=== PATIENT | female | born 1955 | race Caucasian/White ===

== ENCOUNTER 2018-01-03 06:04 | Day surgery (SDC) | payer MEDICARE, MEDICAID, SELFPAY ==
[2017-12-03 11:01] VITALS: BP 130/79; BMI 24.5
[2018-01-03 06:35] VITALS: BP 127/50; PULSE 77; RESP 16; TEMP 36.6; O2SAT 95; BMI 24.8
[2018-01-03 06:51] LABS: Bedside Glucose 171 mg/dL (70-110)
--- NOTE | 2018-01-03 08:24 | COLBX_PTH ---
PATIENT: ANIRUDH SHELBY LOC: EN U#:[id number] AGE/SX: 62/F ROOM: RE01/03/[address]: Dr. Marlen Narvaez MD : 1955 BED: DIS: 01/03/2018 SPEC #: [id number] RECD: 01/03/18 15:19 STATUS: SCOTT EMELY #: [id number] BALDEV: 01/03/18 08:[address]: Marlen Narvaez DEPT: SURGICAL PATHOLOGY RECD BY: Vargas Moore ENTERED: 01/04/18 09:29 SP TYPE: COLON BX RAFFAELE DR: Dr. Esdras Sy MD Tissues: A - Transverse colon B - Descending colon C - Descending colon D - Sigmoid colon biopsy E - Sigmoid colon biopsy Procedures: Surgery Specimen Level IV HEADER OPERATION: Colonoscopy PRE-OP DIAGNOSIS: Rectal bleeding TISSUE SUBMITTED: A ? Distal transverse colon polyp biopsy, B ? Descending colon polyp biopsy, C ? Distal descending colon polyp biopsy, D ? Mid sigmoid mass biopsy #1, E - Mid sigmoid mass biopsy?#2 MICROSCOPIC DIAGNOSIS A. Distal transverse colon polyp, biopsy: Fragments of tubular adenoma. B. Descending colon polyp, biopsy: Fragments of tubular adenoma. C. Distal descending colon polyp, biopsy: Tubular adenoma. D. Mid sigmoid mass, biopsy #1: Fragments of tubular adenoma. E. Mid sigmoid mass, biopsy #2: Tubular adenoma. AM:curtis 01/05/18 MICROSCOPIC DESCRIPTION Slides are reviewed. GROSS DESCRIPTION A - Received in fixative is one container labeled with the patient's name and designated transverse colon polyp biopsy. The specimen consists of multiple irregular fragments of light welsh soft tissue that in aggregate measure 0.5 x 0.5 x 0.1 cm. The specimen is totally submitted in one cassette. B - Received in fixative is one container labeled with the patient's name and designated descending colon polyp biopsy. The specimen consists of multiple irregular fragments of light welsh soft tissue that in aggregate measure 0.5 x 0.3 x 0.1 cm. The specimen is totally submitted in one cassette. C - Received in fixative is one container labeled with the patient's name and designated distal descending colon polyp biopsy. The specimen consists of two irregular fragments of light welsh soft tissue that in aggregate measure 0.4 x 0.3 x 0.1 cm. The specimen is totally submitted in one cassette. D - Received in fixative is one container labeled with the patient's name and designated mid sigmoid mass biopsy #1. The specimen consists of multiple irregular fragments of light welsh soft tissue that in aggregate measure 0.6 x 0.3 x 0.1 cm. The specimen is totally submitted in one cassette. E - Received in fixative is one container labeled with the patient's name and designated mid sigmoid mass biopsy #2. The specimen consists of one irregular fragment of light welsh soft tissue that measures 0.3 x 0.3 x 0.1 cm. The specimen is totally submitted in one cassette. / SJ:rg 01/04/18 TC:5 [facility]: [id number] x5 ADDENDUM ADDENDUM ADDENDUM ADDENDUM ADDENDUM ADDENDUM ADDENDUM ADDENDUM ADDENDUM ADDENDUM ADDENDUM ADDENDUM ADDENDUM 09/07/2018 15:57 ADDENDUM 09/07/2018 15:57 ADDENDUM 09/07/2018 15:57 ADDENDUM 09/07/2018 15:57 ADDENDUM 09/07/2018 15:57 This addendum is added to incorporate an outside pathology consultation report. The case was examined at [facility] (#[id number]) and the following diagnosis was rendered. A. Distal transverse colon polyp, biopsy: Multiple fragments of tubular adenoma. B. Descending colon polyp, biopsy: Fragments of tubular adenoma. C. Distal descending colon polyp, biopsy: Tubular adenoma. D. Mid sigmoid mass, biopsy #1: Multiple fragments of tubular adenoma. E. Mid sigmoid mass, biopsy #2: Tubular adenoma. Please see complete above mentioned consultation report in EMR
[2018-01-03 09:05] VITALS: BP 113/63; BP 127/50; PULSE 75; RESP 16; TEMP 36.1; O2SAT 99
[2018-01-03 09:10] VITALS: BP 127/50; BP 127/56; PULSE 72; RESP 16; O2SAT 96
[2018-01-03 09:15] VITALS: BP 127/50; BP 127/59; PULSE 77; RESP 16; O2SAT 97
[2018-01-03 09:20] VITALS: BP 127/50; BP 129/64; PULSE 74; RESP 16; TEMP 36.3; O2SAT 99
[2018-01-03 09:41] LABS: Absolute Neutrophil Count 4.1 X10^3/uL (2.0-7.7); Basophil# 0.04 X10^3/uL; Basophil% 0.6 % (0-1); Eosinophil# 0.16 X10^3/uL; Eosinophils% 2.4 % (0-5); Hematocrit 35.8 % (37-47); Lymphocyte % 32.4 % (19-41); Mean Corp Hgb Conc 30.7 g/gl (32-36); Mean Corpuscular Hgb 25.5 pg (27.0-32.0); Mean Corpuscular Volume 82.9 fL (81-99); Monocyte# 0.33 X10^3/uL; Monocyte% 4.9 % (0-10); Neutrophil # 4.05 X10^3/uL (2.7-7.7); Neutrophil % 59.6 % (47-70); POSITIVE COUNT NO; POSITIVE DIFFERENTIAL NO; POSITIVE MORPHOLOGY NO; Platelet Count 206 K/mm3 (150-450); RBC Distribution Width CV 15.8 % (11.6-14.6); RBC Distribution Width SD 48.3 fl (35.1-43.9); Red Blood Count 4.32 M/mm3 (4.2-5.4); White Blood Count 6.8 K/mm3 (4.4-11.0)
[2018-01-03 09:51] LABS: ALB/GLOB Ratio 0.8 RATIO (0.9-2.4); AST(SGOT) 20 U/L (15-37); Alanine Aminotransfer ALT/SGPT 20 U/L (13-56); Albumin, Serum 3.2 g/dL (3.2-5.0); Alkaline Phosphatase 100 U/L (45-117); Anion Gap 8 (5-15); BUN 8 mg/dL (7-18); BUN/Creat Ratio 10.4 RATIO (10-20); Calcium,Total 8.5 mg/dL (8.5-10.1); Chloride 103 mmol/L (98-107); Creatinine, Serum 0.77 mg/dL (0.55-1.02); EST Glomerular Filtration Rate 81 mL/min (>60); Est Glom Filt Rate - Afr Amer 98 mL/min (>60); Estimated Creatinine Clearance 66.25 ml/min; Globulin 3.9 g/dL (2.2-4.2); Glucose 165 mg/dL (74-106); Potassium 3.5 mmol/L (3.5-5.1); Protein, Total 7.1 g/dL (6.4-8.2); Sodium Level 137 mmol/L (136-145)
[2018-01-03 09:59] VITALS: BP 127/50
--- NOTE | 2018-01-03 13:21 | PCM.OPRPT ---
Report of Operation Date of Procedure: 01/03/18 Pre-Operative Diagnosis: Blood per rectum Post-Operative Diagnosis: Distal transverse colon, descending colon, distal descending colon polyps, mid sigmoid mass, mid sigmoid polyp Surgery/Procedure Performed:: Colonoscopy with cold forceps biopsy Type of Anesthesia:: MAC Anesthesiologist: Michael Moran Specimen's removed: 1. Distal transverse colon polyp, 2. Descending colon polyp, 3. Distal descending colon polyp, 4. Mid sigmoid colon mass, 5. Mid sigmoid polyp-bx Estimated Blood Loss (mL): minimal Description of Procedure: Procedure: Colonoscopy After reviewing the risks benefits, the patient was deemed in satisfactory condition to undergo procedure. After obtaining informed consent, the scope was passed under direct visualization. Throughout the procedure, the patient's blood pressure pulse and position saturations were monitored continuously anesthesia. The colonoscope was introduced through the anus and advanced to the cecum, identified by the appendiceal orifice, IC valve and transillumination. The colonoscopy was performed without difficulty. The patient tolerated procedure well. Quality of bowel prep was good. Findings: The perianal and digital rectal exam were normal. Small polyps were seen at the distal transverse colon, descending colon, distal descending colon removed completely with cold forceps biopsies. There is noted to be a large pedunculated mid sigmoid mass; however due to mobility of the mass as well as issues with insufflation and this area I was unable to snare the mass. I did get a couple biopsies from sigmoid colon mass. The proximal at about 37 cm, distal at about 35 cm and base areas were also injected with Kristin ink. Also noted to be sigmoid polyp more distal to the mass near the distal Kristin ink injection site, it was not completely removed due to insufflation issues. A biopsy was taken of the mid sigmoid polyp. Otherwise the colon (entire examined portion) appeared normal. Retroflexed view of the distal rectum and anal verge was normal and showed no anal or rectal abnormalities Impression: 1. Distal transverse, descending colon, distal descending colon polyps. Biopsied 2. Mid sigmoid pedunculated mass and adjacent mid sigmoid polyp. Biopsied and marked with Kristin ink proximal, distal and at the base of mass, adjacent polyp near distal injection site. 3. The distal rectal and anal verge were normal on retroflexed view. Recommendations: Await biopsies We will check CBC with differential, CMP, CEA. Will refer GI doctor see if they are able to remove sigmoid mass and adjacent polyp. Discussed patient that even if they were able to remove it depending on the histology she made need bowel resection verse surveillance - Complications none
[2018-01-04 08:31] LABS: Carcinoembryonic Antigen 8.4 ng/mL (0.0-4.7)
== END 2018-01-03 09:59 | disposition home or self-care (01) ==
LOC: EN 06:05 → AC 06:07
PROVIDERS: Family Provider Family Medicine; PCP Family Medicine; Visit Provider Surgery
PROC: 0DJD8ZZ Inspection of Lower Intestinal Tract, Via Natural or Artificial Opening Endoscopic (ICD-10-PCS; CPT 45378; principal; 2018-01-03 07:55)
DX: D12.3 Benign neoplasm of transverse colon (principal); D12.4 Benign neoplasm of descending colon; K63.89 Other specified diseases of intestine; D12.5 Benign neoplasm of sigmoid colon; I25.10 Atherosclerotic heart disease of native coronary artery without angina pectoris; E11.9 Type 2 diabetes mellitus without complications; M19.90 Unspecified osteoarthritis, unspecified site; K21.0 Gastro-esophageal reflux disease with esophagitis; K43.9 Ventral hernia without obstruction or gangrene; I25.2 Old myocardial infarction; J45.909 Unspecified asthma, uncomplicated; E78.00 Pure hypercholesterolemia, unspecified; Z86.010 Personal history of colon polyps; Z78.0 Asymptomatic menopausal state; Z95.1 Presence of aortocoronary bypass graft; Z95.5 Presence of coronary angioplasty implant and graft; Z90.710 Acquired absence of both cervix and uterus; Z90.49 Acquired absence of other specified parts of digestive tract; Z90.89 Acquired absence of other organs; Z87.891 Personal history of nicotine dependence; Z79.82 Long term (current) use of aspirin; Z79.84 Long term (current) use of oral hypoglycemic drugs; Z79.899 Other long term (current) drug therapy
CPT/HCPCS: 45380; 45381; 36415; 80053; 82378; 82962; 85025; 88305; J7120; A4648

== ENCOUNTER → 2018-02-07 10:48 | Outpatient (CLI) | payer MEDICARE, MEDICAID, SELFPAY ==
[2018-02-08 11:22] LABS: Carcinoembryonic Antigen 10.3 ng/mL (0.0-4.7)
== END ==
PROVIDERS: Family Provider Family Medicine; PCP Family Medicine; Visit Provider Family Medicine
DX: K63.5 Polyp of colon (principal)
CPT/HCPCS: 36415; 82378

== ENCOUNTER → 2018-02-18 15:07 | Outpatient (CLI) | payer MEDICARE, MEDICAID, SELFPAY ==
--- NOTE | 2018-02-18 15:13 | HPBI_ITS ---
MAMMOGRAPHY - BILATERAL SCREENING 3-D BRITTNI SYNTHESIS REASON FOR EXAM: Female, 62 years old. Bilateral Screening 3-D tomosynthesis PERTINENT HISTORY: Cousins with breast cancer. TECHNIQUE: 2-D mammograms and 3-D Brittni synthesis of the breast (s) were performed. CAD was performed. COMPARISON: None. FINDINGS: The breast composition is composed of scattered fibroglandular density. Scattered benign calcifications are seen. No dense spiculated masses or suspicious microcalcifications are identified. No architectural distortion is identified. There is no skin thickening or retraction. There has been no significant change since the prior study. HPBI/SCREENING MAMM (CAD), BILAT IMPRESSION: No mammographic signs of malignancy. Routine yearly mammograms recommended. ASSESSMENT CATEGORY: BIRADS Category 2: Benign. A letter regarding these results will be sent to the patient by the facility within 30 days. FOLLOW UP RECOMMENDATION: Yearly follow up mammogram recommended. (A) Approximately 10% of breast cancers are not detected by mammography. A normal mammogram should not delay biopsy of a clinically suspicious abnormality. Electronically Signed: Doni Bocaengra MD at 9:25 EDT , Service support ,
== END ==
PROVIDERS: Family Provider Family Medicine; PCP Family Medicine; Visit Provider Family Medicine
DX: Z12.31 Encounter for screening mammogram for malignant neoplasm of breast (principal)
CPT/HCPCS: 77063; 77067

== ENCOUNTER → 2018-02-24 16:49 | Outpatient (CLI) | payer MEDICARE, MEDICAID, SELFPAY ==
--- NOTE | 2018-02-24 16:51 | CT_ITS ---
STUDY: CT CHEST WITH CONTRAST REASON FOR EXAM: Female, 62 years old. Left lower quadrant pain and elevated CEA. Recent colonoscopy with mass removed from the colon. Prior history of CABG, myocardial infarction, cardiac stents and diabetes. RADIATION DOSAGE (If Supplied By Facility): CTDIvol = ( 11.58 ) mGy, DLP = ( 627.82 ) mGycm TECHNIQUE: Transaxial imaging was performed following intravenous administration of 100 ml of Isovue 300 contrast material. Multiplanar coronal and sagittal images were reformatted. Individualized dose optimization techniques were used for this CT. COMPARISON: Prior chest radiograph of January 25, 2016 FINDINGS: Minimal bullous emphysematous changes of the upper lobes. Benign left anterior paramediastinal calcification. Calcified granuloma of the posterior left lower lobe. Otherwise negative for major consolidation, focal atelectasis, pulmonary nodules or pleural effusion. Normal heart and pericardium. Coronary calcification and coronary stent artifacts. Calcified subcarinal lymph nodes. Calcified left hilar lymph node. Calcified middle mediastinal lymph nodes. Normal enhanced pulmonary arteries. There is atherosclerotic calcification of the aortic arch with tortuosity and elongation of the aortic arch and descending thoracic aorta. There are multi-level degenerative changes of the thoracic spine. Status post prior midline sternotomy. There is no demonstrated abnormality of the visualized upper abdomen. CT/Chest WITH Contrast IMPRESSION: Negative for consolidation, focal atelectasis, pulmonary nodules or pleural effusion. Mild emphysematous changes. Benign calcifications. Stigmata of old granulomatous disease. Coronary calcification and coronary stent artifacts. Calcified mediastinal and hilar lymph nodes. Electronically Signed: Thais Wren MD at 20:22 EDT , Service support ,
--- NOTE | 2018-02-24 16:51 | CT_ITS ---
STUDY: CT PELVIS WITH CONTRAST REASON FOR EXAM: Female, 62 years old. Left lower quadrant pain with elevated CEA. Recent colonoscopy with mass removed from the colon. Prior history of smoking, appendectomy, cholecystectomy, hysterectomy, hernia repair, CABG, myocardial infarction and cardiac stents. RADIATION DOSAGE (If Supplied By Facility): CTDIvol = ( 11.58 ) mGy, DLP = ( 627.82 ) mGycm TECHNIQUE: Transaxial imaging of the pelvis was performed with oral contrast. 100 ml of Isovue 300 contrast was administered intravenously. Multiplanar coronal and sagittal images were reformatted. Individualized dose optimization techniques were used for this CT. COMPARISON: None. FINDINGS: Normal urinary bladder. Normal visualized small intestine. Normal visualized colon. There is no pelvic fluid. Status post hysterectomy with no pelvic mass or free fluid of the pelvis. Mild atherosclerotic plaque of the pelvic vessels. Minimal fatty umbilical hernia. Normal osseous structures. CT/Pelvis WITH IV Contrast IMPRESSION: No acute bowel related findings. Normal small bowel and colon of the pelvis. Negative for evidence of obstruction, mass density, perforation or inflammatory bowel changes. Status post hysterectomy with no pelvic mass or free fluid of the pelvis. Unremarkable nondistended urinary bladder and ureters. Minimal fatty umbilical hernia. Negative for pelvic adenopathy. Normal osseous structure of the pelvis. Electronically Signed: Thais Wren MD at 17:48 EDT , Service support ,
[2018-02-24 17:06] LABS: CREATININE FINGERSTICK 0.9 mg/dL (0.55-1.02); EGFR FINGERSTICK > 60.0000 mL/min (>60)
== END ==
PROVIDERS: Family Provider Family Medicine; PCP Family Medicine; Visit Provider Family Medicine
DX: R91.1 Solitary pulmonary nodule (principal); R10.32 Left lower quadrant pain; R97.0 Elevated carcinoembryonic antigen [CEA]
CPT/HCPCS: 36415; 71260; 72193; 82378; Q9967

== ENCOUNTER 2018-04-11 08:19 | Day surgery (SDC) | payer MEDICARE, MEDICAID, SELFPAY ==
[2018-04-11] VITALS (7 sets, daily range): BP systolic 106–138; BP diastolic 63–72; PULSE 59–81; RESP 16–18; TEMP 36.1–36.9; O2SAT 95–97; BMI 25.5
--- NOTE | 2018-04-11 | COLBX_PTH ---
PATIENT: ANIRUDH SHELBY LOC: EN U#:[id number] AGE/SX: 62/F ROOM: RE04/11/[address]: Dr. Marlen Narvaez MD : 1955 BED: DIS: 04/11/2018 SPEC #: [id number] RECD: 04/11/18 13:44 STATUS: SCOTT REBrandan #: [id number] BALDEV: 04/11/18 00:[address]: Marlen Narvaez DEPT: SURGICAL PATHOLOGY RECD BY: Zoran Haywood ENTERED: 04/11/18 13:44 SP TYPE: COLON BX RAFFAELE DR: Dr. Esdras Sy MD Tissues: A - Descending colon B - Sigmoid colon biopsy Procedures: Surgery Specimen Level IV HEADER OPERATION: Colonoscopy PRE-OP DIAGNOSIS: History of colon polyps TISSUE SUBMITTED: A ? Descending colon polyp, B ? Sigmoid colon polyp at 37 cm MICROSCOPIC DIAGNOSIS A. Descending colon polyp, biopsy: Polypoid fragment of colonic mucosa with focal adenomatous changes. B. Sigmoid colon polyp at 37 cm, biopsy: Fragments of tubular adenoma. RASHAAD:curtis 04/12/18 MICROSCOPIC DESCRIPTION Slides are reviewed. GROSS DESCRIPTION A - Received in fixative is one container labeled with the patient's name and designated descending colon polyp. The specimen consists of one irregular fragment of light welsh soft tissue that measures 0.4 x 0.4 x 0.1 cm. The specimen is totally submitted in one cassette. B - Received in fixative is one container labeled with the patient's name and designated sigmoid colon polyp. The specimen consists of multiple irregular fragments of light welsh soft tissue that in aggregate measure 1 x 0.3 x 0.1 cm. The specimen is totally submitted in one cassette. / RASHAAD:curtis 04/11/18 TC:1 CPT: 20770 x2 ADDENDUM ADDENDUM ADDENDUM ADDENDUM ADDENDUM ADDENDUM ADDENDUM ADDENDUM ADDENDUM ADDENDUM 09/07/2018 15:52 ADDENDUM 09/07/2018 15:52 ADDENDUM 09/07/2018 15:52 ADDENDUM 09/07/2018 15:52 ADDENDUM 09/07/2018 15:52 This addendum is added to incorporate an outside pathology consultation report. The case was examined at [facility] (#[id number]) and the following diagnosis was rendered. A. Descending colon polyps, biopsy: Incipient tubular adenoma. B. Sigmoid colon polyp at 27 cm, biopsy: Fragments of tubular adenoma. Please see complete above mentioned consultation report in EMR
[2018-04-11 08:56] LABS: Bedside Glucose 197 mg/dL (70-110)
--- NOTE | 2018-04-11 10:27 | PCM.OPRPT ---
Report of Operation Date of Procedure: 04/11/18 Pre-Operative Diagnosis: History of large colon polyp removed piecemeal from sigmoid Post-Operative Diagnosis: Descending and sigmoid colon polyp Surgery/Procedure Performed:: Colonoscopy with snare polypectomy Type of Anesthesia:: MAC Anesthesiologist: Tommy Olivares Specimen's removed: 1. Descending colon polyp, 2. Sigmoid colon polyp Estimated Blood Loss (mL): Minimal Description of Procedure: Procedure: Colonoscopy After reviewing the risks benefits, the patient was deemed in satisfactory condition to undergo procedure. After obtaining informed consent, the scope was passed under direct visualization. Throughout the procedure, the patient's blood pressure pulse and position saturations were monitored continuously anesthesia. The colonoscope was introduced through the anus and advanced to the cecum, identified by the appendiceal orifice, IC valve and transillumination. The colonoscopy was performed without difficulty. The patient tolerated procedure well. Quality of bowel prep was good. Findings: The perianal and digital rectal exam were normal. Small sessile polyps are seen in the descending colon as well as in the sigmoid colon near the tattoo site removed with snare polypectomy at about 37 cm. Otherwise the colon (entire examined portion) appeared normal. Retroflexed view of the distal rectum and anal verge was normal and showed no anal or rectal abnormalities Impression: 1. Small sessile descending and sigmoid colon polyps 2. The distal rectal and anal verge were normal on retroflexed view. Recommendations: Await biopsies Repeat colonoscopy in 1-2 years for screening purposes, depending on biopsies
== END 2018-04-11 11:00 | disposition home or self-care (01) ==
LOC: EN 08:20 → AC 08:20
PROVIDERS: Family Provider Family Medicine; PCP Family Medicine; Visit Provider Surgery
PROC: 0DJD8ZZ Inspection of Lower Intestinal Tract, Via Natural or Artificial Opening Endoscopic (ICD-10-PCS; CPT 45378; principal; 2018-04-11 09:25)
DX: D12.5 Benign neoplasm of sigmoid colon (principal); D12.4 Benign neoplasm of descending colon; I25.10 Atherosclerotic heart disease of native coronary artery without angina pectoris; E11.9 Type 2 diabetes mellitus without complications; E78.5 Hyperlipidemia, unspecified; K21.0 Gastro-esophageal reflux disease with esophagitis; I25.2 Old myocardial infarction; M47.9 Spondylosis, unspecified; F41.9 Anxiety disorder, unspecified; F32.9 Major depressive disorder, single episode, unspecified; Z87.891 Personal history of nicotine dependence; Z95.5 Presence of coronary angioplasty implant and graft; Z79.84 Long term (current) use of oral hypoglycemic drugs; Z79.82 Long term (current) use of aspirin; Z79.899 Other long term (current) drug therapy
CPT/HCPCS: 45380; 82962; 88305; J7120

== ENCOUNTER → 2018-08-10 11:16 | Outpatient (CLI) | payer MEDICARE, MEDICAID, SELFPAY ==
[2018-08-10 14:36] LABS: Absolute Lymphocyte Count 2.33 X10^3/ul (0.83-4.51); Absolute Neutrophil Count 5.4 X10^3/uL (2.0-7.7); Basophil# 0.05 X10^3/uL; Basophil% 0.6 % (0-1); Eosinophil# 0.17 X10^3/uL; Hematocrit 39.5 % (37-47); Lymphocyte # 2.33 X10^3/ul (4.0); Lymphocyte % 27.7 % (19-41); Mean Corp Hgb Conc 30.4 g/gl (32-36); Mean Corpuscular Hgb 24.8 pg (27.0-32.0); Mean Corpuscular Volume 81.6 fL (81-99); Mean Platelet Vol. 9.4 fl (6.2-12.0); Monocyte# 0.47 X10^3/uL; Monocyte% 5.6 % (0-10); Neutrophil # 5.37 X10^3/uL (2.7-7.7); Platelet Count 290 K/mm3 (150-450); RBC Distribution Width CV 16.3 % (11.6-14.6); RBC Distribution Width SD 48.8 fl (35.1-43.9); Red Blood Count 4.84 M/mm3 (4.2-5.4); White Blood Count 8.4 K/mm3 (4.4-11.0)
[2018-08-10 14:38] LABS: POSITIVE COUNT NO; POSITIVE DIFFERENTIAL NO; POSITIVE MORPHOLOGY NO
[2018-08-10 14:39] LABS: Erythrocyte Sedimentation Rate 84 mm/hr (0-30)
[2018-08-10 14:50] LABS: Vitamin B12 565 pg/mL (211-911); Vitamin D,25 Hydroxy 29.2 ng/mL (29.95-100.01)
[2018-08-10 15:01] LABS: ALB/GLOB Ratio 0.9 RATIO (0.9-2.4); AST(SGOT) 17 U/L (15-37); Alanine Aminotransfer ALT/SGPT 18 U/L (13-56); Albumin, Serum 3.7 g/dL (3.2-5.0); Alkaline Phosphatase 116 U/L (45-117); Anion Gap 10 (5-15); BUN 13 mg/dL (7-18); BUN/Creat Ratio 15.2 RATIO (10-20); Calcium,Total 9.3 mg/dL (8.5-10.1); Chloride 101 mmol/L (98-107); Cholesterol 116 mg/dL (200); Creatinine, Serum 0.86 mg/dL (0.55-1.02); EST Glomerular Filtration Rate 72 mL/min (>60); Est Glom Filt Rate - Afr Amer 87 mL/min (>60); Globulin 4.3 g/dL (2.2-4.2); Glucose 162 mg/dL (74-106); High Density Lipoprotein 33 mg/dL; Iron 55 ug/dL (50-170); Potassium 4.3 mmol/L (3.5-5.1); Sodium Level 136 mmol/L (136-145); Thyroid Stim Hormone (TSH) 1.33 uIU/mL (0.358-3.74); Triglycerides 189 mg/dL; Very Low Density Lipoprotein 38 mg/dL (5-40)
[2018-08-12 08:47] LABS: Carcinoembryonic Antigen 11.1 ng/mL (0.0-4.7)
== END ==
PROVIDERS: Family Provider Family Medicine; PCP Family Medicine; Visit Provider Family Medicine
DX: E11.9 Type 2 diabetes mellitus without complications (principal); R97.0 Elevated carcinoembryonic antigen [CEA]; R53.83 Other fatigue
CPT/HCPCS: 36415; 80053; 80061; 82306; 82378; 82607; 83540; 84443; 85025; 85652

== ENCOUNTER → 2018-11-10 11:01 | Outpatient (CLI) | payer MEDICARE, MEDICAID, SELFPAY ==
[2018-11-10 11:01] VITALS: BMI 24.8
[2018-11-10 12:02] LABS: Erythrocyte Sedimentation Rate 76 mm/hr (0-30)
[2018-11-10 12:13] LABS: CRP 6.55 mg/L (0.0-3.0)
[2018-11-10 12:21] LABS: Vitamin B12 578 pg/mL (211-911); Vitamin D,25 Hydroxy 34.5 ng/mL (29.95-100.01)
[2018-11-11 12:35] LABS: Carcinoembryonic Antigen 9.4 ng/mL (0.0-4.7)
--- OUTSIDE RECORDS SUMMARY | 2018-12-27 06:22 | XMS RPT_ITS ---
:1955 Author Organization OHIP Support Name Relationship Address Phone D Unavailable Unavailable Unavailable SHELBY, FREDIA Unavailable [address] + [place] [address] GAMMELL, JANETH Unavailable [address] + [place] [address] D Unavailable Unavailable Unavailable SHELBY, FREDIA Unavailable [address] + [place] [address] GAMMELL, JANETH Unavailable [address] + [place] [address] D Unavailable Unavailable Unavailable SHELBY, FREDIA Unavailable [address] + [place] [address] GAMMELL, JANETH Unavailable [address] + [place] [address] D Unavailable Unavailable Unavailable SHELBY, FREDIA Unavailable [address] + [place] [address] GAMMELL, JANETH Unavailable [address] + [place] [address] D Unavailable Unavailable Unavailable SHELBY, FREDIA Unavailable [address] + [place] [address] GAMMELL, JANETH Unavailable [address] + [place] [address] D Unavailable Unavailable Unavailable SHELBY, FREDIA Unavailable [address] + [place] [address] GAMMELL, JANETH Unavailable [address] + [place] [address] D Unavailable Unavailable Unavailable SHELBY, FREDIA Unavailable [address] [phone] [place] [address] GAMMELL, JANETH Unavailable [address] + [place] [address] D Unavailable Unavailable Unavailable SHELBY, FREDIA Unavailable [address] [phone]~330-2 [place] [address] GAMMELL JANETH Unavailable [address] + [place] [address] D Unavailable Unavailable Unavailable SHELBY, FREDIA Unavailable [address] [phone]~[phone] [place] [address] GAMMELL JANETH Unavailable [address] + [place] [address] D Unavailable Unavailable Unavailable SHELBY, FREDIA Unavailable [address] [phone] [place] [address] GAMMELL JANETH Unavailable [address] + [place] [address] D Unavailable Unavailable Unavailable SHELBY, FREDIA Unavailable [address] [phone]~330-2 [place] [address] GAMMELL JANETH Unavailable [address] + [place] [address] D Unavailable Unavailable Unavailable SHELBY, FREDIA Unavailable [address] [phone]~330-2 [place] [address] GAMMELL JANETH Unavailable [address] + [place] [address] D Unavailable Unavailable Unavailable SHELBY, FREDIA Unavailable [address] [phone]~330-2 [place] [address] GAMMELL JANETH Unavailable [address] + [place] [address] D Unavailable Unavailable Unavailable SHELBY, FREDIA Unavailable [address] [phone]~330-2 [place] [address] D Unavailable Unavailable Unavailable SHELBY, FREDIA Unavailable [address] [phone]~330-2 [place] [address] SHELBY, FREDIA Unavailable Unavailable + D Unavailable Unavailable Unavailable SHELBY, FREDIA Unavailable [address] [phone]~330-2 [place] [address] D Unavailable Unavailable Unavailable SHELBY, FREDIA Unavailable [address] [phone]~330-2 [place] [address] D Unavailable Unavailable Unavailable SHELBY, FREDIA Unavailable [address] [phone]~330-2 [place] [address] D Unavailable Unavailable Unavailable SHELBY, FREDIA Unavailable [address] [phone]~330-2 [place] [address] Care Team Providers Name Role Phone RobothamMisaelMarlen Attending Unavailable Robotham, Marlen Referring Unavailable Ranney, Christopher Primary Care Unavailable Ranney, Christopher Attending Unavailable Ranney, Christopher Primary Care Unavailable Loraine Willingham Attending Unavailable Loraine Willingham Referring Unavailable Ranney, Christopher Primary Care Unavailable Gerardo Lopes Attending Unavailable Gerardo Lopes Referring Unavailable Ranney, Christopher Primary Care Unavailable Robotham, Marlen Attending Unavailable Robotham, Marlen Referring Unavailable Ranney, Christopher Primary Care Unavailable Robotham, Marlen Consulting Unavailable Chase Mancilla Attending Unavailable Gerardo Lopes Referring Unavailable RanneyTyrel Attending Unavailable Ranney, Christopher Primary Care Unavailable Ranney, Christopher Attending Unavailable Ranney, Christopher Referring Unavailable Ranney, Christopher Primary Care Unavailable Ranney, Christsyer Attending Unavailable Ranney, Christopher Referring Unavailable Ranney, Christopher Primary Care Unavailable Pablo West Attending Unavailable Ranney, Christopher Referring Unavailable Ranney, Christopher Primary Care Unavailable Pablo West Attending Unavailable Ranney, Christopher Referring Unavailable Ranney, Christopher Primary Care Unavailable Pablo West Consulting Unavailable Pablo West Attending Unavailable Ranney, Christopher Referring Unavailable Ranney, Christopher Primary Care Unavailable Pablo West Consulting Unavailable Robotham, Marlen Attending Unavailable Ranney, Christopher Referring Unavailable Robotham, Marlen Attending Unavailable Robotham, Marlen Referring Unavailable Ranney, Christopher Primary Care Unavailable Robotham, Marlen Attending Unavailable Robotham, Marlen Referring Unavailable Ranney, Christopher Primary Care Unavailable Robotham, Marlen Consulting Unavailable Pablo West Attending Unavailable Ranney, Christopher Referring Unavailable Ranney, Christopher Primary Care Unavailable Pablo West Consulting Unavailable Pablo West Attending Unavailable Ranney, Christopher Referring Unavailable Ranney, Christopher Primary Care Unavailable Pablo West Consulting Unavailable Pablo Wets Attending Unavailable Tyrel Sy Referring Unavailable Tyrel Sy Primary Care Unavailable MaribelPablo lei Consulting Unavailable Tyrel Sy Attending Unavailable Tyrel Sy Primary Care Unavailable JONATAN CAN Admitting Unavailable JONATAN CAN Attending Unavailable DEBBIE ARCHIBALD Consulting Unavailable TYREL SY RAAD Primary Care Unavailable STEWART FELICIANO Consulting Unavailable GERARDO LOPES Attending Unavailable TYREL SY Primary Care Unavailable GERARDO LOPES Referring Unavailable Dr. Jonatan Can Attending Unavailable GERARDO LOPES Attending Unavailable GERARDO LOPES Referring Unavailable ANNETTE DIAMOND Attending Unavailable TYREL SY Referring Unavailable GERARDO LOPES Attending Unavailable GERARDO LOPES Referring Unavailable PROBLEMS PROBLEMS DATE TYPE CONDITION / CODE ATTENDING STATUS SOURCE 11/30/2018 Unknown J44.1 - Chronic Vannesaisaiah Loraine Active [facility] obstructive pulmonary Community disease with (acute) Hospital exacerbation / Repository J44.1(ICD-10) 05/16/2018 Unknown R91.1 - Solitary Pablo West Active [place] pulmonary nodule / Community R91.1(ICD-10) Hospital Repository 05/16/2018 Unknown Z86.010 - Personal Pablo West Active [facility] history of colonic Community polyps / Hospital Z86.010(ICD-10) Repository 07/04/2018 Unknown D12.6 - 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, Community unspecified / Hospital D12.6(ICD-10) Repository 07/04/2018 Unknown R79.89 - Other Pablo West Active [facility] specified abnormal Community findings of blood Hospital chemistry / Repository R79.89(ICD-10) 06/02/2018 Unknown R89.9 - Unspecified PraPablo lei Active [place] abnormal finding in Community specimens from other Hospital organs, systems and Repository tissues / R89.9(ICD-10) 03/14/2018 Unknown R97.0 - Elevated Pablo West Active [place] carcinoembryonic Community antigen [CEA] / Hospital R97.0(ICD-10) Repository 01/14/2018 Active ENC F/U EX AFTR CMPL JONTAAN CAN Active [facility] [place] NOT MAL MARCELINA / J Hospital Z09(ICD-10) Repository 01/14/2018 Principle PERSONAL HISTORY OF TONIA, JONATAN Active [facility] Diagnosis COLONIC POLYPS / J Hospital Z86.010(ICD-10) Repository 01/14/2018 Secondary ENC F/U EX AFTR CMPL TONIA, JONATAN Active [facility] Diagnosis [place] NOT MAL MARCELINA / Hospital Z09(ICD-10) Repository 01/14/2018 Secondary BENIGN NEOPLASM OF TONIA, JONATAN Active [facility] Diagnosis TRANSVERSE COLON / J Hospital D12.3(ICD-10) Repository 01/14/2018 Secondary BENIGN NEOPLASM OF TONIA, JONATAN Active [facility] Diagnosis SIGMOID COLON / Hospital D12.5(ICD-10) Repository 01/14/2018 Secondary FIRST DEGREE TONIA, JONATAN Active [facility] Diagnosis HEMORRHOIDS / Hospital K64.0(ICD-10) Repository 01/14/2018 Secondary TYPE 2 DM WITHOUT TONIA, JONATAN Active [facility] Diagnosis COMPLICATIONS / Hospital E11.9(ICD-10) Repository 01/14/2018 Secondary ACUTE MYOCARDIAL TONIA, JONATAN Active [facility] Diagnosis INFARCTION UNSPEC / Hospital I21.9(ICD-10) Repository 01/14/2018 Secondary UNSPECIFIED TONIA, JONATAN Active [facility] Diagnosis OSTEOARTHRITIS UNS Hospital SITE / M19.90(ICD-10) Repository 01/14/2018 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, JONATAN Active [facility] Diagnosis ANGINA PECTORIS / Hospital I25.10(ICD-10) Repository 01/14/2018 Secondary PRESENCE COR ANGPLSTY TONIA, JONATAN Active [facility] Diagnosis IMPLANTANDGRAFT / Hospital Z95.5(ICD-10) Repository 01/14/2018 Secondary OTH FLUE GAS ANALYST CURRENT TONIA, JONATAN Active [facility] Diagnosis DRUG THERAPY / Hospital Z79.899(ICD-10) Repository 01/14/2018 Secondary PERSONAL HISTORY OF TONIA, JONATAN Active [facility] Diagnosis NICOTINE DEPEND / Hospital Z87.891(ICD-10) Repository 12/30/2017 Active Atherosclerotic heart MARIANNE, Active [facility] disease of [facility] Other coronary artery [place] without angina Repository pectoris / I25.10(ICD-10) 12/30/2017 Admitting Unknown / MARIANNE, Active [facility] diagnosis UNK(Unknown) [facility] Repository PROCEDURES PROCEDURES No Procedure Records FoundRESULTS RESULTS CHEST PA AND LATERAL Observed: 11/30/2018 Status: F Source: [place] 5:14 PM [facility] HOSPITAL REPOSITORY [facility] Imaging Services [address] [place] [address] Chest PA and Lateral MR#: [id number] Acct: [id number] Name: KAROLNIA SHELBY Rep #: [id number] : 1955 F 63 From: Geovani Short MD PCP: Tyrel Sy MD Status: REG CLI Study: Chest PA and Lateral Date of Exam: 11/30/18 Exam# [id number] Ordering Dr: Loraine Willingham MD STUDY: X-RAY CHEST REASON FOR EXAM: Female, 63 years old. Cough TECHNIQUE: 2 views COMPARISON: January 25, 2016 FINDINGS: Median sternotomy wires are in place. A small calcified granuloma is in the left lower lobe. There is no acute pneumonia or failure and there are no pleural effusions. Normal visualized thoracic spine. Normal visualized ribs, clavicles, and shoulders. There is no demonstrated abnormality of the visualized soft tissue structures of the upper abdomen. RAD/Chest PA and Lateral IMPRESSION: No acute findings in the lungs Electronically Signed: Geovani Short MD at 6:45 EST Tel , Service support , CC: Loraine Willingham MD; Tyrel Sy MD Grief Counselor: Signed ERYTHROCYTE SED RATE Collected: 11/10/2018 Status: F Source: [place] 11:02 AM [facility] REPOSITORY TYPE CODE TESTS RESULT OUT OF RANGE REFERENCE UNITS LAB L102.0000 0-30 mm/hr High SED RATE 76 Performed By: #### L101.9900, L503.0105, L506.1000 #### [facility] [address] [place], [address] #### L3100.2300 #### [facility] (refer to report for specific site) refer to report for address and phone number VITAMIN B12 Collected: 11/10/2018 Status: F Source: [place] 11:02 AM [facility] REPOSITORY TYPE CODE TESTS RESULT OUT OF RANGE REFERENCE UNITS LAB L503.0105 211-911 pg/mL Normal Vitamin B12 578 Performed By: #### L101.9900, L503.0105, L506.1000 #### [facility] [address] [facility] [place], [address] #### L3100.2300 #### [facility] (refer to report for specific site) refer to report for address and phone number VITAMIN D,25 HYDROXY Collected: 11/10/2018 Status: F Source: [place] 11:02 AM [facility] REPOSITORY TYPE CODE TESTS RESULT OUT OF RANGE REFERENCE UNITS LAB L506.1000 29.95-100.01 ng/mL Normal Vitamin D 34.5 25-OH Result Comment: Vitamin D 25(OH) Status Range Deficiency <20 ng/mL (50nmol/L) Insuffciency 20 - 30 ng/mL (50 - 75 nmol/L) Sufficiency 30 - 100 ng/mL (75 - 250 nmol/L) Toxicity >100 ng/mL (>250 nmol/L) Performed By: #### L101.9900, L503.0105, L506.1000 #### [facility] [address] [facility] [place], [address] #### L3100.2300 #### [facility] (refer to report for specific site) refer to report for address and phone number CARCINOEMBRYONIC ANTIGEN Collected: 11/10/2018 Status: F Source: [place] 11:02 AM [facility] REPOSITORY TYPE CODE TESTS RESULT OUT OF RANGE REFERENCE UNITS LAB L3100.2300 0.0-4.7 ng/mL High CEA 9.4 Result Comment: [place] ECLIA methodology Nonsmokers <3.9 Smokers <5.6 Performed at: [address] [id number] Unemployment Insurance Director: Jose Le PhD, Phone: [phone] Performed By: #### L101.9900, L503.0105, L506.1000 #### [facility] [address] [place], [address] #### L3100.2300 #### [facility] (refer to report for specific site) refer to report for address and phone number CRP Collected: 11/10/2018 Status: F Source: [place] 11:02 AM [facility] REPOSITORY TYPE CODE TESTS RESULT OUT OF RANGE REFERENCE UNITS LAB L501.6710 0.0-3.0 mg/L High 6.55 C-REACTIVE PROT Result Comment: C-Reactive Protein (CRP) provides useful information for the diagnosis, therapy and monitoring of inflammatory processes and associated diseases. For the evaluation of Relative Risk for Cardiovascular Disease, a High Sensitivity CRP (HSCRP) should be ordered. Performed By: #### L501.6710 #### [facility] [address] [place], [address] CNCO Observed: 09/13/2018 Status: COMPLETED Source: [place] 12:00 AM [facility] REPOSITORY HNO ID: [id number] Author: Annette Diamond Service: Colorectal Author Type: Physician Type: Letter Filed: 11/03/2018 2:29 PM Note Text: September 15, 2018 Tyrel Sy M.D. [facility] [address] [place] [address] NAME: Karolina Shelby [facility] NO.: [id number] DATE OF SERVICE: 09/13/[address] Sy: I saw your patient, Karolina Shelby, on August 22, 2018. Mrs. Shelby is a 62-year-old woman with a history of colonic polyps that dates to 2010. In December 2017, Mrs. Shelby had a colonoscopy performed with removal of a sigmoid polyp. She reports having had a follow-up colonoscopy 3 months later, which was reported to be normal. Around that time, she had a CEA level performed, which was mildly elevated and reported to be 11 ng/mL. She had had a PET scan ordered on May 16, 2018, which also was reported as being normal. Mrs. Shelby reports having some blood per rectum on wiping. She is taking a mini aspirin daily. Her bowel function is one where she experiences occasional constipation, which resolves on the without the intervention, and occasional left lower quadrant abdominal pain. She had a family history of several cousins having had cancers of the esophagus and colon and she believes aunts have colitis. She has a past history of having had a cardiac surgery 12 years earlier and a stent placed 2 years after that. She is currently not smoking. When I examined her, her abdomen was normal. The perineum was normal. Digital exam and rigid sigmoidoscopy to the proximal rectum was normal with no evidence of mucus or blood. Since that time, we have had the slides from the polypectomies that have been performed and I enclosed a copy of the report for your records. I have reviewed the reports of the PET scans and most recent colonoscopy report, which was forwarded to us, and these are normal. I believe the CEA level, which is a little elevated, is consistent with her long history of smoking and bronchitis. I do not believe Mrs. Shelby needs to have anything further done at this time, but I would recommend that she have another colonoscopy 1 year after the most recent colonoscopy. I would be happy to see Mrs. Shelby at any time in the future if the need arises. Yours faithfully, Annette Diamond MD CC:Karolina Shelby [address] [place] [address] Date Dictated: 09/15/2018 Date Typed: [facility] 09/15/2018 JOB# [id number] Enclosure: Copy of polypectomy report. CNCO Observed: 09/12/2018 Status: COMPLETED Source: [place] 12:00 AM [facility] REPOSITORY HNO ID: [id number] Author: Annette Diamond Service: Colorectal Author Type: Physician Type: Letter Filed: 11/03/2018 2:28 PM Note Text: September 15, 2018 Tyrel Sy M.D. [facility] [address] [address] NAME: Karolina Shelby [facility] NO.: [id number] DATE OF SERVICE: 09/12/[address] Sy: I saw your patient, Mrs. Karolina Shelby, on August 22, 2018. Mrs. Shelby is a 62-year-old woman who had a history of colonic polyps who had undergone a colonoscopy in 2010 and in December 2017, which revealed a sigmoid polyp. She indicated that this was unable to be removed initially and a second colonoscopy was performed a week later with the polyp being removed and a second sessile polyp removed in the transverse colon. Mrs. Shelby indicated that she had been told the pathology was benign. She had undergone a colonoscopy 3 months later in March and was told that this was normal. She indicates that at that time her CEA level was checked and was mildly elevated at 8 and more recently was checked again and was 11. In April, she had seen an oncologist who had ordered a PET scan, which was negative, and she was now presenting for another opinion regarding the rising CEA. Mrs. Shelby reported having blood mixed with her stool for several years and bright red blood on the tissue when she wiped. She is not taking any anticoagulants other than ASA 81 mg daily. She did indicate that she had some left-sided abdominal pain, which was relieved with bowel movements. She has a family history of several cancers and no history of personal history. She had had a myocardial infarction 12 years ago. This was managed by coronary artery bypass graft and she quit smoking at that time, had another myocardial infarction 2 years ago, and indicates that she currently does not smoke. When I examined her, the abdominal examination was normal. A proctosigmoidoscopy was normal with normal consistency of stool in the lumen. There was no excess mucus or blood present. At that time, there was no pathology to review and no PET scans and the most recent colonoscopy report was not available. These were requested and received a couple of days ago. I reviewed the reports from the review of the pathology that was submitted. These are all benign tubular adenomas. There is no colonoscopy report to indicate whether these polyps were completely excised or perhaps just biopsied. My impression is that, at the present time, there is no cause for concern regarding her colon. Because of the polyps and the family history with the rising CEA, which is not yet high considering her smoking history, I would recommend another colonoscopy in a year after the most recent. If I can be of further help, please let me know. Yours faithfully, Annette Diamond MD CC:Karolina Shelby [address] [place] [address] Date Dictated: 09/15/2018 Date Typed: ac 09/15/2018 JOB# [id number] PROGRESS Observed: 08/30/2018 Status: COMPLETED Source: [place] 10:57 AM [facility] REPOSITORY HNO ID: [id number] Author: Gerardo Lopes Service: (none) Author Type: Physician Type: Progress Notes Filed: 08/30/2018 4:44 PM Note Text: PERTINENT CARDIAC HISTORY ASHD - PCI RCA 2006, CABGx4 2006, PCI OM 12/2015 DM HTN HL ADHERENCE TO GUIDELINES ANTWON-I or ARB for HF with prior LVEF<40 (NQF 0081) - N/A ASA or Plavix for ASHD (NQF 0067) - met Beta gale for ASHD with prior SD or prior LVEF<40 (NQF 0070) - N/A Beta gale for HF with prior LVEF<40 (NQF 0083) - N/A ANTWON-I or ARB for ASHD with DM or prior LVEF<40 (NQF 0066) - N/A Statin therapy for ASHD or FHL or DM - met BMI documented and plan if >25 (NQF 0421) - lifestyle recommendation form Tobacco use screening and referral (NQF 0028) - lifestyle recommendation form Recommendation for whole food, plant based diet - lifestyle recommendation form CLINICAL IMPRESSION/PLAN: Karolina Shelby is doing well. She is advised to continue her current medication. She reports that labs have been followed in primary care. I have encouraged her to use nitroglycerin liberally for chest discomfort. I agree with her that her discomfort is likely related to emotional stress and probably not due to ischemia. I will see her in 7 months or as needed. Written and verbal health teaching given to patient, patient verbalizes understanding and agrees with treatment plan. DIAGNOSIS FOR VISIT: ASHD HISTORY OF PRESENT ILLNESS Karolina Shelby returns for follow-up of her coronary disease and hypertension. She reports occasional mild chest tightness lasting seconds. This tends to be related to emotional stress and not to exertion. She has not taken any nitroglycerin. Exercise tolerance has been stable. She's been under a lot of emotional stress. She was found to have a small mass on her colon. She reports that her CEA is gradually increasing. She's had no orthopnea or edema. She denies syncope. She's had no palpitations, TIAs, amaurosis or claudication ALLERGIES: ALLERGIES Allergen Reactions - Penicillins Hives - Actos [Pioglitazone* Other: See Comments muscle spasms - Adhesive Tape (Ashlee* Rash Skin comes off with tape Use paper tape - Codeine GI Upset Can take small amounts - Cortisone loses nerve sensation - Darvocet A500 [Prop* Hives - Effexor [Venlafaxin* Shortness of Breath - Januvia [Sitaglipti* Other: See Comments muscle spasms - Lipitor [Atorvastat* Other: See Comments abdominal cramping - Oxycontin [Oxycodon* Other: See Comments headaches - Percocet [Oxycodone* GI Upset - Plavix [Clopidogrel* Diarrhea, Vomiting - Prozac [Fluoxetine * Other: See Comments low blood pressure - Seasonal Allergies Other: See Comments Itchy eyes, runny nose, sneezing - Steroids [Corticost* GI Upset deathly ill, joint pain - Sulfa (Sulfonamide * Hives yeast infections CURRENT OUTPATIENT MEDICATIONS: Omeprazole 40 mg capsule Take 40 mg by mouth once daily. linagliptin (TRADJENTA) 5 mg tab Take by mouth once daily. glimepiride (AMARYL) 1 mg tablet Take 1 mg by mouth daily with breakfast. escitalopram oxalate (LEXAPRO) 10 mg tablet Take 10 mg by mouth once daily. atorvastatin (LIPITOR) 40 mg tablet TAKE ONE TABLET BY MOUTH ONCE DAILY nitroglycerin sublingual (NITROQUICK) 0.4 mg SL tablet Dissolve 1 tablet under the tongue as needed. FOR CHEST PAIN. IF NO RELIEF CALL 911 aspirin, enteric coated (ECOTRIN LOW STRENGTH) 81 mg EC tablet Take 1 tablet by mouth once daily. sitaGLIPtin (JANUVIA) 25 mg tablet Take 25 mg by mouth once daily. esomeprazole mag trihydrate(NEXIUM 40 MG CAP) Take (1) once daily metFORMIN ER (GLUMETZA) 500 mg 24 hr tablet Take 500 mg by mouth twice daily with meals. oxyCODONE-acetaminophen (PERCOCET) 5-325 mg tablet Take 1 tablet by mouth twice daily as needed. PHYSICAL EXAMINATION: VITAL SIGNS: BP 116/66 Pulse 73 Ht 5' 4 (1.63m) Wt 151 lb 4.8 oz (68.6kg) BMI 25.96 kg/(m2). Chest: Clear to auscultation. Trachea is midline. Air entry is equal. Cardiac: Regular rhythm. S1 and S2 are normal. PMI is nondisplaced. There is a soft systolic ejection murmur. Carotids are brisk without bruits. JVP is less than 10 cm. Abdomen: Soft and nontender. There are no pulsatile masses or bruits. No liver enlargement. Bowel sounds are active. Extremities: No edema. Pulses are intact and symmetrical. Recent labs reviewed. Renal function is normal. LDL was 39. Electronically Signed: Gerardo Lopes MD August 30, 2018 10:58 AM CC: Tyrel Sy MD CNOV Observed: 08/30/2018 Status: COMPLETED Source: [place] 10:30 AM [facility] REPOSITORY Office Visit (CAWSTR) KAROLINA SHELBY ([id number]) 1955 F Date Time Provider Department 08/30/18 10:30 AM GERARDO LOPESWSTR During your visit today, we recorded the following information about you: Pulse Blood pressure Weight Height 73/minute 116/66 68.6 kg 1.626 m Gerardo Lopes MD 08/30/2018 4:44 PM Signed PERTINENT CARDIAC HISTORY ASHD - PCI RCA 2006, CABGx4 2006, PCI OM 12/2015 DM HTN HL ADHERENCE TO GUIDELINES ANTWON-I or ARB for HF with prior LVEF<40 (NQF 0081) - N/A ASA or Plavix for ASHD (NQF 0067) - met Beta agle for ASHD with prior SD or prior LVEF<40 (NQF 0070) - N/A Beta gale for HF with prior LVEF<40 (NQF 0083) - N/A ANTWON-I or ARB for ASHD with DM or prior LVEF<40 (NQF 0066) - N/A Statin therapy for ASHD or FHL or DM - met BMI documented and plan if >25 (NQF 0421) - lifestyle recommendation form Tobacco use screening and referral (NQF 0028) - lifestyle recommendation form Recommendation for whole food, plant based diet - lifestyle recommendation form CLINICAL IMPRESSION/PLAN: Karolina Shelby is doing well. She is advised to continue her current medication. She reports that labs have been followed in primary care. I have encouraged her to use nitroglycerin liberally for chest discomfort. I agree with her that her discomfort is likely related to emotional stress and probably not due to ischemia. I will see her in 7 months or as needed. Written and verbal health teaching given to patient, patient verbalizes understanding and agrees with treatment plan. DIAGNOSIS FOR VISIT: ASHD HISTORY OF PRESENT ILLNESS Karolina Shelby returns for follow-up of her coronary disease and hypertension. She reports occasional mild chest tightness lasting seconds. This tends to be related to emotional stress and not to exertion. She has not taken any nitroglycerin. Exercise tolerance has been stable. She's been under a lot of emotional stress. She was found to have a small mass on her colon. She reports that her CEA is gradually increasing. She's had no orthopnea or edema. She denies syncope. She's had no palpitations, TIAs, amaurosis or claudication ALLERGIES: ALLERGIES Allergen Reactions - Penicillins Hives - Actos [Pioglitazone* Other: See Comments muscle spasms - Adhesive Tape (Ashlee* Rash Skin comes off with tape Use paper tape - Codeine GI Upset Can take small amounts - Cortisone loses nerve sensation - Darvocet A500 [Prop* Hives - Effexor [Venlafaxin* Shortness of Breath - Januvia [Sitaglipti* Other: See Comments muscle spasms - Lipitor [Atorvastat* Other: See Comments abdominal cramping - Oxycontin [Oxycodon* Other: See Comments headaches - Percocet [Oxycodone* GI Upset - Plavix [Clopidogrel* Diarrhea, Vomiting - Prozac [Fluoxetine * Other: See Comments low blood pressure - Seasonal Allergies Other: See Comments Itchy eyes, runny nose, sneezing - Steroids [Corticost* GI Upset deathly ill, joint pain - Sulfa (Sulfonamide * Hives yeast infections CURRENT OUTPATIENT MEDICATIONS: Omeprazole 40 mg capsule Take 40 mg by mouth once daily. linagliptin (TRADJENTA) 5 mg tab Take by mouth once daily. glimepiride (AMARYL) 1 mg tablet Take 1 mg by mouth daily with breakfast. escitalopram oxalate (LEXAPRO) 10 mg tablet Take 10 mg by mouth once daily. atorvastatin (LIPITOR) 40 mg tablet TAKE ONE TABLET BY MOUTH ONCE DAILY nitroglycerin sublingual (NITROQUICK) 0.4 mg SL tablet Dissolve 1 tablet under the tongue as needed. FOR CHEST PAIN. IF NO RELIEF CALL 911 aspirin, enteric coated (ECOTRIN LOW STRENGTH) 81 mg EC tablet Take 1 tablet by mouth once daily. sitaGLIPtin (JANUVIA) 25 mg tablet Take 25 mg by mouth once daily. esomeprazole mag trihydrate(NEXIUM 40 MG CAP) Take (1) once daily metFORMIN ER (GLUMETZA) 500 mg 24 hr tablet Take 500 mg by mouth twice daily with meals. oxyCODONE-acetaminophen (PERCOCET) 5-325 mg tablet Take 1 tablet by mouth twice daily as needed. PHYSICAL EXAMINATION: VITAL SIGNS: BP 116/66 Pulse 73 Ht 5' 4 (1.63m) Wt 151 lb 4.8 oz (68.6kg) BMI 25.96 kg/(m2). Chest: Clear to auscultation. Trachea is midline. Air entry is equal. Cardiac: Regular rhythm. S1 and S2 are normal. PMI is nondisplaced. There is a soft systolic ejection murmur. Carotids are brisk without bruits. JVP is less than 10 cm. Abdomen: Soft and nontender. There are no pulsatile masses or bruits. No liver enlargement. Bowel sounds are active. Extremities: No edema. Pulses are intact and symmetrical. Recent labs reviewed. Renal function is normal. LDL was 39. Electronically Signed: Gerardo Lopes MD August 30, 2018 10:58 AM CC: MD Gerardo Ayon MD 08/30/2018 10:58 AM Signed LIFESTYLE CHANGE A healthy lifestyle is the most important component of your overall treatment plan. Please give serious thought to the following areas and commit to making intermediate changes. EAT A WHOLE FOOD, PLANT BASED DIET The nutrition your body gets is more important than the medicine you take. What matters most is the overall way you eat. We encourage you to minimize the use of animal products (which include dairy and all meats except fatty fish) and use whole, unprocessed plant foods to provide your protein, vitamins and other nutrients. We have a lot of information to share with you on this topic. This is not a diet. It is a way of life that you will keep with you. EXERCISE REGULARLY It is not important to spend hours in the gym, lifting weights and perspiring heavily. A total of 2-3 hours per week of aerobic (causing you to be moderately short of breath) exercise is sufficient to improve your health. Talk to us before you begin a new exercise program, if you have heart disease or experience shortness of breath or chest pain. REDUCE STRESS Chronic emotional and physical stress leads to disease. Ways of reducing stress include meditation, visualization, prayer, yoga and other forms of relaxation therapy. Consistency is the martinez. Find a technique that works for you and do it every day. CULTIVATE RELATIONSHIPS Loneliness and isolation have a major negative impact on health. Seek out others who can love, care for and nurture you. Avoid hurtful relationships. MAINTAIN IDEAL BODY WEIGHT The best way to do this is to do all the things above. Our bodies naturally find the right weight if we keep moving and feed ourselves the right food. If your BMI is greater than 25, we strongly recommend a referral to a weight management program. Please speak to us or your family physician about available programs. AVOID NICOTINE IN ALL FORMS This includes all tobacco products, whether chewed, smoked, vaped, or rubbed on the skin. Smoking cessation programs, which can make use of tobacco substitutes, medications to suppress cravings and behavior management, are available. Please contact your family physician about programs in your area. Referring Provider: GERARDO LOPES [[id number]] Allergies As of Date: 08/30/2018 Noted Allergy Reaction PENICILLINS 01/18/2006 4 - Hives ACTOS (PIOGLITAZONE HCL) 05/11/2011 14 - Other: See Comments Comments: muscle spasms ADHESIVE TAPE (ROSINS) 04/12/2013 2 - Rash Comments: Skin comes off with tape Use paper tape CODEINE 04/12/2013 8 - GI Upset Comments: Can take small amounts CORTISONE 01/18/2006 Comments: loses nerve sensation DARVOCET A500 (PROPOXYPHENE N-ANTWON*01/18/2006 4 - Hives EFFEXOR (VENLAFAXINE ANALOGUES) 05/11/2011 12 - Shortness of Breath JANUVIA (SITAGLIPTIN) 05/11/2011 14 - Other: See Comments Comments: muscle spasms LIPITOR (ATORVASTATIN CALCIUM) 05/11/2011 14 - Other: See Comments Comments: abdominal cramping OXYCONTIN (OXYCODONE HCL) 05/11/2011 14 - Other: See Comments Comments: headaches PERCOCET (OXYCODONE-ACETAMINOPHEN)12/09/2012 8 - GI Upset PLAVIX (CLOPIDOGREL BISULFATE) 02/21/2016 6 - Diarrhea 11 - Vomiting PROZAC (FLUOXETINE HCL) 05/11/2011 14 - Other: See Comments Comments: low blood pressure SEASONAL ALLERGIES 03/20/2013 14 - Other: See Comments Comments: Itchy eyes, runny nose, sneezing STEROIDS (CORTICOSTEROIDS (GLUCOC*04/12/2013 8 - GI Upset Comments: deathly ill, joint pain SULFA (SULFONAMIDE ANTIBIOTICS) 05/11/2011 4 - Hives Comments: yeast infections Date Reviewed: 08/30/2018 Reviewed by: Shira Dominguez MA - Fully Assessed Reason for Visit: Established Patient [175] Cmt: ASHD Primary Visit Diagnosis:Hypertension, essential [I10] Other Visit Diagnosis:Chest pain, unspecified type [R07.9] Prescriptions as of 08/30/2018 Sig: OMEPRAZOLE 40 MG CAPSULE,KEV* Take 40 mg by mouth once anisa* LINAGLIPTIN 5 MG TABLET Take by mouth once daily. GLIMEPIRIDE 1 MG TABLET Take 1 mg by mouth daily with* ESCITALOPRAM 10 MG TABLET Take 10 mg by mouth once anisa* ATORVASTATIN 40 MG TABLET TAKE ONE TABLET BY MOUTH ONCE* NITROGLYCERIN 0.4 MG SUBLINGU* Dissolve 1 tablet under the t* ASPIRIN 81 MG TABLET,DELAYED * Take 1 tablet by mouth once d* SITAGLIPTIN 25 MG TABLET Take 25 mg by mouth once anisa* * NEXIUM 40 MG CAPSULE,DELAYED * Take (1) once daily METFORMIN ER 500 MG 24 HR TAB* Take 500 mg by mouth twice da* OXYCODONE-ACETAMINOPHEN 5 MG-* Take 1 tablet by mouth twice * Patient not taking: Reported on 08/30/2018 Problem List As Of Date 08/30/2018 Noted Resolved CHEST PAIN NOS [R07.9] INVALID FOR* ASCVD [I25.10] INVALID FOR* HYPERLIPIDEMIA NEC/NOS [E78.5] INVALID FOR* Nausea with Vomiting [R11.2] INVALID FOR* Unspecified Esophagitis [K20.9] INVALID FOR* Diaphragmatic Hernia without Mention of Obstruc*INVALID FOR* Acute Gastritis without Mention of Hemorrhage [*INVALID FOR* Diarrhea [R19.7] INVALID FOR* Benign neoplasm of colon [D12.6] INVALID FOR* Arthropathy, 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] INVALID FOR* Chronic pain disorder [G89.4] INVALID FOR* Diffuse myofascial pain syndrome [M79.18] INVALID FOR* Adhesive capsulitis of left shoulder [M75.02] INVALID FOR* Left rotator cuff tear [M75.102] INVALID FOR* Pain in joint, shoulder region [M25.519] INVALID FOR* Adhesive capsulitis of shoulder [M75.00] INVALID FOR* Arthritis of foot, 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 Please give serious thought to the following areas and commit to making oysterman changes. EAT A WHOLE FOOD, PLANT BASED DIET The nutrition your body gets is more important than the medicine you take. What matters most is the overall way you eat. We encourage you to minimize the use of animal products (which include dairy and all meats except fatty fish) and use whole, unprocessed plant foods to provide your protein, vitamins and other nutrients. We have a lot of information to share with you on this topic. This is not a diet. It is a way of life that you will keep with you. EXERCISE REGULARLY It is not important to spend hours in the gym, lifting weights and perspiring heavily. A total of 2-3 hours per week of aerobic (causing you to be moderately short of breath) exercise is sufficient to improve your health. Talk to us before you begin a new exercise program, if you have heart disease or experience shortness of breath or chest pain. REDUCE STRESS Chronic emotional and physical stress leads to disease. Ways of reducing stress include meditation, visualization, prayer, yoga and other forms of relaxation therapy. Consistency is the martinez. Find a technique that works for you and do it every day. CULTIVATE RELATIONSHIPS Loneliness and isolation have a major negative impact on health. Seek out others who can love, care for and nurture you. Avoid hurtful relationships. MAINTAIN IDEAL BODY WEIGHT The best way to do this is to do all the things above. Our bodies naturally find the right weight if we keep moving and feed ourselves the right food. If your BMI is greater than 25, we strongly recommend a referral to a weight management program. Please speak to us or your family physician about available programs. AVOID NICOTINE IN ALL FORMS This includes all tobacco products, whether chewed, smoked, vaped, or rubbed on the skin. Smoking cessation programs, which can make use of tobacco substitutes, medications to suppress cravings and behavior management, are available. Please contact your family physician about programs in your area. Encounter Status:Closed by GERARDO LOPES MD on 08/30/18 SURGICAL PATHOLOGY Observed: 08/29/2018 Status: F Source: [place] 12:00 AM [facility] REPOSITORY Specimen #: [id number]* Submitting Physician: ANNETTE DIAMOND ([id number]) FINAL DIAGNOSIS [facility], Department of Pathology, [place] 1. [id number], 01/03/2018 A. Distal transverse colon polyp, biopsy - Multiple fragments of tubular adenoma. B. Descending colon polyp, biopsy - Fragments of tubular adenoma. C. Distal descending colon polyp, biopsy - Tubular adenoma. D. Mid sigmoid mass, biopsy #1 - Multiple fragments of tubular adenoma. See comment. E. Mid sigmoid mass, biopsy #2 - Tubular adenoma. See comment. 2. [id number], 04/11/2018 A. Descending colon polyps, biopsy - Incipient tubular addenoma. B. Sigmoid colon polyp at 37 cm, biopsy - Fragments of tubular adenoma. COMMENT 1D & 1E. The biopsy fragments are superficial. There is no evidence of high-grade dysplasia or invasive carcinoma. IOG/kmr 08/30/18 Сергей Michelle M.D., Ph.D. (Electronic Signature) SPECIMEN SUBMITTED A: 5 SLIDES ([id number]) B: 2 SLIDES ([id number]) CLINICAL DATA None provided. Date of Report: 08/31/2018 Date of Procedure: 08/29/2018 Date of Receipt: 08/30/2018 Submitted by: ANNETTE DIAMOND ([id number]) Location: [facility] Diagnostic interpretation performed at [facility], [address] [place] [address]. HISTORY PHYSICAL Observed: 08/22/2018 Status: COMPLETED Source: [place] 9:12 AM [facility] [place] REPOSITORY HNO ID: [id number] Author: Annette Diamond Service: (none) Author Type: Physician Type: HANDP Filed: 08/22/2018 10:20 AM Note Text: New Patient Consult REASON FOR VISIT Karolina Shelby is a 62 year old female who is scheduled for a consult at the request of Dr. Tyrel Sy for Colon Polyps. My final recommendations will be communicated back to the requesting physician by the way of the shared medical record, fax, or via US Mail History of Present Illness: 62 year old female with a history of colonic polyp (sigmoid, adenoma) in 2010 who underwent a colonoscopy in December 2017 which showed a sigmoid polyp. It was unable to be removed by the labor relations supervisor, so she was scheduled for another colonoscopy one week later with a different labor relations supervisor. The polyp was removed at that time and a second sessile polyp was removed in the transverse colon. Per the patient, she believes the pathology was benign. She then underwent a follow up colonoscopy 3 months later (March 2018) which ?was normal per the patient. Around this same time her CEA level was checked and was mildly elevated (8), and was recently checked again and was rising (11). In April she saw an oncologist, who ordered a PET scan which was negative for any malignancy. She now presents for another opinion regarding the rising CEA. She reports having blood mixed with her stools for several years, and bright red blood when she wipes. She is not any blood thinners other than ASA 81mg daily. She has some left sided abdominal pain that is sometimes relieved with bowel movements. She has occassional constipation that resolves on its own. She has a family history of several cancers recently in her cousins (esophageal, colon, and another site that is unknown to her). She has no history of cancer. She believes her aunts have colitis (?IBD). She has a past medical history of an SD 12 years ago (s/p CABG x 4), quit smoking at that time, and had another SD 2 years ago (s/p stent placement). She currently does not smoke. FUNCTIONAL STATUS: Walk a block or two on level ground (2.75 METs) PAST MEDICAL HISTORY Diagnosis Date - Benign neoplasm of duodenum, jejunum, and ileum - CAD (coronary artery disease) - Cyst on right wrist - Diabetes (HCC) - Diarrhea - Hx of cardiac cath - Knee pain - SD (myocardial infarction) (HCC) - Nausea - Nausea with vomiting - OA (osteoarthritis) - Reflux - Rotator cuff (capsule) sprain - Rotator cuff tear, left - Stomach pain - Unspecified cardiovascular disease - Vomiting PAST SURGICAL HISTORY Procedure Laterality Date - CABG, ARTERIAL, FOUR+ 04/03 - COLONOSCOPY W/BX 06/11/11 - EGD W/O OR W/BRUSH/WASH 01/31/2010 EGD - KNEE SCOPE,DIAGNOSTIC 2004 Arthroscopy, knee, Rt. x3 - L'SCOPE DX W/WO BRUSHINGS/WASHINGS Laparoscopy x 3 - PAST SURGICAL HISTORY OF gallbladder - PAST SURGICAL HISTORY OF appendectomy - PAST SURGICAL HISTORY OF carpal tunnel bilateral - PAST SURGICAL HISTORY OF double hernia surgery - PAST SURGICAL HISTORY OF hysterectomy - PAST SURGICAL HISTORY OF 2016 Cardiac Stent - PAST SURGICAL HISTORY OF Open heart due to SD - ROTATOR CUFF REPAIR 04/26/2013 left shoulder w/ sub AC decompression FAMILY HISTORY Problem Relation Age of Onset - None Mother - Cancer Father bone - Diabetes Sister foot cyst - Colon Cancer Other Cousin - other (Ulcerative Colitis) Maternal Aunt Social History Substance Use Topics - Smoking status: Former Smoker Packs/day: 0.50 Years: 35.00 Types: Cigarettes Quit date: 03/01/2007 - Smokeless tobacco: Never Used - Alcohol use No The patient has the following: Problem List Noted Noted By Resolved Resolved By Presence of stent in left circumflex coronary artery 07/08/2017 Giuseppe Yang No Presence of stent in right coronary artery 07/08/2017 Giuseppe Yang No S/P CABG x 4 07/08/2017 Giuseppe Yang No Arthritis of right knee 09/11/2014 Eduar Mcgovern No Right knee pain 01/18/2014 Eduar Mcgovern No Arthritis of foot, right 08/15/2013 Eduar Mcgovern No Pain in joint, shoulder region 05/30/2013 Mariaelena (Pt) Bullach No Adhesive capsulitis of shoulder 05/30/2013 Mariaelena (Pt) Bullach No Left rotator cuff tear 03/20/2013 Eduar Mcgovern No Adhesive capsulitis of left shoulder 12/21/2012 Suze (Pt)(Hist) O Jong No Arthropathy, multiple sites 12/09/2012 Gamaliel Thomas No Chronic pain disorder 12/09/2012 Gamaliel Thomas No Diffuse myofascial pain syndrome 12/09/2012 Gamaliel Thomas No Diarrhea 06/11/2011 Maday (Rn) HOSSEIN Lara No Benign neoplasm of colon 06/11/2011 Maday (Rn) HOSSEIN Lara No Nausea with vomiting 01/31/2010 Negar Garcia (Hossein) HOSSEIN Moore No Esophagitis, unspecified 01/31/2010 Negar Garcia (Hossein) HOSSEIN [place] No Diaphragmatic hernia without mention of obstruction or gangrene 01/31/2010 Negar Garcia (Hossein) HOSSEIN [place] No Acute gastritis without mention of hemorrhage 01/31/2010 Negar Garcia (Hossein) HOSSEIN [place] No Chest pain, unspecified 03/11/2007 Surendra Tijerina MD No Unspecified cardiovascular disease 03/11/2007 Surendra Tijerina MD No Other and unspecified hyperlipidemia 03/11/2007 Surendra Tijerina MD No MEDICATIONS Current Outpatient Prescriptions: Omeprazole 40 mg capsule Take 40 mg by mouth once daily. Disp: Rfl: linagliptin (TRADJENTA) 5 mg tab Take by mouth once daily. Disp: Rfl: glimepiride (AMARYL) 1 mg tablet Take 1 mg by mouth daily with breakfast. Disp: Rfl: escitalopram oxalate (LEXAPRO) 10 mg tablet Take 10 mg by mouth once daily. Disp: Rfl: atorvastatin (LIPITOR) 40 mg tablet TAKE ONE TABLET BY MOUTH ONCE DAILY Disp: 90 tablet Rfl: 3 nitroglycerin sublingual (NITROQUICK) 0.4 mg SL tablet Dissolve 1 tablet under the tongue as needed. FOR CHEST PAIN. IF NO RELIEF CALL 911 Disp: 25 tablet Rfl: 3 aspirin, enteric coated (ECOTRIN LOW STRENGTH) 81 mg EC tablet Take 1 tablet by mouth once daily. Disp: Rfl: sitaGLIPtin (JANUVIA) 25 mg tablet Take 25 mg by mouth once daily. Disp: Rfl: metFORMIN ER (GLUMETZA) 500 mg 24 hr tablet Take 500 mg by mouth twice daily with meals. Disp: Rfl: oxyCODONE-acetaminophen (PERCOCET) 5-325 mg tablet Take 1 tablet by mouth twice daily as needed. Disp: 40 tablet Rfl: 0 esomeprazole mag trihydrate(NEXIUM 40 MG CAP) Take (1) once daily Disp: Rfl: 0 No current facility-administered medications for this visit. CURRENT ALLERGIES ALLERGIES Allergen Reactions - Penicillins Hives - Actos [Pioglitazone* Other: See Comments muscle spasms - Adhesive Tape (Ashlee* Rash Skin comes off with tape Use paper tape - Codeine GI Upset Can take small amounts - Cortisone loses nerve sensation - Darvocet A500 [Prop* Hives - Effexor [Venlafaxin* Shortness of Breath - Januvia [Sitaglipti* Other: See Comments muscle spasms - Lipitor [Atorvastat* Other: See Comments abdominal cramping - Oxycontin [Oxycodon* Other: See Comments headaches - Percocet [Oxycodone* GI Upset - Plavix [Clopidogrel* Diarrhea, Vomiting - Prozac [Fluoxetine * Other: See Comments low blood pressure - Seasonal Allergies Other: See Comments Itchy eyes, runny nose, sneezing - Steroids [Corticost* GI Upset deathly ill, joint pain - Sulfa (Sulfonamide * Hives yeast infections REVIEW OF SYSTEMS PAIN ASSESSMENT: Pain Pain Score: 3/10 Pain Location: Abdomen-Left Lower Quadrant Description: Aching;Dull Duration Amount of Time: 1 Duration Units: Weeks Frequency: Intermittent Intervention: Relaxation General: No weight loss, malaise or fevers. Neuro: Headaches Respiratory: No history of current cough or dyspnea, or pneumonia in the past 6 weeks. No history of respiratory/pulmonary symptoms or problems Cardiovascular: Positive for: SD- 2006 and 2016- hx open heart and cardiac stents GI: Positive for Abdominal pain, GI bleed < 30 days (date) intermittent with BM, History of polyps : No history of UTI in past 6 weeks. No history of renal failure. Not currently on or requiring dialysis. No history of symptoms or problems. 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 : N/A Endocrine: Diabetes Mellitus on oral agent Hematology: No history of bleeding or clotting disorder. Pt is not taking anti-coagulation or platelet medications. No history of hematological symptoms or problems. Oncology: No history of CA metastasis, chemo within 30 days, or radiotherapy within 90 days. Has not lost 10% of body wt in 6 months. No history of oncological symptoms or problems. Psych: Anxiety Musculoskeletal: arthritis Skin: Negative for lesions, rash and itching. Anemia: No PHYSICAL EXAMINATION BP 128/53 Pulse 80 Temp (Src) 98.1 (Oral) Ht 5' 4 (1.63m) Wt 149 lb (67.6kg) SpO2 98% BMI 25.56 kg/(m2). General Appearance: Well appearing, alert, in no acute distress, well-hydrated, well nourished. Skin: Skin color, texture, turgor normal, no suspicious rashes or lesions Head: Normocephalic, no masses, lesions, tenderness or abnormalities Oropharynx: Lips, mucosa, and tongue normal, teeth and gums normal, oropharynx normal Neck: Supple, no adenopathy; thyroid symmetric, normal size, no bruits Lungs: Unlabored on room air, Cough Heart: Not examined Extremities: No deformities, edema, skin discoloration, clubbing or cyanosis. Good capillary refill. Neuro: Deferred Abdomen: Normal abdominal exam Anorectal: The perineum is normal. Digital examination is normal. Anoscopy and rigid sigmoidoscopy to the proximal rectum is normal with normal consistency stool in the lumen. There was no evidence of excess mucus or blood. Machine Trimmer present: Yes, and relative. Diagnostic tests reviewed for today's visit: Assessment ASSESSMENT We have no pathology to review and no PET scans and the most recent colonoscopy report is not available. These have been requested. She has a CEA level which is a little elevated and high and a level performed 3 months earlier. She has a long history of cigarette smoking, which she does not do at the present time. RECOMMENDATION We have requested the images of the PET scan, microscope slides of the polyp removed from her colon and other blood tests. When these have been reviewed we will be in a position to make recommendations. She understands and will have these sent. Annette Diamond MD FACS DATE: 08/22/18 TIME: 9:12 AM TRACEY Observed: 08/22/2018 Status: COMPLETED Source: [place] 8:40 AM [facility] REPOSITORY Office Visit ([place]) KAROLINA SHELBY ([id number]) 1955 F Date Time Provider Department 08/22/18 8:40 AM ANNETTE DIAMOND During your visit today, we recorded the following information about you: Temperature Pulse Blood pressure Weight 98.1 degrees 80/minute 128/53 67.6 kg Height 1.626 m Annette Diamond MD FACS 08/22/2018 10:20 AM Signed New Patient Consult REASON FOR VISIT Karolina Shelby is a 62 year old female who is scheduled for a consult at the request of Dr. Tyrel Sy for Colon Polyps. My final recommendations will be communicated back to the requesting physician by the way of the shared medical record, fax, or via US Mail History of Present Illness: 62 year old female with a history of colonic polyp (sigmoid, adenoma) in 2010 who underwent a colonoscopy in December 2017 which showed a sigmoid polyp. It was unable to be removed by the labor relations supervisor, so she was scheduled for another colonoscopy one week later with a different labor relations supervisor. The polyp was removed at that time and a second sessile polyp was removed in the transverse colon. Per the patient, she believes the pathology was benign. She then underwent a follow up colonoscopy 3 months later (March 2018) which ?was normal per the patient. Around this same time her CEA level was checked and was mildly elevated (8), and was recently checked again and was rising (11). In April she saw an oncologist, who ordered a PET scan which was negative for any malignancy. She now presents for another opinion regarding the rising CEA. She reports having blood mixed with her stools for several years, and bright red blood when she wipes. She is not any blood thinners other than ASA 81mg daily. She has some left sided abdominal pain that is sometimes relieved with bowel movements. She has occassional constipation that resolves on its own. She has a family history of several cancers recently in her cousins (esophageal, colon, and another site that is unknown to her). She has no history of cancer. She believes her aunts have colitis (?IBD). She has a past medical history of an SD 12 years ago (s/p CABG x 4), quit smoking at that time, and had another SD 2 years ago (s/p stent placement). She currently does not smoke. FUNCTIONAL STATUS: Walk a block or two on level ground (2.75 METs) PAST MEDICAL HISTORY Diagnosis Date - Benign neoplasm of duodenum, jejunum, and ileum - CAD (coronary artery disease) - Cyst on right wrist - Diabetes (HCC) - Diarrhea - Hx of cardiac cath - Knee pain - SD (myocardial infarction) (HCC) - Nausea - Nausea with vomiting - OA (osteoarthritis) - Reflux - Rotator cuff (capsule) sprain - Rotator cuff tear, left - Stomach pain - Unspecified cardiovascular disease - Vomiting PAST SURGICAL HISTORY Procedure Laterality Date - CABG, ARTERIAL, FOUR+ 04/03 - COLONOSCOPY W/BX 06/11/11 - EGD W/O OR W/BRUSH/WASH 01/31/2010 EGD - KNEE SCOPE,DIAGNOSTIC 2004 Arthroscopy, knee, Rt. x3 - L'SCOPE DX W/WO BRUSHINGS/WASHINGS Laparoscopy x 3 - PAST SURGICAL HISTORY OF gallbladder - PAST SURGICAL HISTORY OF appendectomy - PAST SURGICAL HISTORY OF carpal tunnel bilateral - PAST SURGICAL HISTORY OF double hernia surgery - PAST SURGICAL HISTORY OF hysterectomy - PAST SURGICAL HISTORY OF 2016 Cardiac Stent - PAST SURGICAL HISTORY OF Open heart due to SD - ROTATOR CUFF REPAIR 04/26/2013 left shoulder w/ sub AC decompression FAMILY HISTORY Problem Relation Age of Onset - None Mother - Cancer Father bone - Diabetes Sister foot cyst - Colon Cancer Other Cousin - other (Ulcerative Colitis) Maternal Aunt Social History Substance Use Topics - Smoking status: Former Smoker Packs/day: 0.50 Years: 35.00 Types: Cigarettes Quit date: 03/01/2007 - Smokeless tobacco: Never Used - Alcohol use No The patient has the following: Problem List Noted Noted By Resolved Resolved By Presence of stent in left circumflex coronary artery 07/08/2017 Giuseppe Yang No Presence of stent in right coronary artery 07/08/2017 Giuseppe Yang No S/P CABG x 4 07/08/2017 Giuseppe Yang No Arthritis of right knee 09/11/2014 Eduarshazia Mcgovern No Right knee pain 01/18/2014 Eduar Mcgovern No Arthritis of foot, right 08/15/2013 Eduar Mcgovern No Pain in joint, shoulder region 05/30/2013 Mariaelena (Pt) Bullach No Adhesive capsulitis of shoulder 05/30/2013 Mariaelena (Pt) Bullach No Left rotator cuff tear 03/20/2013 Eduar Mcgovern No Adhesive capsulitis of left shoulder 12/21/2012 Suze (Pt)(Hist) O Jong No Arthropathy, multiple sites 12/09/2012 Gamaliel Thomas No Chronic pain disorder 12/09/2012 Gamaliel Thomas No Diffuse myofascial pain syndrome 12/09/2012 Gamaliel Thomas No Diarrhea 06/11/2011 Maday (Rn) HOSSEIN Lara No Benign neoplasm of colon 06/11/2011 Maday (Rn) HOSSEIN Lara No Nausea with vomiting 01/31/2010 Negar Garcia (Hossein) HOSSEIN Moore No Esophagitis, unspecified 01/31/2010 Negar Garcia (Hossein) HOSSEIN [place] No Diaphragmatic hernia without mention of obstruction or gangrene 01/31/2010 Negar Garcia (Hossein) HOSSEIN [place] No Acute gastritis without mention of hemorrhage 01/31/2010 Negar Garcia (Hossein) HOSSEIN [place] No Chest pain, unspecified 03/11/2007 Surendra Tijerina MD No Unspecified cardiovascular disease 03/11/2007 Surendra Tijerina MD No Other and unspecified hyperlipidemia 03/11/2007 Surendra Tijerina MD No MEDICATIONS Current Outpatient Prescriptions: Omeprazole 40 mg capsule Take 40 mg by mouth once daily. Disp: Rfl: linagliptin (TRADJENTA) 5 mg tab Take by mouth once daily. Disp: Rfl: glimepiride (AMARYL) 1 mg tablet Take 1 mg by mouth daily with breakfast. Disp: Rfl: escitalopram oxalate (LEXAPRO) 10 mg tablet Take 10 mg by mouth once daily. Disp: Rfl: atorvastatin (LIPITOR) 40 mg tablet TAKE ONE TABLET BY MOUTH ONCE DAILY Disp: 90 tablet Rfl: 3 nitroglycerin sublingual (NITROQUICK) 0.4 mg SL tablet Dissolve 1 tablet under the tongue as needed. FOR CHEST PAIN. IF NO RELIEF CALL 911 Disp: 25 tablet Rfl: 3 aspirin, enteric coated (ECOTRIN LOW STRENGTH) 81 mg EC tablet Take 1 tablet by mouth once daily. Disp: Rfl: sitaGLIPtin (JANUVIA) 25 mg tablet Take 25 mg by mouth once daily. Disp: Rfl: metFORMIN ER (GLUMETZA) 500 mg 24 hr tablet Take 500 mg by mouth twice daily with meals. Disp: Rfl: oxyCODONE-acetaminophen (PERCOCET) 5-325 mg tablet Take 1 tablet by mouth twice daily as needed. Disp: 40 tablet Rfl: 0 esomeprazole mag trihydrate(NEXIUM 40 MG CAP) Take (1) once daily Disp: Rfl: 0 No current facility-administered medications for this visit. CURRENT ALLERGIES ALLERGIES Allergen Reactions - Penicillins Hives - Actos [Pioglitazone* Other: See Comments muscle spasms - Adhesive Tape (Ashlee* Rash Skin comes off with tape Use paper tape - Codeine GI Upset Can take small amounts - Cortisone loses nerve sensation - Darvocet A500 [Prop* Hives - Effexor [Venlafaxin* Shortness of Breath - Januvia [Sitaglipti* Other: See Comments muscle spasms - Lipitor [Atorvastat* Other: See Comments abdominal cramping - Oxycontin [Oxycodon* Other: See Comments headaches - Percocet [Oxycodone* GI Upset - Plavix [Clopidogrel* Diarrhea, Vomiting - Prozac [Fluoxetine * Other: See Comments low blood pressure - Seasonal Allergies Other: See Comments Itchy eyes, runny nose, sneezing - Steroids [Corticost* GI Upset deathly ill, joint pain - Sulfa (Sulfonamide * Hives yeast infections REVIEW OF SYSTEMS PAIN ASSESSMENT: Pain Pain Score: 3/10 Pain Location: Abdomen-Left Lower Quadrant Description: Aching;Dull Duration Amount of Time: 1 Duration Units: Weeks Frequency: Intermittent Intervention: Relaxation General: No weight loss, malaise or fevers. Neuro: Headaches Respiratory: No history of current cough or dyspnea, or pneumonia in the past 6 weeks. No history of respiratory/pulmonary symptoms or problems Cardiovascular: Positive for: SD- 2006 and 2016- hx open heart and cardiac stents GI: Positive for Abdominal pain, GI bleed < 30 days (date) intermittent with BM, History of polyps : No history of UTI in past 6 weeks. No history of renal failure. Not currently on or requiring dialysis. No history of symptoms or problems. 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 : N/A Endocrine: Diabetes Mellitus on oral agent Hematology: No history of bleeding or clotting disorder. Pt is not taking anti-coagulation or platelet medications. No history of hematological symptoms or problems. Oncology: No history of CA metastasis, chemo within 30 days, or radiotherapy within 90 days. Has not lost 10% of body wt in 6 months. No history of oncological symptoms or problems. Psych: Anxiety Musculoskeletal: arthritis Skin: Negative for lesions, rash and itching. Anemia: No PHYSICAL EXAMINATION BP 128/53 Pulse 80 Temp (Src) 98.1 (Oral) Ht 5' 4 (1.63m) Wt 149 lb (67.6kg) SpO2 98% BMI 25.56 kg/(m2). General Appearance: Well appearing, alert, in no acute distress, well-hydrated, well nourished. Skin: Skin color, texture, turgor normal, no suspicious rashes or lesions Head: Normocephalic, no masses, lesions, tenderness or abnormalities Oropharynx: Lips, mucosa, and tongue normal, teeth and gums normal, oropharynx normal Neck: Supple, no adenopathy; thyroid symmetric, normal size, no bruits Lungs: Unlabored on room air, Cough Heart: Not examined Extremities: No deformities, edema, skin discoloration, clubbing or cyanosis. Good capillary refill. Neuro: Deferred Abdomen: Normal abdominal exam Anorectal: The perineum is normal. Digital examination is normal. Anoscopy and rigid sigmoidoscopy to the proximal rectum is normal with normal consistency stool in the lumen. There was no evidence of excess mucus or blood. Machine Trimmer present: Yes, and relative. Diagnostic tests reviewed for today's visit: Assessment ASSESSMENT We have no pathology to review and no PET scans and the most recent colonoscopy report is not available. These have been requested. She has a CEA level which is a little elevated and high and a level performed 3 months earlier. She has a long history of cigarette smoking, which she does not do at the present time. RECOMMENDATION We have requested the images of the PET scan, microscope slides of the polyp removed from her colon and other blood tests. When these have been reviewed we will be in a position to make recommendations. She understands and will have these sent. Annette Diamond MD FACS DATE: 08/22/18 TIME: 9:12 AM Referring Provider: TYREL SY [[id number]] Allergies As of Date: 08/22/2018 Noted Allergy Reaction PENICILLINS 01/18/2006 4 - Hives ACTOS (PIOGLITAZONE HCL) 05/11/2011 14 - Other: See Comments Comments: muscle spasms ADHESIVE TAPE (ROSINS) 04/12/2013 2 - Rash Comments: Skin comes off with tape Use paper tape CODEINE 04/12/2013 8 - GI Upset Comments: Can take small amounts CORTISONE 01/18/2006 Comments: loses nerve sensation DARVOCET A500 (PROPOXYPHENE N-ANTWON*01/18/2006 4 - Hives EFFEXOR (VENLAFAXINE ANALOGUES) 05/11/2011 12 - Shortness of Breath JANUVIA (SITAGLIPTIN) 05/11/2011 14 - Other: See Comments Comments: muscle spasms LIPITOR (ATORVASTATIN CALCIUM) 05/11/2011 14 - Other: See Comments Comments: abdominal cramping OXYCONTIN (OXYCODONE HCL) 05/11/2011 14 - Other: See Comments Comments: headaches PERCOCET (OXYCODONE-ACETAMINOPHEN)12/09/2012 8 - GI Upset PLAVIX (CLOPIDOGREL BISULFATE) 02/21/2016 6 - Diarrhea 11 - Vomiting PROZAC (FLUOXETINE HCL) 05/11/2011 14 - Other: See Comments Comments: low blood pressure SEASONAL ALLERGIES 03/20/2013 14 - Other: See Comments Comments: Itchy eyes, runny nose, sneezing STEROIDS (CORTICOSTEROIDS (GLUCOC*04/12/2013 8 - GI Upset Comments: deathly ill, joint pain SULFA (SULFONAMIDE ANTIBIOTICS) 05/11/2011 4 - Hives Comments: yeast infections Date Reviewed: 08/22/2018 Reviewed by: Lindsay Forbes) HOSSEIN Laurent - Fully Assessed Reason for Visit: Colon Polyps [Other] Primary Visit Diagnosis:History of colon polyps [Z86.010] Prescriptions as of 08/22/2018 Sig: OMEPRAZOLE 40 MG CAPSULE,KEV* Take 40 mg by mouth once anisa* LINAGLIPTIN 5 MG TABLET Take by mouth once daily. GLIMEPIRIDE 1 MG TABLET Take 1 mg by mouth daily with* ESCITALOPRAM 10 MG TABLET Take 10 mg by mouth once anisa* ATORVASTATIN 40 MG TABLET TAKE ONE TABLET BY MOUTH ONCE* NITROGLYCERIN 0.4 MG SUBLINGU* Dissolve 1 tablet under the t* ASPIRIN 81 MG TABLET,DELAYED * Take 1 tablet by mouth once d* SITAGLIPTIN 25 MG TABLET Take 25 mg by mouth once anisa* METFORMIN ER 500 MG 24 HR TAB* Take 500 mg by mouth twice da* OXYCODONE-ACETAMINOPHEN 5 MG-* Take 1 tablet by mouth twice * * NEXIUM 40 MG CAPSULE,DELAYED * Take (1) once daily Medication notes this encounter ASPIRIN 81 MG TABLET,DELAYED RELEASE >> Lindsay Laurent RN, RN 08/22/2018 9:09 AM >> LINDSAY LUARENT WedAug 22, 2018 9:09 AM Problem List As Of Date 08/22/2018 Noted Resolved CHEST PAIN NOS [R07.9] INVALID FOR* ASCVD [I25.10] INVALID FOR* HYPERLIPIDEMIA NEC/NOS [E78.5] INVALID FOR* Nausea with Vomiting [R11.2] INVALID FOR* Unspecified Esophagitis [K20.9] INVALID FOR* Diaphragmatic Hernia without Mention of Obstruc*INVALID FOR* Acute Gastritis without Mention of Hemorrhage [*INVALID FOR* Diarrhea [R19.7] INVALID FOR* Benign neoplasm of colon [D12.6] INVALID FOR* Arthropathy, 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] INVALID FOR* Chronic pain disorder [G89.4] INVALID FOR* Diffuse myofascial pain syndrome [M79.1] INVALID FOR* Adhesive capsulitis of left shoulder [M75.02] INVALID FOR* Left rotator cuff tear [M75.102] INVALID FOR* Pain in joint, shoulder region [M25.519] INVALID FOR* Adhesive capsulitis of shoulder [M75.00] INVALID FOR* Arthritis of foot, right [M19.071] INVALID FOR* Right knee pain [M25.561] INVALID FOR* Arthritis of right knee [M17.11] INVALID FOR* Presence of stent in left circumflex coronary a*INVALID FOR* Presence of stent in right coronary artery [Z95*INVALID FOR* S/P CABG x 4 [Z95.1] INVALID FOR* Encounter Status:Closed by ANNETTE DIAMOND MD, FACS on 08/22/18 CNCO Observed: 08/22/2018 Status: COMPLETED Source: [place] 12:00 AM [facility] REPOSITORY HNO ID: [id number] Author: Annette Diamond Service: Colorectal Author Type: Physician Type: Letter Filed: 11/03/2018 2:54 PM Note Text: September 08, 2018 Tyrel Sy M.D. [address], [place] [address] NAME: Karolina Shelby [facility] NO.: [id number] DATE OF SERVICE: 08/22/[address] Sy: I saw your patient, Mrs. Shelby, on August 22, 2018. Mrs. Shelby is a 62-year-old woman who had a history of colonic polyps. She had polyps removed from her sigmoid colon in 2010 and subsequently underwent colonoscopy in December 2017, which showed another sigmoid colon polyp. This polyp was removed and a second sessile polyp removed in the transverse colon. She subsequently underwent a follow-up colonoscopy 3 months later, which was in March 2018 and was reported as normal by the patient. At that time, her CEA level was checked and was elevated to 8 and was more recently checked and was found to be 11. In April 2018, she reports a PET scan had been performed, which was reported as being negative for any evidence of malignancy. Mrs. Shelby was presenting for another opinion regarding the rising CEA. She reports having some blood mixed with her stools over the last several years, which is bright red and noticed on wiping. She is not taking any blood thinners other than mini aspirin. She does complain of some left-sided abdominal pain, which is relieved with bowel movements. She has occasional constipation that resolves on its own. She has a family history of several cancers noted recently in her cousins. She has no history of cancer but believes one of her aunts had colitis. Mrs. Shelby has a history of having had a myocardial infarction 12 years earlier, which was managed by 4 bypass grafts. She stopped smoking at that time and had another myocardial infarction 2 years later, which was managed with a stent. She currently does not smoke. When I examined Mrs. Shelby, she was in no distress. Her vital signs were normal. On examination of her abdomen, there was no abnormality. The perineum was normal. Digital examination was normal. I performed anoscopy and rigid sigmoidoscopy to the proximal rectum where it was normal with normal consistency stool in the lumen. There was no evidence of mucus or blood. I arranged for the pathology slides from her past procedures to be sent and enclosed a copy of the pathology report for your records. The images from the PET scan have not been received and currently not reviewed. We were happy to look at that, but it has been reported normal. With respect to the CEA level, there is no obvious cause for the elevation. I would repeat the CEA level, and if it continues to rise we may have further investigation. If I can be of further help, please let me know. Yours faithfully, ` Annette Diamond MD CC:Karolina Shelby [address] [place] [id number] Date Dictated: 09/08/2018 Date Typed: [facility] 09/09/2018 JOB# [id number] Enclosure: Copy of pathology report. CBC W/DIFF, AUTOMATED Collected: 08/10/2018 Status: F Source: [place] 11:18 AM [facility] REPOSITORY Order Comment: Order Date: 08/10/18 Order Info: [id number] - CBCD Order Info: [id number] - SED TYPE CODE TESTS RESULT OUT OF RANGE REFERENCE UNITS LAB L100.1000 4.4-11.0 K/mm3 Normal WBC 8.4 LAB L100.1200 4.2-5.4 M/mm3 Normal RBC 4.84 LAB L100.1300 12.0-15.0 g/dl Normal HGB 12.0 LAB L100.1400 37-47 % Normal HCT 39.5 LAB L100.1500 81-99 fL Normal MCV 81.6 LAB L100.1600 27.0-32.0 pg Low MCH 24.8 LAB L100.1700 32-36 g/gl Low MCHC 30.4 LAB L100.1810 11.6-14.6 % High RDW CV 16.3 LAB L100.1820 35.1-43.9 fl High RDW SD 48.8 LAB L100.1900 150-450 K/mm3 Normal PLT 290 LAB L100.2000 6.2-12.0 fl Normal MPV 9.4 LAB L100.2100 47-70 % Normal NEUT% 64.0 LAB L100.2200 19-41 % Normal LY% 27.7 LAB L100.2300 0-10 % Normal MONO% 5.6 LAB L100.2400 0-5 % Normal EO% 2.0 LAB L100.2500 0-1 % Normal BASO% 0.6 LAB L100.2550 0.0-0.9 % Normal IM GRAN % 0.100 Result Comment: IG% - Immature Granulocytes (promyelocytes, myelocytes and metamyelocytes) > 1% indicates that a LEFT SHIFT is Present. LAB L100.2620 2.0-7.7 X10 3/uL Normal Absolute Neut 5.4 LAB L100.2720 0.83-4.51 X10 3/ul Normal Absolute Lymph 2.33 Performed By: #### L100.0100, L101.9900, L503.0105, L506.1000, L500.4050, L500.4100, L501.9520, L503.6150 #### [facility] [address] [place], [address] #### L3100.2300 #### [facility] (refer to report for specific site) refer to report for address and phone number ERYTHROCYTE SED RATE Collected: 08/10/2018 Status: F Source: [place] 11:18 AM [facility] REPOSITORY Order Comment: Order Date: 08/10/18 Order Info: [id number] - CBCD Order Info: [id number] - SED TYPE CODE TESTS RESULT OUT OF RANGE REFERENCE UNITS LAB L102.0000 0-30 mm/hr High SED RATE 84 Performed By: #### L100.0100, L101.9900, L503.0105, L506.1000, L500.4050, L500.4100, L501.9520, L503.6150 #### [facility] [address] [place], [address] #### L3100.2300 #### [facility] (refer to report for specific site) refer to report for address and phone number VITAMIN B12 Collected: 08/10/2018 Status: F Source: [place] 11:18 AM [facility] REPOSITORY Order Comment: Order Date: 08/10/18 Order Info: [id number] - B12 Order Info: [id number] - VITD25 TYPE CODE TESTS RESULT OUT OF RANGE REFERENCE UNITS LAB L503.0105 211-911 pg/mL Normal Vitamin B12 565 Performed By: #### L100.0100, L101.9900, L503.0105, L506.1000, L500.4050, L500.4100, L501.9520, L503.6150 #### [facility] [address] [place], [place], [id number] #### L3100.2300 #### [facility] (refer to report for specific site) refer to report for address and phone number VITAMIN D,25 HYDROXY Collected: 08/10/2018 Status: F Source: [place] 11:18 AM [facility] REPOSITORY Order Comment: Order Date: 08/10/18 Order Info: [id number] - B12 Order Info: [id number] - VITD25 TYPE CODE TESTS RESULT OUT OF REFERENCE UNITS RANGE LAB L506.1000 29.95-100.01 ng/mL Low Vitamin D 29.2 25-OH Result Comment: Vitamin D 25(OH) Status Range Deficiency <20 ng/mL (50nmol/L) Insuffciency 20 - 30 ng/mL (50 - 75 nmol/L) Sufficiency 30 - 100 ng/mL (75 - 250 nmol/L) Toxicity >100 ng/mL (>250 nmol/L) Performed By: #### L100.0100, L101.9900, L503.0105, L506.1000, L500.4050, L500.4100, L501.9520, L503.6150 #### [facility] [address] [place], [place], [id number] #### L3100.2300 #### [facility] (refer to report for specific site) refer to report for address and phone number COMPREHENSIVE METABOLIC Collected: 08/10/2018 Status: F Source: [place] [facility] 11:18 AM [facility] REPOSITORY Order Comment: Order Date: 08/10/18 Order Info: [id number] - CMP Order Info: [id number] - LIPID Order Info: [id number] - TSH Order Info: 2498-4 - FE TYPE CODE TESTS RESULT OUT OF RANGE REFERENCE UNITS LAB L501.0100 74-106 mg/dL High GLU 162 Result Comment: Fasting Glucose result greater than or equal to 126 mg/dL suggests DIABETES MELLITUS per A.D.A. criteria. Please note revised GLUCOSE reference range effective 2017. LAB L501.1000 7-18 mg/dL Normal BUN 13 LAB L501.1100 0.55-1.02 mg/dL Normal CREAT,SERUM 0.86 Result Comment: The validity of the calculated GFR AND GFRAA in patients over 70 years has not been determined. Clinical correlation is essential. LAB L501.1110 >60 mL/min Normal EST GFR 72 Result Comment: Non- GFR Calc LAB L501.1115 >60 mL/min Normal EST GFR - AA 87 Result Comment: GFR Calc LAB L501.1300 10-20 RATIO Normal BUN/CRE 15.2 LAB L501.1500 6.4-8.2 g/dL T Normal PROT 8.0 LAB L501.1800 3.2-5.0 g/dL Normal ALB 3.7 LAB L501.1950 2.2-4.2 g/dL High GLOB 4.3 LAB L501.2000 0.9-2.4 RATIO Normal A/G 0.9 LAB L501.2200 8.5-10.1 mg/dL CA Normal 9.3 LAB L501.4100 15-37 U/L Normal AST 17 LAB L501.4305 45-117 U/L Normal ALK P 116 LAB L501.4405 13-56 U/L Normal ALT 18 LAB L501.4600 0.20-1.00 mg/dL T Normal BILI 0.70 LAB L501.5300 136-145 mmol/L NA Normal 136 LAB L501.5600 3.5-5.1 mmol/L K Normal 4.3 LAB L501.5900 98-107 mmol/L CL Normal 101 LAB L501.6100 21.0-32.0 mmol/L Normal CO2 25.0 LAB L501.6200 5-15 Normal GAP 10 Performed By: #### L100.0100, L101.9900, L503.0105, L506.1000, L500.4050, L500.4100, L501.9520, L503.6150 #### [facility] [address] [place], [place], [id number] #### L3100.2300 #### [facility] (refer to report for specific site) refer to report for address and phone number LIPID PROFILE Collected: 08/10/2018 Status: F Source: [place] 11:18 AM [facility] REPOSITORY Order Comment: Order Date: 08/10/18 Order Info: [id number] - CMP Order Info: [id number] - LIPID Order Info: [id number] - TSH Order Info: 2498-4 - FE TYPE CODE TESTS RESULT OUT OF RANGE REFERENCE UNITS LAB L501.4900 200 mg/dL Normal CHOL 116 Result Comment: <200 mg/dL Desirable 200-240 mg/dL Borderline >240 mg/dL High Risk LAB L501.5000 mg/dL Normal TRIG 189 Result Comment: The drugs N-Acetylcysteine and Metamizole may falsely depress this assay. Serum Triglycerides Reference Interval Normal <150 mg/dL Borderline high 150 - 199 mg/dL High 200 - 499 mg/dL Very High > or = 500 mg/dL LAB L501.6400 mg/dL Low HDL 33 Result Comment: The drugs N-Acetylcysteine and Metamizole may falsely depress this assay. Reference Range HDL <40 mg/dL Low HDL Cholesterol HDL >or= 60 mg/dL High HDL Cholesterol LAB L501.6500 0-130 mg/dL Normal LDL 45 LAB L501.6600 5-40 mg/dL Normal VLDL 38 Performed By: #### L100.0100, L101.9900, L503.0105, L506.1000, L500.4050, L500.4100, L501.9520, L503.6150 #### [facility] [address] [place], [place], [id number] #### L3100.2300 #### [facility] (refer to report for specific site) refer to report for address and phone number THYROID STIM HORMONE Collected: 08/10/2018 Status: F Source: [place] (TSH) 11:18 AM [facility] REPOSITORY Order Comment: Order Date: 08/10/18 Order Info: [id number] - CMP Order Info: [id number] - LIPID Order Info: [id number] - TSH Order Info: 2498-4 - FE TYPE CODE TESTS RESULT OUT OF RANGE REFERENCE UNITS LAB L501.9520 0.358-3.74 uIU/mL Normal TSH 1.33 Performed By: #### L100.0100, L101.9900, L503.0105, L506.1000, L500.4050, L500.4100, L501.9520, L503.6150 #### [facility] [facility] [place], [address] #### L3100.2300 #### [facility] (refer to report for specific site) refer to report for address and phone number IRON Collected: 08/10/2018 Status: F Source: [place] 11:18 AM [facility] REPOSITORY Order Comment: Order Date: 08/10/18 Order Info: [id number] CMP Order Info: [id number] - LIPID Order Info: 3 - TSH Order Info: 2494 - FE TYPE CODE TESTS RESULT OUT OF RANGE REFERENCE UNITS LAB L503.6150 50-170 ug/dL Normal IRON 55 Performed By: #### L100.0100, L101.9900, L503.0105, L506.1000, L500.4050, L500.4100, L501.9520, L503.6150 #### [facility] [address] [place], [address] #### L3100.2300 #### [facility] (refer to report for specific site) refer to report for address and phone number CARCINOEMBRYONIC ANTIGEN Collected: 08/10/2018 Status: F Source: [place] 11:18 AM [facility] REPOSITORY Order Comment: Order Date: 08/10/18 Order Info: [id number] - CEA TYPE CODE TESTS RESULT OUT OF RANGE REFERENCE UNITS LAB L3100.2300 0.0-4.7 ng/mL High CEA 11.1 Result Comment: [place] ECLIA methodology Nonsmokers <3.9 Smokers <5.6 Performed at: - [facility] [address], [place], [place] [id number] Unemployment Insurance Director: Jose Le PhD, Phone: [phone] Performed By: #### L100.0100, L101.9900, L503.0105, L506.1000, L500.4050, L500.4100, L501.9520, L503.6150 #### [facility] [address] [place], [address] #### L3100.2300 #### [facility] (refer to report for specific site) refer to report for address and phone number ONCOLOGY VISIT REPORT Observed: 07/04/2018 Status: F Source: [place] 5:17 PM [facility] REPOSITORY [facility] [address] [place] [address] OFFICE VISIT Date of Service: 07/04/18 1511 MR#: [id number] Acct: [id number] Name: KAROLINA SHELBY Rep #: [id number] : 1955 From: Pablo West MD Age/Sex: 62/F Location: [facility] Status: Signed Subjective - Date of Service Date of Service:: 07/04/18 - Chief Complaint F/u for increased CEA. - History of Present Illness 62-year-old woman presented with rectal bleed, had endoscopy on 01/03/2018 which showed multiple polyps with a big sigmoid pedunculated mass with a CEA of 8.4. Pathology of biopsies showed tubular adenoma, that of the sigmoid mass also showed fragments of tubular adenoma. She was referred to Dr. Can at [facility], she had colonoscopy with polypectomy on January 10, 2018, Pathology showed Tubular adenoma. She had repeat CEA on February 07, 2018 and it had increased to 10.3. She was referred for further evaluation by Dr. Sy. She low dose CT in October 2017 which calcified mediastinal nodes and Left lower lobe nodule. CT of chest and pelvis done 02/24/2018 showed Stigmata of old granulomatous disease in chest. Had another colonoscopy March 2018 which showed more polyps. PET/CT on 05/16/2018 showed no viable cancer. Urine cytology was requested, comes for follow up. - Past Medical/Social History Social History Smoking Status Former smoker Review of Systems Constitutional:: Denies: Fever, Sweats, Weight loss, Appetite change, Chills Cardiovascular:: Denies: Chest pain, Palpitations, Dyspnea on exertion, Orthopnea, PND, Shortness of breath Respiratory: Denies: Cough, Hemoptysis, Shortness of Breath, Wheezing Gastrointestinal:: Reports: - - gets ocassional blood in the stool.. Denies: Abdominal pain, Nausea, Vomiting, Diarrhea, Constipation, Hematochezia Genitourinary: Denies: Dysuria, Hematuria, 15, Flank pain Musculoskeletal:: Denies: Back pain, Myalgia, Arthralgia Skin: Denies: Rash, Skin Changes, Wounds Neurological:: Denies: Headache, Dizziness, Visual changes, Tinnitus, Hearing loss Psychiatric: Denies: Anxiety, Depression, Homicidal Ideations, Suicidal Ideations Vital Signs Height 5 ft 4.5 in Weight: 68.492 kg Weight in Pounds 151.0 lbs Pulse Ox 97 - Physical Exam General: Alert, Oriented x3, No apparent distress Diagnostic Data: Diagnostic Data PET, CT Tumor Imaging 05/16/18 08:28 IMPRESSION: 1. NEGATIVE EXAMINATION. There is no definitive quantitative scintigraphic evidence of viable neoplasm. 2. Prominent glucose concentration observed in the descending thoracic aorta is commensurate with activated leukocytes associated with atherosclerotic plaque formation. (Jessica et al, Clinical Nuclear Medicine 29:93, 2004). 3. Prominent intestinal tract distribution of radiopharmaceutical noted in the abdominal-pelvic retroperitoneum and mesentery is most consistent with physiologic distribution of the radiopharmaceutical. (Tatidil et al, Radiology 224:783, 2002. Doanuj et al, Journal of Nuclear Medicine, 30:S276, 2003). Electronic Signature Ag Williamson D.O. Electronically Signed: Ag Williamson DO at 22:39 EDT Tel , Service support , Pathology Data: 06/02/2018 urine cytology reviewed, DIAGNOSIS CYTOLOGY Urine for cytology (cytospin): Negative for malignant cells. See comment. Assessment and Plan Increased CEA-PET/CT shows no occult cancer. Lung nodules-calcified granuloma. Urine cytology negative. History of multiple colonic polyps status post resection. Plan is to monitor CEA level. RTC 6 months with CEA/cmp/cbc. Primary Care Provider: Tyrel Sy Referring Provider: Tyrel Sy - Problem List (1) Lung nodule Status: Chronic (2) Abnormal laboratory test Status: Chronic (3) History of colonic polyps Status: Chronic Code Visit Office Visits / Consults: 85177 OV L3 Est 07/04/18 1717 <Electronically signed by Pablo West MD> Date Pablo West MD Cosigner Signature: Date (if applicable) CC: Tyrel Sy MD ONCOLOGY VISIT REPORT Observed: 06/02/2018 Status: F Source: [place] 3:46 PM [facility] REPOSITORY [facility] [address] [place] [id number] OFFICE VISIT Date of Service: 06/02/18 1532 MR#: [id number] Acct: [id number] Name: KAROLINA SHELBY Rep #: [id number] : 1955 From: Pablo West MD Age/Sex: 62/F Location: [facility] Status: Signed Subjective - Date of Service Date of Service:: 06/02/18 - Chief Complaint F/u for increased CEA and PET/CT results. - History of Present Illness 62-year-old woman presented with rectal bleed, had endoscopy on 01/03/2018 which showed multiple polyps with a big sigmoid pedunculated mass with a CEA of 8.4. Pathology of biopsies showed tubular adenoma, that of the sigmoid mass also showed fragments of tubular adenoma. She was referred to Dr. Can at [facility], she had colonoscopy with polypectomy on January 10, 2018, Pathology showed Tubular adenoma. She had repeat CEA on February 07, 2018 and it had increased to 10.3. She was referred for further evaluation by Dr. Sy. She low dose CT in October 2017 which calcified mediastinal nodes and Left lower lobe nodule. CT of chest and pelvis done 02/24/2018 showed Stigmata of old granulomatous disease in chest. Had another colonoscopy March 2018 which showed more polyps. She was very concerned about occult cancer so PET/CT was requested, comes for follow up. - Past Medical/Social History Social History Smoking Status Former smoker Review of Systems Constitutional:: Denies: Fever, Sweats, Weight loss, Appetite change, Chills Cardiovascular:: Denies: Chest pain, Palpitations, Dyspnea on exertion, Orthopnea, PND, Shortness of breath Respiratory: Denies: Cough, Hemoptysis, Shortness of Breath, Wheezing Gastrointestinal:: Denies: Abdominal pain, Nausea, Vomiting, Diarrhea, Constipation, Hematochezia Genitourinary: Denies: Dysuria, Hematuria, 15, Flank pain Musculoskeletal:: Denies: Back pain, Myalgia, Arthralgia Skin: Denies: Rash, Skin Changes, Wounds Neurological:: Denies: Headache, Dizziness, Visual changes, Tinnitus, Hearing loss Psychiatric: Denies: Anxiety, Depression, Homicidal Ideations, Suicidal Ideations Vital Signs Height 5 ft 4.5 in Weight: 69.4 kg Weight in Pounds 153.0 lbs Pulse Ox 97 - Physical Exam General: Alert, Oriented x3, No apparent distress Laboratory Data: Laboratory Tests Urine Color Yellow (Yellow) Urine Clarity Clear (Clear) Urine pH 7.0 (5.0 - 8.0) Ur Specific [place] 1.010 (1.002-1.030) Laboratory Tests Carcinoembryonic Ag 11.7 H Diagnostic Data: Diagnostic Data PET, CT Tumor Imaging 05/16/18 08:28 IMPRESSION: 1. NEGATIVE EXAMINATION. There is no definitive quantitative scintigraphic evidence of viable neoplasm. 2. Prominent glucose concentration observed in the descending thoracic aorta is commensurate with activated leukocytes associated with atherosclerotic plaque formation. (Jessica et al, Clinical Nuclear Medicine 29:93, 2004). 3. Prominent intestinal tract distribution of radiopharmaceutical noted in the abdominal-pelvic retroperitoneum and mesentery is most consistent with physiologic distribution of the radiopharmaceutical. (Tatidil et al, Radiology 224:783, 2002. Dobert et al, Journal of Nuclear Medicine, 30:S253, 2003). Electronic Signature Ag Williamson D.O. Electronically Signed: Ag Williamson DO at 22:39 EDT Tel , Service support , Assessment and Plan Increased CEA-PET/CT shows no occult cancer. Lung nodules-calcified granuloma. Worried about cancer with increased CEA. History of multiple colonic polyps status post resection. Plan is to check Urinalysis and Urine cytology since superficial bladder tumors maybe obscured. RTC 1 month. Primary Care Provider: Tyrel Sy Referring Provider: Tyrel Sy - Problem List (1) Lung nodule Status: Chronic (2) Abnormal laboratory test Status: Chronic (3) History of colonic polyps Status: Chronic Code Visit Office Visits / Consults: 54718 OV L4 Est 06/02/18 1546 <Electronically signed by Pablo West MD> Date Pablo West MD Cosigner Signature: Date (if applicable) CC: Tyrel Sy MD URINALYSIS, COMPLETE Collected: 06/02/2018 Status: F Source: [place] 1:35 PM [facility] REPOSITORY Order Comment: Reason for Laboratory Test . How was Urine Obtained? 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 DIPSTX 1.010 LAB L400.3550 5.0 - 8.0 pH UR Normal 7.0 LAB L400.3600 Negative mg/dl PROT Normal DIPSTX Negative LAB L400.3700 Normal mg/dl Normal UROBILI Normal LAB L400.3750 Negative High NITRITE UR Positive LAB L400.3780 Negative /ul High 10 OCCULT BLOOD-UR LAB L400.3800 Negative /ul High LEUK ESTERASE 100 LAB L400.4050 0-5 /hpf WBC Normal 0-5 SEEN LAB L400.4100 0-5 /hpf 0 Normal RBC-UA SEEN LAB L400.4150 5-10 /hpf SQUAM 0 Normal EPI SEEN LAB L400.4300 None Seen /hpf 3+ Normal BACTERIA LAB L400.4350 <or=2+ /hpf 0 Normal MUCUS, URINE SEEN Performed By: #### L400.0001 #### [facility] [address] [place], [address] CYTOLOGY, BODY FLUID / Collected: 06/02/2018 Status: F Source: [place] CSF 1:32 PM [facility] REPOSITORY Order Comment: Reason for Laboratory Test URINE Specimen Source: URINE TYPE CODE TESTS RESULT OUT OF RANGE REFERENCE UNITS LAB L350.1000 SEE Normal PATHOLOGY CYTOLOGY,BF REPORT /CSF Result Comment: Specimen submitted to Anatomical Pathology Department for testing. Performed By: #### L350.1000 #### [facility] [address] [place], [address] CYTOSPIN ON FLUID Observed: 06/02/2018 Status: F Source: [place] 12:00 AM [facility] REPOSITORY Patient: KAROLINA SHELBY : 1955 (62/F) Acct Num: [id number] Phys: Pablo West MD Unit Num: [id number] Loc: OMD Specimen: [id number] Received: 06/02/18 - 4617 Spec Type: CYSPIN FL TISSUES TISSUES: Urine COMMENT The specimen contains primarily squamous epithelial cells. There is abundant bacterial overgrowth in the background. Clinical correlation is suggested. CYTOLOGY GROSS Received is 40 ml of yellow clear fluid labeled with the patient's name and and designated per the requisition as urine. Submitted for cytology preparation. / 06/02/18 TC:5 CPT: 52616 CYTOLOGY STUDY Slides are reviewed. DIAGNOSIS CYTOLOGY Urine for cytology (cytospin): Negative for malignant cells. See comment. AM:curtis 06/03/18 HEADER OPERATION: Not noted PRE-OP DIAGNOSIS: Increased CEA TISSUE SUBMITTED: Urine for cytology Signed Frantz Figueroa 06/03/18 <signature on file> Performed By: #### PCYSPIN #### [facility] [address] [place], [address] PET/CT TUMOR BASE Observed: 05/16/2018 Status: F Source: [place] -THIGH INIT 8:28 AM [facility] REPOSITORY [facility] Imaging Services [address] [place] [address] PET/CT Tumor Base -Thigh Init MR#: [id number] Acct: [id number] Name: KAROLINA SHELBY Rep #: [id number] : 1955 F 62 From: Ag Williamson DO PCP: Tyrel Sy MD Status: REG RCR Study: PET/CT Tumor Base -Thigh Init Date of Exam: 05/16/18 Exam# [id number] Ordering Dr: Pablo West MD EXAMINATION: FDG PET CT INDICATIONS: A 62-year-old female with history of pulmonary nodularity. COMPARISON EXAMINATION: CT of the chest and pelvis reports dated 02/24/18. TECHNIQUE: Following the intravenous administration of 15 mCi of F-18 deoxyglucose, multiplanar image acquisitions of the neck, chest, abdomen and pelvis to level of mid thigh, obtained at one hour post radiopharmaceutical administration contemporaneously interpreted with the current CT of the neck, chest, abdomen and pelvis to level of mid thigh, dated 05/16/[address] of the chest and pelvis reports dated 02/24/18 reveal: FINDINGS: 1. There is no quantitative scintigraphic evidence of abnormal increased glucose metabolism on meticulous inspection of whole body acquisitions to include all three axis reconstructions. 2. Normal physiologic distribution of the radiopharmaceutical is apparent in the hepatic and splenic parenchyma, both renal units, bladder and visualized intestinal tract. There is uniform distribution of the radiopharmaceutical concentration compared on the cerebellar hemispheres and cerebral cortex. Diffuse intestinal tract activity is noted throughout all four quadrants of the abdominal-pelvic retroperitoneum, mesentery consistent with normal physiologic distribution of the radiopharmaceutical. Prominent glucose metabolism is defined in the descending thoracic aorta. Pertinent CT findings are as follows. CHEST: There are no parenchymal densities-nodules demonstrated in the right-left hemithorax demonstrating discernible increased glucose metabolism. A pleural-based calcified density noted in the left lower posterobasilar hemithorax is ametabolic. There is evidence of prior median sternotomy. Atherosclerotic calcification is defined in the thoracic aorta without evidence of dilatation, aneurysm formation. Coronary arterial calcification is observed. Calcified and noncalcified mediastinal, scattered bilateral axillary soft tissue densities are non-glucose avid. ABDOMEN AND PELVIS: Atherosclerotic calcification is defined in the abdominal aorta without evidence of dilatation, aneurysm formation. Abdominal-pelvic arterial calcification is observed. The uterus is surgically absent. Right-left inguinal soft tissue densities demonstrate no evidence of increased glucose metabolism. Calcified granuloma formation is noted within the splenic parenchyma. SKELETAL: Degenerative changes defined in the cervical, thoracic and lumbar spine demonstrate no evidence for glucose hypermetabolism. PET/PET/CT Tumor Base -Thigh Init IMPRESSION: 1. NEGATIVE EXAMINATION. There is no definitive quantitative scintigraphic evidence of viable neoplasm. 2. Prominent glucose concentration observed in the descending thoracic aorta is commensurate with activated leukocytes associated with atherosclerotic plaque formation. (Jessica et al, Clinical Nuclear Medicine 29:93, 2004). 3. Prominent intestinal tract distribution of radiopharmaceutical noted in the abdominal-pelvic retroperitoneum and mesentery is most consistent with physiologic distribution of the radiopharmaceutical. (Tatidil et al, Radiology 224:783, 2002. Doanuj et al, Journal of Nuclear Medicine, 30:S276, 2003). Electronic Signature Ag Williamson D.O. Electronically Signed: Ag Williamson DO at 22:39 EDT Tel , Service support , CC: Tyrel Sy MD; Pablo West MD Grief Counselor: Signed CBC W/DIFF, AUTOMATED Collected: 05/12/2018 Status: F Source: [place] 2:25 PM [facility] REPOSITORY TYPE CODE TESTS RESULT OUT OF RANGE REFERENCE UNITS LAB L100.1000 4.4-11.0 K/mm3 Normal WBC 9.8 LAB L100.1200 4.2-5.4 M/mm3 Normal RBC 5.07 LAB L100.1300 12.0-15.0 g/dl Normal HGB 12.6 LAB L100.1400 37-47 % Normal HCT 40.9 LAB L100.1500 81-99 fL Low MCV 80.7 LAB L100.1600 27.0-32.0 pg Low MCH 24.9 LAB L100.1700 32-36 g/gl Low MCHC 30.8 LAB L100.1810 11.6-14.6 % High RDW CV 15.9 LAB L100.1820 35.1-43.9 fl High RDW SD 46.4 LAB L100.1900 150-450 K/mm3 Normal PLT 300 LAB L100.2000 6.2-12.0 fl Normal MPV 9.1 LAB L100.2100 47-70 % Normal NEUT% 51.7 LAB L100.2200 19-41 % Normal LY% 39.1 LAB L100.2300 0-10 % Normal MONO% 6.3 LAB L100.2400 0-5 % Normal EO% 2.1 LAB L100.2500 0-1 % Normal BASO% 0.7 LAB L100.2550 0.0-0.9 % Normal IM GRAN % 0.100 Result Comment: IG% - Immature Granulocytes (promyelocytes, myelocytes and metamyelocytes) > 1% indicates that a LEFT SHIFT is Present. LAB L100.2620 2.0-7.7 X10 3/uL Normal Absolute Neut 5.1 LAB L100.2720 0.83-4.51 X10 3/ul Normal Absolute Lymph 3.84 Performed By: #### L100.0100 #### [facility] [address] [place], [place], [address] COMPREHENSIVE METABOLIC Collected: 05/12/2018 Status: F Source: [facility] 2:18 PM [facility] REPOSITORY Order Comment: Reason for Laboratory Test . TYPE CODE TESTS RESULT OUT OF RANGE REFERENCE UNITS LAB L501.0100 74-106 mg/dL High GLU 125 Result Comment: Fasting Glucose result from 100 to 125 mg/dL suggests IMPAIRED HOMEOSTASIS per A.D.A. criteria. Please note revised GLUCOSE reference range effective 2017. LAB L501.1000 7-18 mg/dL Normal BUN 11 LAB L501.1100 0.55-1.02 mg/dL Normal CREAT,SERUM 0.93 Result Comment: The validity of the calculated GFR AND GFRAA in patients over 70 years has not been determined. Clinical correlation is essential. LAB L501.1110 >60 mL/min Normal EST GFR 65 Result Comment: Non- GFR Calc LAB L501.1115 >60 mL/min Normal EST GFR - AA 79 Result Comment: GFR Calc LAB L501.1255 ml/min Normal Estimated CRCL 54.86 LAB L501.1300 10-20 RATIO Normal BUN/CRE 11.8 LAB L501.1500 6.4-8. g/dL High 2 T PROT 8.9 LAB L501.1800 3.2-5. g/dL Normal 0 ALB 4.1 LAB L501.1950 2.2-4. g/dL High 2 GLOB 4.8 LAB L501.2000 0.9-2. RATIO Normal 4 A/G 0.9 LAB L501.2200 8.5-10 mg/dL Normal .1 CA 9.5 LAB L501.4100 15-37 U/L Normal AST 16 LAB L501.4305 45-117 U/L High ALK P 124 LAB L501.4405 13-56 U/L Normal ALT 16 LAB L501.4600 0.20-1 mg/dL Normal .00 T BILI 0.70 LAB L501.5300 136-14 mmol/L Normal 5 NA 136 LAB L501.5600 3.5-5. mmol/L Normal 1 K 4.0 LAB L501.5900 98-107 mmol/L Normal CL 101 LAB L501.6100 21.0-3 mmol/L Normal 2.0 CO2 28.0 LAB L501.6200 5-15 Normal GAP 7 Performed By: #### L500.4050, L501.9520 #### [facility] [address] [place], [address] THYROID STIM HORMONE Collected: 05/12/2018 Status: F Source: [place] (TSH) 2:18 PM [facility] REPOSITORY Order Comment: Reason for Laboratory Test . TYPE CODE TESTS RESULT OUT OF RANGE REFERENCE UNITS LAB L501.9520 0.358-3.74 uIU/mL Normal TSH 1.16 Performed By: #### L500.4050, L501.9520 #### [facility] [address] [place], [address] CARCINOEMBRYONIC ANTIGEN Collected: 05/12/2018 Status: F Source: [place] 2:18 PM [facility] REPOSITORY Order Comment: Reason for Laboratory Test . TYPE CODE TESTS RESULT OUT OF RANGE REFERENCE UNITS LAB L3100.2300 0.0-4.7 ng/mL High CEA 11.7 Result Comment: [employer] ECLIA methodology Nonsmokers <3.9 Smokers <5.6 Performed at: [facility] [id number] Unemployment Insurance Director: Jose Le PhD, Phone: [phone] Performed By: #### L3100.2300 #### [facility] (refer to report for specific site) refer to report for address and phone number ONCOLOGY VISIT REPORT Observed: 05/12/2018 Status: F Source: [place] 2:11 PM [facility] REPOSITORY [facility] [address] [place] [address] OFFICE VISIT Date of Service: 05/12/18 1349 MR#: [id number] Acct: [id number] Name: KAROLINA SHELBY Rep #: [id number] : 1955 From: Pablo West MD Age/Sex: 62/F Location: D Status: Signed Subjective - Date of Service Date of Service:: 05/12/18 - Chief Complaint F/u for increased CEA. - History of Present Illness 62-year-old woman presented with rectal bleed, she had endoscopy on 01/03/2018 which showed multiple polyps with a big sigmoid pedunculated mass with a CEA of 8.4. Pathology of biopsies showed tubular adenoma, that of the sigmoid mass also showed fragments of tubular adenoma. She was referred to Dr. Can at [facility], she had colonoscopy with polypectomy on January 10, 2018, Pathology showed Tubular adenoma. She had repeat CEA on February 07, 2018 and it had increased to 10.3. She is now referred for further evaluation by Dr. Sy. She low dose CT in October 2017 which calcified mediastinal nodes and Left lower nodule. CT of chest and pelvis done 02/24/2018 showed Stigmata of old granulomatous disease. Comes for follow up, she is worried about cancer. Had another colonoscopy March 2018 which showed more polyps. - Past Medical/Social History Social History Smoking Status Former smoker Review of Systems Constitutional:: Denies: Fever, Sweats, Weight loss, Appetite change, Chills Cardiovascular:: Denies: Chest pain, Palpitations, Dyspnea on exertion, Orthopnea, PND, Shortness of breath Respiratory: Denies: Cough, Hemoptysis, Shortness of Breath, Wheezing Gastrointestinal:: Denies: Abdominal pain, Nausea, Vomiting, Diarrhea, Constipation, Hematochezia Genitourinary: Denies: Dysuria, Hematuria, 15, Flank pain Musculoskeletal:: Denies: Back pain, Myalgia, Arthralgia Skin: Denies: Rash, Skin Changes, Wounds Neurological:: Denies: Headache, Dizziness, Visual changes, Tinnitus, Hearing loss Psychiatric: Denies: Anxiety, Depression, Homicidal Ideations, Suicidal Ideations Vital Signs Height 5 ft 4.5 in Weight: 68.039 kg Weight in Pounds 150.0 lbs Pulse Ox 95 - Physical Exam General: Alert, Oriented x3, No apparent distress Assessment and Plan Increased CEA. Lung nodules. Worried about cancer with increased CEA. History of multiple colonic polyps status post resection. Plan is to repeat CEA. Obtain PET/CT. RTC 1 month with CEA. Primary Care Provider: Tyrel Sy Referring Provider: Tyrel Sy - Problem List (1) Lung nodule Status: Chronic (2) Abnormal laboratory test Status: Chronic (3) History of colonic polyps Status: Chronic Code Visit Office Visits / Consults: 73895 OV L3 Est 05/12/18 1411 <Electronically signed by Pablo West MD> Date Pablo West MD Cosigner Signature: Date (if applicable) CC: OPERATIVE REPORT Observed: 04/12/2018 Status: Shelia Source: [place] 11:57 AM [facility] REPOSITORY [facility] Medical Records Department [address] [place] [address] Operative Report 04/11/18 1027 MR#: [id number] Acct: [id number] Name: KAROLINA SHELBY Rep #: [id number] : 1955 62 From: Marlen Narvaez MD PCP: Tyrel Sy MD Status: [facility] Location: EN Report of Operation Date of Procedure: 04/11/18 Pre-Operative Diagnosis: History of large colon polyp removed piecemeal from sigmoid Post-Operative Diagnosis: Descending and sigmoid colon polyp Surgery/Procedure Performed:: Colonoscopy with snare polypectomy Type of Anesthesia:: MAC Anesthesiologist: Tommy Olivares Specimen's removed: 1. Descending colon polyp, 2. Sigmoid colon polyp Estimated Blood Loss (mL): Minimal Description of Procedure: Procedure: Colonoscopy After reviewing the risks benefits, the patient was deemed in satisfactory condition to undergo procedure. After obtaining informed consent, the scope was passed under direct visualization. Throughout the procedure, the patient's blood pressure pulse and position saturations were monitored continuously anesthesia. The colonoscope was introduced through the anus and advanced to the cecum, identified by the appendiceal orifice, IC valve and transillumination. The colonoscopy was performed without difficulty. The patient tolerated procedure well. Quality of bowel prep was good. Findings: The perianal and digital rectal exam were normal. Small sessile polyps are seen in the descending colon as well as in the sigmoid colon near the tattoo site removed with snare polypectomy at about 37 cm. Otherwise the colon (entire examined portion) appeared normal. Retroflexed view of the distal rectum and anal verge was normal and showed no anal or rectal abnormalities Impression: 1. Small sessile descending and sigmoid colon polyps 2. The distal rectal and anal verge were normal on retroflexed view. Recommendations: Await biopsies Repeat colonoscopy in 1-2 years for screening purposes, depending on biopsies 04/12/18 1157 <Electronically signed by Marlen Nravaez MD> Date Marlen Narvaez MD CC: Tyrel Sy MD; Marlen Narvaez MD Signed BEDSIDE GLUCOSE Collected: 04/11/2018 Status: F Source: [place] 8:36 AM [facility] REPOSITORY TYPE CODE TESTS RESULT OUT OF REFERENCE UNITS RANGE LAB L501.080 70-110 mg/dL High BEDSIDE GLU 197 Result Comment: MANAGEMENT OF PATIENT CARE PER NURSING PROTOCOL Performed By: #### L501.080 #### [facility] Point of Care [address] [place] [address] COLON BIOPSY (CHOOSE Observed: 04/11/2018 Status: F Source: [place] SITE) 12:00 AM [facility] REPOSITORY Patient: KAROLINA SHELBY : 1955 (62/F) Acct Num: [id number] Phys: Marlen Narvaez MD Unit Num: [id number] Loc: EN Specimen: [id number] Received: 04/11/18 - 1344 Spec Type: COLON BX TISSUES 1 TISSUES: A. Descending colon B. Sigmoid colon biopsy ADDENDUM Addendum Number 1 This addendum is added to incorporate an outside pathology consultation report. The case was examined at [facility] (#[id number]) and the following diagnosis was rendered. A. Descending colon polyps, biopsy: Incipient tubular adenoma. B. Sigmoid colon polyp at 27 cm, biopsy: Fragments of tubular adenoma. Please see complete above mentioned consultation report in EMR Addendum Signed Neo Scott 09/07/18 <signature on file> GROSS DESCRIPTION A - Received in fixative is one container labeled with the patient's name and designated descending colon polyp. The specimen consists of one irregular fragment of light welsh soft tissue that measures 0.4 x 0.4 x 0.1 cm. The specimen is totally submitted in one cassette. B - Received in fixative is one container labeled with the patient's name and designated sigmoid colon polyp. The specimen consists of multiple irregular fragments of light welsh soft tissue that in aggregate measure 1 x 0.3 x 0.1 cm. The specimen is totally submitted in one cassette. / RASHAAD:curtis 04/11/18 TC:1 CPT: 52409 x2 HEADER OPERATION: Colonoscopy PRE-OP DIAGNOSIS: History of colon polyps TISSUE SUBMITTED: A Descending colon polyp, B Sigmoid colon polyp at 37 cm MICROSCOPIC DESCRIPTION Slides are reviewed. MICROSCOPIC DIAGNOSIS A. Descending colon polyp, biopsy: Polypoid fragment of colonic mucosa with focal adenomatous changes. B. Sigmoid colon polyp at 37 cm, biopsy: Fragments of tubular adenoma. SJ:curtis 04/12/18 Signed Neo Scott 04/12/18 <signature on file> Performed By: #### PCOLBX #### [facility] [address] [place], [address] SURGERY VISIT REPORT Observed: 03/24/2018 Status: F Source: [place] 1:15 PM [facility] REPOSITORY [facility] [address] [place] [address] OFFICE VISIT Date of Service: 03/24/18 MR#: [id number] Acct: [id number] Name: KAROLINA SHELBY Rep #: [id number] : 1955 Provider: Marlen Narvaez MD Age/Sex: 62/F Location: [facility] Status: Signed Intake Vital Signs03/24/18 Height 5 ft 4 in 03/24/18 Weight: 146 lb Intake Visit Reasons: PER PATIENT NEEDS C-SCOPE IN MARCH/PER DR CAN Chief Complaint: F/u for CT results. Messenger Office Required: No Is patient in pain?: No Allergies codeine Allergy (Verified 03/24/18 12:57) Hives fluticasone propionate [From Flonase] Allergy (Verified 03/24/18 12:57) Hives mometasone furoate [From Nasonex] Allergy (Verified 03/24/18 12:57) Hives Penicillins Allergy (Verified 03/24/18 12:57) Hives sitagliptin phosphate [From Januvia] Allergy (Verified 03/24/18 12:57) Hives Sulfa (Sulfonamide Antibiotics) Allergy (Verified 03/24/18 12:57) Hives tramadol Allergy (Verified 03/24/18 12:57) Hives venlafaxine HCl [From Effexor] Allergy (Verified 03/24/18 12:57) Hives atorvastatin calcium [From Lipitor] Adverse Reaction (Verified 03/24/18 12:57) Other cortisone Adverse Reaction (Verified 03/24/18 12:57) Other desvenlafaxine succinate [From Pristiq] Adverse Reaction (Verified 03/24/18 12:57) Other fluoxetine HCl [From Prozac] Adverse Reaction (Verified 03/24/18 12:57) Vomiting gabapentin [From Neurontin] Adverse Reaction (Verified 03/24/18 12:57) Vomiting hydrochlorothiazide Adverse Reaction (Verified 03/24/18 12:57) Other hydrocodone bitartrate [From Vicodin] Adverse Reaction (Verified 03/24/18 12:57) Vomiting lisinopril Adverse Reaction (Verified 03/24/18 12:57) Other losartan [Losartan] Adverse Reaction (Verified 03/24/18 12:57) Other oxycodone HCl [From OxyContin] Adverse Reaction (Verified 03/24/18 12:57) Other pioglitazone HCl [From Actos] Adverse Reaction (Verified 03/24/18 12:57) Vomiting propoxyphene napsylate [From Darvocet-N] Adverse Reaction (Verified 03/24/18 12:57) Vomiting tizanidine Adverse Reaction (Verified 03/24/18 12:57) Other Medications Aspirin [Aspirin, Baby] 81 mg PO DAILY@0800 01/25/16 [History Confirmed 03/24/18] atorvastatin 40 mg tablet 40 mg PO QDAY 12/03/17 [History Confirmed 03/24/18] escitalopram 10 mg tablet 10 mg PO QDAY 12/03/17 [History Confirmed 03/24/18] linagliptin 5 mg tablet 5 mg PO QAM 12/03/17 [History Confirmed 03/24/18] Omeprazole Magnesium [Prilosec Otc] 40 mg PO DAILY 12/29/17 [History Confirmed 03/24/18] [facility] Medical History Tubular adenoma of colon (Resolved) CAD (coronary artery disease) (Acute) Diabetes (Acute) Diarrhea (Acute) Hyperlipemia (Acute) Nausea (Acute) Osteoarthritis (Acute) Reflux esophagitis (Acute) Ventral hernia (Acute) Surgical History Abnormal colonoscopy (Acute 01/10/18) History of appendectomy (Acute) History of arthroscopy of right knee (Acute) History of bilateral carpal tunnel release (Acute) History of coronary artery bypass graft (Acute) History of esophagogastroduodenoscopy (EGD) (Acute) History of hysterectomy (Acute) History of inguinal hernia repair, bilateral (Acute) History of laparoscopy (Acute) History of rotator cuff surgery (Acute) Hx of colonoscopy (Acute) History of cholecystectomy (Chronic) Status post laparoscopic cholecystectomy (Ruled-out) Family History Father Cancer bone Grandfather Cancer Grandmother Cancer Other Heart disease Social History Smoking Status: Former smoker alcohol intake: never HPI HPI HPI: KAROLINA SHELBY, is a 62 F who presents to the office today for repeat colonoscopy status post colonoscopy 01/10/2018 with piecemeal removal of a large sigmoid polyp which was a tubular adenoma. Patient states she is doing well denies any abdominal pain states that she does have daily bowel meds however of a medial harder to go and have some straining. She states she does eat a lot of fiber as well as drink plenty of water. Patient denies any blood in her stool Exam Const General: comfortable, no acute distress, cooperative GI Inspection: non-distended Palpation: soft, nontender, no guarding Assessment AND Plan Problems 1. Tubular adenoma of colon D12.6 Plan Patient have a large tubular adenoma removed from her sigmoid colon-piecemeal. Patient is due for repeat colonoscopy in 3 months from previous colonoscopy 01/10/2018. I have discussed the above with the patient. I have offered the patient colonoscopy for evaluation. I have explained the risks/benefits of the procedure and described the procedure. I have discussed the risks with the patient, including but not limited to: infection, bleeding, perforation of the GI tract requiring emergency surgery, inability to complete the procedure, injury to any internal organs, complications of anesthesia, etc. - the patient understands and agrees to proceed. I have answered all the patient's questions to the patient's satisfaction and the patient has no further questions. The patient has been given instructions for the colon cleansing preparation-1 day of clears, MiraLAX Dulcolax split. Marlen Narvaez M.D. Pager: [phone] [facility] [address] [place] [address], [address] [place] [address] Office: [phone] Orders Orders: Plan Detail Follow Up 1 (Will schedule colonoscopy for 04/11/18) Coding Level of Care Code Off vis,est,level 3 Diagnoses Tubular adenoma of colon D12.6 03/24/18 1315 <Electronically signed by Marlen Narvaez MD> Date Marlen Narvaez MD Cosigner Signature: Date (if applicable) CC: Tyrel Sy MD ONCOLOGY VISIT REPORT Observed: 03/10/2018 Status: F Source: [place] 3:12 PM [facility] REPOSITORY [facility] [address] [place] [id number] OFFICE VISIT Date of Service: 03/10/18 1345 MR#: [id number] Acct: [id number] Name: KAROLINA SHELBY Lissette Rep #: [id number] : 1955 From: Pablo West MD Age/Sex: 62/F Location: OMD Status: Signed Subjective - Date of Service Date of Service:: 03/10/18 - Chief Complaint F/u for CT results. - History of Present Illness 62-year-old woman presented with rectal bleed, she had endoscopy on 01/03/2018 which showed multiple polyps with a big sigmoid pedunculated mass with a CEA of 8.4. Pathology of biopsies showed tubular adenoma, that of the sigmoid mass also showed fragments of tubular adenoma. She was referred to Dr. Can at [facility], she had colonoscopy with polypectomy on January 10, 2018, Pathology showed Tubular adenoma. She had repeat CEA on February 07, 2018 and it had increased to 10.3. She is now referred for further evaluation by Dr. Sy. She low dose CT in October 2017 which calcified mediastinal nodes and Left lower nodule. She has CT of chest and pelvis done and comes for follow up. - Past Medical/Social History Social History Smoking Status Former smoker Review of Systems Constitutional:: Reports: Fatigue Cardiovascular:: Denies: Chest pain, Palpitations, Dyspnea on exertion, Orthopnea, PND, Shortness of breath Respiratory: Denies: Cough, Hemoptysis, Shortness of Breath, Wheezing Gastrointestinal:: Denies: Abdominal pain, Nausea, Vomiting, Diarrhea, Constipation, Hematochezia Genitourinary: Denies: Dysuria, Hematuria, 15, Flank pain Musculoskeletal:: Denies: Back pain, Myalgia, Arthralgia Skin: Denies: Rash, Skin Changes, Wounds Neurological:: Denies: Headache, Dizziness, Visual changes, Tinnitus, Hearing loss Psychiatric: Denies: Anxiety, Depression, Homicidal Ideations, Suicidal Ideations Vital Signs Height 5 ft 4.5 in Weight: 67.585 kg Weight in Pounds 149.0 lbs Pulse Ox 97 - Physical Exam General: Alert, Oriented x3, No apparent distress Diagnostic Data: 02/24/2018 CT chest reviewed negative for consolidation pulmonary nodules or effusion stigmata of old granulomatous disease, calcified mediastinal and hilar adenopathies. 02/24/2018 CT pelvis reviewed, no adenopathy or abnormalities, status post hysterectomy. Assessment and Plan Increased CEA may be aberrant. No evidence of malignancy. History of multiple colonic polyps status post resection. Plan is to do observation. RTC 2 months with CEA. Primary Care Provider: Tyrel Sy Referring Provider: Tyrel Sy - Problem List (1) Lung nodule Status: Chronic (2) Abnormal laboratory test Status: Chronic (3) History of colonic polyps Status: Chronic Code Visit Office Visits / Consults: 57720 OV L3 Est 03/10/18 1512 <Electronically signed by Pablo West MD> Date Pablo West MD [facility] Signature: Date (if applicable) CC: Tyrel Sy MD ONCOLOGY CONSULTATION Observed: 02/25/2018 Status: F Source: [place] 9:54 AM [facility] REPOSITORY [facility] [address] [place] [address] Oncology Consultation Date of Service: 02/24/18 1723 MR#: [id number] Acct: [id number] Name: KAROLINA SHELBY Rep #: [id number] : 1955 From: Pablo West MD Age/Sex: 62/F Location: OMD Status: Signed Consult Referring Physician: Dr. Pedro Sy Consult Results: Increased CEA, Lung nodule. Subjective Date of Service:: 02/24/18 Chief Complaint: Referred for evaluation of increased CEA. History of Present Illness: 62-year-old woman presented with rectal bleed, she had endoscopy on 01/03/2018 which showed multiple polyps with a big sigmoid pedunculated mass with a CEA of 8.4. Pathology of biopsies showed tubular adenoma, that of the sigmoid mass also showed fragments of tubular adenoma. She was referred to Dr. Can at [facility], she had colonoscopy with polypectomy on January 10, 2018 and was told it was negative. She had repeat CEA on February 07, 2018 and it had increased to 10.3. She is now referred for further evaluation by Dr. Sy. She reports that she had a CT scan of chest abdomen and pelvis which were negative in October 2017. 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: No Living Will: No Health History: Past Medical History (Last Reviewed 02/24/18 @ 09:51 by Navya Smith) Hyperlipemia (Acute) CAD (coronary artery disease) (Acute) Diabetes (Acute) Diarrhea (Acute) Nausea (Acute) Osteoarthritis (Acute) Reflux esophagitis (Acute) Ventral hernia (Acute) Past Surgical History (Last Reviewed 02/24/18 @ 09:51 by Navya Smith) History of appendectomy (Acute) History of arthroscopy of right knee (Acute) History of bilateral carpal tunnel release (Acute) History of coronary artery bypass graft (Acute) History of esophagogastroduodenoscopy (EGD) (Acute) History of hysterectomy (Acute) History of inguinal hernia repair, bilateral (Acute) History of laparoscopy (Acute) History of rotator cuff surgery (Acute) Hx of colonoscopy (Acute) History of cholecystectomy (Chronic) Status post laparoscopic cholecystectomy (Ruled-out) Family History (Last Updated 02/24/18 @ 09:53 by Navya Smith) Father Cancer Grandfather Cancer Grandmother Cancer Other Heart disease Allergies/Adverse Reactions: Allergy/AdvReac Type Severity Reaction Status Date / Time codeine Allergy Hives Verified 02/24/18 09:53 fluticasone propionate Allergy Hives Verified 02/24/18 09:53 Home Medications Medication Instructions Recorded Aspirin [Aspirin, Baby] 81 mg PO DAILY@0800 01/25/16 atorvastatin 40 mg tablet 40 mg PO QDAY 12/03/17 Review of Systems Constitutional:: Denies: Fever, Sweats, Weight loss, Appetite change, Chills Cardiovascular:: Denies: Chest pain, Palpitations, Dyspnea on exertion, Orthopnea, PND, Shortness of breath Respiratory: Denies: Cough, Hemoptysis, Shortness of Breath, Wheezing Gastrointestinal:: Denies: Abdominal pain, Nausea, Vomiting, Diarrhea, Constipation, Hematochezia Genitourinary: Denies: Dysuria, Hematuria, 15, Flank pain Musculoskeletal:: Denies: Back pain, Myalgia, Arthralgia Skin: Denies: Rash, Skin Changes, Wounds Neurological:: Denies: Headache, Dizziness, Visual changes, Tinnitus, Hearing loss Psychiatric: Denies: Anxiety, Depression, Homicidal Ideations, Suicidal Ideations Vital Signs Height 5 ft 4.5 in Weight: 67.585 kg Weight in Pounds 149.0 lbs Pulse Ox 96 - Physical Exam General: Alert, Oriented x3, No apparent distress HEENT: Atraumatic, PERRLA, EOMI, Normocephalic Oropharynx:: Dry mucosa Neck:: Supple, Trachea midline. Negative for: JVD, bilateral Cardiac:: Regular rate, Regular rhythm, Normal S1, Normal S2, - - + sternal scar. Negative for: Murmur Lungs: Clear to auscultation, Excusion symmetrical. Negative for: Rhonchi, Wheezes Abdomen:: Bowel sounds x 4, Soft, Non-tender, Non-distended. Negative for: Hepatosplenomegaly Extremities:: Negative for: Cyanosis, Edema Neurological: Neuro grossly intact Skin:: Negative for: Lesions, Rash, Petechiae, Ecchymosis Psychiatric:: Appropriate affect, Euthymic Lymphatics:: Negative for: Cervical lymphadenopathy, Supraclavicular lymphadenopathy, Axillary lymphadenopathy Breast:: - - No masses in R/L breast Diagnostic Data: 11/23/[address] reviewed, reported as negative but personal review of images shows left lung nodule. Assessment and Plan Increasing CEA with left lung nodule. History of multiple colonic polyps status post resection. Discussed differential diagnoses of increased CEA, because CEA is not specific for colon cancer alone can occur in other malignancies. Plan is to obtain CT chest with contrast to be followed by PET/CT if needed. Repeat CEA, obtain Pathology report from [facility]. RTC 2 weeks. Primary Care Provider: Tyrel Sy Referring Provider: Tyrel Sy - Problem List (1) Lung nodule Status: Chronic (2) Abnormal laboratory test Status: Chronic (3) History of colonic polyps Status: Chronic Code Visit Office Visits / Consults: 53206 OP Consult L5 02/25/18 0954 <Electronically signed by Pablo West MD> Date Pablo West MD Cosign Signature: Date (if applicable) CC: Tyrel Sy MD CREATININE FINGERSTICK Collected: 02/24/2018 Status: F Source: [place] 4:57 PM [facility] REPOSITORY TYPE CODE TESTS RESULT OUT OF RANGE REFERENCE UNITS LAB L9100.0210 0.55-1.02 mg/dL Normal CREATININE WB 0.9 LAB L9100.0220 >60 mL/min EGFR WB Normal > 60.0000 Performed By: #### L9100.0200 #### [facility] Point of Care [address] [place] [address] PELVIS WITH IV Observed: 02/24/2018 Status: F Source: [place] CONTRAST 4:52 PM [facility] REPOSITORY [facility] [address] [place] [address] Pelvis WITH IV Contrast MR#: [id number] Acct: [id number] Name: KAROLINA SHELBY Rep #: [id number] : 1955 F 62 From: Thais Wren MD PCP: Tyrel Sy MD Status: REG CLI Study: Pelvis WITH IV Contrast Date of Exam: 02/24/18 Exam# [id number] Ordering Dr: David Sy MD STUDY: CT PELVIS WITH CONTRAST REASON FOR EXAM: Female, 62 years old. Left lower quadrant pain with elevated CEA. Recent colonoscopy with mass removed from the colon. Prior history of smoking, appendectomy, cholecystectomy, hysterectomy, hernia repair, CABG, myocardial infarction and cardiac stents. RADIATION DOSAGE (If Supplied By Facility): CTDIvol = ( 11.58 ) mGy, DLP = ( 627.82 ) mGycm TECHNIQUE: Transaxial imaging of the pelvis was performed with oral contrast. 100 ml of Isovue 300 contrast was administered intravenously. Multiplanar coronal and sagittal images were reformatted. Individualized dose optimization techniques were used for this CT. COMPARISON: None. FINDINGS: Normal urinary bladder. Normal visualized small intestine. Normal visualized colon. There is no pelvic fluid. Status post hysterectomy with no pelvic mass or free fluid of the pelvis. Mild atherosclerotic plaque of the pelvic vessels. Minimal fatty umbilical hernia. Normal osseous structures. CT/Pelvis WITH IV Contrast IMPRESSION: No acute bowel related findings. Normal small bowel and colon of the pelvis. Negative for evidence of obstruction, mass density, perforation or inflammatory bowel changes. Status post hysterectomy with no pelvic mass or free fluid of the pelvis. Unremarkable nondistended urinary bladder and ureters. Minimal fatty umbilical hernia. Negative for pelvic adenopathy. Normal osseous structure of the pelvis. Electronically Signed: Thais Wren MD at 17:48 EDT , Service support , CC: Tyrel Sy MD Grief Counselor: Signed CHEST WITH CONTRAST Observed: 02/24/2018 Status: F Source: [place] 4:52 PM [facility] REPOSITORY [facility] Services [address] [place] [address] Chest WITH Contrast MR#: [id number] Acct: [id number] Name: KAROLINA SHELBY Rep #: [id number] : 1955 F 62 From: Thais Wren MD PCP: Tyrel Sy MD Status: REG CLI Study: Chest WITH Contrast Date of Exam: 02/24/18 Exam# [id number] Ordering Dr: David Sy MD STUDY: CT CHEST WITH CONTRAST REASON FOR EXAM: Female, 62 years old. Left lower quadrant pain and elevated CEA. Recent colonoscopy with mass removed from the colon. Prior history of CABG, myocardial infarction, cardiac stents and diabetes. RADIATION DOSAGE (If Supplied By Facility): CTDIvol = ( 11.58 ) mGy, DLP = ( 627.82 ) mGycm TECHNIQUE: Transaxial imaging was performed following intravenous administration of 100 ml of Isovue 300 contrast material. Multiplanar coronal and sagittal images were reformatted. Individualized dose optimization techniques were used for this CT. COMPARISON: Prior chest radiograph of January 25, 2016 FINDINGS: Minimal bullous emphysematous changes of the upper lobes. Benign left anterior paramediastinal calcification. Calcified granuloma of the posterior left lower lobe. Otherwise negative for major consolidation, focal atelectasis, pulmonary nodules or pleural effusion. Normal heart and pericardium. Coronary calcification and coronary stent artifacts. Calcified subcarinal lymph nodes. Calcified left hilar lymph node. Calcified middle mediastinal lymph nodes. Normal enhanced pulmonary arteries. There is atherosclerotic calcification of the aortic arch with tortuosity and elongation of the aortic arch and descending thoracic aorta. There are multi-level degenerative changes of the thoracic spine. Status post prior midline sternotomy. There is no demonstrated abnormality of the visualized upper abdomen. CT/Chest WITH Contrast IMPRESSION: Negative for consolidation, focal atelectasis, pulmonary nodules or pleural effusion. Mild emphysematous changes. Benign calcifications. Stigmata of old granulomatous disease. Coronary calcification and coronary stent artifacts. Calcified mediastinal and hilar lymph nodes. Electronically Signed: Thais Wren MD at 20:22 EDT , Service support , CC: Tyrel Sy MD Grief Counselor: Signed CARCINOEMBRYONIC ANTIGEN Collected: 02/24/2018 Status: F Source: [place] 11:13 AM [facility] REPOSITORY Order Comment: Reason for Laboratory Test . TYPE CODE TESTS RESULT OUT OF RANGE REFERENCE UNITS LAB L3100.2300 0.0-4.7 ng/mL High CEA 10.4 Result Comment: [place] ECLIA methodology Nonsmokers <3.9 Smokers <5.6 Performed at: - [facility] [id number] Unemployment Insurance Director: Jose Le PhD, Phone: [phone] Performed By: #### L3100.2300 #### [facility] (refer to report for specific site) refer to report for address and phone number SCREENING MAMM (CAD), Observed: 02/18/2018 Status: F Source: [place] BILAT 3:13 PM [facility] REPOSITORY [facility] Services [address] [place] [address] SCREENING MAMM (CAD), BILAT MR#: [id number] Acct: [id number] Name: KAROLINA SHELBY Rep #: [id number] : 1955 F 62 From: Jace Bocanegra MD PCP: Tyrel Sy MD Status: REG CLI Study: SCREENING MAMM (CAD), BILAT Date of Exam: 02/18/18 Exam# [id number] Ordering Dr: David Sy MD MAMMOGRAPHY - BILATERAL SCREENING 3-D ALDAIR SYNTHESIS REASON FOR EXAM: Female, 62 years old. Bilateral Screening 3-D tomosynthesis PERTINENT HISTORY: Cousins with breast cancer. TECHNIQUE: 2-D mammograms and 3-D Aldair synthesis of the breast (s) were performed. CAD was performed. COMPARISON: None. FINDINGS: The breast composition is composed of scattered fibroglandular density. Scattered benign calcifications are seen. No dense spiculated masses or suspicious microcalcifications are identified. No architectural distortion is identified. There is no skin thickening or retraction. There has been no significant change since the prior study. HPBI/SCREENING MAMM (CAD), BILAT IMPRESSION: No mammographic signs of malignancy. Routine yearly mammograms recommended. ASSESSMENT CATEGORY: BIRADS Category 2: Benign. A letter regarding these results will be sent to the patient by the facility within 30 days. FOLLOW UP RECOMMENDATION: Yearly follow up mammogram recommended. (A) Approximately 10% of breast cancers are not detected by mammography. A normal mammogram should not delay biopsy of a clinically suspicious abnormality. Electronically Signed: Doni Bocanegra MD at 9:25 EDT , Service support , CC: Tyrel Sy MD Grief Counselor: Signed CARCINOEMBRYONIC ANTIGEN Collected: 02/07/2018 Status: F Source: [place] 10:50 AM [facility] REPOSITORY Order Comment: Order Date: 02/07/18 Order Info: 2039-6 - CEA TYPE CODE TESTS RESULT OUT OF RANGE REFERENCE UNITS LAB L3100.2300 0.0-4.7 ng/mL High CEA 10.3 Result Comment: Carlitos ECLIA methodology Nonsmokers <3.9 Smokers <5.6 Performed at: - [facility] [address] [id number] Unemployment Insurance Director: Jose Le PhD, Phone: [phone] Performed By: #### L3100.2300 #### [facility] (refer to report for specific site) refer to report for address and phone number [facility] SURGICAL PATHOLOGY Observed: 01/10/2018 Status: F Source: [facility] 12:00 AM [facility] REPOSITORY Name KAROLINA SHELBY Pathologist: ALETHEA GARCIA M.D., PhD. Date of Procedure: 01/10/2018 Date Received: 01/10/2018 Date Reported 01/13/2018 Submitting Physician: JONATAN CAN MD Location: [facility] Copy To/Referring/Attending: TYREL SY MD Other External # [id number] FINAL DIAGNOSIS A. SIGMOID POLYP, POLYPECTOMY: --TUBULAR ADENOMA B. TRANSVERSE POLYP, POLYPECTOMY: --TUBULAR ADENOMA The gross and/or microscopic findings were reviewed in conjunction with pathology resident, John Curiel M.D. Electronically Signed Out By ALETHEA GARCIA M.D., PhD./WLI By the signature on this report, the individual or group listed as making the Final Interpretation/Diagnosis certifies that they have reviewed this case. Clinical History: Colon polyp Specimens Submitted As: A: SIGMOID POLYP B: TRANSVERSE POLYP Other Case Numbers [id number] Gross Description: A: Received in formalin, labeled with the patient's name and hospital number and 1-sigmoid polyp, are multiple polypoid segments of welsh, soft tissue ranging from 0.4 x 0.3 x 0.2 cm to 1.7 x 1.5 x 0.9 cm. The lines of resection are inked and the polyps are trisected. The specimen is entirely submitted in 7 cassettes. ALT B: Received in formalin, labeled with the patient's name and hospital number and 2-transverse colon polyp, is a fragment of welsh, soft tissue measuring 0.5 x 0.2 x 0.2 cm. The specimen is submitted in toto in one cassette. ALT Summary of Cassettes: Specimen Label Site A 1 #1 polyp line of resection 2 #1 polyp sides 3 #2 polyp line of resection 4 #2 polyp sides 5 #3 polyp line of resection 6 #3 polyp sides 7 remaining tissue alt/01/11/2018 Performed By: #### [facility] #### [facility] Surgical Pathology Department [address] [facility] [address] OPERATIVE REPORT Observed: 01/04/2018 Status: F Source: [place] 9:45 AM [facility] REPOSITORY [facility] Medical Records Department [address] [place] [address] Operative Report 01/03/18 1321 MR#: [id number] Acct: [id number] Name: KAROLINA SHELBY Rep #: [id number] : 1955 62 From: Marlen Narvaez MD PCP: Tyrel Sy MD Status: DEP [facility] Y Location: EN Report of Operation Date of Procedure: 01/03/18 Pre-Operative Diagnosis: Blood per rectum Post-Operative Diagnosis: Distal transverse colon, descending colon, distal descending colon polyps, mid sigmoid mass, mid sigmoid polyp Surgery/Procedure Performed:: Colonoscopy with cold forceps biopsy Type of Anesthesia:: MAC Anesthesiologist: Michael Moran Specimen's removed: 1. Distal transverse colon polyp, 2. Descending colon polyp, 3. Distal descending colon polyp, 4. Mid sigmoid colon mass, 5. Mid sigmoid polyp-bx Estimated Blood Loss (mL): minimal Description of Procedure: Procedure: Colonoscopy After reviewing the risks benefits, the patient was deemed in satisfactory condition to undergo procedure. After obtaining informed consent, the scope was passed under direct visualization. Throughout the procedure, the patient's blood pressure pulse and position saturations were monitored continuously anesthesia. The colonoscope was introduced through the anus and advanced to the cecum, identified by the appendiceal orifice, IC valve and transillumination. The colonoscopy was performed without difficulty. The patient tolerated procedure well. Quality of bowel prep was good. Findings: The perianal and digital rectal exam were normal. Small polyps were seen at the distal transverse colon, descending colon, distal descending colon removed completely with cold forceps biopsies. There is noted to be a large pedunculated mid sigmoid mass; however due to mobility of the mass as well as issues with insufflation and this area I was unable to snare the mass. I did get a couple biopsies from sigmoid colon mass. The proximal at about 37 cm, distal at about 35 cm and base areas were also injected with Kristin ink. Also noted to be sigmoid polyp more distal to the mass near the distal Kristin ink injection site, it was not completely removed due to insufflation issues. A biopsy was taken of the mid sigmoid polyp. Otherwise the colon (entire examined portion) appeared normal. Retroflexed view of the distal rectum and anal verge was normal and showed no anal or rectal abnormalities Impression: 1. Distal transverse, descending colon, distal descending colon polyps. Biopsied 2. Mid sigmoid pedunculated mass and adjacent mid sigmoid polyp. Biopsied and marked with Kristin ink proximal, distal and at the base of mass, adjacent polyp near distal injection site. 3. The distal rectal and anal verge were normal on retroflexed view. Recommendations: Await biopsies We will check CBC with differential, CMP, CEA. Will refer GI doctor see if they are able to remove sigmoid mass and adjacent polyp. Discussed patient that even if they were able to remove it depending on the histology she made need bowel resection verse surveillance - Complications none 01/04/18 0945 <Electronically signed by Marlen Narvaez MD> Date Marlen Narvaez MD CC: Tyrel Sy MD; Marlen Narvaez MD Signed CBC W/DIFF, AUTOMATED Collected: 01/03/2018 Status: F Source: [place] 9:22 AM [facility] REPOSITORY TYPE CODE TESTS RESULT OUT OF RANGE REFERENCE UNITS LAB L100.1000 4.4-11.0 K/mm3 Normal WBC 6.8 LAB L100.1200 4.2-5.4 M/mm3 Normal RBC 4.32 LAB L100.1300 12.0-15.0 g/dl Low HGB 11.0 LAB L100.1400 37-47 % Low HCT 35.8 LAB L100.1500 81-99 fL Normal MCV 82.9 LAB L100.1600 27.0-32.0 pg Low MCH 25.5 LAB L100.1700 32-36 g/gl Low MCHC 30.7 LAB L100.1810 11.6-14.6 % High RDW CV 15.8 LAB L100.1820 35.1-43.9 fl High RDW SD 48.3 LAB L100.1900 150-450 K/mm3 Normal PLT 206 LAB L100.2000 6.2-12.0 fl Normal MPV 9.0 LAB L100.2100 47-70 % Normal NEUT% 59.6 LAB L100.2200 19-41 % Normal LY% 32.4 LAB L100.2300 0-10 % Normal MONO% 4.9 LAB L100.2400 0-5 % Normal EO% 2.4 LAB L100.2500 0-1 % Normal BASO% 0.6 LAB L100.2550 0.0-0.9 % Normal IM GRAN % 0.100 Result Comment: IG% - Immature Granulocytes (promyelocytes, myelocytes and metamyelocytes) > 1% indicates that a LEFT SHIFT is Present. LAB L100.2620 2.0-7.7 X10 3/uL Normal Absolute Neut 4.1 LAB L100.2720 0.83-4.51 X10 3/ul Normal Absolute Lymph 2.20 Performed By: #### L100.0100 #### [facility] [address] [place], [address] COMPREHENSIVE METABOLIC Collected: 01/03/2018 Status: F Source: [facility] 9:22 AM [facility] REPOSITORY TYPE CODE TESTS RESULT OUT OF RANGE REFERENCE UNITS LAB L501.0100 74-106 mg/dL High GLU 165 Result Comment: Fasting Glucose result greater than or equal to 126 mg/dL suggests DIABETES MELLITUS per A.D.A. criteria. LAB L501.1000 7-18 mg/dL Normal BUN 8 LAB L501.1100 0.55-1.02 mg/dL Normal CREAT,SERUM 0.77 Result Comment: The validity of the calculated GFR AND GFRAA in patients over 70 years has not been determined. Clinical correlation is essential. LAB L501.1110 >60 mL/min Normal EST GFR 81 Result Comment: Non- GFR Calc LAB L501.1115 >60 mL/min Normal EST GFR - AA 98 Result Comment: GFR Calc LAB L501.1255 ml/min Normal Estimated CRCL 66.25 LAB L501.1300 10-20 RATIO Normal BUN/CRE 10.4 LAB L501.1500 6.4-8. g/dL Normal 2 T PROT 7.1 LAB L501.1800 3.2-5. g/dL Normal 0 ALB 3.2 LAB L501.1950 2.2-4. g/dL Normal 2 GLOB 3.9 LAB L501.2000 0.9-2. RATIO Low 4 A/G 0.8 LAB L501.2200 8.5-10 mg/dL Normal .1 CA 8.5 LAB L501.4100 15-37 U/L Normal AST 20 LAB L501.4305 45-117 U/L Normal ALK P 100 LAB L501.4405 13-56 U/L Normal ALT 20 Result Comment: Please note revised ALT reference range effective 2017. LAB L501.4600 0.20-1.00 mg/dL Normal T BILI 0.60 LAB L501.5300 136-145 mmol/L Normal NA 137 LAB L501.5600 3.5-5.1 mmol/L Normal K 3.5 LAB L501.5900 98-107 mmol/L Normal CL 103 LAB L501.6100 21.0-32.0 mmol/L Normal CO2 26.0 LAB L501.6200 5-15 Normal GAP 8 Performed By: #### L500.4050 #### [facility] [address] [place], [place], [id number] CARCINOEMBRYONIC ANTIGEN Collected: 01/03/2018 Status: F Source: [place] 9:22 AM [facility] REPOSITORY TYPE CODE TESTS RESULT OUT OF RANGE REFERENCE UNITS LAB L3100.2300 0.0-4.7 ng/mL High CEA 8.4 Result Comment: Carlitos ECLIA methodology Nonsmokers <3.9 Smokers <5.6 Performed at: - [facility] [id number] Unemployment Insurance Director: Jose Le PhD, Phone: [phone] Performed By: #### L3100.2300 #### [facility] (refer to report for specific site) refer to report for address and phone number COLON BIOPSY (CHOOSE Observed: 01/03/2018 Status: F Source: [facility]) 8:24 AM [facility] REPOSITORY Patient: KAROLINA SHELBY : 1955 (62/F) Acct Num: [id number] Phys: Solange ROWAN,Marlen Unit Num: [id number] Loc: EN Specimen: [id number] Received: 01/03/181518 Spec Type: COLON BX TISSUES 1 TISSUES: A. Transverse colon B. Descending colon C. Descending colon D. Sigmoid colon biopsy E. Sigmoid colon biopsy ADDENDUM Addendum Number 1 This addendum is added to incorporate an outside pathology consultation report. The case was examined at [facility] (#[id number]) and the following diagnosis was rendered. A. Distal transverse colon polyp, biopsy: Multiple fragments of tubular adenoma. B. Descending colon polyp, biopsy: Fragments of tubular adenoma. C. Distal descending colon polyp, biopsy: Tubular adenoma. D. Mid sigmoid mass, biopsy #1: Multiple fragments of tubular adenoma. E. Mid sigmoid mass, biopsy #2: Tubular adenoma. Please see complete above mentioned consultation report in EMR Addendum Signed [facility] 09/07/18 <signature on file> GROSS DESCRIPTION A - Received in fixative is one container labeled with the patient's name and designated transverse colon polyp biopsy. The specimen consists of multiple irregular fragments of light welsh soft tissue that in aggregate measure 0.5 x 0.5 x 0.1 cm. The specimen is totally submitted in one cassette. B - Received in fixative is one container labeled with the patient's name and designated descending colon polyp biopsy. The specimen consists of multiple irregular fragments of light welsh soft tissue that in aggregate measure 0.5 x 0.3 x 0.1 cm. The specimen is totally submitted in one cassette. C - Received in fixative is one container labeled with the patient's name and designated distal descending colon polyp biopsy. The specimen consists of two irregular fragments of light welsh soft tissue that in aggregate measure 0.4 x 0.3 x 0.1 cm. The specimen is totally submitted in one cassette. D - Received in fixative is one container labeled with the patient's name and designated mid sigmoid mass biopsy #1. The specimen consists of multiple irregular fragments of light welsh soft tissue that in aggregate measure 0.6 x 0.3 x 0.1 cm. The specimen is totally submitted in one cassette. E - Received in fixative is one container labeled with the patient's name and designated mid sigmoid mass biopsy #2. The specimen consists of one irregular fragment of light welsh soft tissue that measures 0.3 x 0.3 x 0.1 cm. The specimen is totally submitted in one cassette. / SJ:rg 01/04/18 TC:5 CPT: 87147 x5 HEADER OPERATION: Colonoscopy PRE-OP DIAGNOSIS: Rectal bleeding TISSUE SUBMITTED: A Distal transverse colon polyp biopsy, B Descending colon polyp biopsy, C Distal descending colon polyp biopsy, D Mid sigmoid mass biopsy #1, E - Mid sigmoid mass biopsy #2 MICROSCOPIC DESCRIPTION Slides are reviewed. MICROSCOPIC DIAGNOSIS A. Distal transverse colon polyp, biopsy: Fragments of tubular adenoma. B. Descending colon polyp, biopsy: Fragments of tubular adenoma. C. Distal descending colon polyp, biopsy: Tubular adenoma. D. Mid sigmoid mass, biopsy #1: Fragments of tubular adenoma. E. Mid sigmoid mass, biopsy #2: Tubular adenoma. AM:curtis 01/05/18 Signed Frant[facility] Henry 01/05/18 <signature on file> Performed By: #### PCOLBX #### [facility] [address] [place], [place], [address] BEDSIDE GLUCOSE Collected: 01/03/2018 Status: F Source: [place] 6:41 AM [facility] REPOSITORY TYPE CODE TESTS RESULT OUT OF REFERENCE UNITS RANGE LAB L501.080 70-110 mg/dL High BEDSIDE GLU 171 Result Comment: MANAGEMENT OF PATIENT CARE PER NURSING PROTOCOL Performed By: #### L501.080 #### [facility] Point of Care [address] [place], [place] [address] PROGRESS Observed: 12/30/2017 Status: COMPLETED Source: [place] 10:34 AM [facility] OTHER CAMPUS REPOSITORY HNO ID: [id number] Author: Gerardo Lopes Service: (none) Author Type: Physician Type: Progress Notes Filed: 12/30/2017 11:03 AM Note Text: PERTINENT CARDIAC HISTORY ASHD - PCI RCA 2006, CABGx4 2006, PCI OM 12/2015 DM HTN HL ADHERENCE TO GUIDELINES ANTWON-I or ARB for HF with prior LVEF<40 (NQF 0081) - N/A ASA or Plavix for ASHD (NQF 0067) - met Beta gale for ASHD with prior SD or prior LVEF<40 (NQF 0070) - N/A Beta gale for HF with prior LVEF<40 (NQF 0083) - N/A ANTWON-I or ARB for ASHD with DM or prior LVEF<40 (NQF 0066) - N/A Statin therapy for ASHD or FHL or DM - met BMI documented and plan if >25 (NQF 0421) - lifestyle recommendation form Tobacco use screening and referral (NQ 0028) - lifestyle recommendation form Recommendation for whole food, plant based diet - lifestyle recommendation form CLINICAL IMPRESSION/PLAN: Karolina Shelby has apparently stable ischemic heart disease. There is no contraindication to colonoscopy as planned. Aspirin can be held with low risk for next 5 days. No further diagnostic studies are recommended. I will see her in 8 months or as needed. If there is increased chest pain or shortness of breath, she has been advised to contact me. Written and verbal health teaching given to patient, patient verbalizes understanding and agrees with treatment plan. This note was generated using RealDirect voice recognition system, and there may be some incorrect words, spellings, and punctuation that were not noted in checking the note before saving. DIAGNOSIS FOR VISIT: ASHD HISTORY OF PRESENT ILLNESS Karolina Shelby returns for follow-up of her coronary disease and for final preoperative risk assessment. Colonoscopy is scheduled for next week. She recently underwent stress test for evaluation of symptoms of weakness, tiredness and occasional chest discomfort. This showed no evidence of ischemia. Those symptoms have subsequently resolved. In retrospect, she voices the opinion that she might have had the flu. Exercise tolerance is now back to baseline. She's had no further episodes of chest discomfort with shortness of breath. She denies edema, syncope, palpitations, TIAs, amaurosis and claudication. ALLERGIES: ALLERGIES Allergen Reactions - Penicillins Hives - Actos [Pioglitazone* Other: See Comments muscle spasms - Adhesive Tape (Ashlee* Rash Skin comes off with tape Use paper tape - Codeine GI Upset Can take small amounts - Cortisone loses nerve sensation - Darvocet A500 [Prop* Hives - Effexor [Venlafaxin* Shortness of Breath - Januvia [Sitaglipti* Other: See Comments muscle spasms - Lipitor [Atorvastat* Other: See Comments abdominal cramping - Oxycontin [Oxycodon* Other: See Comments headaches - Percocet [Oxycodone* GI Upset - Plavix [Clopidogrel* Diarrhea, Vomiting - Prozac [Fluoxetine * Other: See Comments low blood pressure - Seasonal Allergies Other: See Comments Itchy eyes, runny nose, sneezing - Steroids [Corticost* GI Upset deathly ill, joint pain - Sulfa (Sulfonamide * Hives yeast infections CURRENT OUTPATIENT MEDICATIONS: nitroglycerin sublingual (NITROQUICK) 0.4 mg SL tablet Dissolve 1 tablet under the tongue as needed. FOR CHEST PAIN. IF NO RELIEF CALL 911 atorvastatin (LIPITOR) 40 mg tablet TAKE ONE TABLET BY MOUTH ONCE DAILY sitaGLIPtin (JANUVIA) 25 mg tablet Take 25 mg by mouth once daily. esomeprazole mag trihydrate(NEXIUM 40 MG CAP) Take (1) once daily aspirin, enteric coated (ECOTRIN LOW STRENGTH) 81 mg EC tablet Take 1 tablet by mouth once daily. metFORMIN ER (GLUMETZA) 500 mg 24 hr tablet Take 500 mg by mouth twice daily with meals. oxyCODONE-acetaminophen (PERCOCET) 5-325 mg tablet Take 1 tablet by mouth twice daily as needed. PHYSICAL EXAMINATION: VITAL SIGNS: BP 126/70 Pulse 70 Ht 5' 4 (1.63m) Wt 146 lb (66.2kg) BMI 25.05 kg/(m2). Chest: Clear to percussion and auscultation. Trachea is midline. Air entry is equal. Cardiac: Regular rhythm. S1 and S2 are normal. PMI is nondisplaced. There is a soft systolic ejection murmur. Carotids are brisk without bruits. JVP is less than 10 cm. Abdomen: Soft and nontender. There are no pulsatile masses or bruits. No liver enlargement. Bowel sounds are active. Extremities: No edema. Pulses are intact and symmetrical. Stress test is as described above. Ejection fraction is normal. No ischemia was detected. Electronically Signed: Gerardo Lopes MD December 30, 2017 10:34 AM CC: Tyrel Sy MD CNOV Observed: 12/30/2017 Status: COMPLETED Source: [place] 10:30 AM [facility] REPOSITORY Office Visit (AGCARDWST) KAROLINA SHELBY ([id number]) 1955 F Date Time Provider Department 12/30/17 10:30 AM GERARDO LOPES During your visit today, we recorded the following information about you: Pulse Blood pressure Weight Height 70/minute 126/70 66.2 kg 1.626 m Gerardo Lopes MD 12/30/2017 11:03 AM Signed PERTINENT CARDIAC HISTORY ASHD - PCI RCA 2006, CABGx4 2006, PCI OM 12/2015 DM HTN HL ADHERENCE TO GUIDELINES ANTWON-I or ARB for HF with prior LVEFANDlt;40 (NQF 0081) - N/A ASA or Plavix for ASHD (NQF 0067) - met Beta gale for ASHD with prior SD or prior LVEFANDlt;40 (NQF 0070) - N/A Beta gale for HF with prior LVEFANDlt;40 (NQF 0083) - N/A ANTWON-I or ARB for ASHD with DM or prior LVEFANDlt;40 (NQF 0066) - N/A Statin therapy for ASHD or FHL or DM - met BMI documented and plan if ANDgt;25 (NQF 0421) - lifestyle recommendation form Tobacco use screening and referral (NQF 0028) - lifestyle recommendation form Recommendation for whole food, plant based diet - lifestyle recommendation form CLINICAL IMPRESSION/PLAN: Karolina Shelby has apparently stable ischemic heart disease. There is no contraindication to colonoscopy as planned. Aspirin can be held with low risk for next 5 days. No further diagnostic studies are recommended. I will see her in 8 months or as needed. If there is increased chest pain or shortness of breath, she has been advised to contact me. Written and verbal health teaching given to patient, patient verbalizes understanding and agrees with treatment plan. This note was generated using RealDirect voice recognition system, and there may be some incorrect words, spellings, and punctuation that were not noted in checking the note before saving. DIAGNOSIS FOR VISIT: ASHD HISTORY OF PRESENT ILLNESS Karolina Shelby returns for follow-up of her coronary disease and for final preoperative risk assessment. Colonoscopy is scheduled for next week. She recently underwent stress test for evaluation of symptoms of weakness, tiredness and occasional chest discomfort. This showed no evidence of ischemia. Those symptoms have subsequently resolved. In retrospect, she voices the opinion that she might have had the flu. Exercise tolerance is now back to baseline. She's had no further episodes of chest discomfort with shortness of breath. She denies edema, syncope, palpitations, TIAs, amaurosis and claudication. ALLERGIES: ALLERGIES Allergen Reactions - Penicillins Hives - Actos [Pioglitazone* Other: See Comments muscle spasms - Adhesive Tape (Ashlee* Rash Skin comes off with tape Use paper tape - Codeine GI Upset Can take small amounts - Cortisone loses nerve sensation - Darvocet A500 [Prop* Hives - Effexor [Venlafaxin* Shortness of Breath - Januvia [Sitaglipti* Other: See Comments muscle spasms - Lipitor [Atorvastat* Other: See Comments abdominal cramping - Oxycontin [Oxycodon* Other: See Comments headaches - Percocet [Oxycodone* GI Upset - Plavix [Clopidogrel* Diarrhea, Vomiting - Prozac [Fluoxetine * Other: See Comments low blood pressure - Seasonal Allergies Other: See Comments Itchy eyes, runny nose, sneezing - Steroids [Corticost* GI Upset ANDquot;deathly illANDquot;, joint pain - Sulfa (Sulfonamide * Hives yeast infections CURRENT OUTPATIENT MEDICATIONS: nitroglycerin sublingual (NITROQUICK) 0.4 mg SL tablet Dissolve 1 tablet under the tongue as needed. FOR CHEST PAIN. IF NO RELIEF CALL 911 atorvastatin (LIPITOR) 40 mg tablet TAKE ONE TABLET BY MOUTH ONCE DAILY sitaGLIPtin (JANUVIA) 25 mg tablet Take 25 mg by mouth once daily. esomeprazole mag trihydrate(NEXIUM 40 MG CAP) Take (1) once daily aspirin, enteric coated (ECOTRIN LOW STRENGTH) 81 mg EC tablet Take 1 tablet by mouth once daily. metFORMIN ER (GLUMETZA) 500 mg 24 hr tablet Take 500 mg by mouth twice daily with meals. oxyCODONE-acetaminophen (PERCOCET) 5-325 mg tablet Take 1 tablet by mouth twice daily as needed. PHYSICAL EXAMINATION: VITAL SIGNS: BP 126/70 Pulse 70 Ht 5' 4ANDquot; (1.63m) Wt 146 lb (66.2kg) BMI 25.05 kg/(m2). Chest: Clear to percussion and auscultation. Trachea is midline. Air entry is equal. Cardiac: Regular rhythm. S1 and S2 are normal. PMI is nondisplaced. There is a soft systolic ejection murmur. Carotids are brisk without bruits. JVP is less than 10 cm. Abdomen: Soft and nontender. There are no pulsatile masses or bruits. No liver enlargement. Bowel sounds are active. Extremities: No edema. Pulses are intact and symmetrical. Stress test is as described above. Ejection fraction is normal. No ischemia was detected. Electronically Signed: Gerardo Lopes MD December 30, 2017 10:34 AM CC: MD Gerardo Ayon MD 12/30/2017 10:34 AM Signed LIFESTYLE CHANGE A healthy lifestyle is the most important component of your overall treatment plan. Please give serious thought to the following areas and commit to making intermediate changes. EAT A WHOLE FOOD, PLANT BASED DIET The nutrition your body gets is more important than the medicine you take. What matters most is the overall way you eat. We encourage you to minimize the use of animal products (which include dairy and all meats except fatty fish) and use whole, unprocessed plant foods to provide your protein, vitamins and other nutrients. We have a lot of information to share with you on this topic. We also hold Shared Medical Appointments, where you can come visit with Dr. Lopes in the company of other patients and spend over an hour talking about the challenges of changing the way you eat. This is not a ANDquot;dietANDquot;. It is a way of life that you will keep with you. EXERCISE REGULARLY It is not important to spend hours in the gym, lifting weights and perspiring heavily. A total of 2-3 hours per week of aerobic (causing you to be moderately short of breath) exercise is sufficient to improve your health. Talk to us before you begin a new exercise program, if you have heart disease or experience shortness of breath or chest pain. REDUCE STRESS Chronic emotional and physical stress leads to disease. Ways of reducing stress include meditation, visualization, prayer, yoga and other forms of relaxation therapy. Consistency is the martinez. Find a technique that works for you and do it every day. CULTIVATE RELATIONSHIPS Loneliness and isolation have a major negative impact on health. Seek out others who can love, care for and nurture you. Avoid hurtful relationships. MAINTAIN IDEAL BODY WEIGHT The best way to do this is to do all the things above. Our bodies naturally find the right weight if we keep moving and feed ourselves the right food. If your BMI is greater than 25, we strongly recommend a referral to a weight management program. Please speak to us or your family physician about available programs. AVOID NICOTINE IN ALL FORMS This includes all tobacco products, whether chewed, smoked, vaped, or rubbed on the skin. Smoking cessation programs, which can make use of tobacco substitutes, medications to suppress cravings and behavior management, are available. Please contact your family physician about programs in your area. Karlos Garcia, RN, RN 12/30/2017 11:26 AM Signed Copy of this note faxed to Dr. Narvaez's office and mailed to Dr. Sy's office. Referring Provider: GERARDO LOPES [[id number]] Allergies As of Date: 12/30/2017 Noted Allergy Reaction PENICILLINS 01/18/2006 4 - Hives ACTOS (PIOGLITAZONE HCL) 05/11/2011 14 - Other: See Comments Comments: muscle spasms ADHESIVE TAPE (ROSINS) 04/12/2013 2 - Rash Comments: Skin comes off with tape Use paper tape CODEINE 04/12/2013 8 - GI Upset Comments: Can take small amounts CORTISONE 01/18/2006 Comments: loses nerve sensation DARVOCET A500 (PROPOXYPHENE N-ANTWON*01/18/2006 4 - Hives EFFEXOR (VENLAFAXINE ANALOGUES) 05/11/2011 12 - Shortness of Breath JANUVIA (SITAGLIPTIN) 05/11/2011 14 - Other: See Comments Comments: muscle spasms LIPITOR (ATORVASTATIN CALCIUM) 05/11/2011 14 - Other: See Comments Comments: abdominal cramping OXYCONTIN (OXYCODONE HCL) 05/11/2011 14 - Other: See Comments Comments: headaches PERCOCET (OXYCODONE-ACETAMINOPHEN)12/09/2012 8 - GI Upset PLAVIX (CLOPIDOGREL BISULFATE) 02/21/2016 6 - Diarrhea 11 - Vomiting PROZAC (FLUOXETINE HCL) 05/11/2011 14 - Other: See Comments Comments: low blood pressure SEASONAL ALLERGIES 03/20/2013 14 - Other: See Comments Comments: Itchy eyes, runny nose, sneezing STEROIDS (CORTICOSTEROIDS (GLUCOC*04/12/2013 8 - GI Upset Comments: deathly ill, joint pain SULFA (SULFONAMIDE ANTIBIOTICS) 05/11/2011 4 - Hives Comments: yeast infections Date Reviewed: 12/30/2017 Reviewed by: Lucita Smith - Fully Assessed Reason for Visit: Follow Up [171] Primary Visit Diagnosis:ASHD (arteriosclerotic heart disease) [I25.10] Prescriptions as of 12/30/2017 Sig: NITROGLYCERIN 0.4 MG SUBLINGU* Dissolve 1 tablet under the t* ATORVASTATIN 40 MG TABLET TAKE ONE TABLET BY MOUTH ONCE* SITAGLIPTIN 25 MG TABLET Take 25 mg by mouth once anisa* * NEXIUM 40 MG CAPSULE,DELAYED * Take (1) once daily ASPIRIN 81 MG TABLET,DELAYED * Take 1 tablet by mouth once d* METFORMIN ER 500 MG 24 HR TAB* Take 500 mg by mouth twice da* OXYCODONE-ACETAMINOPHEN 5 MG-* Take 1 tablet by mouth twice * Medication notes this encounter ASPIRIN 81 MG TABLET,DELAYED RELEASE >> Lucita Smith MA 12/30/2017 10:23 AM >> LUCITA SMITH MA Pretty Dec 30, 2017 10:23 AM Not taking Problem List As Of Date 12/30/2017 Noted Resolved CHEST PAIN NOS [R07.9] INVALID FOR* ASCVD [I25.10] INVALID FOR* HYPERLIPIDEMIA NEC/NOS [E78.5] INVALID FOR* Nausea with Vomiting [R11.2] INVALID FOR* Unspecified Esophagitis [K20.9] INVALID FOR* Diaphragmatic Hernia without Mention of Obstruc*INVALID FOR* Acute Gastritis without Mention of Hemorrhage [*INVALID FOR* Diarrhea [R19.7] INVALID FOR* Benign neoplasm of colon [D12.6] INVALID FOR* Arthropathy, 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] INVALID FOR* Chronic pain disorder [G89.4] INVALID FOR* Diffuse myofascial pain syndrome [M79.1] INVALID FOR* Adhesive capsulitis of left shoulder [M75.02] INVALID FOR* Left rotator cuff tear [M75.102] INVALID FOR* Pain in joint, shoulder region [M25.519] INVALID FOR* Adhesive capsulitis of shoulder [M75.00] INVALID FOR* Arthritis of foot, 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 Please give serious thought to the following areas and commit to making oysterman changes. EAT A WHOLE FOOD, PLANT BASED DIET The nutrition your body gets is more important than the medicine you take. What matters most is the overall way you eat. We encourage you to minimize the use of animal products (which include dairy and all meats except fatty fish) and use whole, unprocessed plant foods to provide your protein, vitamins and other nutrients. We have a lot of information to share with you on this topic. We also hold Shared Medical Appointments, where you can come visit with Dr. Lopes in the company of other patients and spend over an hour talking about the challenges of changing the way you eat. This is not a diet. It is a way of life that you will keep with you. EXERCISE REGULARLY It is not important to spend hours in the gym, lifting weights and perspiring heavily. A total of 2-3 hours per week of aerobic (causing you to be moderately short of breath) exercise is sufficient to improve your health. Talk to us before you begin a new exercise program, if you have heart disease or experience shortness of breath or chest pain. REDUCE STRESS Chronic emotional and physical stress leads to disease. Ways of reducing stress include meditation, visualization, prayer, yoga and other forms of relaxation therapy. Consistency is the martinez. Find a technique that works for you and do it every day. CULTIVATE RELATIONSHIPS Loneliness and isolation have a major negative impact on health. Seek out others who can love, care for and nurture you. Avoid hurtful relationships. MAINTAIN IDEAL BODY WEIGHT The best way to do this is to do all the things above. Our bodies naturally find the right weight if we keep moving and feed ourselves the right food. If your BMI is greater than 25, we strongly recommend a referral to a weight management program. Please speak to us or your family physician about available programs. AVOID NICOTINE IN ALL FORMS This includes all tobacco products, whether chewed, smoked, vaped, or rubbed on the skin. Smoking cessation programs, which can make use of tobacco substitutes, medications to suppress cravings and behavior management, are available. Please contact your family physician about programs in your area. Visit Notes: >> Karlos (Rn) HOSSEIN Garcia Pretty Dec 30, 2017 11:26 AM Status: Signed Copy of this note faxed to Dr. Narvaez's office and mailed to Dr. Sy's office. Follow-up and Disposition History Recorded Encounter Status:Closed by GERARDO LOPES MD on 12/30/17 STRESS REPORT Observed: 12/23/2017 Status: F Source: [place] 9:14 AM [facility] REPOSITORY [facility] Cardiovascular Services [address] [place] [address] MR#: [id number] Acct: [id number] Name: KAROLINA SHELBY Rep #: [id number] : 1955 62 From: Chase Mancilla MD Primary Care: Tyrel Sy MD Status: REG CLI Ordering Dr: Sex: F C Stress Test Report Pharmacologic myocardial perfusion stress test. 62-year-old lady with a history of coronary artery bypass surgery and coronary artery stenting. Stress protocol: The EKG demonstrates normal sinus rhythm with a rate of 67 bpm. Resting blood pressure is 158/76 centimeters of mercury. 0.4 mg of regadenoson was infused per usual protocol followed by rapid intravenous saline flush injection. Continuous EKG monitoring was performed. The maximum heart rate attained was 120 bpm which was 75% of the maximum predicted heart rate the maximum workload attained was 1 metabolic equivalent. At rest there were no ST or T-wave changes noted to suggest abnormal flow reserve at peak infusion no ST or T-wave changes were noted to suggest abnormal flow reserve. The resting blood pressure is 158/76 with a peak blood pressure 178/80 mmHg. Myocardial perfusion protocol. 10.6 mCi of technetium 99m sestamibi was injected at rest. 0.4 mg of regadenoson was infused per usual protocol. Peak infusion 31.8 mCi of technetium 99m sestamibi was injected. Stress images were obtained. Stress and rest images were reconstructed and compared in the short axis vertical long and horizontal long axis. Gated images were also obtained. Perfusion SPECT analysis: Review of the stress images demonstrate normal uptake of tracer noted in all areas of the myocardium. The resting images demonstrate normal uptake of tracer in all areas of the myocardium. No ischemia is present. Gated SPECT analysis: The ejection fraction is noted to be 63%. Conclusion Normal pharmacologic myocardial perfusion stress test. Preserved ejection fraction. 12/23/17913 <Electronically signed by Chase Mancilla MD> Date Chase Mancilla MD CC: Tyrel Sy MD; Gerardo Lopes MD Date Dictated: 12/23/17906 Date Transcribed: 12/23/17906 Grief Counselor: CO Signed ALLERGIES ALLERGIES DATE TYPE / NAME / CODE REACTION SEVERITY SOURCE CODE 07/04/2018 Drug fluoxetine Vomiting Unknown [place] Allergy/41 HCl/[id number](RXNO[address]) Repository 07/04/2018 Drug hydrocodone Vomiting Unknown [place] Allergy/41 bitartrate/[id number] [address]) Repository 07/04/2018 Drug oxycodone Other Unknown [place] Allergy/41 HCl/[id number](RXNO[address]) Repository 07/04/2018 Drug propoxyphene Vomiting Unknown [place] Allergy/41 napsylate/[id number]( [facility] [id number] [place] [address]) Repository 07/04/2018 Drug fluticasone Hives Unknown [place] Allergy/41 propionate/[id number] [address]) Repository 07/04/2018 Drug venlafaxine Hives Unknown [place] Allergy/41 HCl/M686982666(RXNO[address]) Repository 07/04/2018 Drug pioglitazone Vomiting Unknown [place] Allergy/41 HCl/[id number](RXNORM [address]) Repository 07/04/2018 Drug sitagliptin Hives Unknown [place] Allergy/41 phosphate/L880086880( [address]) Repository 07/04/2018 Drug desvenlafaxine Other Unknown [place] Allergy/41 succinate/Y902990453( Community 8998385( RXNORM) [facility]) Repository 07/04/2018 Drug Penicillins/[id number] Hives Unknown [place] Allergy/41 6(RXNORM) Community 0294242([facility]) Repository 07/04/2018 Drug Sulfa (Sulfonamide Hives Unknown [place] Allergy/41 Antibiotics)/[id number] Community 8111537([facility](RXNORM) [facility]) Repository 07/04/2018 Drug lisinopril/D855991268 Other Unknown [place] Allergy/41 (RXNORM) Community 1423916([facility]) Repository 07/04/2018 Drug codeine/G954473155(RX Hives Unknown [place] Allergy/41 NORM) Community 1155813([facility]) Repository 07/04/2018 Drug mometasone Hives Unknown [place] Allergy/41 furoate/N024765201(RX Community 5620192( NORM) [facility]) Repository 07/04/2018 Drug hydrochlorothiazide/F Other Unknown [place] Allergy/41 525219787(RXNORM) Community 4037493([facility]) Repository 07/04/2018 Drug tramadol/S810125589(R Hives Unknown [place] Allergy/41 XNORM) Community 7317224([facility]) Repository 07/04/2018 Drug gabapentin/Q225164330 Vomiting Unknown [place] Allergy/41 (RXNORM) Community 9227550([facility]) Repository 07/04/2018 Drug cortisone/H696742554( Other Unknown [place] Allergy/41 RXNORM) Community 3763891([facility]) Repository 07/04/2018 Drug losartan/G125616499(R Other Unknown [place] Allergy/41 XNORM) Community 6170857([facility]) Repository 07/04/2018 Drug tizanidine/N398058362 Other Unknown [place] Allergy/41 (RXNORM) Community 6717148([facility]) Repository 03/24/2018 Drug atorvastatin Other Unknown [place] Allergy/41 calcium/X130654191(RX Community 6844443( NORM) Hospital OMED [facility]) Repository 12/03/2017 Drug acetaminophen/S854334 Vomiting Unknown [place] Allergy/41 605(RXNORM) Community 4802876([facility] OME CT) Repository 02/21/2016 DRUG CLOPIDOGREL BISULFATE DIARRHEA [place] INGREDI/41 Clinic Other 6619920([facility] OMED CT) Repository 04/12/2013 Chemical/4 ADHESIVE TAPE RASH [place] (S (ROSINS) Clinic Other NOMED CT) [place] Repository 04/12/2013 DRUG CODEINE GI UPSET [place] INGREDI/41 Clinic Other 5367862([facility] OMED CT) Repository 04/12/2013 Drug CORTICOSTEROIDS GI UPSET Marie Class/4195 (GLUCOCORTICOIDS) Clinic Other 58098([facility] ED CT) Repository 03/20/2013 Environ/42 SEASONAL ALLERGIES OTHER: SEE C [place] 4798863([facility] Other OMED CT) [place] Repository 12/09/2012 DRUG/20384 OXYCODONE-ACETAMINOPH GI UPSET Marie 1003(SNOME EN Clinic Other D CT) [place] Repository 05/11/2011 DRUG PIOGLITAZONE HCL OTHER: SEE C [place] INGREDI/41 Clinic Other 8237394([facility] OMED CT) Repository 05/11/2011 Drug VENLAFAXINE ANALOGUES SHORTNESS OF Marie Class/4195 Clinic Other 25242([facility] ED CT) Repository 05/11/2011 DRUG SITAGLIPTIN OTHER: SEE C [place] INGREDI/41 Clinic Other 6701127([facility] OMED CT) Repository 05/11/2011 DRUG ATORVASTATIN CALCIUM OTHER: SEE C [place] INGREDI/41 Clinic Other 9287136([facility] OMED CT) Repository 05/11/2011 DRUG OXYCODONE HCL OTHER: SEE C [place] INGREDI/41 Clinic Other 4739742([facility] OMED CT) Repository 05/11/2011 DRUG FLUOXETINE HCL OTHER: SEE C [place] INGREDI/41 Clinic Other 9303528([facility] OMED CT) Repository 05/11/2011 Drug SULFA (SULFONAMIDE HIVES Marie Class/4195 ANTIBIOTICS) Clinic Other 68958([facility] [place] ED CT) Repository 01/18/2006 Drug PENICILLINS HIVES High Marie Class/4195 Clinic Other 23351([facility] [place] ED CT) Repository 01/18/2006 DRUG CORTISONE Marie INGREDI/41 Clinic Other 6706303(SN [place] OMED CT) Repository 01/18/2006 DRUG/49729 PROPOXYPHENE HIVES [place] 1003(SNOME N-ACETAMINOPHEN Clinic Other D CT) [place] Repository NG/0030645 PENICILLINS [facility] 06(SNOMED [facility]) Repository NG/6099037 PIOGLITAZONE HCL [facility] 06(SNOMED [facility]) Repository NG/6722886 ADHESIVE TAPE [facility] 06(SNOMED (ROSINS) [facility]) Repository NG/0341640 CODEINE [facility] 06(SNOMED [facility]) Repository NG/2111725 CORTISONE [facility] 06(SNOMED [facility]) Repository NG/2542513 PROPOXYPHENE [facility] 06(SNOMED N-ACETAMINOPHEN [facility]) Repository NG/4333793 VENLAFAXINE ANALOGUES [facility] 06(SNOMED [facility]) Repository NG/0682847 SITAGLIPTIN [facility] 06(SNOMED [facility]) Repository NG/5961847 ATORVASTATIN CALCIUM [facility] 06(SNOMED [facility]) Repository NG/2411355 OXYCODONE HCL [facility] 06(SNOMED [facility]) Repository NG/1920409 OXYCODONE-ACETAMINOPH [facility] 06(SNOMED EN [facility] CT) Repository NG/2224578 CLOPIDOGREL BISULFATE [facility] 06(SNOMED [facility]) Repository NG/7507350 FLUOXETINE HCL [facility] 06(SNOMED [facility]) Repository NG/2596783 SEASONAL ALLERGIES [facility] 06(SNOMED [facility]) Repository NG/3301117 CORTICOSTEROIDS [facility] 06(SNOMED (GLUCOCORTICOIDS) [facility]) Repository NG/6040031 SULFA (SULFONAMIDE [facility] 06(SNOMED ANTIBIOTICS) Health System CT) Repository ENCOUNTERS ENCOUNTERS ADMIT/DISCHARGE ACCOUNT NUMBER ADMITTING ENCOUNTER LOCATION SOURCE CLASS 11/30/2018 [id number] [facility] ding:MTRAD Repository 11/10/2018 [id number] [facility] ding:MFPLAB Repository 08/30/2018/08/31/20 [id number] Ambulatory [address] [place] Repository 08/22/2018/09/06/20 [id number] Ambulatory [address] Repository 08/10/2018 [id number] Ambulatory [facility] ding:MFPLAB Repository 07/04/2018 [id number] Ambulatory [facility] ding:OMD Repository 07/04/2018 [id number] Ambulatory BMSBuilding: [place] BMS.CF.[facility] Repository 06/02/2018 [id number] Ambulatory BMSBuilding: [place] BMS.CF.[facility] Repository 05/12/2018 [id number] Ambulatory BMSBuilding: [place] BMS.CF.[facility] Repository 04/11/2018/04/11/20 [id number] Ambulatory [address] ding:ENRoom: Repository AC12 04/11/2018 [id number] Ambulatory BMSBuilding: [place] BMS.CF.[facility] Repository 03/24/2018/03/24/20 [id number] Ambulatory BMSBuilding: [place] 18 BMS.[facility] Repository 03/10/2018 [id number] Ambulatory BMSBuilding: [place] BMS.CF.[facility] Repository 02/24/2018 [id number] Ambulatory [facility] ding:CT Repository 02/24/2018 [id number] Ambulatory BMSBuilding: [place] BMS.CF.[facility] Repository 02/18/2018 [id number] Ambulatory [facility] ding:BI Repository 02/07/2018 [id number] Ambulatory [facility] ding:MFPLAB Repository 01/10/2018 [id number] Ambulatory [facility] Repository 01/10/2018/01/10/20 [id number] TONIA, Ambulatory Building:[address] ORoom: [place] ENDOBed: 1 Hospital Repository 01/03/2018/01/03/20 [id number] Ambulatory [address] ding:ENRoom: Repository AC10 01/03/2018 [id number] Ambulatory BMSBuilding: [place] BMS.CF.[facility] Repository 12/30/2017/12/30/19 [id number] Ambulatory [address] Repository 12/30/2017/12/30/19 [id number] Ambulatory [address] MEDICAL Repository CENTERBuildi ng:CAGWS 12/23/2017 [id number] Ambulatory [facility] ding:[facility] Repository 12/23/2017 [id number] Ambulatory BMSBuilding: [place] [facility] Repository PAYERS PAYERS ENCOUNTER GUARANTOR PAYER SUBSCRIBER SOURCE 11/30/2018 KAROLINA Mclaughlin Primary KAROLINA M [place] [id number] Insurance:MEDICARE FERGUSONDOB: [facility] [id number] Number: Repository [id number]: [phone] [id number] [phone] () Date:2018-11-30 11/30/2018 Secondary KAROLINA Mayorga Insurance:[facility] FERGUSONDOB: [facility] [id number] Hospital Number: Repository [id number] Date:7961-50-69QZ [address] [address]ND: 11/30/2018 Tertiary NOT GIVENUNK [place] Insurance:SELF PAY [facility] Number: Effective Repository Date:2018-11-30 11/10/2018 KAROLINA Mclaughlin Primary KAROLINA M [place] [id number] Insurance:MEDICARE FERGUSONDOB: [facility] [id number] Number: Repository [id number]: [phone] [id number] [phone] () Date:2018-11-10 11/10/2018 Secondary KAROLINA Nicoleoster Insurance:[facility] FERGUSONDOB: [facility] [id number] Hospital Number: Repository [id number] Date:1405-74-43ZV [address] [address]VO: 11/10/2018 Tertiary NOT GIVENUNK [place] Insurance:SELF PAY [facility] Number: Effective Repository Date:2018-11-10 08/10/2018 KAROLINA Mclaughlin Primary KAROLINA M [place] [id number] Insurance:MEDICARE FERGUSONDOB: [facility] [id number] Number: Repository [id number]: [phone] [id number] [phone] (HP) Date:2018-08-10 08/10/2018 Secondary KAROLINA Mclaughlin [place] Insurance:[facility] FERGUSONDOB: [facility] [id number] Hospital Number: Repository [id number] Date:6550-18-80WD [address] [address]FE: 08/10/2018 Tertiary NOT GIVENUNK [place] Insurance:SELF PAY [facility] Number: Effective Repository Date:2018-08-10 07/04/2018 KAROLINA Mclaughlin Primary KAROLINA Nicoleoster [id number] Insurance:MEDICARE FERGUSONDOB: [facility] MARIE PART A [facility] [id number] Number: Repository [phone]: [phone] [id number] [phone] (HP) Date:2018-02-18 07/04/2018 Secondary KAROLINA Mclaughlin [place] Insurance:[facility] FERGUSONDOB: [facility] [id number] Hospital Number: Repository [id number] Date:[id number] [address]IL: 07/04/2018 Tertiary NOT GIVENUNK [place] Insurance:SELF PAY [facility] Number: Effective Repository Date:2018-02-18 07/04/2018 KAROLINA Mclaughlin Primary KAROLINA Mclaughlin [place] [id number] Insurance:MEDICARE FERGUSONDOB: [facility] [id number] Number: Repository [id number]: [phone] [id number] [phone] (HP) Date:2018-02-18 07/04/2018 Secondary KAROLINA Mclaughlin [place] Insurance:[facility] FERGUSONDOB: [facility] [id number] Hospital Number: Repository [id number] Date:0748-43-75EF[address] [address]CD: 07/04/2018 Tertiary NOT GIVENUNK [place] Insurance:SELF PAY [facility] Number: Effective Repository Date:2018-07-04 06/02/2018 KAROLINA Mclaughlin Primary KAROLINA Mclaughlin [place] [id number] Insurance:MEDICARE FERGUSONDOB: [facility] [id number], [place] Number: Repository [id number]: [phone] [id number] [phone] (HP) Date:2018-02-18 06/02/2018 Secondary KAROLINA Mclaughlin [place] Insurance:[employer]HC FERGUSONDOB: [facility] [id number] Hospital Number: Repository [id number] Date:6945-98-02PT [address] [address]LT: 06/02/2018 Tertiary NOT GIVENUNK [place] Insurance:SELF PAY [facility] Number: Effective Repository Date:2018-06-02 05/12/2018 KAROLINA Mclaughlin Primary KAROLINA Mclaughlin [place] [id number] Insurance:MEDICARE FERGUSONDOB: [facility] [id number] Number: Repository [id number]: [id number] [phone] Date:2018-02-18 () 05/12/2018 Secondary KAROLINA Mclaughlin [place] Insurance:UHC FERGUSONDOB: [facility] [id number] Hospital Number: Repository [id number] Date:3319-71-61KJ [address] [address]YU: 05/12/2018 Tertiary NOT GIVENUNK [place] Insurance:SELF PAY [facility] Hospital Number: Effective Repository Date:2018-05-12 04/11/2018 KAROLINA Mclaughlin Primary KAROLINA Mclaughlin [place] [id number] Insurance:MEDICARE FERGUSONDOB: [facility] PART A [facility] [id number] Number: Repository [id number]: [id number] [phone] Date:2018-03-24 () 04/11/2018 Secondary KAROLINA Mclaughlin [place] Insurance:UHC FERGUSONDOB: [facility] [id number] Hospital Number: Repository [id number] Date:4453-56-68PF [address] [address]WI: 04/11/2018 Tertiary NOT GIVENUNK [place] Insurance:SELF PAY [facility] Number: Effective Repository Date:2018-03-24 04/11/2018 KAROLINA Mclaughlin Primary KAROLINA Mclaughlin [place] [id number] Insurance:MEDICARE FERGUSONDOB: Community MARIE PART A [facility] [id number] Number: Repository [id number]: [id number] [phone] Date:2018-03-24 () 04/11/2018 Secondary KAROLINA Mclaughlin [place] Insurance:[facility] FERGUSONDOB: [facility] [id number] Hospital Number: Repository [id number] Date:3450-06-97DP [address] [address]IV: 04/11/2018 Tertiary NOT GIVENUNK [place] Insurance:SELF PAY [facility] Number: Effective Repository Date:2018-04-11 03/24/2018 KAROLINA Mclaughlin Primary KAROLINA Mclaughlin [place] [id number] Insurance:MEDICARE FERGUSONDOB: Community MARIE PART A [facility] [id number], [place] Number: Repository [id number]: [id number] [phone] Date:2018-03-22 () 03/24/2018 Secondary KAROLINA Mclaughlin [place] Insurance:[facility] FERGUSONDOB: [facility] [id number] Hospital Number: Repository [id number] Date:[id number] [address] [address]GA: 03/24/2018 Tertiary NOT GIVENUNK [place] Insurance:SELF PAY [facility] Number: Effective Repository Date:2018-03-22 03/10/2018 KAROLINA Mclaughlin Primary KAROLINA Mclaughlin [place] [id number] Insurance:MEDICARE FERGUSONDOB: Community MARIE PART A [facility] [id number] Number: Repository [id number]: [id number] [phone] Date:2018-02-18 () 03/10/2018 Secondary KAROLINA Mclaughlin [place] Insurance:[facility] FERGUSONDOB: [facility] [id number] Hospital Number: Repository [id number] Date:0416-74-26RF [address] [address]NW: 03/10/2018 Tertiary NOT GIVENUNK [place] Insurance:SELF PAY [facility] Number: Effective Repository Date:2018-03-10 02/24/2018 KAROLINA Mclaughlin Primary KAROLINA Mclaughlin [place] [id number] Insurance:MEDICARE FERGUSONDOB: [facility] PART A [facility] [id number] Number: Repository [id number]: [id number] [phone] Date:2018-02-18 (HP) 02/24/2018 Secondary KAROLINA Mclaughlin [place] Insurance:[facility] FERGUSONDOB: [facility] [id number] Hospital Number: Repository [id number] Date:0638-48-79IA [address] [address]TJ: 02/24/2018 Tertiary NOT GIVENUNK [place] Insurance:SELF PAY [facility] Number: Effective Repository Date:2018-02-18 02/24/2018 KAROLINA Mclaughlin Primary KAROLINA Mclaughlin [place] [id number] Insurance:MEDICARE FERGUSONDOB: [facility] PART A [facility] [id number] Number: Repository [id number]: [id number] [phone] Date:2018-02-18 (HP) 02/24/2018 Secondary KAROLINA Mclaughlin [place] Insurance:[facility] FERGUSONDOB: [facility] [id number] Hospital Number: Repository [id number] Date:0775-34-87FK [address] [address]TI: 02/24/2018 Tertiary NOT GIVENUNK [place] Insurance:SELF PAY [facility] Number: Effective Repository Date:2018-02-24 02/18/2018 KAROLINA Mclaughlin Primary KAROLINA Mclaughlin [place] [id number] Insurance:MEDICARE FERGUSONDOB: [facility] PART A [facility] [id number] Number: Repository [id number]: [id number] [phone] Date:2018-02-16 (HP) 02/18/2018 Secondary KAROLINA Mclaughlin [place] Insurance:[facility] FERGUSONDOB: [facility] [id number] Hospital Number: Repository [id number] Date:5778-46-70WF [address] [address]CK: 02/18/2018 Tertiary NOT GIVENUNK [place] Insurance:SELF PAY [facility] Number: Effective Repository Date:2018-02-16 02/07/2018 KAROLINA Mclaughlin [facility] KAROLINA [place] [id number] Insurance:MEDICARE FERGUSONDOB: [facility] PART A [facility] [id number], [place] Number: Repository [id number]: [id number] [phone] Date:2018-02-07 (HP) 02/07/2018 Secondary KAROLINA M [place] Insurance:[facility] FERGUSONDOB: [facility] [id number] Hospital Number: Repository [id number] Date:8206-59-77MZ [address] [address]LL: 02/07/2018 Tertiary NOT GIVENUNK [place] Insurance:SELF PAY [facility] Number: Effective Repository Date:2018-02-07 01/10/2018 [facility]US[facility]: Insurance:MedicarePol FERGUSONDOB: [facility] [id number] icy Number: [id number] [facility] [id number] [address] [place] [address] Date:Plan Name:[place], [place] [address]Frq: (330) A [address]Jhp: (HP) [phone] (HP) 01/10/2018 Secondary [facility] Insurance:MedicarePol FERGUSONDOB: Hospitals icy Number: [id number] Repository [id number] [address] Date:Plan Name:[place], [place] B [address]Xtb: (HP) 01/10/2018 [facility] Insurance:United FERGUSONDOB: [facility] [id number] Repository PlanPolicy Number: [address] [id number] [place], [place] Date:Plan [address]Mpf: (330) Name:[facility] [phone] (HP) [address] [place] [address]ZI: 01/10/2018 [facility] Insurance:United FERGUSONDOB: [facility] [id number] Repository [facility] [address] [place], [place] Number: [id number]: 330 [id number] [phone] (HP) Date:Plan Name:Health 01/10/2018 [facility] Insurance:MedicaidPol Hospitals icy Number: Effective Repository Date:Plan Name:[facility] [address] [address]MA: 01/10/2018 [facility] FERGUSONDOB: Insurance:MEDICARE FERGUSONDOB: Hospital [id number] PART B OPPolicy [id number] Repository [address] Number: [address] [place], [place] [id number] [place], [place] [address]Cck: (330) Date:1958-11-29P O [address]Nmc: (HP) [address]LDMFYYXOA, [phone] (HP) [place] [address]AJ: 01/10/2018 Secondary [facility] Insurance:[facility] FERGUSONDOB: Hospital [facility] [id number] Repository Number: [address] [id number] [place] Date:9890-45-86ZY [address] [address]Rpv: (047) [address] [place] [address] [phone] () [address]VY: 01/03/2018 KAROLINA Mclaughlin Primary KAROLINA Mclaughlin [place] [id number] Insurance:MEDICARE FERGUSONDOB: [facility] [id number], [place] Number: Repository [address]Yuk: [id number] [phone] Date:2017-11-15 () 01/03/2018 Secondary KAROLINA M [place] Insurance:[facility] FERGUSONDOB: [facility] [id number] Hospital Number: Repository [id number] Date:5916-98-89QS [address] [place] [address]BO: 01/03/2018 Tertiary NOT GIVENUNK [place] Insurance:SELF PAY [facility] Number: Effective Repository Date:2017-11-15 01/03/2018 KAROLINA Mclaughlin Primary KAROLINA Mclaughlin [place] [id number] Insurance:MEDICARE FERGUSONDOB: [facility] [id number] Number: Repository [id number]: [id number] [phone] Date:2017-11-15 () 01/03/2018 Secondary KAROLINA M [place] Insurance:[facility] FERGUSONDOB: [facility] [id number] Hospital Number: Repository [id number] Date:7123-30-56LJ [address] [place] [address]MW: 01/03/2018 Tertiary NOT GIVENUNK [place] Insurance:SELF PAY [facility] Number: Effective Repository Date:2018-01-03 12/30/2017 KAROLINA Primary KAROLINA [facility] FERGUSONDOB: Insurance:[facility] FERGUSONDOB: Health System [id number] MEDICAREPolicy [id number] Number: [place] [id number] [address]Blf: (330) Date: [phone] (HP) 12/30/2017 Secondary KAROLINA [facility] Insurance:[facility]CARE [facility] FERGUSONDOB: [facility] System MEDICAIDPolicy [id number] Repository Number: [id number] Date: 12/23/2017 KAROLINA Mclaughlin Primary KAROLINA Mclaughlin [place] [id number] Insurance:MEDICARE FERGUSONDOB: [facility] [id number], [place] Number: Repository [id number]: [id number] [phone] Date:2017-12-08 (HP) 12/23/2017 Secondary KAROLINA [place] Insurance:[facility] FERGUSONDOB: [facility] [id number] Hospital Number: Repository [id number] Date:5157-92-34XW [address] [address]YR: 12/23/2017 Tertiary NOT GIVENUNK [place] Insurance:SELF PAY [facility] Number: Effective Repository Date:2017-12-08 12/23/2017 KAROLINA Mclaughlin Primary KAROLINA Mclaughlin [place] [id number] Insurance:MEDICARE FERGUSONDOB: [facility] [id number], [place] Number: Repository [id number]: [id number] [phone] Date:2017-12-08 () 12/23/2017 Secondary KAROLINA Mclaughlin [place] Insurance:[facility] FERGUSONDOB: [facility] [id number] Hospital Number: Repository [id number] Date:6242-67-46MO [address] [address]EU: 12/23/2017 Tertiary NOT GIVENUNK [place] Insurance:SELF PAY [facility] Number: Effective Repository Date:2017-12-23
== END ==
PROVIDERS: Family Provider Family Medicine; PCP Family Medicine; Visit Provider Family Medicine
DX: R97.0 Elevated carcinoembryonic antigen [CEA] (principal); E55.9 Vitamin D deficiency, unspecified; R53.83 Other fatigue
CPT/HCPCS: 36415; 82306; 82378; 82607; 85652; 86140

== ENCOUNTER → 2018-11-30 17:09 | Outpatient (CLI) | payer MEDICARE, MEDICAID, SELFPAY ==
[2018-11-10 11:01] VITALS: BMI 24.8
--- NOTE | 2018-11-30 17:14 | RAD_ITS ---
STUDY: X-RAY CHEST REASON FOR EXAM: Female, 63 years old. Cough TECHNIQUE: 2 views COMPARISON: January 25, 2016 FINDINGS: Median sternotomy wires are in place. A small calcified granuloma is in the left lower lobe. There is no acute pneumonia or failure and there are no pleural effusions. Normal visualized thoracic spine. Normal visualized ribs, clavicles, and shoulders. There is no demonstrated abnormality of the visualized soft tissue structures of the upper abdomen. RAD/Chest PA and Lateral IMPRESSION: No acute findings in the lungs Electronically Signed: Geovani Short MD at 6:45 EST Tel , Service support ,
== END ==
PROVIDERS: Family Provider Family Medicine; PCP Family Medicine; Referring Provider Family Medicine; Visit Provider Family Medicine
DX: J44.1 Chronic obstructive pulmonary disease with (acute) exacerbation (principal)
CPT/HCPCS: 71046

== ENCOUNTER → 2019-01-05 15:34 | Outpatient (CLI) | payer MEDICARE, MEDICAID, SELFPAY ==
[2018-11-10 11:01] VITALS: BMI 24.8
[2019-01-05 16:18] LABS: Absolute Lymphocyte Count 3.61 X10^3/ul (0.83-4.51); Absolute Neutrophil Count 4.2 X10^3/uL (2.0-7.7); Basophil# 0.06 X10^3/uL; Basophil% 0.7 % (0-1); Eosinophil# 0.25 X10^3/uL; Eosinophils% 2.8 % (0-5); Hematocrit 39.4 % (37-47); Lymphocyte # 3.61 X10^3/ul (4.0); Lymphocyte % 40.7 % (19-41); Mean Corp Hgb Conc 30.5 g/gl (32-36); Mean Corpuscular Hgb 24.5 pg (27.0-32.0); Mean Corpuscular Volume 80.6 fL (81-99); Mean Platelet Vol. 9.1 fl (6.2-12.0); Monocyte% 7.9 % (0-10); Neutrophil # 4.21 X10^3/uL (2.7-7.7); Neutrophil % 47.6 % (47-70); Platelet Count 294 K/mm3 (150-450); RBC Distribution Width CV 16.4 % (11.6-14.6); Red Blood Count 4.89 M/mm3 (4.2-5.4); White Blood Count 8.9 K/mm3 (4.4-11.0)
[2019-01-05 16:19] LABS: POSITIVE COUNT NO; POSITIVE DIFFERENTIAL NO; POSITIVE MORPHOLOGY NO
[2019-01-05 16:56] LABS: ALB/GLOB Ratio 0.8 RATIO (0.9-2.4); AST(SGOT) 13 U/L (15-37); Alanine Aminotransfer ALT/SGPT 17 U/L (13-56); Albumin, Serum 3.6 g/dL (3.2-5.0); Alkaline Phosphatase 116 U/L (45-117); Anion Gap 11 (5-15); BUN 13 mg/dL (7-18); Chloride 103 mmol/L (98-107); Creatinine, Serum 0.81 mg/dL (0.55-1.02); EST Glomerular Filtration Rate 76 mL/min (>60); Est Glom Filt Rate - Afr Amer 92 mL/min (>60); Ferritin 9 ng/mL (8-252); Globulin 4.5 g/dL (2.2-4.2); Glucose 84 mg/dL (74-106); Iron 30 ug/dL (50-170); Protein, Total 8.1 g/dL (6.4-8.2); Sodium Level 139 mmol/L (136-145)
[2019-01-07 11:07] LABS: Carcinoembryonic Antigen 10.2 ng/mL (0.0-4.7)
== END ==
PROVIDERS: Family Provider Family Medicine; PCP Family Medicine; Referring Provider Internal Medicine Medical Oncology; Visit Provider Internal Medicine Medical Oncology
DX: D12.6 Benign neoplasm of colon, unspecified (principal); R79.89 Other specified abnormal findings of blood chemistry
CPT/HCPCS: 36415; 80053; 82378; 82728; 82746; 83540; 85025

== ENCOUNTER → 2019-02-01 11:29 | Outpatient (CLI) | payer MEDICARE, MEDICAID, SELFPAY ==
[2019-01-10 13:43] VITALS: BMI 26.5
[2019-02-01 12:27] LABS: Erythrocyte Sedimentation Rate 63 mm/hr (0-30)
[2019-02-01 12:50] LABS: ALB/GLOB Ratio 0.9 RATIO (0.9-2.4); AST(SGOT) 18 U/L (15-37); Alanine Aminotransfer ALT/SGPT 16 U/L (13-56); Albumin, Serum 3.5 g/dL (3.2-5.0); Alkaline Phosphatase 116 U/L (45-117); Anion Gap 8 (5-15); BUN 8 mg/dL (7-18); BUN/Creat Ratio 9.6 RATIO (10-20); CRP 6.79 mg/L (0.0-3.0); Calcium,Total 8.9 mg/dL (8.5-10.1); Chloride 101 mmol/L (98-107); Cholesterol 115 mg/dL (200); Creatinine, Serum 0.84 mg/dL (0.55-1.02); EST Glomerular Filtration Rate 73 mL/min (>60); Est Glom Filt Rate - Afr Amer 89 mL/min (>60); Globulin 3.7 g/dL (2.2-4.2); Glucose 151 mg/dL (74-106); High Density Lipoprotein 37 mg/dL; Potassium 4.5 mmol/L (3.5-5.1); Protein, Total 7.2 g/dL (6.4-8.2); Sodium Level 137 mmol/L (136-145); Triglycerides 182 mg/dL; Very Low Density Lipoprotein 36 mg/dL (5-40)
== END ==
PROVIDERS: Family Provider Family Medicine; PCP Family Medicine; Referring Provider Family Medicine; Visit Provider Family Medicine
DX: R70.0 Elevated erythrocyte sedimentation rate (principal); E11.9 Type 2 diabetes mellitus without complications
CPT/HCPCS: 36415; 80053; 80061; 85652; 86140

== ENCOUNTER 2019-03-13 18:32 | Observation (INO) | payer MEDICARE, MEDICAID, SELFPAY ==
[2019-01-10 13:43] VITALS: BMI 26.5
[2019-03-13 18:34] VITALS: BP 139/66; PULSE 82; RESP 15; TEMP 36.7; O2SAT 97; BMI 27.8
--- NOTE | 2019-03-13 19:11 | EKG12_ITS ---
Test Reason : CP Blood Pressure : / mmHG Vent. Rate : 085 BPM Atrial Rate : 085 BPM P-R Int : 132 ms QRS Dur : 102 ms QT Int : 394 ms P-R-T Axes : 066 071 076 degrees QTc Int : 468 ms Normal sinus rhythm Normal ECG Confirmed by CRISTIN ROWAN, CHRISTOPHER ([id number]), purchase request editor LAW WATKINS ([id number]) on 03/15/2019 9:34:30 AM Referred By: WALTER/[place] Confirmed By:CHRISTOPHER AMARAL MD
[2019-03-13 19:14] VITALS: O2SAT 94
--- NOTE | 2019-03-13 19:14 | ED.VISSUMM ---
- ER Visit Summary Date of Service: 03/13/19 Chief Complaint: Periodic chest discomfort History of Present Illness: The patient is a 63 F who presents for episodes of chest discomfort. Patient states she has been having 1 month of sensations of adrenaline flushes in which she has chest discomfort, dizziness, sensation she is going to pass out, and diaphoresis. Episodes last up to 2 minutes. She has had increased in these episodes over the last week. Today she vomited twice, associated with the chest discomfort/flushing episodes. Last episode was 1 hour prior and at that time patient called EMS. She was given aspirin in route. She denies fever, visual changes, shortness of breath, cough, recent illness. 2 weeks ago she was taken off her ropinirole. She is on escitalopram but has not missed any doses. She has history of 2 prior MIs and diabetes. She denies alcohol or tobacco use. History of diabetes and hypertension. Physical Examination: Vital signs: afebrile, hemodynamically stable, no hypoxia on room air General: well nourished, well developed, in no distress Skin: warm, dry, no rash, no pallor HEENT: normocephalic and atraumatic; PERRL, EOMI, moist mucous membranes Cardiovascular: regular rate and rhythm without murmurs, no peripheral edema, 2+ pulses all distal extremities, clubbing of the nails Respiratory: No increased work of breathing, lungs are clear to auscultation bilaterally, no rales, rhonchi or wheezing Abdominal: Abdomen is soft, nontender with normoactive bowel sounds, no guarding or rebound, no masses MSK: Moves all extremities, no deformities, normal strength Neuro: Awake and alert, oriented ?4. No facial droop, sensation and motor function intact and symmetric Test Results: Abnormal Lab Results 03/13/19 03/13/19 16:00 16:00 WBC 10.2 RBC 4.51 Hgb 10.9 L Hct 35.7 L MCV 79.2 L MCH 24.2 L MCHC 30.5 L RDW 16.0 H RDW Differential 46.5 H Plt Count 284 MPV 9.1 Immature Gran % (Auto) 0.500 Neut % (Auto) 81.4 H Lymph % (Auto) 13.0 L Mathews % (Auto) 4.5 Eos % (Auto) 0.2 Baso % (Auto) 0.4 Absolute Neuts (auto) 8.3 H Absolute Lymphs (auto) 1.33 Total Counted Not Reportable Sodium 136 Potassium 4.0 Chloride 100 Carbon Dioxide 27.0 Anion Gap 9 BUN 9 Creatinine 0.84 Estim Creat Clear Calc 59.96 Est GFR (MDRD) Af Amer 88 Est GFR (MDRD) Non-Af 72 BUN/Creatinine Ratio 10.7 Glucose 201 H Calcium 8.4 L Magnesium 2.0 Troponin I 0.026 TSH 1.34 Clinical Impression(s) from Imaging Studies Chest X-Ray 03/13/19 19:21 IMPRESSION: Degenerative changes, as described above. No demonstrated acute cardiopulmonary process. Electronically Signed: Eduar Sanderson MD at 19:56 EDT , Service support , Medications Given Discontinued Medications Sodium Chloride () 1,000 mls @ 1,000 mls/hr IV .Q1H ONE Stop: 03/13/19 20:10 Last Admin: 03/13/19 19:18 Dose: 1,000 mls/hr Emergency Department Course and Treatment: Patient presents for evaluation of flushing episodes with associated chest discomfort that is substernal, heart racing, sweating, dizziness, and sensation she is going to pass out. Patient denies missing any doses of her antidepressant, thus SSRI discontinuation syndrome is unlikely the cause of her symptoms. She does have a significant cardiac history and risk factors, thus chest pain workup was performed. Patient already received aspirin prehospital. EKG showed a sinus rhythm with no ischemic changes. Patient's troponin within normal limits at 0.026. TSH within normal limits. No electrolyte derangements. Patient had a few more episodes of the chest discomfort with associated dizziness and flushing/sweating. Given patient's significant cardiac history and risk factors, she will be admitted as observation status for further chest pain rule out. Patient agreed with this plan. She was a symptomatic at time of reevaluation. Treatment Plan: [] Disposition: [] Impression: Chest discomfort, history of coronary artery disease This note was generated with Joinnusation software. It may contain incorrect words, spelling, and punctuation that were not noted in review of the chart prior to signing ED Disposition - Plan for ED Patient: Disposition: Acute Care Hospital [facility]
--- NOTE | 2019-03-13 19:17 | ED.DCSUM_ITS ---
- ER Visit Summary Date of Service: 03/13/19 Chief Complaint: Periodic chest discomfort History of Present Illness: The patient is a 63 F who presents for episodes of chest discomfort. Patient states she has been having 1 month of sensations of adrenaline flushes in which she has chest discomfort, dizziness, sensation she is going to pass out, and diaphoresis. Episodes last up to 2 minutes. She has had increased in these episodes over the last week. Today she vomited twice, associated with the chest discomfort/flushing episodes. Last episode was 1 hour prior and at that time patient called EMS. She was given aspirin in route. She denies fever, visual changes, shortness of breath, cough, recent illness. 2 weeks ago she was taken off her ropinirole. She is on escitalopram but has not missed any doses. She has history of 2 prior MIs and diabetes. She denies alcohol or tobacco use. History of diabetes and hypertension. Physical Examination: Vital signs: afebrile, hemodynamically stable, no hypoxia on room air General: well nourished, well developed, in no distress Skin: warm, dry, no rash, no pallor HEENT: normocephalic and atraumatic; PERRL, EOMI, moist mucous membranes Cardiovascular: regular rate and rhythm without murmurs, no peripheral edema, 2+ pulses all distal extremities, clubbing of the nails Respiratory: No increased work of breathing, lungs are clear to auscultation bilaterally, no rales, rhonchi or wheezing Abdominal: Abdomen is soft, nontender with normoactive bowel sounds, no guarding or rebound, no masses MSK: Moves all extremities, no deformities, normal strength Neuro: Awake and alert, oriented ?4. No facial droop, sensation and motor function intact and symmetric Test Results: Abnormal Lab Results 03/13/19 03/13/19 16:00 16:00 WBC 10.2 RBC 4.51 Hgb 10.9 L Hct 35.7 L MCV 79.2 L MCH 24.2 L MCHC 30.5 L RDW 16.0 H RDW Differential 46.5 H Plt Count 284 MPV 9.1 Immature Gran % (Auto) 0.500 Neut % (Auto) 81.4 H Lymph % (Auto) 13.0 L Mcclain % (Auto) 4.5 Eos % (Auto) 0.2 Baso % (Auto) 0.4 Absolute Neuts (auto) 8.3 H Absolute Lymphs (auto) 1.33 Total Counted Not Reportable Sodium 136 Potassium 4.0 Chloride 100 Carbon Dioxide 27.0 Anion Gap 9 BUN 9 Creatinine 0.84 Estim Creat Clear Calc 59.96 Est GFR (MDRD) Af Amer 88 Est GFR (MDRD) Non-Af 72 BUN/Creatinine Ratio 10.7 Glucose 201 H Calcium 8.4 L Magnesium 2.0 Troponin I 0.026 TSH 1.34 Clinical Impression(s) from Imaging Studies Chest X-Ray 03/13/19 19:21 IMPRESSION: Degenerative changes, as described above. No demonstrated acute cardiopulmonary process. Electronically Signed: Eduar Sanderson MD at 19:56 EDT , Service support , Medications Given Discontinued Medications Sodium Chloride () 1,000 mls @ 1,000 mls/hr IV .Q1H ONE Stop: 03/13/19 20:10 Last Admin: 03/13/19 19:18 Dose: 1,000 mls/hr Emergency Department Course and Treatment: Patient presents for evaluation of f lushing episodes with associated chest discomfort that is substernal, heart racing, sweating, dizziness, and sensation she is going to pass out. Patient denies missing any doses of her antidepressant, thus SSRI discontinuation syndrome is unlikely the cause of her symptoms. She does have a significant cardiac history and risk factors, thus chest pain workup was performed. Patient already received aspirin prehospital. EKG showed a sinus rhythm with no ischemic changes. Patient's troponin within normal limits at 0.026. TSH within normal limits. No electrolyte derangements. Patient had a few more episodes of the chest discomfort with associated dizziness and flushing/sweating. Given patient's significant cardiac history and risk factors, she will be admitted as observation status for further chest pain rule out. Patient agreed with this plan. She was a symptomatic at time of reevaluation. Treatment Plan: [] Disposition: [] Impression: Chest discomfort, history of coronary artery disease This note was generated with CardCash.comation software. It may contain incorrect words, spelling, and punctuation that were not noted in review of the chart prior to signing ED Disposition - Plan for ED Patient: Disposition: Acute Care [facility]
[2019-03-13] MEDS: 0.9% Normal Saline 1,000 ML 1000 ML IV (19:18)
--- NOTE | 2019-03-13 19:21 | RAD_ITS ---
STUDY: X-RAY CHEST REASON FOR EXAM: Female, 63 years old. Chest pain TECHNIQUE: PA and lateral views of the chest. COMPARISON: November 30, 2018.. FINDINGS: There are monitoring devices. There are fibrotic densities and granulomatous calcifications of the lungs. There is no demonstrated pleural abnormality. Sternal cerclage wires are present from a prior sternotomy. Normal mediastinum and pili. Normal visualized pulmonary arteries. There is atherosclerotic calcification of the aortic arch with tortuosity. There is demineralization of the osseous structures. Normal visualized ribs, clavicles, and shoulders. There is no demonstrated abnormality of the visualized soft tissue structures of the upper abdomen. RAD/Chest PA and Lateral IMPRESSION: Degenerative changes, as described above. No demonstrated acute cardiopulmonary process. Electronically Signed: Eduar Sanderson MD at 19:56 EDT , Service support ,
[2019-03-13 19:44] LABS: Anion Gap 9 (5-15); BUN 9 mg/dL (7-18); BUN/Creat Ratio 10.7 RATIO (10-20); Calcium,Total 8.4 mg/dL (8.5-10.1); Chloride 100 mmol/L (98-107); Creatinine, Serum 0.84 mg/dL (0.55-1.02); EST Glomerular Filtration Rate 72 mL/min (>60); Est Glom Filt Rate - Afr Amer 88 mL/min (>60); Estimated Creatinine Clearance 59.96 ml/min; Glucose 201 mg/dL (74-106); Sodium Level 136 mmol/L (136-145); Thyroid Stim Hormone (TSH) 1.34 uIU/mL (0.358-3.74)
[2019-03-13 20:15] LABS: Absolute Lymphocyte Count 1.33 X10^3/ul (0.83-4.51); Absolute Neutrophil Count 8.3 X10^3/uL (2.0-7.7); Basophil# 0.04 X10^3/uL; Basophil% 0.4 % (0-1); Eosinophil# 0.02 X10^3/uL; Eosinophils% 0.2 % (0-5); Hematocrit 35.7 % (37-47); Hemoglobin 10.9 g/dl (12.0-15.0); Lymphocyte # 1.33 X10^3/ul (4.0); Mean Corp Hgb Conc 30.5 g/gl (32-36); Mean Corpuscular Hgb 24.2 pg (27.0-32.0); Mean Corpuscular Volume 79.2 fL (81-99); Mean Platelet Vol. 9.1 fl (6.2-12.0); Monocyte# 0.46 X10^3/uL; Monocyte% 4.5 % (0-10); Neutrophil # 8.31 X10^3/uL (2.7-7.7); Neutrophil % 81.4 % (47-70); Platelet Count 284 K/mm3 (150-450); RBC Distribution Width SD 46.5 fl (35.1-43.9); Red Blood Count 4.51 M/mm3 (4.2-5.4); White Blood Count 10.2 K/mm3 (4.4-11.0)
[2019-03-13 20:16] LABS: POSITIVE COUNT NO; POSITIVE DIFFERENTIAL NO; POSITIVE MORPHOLOGY NO
[2019-03-13 20:32] VITALS: BP 142/49; PULSE 80; RESP 18; O2SAT 95
[2019-03-13 21:32] VITALS: BP 128/50; PULSE 68; RESP 18; O2SAT 98
--- NOTE | 2019-03-13 21:35 | PCM.HP.STD ---
Problem List (1) Pre-syncope Status: Acute (2) CAD (coronary artery disease) of artery bypass graft Status: Acute History of Present Illness Date of Admission: 03/13/19 Chief Complaint: presyncope The patient is a 63 year old F with a significant history of CAD status post CABG 12 years ago, coronary stent 3 years ago; hypertension; diabetes who presented with progressively worsening symptom of feeling flushed x 1 month.. Further, she had light headedness and felt like she was going to pass out. Because of her symptoms she is scared to drive. Also she feels palpitations in her neck. Because her symptoms was getting more frequent she came to the emergency department. Past Medical History Past Medical History (Chronic Problems): Chronic Problems (Last Reviewed 03/14/19 @ 06:01 by Pablo Kumar MD) Lung nodule (Chronic) Abnormal laboratory test (Chronic) History of colonic polyps (Chronic) Medical History: Medical History (Last Reviewed 03/14/19 @ 06:01 by Pablo Kumar MD) Tubular adenoma of colon (Resolved) D12.6 CAD (coronary artery disease) I25.10 Diabetes E11.9 Diarrhea R19.7 Elevated hemoglobin A1c R73.09 History of hysterectomy Z98.890, Z90.710 Hyperlipemia E78.5 Low oxygen saturation R79.81 Using O2 at night. Nausea R11.0 Osteoarthritis M19.90 RLS (restless legs syndrome) G25.81 Reflux esophagitis K21.0 Ventral hernia K43.9 w/ mesh, midline Allergies codeine Allergy (Verified 03/13/19 18:37) Hives fluticasone propionate [From Flonase] Allergy (Verified 03/13/19 18:37) Hives mometasone furoate [From Nasonex] Allergy (Verified 03/13/19 18:37) Hives Penicillins Allergy (Verified 03/13/19 18:37) Hives sitagliptin phosphate [From Januvia] Allergy (Verified 03/13/19 18:37) Hives Sulfa (Sulfonamide Antibiotics) Allergy (Verified 03/13/19 18:37) Hives tramadol Allergy (Verified 03/13/19 18:37) Hives venlafaxine HCl [From Effexor] Allergy (Verified 03/13/19 18:37) Hives cortisone Adverse Reaction (Verified 03/13/19 18:37) Other desvenlafaxine succinate [From Pristiq] Adverse Reaction (Verified 03/13/19 18:37) Other fluoxetine HCl [From Prozac] Adverse Reaction (Verified 03/13/19 18:37) Vomiting gabapentin [From Neurontin] Adverse Reaction (Verified 03/13/19 18:37) Vomiting hydrochlorothiazide Adverse Reaction (Verified 03/13/19 18:37) Other hydrocodone bitartrate [From Vicodin] Adverse Reaction (Verified 03/13/19 18:37) Vomiting lisinopril Adverse Reaction (Verified 03/13/19 18:37) Other losartan [Losartan] Adverse Reaction (Verified 03/13/19 18:37) Other oxycodone HCl [From OxyContin] Adverse Reaction (Verified 03/13/19 18:37) Other pioglitazone HCl [From Actos] Adverse Reaction (Verified 03/13/19 18:37) Vomiting propoxyphene napsylate [From Darvocet-N] Adverse Reaction (Verified 03/13/19 18:37) Vomiting tizanidine Adverse Reaction (Verified 03/13/19 18:37) Other Home Medications: Ambulatory Orders Medication Instructions Recorded Aspirin [Aspirin, Baby] 81 mg PO DAILY@0800 01/25/16 atorvastatin 40 mg tablet 40 mg PO QDAY 12/03/17 escitalopram 10 mg tablet 10 mg PO QDAY 12/03/17 Omeprazole Magnesium [Prilosec Otc] 40 mg PO DAILY 12/29/17 Glimepiride 1 tab PO DAILY 03/13/19 Tradjenta 1 tab PO DAILY 03/13/19 Cholecalciferol (VIT D3) [Vitamin 2,000 unit PO DAILY 03/14/19 D] Surgical History: Surgical History (Last Reviewed 03/14/19 @ 06:01 by Pablo Kumar MD) Abnormal colonoscopy Onset Date: ~01/10/18 R93.3 History of appendectomy Z98.890, Z90.49 Open History of arthroscopy of right knee Z98.890 x3 History of bilateral carpal tunnel release Z98.890 History of coronary artery bypass graft Z95.1 x4 History of esophagogastroduodenoscopy (EGD) Z98.890 2010 History of inguinal hernia repair, bilateral Z98.890, Z87.19 History of laparoscopy Z98.890 x3 History of rotator cuff surgery Z98.890 Hx of colonoscopy Z98.890 2011 History of cholecystectomy Z98.890, Z90.49 open Status post laparoscopic cholecystectomy Z90.49 Lives: With Family Smoking Status: Former smoker Alcohol: None - *Family History Maternal Family History: Family History (Last Reviewed 03/14/19 @ 06:01 by Pablo Kumar MD) Father Cancer Grandfather Cancer Grandmother Cancer Other Heart disease Review of Systems Constitutional: Reports: Anorexia. Denies: Chills, Fever, Weight Change HEENT: Denies: Head Aches, Sinus Congestion, Sinus Drainage Cardiovascular: Reports: Light Headedness, Palpitations. Denies: Chest Pain Respiratory: Denies: Cough, Shortness of breath at rest, Sputum production Gastrointestinal: Reports: Nausea, Vomiting. Denies: Abdominal Pain Genitourinary: Denies: Dysuria Musculoskeletal: Denies: Joint Pain, Joint Tenderness Skin: Denies: Rash, Wounds Neurological: Denies: Numbness, Tingling, Focal weakness Psychiatric: Denies: Anxiety, Depression, Homicidal Ideations, Suicidal Ideations Hematologic/ Lymphatic: Denies: Easy Bruising, Easy Bleeding VTE Information - Inpt Only VTE Present on Admission: No VTE Mechan Device Prophylaxis: None VTE Pharm Prophylaxis ordered?: Yes Patient Problems: Active and Suspected Problems (Last Reviewed 03/14/19 @ 06:01 by Pablo Kumar MD) Pre-syncope (Acute) CAD (coronary artery disease) of artery bypass graft (Acute) - Physical Exam General: Alert, Oriented x3, Cooperative HEENT: Atraumatic, PERRLA, EOMI, Normocephalic Neck: Supple, No JVD, Negative Carotid Bruits Lungs: Clear to auscultation, Normal air movement Cardiovascular: Regular rate, No murmurs Abdomen: Bowel Sounds Present, Soft, Non Tender Extremities: No edema, Capillary Refill Less than 3 Seconds Skin: No rashes, No breakdown Musculoskeletal: No Tenderness to Palpation of Joints or Extremities Neurological: Cranial nerves II-XII grossly intact Psych/Mental Status: Normal Affect, Appropriate Vital Signs Temp Pulse Resp BP Pulse Ox 98.1 F 68 18 128/50 H 98 03/13/19 18:34 03/13/19 21:32 03/13/19 21:32 03/13/19 21:32 03/13/19 21:32 Oxygen Delivery Method Room Air Weight: 73.482 kg Body Mass Index (BMI) 27.8 Laboratory Tests Past 24 Hrs 03/13/19 03/13/19 16:00 16:00 WBC 10.2 RBC 4.51 Hgb 10.9 L Hct 35.7 L MCV 79.2 L MCH 24.2 L MCHC 30.5 L RDW 16.0 H RDW Differential 46.5 H Plt Count 284 MPV 9.1 Immature Gran % (Auto) 0.500 Neut % (Auto) 81.4 H Lymph % (Auto) 13.0 L [place] % (Auto) 4.5 Eos % (Auto) 0.2 Baso % (Auto) 0.4 Absolute Neuts (auto) 8.3 H Absolute Lymphs (auto) 1.33 Total Counted Not Reportable Sodium 136 Potassium 4.0 Chloride 100 Carbon Dioxide 27.0 Anion Gap 9 BUN 9 Creatinine 0.84 Estim Creat Clear Calc 59.96 Est GFR (MDRD) Af Amer 88 Est GFR (MDRD) Non-Af 72 BUN/Creatinine Ratio 10.7 Glucose 201 H Calcium 8.4 L Magnesium 2.0 Troponin I 0.026 TSH 1.34 Assessment/Plan All Active Problems (Last Reviewed 03/14/19 @ 06:01 by Pablo Kumar MD) Iron deficiency (Acute) Pre-syncope (Acute) CAD (coronary artery disease) of artery bypass graft (Acute) Tubular adenoma of colon (Resolved) The patient is a 63 year old F with a significant history of CAD status post CABG 12 years ago, coronary stent 3 years ago; hypertension; diabetes who presented with progressively worsening symptom of feeling flushed, light headedness, palpitations and presyncope. Presyncope. Likely vasovagal. EKG independently reviewed confirms normal sinus rhythm Will place on PCU with telemetry Dobutamine Echocardiogram ordered. Trend troponin. Check lipid panel Hypertension On presentation her blood pressure was not within goal Review of home medications shows that patient is not on any blood pressure control medications. PRN Hydralazine ordered. If her blood pressure continue not to be within goal consider starting patient on scheduled blood pressure medication. Diabetes mellitus On presentation her blood glucose was not within goal Amaryl continued Hold home Tradjenta since home dose has not been clarified at this time. Correction scale insulin ordered. DVT Prophylaxis Subcutaneous Lovenox ordered. Code Visit OBSV E&M: 14709 Initial observation care L3
[2019-03-13 22:45] VITALS: BP 151/61; PULSE 71; RESP 18; O2SAT 99
[2019-03-14] VITALS (10 sets, daily range): BP systolic 138–165; BP diastolic 61–78; PULSE 65–86; RESP 16–18; TEMP 36.7–37; O2SAT 95–99; BMI 27.6
[2019-03-14] MEDS: 0.9% Normal Saline 1,000 ML 100 ML IV (01:02)
[2019-03-14 04:01] LABS: Absolute Lymphocyte Count 2.43 X10^3/ul (0.83-4.51); Absolute Neutrophil Count 6.4 X10^3/uL (2.0-7.7); Basophil# 0.05 X10^3/uL; Basophil% 0.5 % (0-1); Eosinophil# 0.15 X10^3/uL; Eosinophils% 1.5 % (0-5); Hematocrit 34.3 % (37-47); Hemoglobin 10.5 g/dl (12.0-15.0); Lymphocyte # 2.43 X10^3/ul (4.0); Mean Corp Hgb Conc 30.6 g/gl (32-36); Mean Corpuscular Hgb 24.1 pg (27.0-32.0); Mean Corpuscular Volume 78.7 fL (81-99); Mean Platelet Vol. 8.9 fl (6.2-12.0); Monocyte# 0.68 X10^3/uL; Neutrophil # 6.37 X10^3/uL (2.7-7.7); Neutrophil % 65.7 % (47-70); POSITIVE COUNT NO; POSITIVE DIFFERENTIAL NO; POSITIVE MORPHOLOGY NO; Platelet Count 252 K/mm3 (150-450); Red Blood Count 4.36 M/mm3 (4.2-5.4); White Blood Count 9.7 K/mm3 (4.4-11.0)
[2019-03-14 04:04] LABS: International Normalized Ratio 1.1; Prothrombin Time (Protime)PT. 14.2 SECONDS (11.7-14.9)
[2019-03-14 04:05] LABS: Partial Thromboplast Time 25.5 Seconds (24.1-36.2)
[2019-03-14 04:20] LABS: Anion Gap 7 (5-15); BUN 8 mg/dL (7-18); BUN/Creat Ratio 10.9 RATIO (10-20); Calcium,Total 8.3 mg/dL (8.5-10.1); Chloride 104 mmol/L (98-107); Creatinine, Serum 0.74 mg/dL (0.55-1.02); EST Glomerular Filtration Rate 85 mL/min (>60); Est Glom Filt Rate - Afr Amer 103 mL/min (>60); Estimated Creatinine Clearance 68.07 ml/min; Glucose 152 mg/dL (74-106); Potassium 3.4 mmol/L (3.5-5.1); Sodium Level 139 mmol/L (136-145); Thyroid Stim Hormone (TSH) 1.95 uIU/mL (0.358-3.74)
--- NOTE | 2019-03-14 04:20 | EKG12_ITS ---
Test Reason : CP ADMISSION Blood Pressure : / mmHG Vent. Rate : 061 BPM Atrial Rate : 061 BPM P-R Int : 134 ms QRS Dur : 104 ms QT Int : 456 ms P-R-T Axes : 059 083 080 degrees QTc Int : 459 ms Normal sinus rhythm with sinus arrhythmia Normal ECG When compared with ECG of 13-MAR-2019 18:37, MANUAL COMPARISON REQUIRED, DATA IS UNCONFIRMED Confirmed by PETRA ROWAN, GRECIA ([id number]), features editor LAW WATKINS ([id number]) on 03/16/2019 9:53:52 AM Referred By: BLAISE Confirmed By:GRECIA LAMBERT MD
[2019-03-14] MEDS: Aspirin 81 MG TAB.CHEW PO (05:34)
--- NOTE | 2019-03-14 06:00 | EKG12_ITS ---
Test Reason : AM EKG Blood Pressure : / mmHG Vent. Rate : 076 BPM Atrial Rate : 076 BPM P-R Int : 138 ms QRS Dur : 102 ms QT Int : 426 ms P-R-T Axes : 067 076 078 degrees QTc Int : 479 ms Normal sinus rhythm Nonspecific ST abnormality Abnormal ECG When compared with ECG of 14-MAR-2019 00:46, MANUAL COMPARISON REQUIRED, DATA IS UNCONFIRMED Confirmed by PETRA ROWAN, GRECIA ([id number]), city editor LAW WATKINS ([id number]) on 03/16/2019 9:53:39 AM Referred By: BLAISE Confirmed By:GRECIA LAMBERT MD
[2019-03-14 06:51] LABS: Bedside Glucose 155 mg/dL (70-110)
[2019-03-14 07:34] LABS: Cholesterol 108 mg/dL (200); High Density Lipoprotein 37 mg/dL; Triglycerides 117 mg/dL; Very Low Density Lipoprotein 23 mg/dL (5-40)
--- NOTE | 2019-03-14 08:00 | STE_ITS ---
Reason For Study: Presyncope; Chest Pain Stress Results Protocol: Dobutamine Stress Echo Maximum Predicted HR: 158 bpm Target HR: 134 bpm % Maximum Predicted HR: 97 % DurationHeart Rate Stage (mm:ss) (bpm) BP Comment Baseline 68 138/782/10 Chest Pain DSE 10 MCG 3:00 71 133/562/10 Chest Pain DSE 20 MCG 3:00 99 134/522/10 Chest Pain DSE 30 MCG 3:00 120 145/522/10 Chest Pain DSE 40 MCG 5:16 153 124/483/10 Chest Pain; Atropine 0.5 MG IVP Recovery 97 115/512/10 Chest Pain Stress Duration: 14:16 mm:ss Maximum Stress HR: 153 bpm METS: 1 Baseline Echocardiogram Findings Stress Echo Wall motion Data Resting WM Intermediate WM Stress WM Resting Wall Motion Wall Motion Int. Wall Motion Stress All segments Normal. All segments Hyperkinetic. All segments Hyperkinetic. Ejection Fraction 60 %. Ejection Fraction 65 %. Ejection Fraction 75 %. Stress Results Arrhythmias: Rare PVC during infusion Stopped secondary to: Target heart rate achieved. EKG Data Baseline ECG: Normal Sinus Rhythm. Peak pharmacologic ECG: No Obvious ECG Changes. Symptoms with Stress No complaint of chest discomfort during pharmacologic infusion or recovery. Interpretation Summary Negative (Adequate) Stress Echocardiogram. Ordering Physician: Pablo Kumar Referring Physician: Gamaliel Young Performed By: Vi Chavez RDCS
[2019-03-14] MEDS: Escitalopram Oxalate 10 MG Tablet PO (11:53)
[2019-03-14] MEDS: Pantoprazole Sodium 40 MG Tablet PO (11:53)
[2019-03-14] MEDS: Glimepiride 4 MG Tablet PO (11:54)
[2019-03-14 12:01] LABS: Bedside Glucose 152 mg/dL (70-110)
--- NOTE | 2019-03-14 12:42 | DCINST_ITS ---
- Discharge Diagnoses Current Active Problems: Current Active and Chronic Problems (Last Reviewed 03/14/19 @ 06:01 by Pablo Kumar MD) Pre-syncope (Acute) CAD (coronary artery disease) of artery bypass graft (Acute) You will use the following diet at home:: Calorie/Carbohydrate Controlled (specify 1200, 1400, etc) - 1800 calorie Your food should be the consistency of: Regular Your liquids should be the consistency of: Regular/Thin Discharge Activity: Return to Normal Activity Weight Bearing Status: Weight bearing as tolerated Allergies/Adverse Reactions: Allergies codeine Allergy (Verified 03/13/19 18:37) Hives fluticasone propionate [From Flonase] Allergy (Verified 03/13/19 18:37) Hives mometasone furoate [From Nasonex] Allergy (Verified 03/13/19 18:37) Hives Penicillins Allergy (Verified 03/13/19 18:37) Hives sitagliptin phosphate [From Januvia] Allergy (Verified 03/13/19 18:37) Hives Sulfa (Sulfonamide Antibiotics) Allergy (Verified 03/13/19 18:37) Hives tramadol Allergy (Verified 03/13/19 18:37) Hives venlafaxine HCl [From Effexor] Allergy (Verified 03/13/19 18:37) Hives cortisone Adverse Reaction (Verified 03/13/19 18:37) Other desvenlafaxine succinate [From Pristiq] Adverse Reaction (Verified 03/13/19 18:37) Other fluoxetine HCl [From Prozac] Adverse Reaction (Verified 03/13/19 18:37) Vomiting gabapentin [From Neurontin] Adverse Reaction (Verified 03/13/19 18:37) Vomiting hydrochlorothiazide Adverse Reaction (Verified 03/13/19 18:37) Other hydrocodone bitartrate [From Vicodin] Adverse Reaction (Verified 03/13/19 18:37) Vomiting lisinopril Adverse Reaction (Verified 03/13/19 18:37) Other losartan [Losartan] Adverse Reaction (Verified 03/13/19 18:37) Other oxycodone HCl [From OxyContin] Adverse Reaction (Verified 03/13/19 18:37) Other pioglitazone HCl [From Actos] Adverse Reaction (Verified 03/13/19 18:37) Vomiting propoxyphene napsylate [From Darvocet-N] Adverse Reaction (Verified 03/13/19 18:37) Vomiting tizanidine Adverse Reaction (Verified 03/13/19 18:37) Other Medications to take at Discharge Aspirin [Aspirin, Baby] 81 mg PO DAILY@0800 01/25/16 atorvastatin 40 mg tablet 40 mg PO QDAY 12/03/17 escitalopram 10 mg tablet 10 mg PO QDAY 12/03/17 Omeprazole Magnesium [Prilosec Otc] 40 mg PO DAILY 12/29/17 Glimepiride 1 tab PO DAILY 03/13/19 Tradjenta 1 tab PO DAILY 03/13/19 Cholecalciferol (VIT D3) [Vitamin D3] 2,000 unit PO DAILY 03/14/19 Primary Care Physician: David Sy MD [Primary Care Provider] - Please follow up with your Primary Care Physician in: in 2 weeks Test Results: Test results from this visit will be discussed in further detail at your follow- up appointment, if applicable.
--- NOTE | 2019-03-15 08:30 | PCM.DC.SUM ---
Discharge Date and Diagnosis Date of Admission: 03/13/19 Date of Discharge: 03/14/19 - Primary Discharge Diagnosis #1 noncardiac chest pain #2 type 2 diabetes #3 hypokalemia - Secondary Discharge Diagnosis Chronic Problems (Last Reviewed 03/14/19 @ 06:01 by Pablo Kumar MD) Lung nodule (Chronic) Abnormal laboratory test (Chronic) History of colonic polyps (Chronic) Hospital Course and Treatment Procedures: - - Stress echo Summary of Care Provided: The patient is a 63 year old F who was seen in the emergency room at [facility] with complaints of lightheadedness and chest discomfort substernal in nature.. Patient also complained of palpitations in her neck. Patient's labs were remarkable for a glucose of 201, troponin was normal. Patient was placed in observation status on PCU, her troponins elevated slightly and she underwent a stress echocardiogram which was negative for reversible ischemia. On 03/14/19, patient was seen and examined: On examination she appeared in good health and spirits. Vital signs as documented. Skin warm and dry and without overt rashes. Neck without JVD. Lungs clear. Heart exam notable for regular rhythm, normal sounds and absence of murmurs, rubs or gallops. Abdomen unremarkable and without evidence of organomegaly, masses, or abdominal aortic enlargement. Extremities nonedematous. Neuro: Cranial nerves II through XII are grossly intact, no focal motor deficits were noted, sensation to light touch and pinprick is intact. Psych: Patient is alert and oriented x3, she does not appear anxious or depressed On 03/14/19, patient was seen and examined felt to be in stable condition for discharge home - Physical Exam Vital Signs Temp Pulse Resp BP Pulse Ox 98.6 F 78 16 144/70 H 95 03/14/19 09:21 03/14/19 12:00 03/14/19 09:21 03/14/19 09:21 03/14/19 09:21 Oxygen Flow Rate (L/min) 2.5 Oxygen Delivery Method Room Air Weight: 73 kg Body Mass Index (BMI) 27.6 Intake and Output for Last 24 Hours 03/13/19 03/14/19 03/15/19 23:59 23:59 23:59 Intake Total 1168 / 1168 Balance 1168 / 1168 POC Glucose 03/14/19 11:50 POC Glucose 152 H Discharge Activity: Return to Normal Activity Weight Bearing Status: Weight bearing as tolerated Home Medications: Medications to take at Discharge Aspirin [Aspirin, Baby] 81 mg PO DAILY@0800 01/25/16 atorvastatin 40 mg tablet 40 mg PO QDAY 12/03/17 escitalopram 10 mg tablet 10 mg PO QDAY 12/03/17 Omeprazole Magnesium [Prilosec Otc] 40 mg PO DAILY 12/29/17 Glimepiride 1 tab PO DAILY 03/13/19 Tradjenta 1 tab PO DAILY 03/13/19 Cholecalciferol (VIT D3) [Vitamin D3] 2,000 unit PO DAILY 03/14/19 Primary Care Physician: David Sy MD [Primary Care Provider] - Please follow up with your Primary Care Physician in: in 2 weeks Disposition: Home Minutes spent on discharge:: 32 Patient Condition:: Stable Medical Necessity - Tobacco Use Smoking Status: Former smoker Meaningful Use Info Meaningful Use Diagnoses (Choose all that apply): None applicable Code Visit OBSV E&M: 17000 Observation care discharge
== END 2019-03-14 12:41 | disposition home or self-care (01) ==
LOC: ED 19:49 → PCU 23:49
PROVIDERS: Admitting Provider Hospitalist; Emergency Provider Emergency Medicine; Family Provider Family Medicine; PCP Family Medicine; Visit Provider Internal Medicine
DX: R07.89 Other chest pain (principal); R55 Syncope and collapse; I25.2 Old myocardial infarction; E11.9 Type 2 diabetes mellitus without complications; I25.10 Atherosclerotic heart disease of native coronary artery without angina pectoris; I10 Essential (primary) hypertension; E78.5 Hyperlipidemia, unspecified; M19.90 Unspecified osteoarthritis, unspecified site; G25.81 Restless legs syndrome; E87.6 Hypokalemia; Z79.82 Long term (current) use of aspirin; Z79.899 Other long term (current) drug therapy; Z95.1 Presence of aortocoronary bypass graft; Z87.891 Personal history of nicotine dependence
CPT/HCPCS: 36415; 71046; 80048; 80061; 82962; 83735; 84443; 84484; 85025; 85610; 85730; 93005; 93017; 93350; 96360; 96361; 99218; 99285; J7030; J7040; A4216; G0378

== ENCOUNTER → 2019-04-26 | Outpatient (CLI) | payer MEDICARE, MEDICAID, SELFPAY ==
[2019-03-14 00:28] VITALS: BMI 27.6
[2019-04-26 16:04] LABS: Hematocrit 37.9 % (37-47); Hemoglobin 11.6 g/dl (12.0-15.0); Mean Corp Hgb Conc 30.6 g/gl (32-36); Mean Corpuscular Hgb 23.5 pg (27.0-32.0); Mean Corpuscular Volume 76.7 fL (81-99); Mean Platelet Vol. 9.5 fl (6.2-12.0); Platelet Count 354 K/mm3 (150-450); RBC Distribution Width CV 16.8 % (11.6-14.6); RBC Distribution Width SD 45.4 fl (35.1-43.9); Red Blood Count 4.94 M/mm3 (4.2-5.4); White Blood Count 8.9 K/mm3 (4.4-11.0)
[2019-04-26 16:08] LABS: Scan Indicated on CBC? Y/N NO
[2019-04-26 16:35] LABS: ALB/GLOB Ratio 0.9 RATIO (0.9-2.4); AST(SGOT) 20 U/L (15-37); Alanine Aminotransfer ALT/SGPT 18 U/L (13-56); Albumin, Serum 3.6 g/dL (3.2-5.0); Alkaline Phosphatase 122 U/L (45-117); Anion Gap 10 (5-15); BUN 8 mg/dL (7-18); BUN/Creat Ratio 8.4 RATIO (10-20); Calcium,Total 9.3 mg/dL (8.5-10.1); Chloride 102 mmol/L (98-107); Creatinine, Serum 0.95 mg/dL (0.55-1.02); EST Glomerular Filtration Rate 63 mL/min (>60); Est Glom Filt Rate - Afr Amer 77 mL/min (>60); Ferritin 12 ng/mL (8-252); Globulin 4.1 g/dL (2.2-4.2); Glucose 140 mg/dL (74-106); Iron 28 ug/dL (50-170); Potassium 4.4 mmol/L (3.5-5.1); Protein, Total 7.7 g/dL (6.4-8.2); Sodium Level 138 mmol/L (136-145)
== END | disposition home or self-care (01) ==
LOC: MFPLAB 14:19
PROVIDERS: Family Provider Family Medicine; PCP Family Medicine; Referring Provider Family Medicine; Visit Provider Family Medicine
DX: R07.9 Chest pain, unspecified (principal); D64.9 Anemia, unspecified
CPT/HCPCS: 36415; 80053; 82728; 83540; 84484; 85027

== ENCOUNTER → 2019-05-11 | Outpatient (CLI) | payer MEDICARE, MEDICAID, SELFPAY ==
[2019-03-14 00:28] VITALS: BMI 27.6
[2019-05-11 15:47] LABS: Absolute Lymphocyte Count 2.04 X10^3/ul (0.83-4.51); Absolute Neutrophil Count 5.1 X10^3/uL (2.0-7.7); Basophil# 0.04 X10^3/uL; Basophil% 0.5 % (0-1); Eosinophil# 0.16 X10^3/uL; Hematocrit 39.9 % (37-47); Hemoglobin 12.2 g/dl (12.0-15.0); Lymphocyte # 2.04 X10^3/ul (4.0); Mean Corp Hgb Conc 30.6 g/gl (32-36); Mean Corpuscular Hgb 24.1 pg (27.0-32.0); Mean Corpuscular Volume 78.9 fL (81-99); Mean Platelet Vol. 9.5 fl (6.2-12.0); Monocyte# 0.47 X10^3/uL; Neutrophil # 5.11 X10^3/uL (2.7-7.7); Neutrophil % 65.2 % (47-70); Platelet Count 319 K/mm3 (150-450); RBC Distribution Width SD 51.9 fl (35.1-43.9); Red Blood Count 5.06 M/mm3 (4.2-5.4); White Blood Count 7.8 K/mm3 (4.4-11.0)
[2019-05-11 15:49] LABS: POSITIVE COUNT NO; POSITIVE DIFFERENTIAL NO; POSITIVE MORPHOLOGY NO
== END | disposition home or self-care (01) ==
PROVIDERS: Family Provider Family Medicine; PCP Family Medicine; Referring Provider Family Medicine; Visit Provider Nurse Practitioner Family
DX: R53.83 Other fatigue (principal)
CPT/HCPCS: 36415; 85025

== ENCOUNTER → 2019-11-07 12:11 | Outpatient (CLI) | payer MEDICARE, MEDICAID, SELFPAY ==
[2019-07-26 14:20] VITALS: BMI 26.0
[2019-11-07 14:03] LABS: Ferritin 26 ng/mL (8-252); Iron 56 ug/dL (50-170)
== END ==
PROVIDERS: Family Provider Family Medicine; PCP Family Medicine; Visit Provider Family Medicine
DX: G25.81 Restless legs syndrome (principal)
CPT/HCPCS: 36415; 82728; 83540

== ENCOUNTER → 2019-11-15 15:36 | Outpatient (CLI) | payer MEDICARE, MEDICAID, SELFPAY ==
[2019-07-26 14:20] VITALS: BMI 26.0
[2019-11-15 17:40] LABS: Absolute Lymphocyte Count 2.44 X10^3/uL (0.83-4.51); Absolute Neutrophil Count 5.9 X10^3/uL (2.0-7.7); Basophil# 0.08 X10^3/uL; Basophil% 0.9 % (0-1); Eosinophil# 0.12 X10^3/uL; Eosinophils% 1.3 % (0-5); Hematocrit 42.3 % (37-47); Hemoglobin 13.3 g/dL (12.0-15.0); Lymphocyte # 2.44 X10^3/ul (4.0); Lymphocyte % 26.9 % (19-41); Mean Corp Hgb Conc 31.4 g/dL (32-36); Mean Corpuscular Hgb 27.7 pg (27.0-32.0); Mean Corpuscular Volume 87.9 fL (81-99); Mean Platelet Vol. 9.2 fl (6.2-12.0); Monocyte# 0.54 X10^3/uL; NRBC Flagged by Analyzer 0 % (0-5); Neutrophil # 5.85 X10^3/uL (2.7-7.7); Neutrophil % 64.6 % (47-70); Platelet Count 280 K/mm3 (150-450); RBC Distribution Width CV 14.5 % (11.6-14.6); RBC Distribution Width SD 46.6 fl (35.1-43.9); Red Blood Count 4.81 M/mm3 (4.2-5.4); White Blood Count 9.1 K/mm3 (4.4-11.0)
[2019-11-15 17:50] LABS: Erythrocyte Sedimentation Rate 62 mm/hr (0-30)
[2019-11-15 18:14] LABS: Vitamin B12 327 pg/mL (211-911)
[2019-11-15 18:20] LABS: Anion Gap 6 (5-15); BUN 10 mg/dL (7-18); BUN/Creat Ratio 10.9 RATIO (10-20); Calcium,Total 9.2 mg/dL (8.5-10.1); Chloride 103 mmol/L (98-107); Creatinine, Serum 0.92 mg/dL (0.55-1.02); EST Glomerular Filtration Rate 66 mL/min (>60); Est Glom Filt Rate - Afr Amer 79 mL/min (>60); Glucose 198 mg/dL (74-106); Magnesium 2.5 mg/dL (1.6-2.6); Potassium 3.8 mmol/L (3.5-5.1); Sodium Level 137 mmol/L (136-145); Thyroid Stim Hormone (TSH) 1.76 uIU/mL (0.358-3.74)
== END ==
PROVIDERS: Family Provider Family Medicine; PCP Family Medicine; Referring Provider Family Medicine; Visit Provider Family Medicine
DX: R42 Dizziness and giddiness (principal); R00.2 Palpitations
CPT/HCPCS: 36415; 80048; 82607; 83735; 84443; 85025; 85652

== ENCOUNTER → 2019-12-05 13:39 | Outpatient (CLI) | payer MEDICARE, MEDICAID, SELFPAY ==
[2019-07-26 14:20] VITALS: BMI 26.0
--- NOTE | 2019-12-05 13:44 | CDU_ITS ---
Reason For Study: dizziness Rt. Velocities/BP Lt. Velocities/BP Prox CCA 82.6/17.3 cm/sec. Prox CCA 98.1/19.0 cm/sec. Mid CCA 81.2/17.3 cm/sec. Mid CCA 93.7/24.5 cm/sec. Dist CCA 78.6/20.0 cm/sec. Dist CCA 84.9/15.7 cm/sec. Prox ICA 198.2/62.1 cm/sec. Prox ICA 91.3/23.7 cm/sec. Mid ICA 163.0/40.2 cm/sec. Mid ICA 70.4/15.1 cm/sec. Dist ICA 71.1/20.1 cm/sec. Dist ICA 93.7/28.6 cm/sec. Rt. ICA/CCA = 2.4. Lt. ICA/CCA = 1.0. Prox ECA 139.4/17.0 cm/sec. Prox ECA 135.7/11.5 cm/sec. Rt. Vert. 42.8/9.7 cm/sec. Lt. Vert. 43.7/11.6 cm/sec. Right Extracranial There is heterogeneous, irregular atherosclerotic plaque noted in the right common carotid artery. There is heterogeneous, irregular atherosclerotic plaque noted in the right internal carotid artery. There is homogeneous, smooth atherosclerotic plaque noted in the right external carotid artery. Antegrade flow is noted in the right vertebral artery. Left Extracranial There is heterogeneous, irregular atherosclerotic plaque noted in the left common carotid artery. There is heterogeneous, irregular atherosclerotic plaque noted in the left internal carotid artery. There is homogeneous, smooth atherosclerotic plaque noted in the left external carotid artery. Antegrade flow is noted in the left vertebral artery. Procedure Carotid Duplex 02118. The exam was diagnostic. Exam performed in department. Interpretation Summary Moderate (50-69%) stenosis right extracranial internal carotid. Mild (<50%) stenosis left extracranial internal carotid. Flow within the vertebral arteries is antegrade bilaterally. Ordering Physician: David Sy Performed By: Larry Kelly RVT
--- NOTE | 2019-12-05 14:13 | CT_ITS ---
STUDY: CT BRAIN WITHOUT CONTRAST REASON FOR EXAM: Female, 64 years old. DIZZINESS AND GIDDINESS. More tired and vision changes. ARANA. NKI RADIATION DOSAGE (If Supplied By Facility): CTDIvol = ( 44.99 ) mGy, DLP = ( 779.24 ) mGycm TECHNIQUE: Transaxial CT imaging of the brain was performed without administration of intravenous contrast material. Individualized dose optimization techniques were used for this CT. COMPARISON: 05/03/2015 FINDINGS: Normal soft tissue structures. Normal calvarium. Normal size ventricles and extra-axial spaces for the patient''s age. There are areas of decreased attenuation within the white matter tracts of the supratentorial brain, consistent with microvascular disease changes. Normal basal ganglia and thalami. Normal brainstem. Normal cerebellum. There is no intracranial hemorrhage. There are no findings of an acute ischemic infarction. Normal visualized paranasal sinuses. CT/Brain/Head without Contrast IMPRESSION: 1. Since 05/03/2015, stable exam. 2. White matter changes that are nonspecific but most commonly associated with chronic small vessel ischemic disease. Electronically Signed: Ian Sanford MD ([place]) at 8:16 EST , Service support ,
== END ==
PROVIDERS: Family Provider Family Medicine; PCP Family Medicine; Referring Provider Family Medicine; Visit Provider Family Medicine
DX: R42 Dizziness and giddiness (principal)
CPT/HCPCS: 70450; 93880

== ENCOUNTER → 2020-02-07 | Outpatient (CLI) | payer MEDICARE, MEDICAID, SELFPAY ==
[2019-12-19 15:18] VITALS: BMI 26.0
[2020-02-07 15:43] LABS: Vitamin B12 1140 pg/mL (211-911)
== END | disposition home or self-care (01) ==
PROVIDERS: PCP Family Medicine; Referring Provider Family Medicine; Visit Provider Family Medicine
DX: R42 Dizziness and giddiness (principal)
CPT/HCPCS: 36415; 82607

== ENCOUNTER → 2020-02-15 | Outpatient (CLI) | payer MEDICARE, SELFPAY ==
[2019-12-19 15:18] VITALS: BMI 26.0
--- NOTE | 2020-02-15 13:15 | BI_ITS ---
MAMMOGRAPHY - BILATERAL SCREENING REASON FOR EXAM: Female, 64 years old. Routine annual screening examination. PERTINENT HISTORY: Non-contributory. TECHNIQUE: Digital bilateral breast brittni (3D mammographic acquisition) in the CC and MLO projections. 2-D mediolateral oblique (MLO) and craniocaudad (CC) views of both breasts were obtained. CAD: Full Field Digital Mammography with Computer Added Detection was performed. COMPARISON: Comparison is made with prior examination dated February 18, 2018. FINDINGS: Breast Composition: There are scattered areas of fibroglandular density. There are no dominant masses or suspicious calcifications. Stable small benign-appearing bilateral axillary lymph nodes. No other significant abnormalities are identified. There has been no significant change since the prior study. BI/SCREEN MAMM (CAD) W/BRITTNI BILAT IMPRESSION: Stable bilateral screening mammogram. Yearly follow-up mammogram recommended. (A) ASSESSMENT CATEGORY: BIRADS Category 2: Benign. A letter regarding these results will be sent to the patient by the facility within 30 days. Approximately 10% of breast cancers are not detected by mammography. A normal mammogram should not delay biopsy of a clinically suspicious abnormality. [id number] Electronically Signed: Harry Yu, at 14:47 EDT , Service support ,
== END | disposition home or self-care (01) ==
PROVIDERS: PCP Family Medicine; Referring Provider Family Medicine; Visit Provider Family Medicine
DX: Z12.31 Encounter for screening mammogram for malignant neoplasm of breast (principal)
CPT/HCPCS: 77063; 77067

== ENCOUNTER → 2020-07-10 | Outpatient (CLI) | payer MEDICARE, SELFPAY ==
[2019-12-19 15:18] VITALS: BMI 26.0
[2020-07-10 15:28] LABS: Hematocrit 44.8 % (37-47); Hemoglobin 13.6 g/dL (12.0-15.0); Mean Corp Hgb Conc 30.4 g/dL (32-36); Mean Corpuscular Hgb 26.8 pg (27.0-32.0); Mean Corpuscular Volume 88.4 fL (81-99); Mean Platelet Vol. 9.4 fl (6.2-12.0); Platelet Count 303 K/mm3 (150-450); RBC Distribution Width CV 14.6 % (11.6-14.6); RBC Distribution Width SD 46.9 fl (35.1-43.9); Red Blood Count 5.07 M/mm3 (4.2-5.4); White Blood Count 7.6 K/mm3 (4.4-11.0)
[2020-07-10 15:45] LABS: ALB/GLOB Ratio 0.9 RATIO (0.9-2.4); AST(SGOT) 19 U/L (15-37); Alanine Aminotransfer ALT/SGPT 23 U/L (13-56); Albumin, Serum 3.4 g/dL (3.2-5.0); Alkaline Phosphatase 113 U/L (45-117); Anion Gap 9 (5-15); BUN 11 mg/dL (7-18); Calcium,Total 8.7 mg/dL (8.5-10.1); Chloride 99 mmol/L (98-107); Creatinine, Serum 0.79 mg/dL (0.55-1.02); EST Glomerular Filtration Rate 78 mL/min (>60); Est Glom Filt Rate - Afr Amer 95 mL/min (>60); Globulin 3.9 g/dL (2.2-4.2); Glucose 232 mg/dL (74-106); Potassium 4.7 mmol/L (3.5-5.1); Protein, Total 7.3 g/dL (6.4-8.2); Sodium Level 135 mmol/L (136-145)
== END | disposition home or self-care (01) ==
LOC: MFPLAB 11:33
PROVIDERS: PCP Family Medicine; Referring Provider Family Medicine; Visit Provider Family Medicine
DX: R53.83 Other fatigue (principal)
CPT/HCPCS: 36415; 80053; 85027

== ENCOUNTER → 2020-08-07 | Outpatient (CLI) | payer MEDICARE, MEDICAID, SELFPAY ==
[2020-07-24 12:11] VITALS: BMI 28.1
[2020-08-07 19:08] LABS: BNP,B-Type NATRIURETIC PEPTIDE 9.5 pg/mL (0-100)
[2020-08-07 19:11] LABS: Vitamin B12 860 pg/mL (211-911)
[2020-08-07 19:23] LABS: Erythrocyte Sedimentation Rate 34 mm/hr (0-30)
[2020-08-07 19:37] LABS: Iron 58 ug/dL (50-170); Thyroid Stim Hormone (TSH) 1.09 uIU/mL (0.358-3.74)
[2020-08-16 08:40] LABS: Cotinine Screen Blood 90.4 ng/mL (.); Nicotine Blood 12.4 ng/mL (.)
== END | disposition home or self-care (01) ==
LOC: MFPLAB 14:20
PROVIDERS: PCP Family Medicine; Referring Provider Family Medicine; Visit Provider Family Medicine
DX: D64.9 Anemia, unspecified (principal); J44.1 Chronic obstructive pulmonary disease with (acute) exacerbation; R53.83 Other fatigue; I25.10 Atherosclerotic heart disease of native coronary artery without angina pectoris
CPT/HCPCS: 36415; 80323; 82607; 83540; 83880; 84443; 85652

== ENCOUNTER → 2020-08-08 | Outpatient (CLI) | payer MEDICARE, MEDICAID, SELFPAY ==
[2020-07-24 12:11] VITALS: BMI 28.1
--- NOTE | 2020-08-08 12:50 | ECHOD_ITS ---
Reason For Study: CAD/ASHD Procedure This was a 2D Doppler, Color Flow transthoracic echocardiogram. Exam performed in department. Left Ventricle Normal LV size. The estimated ejection fraction is 60 %. No regional wall motion abnormalities noted. Right Ventricle Normal RV size. Normal systolic function. Atria Normal left atrium. Normal right atrium. Mitral Valve Normal mitral valve. Tricuspid Valve Normal tricuspid valve. Aortic Valve Normal aortic valve. Pulmonic Valve Normal pulmonic valve. Great Vessels Normal aortic root. The pulmonary artery is normal size. Normal inferior vena cava. Pericardium/Pleural No pericardial effusion. MMode/2D Measurements & Calculations LVIDd: 3.8 cm IVSd: 0.98 cm Ao root diam: 2.9 cm LVIDs: 2.5 cm LVPWd: 0.81 cm RVDd: 2.8 cm FS: 34.9 % LAV(MOD-bp): 27.9 ml LVAd ap4: 22.9 cm2 SV(MOD-sp4): 38.8 ml LAV(MOD-bp) Indexed: 15.4 ml/m2 EDV(MOD-sp4): 60.1 ml LAV(MOD-sp2): 37.2 ml EDV(sp4-el): 62.2 ml LAV(MOD-sp4): 19.4 ml LVAs ap4: 11.9 cm2 ESV(MOD-sp4): 21.3 ml ESV(sp4-el): 20.1 ml EF(MOD-sp4): 64.5 % EF(sp4-el): 67.7 % SV(sp4-el): 42.1 ml LA A4 area: 10.2 cm2 LA dimension(2D): 3.3 cm RA A4 area: 8.1 cm2 Time Measurements MV dec time: 0.29 sec Doppler Measurements & Calculations MV E max timothy: 79.9 cm/sec Lat Peak E' Timothy: 14.3 cm/sec Med Peak E' Timothy: 10.8 cm/sec MV A max timothy: 83.1 cm/sec E/E' lat: 5.6 E/E' med: 7.4 MV E/A: 0.96 Ao V2 max: 129.3 cm/sec LV V1 max: 83.5 cm/sec PA V2 max: 121.7 cm/sec Ao max P.7 mmHg LV V1 max P.8 mmHg TR max timothy: 198.4 cm/sec TR max P.9 mmHg Interpretation Summary Normal LV size. The estimated ejection fraction is 60 %. Structurally normal valves. Ordering Physician: Chase Mancilla Referring Physician: TYREL GONSALEZ Performed By: Ara Mallory RDCS
== END | disposition home or self-care (01) ==
LOC: CVS 12:50
PROVIDERS: PCP Family Medicine; Referring Provider Internal Medicine Cardiovascular Disease; Visit Provider Internal Medicine Cardiovascular Disease
DX: I25.10 Atherosclerotic heart disease of native coronary artery without angina pectoris (principal)
CPT/HCPCS: 93306

== ENCOUNTER → 2020-08-14 | Outpatient (CLI) | payer MEDICARE, MEDICAID, SELFPAY ==
[2020-07-24 12:11] VITALS: BMI 28.1
--- NOTE | 2020-08-14 12:22 | RAD_ITS ---
STUDY: X-RAY - LEFT SHOULDER REASON FOR EXAM: Female, 64 years old. Left shoulder pain TECHNIQUE: 4 view(s) of the shoulder. COMPARISON: None. FINDINGS: Normal glenohumeral articulation. Normal acromioclavicular joint. Normal acromion. Normal humeral head and visualized proximal humerus. The soft tissue structures are unremarkable. Previous rotator cuff surgery. Normal visualized pulmonary apex. RAD/Shoulder min 2 Views IMPRESSION: No acute bony injury of the shoulder. Electronically Signed: Simeon Ross DO at 18:26 EDT Tel [phone], Service support ,
== END | disposition home or self-care (01) ==
LOC: MTRAD 12:21
PROVIDERS: PCP Family Medicine; Referring Provider Family Medicine; Visit Provider Family Medicine
DX: M25.512 Pain in left shoulder (principal)
CPT/HCPCS: 73030

== ENCOUNTER → 2020-09-23 | Outpatient (CLI) | payer MEDICARE, MEDICAID, SELFPAY ==
[2020-07-24 12:11] VITALS: BMI 28.1
--- NOTE | 2020-09-23 13:52 | CT_ITS ---
STUDY: LOW DOSE CT LUNG CANCER SCREENING REASON FOR EXAM: Female, 64 years old. TOBACCO USE- QUIT SMOKING 14 YRS AGO, 30+YR SMOKER X 1 PPD, XR=359, DB,NC, SURG-CABG X 4, APPY, GB, HYSTERECTOMY, HERNIA X 2 RADIATION DOSAGE (If Supplied By Facility): CTDIvol = ( 2.55 ) mGy, DLP = ( 78.18 ) mGycm TECHNIQUE: No contrast was administered. Low dose technique was utilized (average mAS-38 and kVp 120). 1.25 mm axial source images with a slice interval of 1.25-mm were reconstructed in lung windows. 2.5 mm axial source images with a slice interval of 2.5-mm were reconstructed in lung windows. 5.0 mm axial source images with a slice interval of 5.0-mm were reconstructed in soft tissue windows. Nodule measured using lung windows on PACS and/or independent workstation with automated measurement of minimum and maximum diameter. Nodule measurement reported as average diameter rounded to the nearest whole number. Growth is defined as an increase ins size of greater than 1.5 mm. COMPARISON: Comparison is made with prior study dated 02/24/2018. NODULES: There now is evidence of a 7.1 mm x 8.1 mm slightly irregular nodule in the anterior lateral aspect of the right upper lobe. This was not present on prior examination. Stable calcified granuloma in the posterior left lower lobe. Emphysema: Mild degree of emphysematous changes with mild scarring at the lung apices slightly more prominent on the left side. Mild degree of increased markings at the lung bases suggestive of a mild scarring. Aorta: Atherosclerotic plaque formation of the aortic arch and descending thoracic aorta. Coronary arteries: Coronary artery calcification. Heart: Prior CABG. Mediastinal nodes: Calcified subcarinal lymph nodes as well as left infrahilar lymph node. Other chest and abdominal findings: Degenerative changes of the thoracic spine. CT/Low Dose CT Lung Screening IMPRESSION: Lung-RADS category 4A - Screening at 3 months wiht LDCT or evaluation with PET/CT may be used. IMPORTANT NOTES FOR USE: ACR Lung-RADS Version 1.0 Assessment Categories Release Date: March 26, 2014 Category: Coded 0-4 bases on nodule(s) with highest degree of suspicion. Negative screen is defined as categories 1 and 2; a positive screen is defined as categories 3 and 4. Category 3 and 4A nodules that are unchanged on interval CT should be coded as category 2, and individuals returned to screening in 12 months. Category 4X: Category 3 or 4 nodules with additional imaging findings that increase the suspicion of lung cancer, such as spiculation, GGN that doubles in size in 1 year, enlarged lymph notes, etc. Category Modifiers: S (significant finding unrelated to lung cancer) and C (prior history of treated lung cancer) may be added to the 0-4 Lung-RADS Electronically Signed: Harry Yu, at 9:28 EDT , Service support ,
== END | disposition home or self-care (01) ==
LOC: CT 13:49
PROVIDERS: PCP Family Medicine; Referring Provider Internal Medicine Pulmonary Disease; Visit Provider Internal Medicine Pulmonary Disease
DX: Z87.891 Personal history of nicotine dependence (principal); Z12.2 Encounter for screening for malignant neoplasm of respiratory organs
CPT/HCPCS: G0297

== ENCOUNTER → 2020-10-01 12:32 | Outpatient (CLI) | payer MEDICARE, MEDICAID, SELFPAY ==
[2020-07-24 12:11] VITALS: BMI 28.1
[2020-10-03 20:07] LABS: QNTFERON TB Mitogen Value > 10.00 IU/mL (.); QNTFERON TB Nil Value 0.03 IU/mL (.); QNTFERON TB1+ Ag Value 0.03 IU/mL (.); QNTFERON TB2+ Ag Value 0.02 IU/mL (.)
[2020-10-03 20:37] LABS: QNTIFERON TB Positive Criteria Negative (Negative)
== END ==
LOC: LAB.FUTURE 12:35 → LAB 12:37
PROVIDERS: PCP Family Medicine; Referring Provider Internal Medicine Pulmonary Disease; Visit Provider Internal Medicine Pulmonary Disease
DX: J43.9 Emphysema, unspecified (principal); R91.1 Solitary pulmonary nodule
CPT/HCPCS: 36415; 86480

== ENCOUNTER → 2020-10-08 11:36 | Outpatient (CLI) | payer MEDICARE, MEDICAID, SELFPAY ==
[2020-07-24 12:11] VITALS: BMI 28.1
[2020-10-08 15:32] LABS: ALB/GLOB Ratio 0.8 RATIO (0.9-2.4); AST(SGOT) 18 U/L (15-37); Alanine Aminotransfer ALT/SGPT 21 U/L (13-56); Albumin, Serum 3.4 g/dL (3.2-5.0); Alkaline Phosphatase 112 U/L (45-117); Anion Gap 7 (5-15); BUN 9 mg/dL (7-18); BUN/Creat Ratio 9.1 RATIO (10-20); Calcium,Total 9.2 mg/dL (8.5-10.1); Chloride 100 mmol/L (98-107); Cholesterol 122 mg/dL (200); Creatinine, Serum 0.99 mg/dL (0.55-1.02); EST Glomerular Filtration Rate 60 mL/min (>60); Est Glom Filt Rate - Afr Amer 73 mL/min (>60); Globulin 4.5 g/dL (2.2-4.2); Glucose 177 mg/dL (74-106); High Density Lipoprotein 43 mg/dL; Potassium 4.4 mmol/L (3.5-5.1); Protein, Total 7.9 g/dL (6.4-8.2); Sodium Level 134 mmol/L (136-145); Triglycerides 153 mg/dL; Very Low Density Lipoprotein 31 mg/dL (5-40)
== END ==
PROVIDERS: PCP Family Medicine; Referring Provider Family Medicine; Visit Provider Family Medicine
DX: E11.9 Type 2 diabetes mellitus without complications (principal)
CPT/HCPCS: 36415; 80053; 80061

== ENCOUNTER → 2020-10-11 12:56 | Outpatient (CLI) | payer MEDICARE, MEDICAID, SELFPAY ==
[2020-07-24 12:11] VITALS: BMI 28.1
[2020-10-14 04:46] LABS: Carcinoembryonic Antigen 12.7 ng/mL (0.0-4.7)
== END ==
PROVIDERS: PCP Family Medicine; Referring Provider Internal Medicine Pulmonary Disease; Visit Provider Internal Medicine Pulmonary Disease
DX: R97.0 Elevated carcinoembryonic antigen [CEA] (principal); R91.1 Solitary pulmonary nodule
CPT/HCPCS: 36415; 82378

== ENCOUNTER → 2020-10-22 14:09 | Outpatient (CLI) | payer MEDICARE, MEDICAID, SELFPAY ==
[2020-07-24 12:11] VITALS: BMI 28.1
--- NOTE | 2020-10-22 15:00 | PET_ITS ---
EXAMINATION: FDG PET-CT INDICATIONS: A 64-year-old female with history of pulmonary nodularity. COMPARISON EXAMINATION: CT of the chest report dated 09/25/2020, FDG PET-CT study dated 05/16/2018 TECHNIQUE: Following the intravenous administration of 12.1 mCi of F-18 deoxyglucose via the left antecubital fossa, multiplanar image acquisitions of the neck, chest, abdomen and pelvis to level of mid thigh, obtained at one hour post radiopharmaceutical administration contemporaneously interpreted with the current CT of the neck, chest, abdomen and pelvis, to level of mid thigh, dated 10/22/[address] of the chest report dated 09/25/2020, FDG PET-CT study dated 05/16/2018 reveals: BLOOD GLUCOSE LEVEL:?? 184 mg/dl?HEIGHT:?64 inches?WEIGHT: 167 lbs. FINDINGS: 1. There is no quantitative scintigraphic evidence of abnormal increased glucose metabolism within the context of the right upper anterolateral lung-right upper lobe non-calcified parenchymal density on review of CT of the chest dated 10/22/2020. 2. Normal physiologic distribution of the radiopharmaceutical is apparent in the hepatic and splenic parenchyma, both renal units, bladder and visualized intestinal tract. The visualized portion of the cerebral cortex demonstrate symmetric and preserved glucose metabolism. Diffuse radiopharmaceutical concentration is noted in all four quadrants of the abdomen and pelvis, most accentuated in the right upper anterior pelvic mesentery. Pertinent CT findings are as follows: CHEST: There is atherosclerotic calcification defined in the thoracic aorta without evidence of dilatation-aneurysm formation. Coronary arterial calcification is observed. There is evidence of prior median sternotomy. Bilateral axillary, calcified and non-calcified mediastinal and thoracic perihilar soft tissue densities are ametabolic. A calcified density demonstrated in the left lower posterior lung-left lower lobe remains morphologically stable and non-glucose avid. ABDOMEN AND PELVIS: Calcified granuloma formation is observed in the splenic parenchyma. There is atherosclerotic calcification defined in the abdominal aorta without evidence of dilatation-aneurysm formation. Pelvic arterial calcification is observed. Bilateral subcentimeter inguinal soft tissue densities are non-glucose avid. The uterus appears surgically absent. SKELETAL: Degenerative changes are noted in the cervical, thoracic and lumbar spine without evidence of increased glucose metabolism. There are no sclerotic, mixed sclerotic-lytic and/or primarily lytic changes noted on review of the appendicular, axial skeletal structures. PET/PET/CT Tumor Base -Thigh Init IMPRESSION: 1. NEGATIVE EXAMINATION. There is no quantitative scintigraphic evidence of abnormal increased glucose metabolism within the context of the right upper anterolateral lung-right upper lobe to correlate with structural changes noted on review of CT of the thorax dated 10/22/2020. 2. Anatomic stability may be ensured in the nonglucose avid right upper lobe parenchymal density with repeat CT of the thorax in 3-6 months if clinically indicated. (Kyra, Seminars in Thoracic and Cardiovascular Surgery 14:292, 2002). 3. Facilitated tracer concentration observed in the right upper anterior pelvic mesentery is most consistent with physiologic tracer distribution. If intraluminal soft tissue mass formation is a diagnostic consideration, correlation with CT of the abdomen and pelvis with oral and intravenous contrast is recommended. (Refugio et al, Journal of Nuclear Medicine, 30:S276, 2003). Electronic Signature Ag Williamson D.O. Accurate Quantification of SUVs for this report are calculated using the exclusive [employer]. Electronically Signed: Ag Williamson DO at 22:17 EST Tel , Service support ,
== END ==
PROVIDERS: PCP Family Medicine; Referring Provider Family Medicine; Visit Provider Internal Medicine Pulmonary Disease
DX: R91.8 Other nonspecific abnormal finding of lung field (principal)
CPT/HCPCS: 78815; A9552

== ENCOUNTER → 2020-12-04 09:55 | Outpatient (CLI) | payer MEDICARE, MEDICAID, SELFPAY ==
[2020-11-26 10:22] VITALS: BMI 28.5
--- NOTE | 2020-12-04 09:57 | CDU_ITS ---
Reason For Study: Carotid stenosis Rt. Velocities/BP Lt. Velocities/BP Prox CCA 77.3/10.8 cm/sec. Prox CCA 76.5/16.3 cm/sec. Mid CCA 87.8/17.3 cm/sec. Mid CCA 102.3/22.5 cm/sec. Dist CCA 79.9/17.3 cm/sec. Dist CCA 104.8/23.7 cm/sec. Prox ICA 220.1/55.5 cm/sec. Prox ICA 85.1/22.5 cm/sec. Mid ICA 141.1/31.4 cm/sec. Mid ICA 76.5/22.5 cm/sec. Dist ICA 94.9/26.2 cm/sec. Dist ICA 90/24.9 cm/sec. Rt. ICA/CCA = 2.8. Lt. ICA/CCA = 0.9. Prox ECA 141.2/17 cm/sec. Prox ECA 108.3/11.5 cm/sec. Rt. Vert. 46.5/9 cm/sec. Lt. Vert. 49.4/11.6 cm/sec. Right Extracranial There is heterogeneous, irregular atherosclerotic plaque noted in the right common carotid artery. There is heterogeneous, irregular atherosclerotic plaque noted in the right internal carotid artery. There is homogeneous, smooth atherosclerotic plaque noted in the right external carotid artery. Antegrade flow is noted in the right vertebral artery. Left Extracranial There is heterogeneous, irregular atherosclerotic plaque noted in the left common carotid artery. There is heterogeneous, irregular atherosclerotic plaque noted in the left internal carotid artery. There is homogeneous, smooth atherosclerotic plaque noted in the left external carotid artery. Antegrade flow is noted in the left vertebral artery. Procedure Carotid Duplex 54970. This is a Carotid Duplex examination using B-mode, color flow and specral Doppler. Exam performed in department. Interpretation Summary Calcific irregular plaque with shadowing at the distal right common carotid and proximal right internal and external carotid arteries 50 to 69% stenosis right proximal internal carotid (possibly closer to upper levels of range) Less than 50% stenosis right external carotid Irregular calcific plaque with shadowing proximal left internal carotid artery with less than 50% stenosis Less than 50% stenosis left external carotid artery Patent and antegrade vertebrals bilaterally Findings appear similar to the examination of December 05, 2019 Ordering Physician: Marguerite Delvalle Referring Physician: Esdras Sy MD Performed By: Angie Dumont RVT
== END ==
PROVIDERS: PCP Family Medicine; Referring Provider Physician Assistant Medical; Visit Provider Physician Assistant Medical
DX: I65.21 Occlusion and stenosis of right carotid artery (principal)
CPT/HCPCS: 93880

== ENCOUNTER → 2021-01-13 11:29 | Outpatient (CLI) | payer MEDICARE, MEDICAID, SELFPAY ==
[2020-12-13 13:02] VITALS: BMI 28.1
[2021-01-13 15:16] LABS: Hematocrit 44.7 % (37-47); Hemoglobin 13.9 g/dL (12.0-15.0); Mean Corp Hgb Conc 31.1 g/dL (32-36); Mean Corpuscular Hgb 28.3 pg (27.0-32.0); Mean Corpuscular Volume 90.9 fL (81-99); Mean Platelet Vol. 9.7 fl (6.2-12.0); Platelet Count 330 K/mm3 (150-450); RBC Distribution Width CV 14.6 % (11.6-14.6); RBC Distribution Width SD 48.7 fl (35.1-43.9); Red Blood Count 4.92 M/mm3 (4.2-5.4); White Blood Count 6.6 K/mm3 (4.4-11.0)
[2021-01-13 15:55] LABS: ALB/GLOB Ratio 0.9 RATIO (0.9-2.4); AST(SGOT) 18 U/L (15-37); Alanine Aminotransfer ALT/SGPT 19 U/L (13-56); Albumin, Serum 3.5 g/dL (3.2-5.0); Alkaline Phosphatase 117 U/L (45-117); Anion Gap 5 (5-15); BUN 12 mg/dL (7-18); Calcium,Total 9.1 mg/dL (8.5-10.1); Chloride 101 mmol/L (98-107); EST Glomerular Filtration Rate 59 mL/min (>60); Est Glom Filt Rate - Afr Amer 72 mL/min (>60); Ferritin 39 ng/mL (8-252); Globulin 3.7 g/dL (2.2-4.2); Glucose 344 mg/dL (74-106); Iron 54 ug/dL (50-170); Protein, Total 7.2 g/dL (6.4-8.2); Sodium Level 134 mmol/L (136-145)
== END ==
PROVIDERS: PCP Family Medicine; Visit Provider Family Medicine
DX: E11.9 Type 2 diabetes mellitus without complications (principal); D64.9 Anemia, unspecified
CPT/HCPCS: 36415; 80053; 82728; 83540; 85027

== ENCOUNTER → 2021-01-30 12:30 | Outpatient (CLI) | payer MEDICARE, MEDICAID, SELFPAY ==
[2020-07-24 12:11] VITALS: BMI 28.1
[2020-12-13 13:02] VITALS: BMI 28.1
--- NOTE | 2021-01-30 12:32 | CT_ITS ---
STUDY: CT CHEST WITHOUT CONTRAST REASON FOR EXAM: Female, 65 years old. LUNG NODULE RADIATION DOSAGE (If Supplied By Facility): CTDIvol = ( 11.84 ) mGy, DLP = ( 408.12 ) mGycm TECHNIQUE: Transaxial imaging was performed without the administration of intravenous contrast material. Multiplanar coronal and sagittal images were reformatted. Individualized dose optimization techniques were used for this CT. COMPARISON: Comparison is made with prior examination of 09/23/2020. FINDINGS: Mild emphysematous changes at the lung apices. There is a 7.7 mm x 1.2 cm slightly irregular nodule in the anterior lateral aspect of the right upper lobe as seen on axial image #26 and coronal image 123. This has increased in size as compared to prior study. Stable calcified granuloma in the posterior aspect of the left lower lobe. There is no demonstrated pleural abnormality. Sternal cerclage wires and vascular clips are present from a prior sternotomy and coronary artery bypass graft procedure (CABG). There are calcifications of the coronary arteries. There are multiple small lymph nodes within the mediastinum, which are normal in size and morphology most compatible with reactive lymph hyperplasia. Normal hilar regions. Normal unenhanced pulmonary arteries. There is atherosclerotic calcification of the aortic arch with tortuosity and elongation of the aortic arch and descending thoracic aorta. There are multi-level degenerative changes of the thoracic spine. Calcified splenic granulomas. CT/Chest without Contrast IMPRESSION: Slight increase in the size of the irregular nodular density in the anterior aspect of the right upper lobe as described. The remainder of the examination is unchanged. Electronically Signed: Harry Yu MD at 13:13 EST , Service support ,
== END ==
PROVIDERS: PCP Family Medicine; Referring Provider Internal Medicine Pulmonary Disease; Visit Provider Internal Medicine Pulmonary Disease
DX: R91.1 Solitary pulmonary nodule (principal)
CPT/HCPCS: 71250

== ENCOUNTER → 2021-04-17 11:32 | Outpatient (CLI) | payer MEDICARE, SELFPAY ==
[2021-02-17 10:06] VITALS: BMI 29.0
[2021-04-17 15:51] LABS: ALB/GLOB Ratio 0.8 RATIO (0.9-2.4); AST(SGOT) 13 U/L (15-37); Alanine Aminotransfer ALT/SGPT 18 U/L (13-56); Albumin, Serum 3.4 g/dL (3.2-5.0); Alkaline Phosphatase 108 U/L (45-117); Anion Gap 7 (5-15); BUN 11 mg/dL (7-18); BUN/Creat Ratio 12.9 RATIO (10-20); Calcium,Total 9.4 mg/dL (8.5-10.1); Chloride 100 mmol/L (98-107); Cholesterol 114 mg/dL (200); Creatinine, Serum 0.86 mg/dL (0.55-1.02); EST Glomerular Filtration Rate 71 mL/min (>60); Est Glom Filt Rate - Afr Amer 86 mL/min (>60); Globulin 4.5 g/dL (2.2-4.2); Glucose 230 mg/dL (74-106); High Density Lipoprotein 42 mg/dL; Potassium 4.6 mmol/L (3.5-5.1); Protein, Total 7.9 g/dL (6.4-8.2); Sodium Level 133 mmol/L (136-145); Triglycerides 128 mg/dL; Very Low Density Lipoprotein 26 mg/dL (5-40)
== END ==
PROVIDERS: PCP Family Medicine; Referring Provider Family Medicine; Visit Provider Family Medicine
DX: E11.9 Type 2 diabetes mellitus without complications (principal)
CPT/HCPCS: 36415; 80053; 80061; 84443

== ENCOUNTER → 2021-06-13 11:23 | Outpatient (CLI) | payer MEDICARE, MEDICAID, SELFPAY ==
[2021-02-17 10:06] VITALS: BMI 29.0
--- NOTE | 2021-06-13 11:27 | BI_ITS ---
MAMMOGRAPHY - BILATERAL SCREENING REASON FOR EXAM: Female, 65 years old. Routine annual screening examination. PERTINENT HISTORY: Non-contributory. History of lung cancer. TECHNIQUE: Digital bilateral breast brittni (3D mammographic acquisition) in the CC and MLO projections. 2-D mediolateral oblique (MLO) and craniocaudad (CC) views of both breasts were obtained. CAD: Full Field Digital Mammography with Computer Added Detection was performed. COMPARISON: Comparison is made with prior study dated 02/15/2020 and 02/18/2018. FINDINGS: Breast Composition: There are scattered areas of fibroglandular density. There are no dominant masses or suspicious calcifications. No other significant abnormalities are identified. There has been no significant change since the prior study. BI/SCRN MAMM (CAD)W/BRITTNI BILAT IMPRESSION: Stable bilateral screening mammogram. Yearly follow-up mammogram recommended. (A) ASSESSMENT CATEGORY: BIRADS Category 1: Negative. A letter regarding these results will be sent to the patient by the facility within 30 days. Approximately 10% of breast cancers are not detected by mammography. A normal mammogram should not delay biopsy of a clinically suspicious abnormality. [id number] Electronically Signed: Harry uY MD at 12:10 EDT , Service support ,
== END ==
PROVIDERS: PCP Family Medicine; Referring Provider Nurse Practitioner Family; Visit Provider Nurse Practitioner Family
DX: Z12.31 Encounter for screening mammogram for malignant neoplasm of breast (principal)
CPT/HCPCS: 77063; 77067

== ENCOUNTER 2021-08-06 07:23 | Day surgery (SDC) | payer MEDICARE, MEDICAID, SELFPAY ==
[2021-06-25 14:31] VITALS: BMI 29.0
[2021-08-06] VITALS (9 sets, daily range): BP systolic 88–126; BP diastolic 46–66; PULSE 79–96; RESP 16–18; TEMP 36.4–36.7; O2SAT 93–99; BMI 28.5
--- NOTE | 2021-08-06 07:44 | H&P.OPEN ---
HPI - General HPI Narrative ANIRUDH SHELBY, is a 65 F who presents for colonoscopy due to diarrhea. Patient dates the last 6 months she has had diarrhea daily up to 6 times--no change. Patient currently denies any abdominal pain does states she occasionally has crampy abdominal pain. Patient denies having any recent antibiotics. She does have reflux on omeprazole 40 mg a day late. Denies symptoms. Patient's last colonoscopy was in March 2018 for follow-up after a large sigmoid polyp 3.5 cm removed piecemeal. That area did look good in March 2018. Patient states she previous an EGD at [facility] unsure of the date. [facility] Medical History (Updated 08/06/21 @ 08:[address] 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) On home oxygen therapy Osteoarthritis Reflux esophagitis RLS (restless legs syndrome) Tubular adenoma of colon Type 2 diabetes mellitus Ventral hernia Wears dentures Wears glasses Home Medications aspirin 81 mg PO DAILY@0800 01/25/16 [History Last Taken 04/01/18] atorvastatin 40 mg tablet 40 mg PO QDAY 12/03/17 [History Last Taken Unknown] cholecalciferol (vitamin D3) 2,000 unit PO DAILY 03/14/19 [History Last Taken Unknown] escitalopram oxalate 10 mg tablet 20 mg PO QDAY tab 12/19/19 [History Last Taken Unknown] glimepiride 4 mg tablet 4 mg PO DAILY 07/24/20 [History Last Taken Unknown] linagliptin 5 mg tablet 5 mg PO DAILY tab 07/24/20 [History Last Taken Unknown] mirtazapine 15 mg tablet 15 mg PO DAILY tab 07/24/20 [History Last Taken Unknown] insulin detemir U-100 100 unit/mL (3 mL) subcutaneous pen 45 unit SC QHS ml 11/26/20 [History Last Taken Unknown] nitroglycerin 0.4 mg sublingual tablet 0.4 mg SUBLINGUAL Q5-15M PRN #25 tab 11/26/20 [Rx Last Taken Unknown] Allergy/AdvReac Type Severity Reaction Status Date / Time codeine Allergy Hives Verified 08/06/21 07:50 fluticasone propionate Allergy Hives Verified 08/06/21 07:50 [From Flonase] mometasone furoate Allergy Hives Verified 08/06/21 07:50 [From Nasonex] Penicillins Allergy Hives Verified 08/06/21 07:50 sitagliptin phosphate Allergy Hives Verified 08/06/21 07:50 [From Januvia] Sulfa (Sulfonamide Allergy Hives Verified 08/06/21 07:50 Antibiotics) tramadol Allergy Hives Verified 08/06/21 07:50 venlafaxine HCl Allergy Hives Verified 08/06/21 07:50 [From Effexor] cortisone AdvReac Other Verified 08/06/21 07:50 desvenlafaxine succinate AdvReac Other Verified 08/06/21 07:50 [From Pristiq] fluoxetine HCl [From Prozac] AdvReac Vomiting Verified 08/06/21 07:50 gabapentin [From Neurontin] AdvReac Vomiting Verified 08/06/21 07:50 hydrochlorothiazide AdvReac Other Verified 08/06/21 07:50 hydrocodone bitartrate AdvReac Vomiting Verified 08/06/21 07:50 [From Vicodin] lisinopril AdvReac Other Verified 08/06/21 07:50 losartan [Losartan] AdvReac Other Verified 08/06/21 07:50 oxycodone HCl AdvReac Other Verified 08/06/21 07:50 [From OxyContin] pioglitazone HCl [From Actos] AdvReac Vomiting Verified 08/06/21 07:50 propoxyphene napsylate AdvReac Vomiting Verified 08/06/21 07:50 [From Darvocet-N] tizanidine AdvReac Other Verified 08/06/21 07:50 Family History Father Cancer bone Grandfather Cancer Grandmother Cancer Other Heart disease Surgical History (Updated 08/01/21 @ 10:09 by Patrica Ureña) Abnormal colonoscopy (01/10/18) H/O coronary artery bypass surgery (04/03/07) History of appendectomy History of arthroscopy of right knee History of bilateral carpal tunnel release History of cardiac catheterization History of cholecystectomy History of coronary artery stent placement (01/27/16) History of esophagogastroduodenoscopy (EGD) History of hysterectomy History of inguinal hernia repair, bilateral History of laparoscopy History of lung surgery History of rotator cuff surgery Hx of colonoscopy Status post laparoscopic cholecystectomy Social History (Updated 02/18/21 @ 14:29 by Marguerite Delvalle PA, PA) Smoking Status: Former smoker how long ago did patient quit smokin years ago alcohol intake: never substance use type: marijuana caffeine: Yes Type: coffee Number of servings: 3 Past Medical/Surgical History Planned Operation Planned Operative Procedure/s: EGD/COLONSCOPY S.O.S: No Previous Hospitalizations/Surgeries HX Hospitalizations: Yes (2 yrs ago/heart attack) HX of Surgeries: colonoscopy x2 open heart/4 vessel bypass 11 yrs ago hysterectomy gallbladder hiatal hernia repair appendectomy knee scope foot surgery heart stent x2 2016 Any Problems With Anesthesia: No You/Your Family Experience Fever (Hyperthermia) With Anes: No Cholinesterase deficiency: No Cardiovascular Hx Chest Pain within Last 2 months: No Hx of Irregular Heartbeat and/or Afib: No (follows with dr diego/last visit 2018) Hx Heart Attack: Yes (2015) Hx Congestive Heart Failure: No Hx Rheumatic Fever: No Hx Hypertension: No Hx Internal Defibrillator: No Hx Pacemaker: No Hx Cardiac Catheterization: Yes (2015) What facility was last heart cath performed: - Date of last Heart Cath: - Hx Cardiac Surgery/Stents/Etc.: Yes (open heart 11 yrs ago/stents x2 2015) Hx Stress Test: Yes (2017) Hx Pain in Legs when Walking/Leg Cramps: Yes Respiratory Chronic Cough: Yes HX of Shortness of Breath: No Hoarseness: No Hx Chronic Obstructive Pulmonary Disease (COPD): No Hx Asthma: Yes Hx Emphysema: Yes Hx Sleep Apnea: No Hx Respiratory Tract Infection/Cold (presently): No Do You Snore Loudly (louder than talking or can be heard): No Do You Often Feel Tired/ Fatigued/ Sleepy Dring Daytime?: No Has Anyone Observed You Stop Breathing During Sleep?: No Result (for STOP score): Negative Hx Smoking: Yes (quit 11 yrs ago) Smoking Status: Former smoker Gastrointestinal Hx Gastroesophageal Reflux: Yes Controlled With Meds: Yes Hx Gastrointestinal Disorders: No Hx Gastrointestinal Bleed: No Hx Ulcer: No Hx Hiatal Hernia: Yes (had surgery) Difficulty Chewing/Swallowing: No Special diet followed at home: Yes (diabetic) Hx Unplanned Weight Loss of 20#: No HX Unplanned Weight Gain of 20#: No Neurological Hx Seizures: No HX Syncope/Blackout Spells/Unconsciousness: Yes (syncope 2016 with chest pain) Hx Transient Ischemic Attacks (TIA): No Hx Multiple Sclerosis: No Hx Parkinson's Disease: No Hx Head/Neck Injury: No Hx Headaches: No Hx Back Injury/Pain: Yes (lower back with arthritis) Recent Onset of Speech Difficulty: No Restless Legs: Yes Does patient have nerve stimulator: No Blood Disorder Hx Leukemia: No Bleeding Tendencies: No Hx Deep Vein Thrombosis: No Hx High Cholesterol: Yes (on med) Blood Transmitted Disease: No Hx Hepatitis: No Hx Cirrhosis: No Hx Anemia: No Hx Blood Disorders: No Reproduction Is Patient Lactating: No Hx Hysterectomy: Yes Hx Tubal Ligation: No Are You Post Menopause: Yes Genitourinary Hx Renal Disease: No Hx Dialysis: No Musculoskeletal Hx Arthritis: Yes Hx Rheumatoid Arthritis: No Hx Gout: No Recent Onset of an Orthopedic Problem: No Endocrine Hx Diabetes: Yes Insulin: No Thyroid Disease: No Hx Steroid Therapy: No Psycho/Social Hx Substance Use: Yes (marijuna use at times) Hx Alcohol Use: No Hx Anxiety: Yes (on med) Hx Depression: Yes (on med) Hx Dementia: No Miscellaneous Hx Cancer: No Recent Exposure to Contagious Disease: No Hx of C-Diff: No Any Loose Teeth: No (full set of dentures) Allergies codeine Allergy (Verified 08/06/21 07:50) Hives fluticasone propionate [From Flonase] Allergy (Verified 08/06/21 07:50) Hives mometasone furoate [From Nasonex] Allergy (Verified 08/06/21 07:50) Hives Penicillins Allergy (Verified 08/06/21 07:50) Hives sitagliptin phosphate [From Januvia] Allergy (Verified 08/06/21 07:50) Hives Sulfa (Sulfonamide Antibiotics) Allergy (Verified 08/06/21 07:50) Hives tramadol Allergy (Verified 08/06/21 07:50) Hives venlafaxine HCl [From Effexor] Allergy (Verified 08/06/21 07:50) Hives cortisone Adverse Reaction (Verified 08/06/21 07:50) Other desvenlafaxine succinate [From Pristiq] Adverse Reaction (Verified 08/06/21 07:50) Other fluoxetine HCl [From Prozac] Adverse Reaction (Verified 08/06/21 07:50) Vomiting gabapentin [From Neurontin] Adverse Reaction (Verified 08/06/21 07:50) Vomiting hydrochlorothiazide Adverse Reaction (Verified 08/06/21 07:50) Other hydrocodone bitartrate [From Vicodin] Adverse Reaction (Verified 08/06/21 07:50) Vomiting lisinopril Adverse Reaction (Verified 08/06/21 07:50) Other losartan [Losartan] Adverse Reaction (Verified 08/06/21 07:50) Other oxycodone HCl [From OxyContin] Adverse Reaction (Verified 08/06/21 07:50) Other pioglitazone HCl [From Actos] Adverse Reaction (Verified 08/06/21 07:50) Vomiting propoxyphene napsylate [From Darvocet-N] Adverse Reaction (Verified 08/06/21 07:50) Vomiting tizanidine Adverse Reaction (Verified 08/06/21 07:50) Other From the PAT History Number of Risk Factors: 7 Vital Signs Vital Signs Vital Signs: Weight Body Mass Index (BMI) 29.0 Physical Exam Const alert, oriented x3 and no apparent distress HEENT normocephalic and head/scalp atraumatic Resp normal respiratory effort Cardio regular rate GI soft to palpation and non-tender; Negative for non-distended Palpation: Negative for guarding Extremity General Extremity: clubbing; Negative for cyanosis Neuro CN's II-XII intact bilaterally Psych mental status grossly normal Assessment & Plan Assessment/Plan (1) GERD (gastroesophageal reflux disease): (2) Diarrhea: Procedure Criteria Type of Procedure Procedure Type: Elective Elective Risks - COVID COVID Risk Discussion: The surgeon/proceduralist and patient have discussed in detail the risk of exposure to and/or potential harm posed by the COVID-19 virus with having a surgery/procedure at this time versus the risk of delaying the surgery/procedure. It is not possible to know either the risk of delaying the surgery or procedure or chance of getting an infection with perfect accuracy, but a joint decision was made between the patient and the surgeon/proceduralist to proceed at this time with the scheduled surgery/procedure as indicated on the consent form. Surgery Risks - Colonoscopy Risks Include but are not Limited To: Risks include but are not limited to: Bleeding, perforation requiring further surgery, inability to complete colonoscopy requiring barium enema. Patient no further question this time.
[2021-08-06] MEDS: Lactated Ringers 1,000 ML 100 ML IV (07:45)
--- NOTE | 2021-08-06 09:02 | OP.CCLET_ITS ---
08/06/2021 David Sy [address] [place] [address] Re : Upper GI endoscopy procedure for Karolina Canada Dear Dr. Sy This procedure was performed on Friday, August 06, 2021. My impressions and recommendations are as follows: Impressions : OTHER - No specimens collected. Recommendations : - Discharge patient to home. - Resume previous diet. - Continue present medications. My findings are described in the full procedure note, which is enclosed. If I can be of further assistance, please feel free to contact me at Doctor phone number(s): , Work: . Sincerely, MD Marlen Miramontes MD 08/06/2021 9:01:13 AM This report has been signed electronically.
--- NOTE | 2021-08-06 09:02 | OP.EGD_ITS ---
Patient Name: Karolina Canada Procedure Date: 08/06/2021 8:11 AM Date of : 1955 Age: 65 Procedure: Upper GI endoscopy Indications: Gastro-esophageal reflux disease Providers: Marlen Narvaez MD Medicines: Monitored Anesthesia Care Patient Profile: This is a 65 year old female. Complications: No immediate complications. Procedure: Pre-Anesthesia Assessment: - Prior to the procedure, a History and Physical was performed, and patient medications and allergies were reviewed. The patient's tolerance of previous anesthesia was also reviewed. The risks and benefits of the procedure and the sedation options and risks were discussed with the patient. All questions were answered, and informed consent was obtained. Prior Anticoagulants: The patient has taken aspirin, last dose was 1 day prior to procedure. ASA Grade Assessment: Per anesthesia. After reviewing the risks and benefits, the patient was deemed in satisfactory condition to undergo the procedure. After obtaining informed consent, the endoscope was passed under direct vision. Throughout the procedure, the patient's blood pressure, pulse, and oxygen saturations were monitored continuously. The gastroscope was introduced through the mouth, with the intention of advancing to the stomach. The scope was advanced to the pylorus before the procedure was aborted. Medications were given. The procedure was aborted due to the patient's respiratory instability. Pt repeatively desating did not allow for the successful completion of the procedure. The upper GI endoscopy was technically difficult and complex. The patient tolerated the procedure poorly due to the patient's respiratory instability. Scope In: 8:28:16 AM Scope Out: 8:32:27 AM Total Procedure Duration Time 0 hours 4 minutes 11 seconds Findings: no gross lesions seen in esophagus or stomach, due to pt desating repeatively procedure was aborted Impression: OTHER - No specimens collected. Recommendation: - Discharge patient to home. - Resume previous diet. - Continue present medications. Procedure Code(s): --- Professional --- 25368, 52, Esophagogastroduodenoscopy, flexible, transoral; diagnostic, including collection of specimen(s) by brushing or washing, when performed (separate procedure) Diagnosis Code(s): --- Professional --- K21.9, Gastro-esophageal reflux disease without esophagitis CPT copyright 2017 [employer]. All rights reserved. The codes documented in this report are preliminary and upon spinner fixer review may be revised to meet current compliance requirements. MD Marlen Miramontes MD 08/06/2021 9:01:13 AM This report has been signed electronically. Number of Addenda: 0 Note Initiated On: 08/06/2021 8:11 AM
--- NOTE | 2021-08-06 09:09 | OP.COLON_ITS ---
Patient Name: Karolina Canada Procedure Date: 08/06/2021 8:35 AM Date of : 1955 Age: 65 Procedure: Colonoscopy Indications: Diarrhea Providers: Marlen Narvaez MD Medicines: Monitored Anesthesia Care Patient Profile: This is a 65 year old female. This is a 65 year old female. Last Colonoscopy: 2018. Complications: No immediate complications. Procedure: Pre-Anesthesia Assessment: - Prior to the procedure, a History and Physical was performed, and patient medications and allergies were reviewed. The patient's tolerance of previous anesthesia was also reviewed. The risks and benefits of the procedure and the sedation options and risks were discussed with the patient. All questions were answered, and informed consent was obtained. Prior Anticoagulants: The patient has taken aspirin, last dose was 1 day prior to procedure. ASA Grade Assessment: Per anesthesia. After reviewing the risks and benefits, the patient was deemed in satisfactory condition to undergo the procedure. After I obtained informed consent, the scope was passed under direct vision. Throughout the procedure, the patient's blood pressure, pulse, and oxygen saturations were monitored continuously. The pediatric colonoscope was introduced through the anus and advanced to the cecum, identified by the appendiceal orifice, ileocecal valve and palpation. The colonoscopy was performed without difficulty. The patient tolerated the procedure well. The quality of the bowel preparation was good. Scope In: 8:35:32 AM Scope Withdrawal Time 0 hours 12 minutes 32 seconds Scope Out: 8:55:06 AM Total Procedure Duration Time 0 hours 19 minutes 34 seconds Findings: A less than 5 mm polyp was found in the descending colon. The polyp was sessile. The polyp was removed with a cold biopsy forceps. Resection and retrieval were complete. A less than 5 mm polyp was found in the rectum. The polyp was sessile. The polyp was removed with a cold biopsy forceps. Resection and retrieval were complete. Previous area of tattoo in sigmoid colon was normal Three random biopsies were obtained with cold forceps for histology. The perianal and digital rectal examinations were normal. Impression: - One less than 5 mm polyp in the descending colon, removed with a cold biopsy forceps. Resected and retrieved. - One less than 5 mm polyp in the rectum, removed with a cold biopsy forceps. Resected and retrieved. - Three random biopsies were obtained. Recommendation: - Discharge patient to home. - Resume previous diet. - Continue present medications. - Await pathology results. - Repeat colonoscopy in 5 years for surveillance based on pathology results. Procedure Code(s): --- Professional --- 67616, Colonoscopy, flexible; with biopsy, single or multiple Diagnosis Code(s): --- Professional --- K64.9, Unspecified hemorrhoids D12.4, Benign neoplasm of descending colon K62.1, Rectal polyp R19.7, Diarrhea, unspecified CPT copyright 2017 [employer]. All rights reserved. The codes documented in this report are preliminary and upon childcare administrator review may be revised to meet current compliance requirements. MD Marlen Miramontes MD 08/06/2021 9:09:07 AM This report has been signed electronically. Number of Addenda: 0 Note Initiated On: 08/06/2021 8:35 AM
--- NOTE | 2021-08-06 09:10 | OP.CCLET_ITS ---
08/06/2021 David Sy [address] [place] [address] Re : Colonoscopy procedure for Karolina Canada Dear Dr. Sy This procedure was performed on Friday, August 06, 2021. My impressions and recommendations are as follows: Impressions : - One less than 5 mm polyp in the descending colon, removed with a cold biopsy forceps. Resected and retrieved. - One less than 5 mm polyp in the rectum, removed with a cold biopsy forceps. Resected and retrieved. - Three random biopsies were obtained. Recommendations : - Discharge patient to home. - Resume previous diet. - Continue present medications. - Await pathology results. - Repeat colonoscopy in 5 years for surveillance based on pathology results. My findings are described in the full procedure note, which is enclosed. If I can be of further assistance, please feel free to contact me at Doctor phone number(s): , Work: . Sincerely, MD Marlen Miramontes MD 08/06/2021 9:09:07 AM This report has been signed electronically.
--- NOTE | 2021-08-06 09:15 | EGD_PTH ---
PATIENT: ANIRUDH SHELBY LOC: EN U#:[id number] AGE/SX: 65/F ROOM: RE08/06/[address]: Dr. Marlen Narvaez MD : 1955 BED: DIS: 08/06/2021 SPEC #: [id number] RECD: 08/06/21 11:11 STATUS: SCOTT RE #: [id number] BALDEV: 08/06/21 09:[address]: Marlen Narvaez DEPT: SURGICAL PATHOLOGY RECD BY: Dia Brooks ENTERED: 08/06/21 12:58 SP TYPE: EGD BIOPSY HEATH DR: Dr. Esdras Sy MD Tissues: A - COLON BIOPSY B - Sigmoid colon biopsy C - Rectum, NOS Procedures: Surgery Specimen Level IV HEADER OPERATION: Colonoscopy, EGD ([facility] [place]) PRE-OP DIAGNOSIS: Gastroesophageal reflux disease, diarrhea TISSUE SUBMITTED: A. Random colon biopsies, B. Biopsy of sigmoid polyp, C. Biopsy of rectum polyp MICROSCOPIC DIAGNOSIS A. Colon, random biopsy: No pathologic change. B. Sigmoid colon polyp, biopsy: Focal hyperplastic change. Focal acute colitis (single gland crypt abscess). C. Rectal polyp, biopsy: Hyperplastic polyp. AM:am 08/07/21 MICROSCOPIC DESCRIPTION Slides are reviewed. GROSS DESCRIPTION A. Received is one container labeled with the patient name and designated random colon biopsies. The specimen consists of multiple irregular fragments of light welsh soft tissue that together measure 0.8 x 0.6 x 0.1cm. The specimen is totally submitted in one cassette. B. Received is one container labeled with the patient name and designated sigmoid polyp. The specimen consists of multiple irregular fragments of light welsh soft tissue that together measure 0.5 x 0.5 x 0.1cm. The specimen is totally submitted in one cassette. C. Received is one container labeled with the patient name and designated rectum polyp. The specimen consists of one irregular fragment of light welsh soft tissue that measures 0.5 x 0.2 x 0.1cm. The specimen is totally submitted in one cassette. /AM:ana rosa 08/06/21 TC:5 [facility]: [id number]
== END 2021-08-06 09:57 | disposition home or self-care (01) ==
LOC: EN 07:24 → AC 07:25
PROVIDERS: PCP Family Medicine; Referring Provider Family Medicine; Visit Provider Surgery
PROC: 0DJD8ZZ Inspection of Lower Intestinal Tract, Via Natural or Artificial Opening Endoscopic (ICD-10-PCS; CPT 45378; principal; 2021-08-06 09:10)
DX: K52.9 Noninfective gastroenteritis and colitis, unspecified (principal); K21.9 Gastro-esophageal reflux disease without esophagitis; K62.1 Rectal polyp; J98.8 Other specified respiratory disorders; Z86.010 Personal history of colon polyps; M19.90 Unspecified osteoarthritis, unspecified site; I25.10 Atherosclerotic heart disease of native coronary artery without angina pectoris; F32.9 Major depressive disorder, single episode, unspecified; J45.909 Unspecified asthma, uncomplicated; F41.9 Anxiety disorder, unspecified; E11.9 Type 2 diabetes mellitus without complications; I10 Essential (primary) hypertension; E78.5 Hyperlipidemia, unspecified; Z87.891 Personal history of nicotine dependence; Z79.4 Long term (current) use of insulin; Z79.899 Other long term (current) drug therapy; Z99.81 Dependence on supplemental oxygen
CPT/HCPCS: 43235; 45380; 88305; J7120; J2405

== ENCOUNTER → 2021-08-07 15:05 | Outpatient (CLI) | payer MEDICARE, MEDICAID, SELFPAY ==
[2021-08-07 18:26] LABS: Mean Corp Hgb Conc 31.7 g/dL (32-36); Mean Corpuscular Hgb 27.5 pg (27.0-32.0); Mean Corpuscular Volume 86.7 fL (81-99); Mean Platelet Vol. 9.2 fl (6.2-12.0); Platelet Count 331 K/mm3 (150-450); RBC Distribution Width CV 15.6 % (11.6-14.6); RBC Distribution Width SD 49.4 fl (35.1-43.9); Red Blood Count 4.73 M/mm3 (4.2-5.4); White Blood Count 8.1 K/mm3 (4.4-11.0)
[2021-08-07 18:53] LABS: ALB/GLOB Ratio 0.7 RATIO (0.9-2.4); AST(SGOT) 18 U/L (15-37); Alanine Aminotransfer ALT/SGPT 23 U/L (13-56); Alkaline Phosphatase 94 U/L (45-117); Anion Gap 6 (5-15); BUN 9 mg/dL (7-18); BUN/Creat Ratio 10.6 RATIO (10-20); Chloride 103 mmol/L (98-107); Cholesterol 181 mg/dL (200); Creatinine, Serum 0.85 mg/dL (0.55-1.02); EST Glomerular Filtration Rate 71 mL/min (>60); Est Glom Filt Rate - Afr Amer 86 mL/min (>60); Globulin 4.6 g/dL (2.2-4.2); Glucose 53 mg/dL (74-106); High Density Lipoprotein 33 mg/dL; Potassium 3.6 mmol/L (3.5-5.1); Protein, Total 7.6 g/dL (6.4-8.2); Sodium Level 136 mmol/L (136-145); Triglycerides 207 mg/dL; Very Low Density Lipoprotein 41 mg/dL (5-40)
== END ==
PROVIDERS: PCP Family Medicine; Referring Provider Family Medicine; Visit Provider Family Medicine
DX: E11.65 Type 2 diabetes mellitus with hyperglycemia (principal); R42 Dizziness and giddiness
CPT/HCPCS: 36415; 80053; 80061; 84443; 85027

== ENCOUNTER → 2021-10-08 14:18 | Outpatient (CLI) | payer MEDICAID, MEDICARE, SELFPAY ==
[2021-10-08 18:10] LABS: Erythrocyte Sedimentation Rate 53 mm/hr (0-30)
== END ==
PROVIDERS: PCP Family Medicine; Referring Provider Family Medicine; Visit Provider Family Medicine
DX: K52.9 Noninfective gastroenteritis and colitis, unspecified (principal)
CPT/HCPCS: 36415; 85652

== ENCOUNTER → 2022-04-06 | Outpatient (CLI) | payer MEDICARE, SELFPAY ==
--- NOTE | 2022-04-06 14:03 | RAD_ITS ---
STUDY: X-RAY - CERVICAL SPINE REASON FOR EXAM: Female, 66 years old. CERVICALGIA TECHNIQUE: 6 view(s) of the cervical spine were obtained. COMPARISON: X-ray of the cervical spine dated November 04, 2015 FINDINGS: Normal anterior atlantoaxial articulation. Normal odontoid process. Normal cervical lordosis. Mild displaced narrowing at C5-C6. Moderate disc space narrowing at C6-C7. Small to moderate size anterior osteophytes from C3-C4 down to C6-C7. There is moderate multi-level left-sided osseous foraminal stenosis. The soft tissue structures are unremarkable. RAD/Cerv Spine 4 or 5 Views IMPRESSION: 1. Multilevel degenerative changes of the visualized cervical spine. Electronically Signed: Geovany El MD at 8:10 EDT ,
[2022-04-06 15:24] LABS: Hematocrit 44.8 % (37-47); Hemoglobin 14.1 g/dL (12.0-15.0); Mean Corp Hgb Conc 31.5 g/dL (32-36); Mean Corpuscular Volume 85.8 fL (81-99); Mean Platelet Vol. 9.2 fl (6.2-12.0); Platelet Count 363 K/mm3 (150-450); RBC Distribution Width CV 15.6 % (11.6-14.6); RBC Distribution Width SD 48.4 fl (35.1-43.9); Red Blood Count 5.22 M/mm3 (4.2-5.4); White Blood Count 9.9 K/mm3 (4.4-11.0)
[2022-04-06 16:31] LABS: ALB/GLOB Ratio 0.7 RATIO (0.9-2.4); AST(SGOT) 18 U/L (15-37); Alanine Aminotransfer ALT/SGPT 23 U/L (13-56); Albumin, Serum 3.5 g/dL (3.2-5.0); Alkaline Phosphatase 123 U/L (45-117); Anion Gap 10 (5-15); BUN 9 mg/dL (7-18); BUN/Creat Ratio 9.1 RATIO (10-20); Calcium,Total 9.6 mg/dL (8.5-10.1); Chloride 100 mmol/L (98-107); Cholesterol 226 mg/dL (200); Creatinine, Serum 0.99 mg/dL (0.55-1.02); EST Glomerular Filtration Rate 60 mL/min (>60); Est Glom Filt Rate - Afr Amer 73 mL/min (>60); Globulin 4.7 g/dL (2.2-4.2); Glucose 152 mg/dL (74-106); High Density Lipoprotein 37 mg/dL; Potassium 3.8 mmol/L (3.5-5.1); Protein, Total 8.2 g/dL (6.4-8.2); Sodium Level 135 mmol/L (136-145); Thyroid Stim Hormone (TSH) 1.31 uIU/mL (0.358-3.74); Triglycerides 235 mg/dL; Very Low Density Lipoprotein 47 mg/dL (5-40)
[2022-04-06 16:42] LABS: Vitamin B12 537 pg/mL (211-911); Vitamin D,25 Hydroxy 39.2 ng/mL
== END | disposition home or self-care (01) ==
PROVIDERS: PCP Family Medicine; Referring Provider Family Medicine; Visit Provider Family Medicine
DX: M54.2 Cervicalgia (principal); E11.65 Type 2 diabetes mellitus with hyperglycemia; I25.810 Atherosclerosis of coronary artery bypass graft(s) without angina pectoris; E53.8 Deficiency of other specified B group vitamins; E55.9 Vitamin D deficiency, unspecified
CPT/HCPCS: 36415; 72050; 80053; 80061; 82306; 82607; 84443; 85027

== ENCOUNTER 2022-05-06 12:30 | Outpatient (RCR) | payer MEDICARE, MEDICAID, SELFPAY ==
--- NOTE | 2022-04-15 17:18 | HP.PTEVAL_ITS ---
Patient's Visit Information ANIRUDH SHELBY is a 66 year old F referred to Physical Therapy by Dr. David Sy MD with a diagnosis of Cervical DDD. Date of Evaluation: 04/15/22 Physical Therapist: Suze Roach DPT - Visit Plan Frequency: 2x /Week Duration: 4 Weeks Plan: Posture! Decrease forward head position. HEP Given: postural education, scap retraction and supine chin tucks pillow-GENTLE - Subjective Patient reports that MD told her she has DDD- her neck has been bothering her for a long time- she just can't get anyone to do anything about it. She has had injections but she is allergic to cortisone- last ones were over a year ago. The injections in her neck were not helping. Patient reports that she has severe pain on the right side- can effect the shoulder if its really bad but not most of the time. Worst: 8/10 Agg: sleeping on that side Eases: nothing Best: 10. Mostly dull and achy but does get shooting pains. Does have pain that radiates to the fingers. Right hand dominate. She has had surgery on her left shoulder due to a bone spur. Sleep: disturbed- wakes her up- side sleeper. X- ray report: Normal cervical lordosis. Mild displaced narrowing at C5-C6. Moderate disc space narrowing at C6-C7. Small to moderate size anterior osteophytes from C3-C4 down to C6-C7. There is moderate multi-level left-sided osseous foraminal stenosis. No MRI at this time. Has not seen a chiro or massage therapist. Has noticed a lot of weakness due to removal of 10% of her lung due to cancer. Does have dizziness but thinks its coming from her blocked arteries in her neck. 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 She does mow her grass (riding) but does sit a lot. PMHx/ Meds: no changes since Dr. Mancilla (11/18) - Objective Posture: FH, RS- can correct but does not maintain. Gait: no deviation- good arm swing and trunk rotation. Palpation: tender along upper trap from occiput to tip of acromion, middle traps, rhomboids- Significant discomfort with PA glides throughout, occipital release increases pain. Sensation: WFL to gross touch in bilateral UE. ROM: Cervical: flexion: WFL, Extn: neutral, SB Left: diminished by 75% SB Right: diminished by 75% with pain, Rot Left: diminished by 75% with pain, Left Rot: diminished by 75% , Shoulder: WFL in all planes, Elbow/Wrist/hand: WFL. Strength: Scap: poor, Shoulder: 4/5 in neutral, Elbow: 4+/5 Wrist: 5/5 Hand: WFL. Flex: UT: severe, Levator: Severe - Special Tests C/S Radiculapathy - Left Spurlings: Positive C/S Radiculapathy - Right Spurlings: Positive C/S Radiculapathy - Left Cervical distraction: Positive C/S Radiculapathy - Right Cervical distraction: Positive - Balance/Special Test Scores Oswestry Neck Score: 21 - Goals Goal 1:: Patient will be I with HEP and progression Goal Time Frame: 4-6 Weeks Goal 2:: Patient will maintain proper posture t/o tx session to demo increase scap s/s. Goal Time Frame: 4-6 Weeks Goal 3:: Patient will report no pain for 1 week Goal Time Frame: 4-6 Weeks Goal 4:: Patient will report 80% improvement Goal Time Frame: 4-6 Weeks - Rehabilitation Potential Physical Therapy Diagnosis: Patient presents with hypomobility- she has decreased pain free ROM in the cervical spine and UE, scapular s/s and muscular endurance leading to poor posture and increased pain with ADL's. Rehabilitation Potential: Good - Anticipated Interventions Patient/Client Instruction: Educate patient on: Benefits of Fitness Program Therapeutic Exercise to Include: Strength training, Endurance training, Coordination, Agility training, Body mechanics, Postural training, Flexibilty training, Passive ROM, Active ROM, Dynamic Lumbar Stabilization, Scapular Strength/Stabilization For the Purpose of:: To improve muscle performance and motor function TENS: No Cryotherapy (ice pack, ice massage): Yes Thermo therapy (hot pack): Yes Ultrasound (thermal/non thermal): Yes Thank you for the opportunity to evaluate your patient. For Medicare and Medicare HMO plans, please review the plan of care and approve it. It will need to be FAXED BACK to us at [phone] for Medicare purposes. For Medicare only, by signing this I certify the plan of care. Please let me know if there are questions or concerns regarding this plan of care. Physician Signature: Date:
== END 2022-05-06 19:00 | disposition home or self-care (01) ==
LOC: PT 12:30
PROVIDERS: PCP Family Medicine; Referring Provider Family Medicine; Visit Provider Family Medicine
DX: M50.322 Other cervical disc degeneration at C5-C6 level (principal)
CPT/HCPCS: 97035; 97110; 97140; 97162

== ENCOUNTER → 2022-05-19 | Outpatient (CLI) | payer MEDICARE, MEDICAID, SELFPAY ==
--- NOTE | 2022-05-19 19:02 | STRESSREP ---
Stress Test Report Pharmacologic myocardial perfusion stress test. 66-year-old lady with a history of chest pain. Stress protocol: Resting EKG demonstrates normal sinus rhythm with a rate of 90 bpm normal intervals are noted resting blood pressure is 148/78 mmHg. 0.4 mg of regadenoson was infused per usual protocol followed Intravenous saline flush injection continuous EKG monitoring was performed. The maximum heart rate attained was 107 bpm which was 69% of max impacted heart rate the maximum workload was 1 metabolic equivalent. At rest there were no ST or T wave changes noted to suggest abnormal flow reserve. At peak infusion nonspecific ST changes were noted with did not meet the criteria for ischemia. Myocardial perfusion protocol. 11.1 mCi of technetium 99m sestamibi was injected at rest. 0.4 mg of regadenoson was infused per usual protocol. At peak infusion 33.4 mCi of technetium 99m sestamibi was injected stress images were obtained stress and rest images were reconstructed and compared in the short axis vertical long and horizontal long axis. Gated images were also obtained. Perfusion SPECT analysis: Review of the stress images demonstrate normal uptake of tracer noted in all areas of the myocardium. The resting images similar demonstrate normal uptake of tracer noted in all areas of the myocardium. No areas of reversibility are noted to suggest ischemia and no previous infarct is noted. Gated SPECT analysis: The gated ejection fraction is noted to be 54%. Conclusion: Normal pharmacologic myocardial perfusion stress test. Preserved ejection fraction.
== END | disposition home or self-care (01) ==
LOC: CVS 06:25
PROVIDERS: PCP Family Medicine; Referring Provider Nurse Practitioner Gerontology; Visit Provider Nurse Practitioner Gerontology
DX: I25.10 Atherosclerotic heart disease of native coronary artery without angina pectoris (principal); R07.89 Other chest pain; R53.83 Other fatigue
CPT/HCPCS: 78452; 93017; A9500; A4216; J2785

== ENCOUNTER → 2022-05-22 | Outpatient (CLI) | payer MEDICARE, MEDICAID, SELFPAY ==
--- NOTE | 2022-05-22 12:58 | CDU_ITS ---
Reason For Study: Carotid Stenosis Rt. Velocities/BP Lt. Velocities/BP Prox CCA 58.2/11.2 cm/sec. Prox CCA 68.8/14.9 cm/sec. Mid CCA 68.6/13.8 cm/sec. Mid CCA 78.8/16 cm/sec. Dist CCA 66/11.2 cm/sec. Dist CCA 72.1/9.4 cm/sec. Prox ICA 128.6/40.8 cm/sec. Prox ICA 85.1/26.7 cm/sec. Mid ICA 141.8/29.8 cm/sec. Mid ICA 94.2/23 cm/sec. Dist ICA 80.3/23.3 cm/sec. Dist ICA 86.9/24.8 cm/sec. Rt. ICA/CCA = 1.95. Lt. ICA/CCA = 1.21. Prox ECA 122.0/12.3 cm/sec. Prox ECA 92.4/6.6 cm/sec. Rt. Vert. 32.7/6.2 cm/sec. Lt. Vert. 37.2/8.4 cm/sec. Right Extracranial There is heterogeneous, irregular atherosclerotic plaque noted in the right common carotid artery. There is heterogeneous, irregular atherosclerotic plaque noted in the right internal carotid artery. There is homogeneous, smooth atherosclerotic plaque noted in the right external carotid artery. Antegrade flow is noted in the right vertebral artery. Left Extracranial There is heterogeneous, irregular atherosclerotic plaque noted in the left common carotid artery. There is heterogeneous, irregular atherosclerotic plaque noted in the left internal carotid artery. There is heterogeneous, irregular atherosclerotic plaque noted in the left external carotid artery. Antegrade flow is noted in the left vertebral artery. Procedure Carotid Duplex 16774. This is a Carotid Duplex examination using B-mode, color flow and specral Doppler. Exam performed in department. VL/Carotid Duplex Ultrasound Interpretation Summary Irregular calcific plaque with shadowing at the proximal right internal carotid artery with 50 to 69% stenosis Less than 50% stenosis right external carotid artery Lesser degree of irregular plaque at the proximal left internal carotid artery with less than 50% stenosis. Less than 50% stenosis left external carotid artery Patent and antegrade vertebral arteries bilaterally No change from the previous examination of December 04, 2020 Ordering Physician: Ye Olson Referring Physician: David Sy Performed By: Brian Coffey
== END | disposition home or self-care (01) ==
PROVIDERS: PCP Family Medicine; Referring Provider Family Medicine; Visit Provider Family Medicine
DX: I65.23 Occlusion and stenosis of bilateral carotid arteries (principal)
CPT/HCPCS: 93880

== ENCOUNTER 2022-07-07 14:47 | Outpatient (CLI) | payer MEDICARE, MEDICAID, SELFPAY ==
--- NOTE | 2022-07-07 14:50 | RAD_ITS ---
STUDY: X-RAY CHEST REASON FOR EXAM: Female, 66 years old. Hemoptysis. Cough and congestion for 2 weeks. TECHNIQUE: PA and lateral views of the chest. COMPARISON: 03/13/2019 FINDINGS: The lungs are well expanded. There is a small nodular density along the left diaphragmatic surface on the AP film which appears to lie along the posterior pleural surface on the lateral image. This is unchanged. No new mass or infiltrate. There is no demonstrated pleural abnormality. Sternal cerclage wires are present from a prior sternotomy. The heart is normal in size. Normal mediastinum and pili. Normal visualized pulmonary arteries. There is atherosclerotic calcification of the aortic arch with tortuosity. Normal visualized thoracic spine. There is a suture anchor in the left humeral head suggesting prior surgery. There is no demonstrated abnormality of the visualized soft tissue structures of the upper abdomen. RAD/Chest PA and Lateral IMPRESSION: 1. Old granulomatous disease without acute infiltrate or mass. 2. No other interval change. Electronically Signed: Mikel Hernandez DO at 23:14 EDT ,
[2022-07-07 18:13] LABS: Absolute Lymphocyte Count 3.01 X10^3/uL (0.83-4.51); Absolute Neutrophil Count 8.6 X10^3/uL (2.0-7.7); Basophil% 0.8 % (0-1); Eosinophil# 0.12 X10^3/uL; Eosinophils% 0.9 % (0-5); Hematocrit 44.1 % (37-47); Hemoglobin 14.1 g/dL (12.0-15.0); Lymphocyte # 3.01 X10^3/ul (0.83-4.51); Lymphocyte % 23.8 % (19-41); Mean Corpuscular Hgb 27.3 pg (27.0-32.0); Mean Corpuscular Volume 85.5 fL (81-99); Mean Platelet Vol. 9.4 fl (6.2-12.0); Monocyte# 0.82 X10^3/uL; Monocyte% 6.5 % (0-10); NRBC Flagged by Analyzer 0 % (0-5); Neutrophil # 8.55 X10^3/uL (2.7-7.7); Neutrophil % 67.5 % (47-70); Platelet Count 373 K/mm3 (150-450); RBC Distribution Width CV 15.6 % (11.6-14.6); RBC Distribution Width SD 48.6 fl (35.1-43.9); Red Blood Count 5.16 M/mm3 (4.2-5.4); White Blood Count 12.7 K/mm3 (4.4-11.0)
[2022-07-07 18:29] LABS: Erythrocyte Sedimentation Rate 37 mm/hr (0-30)
[2022-07-07 18:34] LABS: ALB/GLOB Ratio 0.8 RATIO (0.9-2.4); AST(SGOT) 18 U/L (15-37); Alanine Aminotransfer ALT/SGPT 23 U/L (13-56); Albumin, Serum 3.7 g/dL (3.2-5.0); Alkaline Phosphatase 119 U/L (45-117); Anion Gap 8 (5-15); BUN 10 mg/dL (7-18); BUN/Creat Ratio 9.7 RATIO (10-20); Calcium,Total 9.4 mg/dL (8.5-10.1); Chloride 97 mmol/L (98-107); Creatinine, Serum 1.03 mg/dL (0.55-1.02); EST Glomerular Filtration Rate 57 mL/min (>60); Est Glom Filt Rate - Afr Amer 69 mL/min (>60); Ferritin 40 ng/mL (8-252); Globulin 4.5 g/dL (2.2-4.2); Glucose 172 mg/dL (74-106); Iron 62 ug/dL (50-170); Potassium 3.9 mmol/L (3.5-5.1); Protein, Total 8.2 g/dL (6.4-8.2); Sodium Level 133 mmol/L (136-145); Thyroid Stim Hormone (TSH) 2.63 uIU/mL (0.358-3.74)
[2022-07-07 18:36] LABS: BNP,B-Type NATRIURETIC PEPTIDE 75.2 pg/mL (0-100)
[2022-07-17 11:52] LABS: Cotinine Screen Blood 87.3 ng/mL (.)
== END 2022-07-07 23:59 | disposition home or self-care (01) ==
LOC: MTLAB 14:49
PROVIDERS: PCP Family Medicine; Referring Provider Family Medicine; Visit Provider Family Medicine
DX: J44.1 Chronic obstructive pulmonary disease with (acute) exacerbation (principal); E11.9 Type 2 diabetes mellitus without complications; R04.2 Hemoptysis; R07.9 Chest pain, unspecified; R19.7 Diarrhea, unspecified; R05.9 Cough, unspecified; R06.02 Shortness of breath
CPT/HCPCS: 36415; 71046; 80053; 80323; 82728; 83540; 83880; 84443; 85025; 85652

== ENCOUNTER → 2022-07-08 | Outpatient (CLI) | payer MEDICARE, MEDICAID, SELFPAY ==
[2022-07-08 17:51] LABS: Erythrocyte Sedimentation Rate 48 mm/hr (0-30)
[2022-07-08 18:29] LABS: Osmolality, Serum 291 mOsm/KG (280-301)
[2022-07-08 19:54] LABS: Urine Sodium 14 mmol/L (Not Establ.)
[2022-07-10 14:09] LABS: PROEL- Albumin 3.5 g/dL (2.9-4.4); PROEL- Alpha-1 Globulin 0.3 g/dL (0.0-0.4); PROEL- Alpha-2 Globulin 1.2 g/dL (0.4-1.0); PROEL- Gamma Globulin 0.9 g/dL (0.4-1.8); PROEL- Globulin, Total 3.4 g/dL (2.2-3.9); PROEL- TOTAL PROTEIN 6.9 g/dL (6.0-8.5)
[2022-07-13 22:09] LABS: PROELU- Albumin, Urine 41.4 % (.); PROELU- Alpha-1-Globulin,Ur 1.8 % (.); PROELU- Alpha-2-Globulin,Ur 15.3 % (.); PROELU- Beta Globulin, Ur 25.6 % (.); Total Protein, Ur 44.8 mg/dL (Not Estab.)
== END | disposition home or self-care (01) ==
PROVIDERS: PCP Family Medicine; Referring Provider Family Medicine; Visit Provider Family Medicine
DX: R19.7 Diarrhea, unspecified (principal)
CPT/HCPCS: 36415; 83630; 83930; 84165; 84166; 84300; 85652; 87177; 87209; 87493

== ENCOUNTER → 2022-07-13 | Outpatient (CLI) | payer MEDICARE, MEDICAID, SELFPAY | END | disposition home or self-care (01) | PROVIDERS: PCP Family Medicine; Visit Provider Family Medicine | DX: K52.9 Noninfective gastroenteritis and colitis, unspecified (principal) | CPT/HCPCS: 87177; 87209 ==

== ENCOUNTER → 2022-08-04 | Outpatient (CLI) | payer MEDICARE, MEDICAID, SELFPAY ==
--- NOTE | 2022-08-05 10:01 | PFT ---
INTRODUCTION: The patient is a 66-year-old female that presents for pulmonary function studies secondary to a diagnosis of COPD. Respiratory therapy reported good patient effort. Bronchodilators were used during testing. INTERPRETATION: Forced expiration spirometry demonstrates the presence of a mild large airways obstructive ventilatory defect. There was no significant response to aerosolized bronchodilators. Spirograms are of good quality but do not plateau indicating slow emptying of the lungs. Body plethysmography was performed and revealed a decreased TLC to 3.71 L, 77% of predicted, indicative of a mild restrictive ventilatory impairment. The remainder of the lung volumes are symmetrically reduced. Diffusing capacity by single breath CO is reduced at 45% of predicted. IMPRESSION: Irreversible mild mixed ventilatory defect with disproportionate moderate reduction in diffusing capacity.
== END | disposition home or self-care (01) ==
LOC: PSN 12:45
PROVIDERS: PCP Family Medicine; Referring Provider Family Medicine; Visit Provider Family Medicine
DX: J44.1 Chronic obstructive pulmonary disease with (acute) exacerbation (principal)
CPT/HCPCS: 94060; 94726; 94729

== ENCOUNTER 2022-08-07 06:13 | Day surgery (SDC) | payer MEDICARE, MEDICAID, SELFPAY ==
[2022-08-06 08:46] VITALS: BMI 25.7
--- NOTE | 2022-08-06 21:05 | HP.PCM_ITS ---
History and Physical Date of Admission: 08/07/22 This is a 66-year-old female who presents here today for a heart catheterization.? She does have an extensive cardiac history.? In 2006, she had a myocardial infarction where she had bare-metal stenting done to her RCA.? She was readmitted in March 2007 where she underwent bypass surgery.? She had an CALIX to the LAD, SVG to the obtuse marginal, sequential SVG to the distal RCA and PDA.? In 2015 she had stenting to her obtuse marginal.? In May 2019 she had chest discomfort.? She underwent a heart catheterization left main trunk which was normal, the left anterior descending artery had mild luminal irregularities, the circumflex artery had luminal irregularities in the right coronary artery had a proximal 70% ostial narrowing.? There was severe disease involving the mashpee right coronary artery, ostial disease in-stent stenosis of the mid right coronary artery prior to the stent.? The saphenous vein graft to the posterior descending artery and circumflex arteries were occluded, the left internal mammary artery to the left anterior descending artery was patent with significant competitive flow from the left anterior descending artery.? It was decided that she should undergo a functional stress test to determine whether the right coronary artery was with intervening upon.? She subsequently underwent a pharmacologic myocardial perfusion stress test which did not demonstrate any evidence of ischemia in this region.? Medical therapy was therefore recommended. From a cardiac standpoint, the patient is doing well. She does have an occasional palpitation. She describes this as a hard pump. She does have chest heaviness/pressure with exertion. This is located midsternum, and will last for a few minutes. She does have dizziness with this as well. She does have SOB with exertion-this is worsening.? She denies Orthopnea, and PND. She does not have bleeding issues; no blood in urine, stool or nosebleeds. She does have increased fatigue.? She denies? myalgias, or claudication.? She does not have edema, or sudden weight gain. She states that she has dizziness with positional changes, as well as looking up, and dull headaches. She denies syncopal or near syncopal episodes. She states that she is scheduled for a carotid duplex on 05/22/22. She had stress test on 05/19/22 that was negative for ischemia. Intake Vital Signs: See EMR ? 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 Is patient in pain?: No Allergies codeine Allergy (Verified 05/07/22 13:39) Hivesfluticasone propionate [From Flonase] Allergy (Verified 05/07/22 13:39) Hivesmometasone furoate [From Nasonex] Allergy (Verified 05/07/22 13:39) HivesPenicillins Allergy (Verified 05/07/22 13:39) Hivessitagliptin phosphate [From Januvia] Allergy (Verified 05/07/22 13:39) HivesSulfa (Sulfonamide Antibiotics) Allergy (Verified 05/07/22 13:39) Hivestramadol Allergy (Verified 05/07/22 13:39) Hivesvenlafaxine HCl [From Effexor] Allergy (Verified 05/07/22 13:39) Hivescortisone Adverse Reaction (Verified 05/07/22 13:39) Otherdesvenlafaxine succinate [From Pristiq] Adverse Reaction (Verified 05/07/22 13:39) Otherfluoxetine HCl [From Prozac] Adverse Reaction (Verified 05/07/22 13:39) Vomitinggabapentin [From Neurontin] Adverse Reaction (Verified 05/07/22 13:39) Vomitinghydrochlorothiazide Adverse Reaction (Verified 05/07/22 13:39) Otherhydrocodone bitartrate [From Vicodin] Adverse Reaction (Verified 05/07/22 13:39) Vomitinglisinopril Adverse Reaction (Verified 05/07/22 13:39) Otherlosartan [Losartan] Adverse Reaction (Verified 05/07/22 13:39) Otheroxycodone HCl [From OxyContin] Adverse Reaction (Verified 05/07/22 13:39) Otherpioglitazone HCl [From Actos] Adverse Reaction (Verified 05/07/22 13:39) Vomitingpropoxyphene napsylate [From Darvocet-N] Adverse Reaction (Verified 05/07/22 13:39) Vomitingtizanidine Adverse Reaction (Verified 05/07/22 13:39) Other Medications See EMR PFSH Medical History? 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) On home oxygen therapy Osteoarthritis Reflux esophagitis RLS (restless legs syndrome) Tubular adenoma of colon Type 2 diabetes mellitus Ventral hernia Wears dentures Wears glasses Surgical History?(Reviewed 05/07/22 @ 13:39 by Casi Verma ARTIFICIAL TEETH INSPECTOR, ARTIFICIAL TEETH INSPECTOR-C) Abnormal colonoscopy (01/10/18) H/O coronary artery bypass surgery (04/03/07) History of appendectomy History of arthroscopy of right knee History of bilateral carpal tunnel release History of cardiac catheterization History of cholecystectomy History of coronary artery stent placement (01/27/16) History of esophagogastroduodenoscopy (EGD) History of hysterectomy History of inguinal hernia repair, bilateral History of laparoscopy History of lung surgery (03/2021) History of rotator cuff surgery Hx of colonoscopy Status post laparoscopic cholecystectomy Family History? Father Cancer ?? ? boneGrandfather CancerGrandmother CancerOther Heart disease Social History? Smoking Status:? Former smoker how long ago did patient quit smoking:? 14 years ago alcohol intake:? never substance use type:? marijuana caffeine:? Yes Type: coffee Number of servings: 3 ROS Const Const: Positive for fatigue; Negative for weakness, fever(s), headache(s), chills, frequent falls, weight gain or weight loss Eyes Eyes: Negative for blind spots, loss of peripheral vision, transient loss of vision, blurry vision, change in vision, double vision, floaters or tunnel visi on ENT ENT: Positive for dizziness; Negative for headache(s), Nosebleed/epistaxis, balance problems or neck pain Cardio Chest Pain: Yes Frequency: weekly Character: other (heaviness/pressure) Onset: exercise Location: mid sternal Duration: minutes Exacerbation: exercise Relieving: rest Palpitations: Yes (occasional) feels like its: thumping Edema: None Muscle aches with walking: None Resp Respiratory: Positive for SOB with activity (worsening); Negative for SOB at rest or SOB orthopnea\SOB lying down GI GI: Negative nausea, vomiting, heartburn, bloating, vomiting blood/hematemesis, bright, red blood in stools or black,tarry stools Musc Musc: Negative for muscle aches/ myalgia, muscle weakness, joint pain or balance problems Neuro Neuro: Positive for dizziness; Negative for lightheadedness, near syncope, syncope, orthostatic symptoms, freq uent falls, headache(s), weakness, blurry vision or double vision Lavon Hematologic/Lymphatic: Negative for easy bleeding or easy bruising Endo Endo: Positive for fatigue Cardiology Exam Const Appearance: cooperative and no acute distress Orientation: alert and oriented x3 Head Head: normal to inspection Ears: hearing grossly normal bilaterally Nose: external nose normal Face and Sinus: face symmetric Eyes General: appearance normal, both eyes and all related structures Eyelids: eyelids normal Conjunctivae: conjunctivae normal Pupils: PERRL and pupil size EOM: EOM intact bilaterally Neck Neck: normal visual inspection Carotids: Negative bruit Chest Chest inspection: normal inspection of the chest and normal respiratory effort Auscultation: Bilateral: Clear to Auscultation Cardio Palpation: normal PMI Rate: regular rate Rhythm: regular rhythm Heart sounds: S1 normal and S2 normal; Negative rub, gallop or murmur GI GI: normal to inspection and soft; Negative no hepatosplenomegaly Neuro General: patient alert, patient oriented x3 and CN's II-XI intact bilaterally Skin Skin: no rashes or lesions noted Extremities Pulses: Normal: Right Posterior Tibial Pulse, Left Posterior Tibial Pulse, Right Radial Pulse and Left Radial Pulse Lower Extremity Edema: None: Bilateral Psych Psychological: normal affect Supplemental Info Supplemental Information Echocardiogram 08/08/2020: Interpretation Summary Normal LV size. The estimated ejection fraction is 60 %. Structurally normal valves. Stress test from 05/19/22: Conclusion: Normal pharmacologic myocardial perfusion stress test. Preserved ejection fraction. Stress Test 12/23/2017: Pharmacologic? myocardial perfusion stress test. 62-year-old lady with a history of coronary artery bypass surgery and coronary artery stenting. Stress protocol: The EKG demonstrates normal sinus rhythm with a rate of 67 bpm.? Resting blood pressure is 158/76 centimeters of mercury.? 0.4 mg of regadenoson was infused per usual protocol followed by rapid intravenous saline flush injection.? Continuous EKG monitoring was performed.? The maximum heart rate attained was 120 bpm which was 75% of the maximum predicted heart rate the maximum workload attained was 1 metabolic equivalent.? At rest there were no ST or T-wave changes noted to suggest abnormal flow reserve at peak infusion no ST or T-wave changes were noted to suggest abnormal flow reserve.? The resting blood pressure is 158/76 with a peak blood pressure 178/80 mmHg. Myocardial? perfusion protocol. 10.6 mCi of technetium 99m sestamibi was injected at rest.? 0.4 mg of regadenoson was infused per usual protocol.? Peak infusion 31.8 mCi of technetium 99m sestamibi was injected.? Stress images were obtained.? Stress and rest images were reconstructed and compared in the short axis vertical long and horizontal long axis.? Gated images were also obtained. Perfusion SPECT analysis: Review of the stress images demonstrate normal uptake of tracer noted in all areas of the myocardium.? The resting images demonstrate normal uptake of tracer in all areas of the myocardium.? No ischemia is present. Gated SPECT analysis: The ejection fraction is noted to be 63%. Conclusion Normal pharmacologic myocardial perfusion stress test. Preserved ejection fraction. Labs: ?? ? LDL Cholesterol 142 mg/dL (0-130)? H ?? ? HDL Cholesterol 37 mg/dL (40-) L ?? ? Triglycerides 235 mg/dL (-199) H ?? ? VLDL Cholesterol 47 mg/dL (5-40)? H Diagnostics: ?? ? No Data to Display Pulmonary: ?? ? No Data to Display Assessment and Plan Assessment and Plan (1) Chest heaviness: ?Status:?Acute ? ? ? Orders:?Orders: ?Plan - Casi Verma ARTIFICIAL TEETH INSPECTOR, ARTIFICIAL TEETH INSPECTOR-C: Patient has complaints of chest heaviness/pressure with exertion. Despite the negative stress test from 05/19/22, she will proceed with [facility] to assess ongoing chest pain. Based on results of testing, further recommendation will be made. (2) Fatigue: ?Status:?Acute ? ? ? Orders:?Orders: ?Plan - Casi Verma NP, ARTIFICIAL TEETH INSPECTOR-C: Patient has complaints of increased fatigue, and she states she feels like she did prior to her previous cardiac event. The [facility] will assess CAD component. 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 ? ? Orders:?Orders: ?Lala Verma ARTIFICIAL TEETH INSPECTOR, ARTIFICIAL TEETH INSPECTOR-C: Patient has a history of coronary artery disease with bypass surgery in 2006. She has complaints of fatigue, chest heaviness/pressure and shortness of breath with exertion.? We will proceed with [facility] and based on results, further recommendation will be made. ?Status:?Chronic ?Comment: 50-69% 11/2019 ?Lala Verma NP, ARTIFICIAL TEETH INSPECTOR-C: Patient has a history of right carotid artery stenosis. She does have complaints of dizziness. Carotid duplex from 05/22/22 showed no change from the previous examination of December 04, 2020 (5) Essential (primary) hypertension: ?Status:?Chronic ?Lala Verma NP, ARTIFICIAL TEETH INSPECTOR-C: Patient has a history of hypertension. Her blood pressure is well controlled at this time. She will continue with her current medical therapy, along with monitoring her blood pressures at home. (6) Hyperlipemia: ?Status:?Chronic ?Lala Verma NP, ARTIFICIAL TEETH INSPECTOR-C: Patient has a history of hyperlipidemia. Her PCP monitors this. She will be asked to increase her atorvastatin to 80mg daily, along with aggressive risk factor and lifestyle modifications.
--- NOTE | 2022-08-07 09:13 | CL.D_ITS ---
Patient Name: ANIRUDH SHELBY Study Date: 08/07/2022 Performing: Chase Mancilla MD Ht: 64 inches 162.56 cm : 1955 Wt: 150 lbs 68.04 kg Age: 66 Gender: female BSA: 1.73 PROCEDURE(S) PERFORMED DC03-(05992)LHC/COR/LV/CABG CLINICAL PROFILE AND INDICATIONS Indications: Worsening Angina Heart Failure: None Stress/Imaging Date: 05/20/22Stress Test with SPECT MPI: Negative CAD Presentations: Stable angina. 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 The LAD and the circumflex artery appeared to be reasonably patent with competitive flow from the LAD to their CALIX. No high-grade stenosis are noted in these 2 vessels. RECOMMENDATIONS Medical therapy DESCRIPTION OF PROCEDURE The patient arrived to the procedure lab. The risks and benefits of the procedure as well as a full description of our services here and current unavailability of surgical backup were fully explained to the patient and/or their significant other prior to the catheterization. The Timeout was completed, verifying the correct patient and procedure. The patient's procedural site was prepped and draped in the usual fashion. . Using a modified Seldinger technique, arterial access was obtained via the right femoral artery, a 5Fr sheath was inserted. Left Coronary Artery selective angiography was performed in multiple views using a 5 Fr. JL4 catheter. Right Coronary Artery selective angiography was then performed in multiple views using a 5 Fr. 3DRC (Bill) catheter. Saphenous Vein graft to the OM 1 selective angiography was performed in multiple views using a 5 Fr. 3DRC (Bill) catheter. Left internal mammary artery graft to the LAD selective angiography was performed in multiple views using a 5 Fr. 3DRC (Bill) catheter. Left Ventriculography was performed in ARMSTRONG projection using a 5 Fr. Pigtail catheter. LV to AO pullback pressures were then recorded.The arterial sheath was pulled and manual compression applied until hemostasis is achieved. CORONARY ANGIOGRAPHY DOMINANCE: Right Dominant LEFT HEART ASSESSMENT Left Ventricular Ejection Fraction: by LV Gram 65 % Normal LV wall motion Normal Left Ventricular systolic function LEFT MAIN: Angiographically normal LEFT ANTERIOR DESCENDING ARTERY: Mild luminal irregularities less than 30% CIRCUMFLEX ARTERY: Mild luminal irregularities OM 2: Mid - Diffusely diseased up to 60 % RIGHT CORONARY ARTERY: Diffusely diseased up to 75 % GRAFTS: Saphenous Vein graft to the RPDA is totally occluded Saphenous Vein graft to the Mid CIRC is totally occluded CALIX graft to the Mid LAD Almost atretic and nonfunctional. COMPLICATIONS No Complications PROCEDURE MEDICATIONS Versed 1 mg IV Fentanyl 50 mcg IV Versed 1 mg IV Oxygen: 2 L/min via nasal cannula SUMMARY OF HEMODYNAMIC DATA Time AIR REST ECG 07:10:21 AO 143/60 (91) SA 08:42:57 LV 111/-3, 2 08:54:09 LV 119/-1, 2 08:54:17 LV 112/0, 5 08:54:50 LV 112/1, 6 08:54:56 LVp 116/-1, 7 08:55:00 AOp 119/45 (75) 08:55:05 09:10:50 Signed By Chase Mancilla MD On 08/07/2022 09:12:59 Chase Mancilla MD
== END 2022-08-07 14:17 | disposition home or self-care (01) ==
PROVIDERS: PCP Family Medicine; Referring Provider Internal Medicine Cardiovascular Disease; Visit Provider Internal Medicine Cardiovascular Disease
DX: I25.118 Atherosclerotic heart disease of native coronary artery with other forms of angina pectoris (principal); E11.9 Type 2 diabetes mellitus without complications; I10 Essential (primary) hypertension; F12.90 Cannabis use, unspecified, uncomplicated; I25.2 Old myocardial infarction; F32.A Depression, unspecified; E78.00 Pure hypercholesterolemia, unspecified; Z99.81 Dependence on supplemental oxygen; Z95.1 Presence of aortocoronary bypass graft; Z95.5 Presence of coronary angioplasty implant and graft; Z87.891 Personal history of nicotine dependence; Z79.84 Long term (current) use of oral hypoglycemic drugs; Z79.899 Other long term (current) drug therapy; Z79.82 Long term (current) use of aspirin
CPT/HCPCS: 93005; 93459; 99152; 99153; J7040; C1769; Q9967

== ENCOUNTER → 2022-08-18 | Outpatient (CLI) | payer MEDICARE, MEDICAID, SELFPAY ==
--- NOTE | 2022-08-18 13:07 | BI_ITS ---
MAMMOGRAPHY - BILATERAL SCREENING 3-D TOMOSYNTHESIS REASON FOR EXAM: Female, 66 years old. SCREENING PERTINENT HISTORY: No significant family history. TECHNIQUE: 2-D mammograms and 3-D Tomosynthesis of the breast (s) were performed. CAD was performed. COMPARISON: 06/13/2021 FINDINGS: The breast composition is heterogeneously dense that can obscure small breast masses. Scattered benign calcifications are seen. No dense spiculated masses or suspicious microcalcifications are identified. No architectural distortion is identified. There is no skin thickening or retraction. There has been no significant change since the prior study. BI/SCRN MAMM (CAD)W/BRITTNI BILAT IMPRESSION: No mammographic signs of malignancy. Routine yearly mammograms recommended. ASSESSMENT CATEGORY: BIRADS Category 1: Negative. A letter regarding these results will be sent to the patient by the facility within 30 days. FOLLOW UP RECOMMENDATION: Yearly follow up mammogram recommended. (A) Approximately 10% of breast cancers are not detected by mammography. A normal mammogram should not delay biopsy of a clinically suspicious abnormality. Electronically Signed: Ag Burr MD at 14:21 EDT ,
--- NOTE | 2022-08-18 13:23 | BD_ITS ---
STUDY: DUAL ENERGY X-RAY ABSORPTIOMETRY / DXA REASON FOR EXAM: Female, 66 years old. [id number]. Patient is postmenopausal. TECHNIQUE: Bone Mineral Density (BMD) measurements of lumbar spine and bilateral hips were obtained. COMPARISON: None. FINDINGS: Lumbar Spine (L1-L4): g/cm2 (0.910) / T-score (-1.2) / Z-score (0.6) Findings are suggestive of osteopenia with a low fracture risk. Left Femur Total: g/cm2 (0.659) / T-score (-2.3) / Z-score (-1.1) Left Femoral Neck: g/cm2 (0.562) / T-score (-2.6) / Z-score (-1.0) Right Femur Total: g/cm2 (0.665) / T-score (-2.3) / Z-score (-1.0) Right Femoral Neck: g/cm2 (0.589) / T-score (-2.3) / Z-score (0.8) BD/Dexa Bone Density Study IMPRESSION: The patient is considered osteoporotic as outlined below according to World [employer]iberto Organization (WHO) criteria with a high fracture risk. Reference Information: The T-score is the number of standard deviations above or below the standard which is normal for young adults at their peak bone mineral density. The World Health Organization (WHO) interprets the T-scores as follows: Above -1 Normal bone density Between -1 and -2.5 Osteopenia Equal to / or below -2.5 Osteoporosis As a practical clinical guideline, osteopenia may be graded as follows: Mild -1 through -1.5 Moderate -1.6 through -2.0 Severe -2.1 through -2.4 The Z-score is the number of standard deviations above or below age-matched controls. A Z-score of less than -1.5 would be considered abnormal. References: 1. NIH Osteoporosis and Related Bone Diseases www osteo.org 2. International Society for Clinical Densitometry www iscd.org 3. National Osteoporosis Foundation www nof.org Electronically Signed: Harry Yu MD at 12:55 EDT ,
== END | disposition home or self-care (01) ==
LOC: OPBD 13:05
PROVIDERS: PCP Family Medicine; Visit Provider Family Medicine
DX: Z00.00 Encounter for general adult medical examination without abnormal findings (principal); Z12.31 Encounter for screening mammogram for malignant neoplasm of breast; Z78.0 Asymptomatic menopausal state
CPT/HCPCS: 77063; 77067; 77080

== ENCOUNTER → 2022-10-05 | Outpatient (CLI) | payer MEDICARE, MEDICAID, SELFPAY ==
--- NOTE | 2022-10-05 12:38 | RAD_ITS ---
EXAM: XR LUMBOSACRAL SPINE COMPLETE WITH FLEXION/EXTENSION, 6 OR MORE VIEWS CLINICAL INDICATION: PAIN OF RIGHT LOWER EXTREMITY TECHNIQUE: Lateral, frontal, oblique and lateral flexion/extension views of the lumbar spine and sacrum. This report was created using [employer] report [employer] technology. COMPARISON: None. FINDINGS: VERTEBRAE: Unremarkable. Preserved vertebral body height. No fracture. No spondylolisthesis. Preservation of the normal lumbar lordosis. No significant facet arthropathy. No instability. DISC SPACES: No acute findings. Disc spaces are maintained. GASTROINTESTINAL TRACT: Unremarkable as visualized. Included bowel gas pattern is non-obstructive. RAD/L/S Spine w Bend Min 6 Vw IMPRESSION: No evidence of lumbar spinal fracture or spondylolisthesis. No instability. Electronically Signed: Silvio Mendieta MD at 0:00 EST ,
[2022-10-05 15:40] LABS: Absolute Lymphocyte Count 2.42 X10^3/uL (0.83-4.51); Absolute Neutrophil Count 3.9 X10^3/uL (2.0-7.7); Basophil# 0.07 X10^3/uL; Eosinophil# 0.15 X10^3/uL; Eosinophils% 2.2 % (0-5); Hematocrit 41.4 % (37-47); Hemoglobin 12.7 g/dL (12.0-15.0); Lymphocyte # 2.42 X10^3/ul (0.83-4.51); Lymphocyte % 34.8 % (19-41); Mean Corp Hgb Conc 30.7 g/dL (32-36); Mean Corpuscular Volume 84.8 fL (81-99); Mean Platelet Vol. 9.4 fl (6.2-12.0); Monocyte# 0.44 X10^3/uL; Monocyte% 6.3 % (0-10); NRBC Flagged by Analyzer 0 % (0-5); Neutrophil # 3.85 X10^3/uL (2.7-7.7); Neutrophil % 55.4 % (47-70); Platelet Count 363 K/mm3 (150-450); Red Blood Count 4.88 M/mm3 (4.2-5.4)
[2022-10-05 15:45] LABS: Erythrocyte Sedimentation Rate 26 mm/hr (0-30)
[2022-10-05 15:50] LABS: BUN 8 mg/dL (7-18); Creatinine, Serum 1.02 mg/dL (0.55-1.02); EST Glomerular Filtration Rate 58 mL/min (>60); Glucose 152 mg/dL (74-106)
[2022-10-05 15:51] LABS: ALB/GLOB Ratio 0.9 RATIO (0.9-2.4); AST(SGOT) 16 U/L (15-37); Alanine Aminotransfer ALT/SGPT 16 U/L (13-56); Albumin, Serum 3.6 g/dL (3.2-5.0); Alkaline Phosphatase 115 U/L (45-117); Anion Gap 9 (5-15); BUN/Creat Ratio 7.8 RATIO (10-20); Calcium,Total 9.3 mg/dL (8.5-10.1); Chloride 98 mmol/L (98-107); Est Glom Filt Rate - Afr Amer 70 mL/min (>60); Globulin 4.1 g/dL (2.2-4.2); Magnesium 2.4 mg/dL (1.6-2.6); Potassium 4.4 mmol/L (3.5-5.1); Protein, Total 7.7 g/dL (6.4-8.2); Sodium Level 136 mmol/L (136-145); Thyroid Stim Hormone (TSH) 1.38 uIU/mL (0.358-3.74)
[2022-10-05 15:55] LABS: Microalbumin,Random Urine 5.8 mg/L (NO RANGE EST.)
== END | disposition home or self-care (01) ==
PROVIDERS: PCP Family Medicine; Visit Provider Family Medicine
DX: R19.7 Diarrhea, unspecified (principal); E11.9 Type 2 diabetes mellitus without complications; R25.2 Cramp and spasm; M79.604 Pain in right leg
CPT/HCPCS: 36415; 72114; 80053; 82043; 83735; 84443; 85025; 85652

== ENCOUNTER → 2022-10-13 | Outpatient (CLI) | payer MEDICARE, MEDICAID, SELFPAY ==
[2022-10-13 14:01] LABS: AST(SGOT) 20 U/L (15-37); Alanine Aminotransfer ALT/SGPT 21 U/L (13-56); Albumin, Serum 3.5 g/dL (3.2-5.0); Alkaline Phosphatase 114 U/L (45-117); Bilirubin, Direct 0.12 mg/dL (0.00-0.30); Cholesterol 191 mg/dL (200); Globulin 4.2 g/dL (2.2-4.2); High Density Lipoprotein 46 mg/dL; Protein, Total 7.7 g/dL (6.4-8.2); Triglycerides 160 mg/dL; Very Low Density Lipoprotein 32 mg/dL (5-40)
== END | disposition home or self-care (01) ==
LOC: LAB 12:20
PROVIDERS: PCP Family Medicine; Referring Provider Nurse Practitioner Gerontology; Visit Provider Nurse Practitioner Gerontology
DX: E78.5 Hyperlipidemia, unspecified (principal)
CPT/HCPCS: 36415; 80061; 80076

== ENCOUNTER → 2022-10-20 | Outpatient (CLI) | payer MEDICARE, MEDICAID, SELFPAY ==
[2022-10-20 12:37] LABS: Absolute Lymphocyte Count 2.43 X10^3/uL (0.83-4.51); Basophil# 0.11 X10^3/uL; Basophil% 1.5 % (0-1); Eosinophil# 0.15 X10^3/uL; Eosinophils% 2.1 % (0-5); Lymphocyte # 2.43 X10^3/ul (0.83-4.51); Mean Corp Hgb Conc 30.8 g/dL (32-36); Mean Corpuscular Hgb 26.3 pg (27.0-32.0); Mean Corpuscular Volume 85.3 fL (81-99); Mean Platelet Vol. 8.9 fl (6.2-12.0); Monocyte# 0.42 X10^3/uL; Monocyte% 5.9 % (0-10); NRBC Flagged by Analyzer 0 % (0-5); Neutrophil # 4.01 X10^3/uL (2.7-7.7); Neutrophil % 56.1 % (47-70); Platelet Count 301 K/mm3 (150-450); RBC Distribution Width CV 15.9 % (11.6-14.6); RBC Distribution Width SD 49.1 fl (35.1-43.9); Red Blood Count 4.57 M/mm3 (4.2-5.4); White Blood Count 7.2 K/mm3 (4.4-11.0)
[2022-10-20 12:41] LABS: Erythrocyte Sedimentation Rate 36 mm/hr (0-30); Macrocytosis 7.2
[2022-10-20 13:15] LABS: ALB/GLOB Ratio 0.8 RATIO (0.9-2.4); AST(SGOT) 18 U/L (15-37); Alanine Aminotransfer ALT/SGPT 20 U/L (13-56); Albumin, Serum 3.6 g/dL (3.2-5.0); Alkaline Phosphatase 120 U/L (45-117); Amylase 63 U/L (25-115); Anion Gap 5 (5-15); BUN 8 mg/dL (7-18); BUN/Creat Ratio 7.3 RATIO (10-20); Calcium,Total 9.5 mg/dL (8.5-10.1); Chloride 100 mmol/L (98-107); Creatinine, Serum 1.09 mg/dL (0.55-1.02); EST Glomerular Filtration Rate 53 mL/min (>60); Est Glom Filt Rate - Afr Amer 65 mL/min (>60); Globulin 4.4 g/dL (2.2-4.2); Glucose 166 mg/dL (74-106); LDH 168 U/L (84-246); Lipase 185 U/L (73-393); Potassium 4.1 mmol/L (3.5-5.1); Sodium Level 135 mmol/L (136-145)
[2022-10-20 13:18] LABS: AST(SGOT) 16 U/L (15-37); Alanine Aminotransfer ALT/SGPT 20 U/L (13-56); Albumin, Serum 3.6 g/dL (3.2-5.0); Alkaline Phosphatase 124 U/L (45-117); Bilirubin, Direct 0.23 mg/dL (0.00-0.30); Cholesterol 196 mg/dL (200); Globulin 4.6 g/dL (2.2-4.2); High Density Lipoprotein 40 mg/dL; Protein, Total 8.2 g/dL (6.4-8.2); Triglycerides 148 mg/dL; Very Low Density Lipoprotein 30 mg/dL (5-40)
[2022-10-21 14:09] LABS: Endomysial Antibody IgA Negative (Negative)
[2022-10-21 14:35] LABS: Immunoglobulin A 206 mg/dL (87-352); t-Transglutaminase IgA <2 U/mL (0-3)
[2022-10-25 00:06] LABS: Alternaria alternata <0.10 kU/L (Class 0); Anti-Centromere B Ab <0.2 AI (0.0-0.9); Anti-Chromatin <0.2 AI (0.0-0.9); Anti-Jo <0.2 AI (0.0-0.9); Anti-Scleroderma-70 AB <0.2 AI (0.0-0.9); Aspergillus fumigatus <0.10 kU/L (Class 0); Bahia Grass <0.10 kU/L (Class 0); Beef <0.10 kU/L (Class 0); Bermuda Grass <0.10 kU/L (Class 0); Bluegrass, Kentucky <0.10 kU/L (Class 0); Cat Hair/Dander, Standard <0.10 kU/L (Class 0); Cedar, Mountain <0.10 kU/L (Class 0); Cladosporium herbarum <0.10 kU/L (Class 0); Cockroach, American <0.10 kU/L (Class 0); Corn <0.10 kU/L (Class 0); D farinae Mite <0.10 kU/L (Class 0); D pteronyssinus <0.10 kU/L (Class 0); Dog Epithelia <0.10 kU/L (Class 0); Egg, Whole <0.10 kU/L (Class 0); Elm, American White <0.10 kU/L (Class 0); Hazelnut Tree <0.10 kU/L (Class 0); Hickory, White <0.10 kU/L (Class 0); Johnson Grass <0.10 kU/L (Class 0); Maple/Box Elder <0.10 kU/L (Class 0); Milk (Cow) <0.10 kU/L (Class 0); Mucor racemosus <0.10 kU/L (Class 0); Mugwort <0.10 kU/L (Class 0); Mulberry, White <0.10 kU/L (Class 0); Nettle <0.10 kU/L (Class 0); Oak, White <0.10 kU/L (Class 0); Peanut <0.10 kU/L (Class 0); Penicillium chrysogen <0.10 kU/L (Class 0); Pigweed, Rough <0.10 kU/L (Class 0); Plantain, English <0.10 kU/L (Class 0); Pork <0.10 kU/L (Class 0); RNP Ab <0.2 AI (0.0-0.9); Ragweed, Short/Common <0.10 kU/L (Class 0); SJOGREN'S Anti-SS-A test < 0.2 AI (0.0-0.9); SJOGREN'S Anti-SS-B test < 0.2 AI (0.0-0.9); Sheep Sorrel(Dock) <0.10 kU/L (Class 0); Smith Ab <0.2 AI (0.0-0.9); Soybean <0.10 kU/L (Class 0); Stemphylium herbarum <0.10 kU/L (Class 0); Sweet Gum <0.10 kU/L (Class 0); Sycamore, American <0.10 kU/L (Class 0); Wheat <0.10 kU/L (Class 0)
[2022-10-25 09:59] LABS: Anti-dsDNA Ab 1 IU/mL (0-9)
[2022-10-25 10:00] LABS: Chocolate <0.10 kU/L (Class 0)
[2022-10-25 12:07] LABS: Albumin 3.4 g/dL (2.9-4.4); Alpha-1-Globulins 0.3 g/dL (0.0-0.4); Alpha-2-Globulins 1.1 g/dL (0.4-1.0); Alternaria tenuis <0.10 kU/L (Class 0); Ash, White <0.10 kU/L (Class 0); Aspergillus fumigatus <0.10 kU/L (Class 0); Bermuda Grass <0.10 kU/L (Class 0); Birch <0.10 kU/L (Class 0); Black Walnut <0.10 kU/L (Class 0); Cat Hair / Dander,Stand <0.10 kU/L (Class 0); Cedar, Mountain <0.10 kU/L (Class 0); Cladosporium herbarum <0.10 kU/L (Class 0); Cockroach, American <0.10 kU/L (Class 0); Cottonwood <0.10 kU/L (Class 0); Cytoplasmic Ab (C-ANCA) <1:20 titer (Neg:<1:20); D farinae Mite <0.10 kU/L (Class 0); D pteronyssinus <0.10 kU/L (Class 0); Dog Epithelia <0.10 kU/L (Class 0); Elm, American White <0.10 kU/L (Class 0); Immunoglobulin A 198 mg/dL (87-352); Immunoglobulin E < 2 IU/mL (6-495); Immunoglobulin G 1021 mg/dL (586-1602); Immunoglobulin M 44 mg/dL (26-217); Maple/Box Elder <0.10 kU/L (Class 0); Mulberry, White <0.10 kU/L (Class 0); Oak, White <0.10 kU/L (Class 0); PROEL- TOTAL PROTEIN 6.8 g/dL (6.0-8.5); Pecan <0.10 kU/L (Class 0); Penicillium Notatum <0.10 kU/L (Class 0); Pigweed, Rough <0.10 kU/L (Class 0); Ragweed, Short/Common <0.10 kU/L (Class 0); Russian Thistle <0.10 kU/L (Class 0); Sheep Sorrel <0.10 kU/L (Class 0); Sycamore, American <0.10 kU/L (Class 0); Timothy Grass <0.10 kU/L (Class 0)
[2022-10-25 14:23] LABS: Mouse Urine <0.10 kU/L (Class 0)
[2022-10-25 14:24] LABS: Perinuclear Ab (P-ANCA) <1:20 titer (Neg:<1:20)
== END | disposition home or self-care (01) ==
PROVIDERS: Nurse Practitioner Gerontology; PCP Family Medicine; Visit Provider Internal Medicine Gastroenterology
DX: K52.9 Noninfective gastroenteritis and colitis, unspecified (principal); E78.5 Hyperlipidemia, unspecified
CPT/HCPCS: 36415; 80053; 80061; 80076; 82150; 82784; 82785; 83516; 83615; 83690; 84165; 85025; 85652; 86003; 86005; 86140; 86225; 86235; 86255; 86256; 86334

== ENCOUNTER → 2022-10-29 | Outpatient (CLI) | payer MEDICARE, MEDICAID, SELFPAY ==
[2022-11-02 12:13] LABS: Calprotectin, Stool 39 ug/g (0-120); Fats, Neutral Normal (.); Fats, Total Increased (.)
[2022-11-03 11:14] LABS: Pancreatic Elastase, Fecal 305 (>200)
== END | disposition home or self-care (01) ==
LOC: LABSPEC 11:19
PROVIDERS: PCP Family Medicine; Referring Provider Internal Medicine Gastroenterology; Visit Provider Internal Medicine Gastroenterology
DX: R19.7 Diarrhea, unspecified (principal); K58.9 Irritable bowel syndrome, unspecified
CPT/HCPCS: 82653; 82705; 83630; 83993; 87177; 87209; 87329; 87493; 87506

== ENCOUNTER 2023-01-11 12:22 | Outpatient (CLI) | payer MEDICARE, MEDICAID, SELFPAY ==
[2023-01-11 16:02] LABS: Erythrocyte Sedimentation Rate 46 mm/hr (0-30)
[2023-01-11 16:03] LABS: Absolute Lymphocyte Count 2.69 X10^3/uL (0.83-4.51); Absolute Neutrophil Count 7.4 X10^3/uL (2.0-7.7); Basophil% 0.9 % (0-1); Eosinophil# 0.18 X10^3/uL; Eosinophils% 1.6 % (0-5); Hematocrit 34.9 % (37-47); Hemoglobin 10.4 g/dL (12.0-15.0); Lymphocyte # 2.69 X10^3/ul (0.83-4.51); Mean Corp Hgb Conc 29.8 g/dL (32-36); Mean Corpuscular Hgb 23.8 pg (27.0-32.0); Mean Corpuscular Volume 79.9 fL (81-99); Mean Platelet Vol. 9.5 fl (6.2-12.0); Monocyte# 0.79 X10^3/uL; NRBC Flagged by Analyzer 0 % (0-5); Neutrophil # 7.41 X10^3/uL (2.7-7.7); Platelet Count 332 K/mm3 (150-450); RBC Distribution Width CV 17.4 % (11.6-14.6); RBC Distribution Width SD 49.7 fl (35.1-43.9); Red Blood Count 4.37 M/mm3 (4.2-5.4); White Blood Count 11.2 K/mm3 (4.4-11.0)
[2023-01-11 16:23] LABS: ALB/GLOB Ratio 0.8 RATIO (0.9-2.4); AST(SGOT) 12 U/L (15-37); Alanine Aminotransfer ALT/SGPT 13 U/L (13-56); Albumin, Serum 3.4 g/dL (3.2-5.0); Alkaline Phosphatase 109 U/L (45-117); Anion Gap 7 (5-15); BUN 14 mg/dL (7-18); BUN/Creat Ratio 13.3 RATIO (10-20); CRP 6.65 mg/L (0.0-3.0); Calcium,Total 9.4 mg/dL (8.5-10.1); Chloride 99 mmol/L (98-107); Creatinine, Serum 1.05 mg/dL (0.55-1.02); EST Glomerular Filtration Rate 56 mL/min (>60); Est Glom Filt Rate - Afr Amer 67 mL/min (>60); Globulin 4.2 g/dL (2.2-4.2); Glucose 168 mg/dL (74-106); Potassium 3.6 mmol/L (3.5-5.1); Prealbumin 18.8 mg/dL (20.0-40.0); Protein, Total 7.6 g/dL (6.4-8.2); Sodium Level 133 mmol/L (136-145); Troponin-I HS 12 pg/mL (3.0-54.0)
== END 2023-01-11 23:59 | disposition home or self-care (01) ==
LOC: MFPLAB 12:24
PROVIDERS: PCP Family Medicine; Visit Provider Family Medicine
DX: E11.69 Type 2 diabetes mellitus with other specified complication (principal); K51.90 Ulcerative colitis, unspecified, without complications; I25.810 Atherosclerosis of coronary artery bypass graft(s) without angina pectoris
CPT/HCPCS: 36415; 80053; 84134; 84484; 85025; 85652; 86140

== ENCOUNTER → 2023-02-02 | Outpatient (CLI) | payer MEDICARE, MEDICAID, SELFPAY ==
--- NOTE | 2023-02-02 09:54 | ECHOD_ITS ---
Reason For Study: MURMUR Procedure This was a 2D Doppler, Color Flow transthoracic echocardiogram. Exam performed in department. Left Ventricle Normal LV size. Mid cavitary false tendon noted. Left ventricular systolic function is normal. The estimated ejection fraction is 60 %. Stage 3 diastolic dysfunction. No regional wall motion abnormalities noted. Right Ventricle Normal RV size. Normal systolic function. Atria Normal left atrium. Normal right atrium. No doppler evidence for ASD. Mitral Valve There is no mitral annular calcification. Normal mitral valve. Mild (1+) mitral valve insufficiency. Tricuspid Valve Normal tricuspid valve. Mild tricuspid valve insufficiency. Right ventricular systolic pressure estimated to be 31 mmHg. Aortic Valve Trisinus/trileaflet aortic valve. Mild focal aortic valve calcification. Pulmonic Valve The pulmonic valve is not well visualized. Great Vessels Normal sized aortic root. Pericardium/Pleural No pericardial effusion. MMode/2D Measurements & Calculations LVIDd: 5.0 cm IVSd: 1.0 cm Ao root diam: 3.2 cm LVIDs: 3.7 cm LVPWd: 0.71 cm FS: 25.8 % LAV(MOD-bp): 58.7 ml LVAd ap4: 27.1 cm2 SV(MOD-sp4): 45.8 ml LAV(MOD-bp) Indexed: 36.0 ml/m2 LVLd ap4: 7.5 cm LAV(MOD-sp2): 58.9 ml EDV(MOD-sp4): 81.9 ml LAV(MOD-sp4): 54.7 ml EDV(sp4-el): 83.5 ml LVAs ap4: 16.0 cm2 LVLs ap4: 6.1 cm ESV(MOD-sp4): 36.1 ml ESV(sp4-el): 35.8 ml EF(MOD-sp4): 55.9 % EF(sp4-el): 57.1 % SV(sp4-el): 47.7 ml LA A4 area: 18.6 cm2 LA dimension(2D): 3.9 cm RA A4 area: 7.8 cm2 Time Measurements MV dec time: 0.08 sec Doppler Measurements & Calculations MV E max timothy: 115.3 cm/sec Lat Peak E' Timothy: 12.6 cm/sec Med Peak E' Timothy: 5.9 cm/sec MV A max timothy: 53.1 cm/sec E/E' lat: 9.2 E/E' med: 19.6 MV E/A: 2.2 MV V2 max: 108.0 cm/sec Ao V2 max: 131.0 cm/sec MV max P.7 mmHg MV dec slope: 1404 cm/sec2 Ao max P.9 mmHg MV V2 mean: 53.4 cm/sec Ao V2 mean: 93.7 cm/sec MV mean P.4 mmHg Ao mean P.0 mmHg MV V2 VTI: 38.4 cm Ao V2 VTI: 35.7 cm AV (velocity ratio): 0.72 LV V1 max: 98.8 cm/sec MR max timothy: 394.8 cm/sec PA V2 max: 116.5 cm/sec LV V1 max P.9 mmHg MR max P.4 mmHg PA V2 mean: 80.4 cm/sec LV V1 mean P.3 mmHg MR mean timothy: 334.1 cm/sec LV V1 mean: 70.2 cm/sec MR mean P.2 mmHg LV V1 VTI: 25.6 cm MR VTI: 153.1 cm TR max timothy: 262.5 cm/sec TR max P.6 mmHg ECHO/Echo Complete Interpretation Summary Left ventricular systolic function is normal. The estimated ejection fraction is 60 %. Mid cavitary false tendon noted. Mild (1+) mitral valve insufficiency. Mild tricuspid valve insufficiency. Mild focal aortic valve calcification. Right ventricular systolic pressure estimated to be 31 mmHg. Stage 3 diastolic dysfunction. Ordering Physician: Gamaliel Young Referring Physician: Esdras Sy MD Performed By: Megan Addison RCS
== END | disposition home or self-care (01) ==
PROVIDERS: PCP Family Medicine; Visit Provider Internal Medicine Cardiovascular Disease
DX: I25.10 Atherosclerotic heart disease of native coronary artery without angina pectoris (principal); K51.90 Ulcerative colitis, unspecified, without complications; R01.1 Cardiac murmur, unspecified; Z95.1 Presence of aortocoronary bypass graft; R00.2 Palpitations; E78.5 Hyperlipidemia, unspecified
CPT/HCPCS: 93306

== ENCOUNTER → 2023-02-05 | Outpatient (CLI) | payer MEDICARE, MEDICAID, SELFPAY ==
--- NOTE | 2023-02-05 12:12 | RAD_ITS ---
STUDY: X-RAY CHEST REASON FOR EXAM: Female, 67 years old. Increased shortness of breath. History of lung cancer. Worsening fatigue. History of prior MRI and CABG procedure. Multiple cardiac and carotid artery blockages. TECHNIQUE: PA and lateral views of the chest. COMPARISON: July 07, 2022. FINDINGS: Stable calcified granuloma in the medial left lung base. The lungs are otherwise clear. There is no demonstrated pleural abnormality. Sternal cerclage wires and vascular clips are present from a prior sternotomy and coronary artery bypass graft procedure (CABG). The heart is normal in size. Normal mediastinum and pili. Normal visualized pulmonary arteries. There is atherosclerotic calcification of the aortic arch with tortuosity. Normal visualized thoracic spine. Normal visualized ribs, clavicles, and shoulders. There is no demonstrated abnormality of the visualized soft tissue structures of the upper abdomen. RAD/Chest PA and Lateral IMPRESSION: No acute cardiopulmonary disease or major interval change. Electronically Signed: Mikel Hernandez DO at 17:11 [facility] ,
[2023-02-05 12:27] LABS: Absolute Lymphocyte Count 2.68 X10^3/uL (0.83-4.51); Absolute Neutrophil Count 7.7 X10^3/uL (2.0-7.7); Basophil# 0.09 X10^3/uL; Basophil% 0.8 % (0-1); Eosinophil# 0.11 X10^3/uL; Hematocrit 32.1 % (37-47); Hemoglobin 9.7 g/dL (12.0-15.0); Lymphocyte # 2.68 X10^3/ul (0.83-4.51); Lymphocyte % 23.7 % (19-41); Mean Corp Hgb Conc 30.2 g/dL (32-36); Mean Corpuscular Hgb 23.3 pg (27.0-32.0); Mean Platelet Vol. 8.9 fl (6.2-12.0); Monocyte# 0.71 X10^3/uL; Monocyte% 6.3 % (0-10); NRBC Flagged by Analyzer 0 % (0-5); Neutrophil # 7.66 X10^3/uL (2.7-7.7); Neutrophil % 67.7 % (47-70); Platelet Count 316 K/mm3 (150-450); RBC Distribution Width CV 17.2 % (11.6-14.6); Red Blood Count 4.17 M/mm3 (4.2-5.4); White Blood Count 11.3 K/mm3 (4.4-11.0)
[2023-02-05 13:15] LABS: Anion Gap 10 (5-15); BUN 9 mg/dL (7-18); BUN/Creat Ratio 8.8 RATIO (10-20); Calcium,Total 9.1 mg/dL (8.5-10.1); Chloride 97 mmol/L (98-107); Creatinine, Serum 1.02 mg/dL (0.55-1.02); EST Glomerular Filtration Rate 58 mL/min (>60); Est Glom Filt Rate - Afr Amer 70 mL/min (>60); Glucose 232 mg/dL (74-106); Potassium 3.8 mmol/L (3.5-5.1); Sodium Level 132 mmol/L (136-145); T4 Total, Thyroxin 7.8 ug/dL (4.8-13.9)
== END | disposition home or self-care (01) ==
PROVIDERS: PCP Family Medicine; Referring Provider Internal Medicine Cardiovascular Disease; Visit Provider Internal Medicine Cardiovascular Disease
DX: R07.9 Chest pain, unspecified (principal); C34.90 Malignant neoplasm of unspecified part of unspecified bronchus or lung; K51.90 Ulcerative colitis, unspecified, without complications; R06.02 Shortness of breath; I25.10 Atherosclerotic heart disease of native coronary artery without angina pectoris; R53.83 Other fatigue; Z95.1 Presence of aortocoronary bypass graft; D64.9 Anemia, unspecified; R00.2 Palpitations
CPT/HCPCS: 36415; 71046; 80048; 84436; 84443; 85025

== ENCOUNTER → 2023-02-19 | Outpatient (CLI) | payer MEDICARE, MEDICAID, SELFPAY ==
--- NOTE | 2023-02-19 16:32 | CT_ITS ---
STUDY: CT CHEST, ABDOMEN T PELVIS WITH CONTRAST REASON FOR EXAM: Female, 67 years old. LUNG CA RADIATION DOSAGE (If Supplied By Facility): CTDIvol = ( 9.69 ) mGy, DLP = ( 602.08 ) mGycm TECHNIQUE: Transaxial imaging was performed following intravenous administration of Oral and amp; IV Gastrografin and amp; 100mL Isovue-370. Individualized dose optimization techniques were used for this CT. COMPARISON: January 30, 2021 FINDINGS: CHEST Lungs are clear. Infiltration. There is minor scarring in the right upper lobe. Previously identified right upper lobe nodule is not visualized. There is a small calcified nodule in the left lower lobe. There is no demonstrated pleural abnormality. Heart size is normal. There is multivessel coronary artery calcification Calcified left hilar and mid mediastinal nodes.. Normal unenhanced pulmonary arteries. Normal aorta arch and descending thoracic aorta. Postop change status post median sternotomy and CABG Dorsal spine demonstrates mild degenerative change ABDOMEN Mild hepatomegaly and fatty infiltrated liver. No mass or bile duct dilatation.. Gallbladder not visualized consistent with prior cholecystectomy . Tiny calcified granulomata within normal size spleen.. Normal pancreas. Normal bilateral adrenal glands. Normal right kidney. Normal left kidney. Normal visualized stomach. Normal small intestine. Normal colon. The appendix is visualized and appears normal. Atherosclerotic changes of the aorta without evidence for aneurysm. Normal inferior vena cava. Normal retroperitoneum. Normal abdominal wall. . PELVIS Poorly distended thick walled bladder which cannot be evaluated Normal visualized small intestine. Normal visualized colon. There is no pelvic fluid. There is no pelvic lymphadenopathy or mass lesion. Normal visualized pelvic arteries. Uterus not visualized status post hysterectomy. Normal abdominal wall. Lumbar spine demonstrates mild spondylosis. CT/CT Chest, Abd, Pel w/Contrast IMPRESSION: Old granulomatous disease in left lower lobe. Scarring in the right upper lobe without evidence for previously noted pulmonary nodule. No hilar or mediastinal adenopathy Mild fatty infiltrated liver. No evidence for hepatic metastasis or retroperitoneal lymphadenopathy. Status post post hysterectomy and probable cholecystectomy. Electronically Signed: Jones Castorena MD at 17:03 EDT Reading Location ID and State: [facility] / [place] , Service support ,
== END | disposition home or self-care (01) ==
LOC: CT 14:25
PROVIDERS: PCP Family Medicine; Visit Provider Family Medicine
DX: C34.90 Malignant neoplasm of unspecified part of unspecified bronchus or lung (principal); K51.90 Ulcerative colitis, unspecified, without complications
CPT/HCPCS: 96365; 96366; 71260; 74177; J7050; Q9967; A4216; J3358

== ENCOUNTER → 2023-02-19 | Outpatient (CLI) | payer MEDICARE, MEDICAID, SELFPAY ==
[2023-02-19 12:21] VITALS: BP 111/42; PULSE 108; RESP 18; TEMP 35.9; O2SAT 100; BMI 21.9
[2023-02-19 14:04] VITALS: BP 108/44; PULSE 59; RESP 16; TEMP 35.9; O2SAT 100
== END | disposition home or self-care (01) ==
LOC: MEDOUTP 11:58
PROVIDERS: PCP Family Medicine; Referring Provider Internal Medicine Gastroenterology; Visit Provider Internal Medicine Gastroenterology
DX: K51.90 Ulcerative colitis, unspecified, without complications (principal)
CPT/HCPCS: 96365; 96366; J7050; A4216; J3358

== ENCOUNTER → 2023-04-21 | Outpatient (CLI) | payer MEDICARE, MEDICAID, SELFPAY ==
[2023-04-21 16:39] LABS: Absolute Lymphocyte Count 3.35 X10^3/uL (0.83-4.51); Absolute Neutrophil Count 4.7 X10^3/uL (2.0-7.7); Basophil# 0.11 X10^3/uL; Basophil% 1.2 % (0-1); Eosinophil# 0.19 X10^3/uL; Eosinophils% 2.1 % (0-5); Hematocrit 32.7 % (37-47); Hemoglobin 9.6 g/dL (12.0-15.0); Lymphocyte # 3.35 X10^3/ul (0.83-4.51); Lymphocyte % 37.1 % (19-41); Mean Corp Hgb Conc 29.4 g/dL (32-36); Mean Corpuscular Hgb 21.5 pg (27.0-32.0); Mean Corpuscular Volume 73.2 fL (81-99); Mean Platelet Vol. 9.2 fl (6.2-12.0); Monocyte# 0.66 X10^3/uL; Monocyte% 7.3 % (0-10); NRBC Flagged by Analyzer 0 % (0-5); Neutrophil # 4.69 X10^3/uL (2.7-7.7); Platelet Count 373 K/mm3 (150-450); RBC Distribution Width CV 19.6 % (11.6-14.6); RBC Distribution Width SD 50.8 fl (35.1-43.9); Red Blood Count 4.47 M/mm3 (4.2-5.4)
[2023-04-21 17:19] LABS: BNP,B-Type NATRIURETIC PEPTIDE 102.9 pg/mL (0-100)
[2023-04-21 17:27] LABS: Anion Gap 6 (5-15); BUN 9 mg/dL (7-18); BUN/Creat Ratio 9.2 RATIO (10-20); Calcium,Total 9.3 mg/dL (8.5-10.1); Chloride 103 mmol/L (98-107); Creatinine, Serum 0.98 mg/dL (0.55-1.02); EST Glomerular Filtration Rate 61 mL/min (>60); Est Glom Filt Rate - Afr Amer 73 mL/min (>60); Glucose 127 mg/dL (74-106); Magnesium 2.2 mg/dL (1.6-2.6); Potassium 4.2 mmol/L (3.5-5.1); Sodium Level 137 mmol/L (136-145); Thyroid Stim Hormone (TSH) 1.03 uIU/mL (0.358-3.74)
== END | disposition home or self-care (01) ==
LOC: LAB 15:52
PROVIDERS: PCP Family Medicine; Referring Provider Nurse Practitioner Gerontology; Visit Provider Nurse Practitioner Gerontology
DX: R06.02 Shortness of breath (principal); R00.2 Palpitations; R53.83 Other fatigue
CPT/HCPCS: 36415; 80048; 83735; 83880; 84443; 85025

== ENCOUNTER → 2023-04-30 | Outpatient (CLI) | payer MEDICARE, MEDICAID, SELFPAY ==
--- NOTE | 2023-04-30 10:44 | CDU_ITS ---
Reason For Study: CAROTID STENOSIS Rt. Velocities/BP Lt. Velocities/BP Prox CCA 79.9/12.8 cm/sec. Prox CCA 99.0/16.7 cm/sec. Mid CCA 74.3/11.0 cm/sec. Mid CCA 114.9/16.7 cm/sec. Dist CCA 94.1/21.4 cm/sec. Dist CCA 103.9/21.6 cm/sec. Prox ICA 231.4/31.0 cm/sec. Prox ICA 129.5/19.9 cm/sec. Mid ICA 119.9/23.3 cm/sec. Mid ICA 109.4/21.7 cm/sec. Dist ICA 91.6/27.8 cm/sec. Dist ICA 105.8/27.2 cm/sec. Rt. ICA/CCA = 231.4/74.3=3.1. Lt. ICA/CCA = 129.5/114.9=1.1. Prox ECA 158.2/12.1 cm/sec. Prox ECA 124.0/7.1 cm/sec. Rt. Vert. 67.0/10.6 cm/sec. Lt. Vert. 50.0/11.2 cm/sec. Right Extracranial There is heterogeneous, irregular atherosclerotic plaque noted in the right common carotid artery. There is heterogeneous, irregular atherosclerotic plaque noted in the right internal carotid artery. There is homogeneous, smooth atherosclerotic plaque noted in the right external carotid artery. Antegrade flow is noted in the right vertebral artery. There is heterogeneous, irregular atherosclerotic plaque noted in the right bulb. Left Extracranial There is heterogeneous, irregular atherosclerotic plaque noted in the left common carotid artery. There is homogeneous, smooth atherosclerotic plaque noted in the left internal carotid artery. There is homogeneous, smooth atherosclerotic plaque noted in the left external carotid artery. Antegrade flow is noted in the left vertebral artery. Procedure Carotid Duplex 98267. This is a Carotid Duplex examination using B-mode, color flow and specral Doppler. Exam performed in department. VL/Carotid Duplex Ultrasound Interpretation Summary Irregular calcific plaque with shadowing in the distal right common carotid art socorro and the right carotid bulb and the proximal right internal carotid artery with greater than 7 0% stenosis of the right internal carotid artery Less than 50% stenosis right external carotid artery Irregular calcific plaque within the distal left common carotid artery with smo oth plaque at the proximal left internal and external carotid arteries 50 to 69% stenosis of the left internal carotid artery Less than 50% stenosis left external carotid artery Patent and antegrade vertebral arteries bilaterally Progression of disease involving the right internal carotid artery from the pre vious examination of May 22, 2022 when there was 50 to 69% stenosis. Ordering Physician: Ye Olson Referring Physician: Esdras Sy Performed By: Allyson Zurita, RDCS, RVT
== END | disposition home or self-care (01) ==
LOC: CVS 10:43
PROVIDERS: PCP Family Medicine; Referring Provider Surgery; Visit Provider Surgery
DX: I65.21 Occlusion and stenosis of right carotid artery (principal)
CPT/HCPCS: 93880

== ENCOUNTER 2023-05-05 07:57 | Day surgery (SDC) | payer MEDICARE, MEDICAID, SELFPAY ==
[2023-05-05] VITALS (8 sets, daily range): BP systolic 88–124; BP diastolic 38–52; PULSE 60–70; RESP 14–18; TEMP 36.4–36.6; O2SAT 95–99; BMI 22.6
--- NOTE | 2023-05-05 | COLBX_PTH ---
PATIENT: ANIRUDH SHELBY LOC: EN U#:[id number] AGE/SX: 67/F ROOM: RE05/05/[address]: Dr. Charlie Corcoran DO : 1955 BED: DIS: 05/05/2023 SPEC #: [id number] RECD: 05/05/23 13:49 STATUS: SCOTT REBrandan #: [id number] BALDEV: 05/05/23 00:[address]: Charlie Corcoran DEPT: SURGICAL PATHOLOGY RECD BY: Zoran Haywood ENTERED: 05/06/23 09:21 SP TYPE: COLON BX OTHR DR: Dr. Esdras Sy MD Tissues: A - Duodenum, NOS B - Ileum, NOS C - COLON BIOPSY Procedures: Surgery Specimen Level IV HEADER OPERATION: [place] [place] biopsy, electrohemostasis PRE-OP DIAGNOSIS: Ulcerative colitis, anemia TISSUE SUBMITTED: A ? Duodenum biopsy, B ? Terminal ileum biopsy, C ? Random colon biopsy MICROSCOPIC DIAGNOSIS A. Duodenum, biopsy: Fragments of duodenal mucosa, no pathologic diagnosis. B. Terminal ileum, biopsy: A fragment of small intestinal mucosa, no pathologic diagnosis. C. Colon, random biopsy: Fragments of colonic mucosa, no pathologic diagnosis. RASHAAD:curtis 05/07/2023 MICROSCOPIC DESCRIPTION Slides are reviewed. GROSS DESCRIPTION A - Received in fixative is one container labeled with the patient's name and designated biopsy duodenum. The specimen consists of two irregular fragments of light welsh soft tissue that in aggregate measure 0.6 x 0.3 x 0.1 cm. The specimen is totally submitted in one cassette. B - Received in fixative is one container labeled with the patient's name and designated biopsy terminal ileum. The specimen consists of one irregular fragment of light welsh soft tissue that measures 0.3 x 0.3 x 0.1 cm. The specimen is totally submitted in one cassette. C - Received in fixative is one container labeled with the patient's name and designated random colon biopsy. The specimen consists of multiple irregular fragments of light welsh soft tissue that in aggregate measure 1.5 x 0.5 x 0.1 cm. The specimen is totally submitted in one cassette. / RASHAAD:curtis 05/06/2023 TC:4 CPT: 10930 x3
[2023-05-05] MEDS: Lactated Ringers 1,000 ML 15 ML IV (08:31)
[2023-05-05 08:51] LABS: Bedside Glucose 145 mg/dL (74-106)
--- NOTE | 2023-05-05 09:32 | HP.PCM_ITS ---
History and Physical Date of Admission: 05/05/23 67 F who presents to the office today for PMH lung cancer; myocardial infarction s/p coronary artery stent placement and CABG. FH colitis, unsure type. EGD and Colonoscopy 08.06.[address] Narvaez for reflux and diarrhea. EGD advanced to pylorus only r/t hypoxia; esophagus and stomach without abnormality seen. Colonoscopy advanced to cecum; Two less than 5mm hyperplastic polyps; Sigmoid colon with focal acute colitis with single gland crypt abscess. *BGI established 10.20.22 with referral from PCP to evaluate diarrhea. Diarrhea with blood and mucous and diffuse lower abdominal/pelvic pain has been present for approximately three years. At onset she was having loose stools with up to nine BM a day; consistency has gotten worse and is now watery stools up to 9 times a day. Reports weight loss of 50-60lbs in the last year. This is the first episode of symptoms. Biochemical workup ?CBC, CMP, lipids, amylase, lipase, Allergens, RAST,? BLAS comp, celiac,?IgGAM without pertinent abnormality. ESR H36, CRP H24.80, IgE <2, pzyez-3-bkivuocm H1.1, p-ANCA H1:160. IBD profile suggestive of UC LFT AST 16/ALT 20/ AP H124. Lipids WNL. Stool studies calprotectin, lactoferrin, C.difficile, elastase, ova/parasite, giardia, EP WNL. ? Total fecal fats increased. Start Mesalamine. Did not wish to have EGD or colonoscopy performed at this time as she reports the most recent being several months ago with Dr. Narvaez. Contact 01.14.23 from PCP with concern as she did not tolerate?mesalamine r/t increased abdominal pain/cramping, emesis.?Contact with Karolina, she did not wish to make any changes or attempt another medication at this time. OV 01.18.23 Reports that her symptoms have not changed since cessation of mesalamine which was only taken for one week and then stopped. BM frequency 5+ times a day with continued abdominal pain/cramping, nausea and emesis.?Pursue Stelara for therapy OV 04.28.23 Continues to have numerous symptoms to include N/V/D, abdominal pain blood in stool, bloating, heartburn. She refuses to take Stelara as she is concerned about side effects. Does not want to take any medications; does not want to pursue colectomy as she does not wish to have colostomy. Stelara start 02.19.23 ROS Const Constitutional: No anorexia, fatigue, fever(s), weight change or sleep problems Eyes Eyes: No change in vision ENT ENT: No abnormal hearing, difficulty swallowing, mouth lesions, tongue swelling or throat swelling Resp Respiratory: No cough or shortness of breath Cardio Cardiology: No chest pain at rest, chest pain with exertion, shortness of breath or dyspnea on exertion Gastro GI: No difficulty swallowing Genitourinary-Female: No difficulty urinating or burning urination Musc Musculoskeletal: No joint pain, joint swelling, muscle weakness or decreased muscle mass Skin Skin: No hair loss in leg, yellowing of the eye, itchy eyes, rash, skin ulcer or skin swelling Neuro Neurology: No abnormal hearing, abnormal movements, confusion, unsteady gait/balance or memory loss Psych Psychiatric: No anxiety, No confusion and No memory loss Endo Endocrine: No fatigue or weight change Aller/Imm Allergy/Immunologic: No itchy eyes, throat swelling or tongue swelling Lavon/Lymp Hematologic/Lymphatic: No easy bleeding, easy bruising or enlarged lymph nodes Exam Const General: cooperative and comfortable Nutritional Appearance: average body habitus and well nourished [facility] Head: normal to inspection Ears: hearing grossly normal bilaterally Nose: external nose normal Face and sinus: normal facial exam Mouth: oral mucosae normal Throat: posterior oropharynx normal Eyes General: appearance normal, both eyes and all related structures Neck Neck: normal visual inspection Chest Chest palpation & inspection: normal inspection of the chest and normal palpation of entire chest wall Resp Effort & Inspection: normal respiratory effort Auscultation: Bilateral: Clear to Auscultation Cardio Palpation: normal PMI Rate: regular rate Rhythm: regular rhythm GI Inspection: normal to inspection Auscultation: normal bowel sounds Percussion: normal to percussion Palpation: no hepatosplenomegaly Skin General: no rashes or lesions noted Neuro General: patient alert Extrem General: normal to inspection Psych Affect: normal affect Quality Reporting Tobacco Screening ([facility]) Smoking Status: Former smoker Assessment and Plan Assessment and Plan (1) Ulcerative colitis: ?Status:?Chronic ?Plan: Patient with biochemical analysis that says it is more likely that she has a also colitis.? She only tried mesalamine based products for 1 week and she tried Stelara for 1 dose.? I have not performed a upper or lower endoscopy on her to stage her and she did not want any other testing.? She comes in today saying she cannot take it anymore and she is want to undergo colonoscopy.? Therefore we will schedule colonoscopy so I can stage her and see if there is any signs or symptoms of active ulcerative colitis. (2) Anemia: ?Status:?Acute ?Plan: I told her that she should undergo testing such as an upper endoscopy since she is undergoing colonoscopy so we can see if she had of acute blood loss anemia and upper GI tract.? She was explained alternatives, risk, benefits include not withstanding bleeding, infection, sepsis, perforation, need for emergent .? She will have an ASA of 3. ? ? ? Orders: Orders Colonoscopy 05/05/23 D64.9 - Anemia, unspecified, K5 1.90 - Ulcerative colitis, unspecified, without complications ? EGD 05/05/23 D64.9 - Anemia, unspecified, K5 1.90 - Ulcerative colitis, unspecified, without complications ? I have examined the patient and the H&P has been reviewed. There are no clinical changes since date of exam.
--- NOTE | 2023-05-05 10:24 | OP.EGD_ITS ---
Patient Name: Karolina Canada Procedure Date: 05/05/2023 9:55 AM Date of : 1955 Age: 67 Procedure: Upper GI endoscopy Indications: Epigastric abdominal pain Providers: Charlie Corcoran DO Medicines: Monitored Anesthesia Care Patient Profile: This is a 67 year old female. Refer to note in patient chart for documentation of history and physical. Patient has symptoms of chronic abdominal cramping and chronic epigastric abdominal pain. Complications: No immediate complications. Procedure: Pre-Anesthesia Assessment: - Prior to the procedure, a History and Physical was performed, and patient medications and allergies were reviewed. The risks and benefits of the procedure and the sedation options and risks were discussed with the patient. All questions were answered and informed consent was obtained. Patient identification and proposed procedure were verified by the physician. Mental Status Examination: alert and oriented. Airway Examination: normal oropharyngeal airway and neck mobility. Respiratory Examination: clear to auscultation. CV Examination: normal. Prophylactic Antibiotics: The patient does not require prophylactic antibiotics. Prior Anticoagulants: The patient has taken no previous anticoagulant or antiplatelet agents. After reviewing the risks and benefits, the patient was deemed in satisfactory condition to undergo the procedure. The anesthesia plan was to use monitored anesthesia care (MAC). Immediately prior to administration of medications, the patient was re-assessed for adequacy to receive sedatives. The heart rate, respiratory rate, oxygen saturations, blood pressure, adequacy of pulmonary ventilation, and response to care were monitored throughout the procedure. The physical status of the patient was re-assessed after the procedure. After obtaining informed consent, the endoscope was passed under direct vision. Throughout the procedure, the patient's blood pressure, pulse, and oxygen saturations were monitored continuously. The was introduced through the mouth, and advanced to the second part of duodenum. The upper GI endoscopy was accomplished without difficulty. The patient tolerated the procedure well. Scope In: 10:03:16 AM Scope Out: 10:05:20 AM Total Procedure Duration Time 0 hours 2 minutes 4 seconds Findings: The examined esophagus was normal. The entire examined stomach was normal. Patchy mildly erythematous mucosa without active bleeding and with no stigmata of bleeding was found in the duodenal bulb. Biopsies were taken with a cold forceps for histology. Verification of patient identification for the specimen was done. Estimated blood loss was minimal. Impression: - Normal esophagus. - Normal stomach. - Erythematous duodenopathy. Biopsied. Recommendation: - Discharge patient to home. - Resume previous diet. - Continue present medications. - Await pathology results. Procedure Code(s): --- Professional --- 90187, Esophagogastroduodenoscopy, flexible, transoral; with biopsy, single or multiple CPT copyright 2017 [employer]. All rights reserved. The codes documented in this report are preliminary and upon superintendent of generation review may be revised to meet current compliance requirements. Charlie Corcoran DO 05/05/2023 10:24:12 AM This report has been signed electronically. Number of Addenda: 0 Note Initiated On: 05/05/2023 9:55 AM
--- NOTE | 2023-05-05 10:25 | OP.CCLET_ITS ---
05/05/2023 David Sy [address] [place] [address] Re : Upper GI endoscopy procedure for Karolina Canada Dear Dr. Sy This procedure was performed on Friday, May 05, 2023. My impressions and recommendations are as follows: Impressions : - Normal esophagus. - Normal stomach. - Erythematous duodenopathy. Biopsied. Recommendations : - Discharge patient to home. - Resume previous diet. - Continue present medications. - Await pathology results. My findings are described in the full procedure note, which is enclosed. If I can be of further assistance, please feel free to contact me at . Sincerely, Charlie Corcoran DO 05/05/2023 10:24:12 AM This report has been signed electronically.
--- NOTE | 2023-05-05 10:29 | OP.CCLET_ITS ---
05/05/2023 David Sy [address] [place] [address] Re : Colonoscopy procedure for Karolina Canada Dear Dr. Sy This procedure was performed on Friday, May 05, 2023. My impressions and recommendations are as follows: Impressions : - Congested mucosa in the recto-sigmoid colon, in the sigmoid colon, at the splenic flexure, at the hepatic flexure and in the ascending colon. Biopsied. - Three non-bleeding colonic angiodysplastic lesions. Treated with a heater probe. - Congested mucosa in the terminal ileum. Biopsied. Recommendations : - Discharge patient to home. - Resume previous diet. - Continue present medications. - Await pathology results. - Repeat colonoscopy for surveillance. My findings are described in the full procedure note, which is enclosed. If I can be of further assistance, please feel free to contact me at . Sincerely, Charlie Corcoran DO 05/05/2023 10:28:30 AM This report has been signed electronically.
--- NOTE | 2023-05-05 10:29 | OP.COLON_ITS ---
Patient Name: Karolina Canada Procedure Date: 05/05/2023 10:05 AM Date of : 1955 Age: 67 Procedure: Colonoscopy Indications: Generalized abdominal pain, Clinically significant diarrhea of unexplained origin Providers: Charlie Corcoran DO Medicines: Monitored Anesthesia Care Patient Profile: This is a 67 year old female. Refer to note in patient chart for documentation of history and physical. Patient has symptoms of chronic abdominal cramping and chronic epigastric abdominal pain. Last Colonoscopy: 3 years ago. Complications: No immediate complications. Procedure: Pre-Anesthesia Assessment: - Prior to the procedure, a History and Physical was performed, and patient medications and allergies were reviewed. The risks and benefits of the procedure and the sedation options and risks were discussed with the patient. All questions were answered and informed consent was obtained. Patient identification and proposed procedure were verified by the physician. Mental Status Examination: alert and oriented. Airway Examination: normal oropharyngeal airway and neck mobility. Respiratory Examination: clear to auscultation. CV Examination: normal. Prophylactic Antibiotics: The patient does not require prophylactic antibiotics. Prior Anticoagulants: The patient has taken no previous anticoagulant or antiplatelet agents. After reviewing the risks and benefits, the patient was deemed in satisfactory condition to undergo the procedure. The anesthesia plan was to use monitored anesthesia care (MAC). Immediately prior to administration of medications, the patient was re-assessed for adequacy to receive sedatives. The heart rate, respiratory rate, oxygen saturations, blood pressure, adequacy of pulmonary ventilation, and response to care were monitored throughout the procedure. The physical status of the patient was re-assessed after the procedure. After I obtained informed consent, the scope was passed under direct vision. Throughout the procedure, the patient's blood pressure, pulse, and oxygen saturations were monitored continuously. The was introduced through the anus and advanced to the terminal ileum. The colonoscopy was performed without difficulty. The patient tolerated the procedure well. The quality of the bowel preparation was adequate. Scope In: 10:06:41 AM Scope Withdrawal Time 0 hours 10 minutes 1 second Scope Out: 10:20:10 AM Total Procedure Duration Time 0 hours 13 minutes 29 seconds Findings: The perianal and digital rectal examinations were normal. An area of mildly congested mucosa was found in the recto-sigmoid colon, in the sigmoid colon, at the splenic flexure, at the hepatic flexure and in the ascending colon. Biopsies were taken with a cold forceps for histology. Verification of patient identification for the specimen was done. Estimated blood loss was minimal. Three medium-sized localized angiodysplastic lesions without bleeding were found in the cecum. Coagulation for hemostasis using heater probe was successful. Estimated blood loss was minimal. A patchy area of the terminal ileum was congested. Biopsies were taken with a cold forceps for histology. Verification of patient identification for the specimen was done. The pathology specimen was placed into Bottle Number 1. Impression: - Congested mucosa in the recto-sigmoid colon, in the sigmoid colon, at the splenic flexure, at the hepatic flexure and in the ascending colon. Biopsied. - Three non-bleeding colonic angiodysplastic lesions. Treated with a heater probe. - Congested mucosa in the terminal ileum. Biopsied. Recommendation: - Discharge patient to home. - Resume previous diet. - Continue present medications. - Await pathology results. - Repeat colonoscopy for surveillance. Procedure Code(s): --- Professional --- 58340, 59, Colonoscopy, flexible; with control of bleeding, any method 21746, Colonoscopy, flexible; with biopsy, single or multiple CPT copyright 2017 [employer]. All rights reserved. The codes documented in this report are preliminary and upon mail deliverer review may be revised to meet current compliance requirements. Charlie Corcoran DO 05/05/2023 10:28:30 AM This report has been signed electronically. Number of Addenda: 0 Note Initiated On: 05/05/2023 10:05 AM
== END 2023-05-05 11:31 | disposition home or self-care (01) ==
LOC: EN 07:58 → AC 07:59
PROVIDERS: PCP Family Medicine; Referring Provider Family Medicine; Visit Provider Internal Medicine Gastroenterology
PROC: 0DJD8ZZ Inspection of Lower Intestinal Tract, Via Natural or Artificial Opening Endoscopic (ICD-10-PCS; CPT 45378; principal; 2023-05-05 09:25)
DX: K55.20 Angiodysplasia of colon without hemorrhage (principal); K51.90 Ulcerative colitis, unspecified, without complications; E11.9 Type 2 diabetes mellitus without complications; D64.9 Anemia, unspecified; Z87.891 Personal history of nicotine dependence; K31.89 Other diseases of stomach and duodenum; Z79.82 Long term (current) use of aspirin; Z79.899 Other long term (current) drug therapy; I10 Essential (primary) hypertension; Z79.84 Long term (current) use of oral hypoglycemic drugs; E78.00 Pure hypercholesterolemia, unspecified; Z87.19 Personal history of other diseases of the digestive system
CPT/HCPCS: 45380; 43239; 45382; 82962; 88305; J7120; J2405

== ENCOUNTER → 2023-05-11 | Outpatient (CLI) | payer MEDICARE, MEDICAID, SELFPAY ==
[2023-05-11 16:10] LABS: BNP,B-Type NATRIURETIC PEPTIDE 93.3 pg/mL (0-100)
[2023-05-12 15:13] LABS: Ferritin 27 ng/mL (8-252); Iron 16 ug/dL (50-170); Iron Binding Capacity,Total 429 ug/dL (250-450)
== END | disposition home or self-care (01) ==
PROVIDERS: PCP Family Medicine; Referring Provider Family Medicine; Visit Provider Family Medicine
DX: D64.9 Anemia, unspecified (principal); R06.02 Shortness of breath
CPT/HCPCS: 36415; 82728; 83540; 83550; 83880

== ENCOUNTER → 2023-07-28 | Outpatient (CLI) | payer MEDICARE, MEDICAID, SELFPAY ==
[2023-07-28 17:45] LABS: Absolute Lymphocyte Count 1.91 X10^3/uL (0.83-4.51); Absolute Neutrophil Count 5.8 X10^3/uL (2.0-7.7); Basophil# 0.09 X10^3/uL; Basophil% 1.1 % (0-1); Eosinophil# 0.09 X10^3/uL; Eosinophils% 1.1 % (0-5); Hematocrit 31.1 % (37-47); Hemoglobin 8.4 g/dL (12.0-15.0); Lymphocyte # 1.91 X10^3/ul (0.83-4.51); Lymphocyte % 22.9 % (19-41); Mean Corpuscular Hgb 19.1 pg (27.0-32.0); Mean Corpuscular Volume 70.7 fL (81-99); Mean Platelet Vol. 9.5 fl (6.2-12.0); Monocyte# 0.45 X10^3/uL; Monocyte% 5.4 % (0-10); NRBC Flagged by Analyzer 0 % (0-5); Neutrophil # 5.77 X10^3/uL (2.7-7.7); Neutrophil % 69.1 % (47-70); Platelet Count 323 K/mm3 (150-450); RBC Distribution Width SD 50.5 fl (35.1-43.9); White Blood Count 8.3 K/mm3 (4.4-11.0)
[2023-07-28 18:38] LABS: ALB/GLOB Ratio 0.9 RATIO (0.9-2.4); AST(SGOT) 21 U/L (15-37); Alanine Aminotransfer ALT/SGPT 17 U/L (13-56); Albumin, Serum 3.5 g/dL (3.2-5.0); Alkaline Phosphatase 94 U/L (45-117); Anion Gap 8 (5-15); BUN 11 mg/dL (7-18); BUN/Creat Ratio 12.3 RATIO (10-20); Calcium,Total 8.7 mg/dL (8.5-10.1); Chloride 101 mmol/L (98-107); EST Glomerular Filtration Rate 67 mL/min (>60); Est Glom Filt Rate - Afr Amer 81 mL/min (>60); Globulin 3.8 g/dL (2.2-4.2); Glucose 149 mg/dL (74-106); Potassium 4.4 mmol/L (3.5-5.1); Protein, Total 7.3 g/dL (6.4-8.2); Sodium Level 134 mmol/L (136-145); Thyroid Stim Hormone (TSH) 0.94 uIU/mL (0.358-3.74)
[2023-08-04 16:09] LABS: Cotinine Screen Blood 171.4 ng/mL (.); Nicotine Blood 9.3 ng/mL (.)
== END | disposition home or self-care (01) ==
LOC: MFPLAB 14:35
PROVIDERS: PCP Family Medicine; Visit Provider Family Medicine
DX: R60.0 Localized edema (principal); E11.65 Type 2 diabetes mellitus with hyperglycemia; F17.200 Nicotine dependence, unspecified, uncomplicated; Z79.899 Other long term (current) drug therapy
CPT/HCPCS: 36415; 80050; 80053; 80323; 84443; 85025; G0480

== ENCOUNTER → 2023-09-10 | Outpatient (CLI) | payer MEDICARE, MEDICAID, SELFPAY ==
--- NOTE | 2023-09-10 11:11 | MRI_ITS ---
STUDY: MRI ABDOMEN AND PELVIS WITH CONTRAST REASON FOR EXAM: Female, 67 years old. K51.90 - Ulcerative colitis, unspecified, without complications, Diahrea, abd pain, patient had to move during exam pre-gluc, patient vomitted post gluc TECHNIQUE: Standardized fat and water weighted pulse sequences were obtained in all 3 orthogonal planes post contrast administration. IV Yes contrast material was administered. COMPARISON: CT of the chest abdomen and pelvis dated February 19, 2023 FINDINGS: Bowel enterography: The bowel loops are opacified and distended with oral contrast. No demonstrated focal luminal stenosis or patulousness. No intraluminal masses are present. No demonstrated small bowel obstruction or ileus. Bowel wall thickening: Absent. Skip lesions: None. Vascularity: Normal. Enhancement: Normal. Fistula: None. Abscess: None. The visualized lung bases are unremarkable. The visualized portions of the heart are within normal limits. Normal liver. Normal gallbladder and extrahepatic biliary system. Normal spleen. Normal pancreas. Normal bilateral adrenal glands. Normal right kidney. Normal left kidney. Normal visualized stomach. Normal colon. The appendix is visualized and appears normal. Normal abdominal aorta. Normal inferior vena cava. Normal retroperitoneum. Normal urinary bladder. Normal abdominal wall. Normal osseous structures. MRI/Enterography Abd/Pel IMPRESSION: 1. Normal unenhanced and MRI of the abdomen and pelvis. 2. MR enterography: The bowel loops are opacified and distended with oral contrast. No demonstrated focal luminal stenosis or patulousness. No intraluminal masses are present. No demonstrated small bowel obstruction or ileus. Electronically Signed: Geovany El MD at 12:34 EDT ,
[2023-09-10 11:46] VITALS: BP 123/50; PULSE 75; RESP 18; TEMP 36.6; O2SAT 99; BMI 22.4
[2023-09-10] MEDS: Glucagon 1 MG/ML Syringe IV (13:18)
[2023-09-10 13:54] VITALS: BP 132/50; PULSE 84; RESP 18; O2SAT 98
== END | disposition home or self-care (01) ==
LOC: MRI 11:05
PROVIDERS: PCP Family Medicine; Referring Provider Internal Medicine Gastroenterology; Visit Provider Internal Medicine Gastroenterology
DX: K51.90 Ulcerative colitis, unspecified, without complications (principal)
CPT/HCPCS: 74183; 96374; A9575; A4216; J1610

== ENCOUNTER → 2023-10-20 | Outpatient (CLI) | payer MEDICARE, MEDICAID, SELFPAY ==
[2023-10-20 13:46] LABS: Differential Indicated SCAN CRITERIA MET
[2023-10-20 13:47] LABS: Absolute Lymphocyte Count 2.85 X10^3/uL (0.83-4.51); Absolute Neutrophil Count 4.7 X10^3/uL (2.0-7.7); Basophil% 1.2 % (0-1); Eosinophil# 0.22 X10^3/uL; Eosinophils% 2.6 % (0-5); Hemoglobin 7.6 g/dL (12.0-15.0); Immature Platelet Fraction 3.2 % (1.0-7.9); Lymphocyte # 2.85 X10^3/ul (0.83-4.51); Lymphocyte % 33.5 % (19-41); Mean Corp Hgb Conc 26.2 g/dL (32-36); Mean Corpuscular Hgb 17.8 pg (27.0-32.0); Mean Corpuscular Volume 67.9 fL (81-99); Mean Platelet Vol. 9.1 fl (6.2-12.0); Monocyte# 0.64 X10^3/uL; Monocyte% 7.5 % (0-10); NRBC Flagged by Analyzer 0 % (0-5); Neutrophil # 4.66 X10^3/uL (2.7-7.7); Neutrophil % 54.7 % (47-70); POSITIVE MORPHOLOGY YES; Platelet Count 330 K/mm3 (150-450); RBC Distribution Width CV 21.5 % (11.6-14.6); RBC Distribution Width SD 51.7 fl (35.1-43.9); RET-HE 16.7 pg (30-35); Red Blood Count 4.27 M/mm3 (4.2-5.4); Reticulocyte Count 1.91 % (0.5-1.5); White Blood Count 8.5 K/mm3 (4.4-11.0)
[2023-10-20 14:18] LABS: Anisocytosis 2+; Schistocytes 1+
[2023-10-20 14:22] LABS: Ferritin 20 ng/mL (8-252); Iron 12 ug/dL (50-170); Iron Binding Capacity,Total 411 ug/dL (250-450); PERCENT IRON SATURATION 2.9 % (15.0-55.0)
[2023-10-20 14:23] LABS: Vitamin B12 473 pg/mL (211-911)
[2023-10-25 14:07] LABS: Albumin 3.5 g/dL (2.9-4.4); Alpha-1-Globulins 0.3 g/dL (0.0-0.4); Deamidated Gliadin IgA 9 units (0-19); Deamidated Gliadin IgG 2 units (0-19); Endomysial Antibody IgA Negative (Negative); Gamma Globulin 0.9 g/dL (0.4-1.8); Immunoglobulin A 179 mg/dL (87-352); Immunoglobulin G 1002 mg/dL (586-1602); Immunoglobulin M 37 mg/dL (26-217); PROEL- TOTAL PROTEIN 6.6 g/dL (6.0-8.5); t-Transglutaminase IgA <2 U/mL (0-3)
== END | disposition home or self-care (01) ==
LOC: LAB 12:58
PROVIDERS: PCP Family Medicine; Referring Provider Internal Medicine Gastroenterology; Visit Provider Internal Medicine Gastroenterology
DX: C34.90 Malignant neoplasm of unspecified part of unspecified bronchus or lung (principal); K51.90 Ulcerative colitis, unspecified, without complications; D64.9 Anemia, unspecified; E78.5 Hyperlipidemia, unspecified
CPT/HCPCS: 36415; 82607; 82728; 82784; 83516; 83540; 83550; 84165; 85025; 85045; 86255; 86334

== ENCOUNTER → 2024-02-03 | Outpatient (CLI) | payer MEDICARE, MEDICAID, SELFPAY ==
[2024-02-03 17:49] LABS: Absolute Lymphocyte Count 2.77 X10^3/uL (0.83-4.51); Absolute Neutrophil Count 7.3 X10^3/uL (2.0-7.7); Basophil# 0.08 X10^3/uL; Basophil% 0.7 % (0-1); Eosinophil# 0.12 X10^3/uL; Eosinophils% 1.1 % (0-5); Hematocrit 29.9 % (37-47); Hemoglobin 8.5 g/dL (12.0-15.0); Lymphocyte # 2.77 X10^3/ul (0.83-4.51); Lymphocyte % 24.4 % (19-41); Mean Corp Hgb Conc 28.4 g/dL (32-36); Mean Corpuscular Hgb 19.3 pg (27.0-32.0); Mean Platelet Vol. 9.3 fl (6.2-12.0); Monocyte# 1.04 X10^3/uL; Monocyte% 9.2 % (0-10); NRBC Flagged by Analyzer 0 % (0-5); Neutrophil # 7.31 X10^3/uL (2.7-7.7); Neutrophil % 64.2 % (47-70); POSITIVE MORPHOLOGY YES; Platelet Count 382 K/mm3 (150-450); RBC Distribution Width CV 22.4 % (11.6-14.6); RBC Distribution Width SD 52.9 fl (35.1-43.9); White Blood Count 11.4 K/mm3 (4.4-11.0)
[2024-02-03 17:57] LABS: Differential Indicated SCAN CRITERIA MET
[2024-02-03 18:11] LABS: ALB/GLOB Ratio 0.9 RATIO (0.9-2.4); AST(SGOT) 15 U/L (15-37); Alanine Aminotransfer ALT/SGPT 14 U/L (13-56); Albumin, Serum 3.5 g/dL (3.2-5.0); Alkaline Phosphatase 107 U/L (45-117); Anion Gap 10 (5-15); BUN 14 mg/dL (7-18); Calcium,Total 8.8 mg/dL (8.5-10.1); Chloride 98 mmol/L (98-107); Creatinine, Serum 0.93 mg/dL (0.55-1.02); EST Glomerular Filtration Rate 64 mL/min (>60); Est Glom Filt Rate - Afr Amer 77 mL/min (>60); Glucose 112 mg/dL (74-106); Potassium 3.4 mmol/L (3.5-5.1); Protein, Total 7.5 g/dL (6.4-8.2); Sodium Level 134 mmol/L (136-145)
[2024-02-03 19:24] LABS: Anisocytosis 2+; Differential Comment SCANNED; Microcytosis 2+
--- OUTSIDE RECORDS SUMMARY | 2024-02-03 20:08 | XMS RPT_ITS | CCD ---
Author Name Unknown Address [email or web address] [place] [address] Organization [facility] Care Team Providers Care Stock Sorter Name Role Phone Charlette Can Unavailable Unavailable TONIACHARLETTE Unavailable Unavailable TONIACHARLETTE BRUNER Unavailable Unavailable DEBBIE ARCHIBALD Unavailable Unavailabl TYREL Rosales Unavailable Unavail able STEWART FELICIANO Unavailable UnavailTyrel Lechuga MD Primary Care Provider Ye Oquendo Unavailable Tyrel Sy MD Primary Care Provider TYREL SY Primary Care Unavailabl e CHARLOTTE LEWIS Referring Unavailable TYREL SY Primary Care Unavailabl DEYANIRA Khoury Referring Unavailable TYREL SY Primary Care Unavailabl e DEDE PHELAN Referring Unavailable TYREL SY Primary Care Unavailabl e CHARLOTTE LEWIS Referring Unavailable TYREL SY Primary Care Unavailabl e CHARLOTTE LEWIS Referring Unavailable TYREL SY Primary Care Unavailabl CHARLOTTE Galeano Referring Unavailable TYREL SY Primary Care Unavailabl DEYANIRA Khoury Referring Unavailable TYREL SY Primary Care Unavailabl DEYANIRA Khoury Attending Unavailable TYREL SY Primary Care Unavailabl e ZHANE DEDE Referring Unavailable TYREL SY Primary Care Unavailabl e DEDE PHELAN Attending Unavailable DEYANIRA REILLY Attending Unavailable CHARLOTTE LEWIS Referring Unavailable TYREL SY Primary Care Unavailabl e LYLY LEWISICA Jl Attending Unavailable TYREL SY Primary Care Unavailabl e TYREL SY Primary Care Unavailabl e DEDE PHELAN Attending Unavailable DEYANIRA REILLY Referring Unavailable TYREL SY Primary Care UnavailDEYANIRA Campuzano Admitting Unavailable DEYANIRA REILLY Attending Unavailable Allergies Allergy Classification Reported Allergen(s) Allergy Type Date of Onset Reaction(s) Facility (14 sources) Acetaminophen / oxyCODONE; Translations: [OXYCODONE-ACETAMI NOPHEN] Drug Allergy 12-09-19 13 GI Upset [facility] (14 sources) Adhesive Tape; Translations: [ADHESIVE TAPE (ROSINS)] Allergy to substance 04-12-20 13 Rash [facility] Work Phone: (14 sources) atorvastatin; Translations: [ATORVASTATIN] Drug Allergy 03-24-20 18 Vomiting [facility] (14 sources) atorvastatin; Translations: [ATORVASTATIN CALCIUM] Drug Allergy 05-11-20 11 Other: See Comments [facility] Work Phone: (14 sources) clopidogrel; Translations: [CLOPIDOGREL] Drug Allergy 01-23-20 21 Vomiting [facility] (14 sources) clopidogrel; Translations: [CLOPIDOGREL BISULFATE] Drug Allergy 02-21-20 16 Diarrhea, Vomiting [facility] (14 sources) Codeine; Translations: [CODEINE] Drug Allergy 04-12-20 13 GI Upset, Unknown [facility] (14 sources) Cortisone; Translations: [CORTISONE] Drug Allergy 01-18-20 06 [facility] (14 sources) FLUoxetine; Translations: [FLUOXETINE HCL] Drug Allergy 05-11-20 11 Other: See Comments [facility] Work Phone: (14 sources) gabapentin; Translations: [GABAPENTIN] Drug Allergy 03-13-20 19 Intolerance [facility] (14 sources) Glucocorticoid preparation; Translations: [CORTICOSTEROIDS (GLUCOCORTICOIDS)] Drug Intolerance 04-12-20 13 GI Upset [facility] Work Phone: (14 sources) hydroCHLOROthiazid e; Translations: [HYDROCHLOROTHIAZI DE] Drug Allergy 03-13-20 19 Vomiting [facility] (14 sources) HYDROcodone; Translations: [HYDROCODONE BITARTRATE] Drug Allergy 03-13-20 19 GI Upset [facility] (14 sources) Lisinopril; Translations: [LISINOPRIL] Drug Allergy 03-13-20 19 Other: See Comments [facility] (14 sources) Losartan; Translations: [LOSARTAN] Drug Allergy 03-13-20 Other: See Comments [facility] (14 sources) Metoprolol; Translations: [METOPROLOL] Drug Allergy 08-25-20 19 Diarrhea [facility] Work Phone: (14 sources) oxyCODONE; Translations: [OXYCODONE] Drug Allergy 03-13-20 19 Intolerance [facility] (14 sources) oxyCODONE; Translations: [OXYCODONE HCL] Drug Allergy 05-11-20 11 Other: See Comments [facility] Work Phone: (14 sources) Penicillins; Translations: [PENICILLINS] Drug Allergy 01-18-20 06 Hives [facility] Work Phone: (14 sources) pioglitazone; Translations: [PIOGLITAZONE HCL] Drug Allergy 05-11-20 11 Other: See Comments [facility] Work Phone: (14 sources) pioglitazone; Translations: [PIOGLITAZONE] Drug Allergy 03-13-20 19 GI Upset [facility] (14 sources) Seasonal allergy; Translations: [SEASONAL ALLERGIES] Allergy to substance 03-20-20 13 Other: See Comments [facility] (14 sources) SITagliptin; Translations: [SITAGLIPTIN] Drug Allergy 05-11-20 11 Other: See Comments [facility] Work Phone: (14 sources) Sulfonamides (Antibiotic); Translations: [SULFA (SULFONAMIDE ANTIBIOTICS)] Drug Allergy 05-11-20 11 Hives, Anaphylaxis [facility] (14 sources) tiZANidine; Translations: [TIZANIDINE] Drug Allergy 03-13-20 19 Hives [facility] (14 sources) traMADol; Translations: [TRAMADOL] Drug Allergy 03-13-20 19 Vomiting [facility] (14 sources) venlafaxine; Translations: [VENLAFAXINE ANALOGUES] Drug Allergy 05-11-20 11 Shortness of Breath [facility] Work Phone: (14 sources) Propoxyphene N-Acetaminophen; Translations: [PROPOXYPHENE N-ACETAMINOPHEN] Propensity to adverse reactions 01-18-20 06 Eula [facility] Medications Current Medications Medication Drug Class(es) Dates Sig (Normalized) Sig (Original) iv contrast (will be provided with radiology test) (1 source) Start: 10-19-2023 End: 10-20-2023 inject 1 dose intravenously once iv contrast (will be provided with radiology test) CTA Head/Neck W No IV access, insert saline lock prior to the sedation, infusion, injection for imaging exam. Discontinue saline lock post exam. If Pt. has a central line or IVAD, may access for administration according to line specific nursing protocol. Once exam is complete flush line and de-access according to line specific nursing protocol in the CT contrast administration guidelines link. 1 Each 0 10/19/2023 10/20/2023 Active Completed/Discontinued Medications Medication Drug Class(es) Dates Sig (Normalized) Sig (Original) acetaminophen 500 mg oral tablet (6 sources) Start: 03-14-2021 take 2 tablets by mouth every six hours acetaminophen (TYLENOL) 500 mg tablet Take 2 tablets by mouth every 6 hours. 50 tablet 0 03/14/2021 Active Problems Active Problems Problem Classification Problem Date Documented Date Episodic/Chronic Cancer of bronchus; lung (12 sources) Malignant neoplasm of right upper lobe of lung; Translations: [Malignant neoplasm of upper lobe, right bronchus or lung] Onset: 03-12-2021 03-14-2021 Chronic Cardiac dysrhythmias (12 sources) Supraventricular tachycardia; Translations: [SVT (supraventricular tachycardia)] Onset: 10-02-2019 10-02-2019 Chronic Chronic obstructive pulmonary disease and bronchiectasis (14 sources) Centriacinar emphysema; Translations: [Centrilobular emphysema] Onset: 11-30-2018 03-14-2021 Chronic Complication of device; implant or graft (2 sources) 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; Translations: [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] Onset: 09-03-2023 09-03-2023 Chronic Coronary atherosclerosis and other heart disease (20 sources) Atherosclerotic heart disease of [place] coronary artery without angina pectoris; Translations: [Disorder of cardiovascular system] Onset: 03-11-2007 03-11-2007 Chronic Deficiency and other anemia (1 source) Iron deficiency anemia secondary to blood loss (chronic); Translations: [Anemia due to chronic blood loss] Onset: 12-03-2023 Chronic Diabetes mellitus with complications (13 sources) Type II diabetes mellitus uncontrolled; Translations: [Type 2 diabetes mellitus with hyperglycemia] Onset: 01-14-2018 09-03-2023 Chronic Diabetes mellitus without complication (13 sources) Type 2 diabetes mellitus without complications; Translations: [Diabetes mellitus] Onset: 01-14-2018 04-28-2019 Chronic Disorders of lipid metabolism (15 sources) Mixed hyperlipidemia; Translations: [Mixed hyperlipidemia] Onset: 03-11-2007 05-22-2019 Chronic Esophageal disorders (8 sources) Gastroesophageal reflux disease; Translations: [Gastro-esophageal reflux disease without esophagitis] Onset: 01-10-2024 01-10-2024 Chronic Essential hypertension (15 sources) Essential hypertension; Translations: [Essential (primary) hypertension] Onset: 05-22-2019 03-14-2021 Chronic Occlusion or stenosis of precerebral arteries (16 sources) Bilateral stenosis of carotid arteries; Translations: [Occlusion and stenosis of bilateral carotid arteries] Onset: 10-19-2023 10-19-2023 Chronic Osteoarthritis (20 sources) Unspecified osteoarthritis, unspecified site; Translations: [Arthritis of right foot] Onset: 08-15-2013 08-15-2013 Chronic Other and ill-defined heart disease (1 source) Other ill-defined heart diseases; Translations: [Diastolic dysfunction] Onset: 10-01-2023 Chronic Other connective tissue disease (1 source) Swelling of limb; Translations: [Other specified soft tissue disorders] 09-03-2023 Episodic Other lower respiratory disease (1 source) Dyspnea on exertion; Translations: [Other forms of dyspnea] 10-11-2023 Episodic Other lower respiratory disease (1 source) Other forms of dyspnea; Translations: [HANCOCK (dyspnea on exertion)] Onset: 10-11-2023 Episodic Other nervous system disorders (12 sources) Chronic pain syndrome; Translations: [Chronic pain syndrome] Onset: 12-09-2012 12-09-2012 Chronic Other non-traumatic joint disorders (12 sources) Arthropathy of multiple joints; Translations: [Arthropathy, unspecified] Onset: 12-09-2012 12-09-2012 Chronic Substance-related disorders (8 sources) Marijuana user; Translations: [Cannabis use, unspecified, uncomplicated] Onset: 01-12-2024 01-12-2024 Episodic Unclassified (1 source) Acute myocardial infarction, unspecified; Translations: [ACUTE MYOCARDIAL INFARCTION UNSPEC] Onset: 01-14-2018 Unclassified (1 source) Established Patient Onset: 12-14-2023 Past or Other Problems Problem Classification Problem Date Documented Da te Episodic/Chronic Abdominal hernia (12 sources) Diaphragmatic hernia; Translations: [Diaphragmatic hernia without obstruction or gangrene] Onset: 01-31-2010 01-31-2010 Episodic Administrative/social admission (12 sources) Discharge status; Translations: [Encounter for administrative examinations, unspecified] Onset: 03-13-2021 03-14-2021 Episodic Cardiac dysrhythmias (12 sources) Palpitations; Translations: [Palpitations] Onset: 10-02-2019 10-02-2019 Episodic Coronary atherosclerosis and other heart disease (20 sources) Presence of coronary angioplasty implant and graft; Translations: [Stented coronary artery] Onset: 07-08-2017 09-03-2023 Episodic Deficiency and other anemia (13 sources) Iron deficiency anemia; Translations: [Iron deficiency anemia, unspecified] Onset: 04-28-2019 04-28-2019 Episodic Deficiency and other anemia (1 source) Iron deficiency anemia, unspecified; Translations: [Iron deficiency anemia, unspecified iron deficiency anemia type] Onset: 04-28-2019 Episodic Esophageal disorders (12 sources) Esophagitis; Translations: [Esophagitis, unspecified] Onset: 01-31-2010 01-31-2010 Episodic Gastritis and duodenitis (12 sources) Acute gastritis; Translations: [Acute gastritis without bleeding] Onset: 01-31-2010 01-31-2010 Episodic Hemorrhoids (1 source) First degree hemorrhoids; Translations: [FIRST DEGREE HEMORRHOIDS] Onset: 01-14-2018 Episodic Nausea and vomiting (12 sources) Nausea and vomiting; Translations: [Nausea with vomiting, unspecified] Onset: 01-31-2010 01-31-2010 Episodic Nonspecific chest pain (20 sources) Chest pain; Translations: [Chest pain, unspecified] Onset: 03-11-2007 03-11-2007 Episodic Other aftercare (3 sources) Encounter for follow-up examination after completed treatment for conditions other than malignant neoplasm; Translations: [Other skilled nursing (current) drug therapy] Onset: 01-14-2018 Episodic Other and unspecified benign neoplasm (3 sources) Benign neoplasm of transverse colon; Translations: [Benign neoplasm of sigmoid colon] Onset: 01-14-2018 Episodic Other and unspecified benign neoplasm (12 sources) Benign neoplasm of colon; Translations: [Benign neoplasm of colon, unspecified] Onset: 06-11-2011 06-11-2011 Episodic Other connective tissue disease (12 sources) Myofascial pain syndrome; Translations: [Myalgia, other site] Onset: 12-09-2012 12-09-2012 Episodic Other connective tissue disease (12 sources) Adhesive capsulitis of left shoulder; Translations: [Adhesive capsulitis of left shoulder] Onset: 12-21-2012 12-21-2012 Episodic Other connective tissue disease (12 sources) Tear of left rotator cuff; Translations: [Unspecified rotator cuff tear or rupture of left shoulder, not specified as traumatic] Onset: 03-20-2013 03-20-2013 Episodic Other connective tissue disease (12 sources) Adhesive capsulitis of shoulder; Translations: [Adhesive capsulitis of unspecified shoulder] Onset: 05-30-2013 05-30-2013 Episodic Other connective tissue disease (12 sources) Impingement syndrome of left shoulder region; Translations: [Impingement syndrome of left shoulder] Onset: 08-26-2020 08-26-2020 Episodic Other connective tissue disease (1 source) Other specified soft tissue disorders; Translations: [Swelling of limb] Onset: 09-03-2023 Episodic Other gastrointestinal disorders (12 sources) Diarrhea; Translations: [Diarrhea, unspecified] Onset: 06-11-2011 06-11-2011 Episodic Other nervous system disorders (12 sources) Acute postoperative pain; Translations: [Other acute postprocedural pain] Onset: 03-13-2021 03-14-2021 Episodic Other non-traumatic joint disorders (12 sources) Pain in left shoulder; Translations: [Pain in joint, shoulder region] Onset: 05-30-2013 08-26-2020 Episodic Other non-traumatic joint disorders (12 sources) Pain in right knee; Translations: [Pain in joint, lower leg] Onset: 01-18-2014 01-18-2014 Episodic Screening or history of mental health and substance abuse (1 source) Personal history of nicotine dependence; Translations: [PERSONAL HISTORY OF NICOTINE DEPEND] Onset: 01-14-2018 Episodic Results Test Name Value Interpretation Reference Range Facil ity Vital Signs Date Time Vital Sign Value Performing Clinician Avelino wells 01-12-2024 09:45-0500 Body height 162.6 cm Pst 1 [facility] 01-12-2024 09:45-0500 Body temperature 96.8 [degF] Pst 1 [facility] 01-12-2024 09:45-0500 Body weight 58.97 kg Pst 1 [facility] 01-12-2024 09:45-0500 Diastolic blood pressure 57 mm[Hg] Pst 1 [facility] 01-12-2024 09:45-0500 Heart rate 62 /min Pst 1 [facility] 01-12-2024 09:45-0500 Respiratory rate 18 /min Pst 1 [facility] 01-12-2024 09:45-0500 SaO2% (BldA) [Mass fraction] 98 % Pst 1 [facility] 01-12-2024 09:45-0500 Systolic blood pressure 107 mm[Hg] Pst 1 [facility] 10-19-2023 14:32-0500 Body height 162.6 cm Deyanira Reilly MD Work Phone: [facility] 10-19-2023 14:32-0500 Body weight 59.88 kg Deyanira Reilly MD Work Phone: [facility] 10-19-2023 14:32-0500 Diastolic blood pressure 62 mm[Hg] Deyanira Reilly MD Work Phone: [facility] 10-19-2023 14:32-0500 Heart rate 72 /min Deyanira Reilly MD Work Phone: [facility] 10-19-2023 14:32-0500 Respiratory rate 18 /min Deyanira Reilly MD Work Phone: [facility] 10-19-2023 14:32-0500 Systolic blood pressure 110 mm[Hg] Deyanira Reilly MD Work Phone: [facility] 09-03-2023 13:20-0400 Body height 162.6 cm Dede Phelan MD Work Phone: [facility] 09-03-2023 13:20-0400 Body weight 59.88 kg Dede Phelan MD Work Phone: [facility] 09-03-2023 13:20-0400 Diastolic blood pressure 41 mm[Hg] Dede Phelan MD Work Phone: [facility] 09-03-2023 13:20-0400 Heart rate 78 /min Dede Phelan MD Work Phone: [facility] 09-03-2023 13:20-0400 SaO2% (BldA) [Mass fraction] 99 % Dede Phelan MD Work Phone: [facility] 09-03-2023 13:20-0400 Systolic blood pressure 83 mm[Hg] Dede Phelan MD Work Phone: [facility] Encounters Encounter Date Encounter Type Care Provider Facility Start: 02-02-2024 ambulatory Leticia Puga RN NURSE O N CALL Procedures Date Procedure Procedure Detail Performing Clinician Start: 01-19-2024 Antibody screen ROSS SY Plan of Treatment Date Care Activity Detail Author Start: 06-05-2031 Urine microalbumin profile DTaP,Tdap,Td Vaccine (2 - Td or Tdap) [facility] Start: 01-12-2025 BP Controlled (<130/80) BP Controlled (<130/80) [facility] Start: 12-03-2024 Hepatitis B surface antibody level LDL Cholesterol [facility] Start: 10-19-2024 BP Controlled (<130/80) BP Controlled (<130/80) [facility] Start: 10-01-2024 BP Controlled (<130/80) BP Controlled (<130/80) [facility] Start: 09-03-2024 BP Controlled (<130/80) BP Controlled (<130/80) [facility] Start: 06-02-2024 Hemoglobin A1c measurement HbA1C [facility] Start: 11-29-2023 Advance Directive Discussion Advance Directive Discussion [facility] Start: 11-29-2023 Depression Assessment Depression Assessment [facility] Start: 10-19-2023 End: 01-18-2024 CREATININE BLD CREATININE BLD Lab Routine Bilateral carotid artery stenosis Expected: 10/19/2023, Expires: 01/18/2024 [facility] Work Phone: Immunizations Immunization Date Immunization Notes Care Provider Fa isabel 03-14-2021 pneumococcal polysaccharide vaccine, 23 trudy Phelan MD Work Phone: [facility] 10-16-2020 influenza virus vacc ine, unspecified formulation Dede Phelan MD Work Phone: [facility] 08-18-2012 influenza virus vacc ine, unspecified formulation Dede Phelan MD Work Phone: [facility] 08-29-2011 influenza virus vacc ine, unspecified formulation Dede Phelan MD Work Phone: [facility] 04-12-2007 pneumococcal polysaccharide vaccine, 23 valbob Phelan MD Work Phone: [facility] 03-14-2007 pneumococcal polysaccharide vaccine, 23 trudy Phelan MD Work Phone: [facility] Payers Date Payer Category Payer Medicare [facility] MEDICARE [facility] DUAL COMPLETE HMO POS SNP [id number] 2022-Present [phone] [address] [place] [address] Medicare [id number] 2022 Unknown [id number] 2020 Medicaid [facility] MEDICAID [employer] ARE [facility] MEDICAID [id number] 2020-Present [phone] [address] [place] [address] Medicaid [id number] 2020 Medicaid [id number] 1958 Medicare [id number] Social History Date Type Detail Facility Start: 09-03-2023 End: 01-12-2024 Tobacco smoking status NHIS Ex-smoker [facility] End: 03-01-2007 History of tobacco use Current smoker [facility] End: 03-01-2007 History of tobacco use Cigarette Smoker [facility] Start: 09-03-2023 End: 10-01-2023 Cigarettes smoked current (pack per day) - Reported 0.5 [facility] Start: 09-03-2023 End: 01-12-2024 Tobacco use and exposure Smokeless tobacco non-user [facility] Start: 09-03-2023 End: 01-19-2024 Alcohol intake Current non-drinker of alcohol (finding) [facility] Start: 09-03-2023 End: 10-01-2023 Tobacco use panel [facility] PHQ2 Score 0 [facility] Start: 09-03-2023 Tobacco Comment 08-22-20 Strong tobacco smell present [facility] Start: 1955 Sex Assigned At Not on file C [facility] Start: 01-12-2024 Tobacco Comment 01/12/24 Strong tobacco smell present [facility] Medical Equipment Procedure Code Equipment Code Equipment Origin al Text Equipment Identifier Dates Anchr Sut 2 Qanc hr+ Gii Ethbnd - [id number] Start: 04-26-2013 Clinical Notes 09-03-2023 to 02-02-2024 Telephone Encounter - Leticia Puga RN - 02/02/2024 6:08 PM ESTTelephone Encounter - Elizabeth Weiss - 01/13/2024 3:53 PM ESTTelephone Encounter - Eliz Atkinson APRN.CNP - 01/13/2024 2:32 PM EST Note Date & Type Note Facility 02-02-2024 Miscellaneous Notes Reason for Disposition [1] MODERATE weakness (i.e., interferes with work, school, normal activities) AND [2] persists > 3 days Answer Assessment - Initial Assessment Questions 1. DESCRIPTION super weak and tired , can't stay awake 2. SEVERITY: can be up but needs help sometimes 3. ONSET: couple days ago 4. CAUSE: something going on with her anemia 5. NEW MEDICINES: nothing new 6. OTHER SYMPTOMS constant diarrhea for 3 years, some confusion that is new but she is able to answer triage questions Protocols used: Weakness (Generalized) and [id number] she will call the office in the am for an appt. documented in this encounter [facility] 01-20-2024 Note HNO ID: [id number] Author: BANEGAS, MARISEL, RN Service: Care Management Author Type: Registered Nurse Type: Care Mgt Progress Note Filed: 01/20/2024 14:03 Note Text: CARE MANAGEMENT DISCHARGE NOTE SERVICE DATE: January 20, 2024 SERVICE TIME: 2:02 PM Admission Date: 01/19/2024 LOS: 1 day Discharge Arrangement Discharge Arrangement: Home with Self Care Services Arranged Provider Name: LUZ Phone: NA Caregiver Assessment Caregiver is ready, willing and able to meet the patient's needs as recommended by the inter-professional team: No Caregiver needed Transportation Arrangements Transportation Arrangements: Car Date of Trip: 01/20/24 Destination: Home Handoff Communication: Handoff to: Primary Care Physician Primary Care Physician Name/Phone: Dr Sy [phone] Additional Information: Patient is discharging home with self care. Patient's niece to provide discharge transportation. SIGNATURE: Marisel Banegas RN PATIENT NAME: Karolina Canada DATE: January 20, 2024 TIME: 2:02 PM CONTACT #: [phone] [facility] 01-20-2024 Note HNO ID: [id number] Author: DEYANIRA REILLY MD Service: General Surgery Author Type: Resident Type: Progress Notes Filed: 01/20/2024 10:27 Note Text: Attestation signed by Deyanira Reilly MD at 01/20/2024 10:27 AM Attending Note I personally saw and examined the patient. I reviewed the resident's note. I agree with the resident's assessment and plan unless otherwise noted. Doing well this AM - regular diet, airam Ruggiero DC home this afternoon Signature: Deyanira Reilly MD Date: 01/20/2024 Time: 10:26 AM Vascular Surgery Progress Note SERVICE DATE: January 20, 2024 Vascular and Thoracic Service Pager: For questions or concerns Mon-Fri 6a-5p please page [phone]. After 5pm and on Weekends and Holidays, please page [phone] if in ICU or [phone] if on RNF. Subjective SUBJECTIVE: No acute events overnight. Doing well this morning. No neck pain or weakness. Diet: DIET HEART HEALTHY Objective OBJECTIVE: Vitals: Temp (24hrs), Av.5 ?C (97.7 ?F), Min:36.3 ?C (97.3 ?F), Max:36.7 ?C (98.1 ?F) BP (!) 131/45 Pulse 63 Temp 36.4 ?C (97.5 ?F) Resp 22 Ht 160 cm (5' 3 ) Wt 59 kg (130 lb) SpO2 99% BMI 23.03 kg/m? O2 Therapy: Nasal Cannula IANDO: Date 01/19/24699 - 01/20/2465801/20/24699 - 01/21/24 0659 Shift 6552-3181 1956-5087 6169-9631 24 Hour Total 6813-6711 8734-7517 6089-5773 24 Hour Total INTAKE IV 2000 2000 Volume (mL) (vancomycin 750 mg in D5W 250 mL Vial-Bag (VANCOCIN)) 250 250 Volume (mL) (lactated ringers iv infusion) 1000 1000 Volume (mL) (NaCl 0.9% iv infusion) 750 750 Shift Total 2000 2000 OUTPUT Urine 700 225 925 Void (ml) 225 225 OR Urine Output 700 700 Shift Total 700 225 925 Weight (kg) 59 59 59 59 59 59 59 59 MEDICATIONS Current Facility-Administered Medications Medication Dose Route Frequency ranolazine ER 1,000 mg tab(s) (RANEXA) 2 tablet ORAL DAILY dextrose 15 gram/32 mL 15 g (TRUEPLUS) 15 g ORAL PRN Or glucagon 1 mg injection 1 mg INTRAMUSCULAR PRN Or dextrose 10% iv bolus 12.5 g INTRAVENOUS PRN atorvastatin 80 mg tab(s) (LIPITOR) 80 mg ORAL AT BEDTIME metoprolol succinate ER 50 mg tab(s) (TOPROL XL) 50 mg ORAL DAILY famotidine 20 mg tab(s) (PEPCID) 20 mg ORAL DAILY ezetimibe 10 mg tab(s) (ZETIA) 10 mg ORAL DAILY AT 6 PM aspirin, enteric coated 81 mg tab(s) 81 mg ORAL DAILY escitalopram oxalate 20 mg tab(s) (LEXAPRO) 20 mg ORAL DAILY insulin lispro injection (rapid acting) (ADMElog) SUBCUTANEOUS q 6 H enoxaparin 40 mg injection (LOVENOX) 40 mg SUBCUTANEOUS DAILY vancomycin iv piggyback 1 g in D5W 200 mL (VANCOCIN) 1 g INTRAVENOUS q 24 HR fentaNYL 50 mcg/mL 50 mcg injection (SUBLIMAZE) 50 mcg INTRAVENOUS q 2 H PRN acetaminophen 975 mg tab(s) (TYLENOL) 975 mg ORAL QID nitroglycerin 100 mg in D5W 250 mL 5-200 mcg/min INTRAVENOUS CONTINUOUS Labs: Recent Labs 01/20/24 0521 NA 137 K 4.1 CHLOR 103 CO2 24 BUN 10 CREAT 0.79 GLUC 121* ANION 10 CA 8.6 WBC 12.48* HB 7.3* HCT 26.2* PLT 257 Physical Exam: GENERAL: No distress, Alert NEURO: AANDOx3, CN II-XII grossly intact HEENT: Normocephalic, atraumatic, Right neck incisions CDI with skin glue LUNGS: Equal chest rise, Unlabored breathing O2 Therapy: Nasal Cannula CARDIAC: Regular rate as above, warm extremities ABDOMEN: Soft EXTREMITIES: WEBB, No deformities, No edema PULSES: palpable radials SKIN: Skin color, texture, turgor normal, No rashes or lesions Assessment AND Plan ASSESSMENT AND PLAN: Assessment Active Hospital Problems Diagnosis Date Noted Carotid stenosis, asymptomatic, bilateral 01/19/2024 Assessment: 68 year old female s/p Right CEA 01/19 Hospital Course/Operations/Procedures: 01/19/2024 Procedure(s): ENDARTERECTOMY CAROTID ADULT-right carotid endarterectomy Plan: Advance to regular diet Pain control Encourage ambulation Hypertension On nitro gtt Attempt to wean LVX Will start ASA and plavix Possible DCV today if able to wean off nitro Discussed with attending: Dr. Reilly SIGNATURE: Andrew Parker DO PATIENT NAME: Karolina Canada DATE: January 20, 2024 TIME: 6:38 AM Pager: [phone] Vascular and Thoracic Service Pager: For questions or concerns Mon-Fri 6a-5p please page [phone]. After 5pm and on Weekends and Holidays, please page [phone] if in ICU or [phone] if on RNF. [facility] 01-19-2024 Note HNO ID: [id number] Author: HELGA WHITT DO Service: General Surgery Author Type: Resident Type: Plan of Care Filed: 01/19/2024 18:00 Note Text: Post-Op Check Subjective: Patient is postop day 0 from a right carotid endarterectomy. Denies much pain. States that she is tolerating liquids without any complication. Objective: 01/19/24 1715 01/19/24 1730 01/19/24 1745 01/19/24 1750 BP: Pulse: 66 67 61 67 Resp: Temp: TempSrc: SpO2: 97% 98% 97% 98% Weight: Height: Physical Exam: General: Postoperative incision located on the right lateral neck. It is clean dry and intact well-approximated with skin glue. Lungs: Regular respiratory effort, good diaphragmatic excursion, on room air Chest: Regular rate and rhythm, BP as above Abdomen: Soft, Appropriately tender to palpation, no rebound or guarding Neuro: Cranial nerves intact, no numbness or weakness in extremities. No facial droop, no slurred speech, no headaches or vision changes Assessment/Plan: - Continue current management - Pain and nausea control - Mobilize, IS - Tolerating Diet: DIET LIQUID Michael Whitt DO PGY-1 General Surgery Resident 01/19/2024 5:57 PM [facility] 01-19-2024 Note HNO ID: [id number] Author: ?, ?, ? Service: Pharmacy Author Type: Hospital Account Manager Type: Plan of Care Filed: 01/19/2024 15:25 Note Text: PHARMACY MEDICATION REVIEW Patient Name: Karolina Canada : 1955 The following medications were updated within the CREATIVE SERVICES COORDINATOR medication list: Medications ADDED to CREATIVE SERVICES COORDINATOR medication list Medications CHANGED on CREATIVE SERVICES COORDINATOR medication list Medications REMOVED from CREATIVE SERVICES COORDINATOR medication list isosorbide mononitrate ER (IMDUR) 30 mg 24 hr tablet Course of therapy completed Additional comments: Verified medication information with e-scripts/dispense report and chart review. Confirmed medications with patient. Patient stated no longer taking Imdur -- removed from med list. Patient stated takes famotidine daily (not BID). Required follow up actions for nursing: None The below information represents the best possible medication history: Yes Medication history completed by: Hospital Account Manager: Akila Zarate (Teaching Pastor) Source of history: Patient: Reliability of source: Appears reliable, clearly identified: Medication name, Medication dose, Medication route, and Medication frequency, Pharmacy records: e-scripts/dispense report, and [facility] records Medication nonadherence identified: No barriers noted Reconciliation completed: No, pharmacist not yet reviewed Patient interested in Bedside Delivery Services or using OP Pharmacy at discharge? Unable to assess Preferred outpatient pharmacy: [id number] [place] [address] - [address] [facility] [phone] [id number] Allergies: Penicillins Hives Actos [Pioglitazone* Other: See Comments Comment:muscle spasms Adhesive Tape (Ashlee* Rash Comment:Skin comes off with tape Use paper tape Atorvastatin Vomiting Clopidogrel Vomiting Codeine GI Upset, Unknown Comment:Can take small amounts Cortisone Comment:loses nerve sensation Darvocet A500 [Prop* Hives Effexor [Venlafaxin* Shortness of Breath Gabapentin Intolerance Hydrochlorothiazide Vomiting Hydrocodone Bitartr* GI Upset Januvia [Sitaglipti* Other: See Comments Comment:muscle spasms Lipitor [Atorvastat* Other: See Comments Comment:abdominal cramping Lisinopril Other: See Comments Losartan Other: See Comments Metoprolol Diarrhea Oxycodone Intolerance Oxycontin [Oxycodon* Other: See Comments Comment:headaches Percocet [Oxycodone* GI Upset Pioglitazone GI Upset Plavix [Clopidogrel* Diarrhea, Vomiting Prozac [Fluoxetine * Other: See Comments Comment:low blood pressure Seasonal Allergies Other: See Comments Comment:Itchy eyes, runny nose, sneezing Steroids [Corticost* GI Upset Comment: deathly ill , joint pain Sulfa (Sulfonamide * Hives, Anaphylaxis Comment:yeast infections Tizanidine Hives Tramadol Vomiting Prior to Admission Medications Prescriptions Last Dose Informant Patient Reported? Taking? aspirin, enteric coated (ECOTRIN LOW STRENGTH) 81 mg EC tablet 01/18/2024 OTHER No Yes Sig: Take 1 tablet by mouth once daily. atorvastatin (LIPITOR) 80 mg tablet 01/18/2024 Yes Yes Sig: Take 1 tablet by mouth every afternoon. escitalopram oxalate (LEXAPRO) 20 mg tablet 01/19/2024 at 0400 Yes Yes Sig: Take 20 mg by mouth every morning. ezetimibe (ZETIA) 10 mg tablet 01/19/2024 at 0400 Yes Yes Sig: Take 1 tablet by mouth every afternoon. famotidine (PEPCID) 20 mg tablet 01/19/2024 at 0400 Yes Yes Sig: Take by mouth once daily. glimepiride (AMARYL) 4 mg tablet 01/18/2024 OTHER Yes Yes Sig: Take 4 mg by mouth daily with breakfast. linagliptin (TRADJENTA) 5 mg tab 01/19/2024 at 0400 OTHER Yes Yes Sig: Take 5 mg by mouth once daily. metoprolol succinate ER (TOPROL XL) 50 mg 24 hr tablet 01/19/2024 at 0400 Yes Yes Sig: Take 1 tablet by mouth every afternoon. nitroglycerin sublingual (NITROQUICK) 0.4 mg SL tablet Unknown No Yes Sig: Dissolve 1 tablet under the tongue as needed. FOR CHEST PAIN. IF NO RELIEF CALL 911 ranolazine SR (RANEXA) 1,000 mg tab ER 12 hr 01/19/2024 at 0400 Yes Yes Sig: Take 1 tablet by mouth once daily. Facility-Administered Medications Last Administration Doses Remaining perflutren lipid microspheres 1.3 mL in NaCl (PF) 0.9% 10 mL injection (DEFINITY) None recorded 1 sodium chloride 0.9 % (flush) 10 mL (BD POSIFLUSH) None recorded 1 Akila Zarate (Teaching Pastor)[id number] 01/19/2024 [facility] 01-19-2024 Note HNO ID: [id number] Author: LALITA MG APRN.TEST SPECIALIST Service: Anesthesiology Author Type: Nurse Criminal Justice Social Worker Type: Anesthesia Procedure Notes Filed: 01/19/2024 10:16 Note Text: ANESTHESIOLOGY PROCEDURE NOTE Airway General Information Procedure Start Time/Medication Administration: 01/19/2024 9:09 AM Patient location during procedure: OR Timeout Performed Pre-procedure: timeout performed Consent Obtained: Yes Patient identity confirmed: patient Staffing Anesthesiologist: Tree Neal MD TEST SPECIALIST: Lalita Mg APRN.TEST SPECIALIST Performed by: LUCAS Indications and Patient Condition Indications for airway management: anesthesia Preoxygenated: yes anesthesia circuit Method: sleep Difficult Mask: No Airway Accessory: oral airway Final Airway Details Final airway type: endotracheal airway Final Endotracheal Airway: ETT Cuffed: yes Successful intubation technique: direct laryngoscopy Endotracheal tube insertion site: oral Blade: Orion Blade size: #3 ETT size (mm): 7.0 Measured from: gums Measurement (cm): 20 Placement verified by: capnometry Cormack-Lehane Classification: grade I - full view of glottis Number of attempts at approach: 1 Airway not difficult SIGNATURE: Lalita Mg APRN.CRNA PATIENT NAME: Karolina Canada DATE: January 19, 2024 TIME: 10:15 AM CSN: [id number] [facility] 01-19-2024 Note HNO ID: [id number] Author: LALITA MG APRN.CRNA Service: Anesthesiology Author Type: Nurse Criminal Justice Social Worker Type: Anesthesia Procedure Notes Filed: 01/19/2024 10:02 Note Text: ANESTHESIOLOGY PROCEDURE NOTE PIV General Information Procedure Start Time/Medication Administration: 01/19/2024 9:15 AM Patient Location: OR Staffing Anesthesiologist: Tree Neal MD TEST SPECIALIST: Lalita Mg APRN.TEST SPECIALIST Performed by: LUCAS Preparation Sterility Preparation: hand hygiene performed prior to procedure, mask used Site Prep: Chloraprep Procedure Details Indication: need for IV access Needle Size/Type: 18 gauge angiocath Orientation: Right Location: Hand Imaging Guidance Used: No SIGNATURE: Lalita Mg APRN.TEST SPECIALIST PATIENT NAME: Karolina Canada DATE: January 19, 2024 TIME: 10:01 AM CSN: [id number] [facility] 01-19-2024 Note HNO ID: [id number] Author: TREE NEAL MD Service: Anesthesiology Author Type: Physician Type: Anesthesia Procedure Notes Filed: 01/19/2024 09:45 Note Text: ANESTHESIOLOGY PROCEDURE NOTE A-Line General Information Procedure Start Time/Medication Administration: 01/19/2024 8:39 AM Procedure End Time: 01/19/2024 8:50 AM Patient location during procedure: OR Timeout Performed Pre-procedure: timeout performed Indications: continuous blood pressure monitoring and blood sampling needed Staffing Anesthesiologist: Tree Neal MD Performed by: anesthesiologist Preparation Sterility Preparation: hand hygiene performed prior to procedure, sterile gloves, drapes, and procedure tray, surgical cap used, mask used, sterile drape used during line insertion, skin prep agent completely dried prior to procedure Site Prep: Chloraprep Procedure Details Catheter Type: arterial line Catheter Size: 20 G Catheter Length: 5.25 in Micropuncture Kit Used: No Guidewire Used: Yes Guidewire Removed Intact: Yes Laterality: left Site: brachial artery (low brachial) Ultrasound Guided: Yes Image in Chart: No Sites: potential access sites evaluated, selected vessel patent, concurrent real time ultrasound visualization of vascular needle entry Vessel: target vessel identified and guidewire advanced into vessel Line Secured: Tegaderm and occlusive biodressing Events Events: patient tolerated procedure well with no complications Comments Art line placed in left radial position with god waveform however when catheter advanced fully waveform gone and unable to draw back - assuming critical stenosis of vessel at end of cath Vessel tracked proximal and lumen only adequate at low brachial level-ultrasound guided placed easily SIGNATURE: Tree Neal MD PATIENT NAME: Karolina Canada DATE: January 19, 2024 TIME: 9:41 AM CSN: [id number] [facility] 01-13-2024 Miscellaneous Notes Cardiac clearance received from Dr. Kimberlee perez/ DONNELL for a right carotid endarterectomy on 01/19/24. Clearance scanned in and in De. Phelan's box to be reviewed. Elizabeth Weiss January 13, 2024 3:54 PM documented in this encounter [facility] 01-13-[address] Reilly, This case was reviewed with Dr. Valle, anesthesiologist. The patient was complaining of chest pain at her PST visit. Dr. Valle is requesting cardiac clearance. I left a message for Steffi at your office- see my progress note for more detail. Thanks, Eliz Atkinson APRN-SONAL Pre-Anesthesia Testing [phone] documented in this encounter [facility] 01-12-2024 Note HNO ID: [id number] Author: ARACELY WOODS APRN.CNP Service: ? Author Type: Nurse Practitioner Type: Progress Notes Filed: 01/12/2024 12:27 Note Text: RED DOT ACC ANI please review with anesthesia to see if patient needs any optimization prior to surgery. Patient reports frequent episodes of chest pain that radiates into her arm. She states only lasts a few minutes due to her just going to lay down and take a nap.Asked if cardiology is aware and she states that they just say see you next time . Recently saw cardiology in November but unaware of surgery that she knows of. She states most recent episode was a couple nights ago. She reports never going to the ER to get this evaluated. METS 2.75 Scheduled to undergo general anesthesia on 01/19 for right carotid endarterectomy with Dr. Reilly. Pre-op examination see note for medical conditions which may affect stephen-operative course that were addressed at today's visit. Coronary artery disease of [place] 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) Surgery scheduled 01/19/24. Aspirin- instructed to get pre op instructions from prescribing physician and surgeon. CABG x 4 in 2006. 4 cardiac stents. Follows with cardiology- last OV 12/03/23. Echo 10/14/23: CONCLUSIONS: - Exam indication: CAD - The left ventricle is mildly dilated. Left ventricular systolic function is normal. EF = 58 ? 5% (2D biplane) Grade I left ventricular diastolic dysfunction. - The right ventricle is normal in size. Right ventricular systolic function is normal. - There are no significant valvular abnormalities. - Exam was compared with the prior echocardiographic exam performed on 03/07/2021 ([facility]). S/P coronary artery stent placement cardiac stents. Essential hypertension Imdur and Metoprolol. Instructed to take morning of surgery. Mixed hyperlipidemia Atorvastatin and Ezetimibe. Instructed to continue as prescribed. Centrilobular emphysema (HCC) No inhalers. Denies hospitalization in the last year due to respiratory issues. 2L home O2 as needed - reports has not needed recently. GERD (gastroesophageal reflux disease) Famotidine. Instructed to take morning of surgery. Diabetes (HCC) Glimepiride- instructed to hold morning of surgery. Linagliptin- instructed to hold 2 days prior to surgery. A1C 7.2 12/03/23 Iron deficiency anemia Iron 19, TIBC 369, Transferrin 5.1 12/03/23 Bilateral carotid artery stenosis Surgery scheduled 01/19/24. CTA neck 11/05/23: IMPRESSION: 1. No large vessel occlusion or high-grade arterial stenosis intracranially. 2. At least 80% stenosis of the proximal right ICA. No significant stenosis of the left ICA. Arterial blood flow was measured to detect acute large vessel occlusion by computer aided detection software: Not Performed. Concordance between software and imaging review: Not Applicable. Marijuana use Current everyday marijuana use. Has medical card. Instructed to refrain from marijuana use morning of surgery. Chest pain Patient reports frequent episodes of chest pain that radiates into her arm. She states only lasts a few minutes due to her just going to lay down and take a nap. Ask if cardiology is aware and she states that they just say see you next time . Recently saw cardiology in November but unaware of surgery that she knows of. [facility] 01-12-2024 History of Presen t illness Narrative RED DOT ACC ANI please review with anesthesia to see if patient needs any optimization prior to surgery. Patient reports frequent episodes of chest pain that radiates into her arm. She states only lasts a few minutes due to her just going to lay down and take a nap.Asked if cardiology is aware and she states that they just say see you next time . Recently saw cardiology in November but unaware of surgery that she knows of. She states most recent episode was a couple nights ago. She reports never going to the ER to get this evaluated. METS 2.75 Scheduled to undergo general anesthesia on 01/19 for right carotid endarterectomy with Dr. Reilly. Pre-op examination see note for medical conditions which may affect stephen-operative course that were addressed at today's visit. Coronary artery disease of [place] 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) Surgery scheduled 01/19/24. Aspirin- instructed to get pre op instructions from prescribing physician and surgeon. CABG x 4 in 2006. 4 cardiac stents. Follows with cardiology- last OV 12/03/23. Echo 10/14/23: CONCLUSIONS: - Exam indication: CAD - The left ventricle is mildly dilated. Left ventricular systolic function is normal. EF = 58 5% (2D biplane) Grade I left ventricular diastolic dysfunction. - The right ventricle is normal in size. Right ventricular systolic function is normal. - There are no significant valvular abnormalities. - Exam was compared with the prior echocardiographic exam performed on 03/07/2021 ([facility]). S/P coronary artery stent placement cardiac stents. Essential hypertension Imdur and Metoprolol. Instructed to take morning of surgery. Mixed hyperlipidemia Atorvastatin and Ezetimibe. Instructed to continue as prescribed. Centrilobular emphysema (HCC) No inhalers. Denies hospitalization in the last year due to respiratory issues. 2L home O2 as needed - reports has not needed recently. GERD (gastroesophageal reflux disease) Famotidine. Instructed to take morning of surgery. Diabetes (HCC) Glimepiride- instructed to hold morning of surgery. Linagliptin- instructed to hold 2 days prior to surgery. A1C 7.2 12/03/23 Iron deficiency anemia Iron 19, TIBC 369, Transferrin 5.1 12/03/23 Bilateral carotid artery stenosis Surgery scheduled 01/19/24. CTA neck 11/05/23: IMPRESSION: 1. No large vessel occlusion or high-grade arterial stenosis intracranially. 2. At least 80% stenosis of the proximal right ICA. No significant stenosis of the left ICA. Arterial blood flow was measured to detect acute large vessel occlusion by computer aided detection software: Not Performed. Concordance between software and imaging review: Not Applicable. Marijuana use Current everyday marijuana use. Has medical card. Instructed to refrain from marijuana use morning of surgery. Chest pain Patient reports frequent episodes of chest pain that radiates into her arm. She states only lasts a few minutes due to her just going to lay down and take a nap. Ask if cardiology is aware and she states that they just say see you next time . Recently saw cardiology in November but unaware of surgery that she knows of. documented in this encounter [facility] 01-12-2024 History and physical note HISTORY AND PHYSICAL EXAMINATION SERVICE DATE: 01/12/2024 SERVICE TIME: 9:20 AM PRIMARY CARE PHYSICIAN: Tyrel Sy MD Assessment Patient has the following medical conditions which may affect stephen-operative course: Pre-op examination see note for medical conditions which may affect stephen-operative course that were addressed at today's visit. Coronary artery disease of [place] 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) Surgery scheduled 01/19/24. Aspirin- instructed to get pre op instructions from prescribing physician and surgeon. CABG x 4 in 2006. 4 cardiac stents. Follows with cardiology- last OV 12/03/23. Echo 10/14/23: CONCLUSIONS: - Exam indication: CAD - The left ventricle is mildly dilated. Left ventricular systolic function is normal. EF = 58 5% (2D biplane) Grade I left ventricular diastolic dysfunction. - The right ventricle is normal in size. Right ventricular systolic function is normal. - There are no significant valvular abnormalities. - Exam was compared with the prior echocardiographic exam performed on 03/07/2021 ([facility] S/P coronary artery stent placement cardiac stents. Essential hypertension Imdur and Metoprolol. Instructed to take morning of surgery. Mixed hyperlipidemia Atorvastatin and Ezetimibe. Instructed to continue as prescribed. Centrilobular emphysema ([facility]) No inhalers. Denies hospitalization in the last year due to respiratory issues. 2L home O2 as needed - reports has not needed recently. GERD (gastroesophageal reflux disease) Famotidine. Instructed to take morning of surgery. Diabetes ([facility]) Glimepiride- instructed to hold morning of surgery. Linagliptin- instructed to hold 2 days prior to surgery. A1C 7.2 12/03/23 Iron deficiency anemia Iron 19, TIBC 369, Transferrin 5.1 12/03/23 Bilateral carotid artery stenosis Surgery scheduled 01/19/24. CTA neck 11/05/23: IMPRESSION: 1. No large vessel occlusion or high-grade arterial stenosis intracranially. 2. At least 80% stenosis of the proximal right ICA. No significant stenosis of the left ICA. Arterial blood flow was measured to detect acute large vessel occlusion by computer aided detection software: Not Performed. Concordance between software and imaging review: Not Applicable. Marijuana use Current everyday marijuana use. Has medical card. Instructed to refrain from marijuana use morning of surgery. Chest pain Patient reports frequent episodes of chest pain that radiates into her arm. She states only lasts a few minutes due to her just going to lay down and take a nap. Ask if cardiology is aware and she states that they just say see you next time . Recently saw cardiology in November but unaware of surgery that she knows of. Rodriguez Activity Status Index: METS: Take care of self; that is eating, dressing, bathing, using the toilet (2.75 METs) DASI Score: 2.75 Patient denies any chest pain or undue shortness of breath with the above physical activity. ARISCAT Score: Age: 51-80 Preoperative SpO2: >=96% Respiratory infection in the last month: No Preoperative anemia: Yes Surgical incision: peripheral Duration of surgery: >3 hrs Emergency procedure: No ARISCAT Score: 37 ANESTHESIA FINDINGS: Intubation History: No history of difficult intubation. No abnormal airway history Significant Anesthesia Considerations: none Airway History: No history of difficult airway No abnormal airway history I - PHYSICAL EVALUATION AIRWAY Patient intubated: No. DENTAL Dentures, upper: complete. Dentures, lower: complete. II - ANESTHESIA PLAN Anesthetic Plan: general Beta Jeff Monitoring Plan Post Procedure Analgesic Plan Prepared for Surgery: CONSULTS: Patient does not require consults for optimization at this time Planned Anesthetic: general The Following Tests/Procedures Have Been Initiated: BMP, CBC, and T&S ordered in PAT per ANI. REASON FOR VISIT: Karolina Canada is a 68 year old female who is scheduled for Procedure(s): ENDARTERECTOMY CAROTID ADULT-right carotid endarterectomy (Right) at the request of Dr. Deyanira Reilly for routine H&P. My final recommendation will be communicated back to the requesting physician by way of shared medical record or letter. Subjective The patient has the following: ACTIVE PROBLEM LIST Chest Pain, Unspecified Unspecified Cardiovascular Disease Mixed Hyperlipidemia Nausea With Vomiting Esophagitis, Unspecified Diaphragmatic Hernia Without Mention of Obstruction Or Gangrene Acute Gastritis Without Mention of Hemorrhage Diarrhea Benign Neoplasm of Colon Arthropathy, Multiple Sites Chronic Pain Disorder Diffuse Myofascial Pain Syndrome Adhesive Capsulitis of Left Shoulder Left Rotator Cuff Tear Acute Pain of Left Shoulder Adhesive Capsulitis of Shoulder Arthritis of Foot, Right Right Knee Pain Arthritis of Right Knee Presence of Stent in Left Circumflex Coronary Artery Presence of Stent in Right Coronary Artery S/P Cabg X 4 Chest Pain Iron Deficiency Anemia Diabetes (Hcc) Coronary Artery Disease of [place] Artery of [place] Heart With Stable Angina Pectoris (Hcc) S/P Coronary Artery Stent Placement Essential Hypertension SVT (supraventricular tachycardia) (HCC), brief 4 beat runs Palpitations Impingement Syndrome of Left Shoulder Robot-assisted, wedge resection of right upper lobe and mediastinal lymph node Discharge Planning Issues Pain, Postoperative, Acute Centrilobular Emphysema (Hcc) Uncontrolled Type 2 Diabetes Mellitus With Hyperglycemia (Hcc) Bilateral Carotid Artery Stenosis Pre-Op Examination Gerd (Gastroesophageal Reflux Disease) Marijuana Use COVID-19 Immunization Status Overdue - Covid-19 Vaccine ( season) Overdue since 07/30/2023 03/27/2021 Imm Admin: COVID-19 original vaccine, full dose, monovalent (MODERNA) 02/28/2021 Imm Admin: COVID-19 original vaccine, full dose, monovalent (MODERNA) CHIEF COMPLAINT: The reason for this visit is to perform a comprehensive review of the patients past medical history, assess their current health status and obtain any additional testing required based on anesthesia guidelines. To assess and identify potential anesthesia problems, particularly those that may suggest potential complications or contraindications to the planned procedure. HPI: Patient is a 68 year old female who presents for presurgical testing. Patient has a history of carotid stenosis. A CTA was performed that showed right ICA stenosis of 80%. Endorses dizziness and presyncopal episodes that she states are getting more frequent. Denies any syncopal episodes. Denies any pain at PAT visit. Denies any recent fever or chills. Patient denies any other problems or concerns at this time. Risks and benefits of the procedure discussed by Surgeon and patient agreed to proceed with planned procedure. REVIEW OF SYSTEMS: General: Positive for: weight loss >10% of BW in last 6 months and malaise. Negative for: fever. Neurological: Negative for: seizures and strokes. Respiratory: Positive for: COPD and home oxygen. Patient is on 2L PRN liter(s) of home O2. Negative for: asthma, pneumonia within 6 weeks, URI < 2 weeks and obstructive sleep apnea. Cardiovascular: See HPI. Positive for: CAD, chest pain, hyperlipidemia, hypertension and open heart surgery Patient's last office visit The following tests and/or procedures were performed: cardiac stents. Negative for: atrial fibrillation, CHF and DVT/PE. GI: Positive for: GERD Negative for: liver disease. : Negative for: frequent urination, hematuria and urgency. 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 Endocrine: Positive for: diabetes mellitus. Patient's diabetes mellitus is controlled by oral agents. Negative for: hyperthyroidism. Hematology: Positive for: anemia and iron deficiency anemia. Oncology: No history of CA metastasis, chemo within 30 days, or radiotherapy within 90 days. No history of oncological symptoms or problems. Psych: Positive for: anxiety and depression. Musculoskeletal: Positive for: back pain and joint pain. Skin: Negative for lesions, rash and itching. PAST MEDICAL HISTORY Diagnosis Date Benign neoplasm of duodenum, jejunum, and ileum CAD (coronary artery disease) bilateral Carotid artery stenosis Cyst on right wrist Diabetes (HCC) Diarrhea HLD (hyperlipidemia) HTN (hypertension) Hx of cardiac cath Knee pain NH (myocardial infarction) (HCC) Nausea Nausea with vomiting OA (osteoarthritis) Occlusion and stenosis of unspecified carotid artery Reflux Rotator cuff (capsule) sprain Rotator cuff tear, left S/P CABG (coronary artery bypass graft) S/P primary angioplasty with coronary stent 2006 RCA Status post primary angioplasty 2015 OM1 Stomach pain Unspecified cardiovascular disease Vomiting PAST SURGICAL HISTORY Procedure Laterality Date ARTHROSCOPY KNEE DIAGNOSTIC W/WO SYNOVIAL BX SPX 2004 Arthroscopy, knee, Rt. x3 2009 CABG, ARTERIAL, FOUR+ 2007 COLONOSCOPY W/BIOPSY SINGLE/MULTIPLE 06/11/2011 ESOPHAGOGASTRODUODENOSCOPY TRANSORAL DIAGNOSTIC 01/31/2010 EGD LAPS ABD PRTM&OMENTUM DX W/WO SPEC BR/WA SPX Laparoscopy x 3 PAST SURGICAL HISTORY OF 1984 gallbladder PAST SURGICAL HISTORY OF 1985 appendectomy PAST SURGICAL HISTORY OF carpal tunnel bilateral PAST SURGICAL HISTORY OF 1982 double hernia surgery PAST SURGICAL HISTORY OF 1992 hysterectomy PAST SURGICAL HISTORY OF 2015 Cardiac Stent, x 4 PAST SURGICAL HISTORY OF Right 2020 robotic pulmonary nodulectomy ROTATOR CUFF REPAIR Left 04/26/2013 left shoulder w/ sub AC decompression STENT PLACEMENT 2006 RCA TONSILLECTOMY PRIMARY/SECONDARY <AGE 13 Tonsillectomy FAMILY HISTORY Problem Relation Age of Onset None Mother Cancer Father bone Diabetes Sister foot cyst Colon Cancer Other Cousin other (Ulcerative Colitis) Maternal Aunt Social History Tobacco Use Smoking status: Former Packs/day: 0.50 Years: 35.00 Additional pack years: 0.00 Total pack years: 17.50 Types: Cigarettes Quit date: 03/01/2007 Years since quittin.8 Smokeless tobacco: Never Tobacco comments: 2/14/24 Strong tobacco smell present Vaping Use Vaping Use: Never used Substance Use Topics Alcohol use: No Drug use: Yes Frequency: 7.0 times per week Types: Marijuana Comment: medical marijuana Prior to Admission medications as of 01/12/24 0931 Medication Sig Last Dose Taking ranolazine SR (RANEXA) 1,000 mg tab ER 12 hr Take 1 tablet by mouth once daily. Yes metoprolol succinate ER (TOPROL XL) 50 mg 24 hr tablet Take 1 tablet by mouth every afternoon. Yes ezetimibe (ZETIA) 10 mg tablet Take 1 tablet by mouth every afternoon. Yes atorvastatin (LIPITOR) 80 mg tablet Take 1 tablet by mouth every afternoon. Yes escitalopram oxalate (LEXAPRO) 20 mg tablet Take 20 mg by mouth every morning. Yes famotidine (PEPCID) 20 mg tablet Take by mouth once daily. Yes isosorbide mononitrate ER (IMDUR) 30 mg 24 hr tablet Take 1 tablet by mouth once daily. Yes glimepiride (AMARYL) 4 mg tablet Take 4 mg by mouth daily with breakfast. Yes linagliptin (TRADJENTA) 5 mg tab Take 5 mg by mouth once daily. Yes aspirin, enteric coated (ECOTRIN LOW STRENGTH) 81 mg EC tablet Take 1 tablet by mouth once daily. Yes nitroglycerin sublingual (NITROQUICK) 0.4 mg SL tablet Dissolve 1 tablet under the tongue as needed. FOR CHEST PAIN. IF NO RELIEF CALL 911 Blood Pressure Monitor kit Check home blood pressure and heart rate daily. Medication Comments documented by Elliot (Teaching Pastor)Akila on 04/27/2019 at 1413. ALLERGIES Allergen Reactions Penicillins Hives Actos [Pioglitazone* Other: See Comments muscle spasms Adhesive Tape (Ashlee* Rash Skin comes off with tape Use paper tape Atorvastatin Vomiting Clopidogrel Vomiting Codeine GI Upset, Unknown Can take small amounts Cortisone loses nerve sensation Darvocet A500 [Prop* Hives Effexor [Venlafaxin* Shortness of Breath Gabapentin Intolerance Hydrochlorothiazide Vomiting Hydrocodone Bitartr* GI Upset Januvia [Sitaglipti* Other: See Comments muscle spasms Lipitor [Atorvastat* Other: See Comments abdominal cramping Lisinopril Other: See Comments Losartan Other: See Comments Metoprolol Diarrhea Oxycodone Intolerance Oxycontin [Oxycodon* Other: See Comments headaches Percocet [Oxycodone* GI Upset Pioglitazone GI Upset Plavix [Clopidogrel* Diarrhea, Vomiting Prozac [Fluoxetine * Other: See Comments low blood pressure Seasonal Allergies Other: See Comments Itchy eyes, runny nose, sneezing Steroids [Corticost* GI Upset deathly ill , joint pain Sulfa (Sulfonamide * Hives, Anaphylaxis yeast infections Tizanidine Hives Tramadol Vomiting Objective PHYSICAL EXAM: General: alert and oriented, healthy appearance and pale. Pertinent negatives noted - not distressed. Skin: normal color, no rash or lesions. HEENT: EOM intact and pupils equal round. Cardiovascular: regular rate and rhythm, normal S1 and S2, no rub, murmurs, or gallop. Respiratory: normal breath sounds, no wheezes or crackles. No chest wall deformity or tenderness. Abdomen: bowel sounds present. Extremities: no deformity, no edema or tenderness, no joint swelling or clubbing. Neurological: normal cognition and motor skills. Gait normal. No weakness or sensory deficit. PAIN ASSESSMENT: Pain Pain Level: 0 VITALS: BP 107/57 Pulse 62 Temp 96.8 Resp 18 Ht 5' 4 (1.63m) Wt 130 lb (59.0kg) SpO2 98% BMI 22.30 kg/(m^2). Diagnostic tests reviewed for today's visit: Lab Value Units Date High Low HB 8.5 g/dL 01/12/2024 15.5 11.5 HCT 30.9 % 01/12/2024 46.0 36.0 WBC 7.35 k/uL 01/12/2024 11.00 3.70 PLT 307 k/uL 01/12/2024 400 150 NA 134 mmol/L 01/12/2024 144 136 K 4.8 mmol/L 01/12/2024 5.1 3.7 GLUC 248 mg/dL 01/12/2024 99 74 BUN 14 mg/dL 01/12/2024 21 7 CREAT 0.82 mg/dL 01/12/2024 0.96 0.58 PTSEC No results within date range. INR No results within date range. APTT No results within date range. ALT 11 U/L 12/03/2023 38 7 AST 25 U/L 12/03/2023 35 13 TBILI 0.6 mg/dL 12/03/2023 1.3 0.2 TSH 1.050 mIU/L 12/03/2023 4.200 0.270 Lab Value Units Date High Low HCGQT No results within date range. UHCG No results within date range. HCG, BODY* No results within date range. Lab Value Units Date High Low ABORHD No results within date range. ABSCREEN No results within date range. Hemoglobin A1C (%) Date Value 12/03/2023 7.2 03/07/2021 9.6 04/27/2019 8.7 01/26/2016 7.3 No results found for this or any previous visit (from the past 8760 hour(s)). Recent Results (from the past 07688 hour(s)) ECHO Collection Time: 10/14/23 10:08 AM Impression CONCLUSIONS: - Exam indication: CAD - The left ventricle is mildly dilated. Left ventricular systolic function is normal. EF = 58 5% (2D biplane) Grade I left ventricular diastolic dysfunction. - The right ventricle is normal in size. Right ventricular systolic function is normal. - There are no significant valvular abnormalities. - Exam was compared with the prior echocardiographic exam performed on 03/07/2021 ([facility]). * * * Final * * * Implantable Devices: 4 cardiac stents, sternal wires Assessment/Plan Coronary artery disease of [place] 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) [I25.118] PLAN Planned Procedure: Procedure(s): ENDARTERECTOMY CAROTID ADULT-right carotid endarterectomy (Right) I spent a total of 50 minutes on the date of the service which included preparing to see the patient, [id number] patient care, completing clinical documentation, obtaining and/or reviewing separately obtained history, performing a medically appropriate examination, and counseling and educating the patient/family/caregiver. Instructions Given to Patient: Instructions located in the after visit summary. Patient given verbal and written preop instructions and voices comprehension and compliance. SIGNATURE: Aracely Woods APRN.CNP PATIENT NAME: Karolina Canada DATE: January 12, 2024 TIME: 9:20 AM PAGER/CONTACT #: documented in this encounter [facility] 01-10-2024 Instructions Aracely Woods APRN.CNP - 01/10/2024 2:23 PM EST PATIENT PREOPERATIVE INSTRUCTIONS Your surgeon has scheduled for your procedure at this surgery center: [facility]: [phone], [address], [place] [address] Please enter through the main entrance and proceed to the blue elevators. The surgery [facility] is located to the left of the blue elevator. Please read below carefully for your personalized instructions. SURGERY DATE : 01/19/24 Your surgeon's office will provide you with your ARRIVAL TIME for surgery. - If you have not received an arrival time by the afternoon before your surgery date, please follow up with your surgeon's office. - If you are scheduled for a Wednesday surgery, please make sure you have your arrival time by Wednesday. Please be aware that emergency situations arise, which may delay or change your surgical time. If this happens, your surgeon's office will notify you as soon as possible and regret any inconvenience. Requirement for Vaccinations : 72-hour period between getting vaccine and date of surgery. Dietary Restrictions: - Nothing to eat or drink after midnight. This is important because if you do, your surgery may have to be cancelled Blood Thinning Medications: - Stop NSAIDS (Ibuprofen, Advil, Aleve, Motrin, Celebrex, Mobic, etc.) 7 days before surgery, as directed by your surgeon. You may take Tylenol (Acetaminophen) or any of your pain medications that do not contain aspirin or NSAIDS as needed. IF YOU TAKE ANY OF THE FOLLOWING BLOOD THINNERS, PLEASE CONTACT YOUR SURGEON AND THE PHYSICIAN WHO PRESCRIBES IT FOR YOU IN ORDER TO GET PERIOPERATIVE INSTRUCTIONS SOON POSSIBLE. BLOOD THINNERS: Aspirin , Coumadin, Plavix, Eliquis, Pradaxa, Xarelto, Lovenox, Brilinta, Effient, Savaysa, Arixtra, etc - Stop Vitamin E, fish oil, multivitamins, Marijuana, CBD oil and other over the counter herbals and dietary supplements 7 days before surgery. -This would not apply to cancer patients who are prescribed Marinol or any other prescription form on marijuana or CBD. Medications: Approved medications to take the morning of surgery with a sip of water: BP, HCTZ, Heart, thyroid, psych, seizure, and pain medications excluding NSAIDS. Use inhalers as prescribed. Please bring inhalers. Diabetes: Please follow up with the provider that manages your diabetes and how to prepare you for surgery. Do not take the morning of surgery: Trajenta, Metformin, Actos/Pioglitazone and Amaryl/Glimepiride. For the following Medications, please HOLD 2 DAYS PRIOR TO SURGERY: Glucotrol/Glipizide, Januvia/Sitagliptin, Glyburide, Prandin/Repaglinide, Starlix/Nateglinide, Symlin/Pramlintide, For the following Medications, please HOLD 3 DAYS PRIOR TO SURGERY: Canagliflozin/Invokana, Dapagliflozin/Farxiga ,Empagliflozin/Jardiance, Invokamet/canagliflozin and metformin, Xigduo XR/ dapagliglozin and metformin, Glyxambi/ empagliflozin and metformin, Syndardy/ empagliflozin and metformin For the following Medications, please HOLD 4 DAYS PRIOR TO SURGERY: Ertugliflozin/Steglatro For the following Medications, please HOLD 7 DAYS PRIOR TO SURGERY: GLP-1 AGONIST: Adlyxin (lixisenatide), Bydureon BCise (exenatide suspension), Byetta (exenatide), Mounjaro (tirzepatide), Ozempic (semaglutide injection), Rybelsus (semaglutide tablets), Tanzeum (albiglutide), Trulicity (dulaglutide), Victoza (liraglutide), Wegovy (semaglutide), Saxenda (liraglutide) Insulin Medication Instructions: Please follow up with the provider that manages your Insulin and how to prepare you for surgery. Pre-Surgery Med Instructions Medication Instructions ranolazine SR (RANEXA) 1,000 mg tab ER 12 hr Take morning of surgery with sip of water, no other fluids metoprolol succinate ER (TOPROL XL) 50 mg 24 hr tablet Take morning of surgery with sip of water, no other fluids ezetimibe (ZETIA) 10 mg tablet Take morning of surgery with sip of water, no other fluids atorvastatin (LIPITOR) 80 mg tablet Take morning of surgery with sip of water, no other fluids escitalopram oxalate (LEXAPRO) 20 mg tablet Take morning of surgery with sip of water, no other fluids famotidine (PEPCID) 20 mg tablet Take morning of surgery with sip of water, no other fluids isosorbide mononitrate ER (IMDUR) 30 mg 24 hr tablet Take morning of surgery with sip of water, no other fluids glimepiride (AMARYL) 4 mg tablet Do not take morning of surgery. linagliptin (TRADJENTA) 5 mg tab Stop 2 days before surgery aspirin, enteric coated (ECOTRIN LOW STRENGTH) 81 mg EC tablet As per surgeon's recommendation Pain Medications: Tylenol for pain as needed and if you are not allergic to. If you start any new medications after today's visit, please contact the surgeon's office. Important Reminders: - If you use CPAP/BIPAP, bring the machine with you to the surgery center. - If you are prescribed inhalers for breathing, continue using them AND bring them to the surgery center. - Candy, mints, gum and tobacco products are NOT permitted the morning of surgery. - Hearing aids, dentures and glasses may be worn the morning of surgery. - NO jewelry, body piercings, makeup, hairpins or contacts are to be worn the day of surgery. - Oral hygiene and a shower or bath is required the evening before or the morning of surgery. Use the Hibiclens body wash supplied to you along with the instruction. - NO lotion, creams, powders or deodorants on the skin the day of surgery - Wear loose, comfortable clothing that will accommodate bandages. - Your length of stay will be determined by your surgeon - You will need to have someone else (Family or friend) drive you home once discharged from the hospital. You are not allowed to drive yourself home after surgery. - YOU MUST HAVE A RESPONSIBLE SBA UNDERWRITER TAKE YOU HOME. A TOILET PRODUCTS MOLDER, CAB OR UBER SBA UNDERWRITER CANNOT BE MADE A RESPONSIBLE SBA UNDERWRITER. - You cannot stay in a hotel alone after outpatient surgery. You will not be permitted to have your surgery, if you do not have someone to take care of you. - It is recommended patients have a 72-hour period between getting their vaccine and date of surgery. - If you develop symptoms such as a fever, cold, or flu, or have other changes to your health within TWO DAYS of scheduled surgery or the morning of surgery, please contact the surgery center above. Personal Belongings: - Leave ALL valuables and money at home or with family members. - You will need a form of ID and insurance card to check in the morning of surgery. - You will have to wear a hospital gown during your stay but if you wish to bring undergarments for after surgery you may. Hibiclens provided The anti-bacterial soap (Hibiclens) should be used TWICE prior to surgery: The night before surgery and the morning of surgery: - If you plan to wash your hair, do so with your regular shampoo. Then rinse hair and body thoroughly to remove any shampoo residue. - Wash your face with water or your regular soap. - Thoroughly rinse your body with water from the neck down - Apply Hibiclens directly on your skin or on a wet washcloth and wash gently. Move away from the shower stream when applying Hibiclens to ensure the CHG binds to the skin. - Pay special attention to the area where your surgery will be performed - Rinse thoroughly - Apply clean bedding and clean clothing after shower Do not use your regular soap after applying and rinsing Hibiclens. Do not apply any lotions, deodorants, powders, or perfumes to the body areas that have been cleaned with Hibiclens. Do not use Hibiclens: - If you are allergic to Chlorhexidine gluconate or any other ingredient in this preparation - In contact with the meninges - In the genital area - On wounds that involve more than the superficial layers of the skin Please review Hibiclens pamphlet prior to use. If you already have an Advance Directive, please fax a copy to [phone] or email to for it to be added to your chart. If you do not have an Advance Directive, you can find the appropriate form and more information at [email or web address]. We recommend that you complete the Advance Directive form found on the website and bring it with you the day of your surgery. It can be witnessed and scanned into your chart that day. Aracely Woods APRN.CNP 01/12/24 documented in this encounter [facility] 12-14-2023 Note HNO ID: [id number] Author: DEYANIRA REILLY MD Service: ? Author Type: Physician Type: Progress Notes Filed: 12/14/2023 13:53 Note Text: [facility] V[facility] Thor[facility] [place] DEPARTMENT OF VASCULAR SURGERY OUTPATIENT VISIT DATE December 14, 2023 OUTPATIENT VISIT TYPE CONSULTATION SERVICE DATE: 12/14/2023 SERVICE TIME: 1:50 PM PRIMARY CARE PHYSICIAN: Tyrel Sy MD REFERRING PROVIDER: No referring provider defined for this encounter. Consult requested for an opinion regarding the evaluation and treatment of the above. My final impression and recommendations will be communicated back to the requesting physician by way of the shared medical record or letter via [place] mail. CHIEF COMPLAINT: Carotid stenosis HISTORY OF PRESENT ILLNESS: Vascular consultation at the request of . A copy of this consultation note will be provided to the requesting physician by way of shared Medical record or letter to requesting physician via US mail. Ms. Canada is a 68 year old female who is seen today for follow up for carotid stenosis. Since her last visit she underwent a CTA and is here to discuss the results. She is currently on ASA, statin medication. Recently had an echo and stress test as well as a visit with her new certified energy manager. CTA demonstrated a R ICA stenosis of 80%. PAST MEDICAL HISTORY Diagnosis Date Benign neoplasm of duodenum, jejunum, and ileum CAD (coronary artery disease) bilateral Carotid artery stenosis Cyst on right wrist Diabetes (HCC) Diarrhea HLD (hyperlipidemia) HTN (hypertension) Hx of cardiac cath Knee pain NH (myocardial infarction) (HCC) Nausea Nausea with vomiting OA (osteoarthritis) Occlusion and stenosis of unspecified carotid artery Reflux Rotator cuff (capsule) sprain Rotator cuff tear, left S/P CABG (coronary artery bypass graft) S/P primary angioplasty with coronary stent 2006 RCA Status post primary angioplasty 2016 OM1 Stomach pain Unspecified cardiovascular disease Vomiting PAST SURGICAL HISTORY Procedure Laterality Date ARTHROSCOPY KNEE DIAGNOSTIC W/WO SYNOVIAL BX SPX 2004 Arthroscopy, knee, Rt. x3 CABG, ARTERIAL, FOUR+ 03/2006 COLONOSCOPY W/BIOPSY SINGLE/MULTIPLE 06/11/2011 ESOPHAGOGASTRODUODENOSCOPY TRANSORAL DIAGNOSTIC 01/31/2010 EGD LAPS ABD PRTMANDOMENTUM DX W/WO SPEC BR/WA SPX Laparoscopy x 3 PAST SURGICAL HISTORY OF gallbladder PAST SURGICAL HISTORY OF appendectomy PAST SURGICAL HISTORY OF carpal tunnel bilateral PAST SURGICAL HISTORY OF double hernia surgery PAST SURGICAL HISTORY OF hysterectomy PAST SURGICAL HISTORY OF 2016 Cardiac Stent, x 4 PAST SURGICAL HISTORY OF Open heart due to [place] ROTATOR CUFF REPAIR 04/26/2013 left shoulder w/ sub AC decompression STENT PLACEMENT 2006 RCA TONSILLECTOMY PRIMARY/SECONDARY Tonsillectomy SOCIAL HISTORY: Social History Tobacco Use Smoking status: Former Packs/day: 0.50 Years: 35.00 Additional pack years: 0.00 Total pack years: 17.50 Types: Cigarettes Quit date: 03/01/2007 Years since quittin.8 Smokeless tobacco: Never Tobacco comments: 08-22-20 Strong tobacco smell present Vaping Use Vaping Use: Never used Substance Use Topics Alcohol use: No Drug use: Yes Frequency: 3.0 times per week Types: Marijuana Comment: medical marijuana FAMILY HISTORY Problem Relation Age of Onset None Mother Cancer Father bone Diabetes Sister foot cyst Colon Cancer Other Cousin other (Ulcerative Colitis) Maternal Aunt MEDICATIONS: famotidine (PEPCID) 20 mg tabletDisp: Rfl: nitroglycerin sublingual (NITROQUICK) 0.4 mg SL tabletDissolve 1 tablet under the tongue as needed. FOR CHEST PAIN. IF NO RELIEF CALL 911Disp: 25 tabletRfl: 3 acetaminophen (TYLENOL) 500 mg tabletTake 2 tablets by mouth every 6 hours.Disp: 50 tabletRfl: 0 (Patient taking differently: Take 1,000 mg by mouth every 8 hours as needed for pain.) isosorbide mononitrate ER (IMDUR) 30 mg 24 hr tabletTake 1 tablet by mouth once daily.Disp: 30 tabletRfl: 11 Blood Pressure Monitor [facility] blood pressure and heart rate daily.Disp: 1 KitRfl: 0 glimepiride (AMARYL) 4 mg tabletTake 4 mg by mouth daily with breakfast.Disp: Rfl: atorvastatin (LIPITOR) 40 mg tabletTAKE 1 TABLET BY MOUTH ONCE DAILYDisp: 30 tabletRfl: 11 linagliptin (TRADJENTA) 5 mg tabTake 5 mg by mouth once daily. Disp: Rfl: escitalopram oxalate (LEXAPRO) 10 mg tabletTake 10 mg by mouth once daily.Disp: Rfl: aspirin, enteric coated (ECOTRIN LOW STRENGTH) 81 mg EC tabletTake 1 tablet by mouth once daily.Disp: Rfl: ALLERGIES: ALLERGIES Allergen Reactions Penicillins Hives Actos [Pioglitazone* Other: See Comments muscle spasms Adhesive Tape (Ashlee* Rash Skin comes off with tape Use paper tape Atorvastatin Vomiting Clopidogrel Vomiting Codeine GI Upset, Unknown Can take small amounts Cortisone loses nerve sensation Bony (more content not included)... [facility] 12-03-2023 Note HNO ID: [id number] Author: DEDE PHELAN MD Service: ? Author Type: Physician Type: Progress Notes Filed: 12/03/2023 12:29 Note Text: Heart, Vascular [facility] Thor[facility] [place] [facility] Carrizales Department of Cardiovascular Medicine SECTION OF INTERVENTIONAL CARDIOLOGY OUTPATIENT VISIT DATE December 03, 2023 OUTPATIENT VISIT TYPE ESTABLISHED PRIMARY CARE PHYSICIAN: Tyrel Sy ([facility]) [address] [place] [id number] REFERRING PHYSICIAN: SELF CHIEF COMPLAINT: Patient presents with: Cardiology Follow Up - Generic: Presence of stent in left circumflex coronary artery HISTORY OF PRESENT ILLNESS: Ms. Canada is a 68 year old female who presents today for follow-up visit. She has PMH of the DM, CAD (S/P CABG, PCI) HTN, HLP, and PAD (per patient has bilateral carotid artery stenosis). She mentioned that about 5 months ago has [facility] out side hospital and they did not do anything. I asked her to bring the CD so I can evaluate it. She is concern for the carotid arteries, CTA showed 80% blockage and she has appointment with vascular team in two weeks. She is depressed and while we were talking she breaking to tears. She complains of fatigue and anemia. She denies palpitations and syncope. PAST CARDIAC HISTORY: See HPI PAST MEDICAL HISTORY Diagnosis Date Benign neoplasm of duodenum, jejunum, and ileum CAD (coronary artery disease) bilateral Carotid artery stenosis Cyst on right wrist Diabetes (HCC) Diarrhea HLD (hyperlipidemia) HTN (hypertension) Hx of cardiac cath Knee pain NH (myocardial infarction) (HCC) Nausea Nausea with vomiting OA (osteoarthritis) Occlusion and stenosis of unspecified carotid artery Reflux Rotator cuff (capsule) sprain Rotator cuff tear, left S/P CABG (coronary artery bypass graft) S/P primary angioplasty with coronary stent 2006 RCA Status post primary angioplasty 2016 OM1 Stomach pain Unspecified cardiovascular disease Vomiting PAST SURGICAL HISTORY Procedure Laterality Date ARTHROSCOPY KNEE DIAGNOSTIC W/WO SYNOVIAL BX SPX 2004 Arthroscopy, knee, Rt. x3 CABG, ARTERIAL, FOUR+ 03/2006 COLONOSCOPY W/BIOPSY SINGLE/MULTIPLE 06/11/2011 ESOPHAGOGASTRODUODENOSCOPY TRANSORAL DIAGNOSTIC 01/31/2010 EGD LAPS ABD PRTMANDOMENTUM DX W/WO SPEC BR/WA SPX Laparoscopy x 3 PAST SURGICAL HISTORY OF gallbladder PAST SURGICAL HISTORY OF appendectomy PAST SURGICAL HISTORY OF carpal tunnel bilateral PAST SURGICAL HISTORY OF double hernia surgery PAST SURGICAL HISTORY OF hysterectomy PAST SURGICAL HISTORY OF 2016 Cardiac Stent, x 4 PAST SURGICAL HISTORY OF Open heart due to NH ROTATOR CUFF REPAIR 04/26/2013 left shoulder w/ sub AC decompression STENT PLACEMENT 2006 RCA TONSILLECTOMY PRIMARY/SECONDARY Tonsillectomy SOCIAL HISTORY Social History Tobacco Use Smoking status: Former Packs/day: 0.50 Years: 35.00 Additional pack years: 0.00 Total pack years: 17.50 Types: Cigarettes Quit date: 03/01/2007 Years since quittin.7 Smokeless tobacco: Never Tobacco comments: 08-22-20 Strong tobacco smell present Vaping Use Vaping Use: Never used Substance Use Topics Alcohol use: No Drug use: Yes Frequency: 3.0 times per week Types: Marijuana Comment: medical marijuana FAMILY HISTORY Problem Relation Age of Onset None Mother Cancer Father bone Diabetes Sister foot cyst Colon Cancer Other Cousin other (Ulcerative Colitis) Maternal Aunt ALLERGIES: ALLERGIES Allergen Reactions Penicillins Hives Actos [Pioglitazone* Other: See Comments muscle spasms Adhesive Tape (Ashlee* Rash Skin comes off with tape Use paper tape Atorvastatin Vomiting Clopidogrel Vomiting Codeine GI Upset, Unknown Can take small amounts Cortisone loses nerve sensation Darvocet A500 [Prop* Hives Effexor [Venlafaxin* Shortness of Breath Gabapentin Intolerance Hydrochlorothiazide Vomiting Hydrocodone Bitartr* GI Upset Januvia [Sitaglipti* Other: See Comments muscle spasms Lipitor [Atorvastat* Other: See Comments abdominal cramping Lisinopril Other: See Comments Losartan Other: See Comments Metoprolol Diarrhea Oxycodone Intolerance Oxycontin [Oxycodon* Other: See Comments headaches Percocet [Oxycodone* GI Upset Pioglitazone GI Upset Plavix [Clopidogrel* Diarrhea, Vomiting Prozac [Fluoxetine * Other: See Comments low blood pressure Seasonal Allergies Other: See Comments Itchy eyes, runny nose, sneezing Steroids [Corticost* GI Upset deathly ill , joint pain Sulfa (Sulfonamide * Hives, Anaphylaxis yeast infections Tizanidine Hives Tramadol Vomiting MEDICATIONS: Current Outpatient Medications Medication Sig famotidine (PEPCID) 20 mg tablet nitroglycerin sublingual (NITROQUICK) 0.4 mg SL tablet Dissolve 1 tablet under the tongue as needed. FOR CHEST PAIN. IF NO RELIEF CALL 911 (more content not included)... [facility] 11-05-2023 Note HNO ID: [id number] Author: Rita Aj RT(R) Service: ? Author Type: Hospital Account Manager Type: Progress Notes Filed: 11/05/2023 1:54 PM Note Text: Radiology Service Progress Note DATE OF SERVICE: November 05, 2023 TIME: 1:54 PM PATIENT IDENTITY VERIFICATION COMPLETED USING TWO (2) STANDARD IDENTIFIERS: Name and Date of confirmed by patient verbally. FALL SCREENING: Has the patient had 2 falls in the last year or 1 fall with injury or currently using an Ambulatory Assistive Device (Walker, Cane, Wheelchair, Crutches, etc.)? No PATIENT GENDER DATA: Female. status: : No status: NO. PATIENT RELEVANT IMPLANT DATA REVIEWED: Yes ALLERGIES: Reviewed and unchanged CONTRAST ALLERGY: NO. EXAM: CT -CONTRAST INDUCED NEPHROPATHY RISK FACTORS: Patient age > 60 years CREATININE: Creatinine Date Value Ref Range Status 09/22/2021 0.75 0.58 - 0.96 mg/dL Final 03/14/2021 0.75 0.58 - 0.96 mg/dL Final 03/13/2021 0.86 0.58 - 0.96 mg/dL Final eGFR-All Other Races Date Value Ref Range Status 09/22/2021 >60 . Final Comment: eGFR (Estimated GFR) Units of measure: mL/min/1.73 meters squared eGFR is derived from the reexpressed MDRD Study equation using the following parameters: serum creatinine, age, gender and race. The creatinine assay has been calibrated to be traceable to IDMS. An eGFR <60 mL/min/1.73m2 for >3 months is consistent with chronic kidney disease. Refer to KDOQI guidelines for clinical interpretation. In patients with unstable renal function, e.g. those with acute kidney injury, the eGFR may not accurately reflect actual GFR. eGFR- Date Value Ref Range Status 09/22/2021 >60 Final P.O.C.T. RESULTS: POC done: Yes, See Lab Tab November 05, 2023 TREATMENT: N/A PERIPHERAL IV DATA: Ambulatory: A peripheral IV was started in the Left antecubital site with a Angio cath: 18 gauge. RADIOLOGY DEPARTMENT: CT; Exam(s) Completed: CTA Brain and CTA Neck SIGNATURE: RT Abdon(R) PATIENT NAME: Karolina Canada DATE: November 05, 2023 TIME: 1:54 PM [facility] 11-05-2023 History of Presen t illness Narrative Radiology Service Progress Note DATE OF SERVICE: November 05, 2023 TIME: 1:54 PM PATIENT IDENTITY VERIFICATION COMPLETED USING TWO (2) STANDARD IDENTIFIERS: Name and Date of confirmed by patient verbally. FALL SCREENING: Has the patient had 2 falls in the last year or 1 fall with injury or currently using an Ambulatory Assistive Device (Walker, Cane, Wheelchair, Crutches, etc.)? No PATIENT GENDER DATA: Female. status: : No status: NO. PATIENT RELEVANT IMPLANT DATA REVIEWED: Yes ALLERGIES: Reviewed and unchanged CONTRAST ALLERGY: NO. EXAM: CT -CONTRAST INDUCED NEPHROPATHY RISK FACTORS: Patient age > 60 years CREATININE: Creatinine Date Value Ref Range Status 09/22/2021 0.75 0.58 - 0.96 mg/dL Final 03/14/2021 0.75 0.58 - 0.96 mg/dL Final 03/13/2021 0.86 0.58 - 0.96 mg/dL Final eGFR-All Other Races Date Value Ref Range Status 09/22/2021 >60 . Final Comment: eGFR (Estimated GFR) Units of measure: mL/min/1.73 meters squared eGFR is derived from the reexpressed MDRD Study equation using the following parameters: serum creatinine, age, gender and race. The creatinine assay has been calibrated to be traceable to IDMS. An eGFR <60 mL/min/1.73m2 for >3 months is consistent with chronic kidney disease. Refer to KDOQI guidelines for clinical interpretation. In patients with unstable renal function, e.g. those with acute kidney injury, the eGFR may not accurately reflect actual GFR. eGFR- Date Value Ref Range Status 09/22/2021 >60 Final P.O.C.T. RESULTS: POC done: Yes, See Lab Tab November 05, 2023 TREATMENT: N/A PERIPHERAL IV DATA: Ambulatory: A peripheral IV was started in the Left antecubital site with a Angio cath: 18 gauge. RADIOLOGY DEPARTMENT: CT; Exam(s) Completed: CTA Brain and CTA Neck SIGNATURE: RT Abdon(Trisha) PATIENT NAME: Karolina Canada DATE: November 05, 2023 TIME: 1:54 PM documented in this encounter [facility] 10-19-2023 Note HNO ID: [id number] Author: Deyanira Reilly MD Service: ? Author Type: Physician Type: Progress Notes Filed: 10/19/2023 3:05 PM Note Text: Heart , Vascular and Thoracic [place] DEPARTMENT OF VASCULAR SURGERY OUTPATIENT VISIT DATE October 19, 2023 OUTPATIENT VISIT TYPE CONSULTATION SERVICE DATE: 10/19/2023 SERVICE TIME: 2:59 PM PRIMARY CARE PHYSICIAN: Tyrel Sy MD REFERRING PROVIDER: Charlotte Lewis [address] [facility] [address] [facility] [id number] Consult requested for an opinion regarding the evaluation and treatment of the above. My final impression and recommendations will be communicated back to the requesting physician by way of the shared medical record or letter via US mail. CHIEF COMPLAINT: Caroitd stenosis HISTORY OF PRESENT ILLNESS: Vascular consultation at the request of Dr. Charlotte Lewis. A copy of this consultation note will be provided to the requesting physician by way of shared Medical record or letter to requesting physician via US mail. Ms. Canada is a 67 year old female who is seen today for carotid stenosis. Ms. Canada has been followed for a few years with carotid US at [facility] for asymptomatic carotid stenosis - recent US showed an increase in the PSV on the R indicated a greater then 70% stenosis. She has a significant cardiac history including CABGx4, NH and previous cardiac stenting. Has a stress test recently that did not indicate ischemia. She is feeling weak and tired. No previous TIA or stroke. On ASA and statin. Former smoker. PAST MEDICAL HISTORY Diagnosis Date Benign neoplasm of duodenum, jejunum, and ileum CAD (coronary artery disease) bilateral Carotid artery stenosis Cyst on right wrist Diabetes (HCC) Diarrhea HLD (hyperlipidemia) HTN (hypertension) Hx of cardiac cath Knee pain NH (myocardial infarction) (HCC) Nausea Nausea with vomiting OA (osteoarthritis) Reflux Rotator cuff (capsule) sprain Rotator cuff tear, left S/P CABG (coronary artery bypass graft) S/P primary angioplasty with coronary stent 2006 RCA Status post primary angioplasty 2016 OM1 Stomach pain Unspecified cardiovascular disease Vomiting PAST SURGICAL HISTORY Procedure Laterality Date ARTHROSCOPY KNEE DIAGNOSTIC W/WO SYNOVIAL BX SPX 2004 Arthroscopy, knee, Rt. x3 CABG, ARTERIAL, FOUR+ 03/2006 COLONOSCOPY W/BIOPSY SINGLE/MULTIPLE 06/11/2011 ESOPHAGOGASTRODUODENOSCOPY TRANSORAL DIAGNOSTIC 01/31/2010 EGD LAPS ABD PRTMANDOMENTUM DX W/WO SPEC BR/WA SPX Laparoscopy x 3 PAST SURGICAL HISTORY OF gallbladder PAST SURGICAL HISTORY OF appendectomy PAST SURGICAL HISTORY OF carpal tunnel bilateral PAST SURGICAL HISTORY OF double hernia surgery PAST SURGICAL HISTORY OF hysterectomy PAST SURGICAL HISTORY OF 2016 Cardiac Stent, x 4 PAST SURGICAL HISTORY OF Open heart due to NH ROTATOR CUFF REPAIR 04/26/2013 left shoulder w/ sub AC decompression STENT PLACEMENT 2006 RCA TONSILLECTOMY PRIMARY/SECONDARY Tonsillectomy SOCIAL HISTORY: Social History Tobacco Use Smoking status: Former Packs/day: 0.50 Years: 35.00 Additional pack years: 0.00 Total pack years: 17.50 Types: Cigarettes Quit date: 03/01/2007 Years since quittin.6 Smokeless tobacco: Never Tobacco comments: 08-22-20 Strong tobacco smell present Vaping Use Vaping Use: Never used Substance Use Topics Alcohol use: No Drug use: Yes Frequency: 3.0 times per week Types: Marijuana Comment: medical marijuana FAMILY HISTORY Problem Relation Age of Onset None Mother Cancer Father bone Diabetes Sister foot cyst Colon Cancer Other Cousin other (Ulcerative Colitis) Maternal Aunt MEDICATIONS: nitroglycerin sublingual (NITROQUICK) 0.4 mg SL tabletDissolve 1 tablet under the tongue as needed. FOR CHEST PAIN. IF NO RELIEF CALL 911Disp: 25 tabletRfl: 3 Ferrous Gluconate (FERGON) 324 mg (38 mg iron) tabletTake 1 tablet by mouth twice daily.Disp: Rfl: acetaminophen (TYLENOL) 500 mg tabletTake 2 tablets by mouth every 6 hours.Disp: 50 tabletRfl: 0 (Patient taking differently: Take 1,000 mg by mouth every 8 hours as needed for pain.) cholecalciferol (VITAMIN D3) 1,000 unit tab tabletTake 1,000 Units by mouth once daily.Disp: Rfl: isosorbide mononitrate ER (IMDUR) 30 mg 24 hr tabletTake 1 tablet by mouth once daily.Disp: 30 tabletRfl: 11 [facility] and heart rate daily.Disp: 1 KitRfl: 0 glimepiride (AMARYL) 4 mg tabletTake 4 mg by mouth daily with breakfast.Disp: Rfl: atorvastatin (LIPITOR) 40 mg tabletTAKE 1 TABLET BY MOUTH ONCE DAILYDisp: 30 tabletRfl: 11 Omeprazole 40 mg capsuleTake 40 mg by mouth once daily.Disp: Rfl: linagliptin (TRADJENTA) 5 mg tabTake 5 mg by mouth once daily. Disp: Rfl: escitalopram oxalate (LEXAPRO) 10 mg tabletTake 10 mg by mouth once daily.Disp: Rfl: aspirin, enteric coated (ECOTRIN LOW STRENGTH) 81 mg EC (more content not included)... [facility] 10-19-2023 History of Presen t illness Narrative Images from the original note were not included. Heart , Vascular and Thoracic [place] DEPARTMENT OF VASCULAR SURGERY OUTPATIENT VISIT DATE October 19, 2023 OUTPATIENT VISIT TYPE CONSULTATION SERVICE DATE: 10/19/2023 SERVICE TIME: 2:59 PM PRIMARY CARE PHYSICIAN: Tyrel Sy MD REFERRING PROVIDER: Charlotte Lewis [address] [facility] [address] [facility] [id number] Consult requested for an opinion regarding the evaluation and treatment of the above. My final impression and recommendations will be communicated back to the requesting physician by way of the shared medical record or letter via US mail. CHIEF COMPLAINT: Caroitd stenosis HISTORY OF PRESENT ILLNESS: Vascular consultation at the request of Dr. Charlotte Lewis. A copy of this consultation note will be provided to the requesting physician by way of shared Medical record or letter to requesting physician via US mail. Ms. Canada is a 67 year old female who is seen today for carotid stenosis. Ms. Canada has been followed for a few years with carotid US at [facility] for asymptomatic carotid stenosis - recent US showed an increase in the PSV on the R indicated a greater then 70% stenosis. She has a significant cardiac history including CABGx4, NH and previous cardiac stenting. Has a stress test recently that did not indicate ischemia. She is feeling weak and tired. No previous TIA or stroke. On ASA and statin. Former smoker. PAST MEDICAL HISTORY Diagnosis Date Benign neoplasm of duodenum, jejunum, and ileum CAD (coronary artery disease) bilateral Carotid artery stenosis Cyst on right wrist Diabetes (HCC) Diarrhea HLD (hyperlipidemia) HTN (hypertension) Hx of cardiac cath Knee pain NH (myocardial infarction) (HCC) Nausea Nausea with vomiting OA (osteoarthritis) Reflux Rotator cuff (capsule) sprain Rotator cuff tear, left S/P CABG (coronary artery bypass graft) S/P primary angioplasty with coronary stent 2006 RCA Status post primary angioplasty 2016 OM1 Stomach pain Unspecified cardiovascular disease Vomiting PAST SURGICAL HISTORY Procedure Laterality Date ARTHROSCOPY KNEE DIAGNOSTIC W/WO SYNOVIAL BX SPX 2004 Arthroscopy, knee, Rt. x3 CABG, ARTERIAL, FOUR+ 03/2006 COLONOSCOPY W/BIOPSY SINGLE/MULTIPLE 06/11/2011 ESOPHAGOGASTRODUODENOSCOPY TRANSORAL DIAGNOSTIC 01/31/2010 EGD LAPS ABD PRTM&OMENTUM DX W/WO SPEC BR/WA SPX Laparoscopy x 3 PAST SURGICAL HISTORY OF gallbladder PAST SURGICAL HISTORY OF appendectomy PAST SURGICAL HISTORY OF carpal tunnel bilateral PAST SURGICAL HISTORY OF double hernia surgery PAST SURGICAL HISTORY OF hysterectomy PAST SURGICAL HISTORY OF 2016 Cardiac Stent, x 4 PAST SURGICAL HISTORY OF Open heart due to NH ROTATOR CUFF REPAIR 04/26/2013 left shoulder w/ sub AC decompression STENT PLACEMENT 2006 RCA TONSILLECTOMY PRIMARY/SECONDARY <AGE 13 Tonsillectomy SOCIAL HISTORY: Social History Tobacco Use Smoking status: Former Packs/day: 0.50 Years: 35.00 Additional pack years: 0.00 Total pack years: 17.50 Types: Cigarettes Quit date: 03/01/2007 Years since quittin.6 Smokeless tobacco: Never Tobacco comments: 08-22-20 Strong tobacco smell present Vaping Use Vaping Use: Never used Substance Use Topics Alcohol use: No Drug use: Yes Frequency: 3.0 times per week Types: Marijuana Comment: medical marijuana FAMILY HISTORY Problem Relation Age of Onset None Mother Cancer Father bone Diabetes Sister foot cyst Colon Cancer Other Cousin other (Ulcerative Colitis) Maternal Aunt MEDICATIONS: nitroglycerin sublingual (NITROQUICK) 0.4 mg SL tablet^Dissolve 1 tablet under the tongue as needed. FOR CHEST PAIN. IF NO RELIEF CALL 911^Disp: 25 tablet^Rfl: 3 Ferrous Gluconate (FERGON) 324 mg (38 mg iron) tablet^Take 1 tablet by mouth twice daily.^Disp: ^Rfl: acetaminophen (TYLENOL) 500 mg tablet^Take 2 tablets by mouth every 6 hours.^Disp: 50 tablet^Rfl: 0 (Patient taking differently: Take 1,000 mg by mouth every 8 hours as needed for pain.) cholecalciferol (VITAMIN D3) 1,000 unit tab tablet^Take 1,000 Units by mouth once daily.^Disp: ^Rfl: isosorbide mononitrate ER (IMDUR) 30 mg 24 hr tablet^Take 1 tablet by mouth once daily.^Disp: 30 tablet^Rfl: 11 Blood Pressure Monitor kit^Check home blood pressure and heart rate daily.^Disp: 1 Kit^Rfl: 0 glimepiride (AMARYL) 4 mg tablet^Take 4 mg by mouth daily with breakfast.^Disp: ^Rfl: atorvastatin (LIPITOR) 40 mg tablet^TAKE 1 TABLET BY MOUTH ONCE DAILY^Disp: 30 tablet^Rfl: 11 Omeprazole 40 mg capsule^Take 40 mg by mouth once daily.^Disp: ^Rfl: linagliptin (TRADJENTA) 5 mg tab^Take 5 mg by mouth once daily. ^Disp: ^Rfl: escitalopram oxalate (LEXAPRO) 10 mg tablet^Take 10 mg by mouth once daily.^Disp: ^Rfl: aspirin, enteric coated (ECOTRIN LOW STRENGTH) 81 mg EC tablet^Take 1 tablet by mouth once daily.^Disp: ^Rfl: iv contrast (will be provided with radiology test)^CTA Head/Neck W No IV access, insert saline lock prior to the sedation, infusion, injection for imaging exam. Discontinue saline lock post exam. If Pt. has a central line or IVAD, may access for administration according to line specific nursing protocol. Once exam is complete flush line and de-access according to line specific nursing protocol in the CT contrast administration guidelines link.^Disp: 1 Each^Rfl: 0 magnesium hydroxide (MOM) 400 mg/5 mL suspension^Take 30 mL by mouth every 6 hours as needed.^Disp: ^Rfl: (Patient not taking: Reported on 09/03/2023) UNIFINE PENTIPS PLUS 32 gauge x ^use with insulin pen DAILY DIRECTED^Disp: ^Rfl: (Patient not taking: Reported on 09/03/2023) LEVEMIR FLEXTOUCH U-100 INSULIN 100 unit/mL (3 mL) injection pen^Inject 46 Units subcutaneously daily at bedtime. ^Disp: ^Rfl: (Patient not taking: Reported on 09/03/2023) ALLERGIES: ALLERGIES Allergen Reactions Penicillins Hives Actos [Pioglitazone* Other: See Comments muscle spasms Adhesive Tape (Ashlee* Rash Skin comes off with tape Use paper tape Atorvastatin Vomiting Clopidogrel Vomiting Codeine GI Upset, Unknown Can take small amounts Cortisone loses nerve sensation Darvocet A500 [Prop* Hives Effexor [Venlafaxin* Shortness of Breath Gabapentin Intolerance Hydrochlorothiazide Vomiting Hydrocodone Bitartr* GI Upset Januvia [Sitaglipti* Other: See Comments muscle spasms Lipitor [Atorvastat* Other: See Comments abdominal cramping Lisinopril Other: See Comments Losartan Other: See Comments Metoprolol Diarrhea Oxycodone Intolerance Oxycontin [Oxycodon* Other: See Comments headaches Percocet [Oxycodone* GI Upset Pioglitazone GI Upset Plavix [Clopidogrel* Diarrhea, Vomiting Prozac [Fluoxetine * Other: See Comments low blood pressure Seasonal Allergies Other: See Comments Itchy eyes, runny nose, sneezing Steroids [Corticost* GI Upset deathly ill , joint pain Sulfa (Sulfonamide * Hives, Anaphylaxis yeast infections Tizanidine Hives Tramadol Vomiting REVIEW OF SYSTEM: Constitutional: No weight loss, malaise or fevers. Respiratory: Negative for SOB Cardiovascular: Negative for chest pain or recent NH Gatrointestinal: Negative for abdominal discomfort Genitourinary: Negative for CKD Musculoskeletal: Negative for joint pain or swelling, back pain or muscle pain Endocrine: Negative for DM Hematology/Lymphatic: No bleeding or clotting disorders Neurologic: Negative for stroke Integumentary: Negative for wounds PHYSICAL EXAM: VITALS: BP 110/62 Pulse 72 Resp 18 Ht 5' 4 (1.63m) Wt 132 lb (59.9kg) BMI 22.65 kg/(m^2). General: Alert and oriented, No acute distress HEENT: EOMI, No carotid bruit Cardiovascular: Pulse regular. Lungs: Normal breath sounds, no wheezes. Abdomen: Soft, non-tender. Extremities: No edema, no chronic skin changes, no ulceration Neurological: Normal cognition and motor skills. No weakness or sensory deficit. Vascular: 2+ bilateral radial palpable Diagnostic tests reviewed for today's visit: Most recent labs Most recent imaging OSH US - R ICA PSV >250, L ICA 50-69% IMPRESSION: Ms. Canada is a 67 year old female with carotid stenosis, asymptomatic. She is on maximal medical therapy including ASA and statin. We discussed today that she will need a CTA to determine the exact degree of stenosis and what surgical options may be indicated. She is overall feeling tired, and we also discussed that treating her carotid disease would not change her overall engery levels. Will need follow up after CTA. PLAN and RECOMMENDATIONS: Patient requires further work-up at this time. CTA head/neck Medical Decision Making: Problems: Moderate: 1+ chronic illnesses with change Data: Unique source(s) for external note(s) reviewed: 1 Unique test result(s) reviewed: 1 Unique test(s) ordered: 1 Medical Decision Making Level: 4 - Moderate I spent a total of 45 minutes on the date of the service which included preparing to see the patient, [id number] patient care, completing clinical documentation, obtaining and/or reviewing separately obtained history, performing a medically appropriate examination, counseling and educating the patient/family/caregiver, communicating with other HCPs (not separately reported), independently interpreting results (not separately reported) and communicating results to the patient/family/caregiver. SIGNATURE: Deyanira Reilly MD PATIENT NAME: Karolina Canada DATE: October 19, 2023 TIME: 2:59 PM documented in this encounter [facility] 10-11-2023 Miscellaneous Notes Spoke to Ms. Canada about test results. Patient voiced understanding. Megan Thurston LPN ----- Message from Charlotte Lewis APRN.UTILITIES AND MAINTENANCE SUPERVISOR sent at 10/11/2023 1:59 PM EST ----- Please call patient and notify her of stress testing results. Nuclear med stress testing does not suggest ischemia. No indication to pursue a left heart catheterization based on stress testing results. We will wait for echocardiogram results to determine if there is a cardiac cause for symptoms. Thank you! documented in this encounter [facility] 10-11-2023 Note HNO ID: [id number] Author: Sameera Salguero RN Service: ? Author Type: Registered Nurse Type: Progress Notes Filed: 10/11/2023 10:45 AM Note Text: RADIOLOGY SERVICE PROGRESS NOTE SERVICE DATE: 10/11/2023 SERVICE TIME: 914 PATIENT IDENTITY VERIFICATION COMPLETED USING TWO (2) METHODS: Patient confirmed name and Date of verbally. ALLERGIES AND MEDICATIONS REVIEWED BY: Sameera Salguero RN PROCEDURE TYPE: NM STRESS: 0.4 mg of Lexiscan was administered IV at 0930 over 10 Seconds by Sameera Salguero RN Reversal agent used:None LOT [id number] EXP 11/29/26 IV SITE: IV palced by nuclear tecnologist POST EXAM PIV STATUS: Discontinued by Driver License Examiner PATIENT DISCHARGED TO: Nuclear Medicine Department for post stress imaging A Diagnostic radioactive procedure has taken place, with no further precautions necessary other than routine body substance precautions. More information regarding radiation safety can be found using this link: [email or web address] SIGNATURE: Sameera Salguero RN PATIENT NAME:Karolina [place] DATE: 10/11/23 TIME: 10:44 AM [facility] 10-11-2023 Note HNO ID: [id number] Author: Talia Galicia RT(R) Service: Nuclear Medicine Author Type: Technologist Type: Progress Notes Filed: 10/11/2023 12:33 PM Note Text: RADIOLOGY SERVICE PROGRESS NOTE SERVICE DATE: 10/11/2023 SERVICE TIME: 08:10 AM PATIENT IDENTITY VERIFICATION COMPLETED USING TWO (2) STANDARD IDENTIFIERS: Name and Date of confirmed by patient verbally FALL SCREENING: Has the patient had 2 falls in the last year or 1 fall with injury or currently using an Ambulatory Assistive Device (Walker, Cane, Wheelchair, Crutches, etc.)? Yes, Patient High Risk for Falls What interventions were put in place to prevent falls during this visit? Instructed Patient to Call for Help if Needed, Offered Assistance with Transfers/Clothing, Instructed Patient to Remain Seated (Not on Exam Table) Until Exam, Increased Observations by Caregivers, and Escorted to/from Restroom PATIENT GENDER DATA: .female : No ALLERGIES: Reviewed and unchanged MEDICATIONS REVIEWED: No PATIENT RELEVANT IMPLANT DATA REVIEWED: Not Applicable CREATININE: Creatinine Date Value Ref Range Status 09/22/2021 0.75 0.58 - 0.96 mg/dL Final 03/14/2021 0.75 0.58 - 0.96 mg/dL Final 03/13/2021 0.86 0.58 - 0.96 mg/dL Final eGFR-All Other Races Date Value Ref Range Status 09/22/2021 >60 . Final Comment: eGFR (Estimated GFR) Units of measure: mL/min/1.73 meters squared eGFR is derived from the reexpressed MDRD Study equation using the following parameters: serum creatinine, age, gender and race. The creatinine assay has been calibrated to be traceable to IDMS. An eGFR <60 mL/min/1.73m2 for >3 months is consistent with chronic kidney disease. Refer to KDOQI guidelines for clinical interpretation. In patients with unstable renal function, e.g. those with acute kidney injury, the eGFR may not accurately reflect actual GFR. eGFR- Date Value Ref Range Status 09/22/2021 >60 Final P.O.C.T. RESULTS: N/A October 11, [address] PERFORMED: No IV SITE: Ambulatory: A peripheral IV was started in the Right forearm with a Angio cath: 24 gauge. POST EXAM PIV STATUS: Discontinued PROCEDURE TYPE: NM Stress: 11.9 mCi [id number] was administered IV for Rest Imaging at 08:17 by Talia Galicia. 31.7 mCi [id number]-Wdaqppu was administered IV for Stress Imaging at 09:30 by Talia Galicia. ADMINISTRATION TIME: PATIENT DISCHARGED TO: Ambulatory patient, left [place] department area. A Diagnostic radioactive procedure has taken place, with no further precautions necessary other than routine body substance precautions. More information regarding radiation safety can be found using this link: [email or web address]%20Me [email or web address] SIGNATURE: RT Nancy(R) PATIENT NAME: Karolina Canada DATE: October 11, 2023 TIME: 10:35 AM PAGER/CONTACT #: [facility] 10-11-2023 History of Presen t illness Narrative RADIOLOGY SERVICE PROGRESS NOTE SERVICE DATE: 10/11/2023 SERVICE TIME: 08:10 AM PATIENT IDENTITY VERIFICATION COMPLETED USING TWO (2) STANDARD IDENTIFIERS: Name and Date of confirmed by patient verbally FALL SCREENING: Has the patient had 2 falls in the last year or 1 fall with injury or currently using an Ambulatory Assistive Device (Walker, Cane, Wheelchair, Crutches, etc.)? Yes, Patient High Risk for Falls What interventions were put in place to prevent falls during this visit? Instructed Patient to Call for Help if Needed, Offered Assistance with Transfers/Clothing, Instructed Patient to Remain Seated (Not on Exam Table) Until Exam, Increased Observations by Caregivers, and Escorted to/from Restroom PATIENT GENDER DATA: .female : No ALLERGIES: Reviewed and unchanged MEDICATIONS REVIEWED: No PATIENT RELEVANT IMPLANT DATA REVIEWED: Not Applicable CREATININE: Creatinine Date Value Ref Range Status 09/22/2021 0.75 0.58 - 0.96 mg/dL Final 03/14/2021 0.75 0.58 - 0.96 mg/dL Final 03/13/2021 0.86 0.58 - 0.96 mg/dL Final eGFR-All Other Races Date Value Ref Range Status 09/22/2021 >60 . Final Comment: eGFR (Estimated GFR) Units of measure: mL/min/1.73 meters squared eGFR is derived from the reexpressed MDRD Study equation using the following parameters: serum creatinine, age, gender and race. The creatinine assay has been calibrated to be traceable to IDMS. An eGFR <60 mL/min/1.73m2 for >3 months is consistent with chronic kidney disease. Refer to KDOQI guidelines for clinical interpretation. In patients with unstable renal function, e.g. those with acute kidney injury, the eGFR may not accurately reflect actual GFR. eGFR- Date Value Ref Range Status 09/22/2021 >60 Final P.O.C.T. RESULTS: N/A October 11, [address] PERFORMED: No IV SITE: Ambulatory: A peripheral IV was started in the Right forearm with a Angio cath: 24 gauge. POST EXAM PIV STATUS: Discontinued PROCEDURE TYPE: NM Stress: 11.9 mCi [id number]-[id number] was administered IV for Rest Imaging at 08:17 by Talia Galicia. 31.7 mCi Ij25f-Mlcoajf was administered IV for Stress Imaging at 09:30 by Talia aGlicia. ADMINISTRATION TIME: PATIENT DISCHARGED TO: Ambulatory patient, left [place] department area. A Diagnostic radioactive procedure has taken place, with no further precautions necessary other than routine body substance precautions. More information regarding radiation safety can be found using this link: [email or web address] [email or web address] df SIGNATURE: JAMES Cruz) PATIENT NAME: Karolina Canada DATE: October 11, 2023 TIME: 10:35 AM PAGER/CONTACT #: documented in this encounter [facility] 10-11-2023 Miscellaneous Notes Please call patient and notify her of stress testing results. Nuclear med stress testing does not suggest ischemia. No indication to pursue a left heart catheterization based on stress testing results. We will wait for echocardiogram results to determine if there is a cardiac cause for symptoms. Thank you! documented in this encounter [facility] 10-01-2023 Note HNO ID: [id number] Author: Charlotte Lewis APRN.UTILITIES AND MAINTENANCE SUPERVISOR Service: ? Author Type: Nurse Practitioner Type: Progress Notes Filed: 10/05/2023 1:17 PM Note Text: Chief Complaint Patient presents with: Chest Pain History of Present Illness: Karolina Canada is a very pleasant 67 year old female who presents for 4 week follow up. She has a PMhx of CAD (s/p PCI to RCA 2006 with subsequent CABG x4 in 2006 subsequent PCI to OM 2015), chronic angina, hypertension, hyperlipidemia, DM2, carotid stenosis, former smoker, COPD, patient reported history of a lung resection, patient reported history of anemia, former smoker. She was seen in new consult by Dr. Phelan in office last month. She has seen multiple cardiologists for different opinions including Dr. Khan at our [place] location, and Dr. Mancilla at [facility]. She underwent a previous cardiac catheterization by Dr. Lopez at [facility] in 2019. Today, she endorses limiting fatigue, dyspnea on exertion, chest discomfort and lightheadedness. Reported lower extremity swelling has resolved without any clear intervention. She is not able to make her bed or walk around the store without feeling limited by symptoms. She states she had a left heart catheterization 6 months ago at [facility]. Results are not available for my review. We did receive her most recent echocardiogram which was from January 2023 with largely normal structure and function. We also received carotid ultrasound results revealing 50 and 70% stenosis for which she would like to see one of her vascular doctors. We reviewed risk factor modifications and lifestyle management. She is not able to tolerate very much medication management due to multiple allergies. PAST MEDICAL HISTORY Diagnosis Date Benign neoplasm of duodenum, jejunum, and ileum CAD (coronary artery disease) Cyst on right wrist Diabetes (HCC) Diarrhea HLD (hyperlipidemia) HTN (hypertension) Hx of cardiac cath Knee pain NH (myocardial infarction) (HCC) Nausea Nausea with vomiting OA (osteoarthritis) Reflux Rotator cuff (capsule) sprain Rotator cuff tear, left S/P CABG (coronary artery bypass graft) S/P primary angioplasty with coronary stent 2006 RCA Status post primary angioplasty 2016 OM1 Stomach pain Unspecified cardiovascular disease Vomiting PAST SURGICAL HISTORY Procedure Laterality Date ARTHROSCOPY KNEE DIAGNOSTIC W/WO SYNOVIAL BX SPX 2004 Arthroscopy, knee, Rt. x3 CABG, ARTERIAL, FOUR+ 03/2006 COLONOSCOPY W/BIOPSY SINGLE/MULTIPLE 06/11/2011 ESOPHAGOGASTRODUODENOSCOPY TRANSORAL DIAGNOSTIC 01/31/2010 EGD LAPS ABD PRTMANDOMENTUM DX W/WO SPEC BR/WA SPX Laparoscopy x 3 PAST SURGICAL HISTORY OF gallbladder PAST SURGICAL HISTORY OF appendectomy PAST SURGICAL HISTORY OF carpal tunnel bilateral PAST SURGICAL HISTORY OF double hernia surgery PAST SURGICAL HISTORY OF hysterectomy PAST SURGICAL HISTORY OF 2016 Cardiac Stent, x 4 PAST SURGICAL HISTORY OF Open heart due to NH ROTATOR CUFF REPAIR 04/26/2013 left shoulder w/ sub AC decompression STENT PLACEMENT 2006 RCA TONSILLECTOMY PRIMARY/SECONDARY Tonsillectomy FAMILY HISTORY Problem Relation Age of Onset None Mother Cancer Father bone Diabetes Sister foot cyst Colon Cancer Other Cousin other (Ulcerative Colitis) Maternal Aunt Social History Tobacco Use Smoking status: Former Packs/day: 0.50 Years: 35.00 Additional pack years: 0.00 Total pack years: 17.50 Types: Cigarettes Quit date: 03/01/2007 Years since quittin.6 Smokeless tobacco: Never Tobacco comments: 08-22-20 Strong tobacco smell present Vaping Use Vaping Use: Never used Substance Use Topics Alcohol use: No Drug use: Yes Frequency: 3.0 times per week Types: Marijuana Comment: medical marijuana ALLERGIES Allergen Reactions Penicillins Hives Actos [Pioglitazone* Other: See Comments muscle spasms Adhesive Tape (Ashlee* Rash Skin comes off with tape Use paper tape Atorvastatin Vomiting Clopidogrel Vomiting Codeine GI Upset, Unknown Can take small amounts Cortisone loses nerve sensation Darvocet A500 [Prop* Hives Effexor [Venlafaxin* Shortness of Breath Gabapentin Intolerance Hydrochlorothiazide Vomiting Hydrocodone Bitartr* GI Upset Januvia [Sitaglipti* Other: See Comments muscle spasms Lipitor [Atorvastat* Other: See Comments abdominal cramping Lisinopril Other: See Comments Losartan Other: See Comments Metoprolol Diarrhea Oxycodone Intolerance Oxycontin [Oxycodon* Other: See Comments headaches Percocet [Oxycodone* GI Upset Pioglitazone GI Upset Plavix [Clopidogrel* Diarrhea, Vomiting Prozac [Fluoxetine * Other: See Comments low blood pressure Seasonal Allergies Other: See Comments Itchy eyes, runny nose, sneezing Steroids [Corticost* GI Upset deathly ill , joint pain Sulfa (Sulfonamide * Hives, Rahel (more content not included)... [facility] 09-03-2023 Note HNO ID: [id number] Author: Dede Phelan MD Service: ? Author Type: Physician Type: Progress Notes Filed: 09/03/2023 3:11 PM Note Text: Heart, Vascular and Thoracic [place] Jared Carrizales Department of Cardiovascular Medicine SECTION OF INTERVENTIONAL CARDIOLOGY OUTPATIENT VISIT DATE 09/03/2023 OUTPATIENT VISIT TYPE NEW PRIMARY CARE PHYSICIAN: Tyrel Sy ([facility]) [address] [place] [address] REFERRING PHYSICIAN: SELF CHIEF COMPLAINT: Patient presents with: New Patient: Ref by pcp h/o left heart cath with Dr. Lopez HISTORY OF PRESENT ILLNESS: Ms. Canada is a 67 year old female who presents today for the follow-up. She has PMH of the DM, CAD (S/P CABG, PCI) HTN, HLP, and PAD (per patient has bilateral carotid artery stenosis). She mentioned that about 5 months ago has [facility] out side hospital and ever since has lower extremity swelling. She is concern for the carotid arteries, complain of the dizziness and SOB. She is depressed and while we were talking she breaking to tears. Risk factors for coronary artery disease hyperlipidemia, hypertension, history of smoking, diabetes She denies chest pain PAST CARDIAC HISTORY: Hx of CABG and PCI PAST MEDICAL HISTORY Diagnosis Date Benign neoplasm of duodenum, jejunum, and ileum CAD (coronary artery disease) Cyst on right wrist Diabetes (HCC) Diarrhea HLD (hyperlipidemia) HTN (hypertension) Hx of cardiac cath Knee pain NH (myocardial infarction) (HCC) Nausea Nausea with vomiting OA (osteoarthritis) Reflux Rotator cuff (capsule) sprain Rotator cuff tear, left S/P CABG (coronary artery bypass graft) S/P primary angioplasty with coronary stent 2006 RCA Status post primary angioplasty 2016 OM1 Stomach pain Unspecified cardiovascular disease Vomiting PAST SURGICAL HISTORY Procedure Laterality Date ARTHROSCOPY KNEE DIAGNOSTIC W/WO SYNOVIAL BX SPX 2004 Arthroscopy, knee, Rt. x3 CABG, ARTERIAL, FOUR+ 03/2006 COLONOSCOPY W/BIOPSY SINGLE/MULTIPLE 06/11/2011 ESOPHAGOGASTRODUODENOSCOPY TRANSORAL DIAGNOSTIC 01/31/2010 EGD LAPS ABD PRTMANDOMENTUM DX W/WO SPEC BR/WA SPX Laparoscopy x 3 PAST SURGICAL HISTORY OF gallbladder PAST SURGICAL HISTORY OF appendectomy PAST SURGICAL HISTORY OF carpal tunnel bilateral PAST SURGICAL HISTORY OF double hernia surgery PAST SURGICAL HISTORY OF hysterectomy PAST SURGICAL HISTORY OF 2016 Cardiac Stent, x 4 PAST SURGICAL HISTORY OF Open heart due to NH ROTATOR CUFF REPAIR 04/26/2013 left shoulder w/ sub AC decompression STENT PLACEMENT 2006 RCA TONSILLECTOMY PRIMARY/SECONDARY Tonsillectomy SOCIAL HISTORY Social History Tobacco Use Smoking status: Former Packs/day: 0.50 Years: 35.00 Additional pack years: 0.00 Total pack years: 17.50 Types: Cigarettes Quit date: 03/01/2007 Years since quittin.5 Smokeless tobacco: Never Tobacco comments: 08-22-20 Strong tobacco smell present Vaping Use Vaping Use: Never used Substance Use Topics Alcohol use: No Drug use: Yes Frequency: 3.0 times per week Types: Marijuana Comment: medical marijuana FAMILY HISTORY Problem Relation Age of Onset None Mother Cancer Father bone Diabetes Sister foot cyst Colon Cancer Other Cousin other (Ulcerative Colitis) Maternal Aunt ALLERGIES: ALLERGIES Allergen Reactions Penicillins Hives Actos [Pioglitazone* Other: See Comments muscle spasms Adhesive Tape (Ashlee* Rash Skin comes off with tape Use paper tape Atorvastatin Vomiting Clopidogrel Vomiting Codeine GI Upset, Unknown Can take small amounts Cortisone loses nerve sensation Darvocet A500 [Prop* Hives Effexor [Venlafaxin* Shortness of Breath Gabapentin Intolerance Hydrochlorothiazide Vomiting Hydrocodone Bitartr* GI Upset Januvia [Sitaglipti* Other: See Comments muscle spasms Lipitor [Atorvastat* Other: See Comments abdominal cramping Lisinopril Other: See Comments Losartan Other: See Comments Metoprolol Diarrhea Oxycodone Intolerance Oxycontin [Oxycodon* Other: See Comments headaches Percocet [Oxycodone* GI Upset Pioglitazone GI Upset Plavix [Clopidogrel* Diarrhea, Vomiting Prozac [Fluoxetine * Other: See Comments low blood pressure Seasonal Allergies Other: See Comments Itchy eyes, runny nose, sneezing Steroids [Corticost* GI Upset deathly ill , joint pain Sulfa (Sulfonamide * Hives, Anaphylaxis yeast infections Tizanidine Hives Tramadol Vomiting MEDICATIONS: Ferrous Gluconate (FERGON) 324 mg (38 mg iron) tabletTake 1 tablet by mouth twice daily.Disp: Rfl: acetaminophen (TYLENOL) 500 mg tabletTake 2 tablets by mouth every 6 hours.Disp: 50 tabletRfl: 0 (Patient taking differently: Take 1,000 mg by mouth every 8 hours as needed for pain.) cholecalciferol (VITAMIN D3) 1,000 unit tab tabletTake 1,000 Units by mouth once daily. (more content not included)... [facility] 09-03-2023 History of Presen t illness Narrative Images from the original note were not included. Heart, Vascular and Thoracic [place] Jraed Carrizales Department of Cardiovascular Medicine SECTION OF INTERVENTIONAL CARDIOLOGY OUTPATIENT VISIT DATE 09/03/2023 OUTPATIENT VISIT TYPE NEW PRIMARY CARE PHYSICIAN: Tyrel Sy ([facility]) [address] [place] [address] REFERRING PHYSICIAN: SELF CHIEF COMPLAINT: Patient presents with: New Patient: Ref by pcp h/o left heart cath with Dr. Lopez HISTORY OF PRESENT ILLNESS: Ms. Canada is a 67 year old female who presents today for the follow-up. She has PMH of the DM, CAD (S/P CABG, PCI) HTN, HLP, and PAD (per patient has bilateral carotid artery stenosis). She mentioned that about 5 months ago has [facility] out side hospital and ever since has lower extremity swelling. She is concern for the carotid arteries, complain of the dizziness and SOB. She is depressed and while we were talking she breaking to tears. Risk factors for coronary artery disease hyperlipidemia, hypertension, history of smoking, diabetes She denies chest pain PAST CARDIAC HISTORY: Hx of CABG and PCI PAST MEDICAL HISTORY Diagnosis Date Benign neoplasm of duodenum, jejunum, and ileum CAD (coronary artery disease) Cyst on right wrist Diabetes (HCC) Diarrhea HLD (hyperlipidemia) HTN (hypertension) Hx of cardiac cath Knee pain NH (myocardial infarction) (HCC) Nausea Nausea with vomiting OA (osteoarthritis) Reflux Rotator cuff (capsule) sprain Rotator cuff tear, left S/P CABG (coronary artery bypass graft) S/P primary angioplasty with coronary stent 2006 RCA Status post primary angioplasty 2016 OM1 Stomach pain Unspecified cardiovascular disease Vomiting PAST SURGICAL HISTORY Procedure Laterality Date ARTHROSCOPY KNEE DIAGNOSTIC W/WO SYNOVIAL BX SPX 2004 Arthroscopy, knee, Rt. x3 CABG, ARTERIAL, FOUR+ 03/2006 COLONOSCOPY W/BIOPSY SINGLE/MULTIPLE 06/11/2011 ESOPHAGOGASTRODUODENOSCOPY TRANSORAL DIAGNOSTIC 01/31/2010 EGD LAPS ABD PRTM&OMENTUM DX W/WO SPEC BR/WA SPX Laparoscopy x 3 PAST SURGICAL HISTORY OF gallbladder PAST SURGICAL HISTORY OF appendectomy PAST SURGICAL HISTORY OF carpal tunnel bilateral PAST SURGICAL HISTORY OF double hernia surgery PAST SURGICAL HISTORY OF hysterectomy PAST SURGICAL HISTORY OF 2015 Cardiac Stent, x 4 PAST SURGICAL HISTORY OF Open heart due to NH ROTATOR CUFF REPAIR 04/26/2013 left shoulder w/ sub AC decompression STENT PLACEMENT 2006 RCA TONSILLECTOMY PRIMARY/SECONDARY <AGE 13 Tonsillectomy SOCIAL HISTORY Social History Tobacco Use Smoking status: Former Packs/day: 0.50 Years: 35.00 Additional pack years: 0.00 Total pack years: 17.50 Types: Cigarettes Quit date: 03/01/2007 Years since quittin.5 Smokeless tobacco: Never Tobacco comments: 08-22-20 Strong tobacco smell present Vaping Use Vaping Use: Never used Substance Use Topics Alcohol use: No Drug use: Yes Frequency: 3.0 times per week Types: Marijuana Comment: medical marijuana FAMILY HISTORY Problem Relation Age of Onset None Mother Cancer Father bone Diabetes Sister foot cyst Colon Cancer Other Cousin other (Ulcerative Colitis) Maternal Aunt ALLERGIES: ALLERGIES Allergen Reactions Penicillins Hives Actos [Pioglitazone* Other: See Comments muscle spasms Adhesive Tape (Ashlee* Rash Skin comes off with tape Use paper tape Atorvastatin Vomiting Clopidogrel Vomiting Codeine GI Upset, Unknown Can take small amounts Cortisone loses nerve sensation Darvocet A500 [Prop* Hives Effexor [Venlafaxin* Shortness of Breath Gabapentin Intolerance Hydrochlorothiazide Vomiting Hydrocodone Bitartr* GI Upset Januvia [Sitaglipti* Other: See Comments muscle spasms Lipitor [Atorvastat* Other: See Comments abdominal cramping Lisinopril Other: See Comments Losartan Other: See Comments Metoprolol Diarrhea Oxycodone Intolerance Oxycontin [Oxycodon* Other: See Comments headaches Percocet [Oxycodone* GI Upset Pioglitazone GI Upset Plavix [Clopidogrel* Diarrhea, Vomiting Prozac [Fluoxetine * Other: See Comments low blood pressure Seasonal Allergies Other: See Comments Itchy eyes, runny nose, sneezing Steroids [Corticost* GI Upset deathly ill , joint pain Sulfa (Sulfonamide * Hives, Anaphylaxis yeast infections Tizanidine Hives Tramadol Vomiting MEDICATIONS: Ferrous Gluconate (FERGON) 324 mg (38 mg iron) tablet^Take 1 tablet by mouth twice daily.^Disp: ^Rfl: acetaminophen (TYLENOL) 500 mg tablet^Take 2 tablets by mouth every 6 hours.^Disp: 50 tablet^Rfl: 0 (Patient taking differently: Take 1,000 mg by mouth every 8 hours as needed for pain.) cholecalciferol (VITAMIN D3) 1,000 unit tab tablet^Take 1,000 Units by mouth once daily.^Disp: ^Rfl: isosorbide mononitrate ER (IMDUR) 30 mg 24 hr tablet^Take 1 tablet by mouth once daily.^Disp: 30 tablet^Rfl: 11 Blood Pressure Monitor kit^Check home blood pressure and heart rate daily.^Disp: 1 Kit^Rfl: 0 glimepiride (AMARYL) 4 mg tablet^Take 4 mg by mouth daily with breakfast.^Disp: ^Rfl: atorvastatin (LIPITOR) 40 mg tablet^TAKE 1 TABLET BY MOUTH ONCE DAILY^Disp: 30 tablet^Rfl: 11 Omeprazole 40 mg capsule^Take 40 mg by mouth once daily.^Disp: ^Rfl: linagliptin (TRADJENTA) 5 mg tab^Take 5 mg by mouth once daily. ^Disp: ^Rfl: escitalopram oxalate (LEXAPRO) 10 mg tablet^Take 10 mg by mouth once daily.^Disp: ^Rfl: aspirin, enteric coated (ECOTRIN LOW STRENGTH) 81 mg EC tablet^Take 1 tablet by mouth once daily.^Disp: ^Rfl: nitroglycerin sublingual (NITROQUICK) 0.4 mg SL tablet^Dissolve 1 tablet under the tongue as needed. FOR CHEST PAIN. IF NO RELIEF CALL 911^Disp: 25 tablet^Rfl: 3 magnesium hydroxide (MOM) 400 mg/5 mL suspension^Take 30 mL by mouth every 6 hours as needed.^Disp: ^Rfl: (Patient not taking: Reported on 09/03/2023) UNIFINE PENTIPS PLUS 32 gauge x 32 ^use with insulin pen DAILY DIRECTED^Disp: ^Rfl: (Patient not taking: Reported on 09/03/2023) LEVEMIR FLEXTOUCH U-100 INSULIN 100 unit/mL (3 mL) injection pen^Inject 46 Units subcutaneously daily at bedtime. ^Disp: ^Rfl: (Patient not taking: Reported on 09/03/2023) REVIEW OF SYSTEMS: All 12 systems reviewed, all negative except what mentioned in HPI. PHYSICAL EXAMINATION: BP 83/41 Pulse 78 Ht 5' 4 (1.63m) Wt 132 lb (59.9kg) SpO2 99% BMI 22.65 kg/(m^2). General:well developed, thin Skin:warm and dry Lungs:no rales Heart:S1, S2 normal and S4 present PV Pulses:pulses intact Abdomen:soft, non-tender, bowel sounds present Extremities:edema 2+ pedal and bilateral Edema Scale:2+ CARDIOVASCULAR MEDICINE TESTING: Electrocardiogram: NSR, LBBB I have personally reviewed the Electrocardiogram. IMPRESSION: Ms. Canada is a 67 year old female with DM, HTN, HLP, CAD and pAD who came for the follow up on PAD and lower extremities swelling . ASSESSMENT/PLAN: 1. Presence of stent in left circumflex coronary artery - ICD9: V45.82, ICD10: Z95.5 (primary diagnosis) - ECG B/O W INTERP (MED OFFICE) - ECHO - Request the record from out side hospital 2. 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 (HCC) - ICD9: 414.03, 411.1, ICD10: I25.730 - ECHO - PERFLUTREN LIPID MICROSPHERES 1.1 MG/ML INJECTION IN NS 10 ML - SODIUM CHLORIDE 0.9 % (FLUSH) INJECTION SYRINGE 3. Swelling of limb [M79.89] - ICD9: 729.81, ICD10: M79.89 Her BP is low to start any diuretic at this point 4. Carotid artery stenosis Request the US to decide base on the result No problem-specific Assessment & Plan notes found for this encounter. Dede Phelan MD,[facility] Regional Section of Interventional Cardiology [address], [facility] documented in this encounter [facility] 09-03-2023 Nurse Note C/o chest pain at times,c/o being fatigue. Matilda Benson MA documented in this encounter [facility] Diagnosis Coronary artery disease of [place] 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) HANCOCK (dyspnea on exertion) Other dyspnea and respiratory abnormality [facility] Diagnosis Bilateral carotid artery stenosis- Primary Occlusion and stenosis of carotid artery without mention of cerebral infarction Occlusion and stenosis of unspecified carotid artery [facility] Diagnosis Occlusion and stenosis of unspecified carotid artery [facility] Diagnosis Pre-op examination Preoperative examination, unspecified Coronary artery disease of [place] 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) S/P coronary artery stent placement Postsurgical percutaneous transluminal coronary angioplasty status Essential hypertension Unspecified essential hypertension Mixed hyperlipidemia Centrilobular emphysema (HCC) Other emphysema Gastroesophageal reflux disease, unspecified whether esophagitis present Iron deficiency anemia, unspecified iron deficiency anemia type Bilateral carotid artery stenosis Occlusion and stenosis of carotid artery without mention of cerebral infarction Marijuana use Cannabis abuse, unspecified Chest pain, unspecified type Bilateral carotid artery stenosis Occlusion and stenosis of carotid artery without mention of cerebral infarction documented in this [facility] Outpatient Procedure (Routine) - Pending Review Specialty Diagnoses / Procedures Referred By Contac t Referred To Contact [facility] Diagnoses Presence of stent in left circumflex coronary artery 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 (HCC) Procedures ECHO ECHO TTHRC R-T 2D W/WOM-MODE COMPL SPEC&COLR D Dede Phelan MD [address] [place] [address] [facility] [address] [place] [address] Referral ID Status Reason Start Date Expiration Date Visits Requested Visits Authorized [id number] Pending Review Auto-Generat ed Referral 09/03/2023 09/02/2024 1 1 [facility] for referral (narrative)* Diagnostic Procedure Only (Routine) - Closed Specialty Diagnoses / Procedures Referred By Mounikaac t Referred To Contact [facility] Diagnoses Coronary artery disease of [place] 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) HANCOCK (dyspnea on exertion) Procedures NM CARDIAC PERF STRESS/PHARM MYOCARDIAL SPECT MULTIPLE STUDIES Charlotte Lewis APRN.CNP [address] [place] [address] [facility] [address] [place] [address] Referral ID Status Reason Start Date Expiration Date V isits Requested Visits Authorized [id number] Closed Auto-Generate d Referral 10/01/2023 10/30/2024 1 1 [facility] for visit Narrative* Diagnostic Procedure Only (Routine) - Closed Specialty Diagnoses / Procedures Referred By Paulie t Referred To Contact [facility] Diagnoses Coronary artery disease of [place] 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) HANCOCK (dyspnea on exertion) Procedures NM CARDIAC PERF STRESS/PHARM MYOCARDIAL SPECT MULTIPLE STUDIES Charlotte Lewis APRN.CNP [address] [place] [address] [facility] [address] [place] [address] Referral ID Status Reason Start Date Expiration Date V isits Requested Visits Authorized [id number] Closed Auto-Generate d Referral 10/01/2023 10/30/2024 1 1 [facility] Summary Purpose Family History No Family History Records FoundNo Family History Records FoundNo Family History Records FoundNo Family History Records FoundNo Family History Records FoundNo Family History Records Found Advance Directives Documents on File Type Date Recorded Patient 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 Addiction Coordinator Expl anation Advance Directive(s) 03/07/2021 2:14 PM Documents on File Type Date Recorded Patient Substance Addiction Coordinator Expl anation Advance Directive(s) 03/07/2021 2:14 PM Reason for Referral Specialty Diagnoses / Procedures Referred By Paulie t Referred To Contact CT IMAGING Diagnoses Occlusion and stenosis of unspecified carotid artery Procedures CTA NECK W IVCON CT ANGIOGRAPHY NECK W/CONTRAST/NONCONTRAST Deyanira Reilly MD [address] [place] [address] [place] [address] Referral ID Status Reason Start Date Expiration Date Visits Requested Visits Authorized [id number] Pending Review Auto-Generat ed Referral 3 11/17/2024 1 1 Specialty Diagnoses / Procedures Referred By Contac t Referred To Contact CT IMAGING Diagnoses Occlusion and stenosis of unspecified carotid artery Procedures CTA HEAD W IVCON CT ANGIOGRAPHY HEAD W/CONTRAST/NONCONTRAST Deyanira Reilly MD [address] [place] [address] [place] [address] Referral ID Status Reason Start Date Expiration Date Visits Requested Visits Authorized [id number] Pending Review Auto-Generat ed Referral 3 11/17/2024 1 1 Referral ID Status Reason Start Date Expiration Date V isits Requested Visits Authorized [id number] Closed Auto-Generate d Referral 10/19/2023 11/17/2024 1 1 Referral ID Status Reason Start Date Expiration Date V isits Requested Visits Authorized [id number] Closed Auto-Generate d Referral 10/19/2023 11/17/2024 1 1 Additional Source Comments INFORMATION SOURCE (unrecogn ized section and content) DATE CREATED AUTHOR AUTHOR'S ORGANIZ ATION 05/20/2018 [facility] DATE CREATED AUTHOR AUTHOR'S ORGANIZ ATION 05/29/2019 [facility] DATE CREATED AUTHOR AUTHOR'S ORGANIZ ATION 07/15/2019 [facility] DATE CREATED AUTHOR AUTHOR'S ORGANIZ ATION 11/08/2023 [facility] DATE CREATED AUTHOR AUTHOR'S ORGANIZ ATION 01/26/2024 [facility] Source Comments (unrecognize d section and content) In the event this informatio n is protected by the Federal Confidentiality of Alcohol and Drug Abuse Patient Records regulations: The Federal rules restrict any use of the information to criminally investigate or prosecute any alcohol or drug abuse patient.[facility] the event this information is protected by the Federal Confidentiality of Alcohol and Drug Abuse Patient Records regulations: The Federal rules restrict any use of the information to criminally investigate or prosecute any alcohol or drug abuse patient.[facility] Hospital[facility] the event this information is protected by the Federal Confidentiality of Alcohol and Drug Abuse Patient Records regulations: The Federal rules restrict any use of the information to criminally investigate or prosecute any alcohol or drug abuse patient.[facility] the event this information is protected by the Federal Confidentiality of Alcohol and Drug Abuse Patient Records regulations: The Federal rules restrict any use of the information to criminally investigate or prosecute any alcohol or drug abuse patient.[facility] the event this information is protected by the Federal Confidentiality of Alcohol and Drug Abuse Patient Records regulations: The Federal rules restrict any use of the information to criminally investigate or prosecute any alcohol or drug abuse patient.[facility] Hospital[facility] the event this information is protected by the Federal Confidentiality of Alcohol and Drug Abuse Patient Records regulations: The Federal rules restrict any use of the information to criminally investigate or prosecute any alcohol or drug abuse patient.[facility] Hospital[facility] the event this information is protected by the Federal Confidentiality of Alcohol and Drug Abuse Patient Records regulations: The Federal rules restrict any use of the information to criminally investigate or prosecute any alcohol or drug abuse patient.[facility] Hospital[facility] the event this information is protected by the Federal Confidentiality of Alcohol and Drug Abuse Patient Records regulations: The Federal rules restrict any use of the information to criminally investigate or prosecute any alcohol or drug abuse patient.[facility] Hospital[facility] the event this information is protected by the Federal Confidentiality of Alcohol and Drug Abuse Patient Records regulations: The Federal rules restrict any use of the information to criminally investigate or prosecute any alcohol or drug abuse patient.[facility] HospitalIn the event this information is protected by the Federal Confidentiality of Alcohol and Drug Abuse Patient Records regulations: The Federal rules restrict any use of the information to criminally investigate or prosecute any alcohol or drug abuse patient.[facility] HospitalIn the event this information is protected by the Federal Confidentiality of Alcohol and Drug Abuse Patient Records regulations: The Federal rules restrict any use of the information to criminally investigate or prosecute any alcohol or drug abuse patient.[facility] HospitalIn the event this information is protected by the Federal Confidentiality of Alcohol and Drug Abuse Patient Records regulations: The Federal rules restrict any use of the information to criminally investigate or prosecute any alcohol or drug abuse patient.[facility] Reason for Visit (unrecogniz ed section and content) Reason Comments Results Reason Comments Radiology NM Specialty Diagnoses / Procedures Referred By Contac t Referred To Contact [facility]LECULAR [facility] FUNCTIONAL IMAGING Diagnoses Coronary artery disease of [place] 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) HANCOCK (dyspnea on exertion) Procedures NM CARDIAC PERF STRESS/PHARM MYOCARDIAL SPECT MULTIPLE STUDIES Charlotte Lewis APRN.UTILITIES AND MAINTENANCE SUPERVISOR [address] [place] [address] [facility] [address] [place] [address] Referral ID Status Reason Start Date Expiration Date V isits Requested Visits Authorized [id number] Closed Auto-Generate d Referral 10/01/2023 10/30/2024 1 1 Reason Comments Carotid artery stenosis Karolina is new pt rfd by Charlotte Lewis CNP Reason Comments Radiology CT Specialty Diagnoses / Procedures [facility] Ref[facility] To Contact CT IMAGING Diagnoses Occlusion and stenosis of unspecified carotid artery Procedures CTA NECK W IVCON CT ANGIOGRAPHY NECK W/CONTRAST/NONCONTRAST Deyanira Reilly MD [address] [place] [address] [place] [address] Referral ID Status Reason Start Date Expiration Date V isits Requested Visits Authorized [id number] Closed Auto-Generate d Referral 10/19/2023 11/17/2024 1 1 Reason Onset Date Comments Cardiac clearance needed 01/13/2024 Reason Comments Cardiac Clearance Reason Comments General Weakness Care Teams (unrecognized sec tion and content) Stock Sorter Relationship Specialty Start Date End Date Tyrel Sy MD [address] [place] [address] PCP - General 01/02/09 Ye Ceballos V [address] [facility] [place] [phone] Referring Internal Medicine 02/07/21 Stock Sorter Relationship Specialty Start Date End Date Tyrel Sy MD [address] [place], [place] [id number] PCP - General 01/02/09 Ye Ceballos V [address] [place] [phone] Referring Internal Medicine 02/07/21 Stock Sorter Relationship Specialty Start Date End Date Tyrel Sy MD [address] [place], [place] [id number] PCP - General 01/02/09 Ye Ceballos V [address] [place] [phone] Referring Internal Medicine 02/07/21 Stock Sorter Relationship Specialty Start Date End Date Tyrel Sy MD [address] [place], [place] [id number] PCP - General 01/02/09 Ye Ceballos V [address] [place] [phone] Referring Internal Medicine 02/07/21 Stock Sorter Relationship Specialty Start Date End Date Tyrel Sy MD [address] [place], [place] [id number] PCP - General 01/02/09 Ye Ceballos V [address] [place] [phone] Referring Internal Medicine 02/07/21 Stock Sorter Relationship Specialty Start Date End Date Tyrel Sy MD [address] [place], [place] [id number] PCP - General 01/02/09 Ye Ceballos V [address] [place] [phone] Referring Internal Medicine 02/07/21 Stock Sorter Relationship Specialty Start Date End Date Tyrel Sy MD [address] [place], [place] [address] PCP - General 01/02/09 Ye Ceballos V [address] [place] [phone] Referring Internal Medicine 02/07/21 Stock Sorter Relationship Specialty Start Date End Date Tyrel Sy MD [address] [place], [place] [address] PCP - General 01/02/09 Ye Ceballos V [address] [place] [phone] Referring Internal Medicine 02/07/21 FOR RECORDS PERTAINING TO PATIENTS WHO ARE OR HAVE BEEN ENROLLED IN A CHEMICAL DEPENDENCY/SUBSTANCEABUSE PROGRAM, SOME INFORMATION MAY BE OMITTED. This clinical summary was aggregated from multiple sources. Caution should be exercised in using it in the provision of clinical care. This summary normalizes information from multiple sources, and as a consequence, information in this document may materially change the coding, format and clinical context of patient data. In addition, data may be omitted in some cases. CLINICAL DECISIONS SHOULD BE BASED ON THE PRIMARY CLINICAL RECORDS. [facility] [employer] [facility]. provides no warranty or guarantee of the accuracy or completeness of information in this document.
== END | disposition home or self-care (01) ==
LOC: MFPLAB 15:27
PROVIDERS: Family Medicine; PCP Family Medicine; Visit Provider Family Medicine
DX: R53.83 Other fatigue (principal); D64.9 Anemia, unspecified
CPT/HCPCS: 36415; 80053; 82306; 84443; 85025

== ENCOUNTER → 2024-02-15 | Outpatient (CLI) | payer MEDICARE, MEDICAID, SELFPAY ==
--- NOTE | 2024-02-15 07:04 | CT_ITS ---
STUDY: CT BRAIN WITHOUT CONTRAST REASON FOR EXAM: Female, 68 years old. HEADACHE history of lung cancer. History of prior right carotid endarterectomy. RADIATION DOSAGE (If Supplied By Facility): CTDIvol = ( 44.99 ) mGy, DLP = ( 812.98 ) mGycm TECHNIQUE: Transaxial CT imaging of the brain was performed without administration of intravenous contrast material. Individualized dose optimization techniques were used for this CT. COMPARISON: Comparison is made with prior study dated December 05, 2019. FINDINGS: Normal soft tissue structures. There is hyperostosis frontalis internus. There is mild cerebral atrophy with widening of the extra-axial spaces and ventricular dilatation. There are areas of decreased attenuation within the white matter tracts of the supratentorial brain, consistent with microvascular disease changes. There are small punctate calcifications of the basal ganglia which are seen in the aging brain as a normal variant. Normal brainstem. Normal cerebellum. There is no intracranial hemorrhage. There are no findings of an acute ischemic infarction. Atherosclerotic calcification of the cavernous portions of the internal carotid arteries bilaterally. Normal visualized paranasal sinuses. CT/Brain/Head without Contrast IMPRESSION: Normal unenhanced CT scan of the brain. Electronically Signed: Harry Yu MD at 8:45 EDT ,
== END | disposition home or self-care (01) ==
LOC: CT 07:02
PROVIDERS: PCP Family Medicine; Referring Provider Family Medicine; Visit Provider Family Medicine
DX: R53.83 Other fatigue (principal); R51.9 Headache, unspecified
CPT/HCPCS: 70450

== ENCOUNTER → 2024-04-12 | Outpatient (CLI) | payer MEDICARE, MEDICAID, SELFPAY ==
--- NOTE | 2024-04-12 08:09 | US_ITS ---
STUDY: ABDOMINAL ULTRASOUND - RIGHT UPPER QUADRANT; ELASTOGRAPHY REASON FOR VISIT: Female, 68 years old. Fatty infiltration of the liver. TECHNIQUE: Ultrasound evaluation of the right upper quadrant was performed with real-time and static steel-scale imaging. Point quantification shear wave elastography was performed ([employer]). TECHNICAL QUALITY: Adequate. COMPARISON: None. FINDINGS: Liver: The liver measures 16.9 cm. There is normal echogenicity of the liver. The bile ducts are within normal limits. There is hepatic color flow. The direction of portal flow is hepatopetal. There is no demonstrated mass lesion. Median liver stiffness measured 26.2 kPa. Gallbladder: The patient is status post cholecystectomy. Common Bile Duct (C.B.D.): The common bile duct measures 6 mm. Pancreas: There is normal echogenicity of the visualized pancreas. There is no demonstrated pancreatic mass or cyst. Right Kidney: Normal size of the right kidney. The right kidney measures 11.5 cm x 5.2 cm x 4.4 cm. Normal renal cortex. The right cortex measures 1.0 cm. There is no demonstrated renal mass or cyst. There is no right hydronephrosis. US/ABD Limited w/ Elastography IMPRESSION: 1. Liver stiffness measures 26.2 kPa compatible with F3-F4 (Moderate to severe liver fibrosis) Metavir score. Electronically Signed: Harry Yu MD at 15:02 EDT ,
== END | disposition home or self-care (01) ==
LOC: US 08:08
PROVIDERS: PCP Family Medicine; Referring Provider Internal Medicine Medical Oncology; Visit Provider Internal Medicine Medical Oncology
DX: K76.0 Fatty (change of) liver, not elsewhere classified (principal)
CPT/HCPCS: 76705; 76981

== ENCOUNTER 2024-06-22 11:58 | Emergency (ER) | payer MEDICARE, MEDICAID, SELFPAY ==
[2024-06-22 11:58] VITALS: BP 147/66; PULSE 86; RESP 16; TEMP 36.7; O2SAT 95; BMI 21.7
--- NOTE | 2024-06-22 12:17 | ED.RN ---
pt c/o increased fatigue and sob with exertion. also c/o generalized pain.
--- NOTE | 2024-06-22 12:29 | EX.ED.DYSGE1 ---
HPI <JYOTSNA Saravia - Last Filed: 06/22/24 14:37> History of Present Illness Chief Complaint: GI Bleed Narrative Narrative: Patient is a 68-year-old female with history of CAD, multiple stents, on aspirin, history of liver fibrosis, who used to smoke 1 pack/day now uses a vape and medical marijuana presenting to the emergency department with complaints of vomiting blood. Patient states the last 2 days has been having some vomiting, she states it is coffee-ground, however it did turn to bright red blood today. Patient states she does have history of anemia. She does see Dr. Corcoran and had her last scope in 2020. Patient also has history of lung cancer. She states she feels overall weak, she does have chronic pain that is been ongoing for 4 years. She states she has not felt well in 4 years. PFS <JYOTSNA Saravia - Last Filed: 06/22/24 14:37> [facility]LY [facility] Medical History COPD (chronic obstructive pulmonary disease) Brain fog Migraines Anemia Easy bruising Shortness of breath on exertion Chronic cough Leg cramps History of edema Cardiology follow-up encounter History of stress test Chest pain Gastroparesis Wears glasses Wears dentures Marijuana use Diabetes Arthritis High cholesterol Former smoker History of echocardiogram GERD (gastroesophageal reflux disease) Diarrhea Carcinoma, lung Old inferior wall myocardial infarction (03/03/07) Essential (primary) hypertension Depression Atherosclerotic heart disease of [place] coronary artery without angina pectoris Carotid stenosis, right Iron deficiency RLS (restless legs syndrome) Tubular adenoma of colon History of colonic polyps Hyperlipemia Ventral hernia Nausea Reflux esophagitis Osteoarthritis Home Medications ?Medication ?Instructions ?Recorded ?Last Taken ?Type aspirin 81 mg chewable tablet 81 mg PO DAILY@0800 heart health 01/25/16 05/01/23 History glimepiride 4 mg tablet 4 mg PO DAILY diabetes 07/24/20 Unknown History nitroglycerin 0.4 mg sublingual 0.4 mg sublingual Q5-15M PRN chest 11/26/20 Unknown Rx tablet pain #25 tabs escitalopram oxalate 20 mg tablet 20 mg PO DAILY 11/06/21 Unknown History atorvastatin 80 mg tablet 80 mg PO QDAY cholesterol #90 tabs 05/07/22 Unknown Rx isosorbide dinitrate 30 mg tablet 30 mg PO DAILY 08/12/22 05/05/23 History metoprolol succinate 50 mg 50 mg PO DAILY #90 tabs 01/21/23 05/05/23 Rx tablet,extended release 24 hr ranolazine 1,000 mg 1,000 mg PO DAILY #180 tabs 01/17/24 Unknown Rx tablet,extended release,12 hr famotidine 20 mg tablet 20 mg PO BID #60 tabs 04/11/24 Unknown Rx ezetimibe 10 mg tablet (Zetia) 10 mg PO DAILY #90 tabs 04/12/24 Unknown Rx loperamide 2 mg tablet 2 mg PO Q6H PRN loose stool #30 05/12/24 Unknown Rx (Anti-Diarrheal (loperamide)) tabs sucralfate 1 gram tablet (Carafate) 1 g PO BID #14 tabs 06/22/24 Unknown Rx Allergy/AdvReac Type Severity Reaction Status Date / Time codeine Allergy Hives Verified 06/22/24 12:00 fluticasone propionate (From Allergy Hives Verified 06/22/24 12:00 Flonase) mometasone furoate (From Allergy Hives Verified 06/22/24 12:00 Nasonex) Penicillins Allergy Hives Verified 06/22/24 12:00 sitagliptin phosphate (From Allergy Hives Verified 06/22/24 12:00 Januvia) Sulfa (Sulfonamide Allergy Hives Verified 06/22/24 12:00 Antibiotics) tramadol Allergy Hives Verified 06/22/24 12:00 venlafaxine HCl (From Allergy Hives Verified 06/22/24 12:00 Effexor) cortisone AdvReac Other Verified 06/22/24 12:00 desvenlafaxine succinate AdvReac Other Verified 06/22/24 12:00 (From Pristiq) fluoxetine HCl (From Prozac) AdvReac Vomiting Verified 06/22/24 12:00 gabapentin (From Neurontin) AdvReac Vomiting Verified 06/22/24 12:00 hydrochlorothiazide AdvReac Other Verified 06/22/24 12:00 hydrocodone bitartrate (From AdvReac Vomiting Verified 06/22/24 12:00 Vicodin) lisinopril AdvReac Other Verified 05/25/24 13:27 losartan (Losartan) AdvReac Other Verified 06/22/24 12:00 oxycodone HCl (From AdvReac Other Verified 06/22/24 12:00 OxyContin) pioglitazone HCl (From Actos) AdvReac Vomiting Verified 06/22/24 12:00 propoxyphene napsylate (From AdvReac Vomiting Verified 06/22/24 12:00 Darvocet-N) tizanidine AdvReac Other Verified 06/22/24 12:00 Family History Father Cancer bone Grandfather Cancer Grandmother Cancer Other Heart disease Surgical History Hx of colonoscopy History of lung surgery (03/2021) History of cardiac catheterization H/O coronary artery bypass surgery (04/03/07) History of coronary artery stent placement (01/27/16) Abnormal colonoscopy (01/10/18) History of cholecystectomy History of rotator cuff surgery History of hysterectomy History of inguinal hernia repair, bilateral History of bilateral carpal tunnel release History of appendectomy History of arthroscopy of right knee Status post laparoscopic cholecystectomy History of laparoscopy History of esophagogastroduodenoscopy (EGD) Hx of colonoscopy Social History Smoking Status: Current every day smoker tobacco type: e-cigarettes how long ago did patient quit smokin years ago alcohol intake: never substance use type: marijuana caffeine: Yes Type: coffee Number of servings: 3 ROS <JYOTSNA Saravia - Last Filed: 06/22/24 14:37> ROS ED ROS Narrative Constitutional: Negative for fever, chills, weight loss. Positive for weakness Eyes: Negative for vision loss, vision change, double vision ENT: Negative for any sore throat, ear pain, congestion Cardiovascular: Negative for any chest pain, tightness, palpitations Respiratory: Negative for any cough, sputum production, hemoptysis, dyspnea, dyspnea on exertion, orthopnea Gastrointestinal: Negative for any diarrhea, constipation, blood in stool. Negative for specific abdominal pain, nausea, vomiting, blood in vomit which she describes as coffee grounds then bright red blood : Negative for any urinary frequency, dysuria, retention, blood in urine Muscle skeletal: Negative for any neck pain, back pain Neurological: Negative for any headache, syncope, dizziness Skin: Negative for any rashes, itching, abrasions, lacerations Psychiatric: Negative for any depression, anxiety, stress, suicidal ideation, homicidal ideation Hematologic: Negative for any excessive bruising, easy bleeding EXAM <Gamaliel GravesJYOTSNA bermudez - Last Filed: 06/22/24 14:37> Physical Exam Narrative Exam Narrative: Vital signs reviewed. HEET: Head normocephalic atraumatic, TMs clear bilaterally. Posterior pharynx is clear, moist mucous membranes. Nares clear bilaterally. No blood in the oral airway. Neck: Supple with no lymphadenopathy or tenderness. No signs of meningismus. Cardiac: Regular rate and rhythm no murmurs gallops or rubs, equal peripheral pulses bilaterally. Respiratory: Lungs clear to auscultation bilaterally. No chest tenderness. Abdomen: Soft, nontender, nondistended. No abdominal bruit or pulsatile masses. No hepatosplenomegaly Extremities: No peripheral edema, no signs of gross trauma or deformity. Active full range of motion of all extremities. Patient has gross clubbing to all fingers Neuro: Cranial nerves II through XII intact, no focal neurological deficits. Skin: Clean dry and intact with no rash, purpura, petechiae, vesicles or pustules. Backs/flank: No CVA tenderness, no midline spinal tenderness, no deformity. Psych: Normal mood and affect. No SI, HI or acute psychosis. Const Vital Signs: 06/22/24 11:58 06/22/24 12:58 06/22/24 14:00 Temperature 98.1 F Temperature Source Temporal Pulse Rate 86 80 80 Respiratory Rate 16 16 16 Blood Pressure 147/66 H 149/62 H 142/100 H Blood Pressure Mean 93 91 114 Pulse Ox 95 96 98 Oxygen Delivery Method Room Air Room Air Room Air 06/22/24 14:46 Temperature 97.6 F L Temperature Source Pulse Rate 83 Respiratory Rate 15 Blood Pressure 163/73 H Blood Pressure Mean 103 Pulse Ox 98 Oxygen Delivery Method <Dr. Steven Pringle, - Last Filed: 06/22/24 15:03> Physical Exam Const Vital Signs: 06/22/24 11:58 06/22/24 12:58 06/22/24 14:00 Temperature 98.1 F Temperature Source Temporal Pulse Rate 86 80 80 Respiratory Rate 16 16 16 Blood Pressure 147/66 H 149/62 H 142/100 H Blood Pressure Mean 93 91 114 Pulse Ox 95 96 98 Oxygen Delivery Method Room Air Room Air Room Air 06/22/24 14:46 Temperature 97.6 F L Temperature Source Pulse Rate 83 Respiratory Rate 15 Blood Pressure 163/73 H Blood Pressure Mean 103 Pulse Ox 98 Oxygen Delivery Method MDM <Gamaliel Smith TRAFFIC REPORTER-C - Last Filed: 06/22/24 14:37> [facility] Lab Data Labs: Laboratory Results - last 24 hr 06/22/24 12:35 WBC 8.9 RBC 4.43 Hgb 13.0 Hct 40.0 MCV 90.3 MCH 29.3 MCHC 32.5 RDW Std Deviation 53.5 H RDW Coeff of Evaristo 16.0 H Plt Count 222 MPV 8.8 Immature Gran % (Auto) 0.300 Neut % (Auto) 78.0 H Lymph % (Auto) 15.4 L [place] % (Auto) 5.0 Eos % (Auto) 0.4 Baso % (Auto) 0.9 Absolute Neuts (auto) 7.0 Absolute Lymphs (auto) 1.38 Nucleated RBC % 0 PT 13.9 INR 1.1 Sodium 134 L Potassium 4.1 Chloride 102 Carbon Dioxide 25.0 Anion Gap 7 BUN 14 Creatinine 1.01 Estim Creat Clear Calc 46.67 Est GFR (MDRD) Af Amer 70 Est GFR (MDRD) Non-Af 58 L BUN/Creatinine Ratio 13.9 Glucose 230 H Lactic Acid 2.3 H* Calcium 8.9 Total Bilirubin 1.60 H Direct Bilirubin 0.40 H AST 13 L ALT 15 Alkaline Phosphatase 124 H Total Protein 7.4 Albumin 3.5 Globulin 3.9 Lipase 51 Radiography Diagnostic Testing: Clinical Impression(s) from Imaging Studies Chest X-Ray 06/22/24 12:55 IMPRESSION: Suspect right upper lobe pneumonia. CT may be useful. Electronically Signed: Ag Burr MD at 13:06 EDT , Treatment and Re-Evaluation :: Differential diagnosis includes however is not limited to: Esophageal varices, gastritis, GI viral illness, acute anemia, thrombocytopenia Patient appears to be in no respiratory distress vital signs are stable. Presenting to the emergency department with complaints of nausea, blood in vomit. Patient will receive a full workup, including CBC, BMP, liver panel, PT/INR, 1 L normal saline Zofran as well as IV Protonix. Patient on my examination no vomiting. No abdominal pain. She denies any history of alcohol abuse. Patient does see Dr. Corcoran, EGD completed in 2020 was negative for any acute process. Patient will be reevaluated. Patient CBC was unremarkable, hemoglobin is 13 which is stable. Patient's chemistries were unremarkable, creatinine is 1.0, BUN 14, lactic acid was slight elevated 2.3, total bilirubin 1.6, lipase was negative. Alkaline phosphatase only slightly elevated. Patient's stool occult was negative. On reevaluation, the patient was feeling much better. Patient has not had any vomiting. Speaking with the patient, patient has been retching over the last 2 days, and the blood was scant. I concern would be for Erica-Ross tear. Patient reevaluation blood to go home. I do believe this is appropriate. Patient will follow-up closely with Dr. Corcoran. Instructed return for any worsening bleeding, blood in stool, dark tarry stools. Patient will be placed on Carafate for 1 week. Instructed return for any worsening symptoms. <Dr. Steven Pringle, DO - Last Filed: 06/22/24 15:03> [facility] History & Record Review Discussion w/independent historian: Patient Lab Data Attestation: I reviewed the patient's lab results. Labs: Laboratory Results - last 24 hr 06/22/24 12:35 WBC 8.9 RBC 4.43 Hgb 13.0 Hct 40.0 MCV 90.3 MCH 29.3 MCHC 32.5 RDW Std Deviation 53.5 H RDW Coeff of Evaristo 16.0 H Plt Count 222 MPV 8.8 Immature Gran % (Auto) 0.300 Neut % (Auto) 78.0 H Lymph % (Auto) 15.4 L [place] % (Auto) 5.0 Eos % (Auto) 0.4 Baso % (Auto) 0.9 Absolute Neuts (auto) 7.0 Absolute Lymphs (auto) 1.38 Nucleated RBC % 0 PT 13.9 INR 1.1 Sodium 134 L Potassium 4.1 Chloride 102 Carbon Dioxide 25.0 Anion Gap 7 BUN 14 Creatinine 1.01 Estim Creat Clear Calc 46.67 Est GFR (MDRD) Af Amer 70 Est GFR (MDRD) Non-Af 58 L BUN/Creatinine Ratio 13.9 Glucose 230 H Lactic Acid 2.3 H* Calcium 8.9 Total Bilirubin 1.60 H Direct Bilirubin 0.40 H AST 13 L ALT 15 Alkaline Phosphatase 124 H Total Protein 7.4 Albumin 3.5 Globulin 3.9 Lipase 51 Radiography Diagnostic Testing: Clinical Impression(s) from Imaging Studies Chest X-Ray 06/22/24 12:55 IMPRESSION: Suspect right upper lobe pneumonia. CT may be useful. Electronically Signed: Ag Burr MD at 13:06 EDT , Treatment and Re-Evaluation :: Differential diagnosis includes however is not limited to: Esophageal varices, gastritis, GI viral illness, acute anemia, thrombocytopenia Patient appears to be in no respiratory distress vital signs are stable. Presenting to the emergency department with complaints of nausea, blood in vomit. Patient will receive a full workup, including CBC, BMP, liver panel, PT/INR, 1 L normal saline Zofran as well as IV Protonix. Patient on my examination no vomiting. No abdominal pain. She denies any history of alcohol abuse. Patient does see Dr. Corcoran, EGD completed in 2020 was negative for any acute process. Patient will be reevaluated. Patient CBC was unremarkable, hemoglobin is 13 which is stable. Patient's chemistries were unremarkable, creatinine is 1.0, BUN 14, lactic acid was slight elevated 2.3, total bilirubin 1.6, lipase was negative. Alkaline phosphatase only slightly elevated. Patient's stool occult was negative. On reevaluation, the patient was feeling much better. Patient has not had any vomiting. Speaking with the patient, patient has been retching over the last 2 days, and the blood was scant. I concern would be for Erica-Ross tear. Patient reevaluation blood to go home. I do believe this is appropriate. Patient will follow-up closely with Dr. Corcoran. Instructed return for any worsening bleeding, blood in stool, dark tarry stools. Patient will be placed on Carafate for 1 week. Instructed return for any worsening symptoms. I have personally performed a face to face assessment of the patient and have reviewed the ANI Note. I performed a substantive portion of the visit including all aspects of the following. My martinez findings include: History is 68-year-old female history of liver fibrosis, possible ulcerative colitis who notes that yesterday and today she was doing some retching. She notes eventually having emesis of some coffee-ground looking material. No black or bloody stool. She had normal bowel movement yesterday. Patient takes famotidine. Protonix apparently diarrhea. She states Dr. Corcoran'shaheed had EGD and colonoscopy. She denies being on anticoagulants does take aspirin. She notes no history of portal hypertension or gastric varices or gastric ulcer. Exam is well-appearing female sitting comfortably on the bed. No acute distress. The abdomen is benign. Medical Decison Making patient is guaiac negative. Hemoglobin is normal. Patient received fluids Zofran and Protonix. I question whether or not this was more of a Erica-Ross tear than gastric ulcer/gastritis. We can add in some Carafate and write for some Zofran. She continues to have symptoms her stool turns black tarry or bloody she should return to emergency. Exact etiology of the elevated lactic acid unknown at this time but she does not appear to be in any shock state. Discharge Plan Triage Chief Complaint: GI Bleed ED Midlevel Provider: Gamaliel Smith ED Provider: Steven Pringle Dx/Rx/DC Orders Clinical Impression: Nausea & vomiting, Erica-Ross tear Instructions: Erica-Ross Tear, ED Vomiting (Adult) Prescriptions: New sucralfate [Carafate] 1 gram tablet 1 g PO BID Qty: 14 0RF No Action nitroglycerin 0.4 mg tablet, sublingual 0.4 mg SUBLINGUAL Q5-15M PRN (Reason: chest pain) Qty: 25 3RF Rx Instructions: do not exceed 3 doses per episode escitalopram oxalate 20 mg tablet 20 mg PO DAILY Patient Comments: TAKE 1 TABLET EVERY MORNING atorvastatin 80 mg tablet 80 mg PO QDAY Qty: 90 3RF isosorbide dinitrate 30 mg tablet 30 mg PO DAILY Rx Instructions: allow nitrate-free interval of 12-14 hrs per 24-hr period metoprolol succinate 50 mg tablet extended release 24 hr 50 mg PO DAILY Qty: 90 3RF loperamide [Anti-Diarrheal (loperamide)] 2 mg tablet 2 mg PO Q6H PRN (Reason: loose stool) Qty: 30 0RF aspirin 81 MG tablet,chewable 81 mg PO DAILY@0800 glimepiride 4 mg tablet 4 mg PO DAILY ranolazine 1,000 mg tablet extended release 12 hr 1,000 mg PO DAILY Qty: 180 3RF famotidine 20 mg tablet 20 mg PO BID Qty: 60 2RF ezetimibe [Zetia] 10 mg tablet 10 mg PO DAILY Qty: 90 3RF Primary Care Provider: Esdras Sy Referrals: Esdras Sy MD [Primary Care Provider] - Friend,DO Charlie [Med Staff - Active Staff] - Activity Restrictions/Additional Instructions: Use the Carafate twice a day. Return for any worsening blood in vomit., blood in stool. Print Language: Serbian Disposition Disposition: Home, Self Care Discharge Date/Time: 06/22/24 14:47
[2024-06-22] MEDS: Ondansetron 4 MG/2 ML Vial IV (12:41)
[2024-06-22] MEDS: 0.9% Normal Saline (1000mL) 1,000 ML 999 ML IV (12:41)
[2024-06-22 12:42] LABS: Absolute Lymphocyte Count 1.38 X10^3/uL (0.83-4.51); Basophil# 0.08 X10^3/uL; Basophil% 0.9 % (0-1); Eosinophil# 0.04 X10^3/uL; Eosinophils% 0.4 % (0-5); Lymphocyte # 1.38 X10^3/ul (0.83-4.51); Lymphocyte % 15.4 % (19-41); Mean Corp Hgb Conc 32.5 g/dL (32-36); Mean Corpuscular Hgb 29.3 pg (27.0-32.0); Mean Corpuscular Volume 90.3 fL (81-99); Mean Platelet Vol. 8.8 fl (6.2-12.0); Monocyte# 0.45 X10^3/uL; NRBC Flagged by Analyzer 0 % (0-5); Neutrophil # 6.96 X10^3/uL (2.7-7.7); Platelet Count 222 K/mm3 (150-450); RBC Distribution Width SD 53.5 fl (35.1-43.9); Red Blood Count 4.43 M/mm3 (4.2-5.4); White Blood Count 8.9 K/mm3 (4.4-11.0)
[2024-06-22] MEDS: Pantoprazole Sodium 80 MG in 0.9% Normal Saline (50mL Bag) 15 ML 420 MG IV BOLUS (12:50)
--- NOTE | 2024-06-22 12:55 | RAD_ITS ---
STUDY: X-RAY CHEST REASON FOR EXAM: Female, 68 years old. cough TECHNIQUE: PA and lateral views of the chest. COMPARISON: 02/05/2023 FINDINGS: Status post median sternotomy. Faint alveolar opacity in the upper right lung worrisome for pneumonia. There is no demonstrated pleural abnormality. Normal size heart. Normal mediastinum and pili. Normal visualized pulmonary arteries. Normal visualized aortic arch and descending thoracic aorta. Normal visualized thoracic spine. Normal visualized ribs, clavicles, and shoulders. There is no demonstrated abnormality of the visualized soft tissue structures of the upper abdomen. RAD/Chest PA and Lateral IMPRESSION: Suspect right upper lobe pneumonia. CT may be useful. Electronically Signed: Ag Burr MD at 13:06 EDT ,
[2024-06-22 12:58] VITALS: BP 149/62; PULSE 80; RESP 16; O2SAT 96
[2024-06-22 12:59] LABS: AST(SGOT) 13 U/L (15-37); Alanine Aminotransfer ALT/SGPT 15 U/L (13-56); Albumin, Serum 3.5 g/dL (3.2-5.0); Alkaline Phosphatase 124 U/L (45-117); Anion Gap 7 (5-15); BUN 14 mg/dL (7-18); BUN/Creat Ratio 13.9 RATIO (10-20); Calcium,Total 8.9 mg/dL (8.5-10.1); Chloride 102 mmol/L (98-107); Creatinine, Serum 1.01 mg/dL (0.55-1.02); EST Glomerular Filtration Rate 58 mL/min (>60); Est Glom Filt Rate - Afr Amer 70 mL/min (>60); Estimated Creatinine Clearance 46.67 ml/min; Globulin 3.9 g/dL (2.2-4.2); Glucose 230 mg/dL (74-106); Lipase 51 U/L (13-75); Potassium 4.1 mmol/L (3.5-5.1); Protein, Total 7.4 g/dL (6.4-8.2); Sodium Level 134 mmol/L (136-145)
[2024-06-22 13:21] LABS: International Normalized Ratio 1.1; Prothrombin Time (Protime)PT. 13.9 SECONDS (11.7-14.9)
[2024-06-22 13:38] LABS: Lactic Acid 2.3 mmol/L (0.4-1.9)
[2024-06-22 14:00] VITALS: BP 142/100; PULSE 80; RESP 16; O2SAT 98
[2024-06-22 14:46] VITALS: BP 163/73; PULSE 83; RESP 15; TEMP 36.4; O2SAT 98
[2024-06-22 16:39] LABS: Reflex Lactate? Y
== END 2024-06-22 14:47 | disposition home or self-care (01) ==
PROVIDERS: Nurse Practitioner; Emergency Provider Emergency Medicine; PCP Family Medicine; Visit Provider Emergency Medicine
DX: K22.6 Gastro-esophageal laceration-hemorrhage syndrome (principal); J44.9 Chronic obstructive pulmonary disease, unspecified; E11.43 Type 2 diabetes mellitus with diabetic autonomic (poly)neuropathy; K21.00 Gastro-esophageal reflux disease with esophagitis, without bleeding; R11.2 Nausea with vomiting, unspecified; I10 Essential (primary) hypertension; I25.10 Atherosclerotic heart disease of native coronary artery without angina pectoris; E78.00 Pure hypercholesterolemia, unspecified; K92.2 Gastrointestinal hemorrhage, unspecified; Z95.5 Presence of coronary angioplasty implant and graft; Z79.82 Long term (current) use of aspirin; K31.84 Gastroparesis; F17.290 Nicotine dependence, other tobacco product, uncomplicated; Z79.899 Other long term (current) drug therapy
CPT/HCPCS: 71046; 80048; 80076; 82274; 83605; 83690; 85025; 85610; 96361; 96374; 96375; 99283; J7030; A4216; J2405; J3490

== ENCOUNTER 2024-11-06 12:14 | Inpatient (IN) | payer MEDICARE, MEDICAID, SELFPAY ==
[2024-11-06] VITALS (10 sets, daily range): BP systolic 114–149; BP diastolic 48–70; PULSE 68–84; RESP 13–24; TEMP 36.5–36.8; O2SAT 95–98; BMI 21.1; BMI 20.9
--- NOTE | 2024-11-06 12:50 | EKG12_ITS ---
Test Reason : CP Blood Pressure : */* mmHG Vent. Rate : 75 BPM Atrial Rate : 75 BPM P-R Int : 124 ms QRS Dur : 144 ms QT Int : 454 ms P-R-T Axes : 81 75 94 degrees QTcB Int : 506 ms Normal sinus rhythm Left bundle branch block Abnormal ECG Confirmed by GRECIA LAMBERT MD ([id number]), science editor DARWIN WILLOUGHBY ([id number]) on 11/07/2024 8:17:05 AM Referred By: Confirmed By: GRECIA LAMBERT MD
--- NOTE | 2024-11-06 12:52 | EDS_ITS ---
HPI History of Present Illness Chief Complaint: Chest Pain Informant: patient Narrative Narrative: 69-year-old female with chest pain that has been there for 3 days now constantly. She states it hurts to swallow, upper mid chest, but the pain is there less severe when she is not swallowing, and radiates off to the left toward her shoulder. Denies dyspnea. Chronic cough not necessarily different than usual. No hemoptysis. She states she is able to swallow without vomiting, but is significantly painful to do so. She had a history of a lung nodule that was growing and ended up being cancerous, she had surgery for it on her right lower lung, states she did not have any radiation treatments. [facility] Medical History (Updated 11/06/24 @ 15:[address] Eduar Smith MD) Anxiety Myocardial infarct Coronary artery disease DVT (deep venous thrombosis) COPD (chronic obstructive pulmonary disease) Brain fog Migraines Anemia Easy bruising Shortness of breath on exertion Chronic cough Leg cramps History of edema Cardiology follow-up encounter History of stress test Chest pain Gastroparesis Wears glasses Wears dentures Marijuana use Diabetes Arthritis High cholesterol Former smoker History of echocardiogram GERD (gastroesophageal reflux disease) Diarrhea Carcinoma, lung Old inferior wall myocardial infarction (03/03/07) Essential (primary) hypertension Depression Atherosclerotic heart disease of [place] coronary artery without angina pectoris Carotid stenosis, right Iron deficiency RLS (restless legs syndrome) Tubular adenoma of colon History of colonic polyps Hyperlipemia Ventral hernia Nausea Reflux esophagitis Osteoarthritis Home Medications ?Medication ?Instructions ?Recorded ?Last Taken ?Type aspirin 81 mg chewable tablet 81 mg PO DAILY@0800 heart [facility] 01/25/16 05/01/23 History nitroglycerin 0.4 mg sublingual 0.4 mg sublingual Q5-15M PRN chest 11/26/20 Unknown Rx tablet pain #25 tabs escitalopram oxalate 20 mg tablet 20 mg PO DAILY 11/06/21 Unknown History atorvastatin 80 mg tablet 80 mg PO QDAY cholesterol #90 tabs 05/07/22 11/06/24 Rx isosorbide dinitrate 30 mg tablet 30 mg PO DAILY 08/12/22 05/05/23 History metoprolol succinate 50 mg 50 mg PO DAILY #90 tabs 01/21/23 05/05/23 Rx tablet,extended release 24 hr ranolazine 1,000 mg 1,000 mg PO DAILY #180 tabs 01/17/24 Unknown Rx tablet,extended release,12 hr sucralfate 1 gram tablet (Carafate) 1 g PO BID #14 tabs 06/22/24 Unknown Rx famotidine 20 mg tablet 20 mg PO BID #120 TABLETS 10/03/24 Unknown Rx ezetimibe 10 mg tablet (Zetia) 10 mg PO DAILY #90 tabs 11/02/24 Unknown Rx Allergy/AdvReac Type Severity Reaction Status Date / Time codeine Allergy Hives Verified 11/06/24 12:17 fluticasone propionate (From Allergy Hives Verified 11/06/24 12:17 Flonase) mometasone furoate (From Allergy Hives Verified 11/06/24 12:17 Nasonex) Penicillins Allergy Hives Verified 11/06/24 12:17 sitagliptin phosphate (From Allergy Hives Verified 11/06/24 12:17 Januvia) Sulfa (Sulfonamide Allergy Hives Verified 11/06/24 12:17 Antibiotics) tramadol Allergy Hives Verified 11/06/24 12:17 venlafaxine HCl (From Allergy Hives Verified 11/06/24 12:17 Effexor) cortisone AdvReac Other Verified 11/06/24 12:17 desvenlafaxine succinate AdvReac Other Verified 11/06/24 12:17 (From Pristiq) fluoxetine HCl (From Prozac) AdvReac Vomiting Verified 11/06/24 12:17 gabapentin (From Neurontin) AdvReac Vomiting Verified 11/06/24 12:17 hydrochlorothiazide AdvReac Other Verified 11/06/24 12:17 hydrocodone bitartrate (From AdvReac Vomiting Verified 11/06/24 12:17 Vicodin) lisinopril AdvReac Other Verified 11/06/24 12:17 losartan (Losartan) AdvReac Other Verified 11/06/24 12:17 oxycodone HCl (From AdvReac Other Verified 11/06/24 12:17 OxyContin) pioglitazone HCl (From Actos) AdvReac Vomiting Verified 11/06/24 12:17 propoxyphene napsylate (From AdvReac Vomiting Verified 11/06/24 12:17 Darvocet-N) tizanidine AdvReac Other Verified 11/06/24 12:17 Family History Father Cancer bone Grandfather Cancer Grandmother Cancer Other Heart disease Surgical History Hx of colonoscopy History of lung surgery (03/2021) History of cardiac catheterization H/O coronary artery bypass surgery (04/03/07) History of coronary artery stent placement (01/27/16) Abnormal colonoscopy (01/10/18) History of cholecystectomy History of rotator cuff surgery History of hysterectomy History of inguinal hernia repair, bilateral History of bilateral carpal tunnel release History of appendectomy History of arthroscopy of right knee Status post laparoscopic cholecystectomy History of laparoscopy History of esophagogastroduodenoscopy (EGD) Hx of colonoscopy Social History Smoking Status: Current every day smoker tobacco type: cigarettes how long ago did patient quit smokin years ago alcohol intake: never substance use type: marijuana caffeine: Yes Type: coffee Number of servings: 3 ROS ROS ED Constitutional Constitutional ED: Denies chills or fever(s) Eyes Eyes: Denies change in vision or diplopia ENT ENT ED: Denies rhinorrhea or sore throat Cardiovascular Cardiovascular: Reports as per HPI and chest pain; Denies palpitations Respiratory/Chest Respiratory/Chest: Reports cough and sputum; Denies dyspnea or hemoptysis Gastrointestinal Gastrointestinal: Denies abdominal pain, diarrhea, nausea or vomiting Genitourinary Genitourinary ED: Denies dysuria or hematuria Musculoskeletal Musculoskeletal: Denies back pain or neck pain Integumentary Denies abscess or rash Neurologic Neurologic: Denies headache(s), paresthesias or weakness Psychiatric Psychiatric: Denies anxiety or suicidal thoughts EXAM Physical Exam Const Vital Signs: 11/06/24 12:15 11/06/24 13:06 11/06/24 13:15 Temperature 97.7 F L Temperature Source Oral Pulse Rate 84 72 Respiratory Rate 16 24 H Blood Pressure 114/61 138/54 H Blood Pressure Mean 78 79 Pulse Ox 95 Oxygen Delivery Method Room Air Room Air 11/06/24 14:00 11/06/24 15:00 11/06/24 16:00 Temperature Temperature Source Pulse Rate 72 70 71 Respiratory Rate 23 H 21 H 23 H Blood Pressure 123/57 H 146/60 H 149/48 H Blood Pressure Mean 77 85 77 Pulse Ox Oxygen Delivery Method 11/06/24 16:19 Temperature 97.9 F Temperature Source Pulse Rate 68 Respiratory Rate 14 Blood Pressure 145/60 H Blood Pressure Mean 88 Pulse Ox 96 Oxygen Delivery Method Positive well nourished and well developed General Appearance ED: well developed and NAD HEENT Reports moist mucous membranes normocephalic and atraumatic Eyes PERRL and EOMs intact bilaterally Neck full ROM and supple Chest Wall inspection of chest normal and palpation of chest normal Chest Narrative: No dysphonia. Appears to be in pain when she swallows, holding her chest. Resp normal respiratory effort and clear to auscultation bilaterally Cardio regular rate, regular rhythm and no murmurs GI non-tender and non-distended Auscultation: normoactive bowel sounds Palpation: soft Back/Spine no CVA tenderness General Back: other FROM Extremity normal to inspection General Extremety ED: Negative for edema, pulses abnormal or tenderness General Extremity: Negative for edema or pulses abnormal Neuro oriented x3, CN's II-XII intact bilaterally and no sensory deficits noted Sensorium / Orientation: awake and alert Motor Exam: strength 5/5 throughout Psych mental status grossly normal Skin no rashes or lesions noted and no wounds Heart Score History: Slightly/Non-Suspicious ECG: Nonspecific Repolarization (New LBBB) Age: >/= 65 years Score: 3 MDM MDM MDM Narrative Medical decision making narrative: Patient clearly has esophageal discomfort, which is most likely intraluminal in etiology. She is passing liquids but having significant difficulty with solids. However, her EKG shows a new LBBB. Started with a 1 view chest x-ray on my interpretation it shows no acute abnormality, but considering the differential of heart and pulmonary and other lung etiologies in the left chest that she has discomfort when she is not swallowing, D-dimer was obtained that is elevated. Therefore she was sent for CT angiography of the chest to rule out pulmonary embolus, I reviewed the images has not resulted records, it is negative for PE or anything acute. There are coronary calcifications noted. I do not think those are related to the patient's discomfort given her negative troponin after having symptoms all weekend. I am concerned that she is not able to pass any solids. When asked about the details, she states it feels like he gets stuck, but it felt like that then for an hour or 2 and she never vomited and basically then just continued with fluids that she could get down. Discussed with Dr. Corcoran, he agrees reasonable to admit the patient for further evaluation given how quickly it came on. Lab Data Attestation: I reviewed the patient's lab results. Labs: Laboratory Results - last 24 hr 11/06/24 12:35 WBC 11.2 H RBC 5.01 Hgb 15.1 H Hct 45.2 MCV 90.2 MCH 30.1 MCHC 33.4 RDW Std Deviation 46.2 H RDW Coeff of Evaristo 13.8 Plt Count 227 MPV 9.6 Immature Gran % (Auto) 0.600 Neut % (Auto) 79.2 H Lymph % (Auto) 12.8 L Dent % (Auto) 6.2 Eos % (Auto) 0.5 Baso % (Auto) 0.7 Absolute Neuts (auto) 8.9 H Absolute Lymphs (auto) 1.44 Nucleated RBC % 0 D-Dimer Quant (PE/DVT) 1.77 H* Sodium 130 L Potassium 4.4 Chloride 96 L Carbon Dioxide 29.0 Anion Gap 5 BUN 12 Creatinine 1.04 H Estim Creat Clear Calc 44.71 Est GFR (MDRD) Af Amer 68 Est GFR (MDRD) Non-Af 56 L BUN/Creatinine Ratio 11.5 Glucose 294 H Calcium 10.0 Troponin I High Sens 10 Radiography Diagnostic Testing: Clinical Impression(s) from Imaging Studies Chest X-Ray 11/06/24 13:00 IMPRESSION: No acute abnormality is seen. Electronically Signed: Harry Yu MD at 13:20 EST , Chest CTA 11/06/24 14:27 IMPRESSION: No evidence of pulmonary embolism. Prior CABG. Coronary artery calcification. Electronically Signed: Harry Yu MD at 14:52 EST , Rhythm Strip Rhythm Strip: Sinus Rhythm Rate: 75 Ectopy: None EKG Initial EKG: Attestation: I personally reviewed and interpreted this EKG as follows: Interpretation: Sinus Rhythm, No Acute Injury Pattern and LBBB Prior EKG tracings: available for review Prior: Changed Management Discussion w/another healthcare provider: Hospitalist and Certified Art Therapist (GI friend) Discharge Plan Dx/Rx/DC Orders Clinical Impression: Chest pain, Esophageal dysphagia, New onset left bundle branch block (LBBB) Disposition Disposition: Acute Care Hospital [facility]
--- NOTE | 2024-11-06 13:00 | RAD_ITS ---
STUDY: X-RAY CHEST REASON FOR EXAM: Female, 69 years old. Chest pain TECHNIQUE: Single AP portable view of the chest. COMPARISON: Comparison is made with prior study of June 22, 2024. FINDINGS: EKG electrodes are seen. Hyperinflation. Calcified granuloma in the left lower lobe. There is no demonstrated pleural abnormality. Sternal cerclage wires and vascular clips are present from a prior sternotomy and coronary artery bypass graft procedure (CABG). Normal mediastinum and pili. Normal visualized pulmonary arteries. There is atherosclerotic calcification of the aortic arch with tortuosity. There are diffuse degenerative changes of the visualized thoracic spine. Normal visualized ribs, clavicles, and shoulders. There is no demonstrated abnormality of the visualized soft tissue structures of the upper abdomen. RAD/Chest 1 View (Portable) IMPRESSION: No acute abnormality is seen. Electronically Signed: Harry Yu MD at 13:20 EST ,
[2024-11-06] MEDS: Mag Hydrox/Al Hydrox/Simeth 30 ML UDC PO (13:04)
[2024-11-06] MEDS: Lidocaine 2% Viscous15 ML UDC 15 ML PO (13:04)
[2024-11-06 13:05] LABS: Absolute Lymphocyte Count 1.44 X10^3/uL (0.83-4.51); Absolute Neutrophil Count 8.9 X10^3/uL (2.0-7.7); Basophil# 0.08 X10^3/uL; Basophil% 0.7 % (0-1); Eosinophil# 0.06 X10^3/uL; Eosinophils% 0.5 % (0-5); Hematocrit 45.2 % (37-47); Hemoglobin 15.1 g/dL (12.0-15.0); Lymphocyte # 1.44 X10^3/ul (0.83-4.51); Lymphocyte % 12.8 % (19-41); Mean Corp Hgb Conc 33.4 g/dL (32-36); Mean Corpuscular Hgb 30.1 pg (27.0-32.0); Mean Corpuscular Volume 90.2 fL (81-99); Mean Platelet Vol. 9.6 fl (6.2-12.0); Monocyte% 6.2 % (0-10); NRBC Flagged by Analyzer 0 % (0-5); Neutrophil # 8.88 X10^3/uL (2.7-7.7); Neutrophil % 79.2 % (47-70); Platelet Count 227 K/mm3 (150-450); RBC Distribution Width CV 13.8 % (11.6-14.6); RBC Distribution Width SD 46.2 fl (35.1-43.9); Red Blood Count 5.01 M/mm3 (4.2-5.4); White Blood Count 11.2 K/mm3 (4.4-11.0)
[2024-11-06 13:18] LABS: Anion Gap 5 (5-15); BUN 12 mg/dL (7-18); BUN/Creat Ratio 11.5 RATIO (10-20); Chloride 96 mmol/L (98-107); Creatinine, Serum 1.04 mg/dL (0.55-1.02); EST Glomerular Filtration Rate 56 mL/min (>60); Est Glom Filt Rate - Afr Amer 68 mL/min (>60); Estimated Creatinine Clearance 44.71 ml/min; Glucose 294 mg/dL (74-106); Potassium 4.4 mmol/L (3.5-5.1); Sodium Level 130 mmol/L (136-145); Troponin-I HS 10 pg/mL (3.0-54.0)
[2024-11-06 13:35] LABS: D-Dimer Quantitative (DVT/PE) 1.77 FEU/ug/m (0.27-0.49)
--- NOTE | 2024-11-06 14:27 | CT_ITS ---
STUDY: CTA CHEST REASON FOR EXAM: Female, 69 years old. Chest pain, hx cancer, elevated d-dimer RADIATION DOSAGE (If Supplied By Facility): CTDIvol = ( 6.38 ) mGy, DLP = ( 182.47 ) mGycm TECHNIQUE: The examination was performed with the intravenous administration of IV 100mL [id number]-[id number]. Post-processing of the angiographic images was performed, with multiplanar reformation and 3D reconstruction. Individualized dose optimization techniques were used for this CT. COMPARISON: Comparison is made with prior chest radiograph done earlier today. FINDINGS: Normal enhancement of the main pulmonary artery and right and left pulmonary arteries. Normal enhancement of the bilateral peripheral pulmonary arteries. There is no demonstrated pulmonary embolism. There is atherosclerotic calcification of the aortic arch with tortuosity. There is no demonstrated aortic dissection. There are calcifications of the coronary arteries. Sternal cerclage wires and vascular clips are present from a prior sternotomy and coronary artery bypass graft procedure (CABG). Calcified subcarinal lymph nodes. Normal hilar regions. Normal visualized trachea and bronchi. Hyperinflation. Emphysematous changes. Fibrocalcific scarring in the anterior right upper lobe. Calcified granuloma in the left lower lobe. Normal pleura. Normal chest wall structures. There are degenerative changes of thoracic spine. Scattered calcified splenic granulomas. CT/CTA Chest W/WO Contrast IMPRESSION: No evidence of pulmonary embolism. Prior CABG. Coronary artery calcification. Electronically Signed: Harry Yu MD at 14:52 EST ,
--- NOTE | 2024-11-06 16:17 | HP.PCM.HOS_ITS ---
HPI - General General Date of Admission: 11/06/24 Date of Service: 11/06/24 Chief Complaint: Painful swallowing and difficulty swallowing HPI Narrative ANIRUDH SHELBY, is a 69 F who presented to [facility] ED on 11/06/2024 with 3-day history of painful swallowing and difficulty swallowing. Patient denies any prior history of dysphagia or odynophagia. Does have history of acid reflux but states this feels much different. No specific moment in time where she began having dysphagia or odynophagia. States she has pain in the upper to mid esophagus with eating or drinking anything. She has been able to get some liquids down but has not eaten any food for the past 3 days. Has history of nonspecific colitis and follows with gastroenterology in the office. Also has history of right-sided lung cancer s/p surgical removal with VATS, did not receive any chemotherapy or radiation with this. In the ED vital signs were stable. Labs notable for mild dehydration with sodium 130, chloride 96, and elevated D-dimer of 1.77. CTA chest was negative for PE and showed no other concerning findings. EKG did show new left bundle branch block however troponin was negative and CTA chest was normal as noted above. Case was discussed with Dr. Corcoran who was agreeable for patient to be admitted with GI consult. Hospitalist was then contacted for admission. I saw the patient at bedside in the ED. Patient was moderately fatigued and thin appearing but was otherwise sitting up comfortably in bed in no acute distress. Her mouth did appear dry on exam. She did report feeling very hungry and was frustrated that she had not been able to eat or drink hardly anything because of her pain and difficulty with swallowing. She lives at home with her sister and is able to do everything around the house for herself without issue. Denies any recent illnesses. Denies any fevers or chills. Denies any other pain or discomfort. Will be admitted for further management. [facility] Medical History (Updated 11/06/24 @ 20:[address] Nikko Berg DO) Anxiety Myocardial infarct Coronary artery disease DVT (deep venous thrombosis) COPD (chronic obstructive pulmonary disease) Brain fog Migraines Anemia Easy bruising Shortness of breath on exertion Chronic cough Leg cramps History of edema Cardiology follow-up encounter History of stress test Chest pain Gastroparesis Wears glasses Wears dentures Marijuana use Diabetes Arthritis High cholesterol Former smoker History of echocardiogram GERD (gastroesophageal reflux disease) Diarrhea Carcinoma, lung Old inferior wall myocardial infarction (03/03/07) Essential (primary) hypertension Depression Atherosclerotic heart disease of [place] coronary artery without angina pectoris Carotid stenosis, right Iron deficiency RLS (restless legs syndrome) Tubular adenoma of colon History of colonic polyps Hyperlipemia Ventral hernia Nausea Reflux esophagitis Osteoarthritis Home Medications ?Medication ?Instructions ?Recorded ?Last Taken ?Type aspirin 81 mg chewable tablet 81 mg PO DAILY@0800 [facility] 01/25/16 05/01/23 History nitroglycerin 0.4 mg sublingual 0.4 mg sublingual Q5-15M PRN chest 11/26/20 Unknown Rx tablet pain #25 tabs escitalopram oxalate 20 mg tablet 20 mg PO DAILY 11/06/21 Unknown History atorvastatin 80 mg tablet 80 mg PO QDAY cholesterol #90 tabs 05/07/22 11/06/24 Rx isosorbide dinitrate 30 mg tablet 30 mg PO DAILY 08/12/22 05/05/23 History metoprolol succinate 50 mg 50 mg PO DAILY #90 tabs 01/21/23 05/05/23 Rx tablet,extended release 24 hr ranolazine 1,000 mg 1,000 mg PO DAILY #180 tabs 01/17/24 Unknown Rx tablet,extended release,12 hr sucralfate 1 gram tablet (Carafate) 1 g PO BID #14 tabs 06/22/24 Unknown Rx famotidine 20 mg tablet 20 mg PO BID #120 TABLETS 10/03/24 Unknown Rx ezetimibe 10 mg tablet (Zetia) 10 mg PO DAILY #90 tabs 11/02/24 Unknown Rx Allergy/AdvReac Type Severity Reaction Status Date / Time codeine Allergy Hives Verified 11/06/24 12:17 fluticasone propionate (From Allergy Hives Verified 11/06/24 12:17 Flonase) mometasone furoate (From Allergy Hives Verified 11/06/24 12:17 Nasonex) Penicillins Allergy Hives Verified 11/06/24 12:17 sitagliptin phosphate (From Allergy Hives Verified 11/06/24 12:17 Januvia) Sulfa (Sulfonamide Allergy Hives Verified 11/06/24 12:17 Antibiotics) tramadol Allergy Hives Verified 11/06/24 12:17 venlafaxine HCl (From Allergy Hives Verified 11/06/24 12:17 Effexor) cortisone AdvReac Other Verified 11/06/24 12:17 desvenlafaxine succinate AdvReac Other Verified 11/06/24 12:17 (From Pristiq) fluoxetine HCl (From Prozac) AdvReac Vomiting Verified 11/06/24 12:17 gabapentin (From Neurontin) AdvReac Vomiting Verified 11/06/24 12:17 hydrochlorothiazide AdvReac Other Verified 11/06/24 12:17 hydrocodone bitartrate (From AdvReac Vomiting Verified 11/06/24 12:17 Vicodin) lisinopril AdvReac Other Verified 11/06/24 12:17 losartan (Losartan) AdvReac Other Verified 11/06/24 12:17 oxycodone HCl (From AdvReac Other Verified 11/06/24 12:17 OxyContin) pioglitazone HCl (From Actos) AdvReac Vomiting Verified 11/06/24 12:17 propoxyphene napsylate (From AdvReac Vomiting Verified 11/06/24 12:17 Darvocet-N) tizanidine AdvReac Other Verified 11/06/24 12:17 Family History Father Cancer bone Grandfather Cancer Grandmother Cancer Other Heart disease Surgical History Hx of colonoscopy History of lung surgery (03/2021) History of cardiac catheterization H/O coronary artery bypass surgery (04/03/07) History of coronary artery stent placement (01/27/16) Abnormal colonoscopy (01/10/18) History of cholecystectomy History of rotator cuff surgery History of hysterectomy History of inguinal hernia repair, bilateral History of bilateral carpal tunnel release History of appendectomy History of arthroscopy of right knee Status post laparoscopic cholecystectomy History of laparoscopy History of esophagogastroduodenoscopy (EGD) Hx of colonoscopy Social History Smoking Status: Current every day smoker tobacco type: cigarettes how long ago did patient quit smokin years ago alcohol intake: never substance use type: marijuana caffeine: Yes Type: coffee Number of servings: 3 ROS Constitutional Constitutional: Reports fatigue; Denies chills, fever(s) or weakness Eyes Eyes: Denies change in vision ENT HEENT: Reports dysphagia Cardiovascular Cardiovascular: Denies chest pain or palpitations Respiratory/Chest Respiratory/Chest: Denies cough or shortness of breath at rest Gastrointestinal Gastrointestinal: Denies abdominal pain, nausea or vomiting Neurologic Neurologic: Denies dizziness or headache(s) Vital Signs Vital Signs Vital Signs: 11/06/24 12:15 11/06/24 13:06 11/06/24 13:15 Temperature 97.7 F L Temperature Source Oral Pulse Rate 84 72 Respiratory Rate 16 24 H Blood Pressure 114/61 138/54 H Blood Pressure Mean 78 79 Pulse Ox 95 Oxygen Delivery Method Room Air Room Air 11/06/24 14:00 11/06/24 15:00 11/06/24 16:00 Temperature Temperature Source Pulse Rate 72 70 71 Respiratory Rate 23 H 21 H 23 H Blood Pressure 123/57 H 146/60 H 149/48 H Blood Pressure Mean 77 85 77 Pulse Ox Oxygen Delivery Method Weight Weight: 55.792 kg Body Mass Index (BMI) 21.1 Physical Exam Const alert, oriented x3, no apparent distress and average body habitus Constitutional Narrative: Elderly female, thin appearing, mildly fatigued appearing, otherwise sitting up comfortably in bed, conversing normally, in no acute distress. General Appearance: cooperative and comfortable HEENT normocephalic, head/scalp atraumatic, hearing grossly normal bilaterally and nasal mucous membranes and turbinates normal HEENT Narrative: Dry mucous membranes. Eyes PERRL, EOMs intact bilaterally and conjunctivae normal Neck full ROM Chest inspection of chest normal Resp normal respiratory effort, normal air movement, no use of accessory muscles and clear to auscultation bilaterally Cardio regular rate, regular rhythm, no murmurs and peripheral pulses 2+ throughout GI normal to inspection, nondistended, normoactive bowel sounds, soft to palpation, non-tender and non-distended Back/Spine normal ROM Extremity normal to inspection, full ROM and no pedal edema Skin no rashes or lesions noted Psych mental status grossly normal Results Lab / Micro Data 11/06/24 12:35 11/06/24 12:35 Labs: Laboratory Results - last 24 hr 11/06/24 12:35: WBC 11.2 H, RBC 5.01, Hgb 15.1 H, Hct 45.2, MCV 90.2, MCH 30.1, MCHC 33.4, RDW Std Deviation 46.2 H, RDW Coeff of Evaristo 13.8, Plt Count 227, MPV 9.6, Immature Gran % (Auto) 0.600, Neut % (Auto) 79.2 H, Lymph % (Auto) 12.8 L, [place] % (Auto) 6.2, Eos % (Auto) 0.5, Baso % (Auto) 0.7, Absolute Neuts (auto) 8.9 H, Absolute Lymphs (auto) 1.44, Nucleated RBC % 0, D-Dimer Quant (PE/DVT) 1.77 H*, Sodium 130 L, Potassium 4.4, Chloride 96 L, Carbon Dioxide 29.0, Anion Gap 5, BUN 12, Creatinine 1.04 H, Estim Creat Clear Calc 44.71, Est GFR (MDRD) Af Amer 68, Est GFR (MDRD) Non-Af 56 L, BUN/Creatinine Ratio 11.5, Glucose 294 H , Calcium 10.0, Troponin I High Sens 10 Rhythm Strip Rhythm Strip: Sinus Rhythm Rate: 75 Ectopy: None Imaging Radiology Impression Chest X-Ray 11/06/24 13:00 IMPRESSION: No acute abnormality is seen. Electronically Signed: Harry Yu MD at 13:20 EST , Chest CTA 11/06/24 14:27 IMPRESSION: No evidence of pulmonary embolism. Prior CABG. Coronary artery calcification. Electronically Signed: Harry Yu MD at 14:52 EST , Assessment & Plan Assessment/Plan (1) Esophageal dysphagia: (2) Odynophagia: PLAN: Plan Patient is a 69-year-old female who presented [facility] ED on 11/06/2024 with dysphagia and odynophagia. 1. Acute onset dysphagia with odynophagia ? Admit under inpatient status to [facility]. GI consulted. Unclear etiology for acute onset dysphagia with odynophagia. CTA chest on admit with no concerning findings. Has history of GERD but patient reports it is well-controlled on medication. N.p.o. at midnight with plan for upper endoscopy tomorrow for further evaluation. 2. Mild hyponatremia ? Sodium 130 on admit. Presumed secondary to mild dehydration from poor p.o. intake. No mental status change. Given 1 L normal saline in the ED. Follow-up a.m. sodium level. 3. Type 2 diabetes mellitus with hyperglycemia ? Blood glucose 294 on admit. A1c 8.4%. Does not appear she is on any home diabetes medications. Will treat with sliding scale insulin with meals while inpatient. Chronic medical conditions: ? History of CAD with CABG and stenting, hypertension, hyperlipidemia: Continue home aspirin, statin, nitrate, Toprol and ranolazine. ? Iron deficiency anemia: Follows with outpatient hematology. Does not tolerate p.o. iron supplements due to GI issues, receives IV iron infusions intermittently. Hemoglobin 15.1 on admit, baseline appears to be around 13-14. Suspect mild hemoconcentration. No need to monitor further CBCs while inpatient. ? GERD: Continue home famotidine. ? Depression: Continue home escitalopram. ? History of nonspecific colitis: Follows with outpatient GI. Not currently on any home medications for this. Denies any worsening of diarrhea from her normal. No inpatient needs. ? History of liver fibrosis: Diagnosed on ultrasound abdomen with elastography. No evidence of cirrhosis and labs stable at baseline. Continue outpatient GI follow-up. ? History of lung cancer s/p surgical resection DVT prophylaxis: Lovenox CODE STATUS: Full code, verified Expected disposition: Home, 2 to 3 days Total clinical time spent by myself addressing the patient's medical issues, reviewing all the data, and collaborating with patient's care team: 55 minutes. Charges/Coding Visit Charges Inpatient E&M: 72108 Init Hosp L2
[2024-11-06 17:21] LABS: Hemoglobin A1c 8.4 % (3.8-5.6)
[2024-11-06 17:33] LABS: AST(SGOT) 13 U/L (15-37); Alanine Aminotransfer ALT/SGPT 12 U/L (13-56); Alkaline Phosphatase 146 U/L (45-117); Bilirubin, Direct 0.41 mg/dL (0.00-0.30); Globulin 4.2 g/dL (2.2-4.2); Protein, Total 8.2 g/dL (6.4-8.2)
[2024-11-06] MEDS: 0.9% Normal Saline (1000mL) 1,000 ML 999 ML IV (18:22)
[2024-11-06] MEDS: 0.9% Saline Lock 10 ML Syringe IV (18:22)
--- NOTE | 2024-11-06 19:19 | CON.PCM.GI_ITS ---
HPI Consult Data Date of Consult: 11/06/24 HPI Narrative Reason for Consultation: Dysphagia HPI Narrative: ANIRUDH SHELBY, is a 69-year-old female with chest pain that has been there for 3 days now constantly. She has a past medical history of COPD, lung CA, fatty liver, JOEY and history of ulcerative colitis. She states it hurts to swallow, upper mid chest, but the pain is there less severe when she is not swallowing, and radiates off to the left toward her shoulder. Denies dyspnea. Chronic cough not necessarily different than usual. No hemoptysis. She states she is able to swallow without vomiting, but is significantly painful to do so. She had a history of a lung nodule that was growing and ended up being cancerous, she had surgery for it on her right lower lung, states she did not have any radiation treatments. [facility] Medical History (Updated 11/06/24 @ 15:[address] Eduar Smith MD) Anxiety Myocardial infarct Coronary artery disease DVT (deep venous thrombosis) COPD (chronic obstructive pulmonary disease) Brain fog Migraines Anemia Easy bruising Shortness of breath on exertion Chronic cough Leg cramps History of edema Cardiology follow-up encounter History of stress test Chest pain Gastroparesis Wears glasses Wears dentures Marijuana use Diabetes Arthritis High cholesterol Former smoker History of echocardiogram GERD (gastroesophageal reflux disease) Diarrhea Carcinoma, lung Old inferior wall myocardial infarction (03/03/07) Essential (primary) hypertension Depression Atherosclerotic heart disease of [place] coronary artery without angina pectoris Carotid stenosis, right Iron deficiency RLS (restless legs syndrome) Tubular adenoma of colon History of colonic polyps Hyperlipemia Ventral hernia Nausea Reflux esophagitis Osteoarthritis Home Medications ?Medication ?Instructions ?Recorded ?Last Taken ?Type aspirin 81 mg chewable tablet 81 mg PO DAILY@0800 [facility] 01/25/16 05/01/23 History nitroglycerin 0.4 mg sublingual 0.4 mg sublingual Q5-15M PRN chest 11/26/20 Unknown Rx tablet pain #25 tabs escitalopram oxalate 20 mg tablet 20 mg PO DAILY 11/06/21 Unknown History atorvastatin 80 mg tablet 80 mg PO QDAY cholesterol #90 tabs 05/07/22 11/06/24 Rx isosorbide dinitrate 30 mg tablet 30 mg PO DAILY 08/12/22 05/05/23 History metoprolol succinate 50 mg 50 mg PO DAILY #90 tabs 01/21/23 05/05/23 Rx tablet,extended release 24 hr ranolazine 1,000 mg 1,000 mg PO DAILY #180 tabs 01/17/24 Unknown Rx tablet,extended release,12 hr sucralfate 1 gram tablet (Carafate) 1 g PO BID #14 tabs 06/22/24 Unknown Rx famotidine 20 mg tablet 20 mg PO BID #120 TABLETS 10/03/24 Unknown Rx ezetimibe 10 mg tablet (Zetia) 10 mg PO DAILY #90 tabs 11/02/24 Unknown Rx Allergy/AdvReac Type Severity Reaction Status Date / Time codeine Allergy Hives Verified 11/06/24 12:17 fluticasone propionate (From Allergy Hives Verified 11/06/24 12:17 Flonase) mometasone furoate (From Allergy Hives Verified 11/06/24 12:17 Nasonex) Penicillins Allergy Hives Verified 11/06/24 12:17 sitagliptin phosphate (From Allergy Hives Verified 11/06/24 12:17 Januvia) Sulfa (Sulfonamide Allergy Hives Verified 11/06/24 12:17 Antibiotics) tramadol Allergy Hives Verified 11/06/24 12:17 venlafaxine HCl (From Allergy Hives Verified 11/06/24 12:17 Effexor) cortisone AdvReac Other Verified 11/06/24 12:17 desvenlafaxine succinate AdvReac Other Verified 11/06/24 12:17 (From Pristiq) fluoxetine HCl (From Prozac) AdvReac Vomiting Verified 11/06/24 12:17 gabapentin (From Neurontin) AdvReac Vomiting Verified 11/06/24 12:17 hydrochlorothiazide AdvReac Other Verified 11/06/24 12:17 hydrocodone bitartrate (From AdvReac Vomiting Verified 11/06/24 12:17 Vicodin) lisinopril AdvReac Other Verified 11/06/24 12:17 losartan (Losartan) AdvReac Other Verified 11/06/24 12:17 oxycodone HCl (From AdvReac Other Verified 11/06/24 12:17 OxyContin) pioglitazone HCl (From Actos) AdvReac Vomiting Verified 11/06/24 12:17 propoxyphene napsylate (From AdvReac Vomiting Verified 11/06/24 12:17 Darvocet-N) tizanidine AdvReac Other Verified 11/06/24 12:17 Family History Father Cancer bone Grandfather Cancer Grandmother Cancer Other Heart disease Surgical History Hx of colonoscopy History of lung surgery (03/2021) History of cardiac catheterization H/O coronary artery bypass surgery (04/03/07) History of coronary artery stent placement (01/27/16) Abnormal colonoscopy (01/10/18) History of cholecystectomy History of rotator cuff surgery History of hysterectomy History of inguinal hernia repair, bilateral History of bilateral carpal tunnel release History of appendectomy History of arthroscopy of right knee Status post laparoscopic cholecystectomy History of laparoscopy History of esophagogastroduodenoscopy (EGD) Hx of colonoscopy Social History Smoking Status: Current every day smoker tobacco type: cigarettes how long ago did patient quit smokin years ago alcohol intake: never substance use type: marijuana caffeine: Yes Type: coffee Number of servings: 3 ROS Review of Systems ROS Unobtainable: other Constitutional Constitutional: Denies fatigue, fever(s), poor appetite, weight gain or weight loss ENT HEENT: Denies mouth lesions Cardiovascular Cardiovascular: Denies abdominal bloating, abdominal edema or abdominal pain Respiratory/Chest Respiratory/Chest: Denies change in mental status, change in phlegm color, chest congestion or chest tightness Gastrointestinal Gastrointestinal: Denies belching, bloating, change in bowel habits, change in stool character, chewing difficulty, coffee ground emesis, constipation, cramping, diarrhea, dyspepsia, dysphagia, early satiety, excessive flatus, fecal incontinence, heartburn, hematemesis, hematochezia, hemorrhoids, loose stools, melena, nausea, odynophagia, rectal bleeding, tenesmus, vomiting or weight changes Genitourinary Genitourinary: Denies abdominal discomfort, burning urination or itching Musculoskeletal Musculoskeletal: Reports as per HPI; Denies muscle weakness or myalgias Integumentary Integumentary: Denies jaundice Neurologic Neurologic: Denies lack of coordination or weakness Psychiatric Psychiatric: Denies confusion, depression, memory loss, mood swings, paranoia or suicidal ideation Endocrine Endocrinology: Denies systems reviewed and no addt'l complaints, except as documented Hematologic/Lymphatic Hematologic/Lymphatic: Denies anemia, easy bleeding, easy bruising or lymphadenopathy Allergic/Immunologic Allergic/Immunologic: Denies systems reviewed and no addt'l complaints, except as documented Physical Exam Const alert, oriented x3 and no apparent distress Lab / Micro Data 11/06/24 12:35 11/06/24 12:35 Labs: Laboratory Results - last 24 hr 11/06/24 12:35: WBC 11.2 H, RBC 5.01, Hgb 15.1 H, Hct 45.2, MCV 90.2, MCH 30.1, MCHC 33.4, RDW Std Deviation 46.2 H, RDW Coeff of Evaristo 13.8, Plt Count 227, MPV 9.6, Immature Gran % (Auto) 0.600, Neut % (Auto) 79.2 H, Lymph % (Auto) 12.8 L, [place] % (Auto) 6.2, Eos % (Auto) 0.5, Baso % (Auto) 0.7, Absolute Neuts (auto) 8.9 H, Absolute Lymphs (auto) 1.44, Nucleated RBC % 0, D-Dimer Quant (PE/DVT) 1.77 H*, Sodium 130 L, Potassium 4.4, Chloride 96 L, Carbon Dioxide 29.0, Anion Gap 5, BUN 12, Creatinine 1.04 H, Estim Creat Clear Calc 44.71, Est GFR (MDRD) Af Amer 68, Est GFR (MDRD) Non-Af 56 L, BUN/Creatinine Ratio 11.5, Glucose 294 H , Hemoglobin A1c 8.4 H, Calcium 10.0, Total Bilirubin 2.20 H, Direct Bilirubin 0.41 H, AST 13 L, ALT 12 L, Alkaline Phosphatase 146 H, Troponin I High Sens 10, Total Protein 8.2, Albumin 4.0, Globulin 4.2 Rhythm Strip Rhythm Strip: Sinus Rhythm Rate: 75 Ectopy: None Imaging Radiology Impression Chest X-Ray 11/06/24 13:00 IMPRESSION: No acute abnormality is seen. Electronically Signed: Harry Yu MD at 13:20 EST , Chest CTA 11/06/24 14:27 IMPRESSION: No evidence of pulmonary embolism. Prior CABG. Coronary artery calcification. Electronically Signed: Harry Yu MD at 14:52 EST , Assessment & Plan Assessment/Plan (1) Esophageal dysphagia: PLAN: 69-year-old with COPD, history of lung cancer and nicotine addiction presents with esophageal dysphagia. Differential diagnosis does include esophageal candidiasis, esophageal dysmotility disorder, cough induced reflux disease, Schatzki's ring, esophageal stricture. She will undergo an upper endoscopy to evaluate upper GI tract. She was explained alternatives, risk, benefits including not withstanding bleeding, infection, sepsis, perforation, need for emergent urgent . She will have an ASA of 3. Charges/Coding Visit Charges Inpatient E&M: 06123 Init Hosp L3
[2024-11-06 22:12] LABS: Bedside Glucose 162 mg/dL (74-106)
[2024-11-06] MEDS: Famotidine 200 MG/20 ML MDV 20 MG in 0.9% Normal Saline (Pres. free 8 ML 300 MG IV (22:36)
[2024-11-06] MEDS: 0.9% Normal Saline (1000mL) 1,000 ML 75 ML IV (22:36)
[2024-11-07] VITALS (14 sets, daily range): BP systolic 84–138; BP diastolic 42–68; PULSE 61–77; RESP 16; TEMP 36.3–36.8; O2SAT 92–99
[2024-11-07 05:25] LABS: Hematocrit 39.8 % (37-47); Mean Corp Hgb Conc 32.7 g/dL (32-36); Mean Corpuscular Volume 91.7 fL (81-99); Mean Platelet Vol. 9.2 fl (6.2-12.0); Platelet Count 195 K/mm3 (150-450); RBC Distribution Width CV 13.6 % (11.6-14.6); RBC Distribution Width SD 46.4 fl (35.1-43.9); Red Blood Count 4.34 M/mm3 (4.2-5.4); White Blood Count 8.6 K/mm3 (4.4-11.0)
[2024-11-07 05:35] LABS: International Normalized Ratio 1.2; Prothrombin Time (Protime)PT. 14.7 SECONDS (11.7-14.9)
[2024-11-07 05:42] LABS: ALB/GLOB Ratio 0.8 RATIO (0.9-2.4); AST(SGOT) 12 U/L (15-37); Alanine Aminotransfer ALT/SGPT 13 U/L (13-56); Alkaline Phosphatase 116 U/L (45-117); Anion Gap 5 (5-15); BUN 9 mg/dL (7-18); BUN/Creat Ratio 12.9 RATIO (10-20); Calcium,Total 8.8 mg/dL (8.5-10.1); Chloride 104 mmol/L (98-107); EST Glomerular Filtration Rate 89 mL/min (>60); Est Glom Filt Rate - Afr Amer 108 mL/min (>60); Estimated Creatinine Clearance 58.12 ml/min; Globulin 3.6 g/dL (2.2-4.2); Glucose 158 mg/dL (74-106); Protein, Total 6.6 g/dL (6.4-8.2); Sodium Level 135 mmol/L (136-145)
[2024-11-07 07:03] LABS: Bedside Glucose 165 mg/dL (74-106)
[2024-11-07 09:07] LABS: Hemoglobin A1c 8.6 % (3.8-5.6)
[2024-11-07] MEDS: Famotidine 200 MG/20 ML MDV 20 MG in 0.9% Normal Saline (Pres. free 8 ML 300 MG IV (10:31)
[2024-11-07] MEDS: Metoprolol(XL)Succ 50 MG Tablet PO (10:32)
--- NOTE | 2024-11-07 11:40 | CASEMGMT ---
Addendum entered by Jovanny Gerber 11/07/24 14:07: Pt states sister, Christa, and Christa's fiance both live w/her. Original Note: RN CM [employer] CM?to room to meet with patient for initial transition planning/care coordination assessment. RN CM?introduced self and role at [facility]. Pt voices understanding and consents to assessment?at this time. Pt resting in bed in no distress at this time. Pt is A/O at this time and answers all questions appropriately. Care providers, pharmacy, and demographics verified/updated at this time. Strata:?3 PCP: Dr Sy Specialists: Dr West-oncology. Dr Corcoran- JESSIE Preferred Pharmacy: [facility] Insurance: [facility] Dual/[facility] Prescription Benefit: Yes Living Will/HPOA: Pt does not currently have LW/HCPOA and would like to complete. Anisa AL, made aware and to notify SW. LNOK: 2 sisters and 2 brothers. One sister is Christa. Pt has not children and parents are . Living Arrangements: Lives w/sister, Christa, in 2-story home w/6 steps to enter w/railing on both sides. FFSU. Pt states she does not leave the house much d/t having a bad knee, weakness, and having so much difficulty w/the stairs. She states she has to hold on to both sides and take her time or her sister assists. She goes out of the home for doctor's appts mainly, but otherwise does not go out. Her sister gets the groceries. Pt is indep w/ADL'. She manages her own medications, and feels she has a good understanding of what medications/reasons for taking them, feels she manages them well, and states does not need assistance w/this. Transportation:Pt states drives self and states no transportation concerns at this time. Sister will take her home @ dc. DME: States has the following DME: lift chair, sister has a couple canes that she borrows sometimes, has a walker available but does not use. She states she usually furniture walks in the home. She has a scooter but is not able to get it out of the house d/t the stairs. She has a functioning glucometer w/supplies, but states she has not been checking her BS's recently, stating, I've been too wiped out. She would like a rollator @ home, stating she has a bad knee and also fatigues easily. She denies having preference of DME co. Pt states no need for further DME at this time. HHC/SNF: No hx of either. Pt wishes to return home and states may be interested in HHC, but states does not know, as she states she does not have enough strength to do therapy at this time, stating she has just been too weak. PLAN: TBD. Home. Follow for possible HHC or OP ST and possible PT/OT. Follow for rollator. SW to meet w/pt for AD and possible resources for ramp. Leandra MCCRARYN RN CM
[2024-11-07 12:23] LABS: Bedside Glucose 167 mg/dL (74-106)
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
--- NOTE | 2024-11-07 15:15 | EGD_PTH ---
PATIENT: ANIRUDH SHELBY LOC: MS3 U#:[id number] AGE/SX: 69/F ROOM: [facility] – [place] RE11/06/[address]: Dr. Randi Iverson DO : 1955 BED: 1 DIS: 11/07/2024 SPEC #: [id number] RECD: 11/07/24 18:11 STATUS: SCOTT HAN #: [id number] BALDEV: 11/07/24 15:[address]: Ra Nilohsaan DEPT: SURGICAL PATHOLOGY RECD BY: Mehran Salguero ENTERED: 11/08/24 07:12 SP TYPE: EGD BIOPSY HEATH DR: DO Dr. Esdras Gómez MD Dr. Kathryn Lee, DO Tissues: Esophagus, NOS Procedures: Special Stain Group I Surgery Specimen Level IV GMS Stain (control) HEADER OPERATION: EGD with biopsy and dilation PRE-OP DIAGNOSIS: Esophageal dysphagia TISSUE SUBMITTED: Random esophagus biopsy MICROSCOPIC DIAGNOSIS Esophagus, random biopsy: Acute esophagitis. Fibrinopurulent material suggestive of ulcer. Fungal organisms are present, consistent with Elizabeth species. See comment. 11/09/2024 COMMENT GMS stain with matched control was used in the evaluation of this case. MICROSCOPIC DESCRIPTION Slides are reviewed. GROSS DESCRIPTION Received in fixative is one container labeled with the patient's name and designated Random esophagus biopsy. The specimen consists of multiple irregular fragments of light welsh soft tissue that in aggregate measure 0.5 x 0.3 x 0.1 cm. The specimen is totally submitted in one cassette. 11/08/2024 TC:2 CPT:10174,49586
--- NOTE | 2024-11-07 16:05 | PCM.POST.ANE ---
Anesthesia: Postop Eval I Current Vital Signs Temperature: 97.4 F Pulse Rate: 74 Blood Pressure: 88/67 Respiratory Rate: 16 Pulse Ox: 99 Assessment Airway patent: Yes Spontaneous unlabored respirations: Yes nausea: No Vomiting: No Anesthesia Complication: No Fluid Hydration Crystalloid volume administer (ml): 20 Total IV fluid infused: 20 Progress Note Anesthesia document: Postop Eval 1 completed: Yes
--- NOTE | 2024-11-07 16:08 | OP.CCLET_ITS ---
11/07/2024 [address] [place] [address] Re : Upper GI endoscopy procedure for Karolina Canada Dear Dr. Sy This procedure was performed on Thursday, November 07, 2024. My impressions and recommendations are as follows: Impressions : - Esophageal plaques were found, consistent with candidiasis. Biopsied. - Esophageal mucosal changes consistent with eosinophilic esophagitis. Dilated. - No gross lesions in the entire stomach. - No gross lesions in the duodenal bulb. - Biopsies were taken with a cold forceps for evaluation of eosinophilic esophagitis. Recommendations : - Discharge patient to home. - Full liquid diet today. - Nystatin suspension 200,000 units PO QID for 10 days. - Continue present medications. My findings are described in the full procedure note, which is enclosed. If I can be of further assistance, please feel free to contact me at . Sincerely, Charlie Corcoran, 11/07/2024 4:08:21 PM This report has been signed electronically.
--- NOTE | 2024-11-07 16:08 | OP.EGD_ITS ---
Patient Name: Karolina Canada Procedure Date: 11/07/2024 3:41 PM Date of : 1955 Age: 69 Procedure: Upper GI endoscopy Indications: Dysphagia, Odynophagia Providers: Charlie Corcoran DO Medicines: Monitored Anesthesia Care Patient Profile: This is a 69 year old female. Refer to note in patient chart for documentation of history and physical. Patient has symptoms of dysphagia with liquids and dysphagia with solids. Complications: No immediate complications. Procedure: Pre-Anesthesia Assessment: - Prior to the procedure, a History and Physical was performed, and patient medications and allergies were reviewed. The patient is competent. The risks and benefits of the procedure and the sedation options and risks were discussed with the patient. All questions were answered and informed consent was obtained. Patient identification and proposed procedure were verified by the physician in the pre-procedure area. Mental Status Examination: alert and oriented. Airway Examination: normal oropharyngeal airway and neck mobility. Respiratory Examination: clear to auscultation. CV Examination: normal. Prophylactic Antibiotics: The patient does not require prophylactic antibiotics. Prior Anticoagulants: The patient has taken no anticoagulant or antiplatelet agents. ASA Grade Assessment: III - A patient with severe systemic disease. After reviewing the risks and benefits, the patient was deemed in satisfactory condition to undergo the procedure. The anesthesia plan was to use monitored anesthesia care (MAC). Immediately prior to administration of medications, the patient was re-assessed for adequacy to receive sedatives. The heart rate, respiratory rate, oxygen saturations, blood pressure, adequacy of pulmonary ventilation, and response to care were monitored throughout the procedure. The physical status of the patient was re-assessed after the procedure. After obtaining informed consent, the endoscope was passed under direct vision. Throughout the procedure, the patient's blood pressure, pulse, and oxygen saturations were monitored continuously. The Endoscope was introduced through the mouth, and advanced to the second part of duodenum. The upper GI endoscopy was accomplished without difficulty. The patient tolerated the procedure well. Scope In: 3:52:20 PM Scope Out: 3:59:21 PM Total Procedure Duration Time 0 hours 7 minutes 1 second Findings: Diffuse, white plaques were found in the entire esophagus. Biopsies were taken with a cold forceps for histology. Verification of patient identification for the specimen was done. Estimated blood loss was minimal. Mucosal changes including small-caliber esophagus, crepe paper esophagus, esophageal erosions, longitudinal markings and punctate white spots were found in the upper third of the esophagus and in the middle third of the esophagus. Biopsies were obtained from the proximal and distal esophagus with cold forceps for histology of suspected eosinophilic esophagitis. Verification of patient identification for the specimen was done. Estimated blood loss was minimal. A guidewire was placed and the scope was withdrawn. Dilation was performed with a Savary dilator with no resistance at 51 Fr. The dilation site was examined and showed. Estimated blood loss was minimal. No gross lesions were noted in the entire examined stomach. No gross lesions were noted in the duodenal bulb. Impression: - Esophageal plaques were found, consistent with candidiasis. Biopsied. - Esophageal mucosal changes consistent with eosinophilic esophagitis. Dilated. - No gross lesions in the entire stomach. - No gross lesions in the duodenal bulb. - Biopsies were taken with a cold forceps for evaluation of eosinophilic esophagitis. Recommendation: - Discharge patient to home. - Full liquid diet today. - Nystatin suspension 200,000 units PO QID for 10 days. - Continue present medications. Procedure Code(s): --- Professional --- 91769, Esophagogastroduodenoscopy, flexible, transoral; with insertion of guide wire followed by passage of dilator(s) through esophagus over guide wire 82395, 59,51, Esophagogastroduodenoscopy, flexible, transoral; with biopsy, single or multiple CPT copyright 2021 [employer]. All rights reserved. The codes documented in this report are preliminary and upon sheriff's officer review may be revised to meet current compliance requirements. Charlie Corcoran DO 11/07/2024 4:08:21 PM This report has been signed electronically. Number of Addenda: 0 Note Initiated On: 11/07/2024 3:41 PM
--- NOTE | 2024-11-07 16:54 | PCM.POSTANE2 ---
Anesthesia Postop Eval I Sum Anesthesia Postop Eval I Summary Anesthesia Postop Eval I Summary: Anesthesia Postop Eval I: Assessment Summary Airway patent Spontaneous unlabored respirations Mental status nausea Vomiting Anesthesia Postop Eval I: Fluid Summary Crystalloid volume administer (ml) Colloids volume administered ( ml) Blood Product volume administered (ml) Total IV fluid infused Anesthesia Postop Eval I: Summary Notes Anesthesia Complication Anesthesia Complication Comment: Post-operative progress note Anesthesia: Postop Eval II Evaluation Mental status: Awake and Calm Pain Level: 0 nausea: No Vomiting: No Complications Anesthesia Complication: No
[2024-11-07] MEDS: Ranolazine 500 MG Tablet 1000 MG PO (17:14)
[2024-11-07] MEDS: Enoxaparin 40 MG/0.4 ML Syringe SC (17:14)
[2024-11-07] MEDS: Ezetimibe 10 MG Tablet PO (17:15)
[2024-11-07] MEDS: Aspirin 81 MG TAB.CHEW PO (17:15)
[2024-11-07] MEDS: Escitalopram Oxalate 20 MG Tablet PO (17:15)
[2024-11-07] MEDS: Isosorbide DN 30 MG Tablet PO (17:15)
[2024-11-07] MEDS: Atorvastatin Calcium 80 MG Tablet PO (17:16)
[2024-11-07] MEDS: Sucralfate 1 GM Tablet PO (17:16)
[2024-11-07] MEDS: NYSTATIN 500,000 UNIT/5 ML UDC 100000 UNIT PO (17:20)
[2024-11-07] MEDS: Fluconazole 100 MG Tablet PO (17:20)
--- NOTE | 2024-11-07 17:48 | PCM.POST.ANE ---
Anesthesia: Postop Eval I Current Vital Signs Temperature: 97.5 F Pulse Rate: 61 Blood Pressure: 129/60 Respiratory Rate: 16 Pulse Ox: 94 Oxygen Delivery Method: Room Air Assessment Airway patent: Yes Spontaneous unlabored respirations: Yes Mental status: Awake and Calm nausea: No Vomiting: No Anesthesia Complication: No Fluid Hydration Crystalloid volume administer (ml): 30 Total IV fluid infused: 30 Progress Note Anesthesia document: Postop Eval 1 completed: Yes
[2024-11-07 18:25] LABS: Bedside Glucose 144 mg/dL (74-106)
--- NOTE | 2024-11-07 18:45 | DS.PCM_ITS ---
Providers Date of Admission: 11/06/24 Date of Discharge: 11/07/24 Primary Care Physician: Dr. Esdras Sy MD Consultations 11/06/24 17:43 Consult: Gastroenterology Routine Consulting Provider: [facility] Reason for Consult: acute onset odynophagia w/ dysphagia EMERGENT Consult: No MD Notified: Yes Date Notified: 11/06/24 Time Notified: 17:56 Method of Notification: Text Reason For Visit: ODYNOPHAGIA WITH DYSPHAGIA Diagnosis Discharge Diagnosis (1) Esophageal dysphagia: Status: Acute Code(s): R13.19 - Other dysphagia (2) Odynophagia: Status: Acute Code(s): R13.10 - Dysphagia, unspecified Medications at Discharge Home Medications aspirin 81 mg chewable tablet 81 mg PO DAILY@0800 [facility] 01/25/16 nitroglycerin 0.4 mg sublingual tablet 0.4 mg sublingual Q5-15M PRN chest pain #25 tabs 11/26/20 escitalopram oxalate 20 mg tablet 20 mg PO DAILY 11/06/21 atorvastatin 80 mg tablet 80 mg PO QDAY cholesterol #90 tabs 05/07/22 isosorbide dinitrate 30 mg tablet 30 mg PO DAILY 08/12/22 metoprolol succinate 50 mg tablet,extended release 24 hr 50 mg PO DAILY #90 tabs 01/21/23 ranolazine 1,000 mg tablet,extended release,12 hr 1,000 mg PO DAILY #180 tabs 01/17/24 sucralfate 1 gram tablet (Carafate) 1 g PO BID #14 tabs 06/22/24 famotidine 20 mg tablet 20 mg PO BID #120 TABLETS 10/03/24 ezetimibe 10 mg tablet (Zetia) 10 mg PO DAILY #90 tabs 11/02/24 fluconazole 100 mg tablet 100 mg PO DAILY #7 tabs 11/07/24 metformin 1,000 mg tablet 1,000 mg PO BID #60 tabs 11/07/24 nystatin 100,000 unit/mL oral suspension 400,000 unit (4 mL) PO 4X/DAY 14 days #224 mL 11/07/24 Hospital Course Operations None Procedures EGD, EKG and - (Chest x-ray/CTA chest) Summary of Care Provided Minutes Spent on Discharge: 37 Hospital Course: Patient is a 69-year-old white female who presented to the emergency department at [facility] on 11/06/2024 with a chief complaint of odynophagia. She reported that she had about a 4-day history of odynophagia with difficulty swallowing and painful swallowing. She denied any previous history like this. She reported pain was in the mid to upper esophagus while eating or drinking anything. She stated she has been able to get some liquids down but had not been able to get any food down for the time period that she been symptomatic. She does have a history of tobacco abuse but is not on any inhalers. Vital signs on presentation showed temperature of 97.7, heart rate 84, respirate 16, blood pressure was 114/61 and pulse ox was 95% on room air. CBC was overtly unremarkable with a stable hemoglobin. She did have an elevated white count. Coags were normal. Chemistry panel was overtly unremarkable. She did have a hyperglycemia with a blood glucose level of 158 and hemoglobin A1c of 8.6. Chest x-ray showed no acute abnormalities. 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 She was admitted to medical floor placed on clear liquid diet and GI was consulted. EGD was performed on 11/07/2024 and showed esophageal plaques consistent with candidiasis, esophageal mucosal changes consistent with eosinophilic esophagitis and had some dilation in this area due to some narrowing with biopsies taken. Nystatin 4000 units p.o. 4 times daily for 10 days and fluconazole for total of 7 days were recommended at the time of discharge. We were going to trial a full liquid diet this evening and tomorrow morning but patient was adamant that she wanted go home. I did discuss this with Dr. Corcoran and he stated she was okay to discharge home as long as she did well with her diet this evening which she did. He plans on seeing her in the office later this week. Prescriptions for nystatin and fluconazole were sent to local pharmacy. She was also found to be diabetic with a hemoglobin A1c of 8.6. I did start her on metformin twice daily and asked her to follow-up closely with her primary care physician with regards to her diabetes. She is to follow- up with Dr. Corcoran at the end of the week. Patient was able to get all diagnostic procedures done more quickly than anticipated and symptoms improved more quickly than anticipated at the time of admission. Physical Exam Const alert, oriented x3, no apparent distress and no limitations; Negative for average body habitus, healthy appearing or well nourished Constitutional Narrative: Thin, upper middle-aged, white female, sitting up in bed, appears comfortable, nontoxic, appears older than stated age General Appearance: cooperative, comfortable, well kempt and well developed Exam Limitations: no limitations Nutritional Appearance: thin HEENT normocephalic, head/scalp atraumatic and hearing grossly normal bilaterally HEENT Narrative: Mallampati 2, no thrush, mucous membranes are dry intraorally Eyes PERRL Neck no lymphadenopathy and supple Neck Narrative: Neck veins are flat, trachea midline, no thrush Resp normal respiratory effort, no retractions, no use of accessory muscles and clear to auscultation bilaterally Cardio regular rate, regular rhythm, S1 normal heart sound, S2 normal heart sound, no murmurs, no rub, no gallops and no clicks GI normal to inspection, nondistended, normoactive bowel sounds, soft to palpation and non-tender GI Narrative: Scaphoid abdomen Extremity no clubbing, cyanosis or edema Extremity Narrative: Decreased lean muscle mass, radial pulses 2+, pedal pulses 2+ Skin skin turgor normal and no jaundice Neuro oriented x3, moves all extremities and no focal motor deficits Speech: speech normal Psych affect normal Psych Narrative: Very pleasant, interacts appropriately Weight / BMI Weight Weight: 55.5 kg Body Mass Index (BMI) 20.9 ABG / Lab / Microbiology Data 11/07/24 05:09 11/07/24 05:09 Laboratory: Laboratory Results - last 24 hr 11/06/24 21:54: POC Glucose 162 H 11/07/24 05:09: WBC 8.6, RBC 4.34, Hgb 13.0, Hct 39.8, MCV 91.7, MCH 30.0, MCHC 32.7, RDW Std Deviation 46.4 H, RDW Coeff of Evaristo 13.6, Plt Count 195, MPV 9.2, PT 14.7, INR 1.2, Sodium 135 L, Potassium 4.0, Chloride 104, Carbon Dioxide 26.0, Anion Gap 5, BUN 9, Creatinine 0.70, Estim Creat Clear Calc 58.12, Est GFR (MDRD) Af Amer 108, Est GFR (MDRD) Non-Af 89, BUN/Creatinine Ratio 12.9, Glucose 158 H, Hemoglobin A1c 8.6 H, Calcium 8.8, Total Bilirubin 1.30 H, AST 12 L, ALT 13, Alkaline Phosphatase 116, Total Protein 6.6, Albumin 3.0 L, Globulin 3.6, A lbumin/Globulin Ratio 0.8 L 11/07/24 06:27: POC Glucose 165 H 11/07/24 11:24: POC Glucose 167 H 11/07/24 17:08: POC Glucose 144 H D/C Instructions Discharge Diet: Light diet - advance as tolerated Discharge Activity: Return to Normal Activity DC O2, CPAP, BIPAP Needs Additional Home O2 Discharge instructions: No DC home with Oxygen: No Meaningful Use Info Meaningful Use Meaningful Use Diagnoses (Choose all that apply): None applicable Ischemic Stroke Statin Dosing Therapy Reference: STATIN DOSE THERAPY REFERENCE: * Patients > 75 years receive moderate or high dose statin therapy. * Patients 75 years or YOUNGER should receive HIGH intensity statin dose unless contraindicated. You will be required to document reason for non-treatment if statin daily dose does not meet guidelines. HIGH DOSE STATIN THERAPY DAILY Atorvastatin > than or = to 40 mg Rosuvastatin > than or = to 20 mg Amlodipine + Atorvastatin > than or = to 2.5/40 mg Ezetimibe + Simvastatin 10/80 mg Simvastatin 80mg Discharge Plan Admission Admit Date/Time: 11/06/24 16:22 Primary Reason for Your Visit: Andrés Attending Provider: Randi Iverson Primary Care Provider: Esdras Sy Consulting Providers: Nikko Berg Instructions Additional Instructions / Restrictions: 1. Please complete Abx as ordered 2. 's friend office will call you to set up an appointment. If you do not hear from them in the next 24 to 48 hours please call and schedule an appointment to be seen at first available appointment. 3. You were found to be diabetic during her hospitalization. We did start you on low-dose medication for this and I strongly encourage you to follow-up with your primary care physician for ongoing care with regards to your diabetes. Discharge Orders/Prescriptions Prescriptions: New fluconazole 100 mg Tablet 100 mg PO DAILY Qty: 7 0RF nystatin 100,000 unit/mL Suspension 400,000 unit PO 4X/DAY 14 Days Qty: 224 0RF metformin 1,000 mg tablet 1,000 mg PO BID Qty: 60 0RF Continued nitroglycerin 0.4 mg tablet, sublingual 0.4 mg SUBLINGUAL Q5-15M PRN (Reason: chest pain) Qty: 25 3RF Rx Instructions: do not exceed 3 doses per episode escitalopram oxalate 20 mg tablet 20 mg PO DAILY Patient Comments: TAKE 1 TABLET EVERY MORNING atorvastatin 80 mg tablet 80 mg PO QDAY Qty: 90 3RF isosorbide dinitrate 30 mg tablet 30 mg PO DAILY Rx Instructions: allow nitrate-free interval of 12-14 hrs per 24-hr period metoprolol succinate 50 mg tablet extended release 24 hr 50 mg PO DAILY Qty: 90 3RF aspirin 81 MG tablet,chewable 81 mg PO DAILY@0800 sucralfate [Carafate] 1 gram tablet 1 g PO BID Qty: 14 0RF ranolazine 1,000 mg tablet extended release 12 hr 1,000 mg PO DAILY Qty: 180 3RF famotidine 20 mg tablet 20 mg PO BID Qty: 120 0RF ezetimibe [Zetia] 10 mg tablet 10 mg PO DAILY Qty: 90 3RF Referrals / Follow Up: Esdras Sy MD [Primary Care Provider] - Within 2 Weeks Charlie Corcoran DO [Med Staff - Active Staff] - Within 1 Week (Office should call you to be seen likely by the end of the week or early next week if you do not hear from them please call the office and schedule an appointment) Disposition Disposition (needs filled in before D/C Order can be placed): Home, Self Care Charges/Coding Visit Charges Inpatient E&M: 04220 Disch Hosp >30min
== END 2024-11-07 19:30 | disposition home or self-care (01) | DRG 369 ==
LOC: ED 15:52 → MS3 17:34
PROVIDERS: Anesthesiology; Internal Medicine Gastroenterology; Admitting Provider Hospitalist; Emergency Provider Emergency Medicine; PCP Family Medicine; Visit Provider Internal Medicine
PROC: 0DJ08ZZ Inspection of Upper Intestinal Tract, Via Natural or Artificial Opening Endoscopic (ICD-10-PCS; CPT 43235; principal; 2024-11-07 15:10)
DX: B37.81 Candidal esophagitis (principal); E87.1 Hypo-osmolality and hyponatremia; E11.65 Type 2 diabetes mellitus with hyperglycemia; D50.9 Iron deficiency anemia, unspecified; K22.2 Esophageal obstruction; R13.10 Dysphagia, unspecified; J44.9 Chronic obstructive pulmonary disease, unspecified; I10 Essential (primary) hypertension; K20.0 Eosinophilic esophagitis; E78.00 Pure hypercholesterolemia, unspecified; I25.10 Atherosclerotic heart disease of native coronary artery without angina pectoris; I25.2 Old myocardial infarction; E86.0 Dehydration; Z79.82 Long term (current) use of aspirin; Z79.84 Long term (current) use of oral hypoglycemic drugs; Z87.891 Personal history of nicotine dependence; Z95.1 Presence of aortocoronary bypass graft; Z95.5 Presence of coronary angioplasty implant and graft; Z85.118 Personal history of other malignant neoplasm of bronchus and lung; Z87.19 Personal history of other diseases of the digestive system
CPT/HCPCS: 36415; 71045; 71275; 80048; 80053; 80076; 82962; 83036; 84484; 85025; 85027; 85379; 85610; 88305; 88312; 93005; 94668; 97802; 99284; J7030; J7040; Q9967; A4216; C1769; J3490

== ENCOUNTER → 2024-12-26 | Outpatient (CLI) | payer MEDICARE, MEDICAID, SELFPAY ==
--- NOTE | 2024-12-26 11:54 | BI_ITS ---
PROCEDURE: SCRN MAMM (CAD)W/BRITTNI BILAT REASON FOR EXAM: F, Age 69 y/o, no family history. History of prior lung cancer. TECHNIQUE: Bilateral screening digital breast tomosynthesis with 2D and 3D images. Computer aided detection. COMPARISON: Prior exam(s) dating back to August 18, 2022.. FINDINGS: The breasts are heterogeneously dense which may obscure small masses. Stable examination. No suspicious masses, areas of developing architectural distortion, or suspicious calcifications. BI/SCRN MAMM (CAD)W/BRITTNI BILAT IMPRESSION: BI-RADS 1: NEGATIVE. RECOMMEND ANNUAL MAMMOGRAPHIC SCREENING. Follow-up code: Routine Follow-up The patient will be notified of the results by letter. Reading Location: [place] [id number]
== END | disposition home or self-care (01) ==
PROVIDERS: PCP Family Medicine; Referring Provider Nurse Practitioner Family; Visit Provider Nurse Practitioner Family
DX: Z12.31 Encounter for screening mammogram for malignant neoplasm of breast (principal)
CPT/HCPCS: 77063; 77067

== ENCOUNTER → 2025-01-16 | Outpatient (CLI) | payer MEDICARE, MEDICAID, SELFPAY ==
--- NOTE | 2025-01-16 08:28 | US_ITS ---
PROCEDURE: ABD LIMITED W/ ELASTOGRAPHY REASON FOR EXAM: NAFLD COMPARISON: Comparison is made with prior study dated April 12, 2024. TECHNIQUE: Right upper quadrant abdominal ultrasound. Jacey ElastQ Imaging shear wave elastography for non-invasive assessment of liver tissue stiffness. Jacey EPIQ Elite. FINDINGS: LIVER: Size: Unremarkable Length: 17.4 cm Echotexture: Normal Contour: Normal Lesions: None identified Elastography: EQI Med: 7.4 kPa EQI Med Timothy: 1.55 m/s IQR/Med: 18 %* GALLBLADDER: Surgically absent. COMMON BILE DUCT: Normal measures 7 mm.. PANCREAS: Normal Visualized portions of the right kidney are unremarkable. No right upper quadrant ascites. The spleen is not enlarged. It measures 9.7 cm x 4.4 cm x 4.5 cm. There is evidence of scattered calcified splenic granulomas. US/ABD Limited w/ Elastography IMPRESSION: NO TO MILD HEPATIC FIBROSIS Reference Values: SRU <1.37 m/s (5.7kPa): No to mild fibrosis 1.37 m/s - 2.2 m/s: Moderate to severe fibrosis >2.2 m/s (15kPa): Significant fibrosis / cirrhosis METAVIR Score F2 or higher: 1.34 m/s (5.7kPa) F3 or higher: 1.55 m/s (7.3kPa) F4: 1.80 m/s (10kPa) * If the IQR/Med is >30%, the variance in the measurements is a large and the a ccuracy of the measurement may be in question. Reading Location: [place] [address]
== END | disposition home or self-care (01) ==
LOC: US 08:24
PROVIDERS: PCP Family Medicine; Referring Provider Internal Medicine; Visit Provider Internal Medicine
DX: K74.00 Hepatic fibrosis, unspecified (principal)
CPT/HCPCS: 76705; 76981

== ENCOUNTER → 2025-05-09 | Outpatient (CLI) | payer MEDICARE, MEDICAID, SELFPAY ==
[2025-05-09 11:56] LABS: Absolute Lymphocyte Count 1.98 X10^3/uL (0.83-4.51); Absolute Neutrophil Count 6.1 X10^3/uL (2.0-7.7); Basophil# 0.08 X10^3/uL; Basophil% 0.9 % (0-1); Eosinophil# 0.15 X10^3/uL; Eosinophils% 1.7 % (0-5); Hematocrit 42.5 % (37-47); Hemoglobin 14.4 g/dL (12.0-15.0); Lymphocyte # 1.98 X10^3/ul (0.83-4.51); Lymphocyte % 22.4 % (19-41); Mean Corp Hgb Conc 33.9 g/dL (32-36); Mean Corpuscular Hgb 30.5 pg (27.0-32.0); Monocyte% 5.7 % (0-10); NRBC Flagged by Analyzer 0 % (0-5); Neutrophil # 6.06 X10^3/uL (2.7-7.7); Neutrophil % 68.6 % (47-70); Platelet Count 234 K/mm3 (150-450); RBC Distribution Width CV 14.4 % (11.6-14.6); RBC Distribution Width SD 48.1 fl (35.1-43.9); Red Blood Count 4.72 M/mm3 (4.2-5.4); White Blood Count 8.8 K/mm3 (4.4-11.0)
[2025-05-09 11:58] LABS: Erythrocyte Sedimentation Rate 16 mm/hr (0-30)
[2025-05-09 13:28] LABS: ALB/GLOB Ratio 1.4 RATIO (0.9-2.4); AST(SGOT) 16 U/L (<=31); Alanine Aminotransfer ALT/SGPT 9 U/L (<=34); Alkaline Phosphatase 123 U/L (35-104); Anion Gap 10 (5-15); BUN 14 mg/dL (4-19); BUN/Creat Ratio 15.9 RATIO (10-20); Calcium,Total 9.2 mg/dL (7.6-11.0); Carbon Dioxide 25.6 mmol/L (21.0-32.0); Chloride 97 mmol/L (98-108); Creatinine, Serum 0.86 mg/dL (0.70-1.20); EST Glomerular Filtration Rate 74 (>60); Globulin 2.9 g/dL (2.2-4.2); Glucose 418 mg/dL (70-99); Potassium 4.7 mmol/L (3.3-5.1); Protein, Total 6.9 g/dL (5.9-8.4); Sodium Level 132 mmol/L (133-145); Total Bilirubin 0.52 mg/dL (0.00-1.30)
[2025-05-09 13:37] LABS: CRP < 3.00 mg/L (0.0-3.0)
== END | disposition home or self-care (01) ==
LOC: LAB 11:18
PROVIDERS: PCP Family Medicine; Referring Provider Student in an Organized Health Care Education/Training Program; Visit Provider Student in an Organized Health Care Education/Training Program
DX: K76.0 Fatty (change of) liver, not elsewhere classified (principal); K52.9 Noninfective gastroenteritis and colitis, unspecified; D64.9 Anemia, unspecified
CPT/HCPCS: 36415; 80053; 85025; 85652; 86140

== ENCOUNTER → 2025-08-13 | Outpatient (CLI) | payer MEDICARE, MEDICAID, SELFPAY ==
[2025-08-13 15:49] LABS: Hematocrit 42.4 % (37-47); Hemoglobin 13.9 g/dL (12.0-15.0); Immature Granulocytes Count 0.020 X10^3/uL (0.0-0.0); Mean Corp Hgb Conc 32.8 g/dL (32-36); Mean Corpuscular Volume 89.3 fL (81-99); Mean Platelet Vol. 8.9 fl (6.2-12.0); NRBC Flagged by Analyzer 0 % (0-5); Platelet Count 287 K/mm3 (150-450); RBC Distribution Width CV 14.5 % (11.6-14.6); RBC Distribution Width SD 47.7 fl (35.1-43.9); Red Blood Count 4.75 M/mm3 (4.2-5.4); White Blood Count 6.5 K/mm3 (4.4-11.0)
[2025-08-13 18:20] LABS: AST(SGOT) 16 U/L (<=31); Alanine Aminotransfer ALT/SGPT 7 U/L (<=34); Albumin, Serum 4.0 g/dL (3.4-4.8); Alkaline Phosphatase 120 U/L (35-104); Anion Gap 11 (5-15); BUN 7 mg/dL (4-19); BUN/Creat Ratio 8.1 RATIO (10-20); CORTISOL PM 8.26 ug/dL (2.68-10.50); Calcium,Total 9.2 mg/dL (7.6-11.0); Carbon Dioxide 26.3 mmol/L (21.0-32.0); Chloride 99 mmol/L (98-108); Ferritin 123 ng/mL (22-378); Globulin 3.3 g/dL (2.2-4.2); Glucose 183 mg/dL (70-99); Iron 61 ug/dL (50-170); Potassium 4.8 mmol/L (3.3-5.1); Vitamin B12 563 pg/mL (180-914)
--- OUTSIDE RECORDS SUMMARY | 2025-08-13 23:36 | XMS RPT_ITS | CCD ---
Author Organization [facility] Care Team Providers Care Manager Long Term Care Name Role Phone Juan JoséJonatan bright Unavailable Unavailable JUAN JOSÉJONATAN Unavailable Unavailable JUAN JOSÉ JONATAN Looney Unavailable Unavailable DEBBIE ARCHIBALD Unavailable UnavailTYREL Lechuga Unavailable Unavail able STEWART FELICIANO Unavailable UnavailDr. David Lechuga Primary Care Provider [phone] Dr. David Sy Referring Provider Bayron COLOR CONTROL OPERATOR, COLOR CONTROL OPERATOR-C Casi Attending Provider Bayron COLOR CONTROL OPERATOR, COLOR CONTROL OPERATOR-C Casi Referring Provider Bayron COLOR CONTROL OPERATOR, COLOR CONTROL OPERATOR-C Casi Other Provider [phone] Dr. Chase Mancilla Attending Provider Dr. Ye Olson Attending Provider Neisha Arredondo Attending Provider Unavailable Dr. David Sy Other Provider Dr. Kelvin Foster Attending Provider Dr. Chase Mancilla Referring Provider [phone] Chase Mancilla Other Provider Paula WEINER, COLOR CONTROL OPERATOR-C Jasbir Kellogg Attending Provider Dr. David Sy Primary Care Provider [phone] Dr. David Sy Referring Provider Dr. Dvaid Sy Primary Care Provider [phone] Neisha Arredondo Attending Provider Unavailable Dr. David Sy Referring Provider Dr. David Sy Other Provider [phone] Dr. Kelvin Foster Attending Provider Dr. Chase Mancilla Referring Provider Dr. Chase Mancilla Other Provider Paula COLOR CONTROL OPERATOR, COLOR CONTROL OPERATOR-C Jasbir Kellogg Attending Provider Bayron COLOR CONTROL OPERATOR, COLOR CONTROL OPERATOR-C Casi Attending Provider Dr. Charlie Corcoran Attending Provider [phone] Dr. David Sy Primary Care Provider Dr. David Sy Referring Provider Marguerite Torres Attending Provider Unavailable Dr. David Sy Primary Care Provider Dr. David Sy Referring Provider Bayron COLOR CONTROL OPERATOR, REGINE-C Casi Attending Provider Dr. Charlie Corcoran Attending Provider [phone] Marguerite Torres Attending Provider Unavailable Dr. Gamaliel Young Attending Provider [phone] Dr. David Sy Primary Care Provider Dr. David Sy Referring Provider Dr. David Sy Primary Care Provider Dr. David Sy Referring Provider Dr. Charlie Corcoran Attending Provider [phone] Bayron WEINER, REGINE-Milton Lance Attending Provider Dr. Ye Olson Attending Provider [phone] Dr. Ye Olson Referring Provider Dr. Charlie Corcoran Other Provider [phone] David Sy Primary Care Provider Dr. David Sy Referring Provider Dr. Charlie Corcoran Attending Provider [phone] Dr. Mely Hou Attending Provider Bayron COLOR CONTROL OPERATOR, COLOR CONTROL OPERATOR-C Casi Referring Provider Tyrel Sy MD Primary Care Provider Ye Oquendo Unavailable Yossi, Dr. Hernandez Primary Care Provider [phone] Yossi, Dr. Hernandez Referring Provider Friend, Dr. Guerra Attending Provider Dr. David Sy Primary Care Provider Yossi, Dr. Hernandez Referring Provider Friend, Dr. Guerra Attending Provider Tyrel Sy MD Primary Care Provider Yossi, Dr. Hernandez Primary Care Provider Yossi, Dr. Hernandez Referring Provider Friend, Dr. Guerra [facility]ending [facility] Attending Provider Yossi, Dr. Hernandez Primary Care Provider Friend, Dr. Guerra Attending Provider Yossi, Dr. Hernandez Referring Provider Tyrel Sy MD Primary Care Provider DEYANIRA REILLY Referring Unavailable TYREL SY Primary Care Unavailabl e TYREL SY Primary Care Unavailabl e ISIS BEST Referring Unavailable JESSICA SYER Dora Primary Care Unavailabl e ISIS BEST Attending Unavailable YOSSI, JESSICAER B Primary Care Unavailabl e ZHANE, DEDE Attending Unavailable DEYANIRA REILLY Referring Unavailable TYREL SY B Primary Care Unavailabl e DEYANIRA REILLY Admitting Unavailable DEYANIRA REILLY Attending Unavailable YOSSI, TYREL B Primary Care Unavailabl e ZHANE, DEDE Attending Unavailable YOSSI, JESSICAER Dora Primary Care Unavailabl e ISIS LEWIS E Attending Unavailable DEYANIRA REILLY Attending Unavailable ISIS LEWIS E Referring Unavailable YOSSI, TYREL B Primary Care Unavailabl e ZHANE, DEDE Attending Unavailable RANNEY, CHRISTOPHER B Primary Care Unavailabl e ZHANE, DEDE Referring Unavailable RANNEY, CHRISTOPHER B Primary Care Unavailabl e DANE REILLYEN Attending Unavailable RANNEY, CHRISTOPHER B Primary Care Unavailabl e RANNEY, CHRISTOPHER B Primary Care Unavailabl e DEBBIE, ISIS E Referring Unavailable RANNEY, CHRISTOPHER B Primary Care Unavailabl e DEBBIE, ISIS E Referring Unavailable RANREJI, CHRISTOPHER B Primary Care Unavailabl e DEBBIE, ISIS E Referring Unavailable RANNEY, CHRISTOPHER B Primary Care Unavailabl e RANNEY, CHRISTOPHER B Primary Care Unavailabl e TOMMIE, DEYANIRA Referring Unavailable RANNEY, CHRISTOPHER B Primary Care Unavailabl e ZHANE, DEDE Referring Unavailable Yossi ROWAN, Dr. Dewitt Primary Care Provider Omid ROWAN, Dr. Jorgensen Attending Provider Omid ROWAN, Dr. Jorgensen Referring Provider Yossi ROWAN, Dr. Dewitt Referring Provider Brett ROWAN, Dr. Shah Attending Provider [phone] Brett ROWAN, Dr. Shah Referring Provider [phone] Katelynn Aguilar Attending Provider Yossi ROWAN, Dr. Dewitt Other Provider [phone] Katelynn Aguilar Referring Provider Nikko Berg Consulting Unavailable Ranney, Christopher Primary Care Unavailable Nikko Berg Admitting Unavailable Nikko Berg Attending Unavailable Misbahney, Christopher Primary Care Unavailable Pablo West Referring Unavailable Pablo West Attending Unavailable Ranney, Christopher Primary Care Unavailable Ranney, Christopher Referring Unavailable Ranney, Christopher Attending Unavailable Randi Iverson Attending Unavailable Randi Iverson Consulting Unavailable Katelynn Key Attending Unavailable Ranney, Christopher Primary Care Unavailable Ranney, Christopher Referring Unavailable Ranney, Christopher Primary Care Unavailable Pablo West Attending Unavailable Ranney, Christopher Referring Unavailable Katelynn Key Attending Unavailable Ranney, Christopher Primary Care Unavailable Ranney, Christopher Referring Unavailable Ranney, Christopher Primary Care Unavailable Ranney, Christopher Referring Unavailable Pablo West Attending Unavailable Ranney, Christopher Primary Care Unavailable Ranreji, Christsyer Referring Unavailable Jameel Anne Attending Unavailable Friend, Charlie Attending Unavailable [facility] Unavailable Randi Iverson Referring Unavailable Friend, Charlie Attending Unavailable Randi Iverson Referring Unavailable Ranney, Christopher Primary Care Unavailable Jameel Anne Referring Unavailable Jameel Anne Attending Unavailable Katelynn Key Referring Unavailable Katelynn Key Attending Unavailable Ranreji, Christsyer Consulting Unavailable Ranney, Christopher Primary Care Unavailable Ranney, Christopher Primary Care Unavailable Vonnie COLOR CONTROL OPERATOR, Suze Referring Unavailable Vonnie COLOR CONTROL OPERATOR, Suze Attending Unavailable Steven Pringle Attending Unavailable [facility]available Nikko Berg Admitting Unavailable [facility], [facility] Unavailable Randi Iverson Attending Unavailable Nikko Berg Consulting Unavailable Allergies Allergy Classification Reported Allergen(s) Allergy Type Date of Onset Reaction(s) Facility (20 sources) Codeine; Translations: [CODEINE] Drug Allergy GI Upset, Unknown [facility] (20 sources) Cortisone; Translations: [CORTISONE] Drug Allergy Other [facility] (20 sources) Desvenlafaxine; Translations: [desvenlafaxine succinate] Drug Allergy Other [facility] (20 sources) FLUoxetine; Translations: [FLUOXETINE HCL] Drug Allergy Other: See Comments [facility] (20 sources) fluticasone; Translations: [fluticasone propionate] Drug Allergy Hives [facility] (20 sources) gabapentin; Translations: [GABAPENTIN] Drug Allergy Intolerance [facility] (20 sources) hydroCHLOROthiazide; Translations: [HYDROCHLOROTHIAZIDE] Drug Allergy Vomiting [facility] (20 sources) HYDROcodone; Translations: [HYDROCODONE BITARTRATE] Drug Allergy GI Upset [facility] (20 sources) Lisinopril; Translations: [LISINOPRIL] Drug Allergy Other: See Comments [facility] (20 sources) Losartan; Translations: [LOSARTAN] Drug Allergy Other: See Comments [facility] (20 sources) Mometasone Drug Allergy [facility] (20 sources) oxyCODONE; Translations: [OXYCODONE HCL] Drug Allergy Other: See Comments [facility] (20 sources) Penicillins; Translations: [PENICILLINS] Allergy to substance [facility] (20 sources) pioglitazone; Translations: [PIOGLITAZONE HCL] Drug Allergy Other: See Comments [facility] (20 sources) Propoxyphene; Translations: [propoxyphene napsylate] Drug Allergy Vomiting [facility] (20 sources) SITagliptin; Translations: [sitagliptin phosphate] Drug Allergy [facility] (20 sources) Sulfonamides (Antibiotic); Translations: [SULFA (SULFONAMIDE ANTIBIOTICS)] Allergy to substance Hiv, Anaphylaxis [facility] (20 sources) tiZANidine; Translations: [TIZANIDINE] Drug Allergy [facility] (20 sources) traMADol; Translations: [TRAMADOL] Drug Allergy Vomiting [facility] (20 sources) venlafaxine; Translations: [venlafaxine HCl] Drug Allergy [facility] (18 sources) Acetaminophen / oxyCODONE; Translations: [OXYCODONE-ACETAMINOPH EN] Drug Allergy 013 GI Upset [facility] (18 sources) Adhesive Tape; Translations: [ADHESIVE TAPE (ROSINS)] Allergy to substance Rash [facility] Work Phone: (18 sources) atorvastatin; Translations: [ATORVASTATIN] Drug Allergy [facility] (18 sources) atorvastatin; Translations: [ATORVASTATIN CALCIUM] Drug Allergy Other: See Comments [facility] Work Phone: (18 sources) clopidogrel; Translations: [CLOPIDOGREL] Drug Allergy 02-25-[address] [facility] (18 sources) clopidogrel; Translations: [CLOPIDOGREL BISULFATE] Drug Allergy 016 Diarrhea, Vomiting [facility] (18 sources) Glucocorticoid preparation; Translations: [CORTICOSTEROIDS (GLUCOCORTICOIDS)] Drug Intolerance 013 GI Upset [facility] Work Phone: (18 sources) Metoprolol; Translations: [METOPROLOL] Drug Allergy 019 Diarrhea [facility] Work Phone: [phone] (18 sources) oxyCODONE; Translations: [OXYCODONE] Drug Allergy 019 Intolerance [facility] (18 sources) pioglitazone; Translations: [PIOGLITAZONE] Drug Allergy 019 GI Upset [facility] (18 sources) Seasonal allergy; Translations: [SEASONAL ALLERGIES] Allergy to substance 013 Other: See Comments [facility] (18 sources) SITagliptin; Translations: [SITAGLIPTIN] Drug Allergy 011 Other: See Comments [facility] Work Phone: (18 sources) venlafaxine; Translations: [VENLAFAXINE ANALOGUES] Drug Allergy 011 Shortness of Breath [facility] Work Phone: (18 sources) Propoxyphene N-Acetaminophen; Translations: [PROPOXYPHENE N-ACETAMINOPHEN] Propensity to adverse reactions 006 Hives [facility] (1 source) Codeine Drug Allergy [facility] Rep[facility] (1 source) Cortisone Drug Allergy [address] [facility] (1 source) gabapentin Drug Allergy [address] [facility] (1 source) hydroCHLOROthiazide Drug Allergy [facility] (1 source) Lisinopril Drug Allergy [facility] (1 source) Losartan Drug Allergy [facility] (1 source) Mometasone Drug Allergy [facility] (1 source) tiZANidine Drug Allergy [facility] (1 source) traMADol Drug Allergy [facility] Medications Current Medications Medication Drug Class(es) Dates Sig (Normalized) Sig (Original) aspirin 81 mg delayed release oral tablet (20 sources) Platelet Aggregation Inhibitor, Nonsteroidal Anti-inflammatory Drug Start: 03-04-2017 take 1 tablet by mouth once daily aspirin, enteric coated (ECOTRIN LOW STRENGTH) 81 mg EC tablet Take 1 tablet by mouth once daily. 0 03/04/2017 Active Start: 01-25-2016 take 1 tablet by adolfo th once daily Aspirin 81 MG tablet,chewable Active 81 mg PO DAILY@0800 January 25, 2016 1:00am Comment on above: Take 1 tablet by adolfo th once daily. atorvastatin 80 mg oral tablet (20 sources) HMG-CoA Reductase Inhibitor Start: 2 take 1 tablet by mouth once daily Atorvastatin 80 mg tablet Active 80 mg PO daily 90 May 07, 2022 11:57am Start: 12-03-2017 End: 05-07-2022 take 1 tablet by mouth once daily Atorvastatin 40 mg tablet Discontinued 40 mg PO daily December 03, 2017 1:00am May 07, 2022 11:57am Comment on above: TAKE 1 TABLET BY ADOLFO TH ONCE DAILY Take 1 tablet by adolfo th every afternoon. escitalopram 20 mg oral tablet (20 sources) Serotonin Reuptake Inhibitor Start: 1 take 1 tablet by mouth once daily Escitalopram Oxalate 20 mg tablet Active 20 mg PO DAILY November 06, 2021 1:00am Start: 12-19-2019 End: 11-06-2021 take 2 tablets by mouth once daily Escitalopram Oxalate 10 mg tablet Discontinued 20 mg PO daily December 19, 2019 4:27pm November 06, 2021 12:06pm Start: 12-19-2019 End: 11-06-2021 take 20 mg by mouth once daily Escitalopram Oxalate Di scontinued 20 MG PO daily December 19, 2019 4:27pm November 06, 2021 12:06pm Start: 12-03-2017 End: 12-19-2019 take 1 tablet by mouth once daily Escitalopram Oxalate 10 mg tablet Discontinued 10 mg PO daily December 03, 2017 1:00am December 19, 2019 4:28pm Comment on above: Take 10 mg by mouth once daily. Take 20 mg by mouth every morning. fluconazole 100 mg oral tablet (2 sources) Azole Antifungal Start: 4 take 1 tablet by mouth once daily Fluconazole 100 mg Tablet Active 100 mg PO DAILY November 07, 2024 1:00am 3 ml insulin glargine 100 unt/ml pen injector (2 sources) Insulin Analog Start: 5 Insulin Glargine (Lantus Solostar U-100 Insulin) 100 unit/mL (3 mL) insulin pen Active 10 U SC AT BEDTIME May 09, 2025 12:00am isosorbide dinitrate 30 mg oral tablet (19 sources) Nitrate Vasodilator Start: 2 take 1 tablet by mouth once daily Isosorbide Dinitrate 30 mg tablet Active 30 mg PO DAILY August 12, 2022 12:00am allow nitrate-free interval of 12-14 hrs per 24-hr period Start: 08-12-2022 take 30 mg by mouth twice daily Isosorbide Dinitrate Active 30 MG PO TWICE A DAY August 12, 2022 12:00am allow nitrate-free interval of 12-14 hrs per 24-hr period iv contrast (will be provided with radiology [...] link. 1 Each 0 10/19/2023 10/20/2023 Active Comment on above: CTA Head/Neck W No IV access, insert tesfaye ine lock prior to the sedation, infusion, injection for imaging exam. Discontinue saline lock post exam. If Pt. has a central line or IVAD, may access for administration according to line specific nursing protocol. Once exam is complete flush line and de-access according to line specific nursing protocol in the [place] contrast administration guidelines link. linagliptin 5 mg oral tablet (20 sources) Dipeptidyl Peptidase 4 Inhibitor Start: 03-13-2019 End: 07-24-2020 take 1 tablet by mouth once daily Tradjenta Discontinued 1 TABLET PO DAILY March 13, 2019 6:37pm July 24, 2020 3:01pm Start: 03-13-2019 End: 07-24-2020 take 5 mg by mouth once daily Tradjenta 5 MG Discontin ued 1 {tbl} PO DAILY March 13, 2019 12:00am July 24, 2020 3:01pm Start: 03-13-2019 End: 07-24-2020 take 1 tablet by mouth once daily Tradjenta Discontinued 1 TABLET PO DAILY March 12, 2019 11:00pm July 24, 2020 2:01pm Start: 03-13-2019 End: 07-24-2020 take 1 tablet by mouth once daily Tradjenta Discontinued 1 TABLET PO DAILY March 13, 2019 12:00am July 24, 2020 3:01pm Comment on above: Take 5 mg by mouth o nce daily. 24 hr metoprolol succinate 50 mg extended release oral tablet (20 sources) beta-Adrenergic Gale Start: 10-17-2023 take 1 tablet by mouth every hour metoprolol succinate ER (TOPROL XL) 50 mg 24 hr tablet Take 1 tablet by mouth every afternoon. 0 10/17/2023 Active Start: 01-21-2023 take 1 tablet by adolfo th once daily Metoprolol Succinate 50 mg tablet extended release 24 hr Active 50 mg PO DAILY January 21, 2023 4:04pm Start: 08-07-2022 End: 01-21-2023 take 1 tablet by mouth once daily Metoprolol Succinate 25 mg tablet extended release 24 hr Discontinued 25 mg PO DAILY August 07, 2022 12:00am January 21, 2023 4:06pm Comment on above: Take 1 tablet by adolfo th every afternoon. mirtazapine 15 mg oral tablet (16 sources) Start: 0 take 15 mg by mouth once daily Mirtazapine Active 15 MG PO DAILY July 24, 2020 12:00am nitroglycerin 0.4 mg sublingual tablet (20 sources) Nitrate Vasodilator Start: 0 Nitroglycerin 0.4 mg tablet, sublingual Active 0.4 mg SL every 5 to 15 minutes as needed for chest pain November 26, 2020 1:00am do not exceed 3 doses per episode Start: 11-26-2020 Nitroglycerin Active 0.4 MG SL every 5 to 15 minutes November 26, 2020 1:00am do not exceed 3 doses per episode Start: 04-03-2019 End: 09-03-2023 nitroglycerin sublingual (NI TROQUICK) 0.4 mg SL tablet Dissolve 1 tablet under the tongue as needed. FOR CHEST PAIN. IF NO RELIEF CALL 911 25 tablet 3 09/03/2023 Active Comment on above: Dissolve 1 tablet un alexandrea the tongue as needed. FOR CHEST PAIN. IF NO RELIEF CALL 911 nystatin 302093 unt/ml oral suspension (2 sources) Polyene Antifungal Start: 4 take 720559 [IU] by mouth four times daily Nystatin 100,000 unit/mL Suspension Active 404868 U PO 4 TIMES DAILY 224 November 07, 2024 1:00am perflutren lipid microspheres 1.3 mL in NaCl (PF) 0.9% 10 mL injection (DEFINITY) (16 sources) Start: 3 End: 5 perflutren lipid microspheres 1.3 mL in NaCl (PF) 0.9% 10 mL injection (DEFINITY) 125 ml sodium chloride 9 mg/ml prefilled syringe (16 sources) Start: 3 End: 5 sodium chloride 0.9 % (flush) 10 mL (BD POSIFLUSH) sucralfate 1000 mg oral tablet (2 sources) Aluminum Complex Start: 4 take 1 tablet by mouth twice daily Sucralfate (Carafate) 1 gram tablet Active 1 g PO TWICE A DAY June 22, 2024 12:00am Completed/Discontinued Medications Medication Drug Class(es) Dates Sig (Normalized) Sig (Original) acetaminophen 500 mg oral tablet (6 sources) Start: 03-14-2021 take 2 tablets by mouth every six hours acetaminophen (TYLENOL) 500 mg tablet Take 2 tablets by mouth every 6 hours. 50 tablet 0 03/14/2021 Active Comment on above: Take 2 tablets by [facility] every 6 hours. atropine sulfate 0.025 mg / diphenoxylate hydrochloride 2.5 mg oral tablet (8 sources) Anticholinergic, Cholinergic Muscarinic Antagonist, Antidiarrheal Start: 05-24-2023 End: 05-12-2024 Diphenoxylate-Atropi ne (Lomotil) 2.5-0.025 mg tablet Discontinued 1 {tbl} PO TWICE A DAY as needed for diarrhea May 24, 2023 12:00am May 12, 2024 9:59am Blood Pressure Monitor kit (11 sources) Start: 08-25-2019 Blood Pressure Monitor kit Check home blood pressure and heart rate daily. 1 Kit 0 08/25/2019 Active Comment on above: Check home blood pre ssure and heart rate daily. cholecalciferol 0.025 mg oral tablet (20 sources) Vitamin D Start: 03-14-2019 take 1 tablet by mouth once daily cholecalciferol (VITAMIN D3) 1,000 unit tab tablet Take 1,000 Units by mouth once daily. 0 03/14/2019 Active Start: 03-14-2019 take 2000 [IU] by [facility] once daily Cholecalciferol (Vitamin D3) Active 2000 UNIT PO DAILY March 14, 2019 12:00am Comment on above: Take 1,000 Units by mouth once daily. ezetimibe 10 mg oral tablet (20 sources) Dietary Cholesterol Absorption Inhibitor Start: 2 End: 4 take 1 tablet by mouth once daily Ezetimibe (Zetia) 10 mg tablet Discontinued 10 mg PO DAILY April 12, 2024 10:08am November 02, 2024 1:38pm Comment on above: Take 1 tablet by adolfo every afternoon. famotidine 20 mg oral tablet (20 sources) Histamine-2 Receptor Antagonist Start: 4 famotidine (PEPCID) 20 mg tablet Take by mouth once daily. 0 11/29/2023 Active Start: 05-24-2023 End: 04-13-2025 take 1 tablet by mouth twice daily Famotidine 20 mg tablet Discontinued 20 mg PO TWICE A DAY 120 October 03, 2024 4:58pm April 13, 2025 10:11am Comment on above: Take by mouth once d aily. ferrous fumarate 324 mg oral tablet (20 sources) Start: 9 End: 9 take 1 tablet by mouth twice daily Ferrous Fumarate 324 MG tablet Discontinued 324 mg PO TWICE A DAY 60 January 10, 2019 1:00am January 10, 2019 3:12pm take with [place] juice on an empty stomach. ferrous gluconate 324 mg oral tablet (6 sources) Start: 1 take 1 tablet by mouth twice daily Ferrous Gluconate (FERGON) 324 mg (38 mg iron) tablet Take 1 tablet by mouth twice daily. 0 04/21/2021 Active Comment on above: Take 1 tablet by adolfo th twice daily. glimepiride 4 mg oral tablet (20 sources) Sulfonylurea Start: 9 End: 4 take 1 tablet by mouth once daily Glimepiride 4 mg tablet Discontinued 4 mg PO DAILY July 24, 2020 3:01pm November 06, 2024 4:44pm Comment on above: Take 4 mg by mouth d aily with breakfast. ibuprofen 400 mg oral tablet (1 source) Nonsteroidal Anti-inflammatory Drug Start: 1 End: 3 take 1 tablet by mouth every six hours as needed ibuprofen (MOTRIN) 400 mg tablet Take 1 tablet by mouth every 6 hours as needed for Pain. 30 tablet 0 03/14/2021 09/03/2023 Discontinued (Patient chooses alternative therapy) Comment on above: Take 1 tablet by adolfo th every 6 hours as needed for Pain. 3 ml insulin detemir 100 unt/ml pen injector (20 sources) Insulin Analog Start: 0 End: 1 Insulin Detemir U-100 100 unit/mL (3 mL) insulin pen Discontinued 45 U SC AT BEDTIME November 26, 2020 11:27am November 06, 2021 12:04pm Start: 07-24-2020 End: 11-26-2020 Insulin Detemir U-100 100 un it/mL (3 mL) insulin pen Discontinued mL SC July 24, 2020 12:00am November 26, 2020 11:27am Comment on above: Inject 46 Units subc utaneously daily at bedtime. 24 hr isosorbide mononitrate 30 mg extended release oral tablet (11 sources) Nitrate Vasodilator Start: take 1 tablet by mouth once daily isosorbide mononitrate ER (IMDUR) 30 mg 24 hr tablet Take 1 tablet by mouth once daily. 30 tablet 11 08/25/2019 Active Comment on above: Take 1 tablet by adolfo th once daily. loperamide hydrochloride 2 mg oral tablet (2 sources) Opioid Agonist Start: End: take 1 tablet by mouth every six hours as needed Loperamide (Anti-Diarrheal (Loperamide)) 2 mg tablet Discontinued 2 mg PO EVERY 6 HOURS as needed for loose stool May 12, 2024 12:00am November 06, 2024 4:45pm magnesium hydroxide 80 mg/ml oral suspension (6 sources) Start: take 30 mL by mouth every six hours as needed magnesium hydroxide (MOM) 400 mg/5 mL suspension Take 30 mL by mouth every 6 hours as needed. 0 03/14/2021 Active Comment on above: Take 30 mL by mouth every 6 hours as needed. mesalamine 500 mg extended release oral tablet (16 sources) Aminosalicylate Start: End: take 2 capsules by mouth twice daily Mesalamine 500 mg capsule, extended release Discontinued 1000 mg PO TWICE A DAY 120 2022 1:00am January 21, 2023 3:15pm Start: 2022 End: 01-21-2023 take 1000 mg by mouth twice daily Mesalamine Discontinued 1000 MG PO TWICE A DAY 2022 12:00am January 21, 2023 2:15pm Start: 2022 End: 01-21-2023 take 1000 mg by mouth twice daily Mesalamine Discontinued 1000 MG PO TWICE A DAY 2022 1:00am January 21, 2023 3:15pm Start: 2022 take 1000 mg by mout h twice daily Mesalamine Active 1000 MG PO TWICE A DAY 2022 12:00am metFORMIN hydrochloride 1000 mg oral tablet (2 sources) Biguanide Start: 11-07-2024 End: 05-09-2025 take 1 tablet by mouth twice daily Metformin 1,000 mg tablet Discontinued 1000 mg PO TWICE A DAY 60 November 07, 2024 1:00am May 09, 2025 10:49am omeprazole 40 mg delayed release oral capsule (20 sources) Proton Pump Inhibitor Start: 08-12-2022 End: 05-24-2023 take 1 capsule by mouth once daily Omeprazole 40 mg capsule,delayed release(DR/EC) Discontinued 40 mg PO DAILY August 12, 2022 12:00am May 24, 2023 1:50pm Start: 12-29-2017 End: 06-25-2021 take 2 tablets by mouth once daily Omeprazole Magnesium 20 MG tablet,delayed release (DR/EC) Discontinued 40 mg PO DAILY December 29, 2017 1:00am June 25, 2021 2:29pm Start: 12-29-2017 End: 06-25-2021 take 40 mg by mouth once daily Omeprazole Magnesium Di scontinued 40 MG PO DAILY December 29, 2017 1:00am June 25, 2021 2:29pm Comment on above: Take 40 mg by mouth once daily. 12 hr ranolazine 1000 mg extended release oral tablet (20 sources) Anti-anginal Start: 04-21-2023 End: 04-13-2025 take 1 tablet by mouth once daily Ranolazine 1,000 mg tablet extended release 12 hr Discontinued 1000 mg PO DAILY 180 January 17, 2024 11:27am April 13, 2025 2:15pm Start: 10-13-2022 End: 04-21-2023 take 1 tablet by mouth twice daily Ranolazine 1,000 mg tablet extended release 12 hr Discontinued 1000 mg PO TWICE A DAY 180 January 11, 2023 4:01pm April 21, 2023 3:09pm Start: 05-07-2022 End: 10-13-2022 take 1 tablet by mouth once daily Ranolazine 1,000 mg tablet extended release 12 hr Discontinued 1000 mg PO DAILY July 21, 2022 4:27pm October 13, 2022 1:05pm Start: 05-07-2022 End: 07-21-2022 take 1 tablet by mouth every twelve hours Ranolazine 1,000 mg tablet extended release 12 hr Discontinued 1000 mg PO ONCE May 07, 2022 11:49am July 21, 2022 4:27pm Start: 11-06-2021 End: 05-07-2022 take 1 tablet by mouth twice daily Ranolazine 1,000 mg tablet extended release 12 hr Discontinued 1000 mg PO TWICE A DAY 180 December 22, 2021 10:19am May 07, 2022 11:49am Start: 08-08-2020 End: 05-14-2021 take 1 tablet by mouth twice daily Ranolazine 1,000 mg tablet extended release 12 hr Discontinued 0 .ROUTE .COMPLEX 60 November 25, 2020 2:26pm May 14, 2021 1:07pm TAKE 1 TABLET BY MOUTH TWICE DAILY Start: 07-24-2020 End: 08-08-2020 take 1 tablet by mouth twice daily Ranolazine (Ranexa) 500 mg tablet extended release 12 hr Discontinued 500 mg PO TWICE A DAY 60 July 24, 2020 12:00am August 08, 2020 5:41pm Comment on above: Take 1 tablet by adolfo th once daily. 26 ml ustekinumab 5 mg/ml injection (20 sources) Interleukin-12 Antagonist, Interleukin-23 Antagonist Start: 02-08-2023 End: 04-21-2023 Ustekinumab (Stelara) 90 mg/mL syringe Discontinued 90 mg SC every 8 weeks February 08, 2023 12:00am April 21, 2023 3:20pm Start: 02-08-2023 End: 04-21-2023 take 390 mg intravenously once Ustekinumab (Stelara) 1 30 mg/26 mL solution Discontinued 390 mg .Route ONCE February 08, 2023 12:00am April 21, 2023 3:20pm Infuse 390mg IV once. No authorization required Problems Active Problems Problem Classification Problem Date Documented Da te Episodic/Chronic Cancer of bronchus; lung (20 sources) Carcinoma of lung; Translations: [Malignant neoplasm of unspecified part of unspecified bronchus or lung] Onset: 1 02-18-2021 Chronic Comment on above: S/P surgery R VATS f or stage I Squamous cell cancer. CTA in Oct 2024 showed no disease.Clinically no evidence of disease. 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] Onset: 3 09-03-2023 Chronic Conduction disorders (2 sources) Left bundle branch block; Translations: [Left bundle-branch block, unspecified] 11-06-2024 Chronic Coronary atherosclerosis and other heart disease (20 sources) Atherosclerotic heart disease of [place] coronary artery without angina pectoris; Translations: [Coronary atherosclerosis] Onset: 7 Chronic Deficiency and other anemia (1 source) Iron deficiency anemia secondary to blood loss (chronic); Translations: [Anemia due to chronic blood loss] Onset: 4 Chronic Deficiency and other anemia (14 sources) Anemia; Translations: [Anemia, unspecified] 02-05-2023 Episodic Deficiency and other anemia (9 sources) Anemia, unspecified; Translations: [Anemia, unspecified] 04-28-2023 Episodic Deficiency and other anemia (20 sources) Iron deficiency anemia; Translations: [Iron deficiency anemia, unspecified] Onset: 9 04-28-2019 Episodic Comment on above: Ferritin is 202 Deficiency and other anemia (5 sources) Iron deficiency anemia, unspecified; Translations: [Iron deficiency anemia, unspecified] Onset: 9 01-25-2024 Episodic Diabetes mellitus with complications (19 sources) Type II diabetes mellitus uncontrolled; Translations: [Type 2 diabetes mellitus with hyperglycemia] Onset: 8 09-03-2023 Chronic Diabetes mellitus without complication (17 sources) Type 2 diabetes mellitus without complications; Translations: [Diabetes mellitus] Onset: 8 04-28-2019 Chronic Disorders of lipid metabolism (20 sources) Hyperlipidemia; Translations: [Hyperlipidemia, unspecified] Onset: 7 Chronic Esophageal disorders (20 sources) Gastroesophageal reflux disease; Translations: [Gastro-esophageal reflux disease without esophagitis] Onset: 4 11-05-2021 Chronic Comment on above: CONTROLLED WITH MED Esophageal disorders (18 sources) Esophagitis; Translations: [Esophagitis, unspecified] Onset: 0 01-31-2010 Episodic Essential hypertension (20 sources) Essential hypertension; Translations: [Essential (primary) hypertension] Onset: 9 Chronic Heart valve disorders (20 sources) Heart murmur; Translations: [Cardiac murmur, unspecified] 01-21-2023 Episodic Malaise and fatigue (20 sources) Fatigue; Translations: [Other fatigue] Episodic Nausea and vomiting (18 sources) Nausea and vomiting; Translations: [Nausea with vomiting, unspecified] Onset: 0 01-31-2010 Episodic Noninfectious gastroenteritis (20 sources) Colitis; Translations: [Noninfective gastroenteritis and colitis, unspecified] Episodic Occlusion or stenosis of precerebral arteries (20 sources) Right carotid artery stenosis; Translations: [Occlusion and stenosis of right carotid artery] Onset: Chronic Comment on above: Irregular calcific p laque with shadowing at the proximal right internal carotid artery with 50 to69% stenosis 05/22/2022 Osteoarthritis (20 sources) Unspecified osteoarthritis, unspecified site; Translations: [Arthritis of right foot] Onset: 3 08-15-2013 Chronic Other and ill-defined heart disease (1 source) Other ill-defined heart diseases; Translations: [Diastolic dysfunction] Onset: Chronic Other connective tissue disease (1 source) Swelling of limb; Translations: [Other specified soft tissue disorders] 09-03-2023 Episodic Other gastrointestinal disorders (20 sources) Diarrhea; Translations: [Diarrhea, unspecified] Onset: 1 07-31-2022 Episodic Comment on above: Alternating diarrhea /constipation Other gastrointestinal disorders (2 sources) Swallowing painful; Translations: [Dysphagia, unspecified] 11-06-2024 Episodic Other gastrointestinal disorders (3 sources) Esophageal dysphagia; Translations: [Other dysphagia] 11-06-2024 Episodic Other liver diseases (3 sources) Steatosis of liver; Translations: [Fatty (change of) liver, not elsewhere classified] 03-30-2024 Chronic Comment on above: CT on 02/19/2023 show ed fatty liver. Other liver diseases (2 sources) Hepatic fibrosis; Translations: [Hepatic fibrosis] 10-24-2024 Chronic Comment on above: Liver elastography o n 04/12/2024 showed moderate to severe fibrosis. Other liver diseases (1 source) Fatty (change of) liver, not elsewhere classified; Translations: [Fatty (change of) liver, not elsewhere classified] Onset: Chronic Other lower respiratory disease (14 sources) Dyspnea; Translations: [Shortness of breath] 02-05-2023 Episodic Other lower respiratory disease (4 sources) Shortness of breath; Translations: [Shortness of breath] 04-21-2023 Episodic Other lower respiratory disease (1 source) Dyspnea on exertion; Translations: [Other forms of dyspnea] 10-11-2023 Episodic Other nervous system disorders (16 sources) Chronic pain syndrome; Translations: [Chronic pain syndrome] Onset: 3 12-09-2012 Chronic Other non-traumatic joint disorders (16 sources) Arthropathy of multiple joints; Translations: [Arthropathy, unspecified] Onset: 3 12-09-2012 Chronic Regional enteritis and ulcerative colitis (20 sources) Ulcerative colitis; Translations: [Ulcerative colitis, unspecified, without complications] 01-18-2023 Chronic Syncope (20 sources) Near syncope; Translations: [Syncope and collapse] 07-24-2020 Episodic Unclassified (1 source) Acute myocardial infarction, unspecified; Translations: [ACUTE MYOCARDIAL INFARCTION UNSPEC] Onset: 8 Unclassified (1 source) Established Patient Onset: 4 Unclassified (1 source) Hepatic fibrosis, unspecified; Translations: [Hepatic fibrosis, unspecified] Onset: 5 Past or Other Problems Problem Classification Problem Date Documented Da te Episodic/Chronic Abdominal hernia (16 sources) Diaphragmatic hernia; Translations: [Diaphragmatic hernia without obstruction or gangrene] Onset: 01-31-2010 01-31-2010 Episodic Administrative/social admission (16 sources) Discharge status; Translations: [Encounter for administrative examinations, unspecified] Onset: 03-13-2021 03-14-2021 Episodic Coronary atherosclerosis and other heart disease (20 sources) Presence of coronary angioplasty implant and graft; Translations: [Presence of aortocoronary bypass graft] Onset: 04-03-2007 01-21-2023 Episodic Gastritis and duodenitis (16 sources) Acute gastritis; Translations: [Acute gastritis without bleeding] Onset: 01-31-2010 01-31-2010 Episodic Gastrointestinal hemorrhage (2 sources) Hematemesis; Translations: [Hematemesis] Onset: 10-23-2024 06-22-2024 Episodic Hemorrhoids (1 source) First degree hemorrhoids; Translations: [FIRST DEGREE HEMORRHOIDS] Onset: 01-14-2018 Episodic Nonspecific chest pain (20 sources) Finding of region of thorax; Translations: [Other chest pain] Onset: 03-11-2007 Episodic Other aftercare (3 sources) Encounter for follow-up examination after completed treatment for conditions other than malignant neoplasm; Translations: [Other usp (current) drug therapy] Onset: 01-14-2018 Episodic Other and unspecified benign neoplasm (3 sources) Benign neoplasm of transverse colon; Translations: [Benign neoplasm of sigmoid colon] Onset: 01-14-2018 Episodic Other and unspecified benign neoplasm (16 sources) Benign neoplasm of colon; Translations: [Benign neoplasm of colon, unspecified] Onset: 06-11-2011 06-11-2011 Episodic Other connective tissue disease (16 sources) Myofascial pain syndrome; Translations: [Myalgia, other site] Onset: 12-09-2012 12-09-2012 Episodic Other connective tissue disease (16 sources) Adhesive capsulitis of left shoulder; Translations: [Adhesive capsulitis of left shoulder] Onset: 12-21-2012 12-21-2012 Episodic Other connective tissue disease (16 sources) Tear of left rotator cuff; Translations: [Unspecified rotator cuff tear or rupture of left shoulder, not specified as traumatic] Onset: 03-20-2013 03-20-2013 Episodic Other connective tissue disease (16 sources) Adhesive capsulitis of shoulder; Translations: [Adhesive capsulitis of unspecified shoulder] Onset: 05-30-2013 05-30-2013 Episodic Other connective tissue disease (16 sources) Impingement syndrome of left shoulder region; Translations: [Impingement syndrome of left shoulder] Onset: 08-26-2020 08-26-2020 Episodic Other connective tissue disease (1 source) Other specified soft tissue disorders; Translations: [Swelling of limb] Onset: 09-03-2023 Episodic Other gastrointestinal disorders (1 source) Dysphagia, unspecified; Translations: [Dysphagia, unspecified] Onset: 11-07-2024 Episodic Other gastrointestinal disorders (1 source) Other dysphagia; Translations: [Other dysphagia] Onset: 01-12-2025 Episodic Other lower respiratory disease (1 source) Other forms of dyspnea; Translations: [HANCOCK (dyspnea on exertion)] Onset: 10-11-2023 Episodic Other nervous system disorders (16 sources) Acute postoperative pain; Translations: [Other acute postprocedural pain] Onset: 03-13-2021 03-14-2021 Episodic Other non-traumatic joint disorders (16 sources) Pain in left shoulder; Translations: [Pain in joint, shoulder region] Onset: 05-30-2013 08-26-2020 Episodic Other non-traumatic joint disorders (16 sources) Pain in right knee; Translations: [Pain in joint, lower leg] Onset: 01-18-2014 01-18-2014 Episodic Other screening for suspected conditions (not mental disorders or infectious disease) (2 sources) Encounter for screening mammogram for malignant neoplasm of breast; Translations: [Encounter for screening mammogram for malignant neoplasm of breast] Onset: 08-09-2024 Episodic Residual codes; unclassified (1 source) Other specified postprocedural states; Translations: [S/P carotid endarterectomy] Onset: 02-15-2024 Episodic Residual codes; unclassified (1 source) Asymptomatic menopausal state; Translations: [Asymptomatic menopausal state] Onset: 08-09-2024 Episodic Screening or history of mental health and substance abuse (1 source) Personal history of nicotine dependence; Translations: [PERSONAL HISTORY OF NICOTINE DEPEND] Onset: 01-14-2018 Episodic Substance-related disorders (12 sources) Marijuana user; Translations: [Cannabis use, unspecified, uncomplicated] Onset: 01-12-2024 01-12-2024 Episodic Results Test Name Value Interpretation Reference Range Facility Absolute lymphocyte countOrd ered By: Katelynn Key on 05-09-2025 Lymphocytes Auto (Unsp spec) [#/Vol] 1.98 10*3/uL 0.83-4.[address] [facility] Absolute neutrophil countOrd ered By: Katelynn Key on 05-09-2025 Neutrophils (Bld) [#/Vol] 6.1 10*3/uL 2.0-7.[address] [facility] Anion gap in Serum or Plasma Ordered By: Katelynn Key on 05-09-2025 Anion gap [Moles/Vol] 10 mmol/L 5-15 [facility] Automated lymphocyte count a s percentage of total leukocytesOrdered By: Katelynn Key on 05-09-2025 Lymphocytes/100 WBC Auto (Unsp spec) 22.4 % 19-[address] [facility] BUN/creatinine ratioOrdered By: Katelynn Key on 05-09-2025 Urea nitrogen/Creatinine [Mass ratio] 15.9 mg/mg 10-[address] [facility] Basophil percentageOrdered B y: Katelynn Yesi on 05-09-2025 Basophils/100 WBC (Bld) 0.9 % 0-1 [facility] Bilirubin, totalOrdered By: Katelynn Yesi on 05-09-2025 Bilirubin [Mass/Vol] 0.52 mg/dL 0.00-1.30 [facility] CBC W/Diff, Automatedon 04-29-2024 Absolute Lymph 1.98 X10 3/uL Normal 0.83-4.[address] [facility] Comment on above: Performed By: #### L 500.4050, L503.6030, L504.2610, L101.9900, L100.9950, L501.6710, L100.0100, L503.0105 #### [facility] [address] [place], [address] Absolute Neut 6.1 X10 3/uL Normal 2.0-7.[address] [facility] Comment on above: Performed By: #### L 500.4050, L503.6030, L504.2610, L101.9900, L100.9950, L501.6710, L100.0100, L503.0105 #### [facility] [address] [place], [address] Basophils/100 WBC (Bld) 0.9 % Normal 0-1 [facility] Comment on above: Performed By: #### L 500.4050, L503.6030, L504.2610, L101.9900, L100.9950, L501.6710, L100.0100, L503.0105 #### [facility] [address] [place], [address] Eosinophils/100 WBC (Bld) 1.7 % Normal 0-[address] [facility] Comment on above: Performed By: #### L 500.4050, L503.6030, L504.2610, L101.9900, L100.9950, L501.6710, L100.0100, L503.0105 #### [facility] [address] [place], [address] Erythrocyte distribution width (RBC) [Ratio] 14.4 % Normal 11.6-14.[address] [facility] Comment on above: Performed By: #### L 500.4050, L503.6030, L504.2610, L101.9900, L100.9950, L501.6710, L100.0100, L503.0105 #### [facility] [address] [place], [address] Hematocrit (Bld) [Volume fraction] 42.5 % Normal 37-[address] [facility] Comment on above: Performed By: #### L 500.4050, L503.6030, L504.2610, L101.9900, L100.9950, L501.6710, L100.0100, L503.0105 #### [facility] [address] [place], [address] Hemoglobin (Bld) [Mass/Vol] 14.4 g/dL Normal 12.0-15.[address] [facility] Comment on above: Performed By: #### L 500.4050, L503.6030, L504.2610, L101.9900, L100.9950, L501.6710, L100.0100, L503.0105 #### [facility] [address] [place], [address] IG% 0.700 Normal 0.0-0.[address] [facility] Comment on above: Result Comment: IG% - Immature Granulocytes (promyelocytes, myelocytes and metamyelocytes) > 1% indicates that a LEFT SHIFT is Present. Performed By: #### L 500.4050, L503.6030, L504.2610, L101.9900, L100.9950, L501.6710, L100.0100, L503.0105 #### [facility] [address] [place], [address] Lymphocytes/100 WBC (Bld) 22.4 % Normal 19-[address] [facility] Comment on above: Performed By: #### L 500.4050, L503.6030, L504.2610, L101.9900, L100.9950, L501.6710, L100.0100, L503.0105 #### [facility] [address] [place], [address] MCH (RBC) [Entitic mass] 30.5 pg Normal 27.0-32.[address] [facility] Comment on above: Performed By: #### L 500.4050, L503.6030, L504.2610, L101.9900, L100.9950, L501.6710, L100.0100, L503.0105 #### [facility] [address] [place], [address] MCHC (RBC) [Mass/Vol] 33.9 g/dL Normal 32-36 [facility] Comment on above: Performed By: #### L 500.4050, L503.6030, L504.2610, L101.9900, L100.9950, L501.6710, L100.0100, L503.0105 #### [facility] [address] [place], [address] MCV (RBC) [Entitic vol] 90.0 fL Normal 81-99 [facility] Comment on above: Performed By: #### L 500.4050, L503.6030, L504.2610, L101.9900, L100.9950, L501.6710, L100.0100, L503.0105 #### [facility] [address] [place], [address] Monocytes/100 WBC (Bld) 5.7 % Normal 0-10 [facility] Comment on above: Performed By: #### L 500.4050, L503.6030, L504.2610, L101.9900, L100.9950, L501.6710, L100.0100, L503.0105 #### [facility] [address] [place], [address] Neutrophils/100 WBC (Bld) 68.6 % Normal 47-[address] [facility] Comment on above: Performed By: #### L 500.4050, L503.6030, L504.2610, L101.9900, L100.9950, L501.6710, L100.0100, L503.0105 #### [facility] [address] [place], [address] Nucleated RBC (Bld) [#/Vol] 0 10*3/uL Normal 0-[address] [facility] Comment on above: Performed By: #### L 500.4050, L503.6030, L504.2610, L101.9900, L100.9950, L501.6710, L100.0100, L503.0105 #### [facility] [address], [address] Platelet mean volume (Bld) [Entitic vol] 9.0 fL Normal 6.2-12.[address] [facility] Comment on above: Performed By: #### L 500.4050, L503.6030, L504.2610, L101.9900, L100.9950, L501.6710, L100.0100, L503.0105 #### [facility] [address] [place], [address] Platelets (Bld) [#/Vol] 234 10*3/uL Normal 150-[address] [facility] Comment on above: Performed By: #### L 500.4050, L503.6030, L504.2610, L101.9900, L100.9950, L501.6710, L100.0100, L503.0105 #### [facility] [address] [place], [address] RBC (Bld) [#/Vol] 4.72 10*6/uL Normal 4.2-5.4 [facility] Comment on above: Performed By: #### L 500.4050, L503.6030, L504.2610, L101.9900, L100.9950, L501.6710, L100.0100, L503.0105 #### [facility] [address] [place], [address] RDW SD 48.1 fl High 35.1-43.[address] [facility] Comment on above: Performed By: #### L 500.4050, L503.6030, L504.2610, L101.9900, L100.9950, L501.6710, L100.0100, L503.0105 #### [facility] [address] [place], [address] WBC (Bld) [#/Vol] 8.8 10*3/uL Normal 4.4-11.0 [facility] Comment on above: Performed By: #### L 500.4050, L503.6030, L504.2610, L101.9900, L100.9950, L501.6710, L100.0100, L503.0105 #### [facility] [address] [place], [address] CRPon 05-09-2025 C-REACTIVE PROT < 3.00 Normal 0.0-3.[address] [facility] Comment on above: Performed By: #### L 500.4050, L503.6030, L504.2610, L101.9900, L100.9950, L501.6710, L100.0100, L503.0105 #### [facility] [address] [place], [place], [id number] Carbon dioxide, total [Moles /volume] in Central venous bloodOrdered By: Katelynn Key on 05-09-2025 CO2 [Moles/Vol] 25.6 mmol/L 21.0-32.[address] [facility] Chloride assayOrdered By: Nora Key on 05-09-2025 Chloride [Moles/Vol] 97 mmol/L Low 98-108 [facility] Comprehensive Metabolic Prof ilon 05-09-2025 Albumin [Mass/Vol] 4.0 g/dL Normal 3.4-4.8 [facility] Comment on above: Performed By: #### L 500.4050, L503.6030, L504.2610, L101.9900, L100.9950, L501.6710, L100.0100, L503.0105 #### [facility] [address] [place], [place], [id number] Albumin/Globulin [Mass ratio] 1.4 {ratio} Normal 0.9-2.[address] [facility] Comment on above: Performed By: #### L 500.4050, L503.6030, L504.2610, L101.9900, L100.9950, L501.6710, L100.0100, L503.0105 #### [facility] [address] [place], [place], [id number] ALK PHOS 123 U/L High 35-[address] [facility] Comment on above: Performed By: #### L 500.4050, L503.6030, L504.2610, L101.9900, L100.9950, L501.6710, L100.0100, L503.0105 #### [facility] [address] [place], [address] ALT [Catalytic activity/Vol] 9 U/L Normal <=[address] [facility] Comment on above: Performed By: #### L 500.4050, L503.6030, L504.2610, L101.9900, L100.9950, L501.6710, L100.0100, L503.0105 #### [facility] [address] [place], [address] AST [Catalytic activity/Vol] 16 U/L Normal <=[address] [facility] Comment on above: Performed By: #### L 500.4050, L503.6030, L504.2610, L101.9900, L100.9950, L501.6710, L100.0100, L503.0105 #### [facility] [address] [place], [address] Bilirubin [Mass/Vol] 0.52 mg/dL Normal 0.00-1.30 [facility] Comment on above: Performed By: #### L 500.4050, L503.6030, L504.2610, L101.9900, L100.9950, L501.6710, L100.0100, L503.0105 #### [facility] [address] [place], [address] BUN/CRE 15.9 RATIO Normal 10-[address] [facility] Comment on above: Performed By: #### L 500.4050, L503.6030, L504.2610, L101.9900, L100.9950, L501.6710, L100.0100, L503.0105 #### [facility] [address] [place], [address] Calcium [Mass/Vol] 9.2 mg/dL Normal 7.6-11.0 [facility] Comment on above: Performed By: #### L 500.4050, L503.6030, L504.2610, L101.9900, L100.9950, L501.6710, L100.0100, L503.0105 #### [facility] [address] [place], [address] Chloride [Moles/Vol] 97 mmol/L Low 98-108 [facility] Comment on above: Performed By: #### L 500.4050, L503.6030, L504.2610, L101.9900, L100.9950, L501.6710, L100.0100, L503.0105 #### [facility] [address] [place], [address] CO2 [Moles/Vol] 25.6 mmol/L Normal 21.0-32.[address] [facility] Comment on above: Performed By: #### L 500.4050, L503.6030, L504.2610, L101.9900, L100.9950, L501.6710, L100.0100, L503.0105 #### [facility] [address] [place], [address] Creatinine [Mass/Vol] 0.86 mg/dL Normal 0.70-1.20 [facility] Comment on above: Performed By: #### L 500.4050, L503.6030, L504.2610, L101.9900, L100.9950, L501.6710, L100.0100, L503.0105 #### [facility] [address] [place], [address] GAP 10 Normal 5-[address] [facility] Comment on above: Performed By: #### L 500.4050, L503.6030, L504.2610, L101.9900, L100.9950, L501.6710, L100.0100, L503.0105 #### [facility] [address] [place], [place], [id number] (100) GFR/1.73 sq M.predicted among non-blacks MDRD (S/P/Bld) [Vol rate/Area] 74 mL/min/{1.73_m2} Normal >60 [facility] Comment on above: Result Comment: mL/m in/1.73m2 CKD-EPI Creatinine Equation (2020) Performed By: #### L 500.4050, L503.6030, L504.2610, L101.9900, L100.9950, L501.6710, L100.0100, L503.0105 #### [facility] [address] [place], [address] Globulin (S) [Mass/Vol] 2.9 g/dL Normal 2.2-4.2 [facility] Comment on above: Performed By: #### L 500.4050, L503.6030, L504.2610, L101.9900, L100.9950, L501.6710, L100.0100, L503.0105 #### [facility] [address] [place], [address] Glucose [Mass/Vol] 418 mg/dL High 70-99 [facility] Comment on above: Performed By: #### L 500.4050, L503.6030, L504.2610, L101.9900, L100.9950, L501.6710, L100.0100, L503.0105 #### [facility] [address] [place], [address] Potassium [Moles/Vol] 4.7 mmol/L Normal 3.3-5.1 [facility] Comment on above: Performed By: #### L 500.4050, L503.6030, L504.2610, L101.9900, L100.9950, L501.6710, L100.0100, L503.0105 #### [facility] [address] [place], [address] Sodium [Moles/Vol] 132 mmol/L Low 133-145 [facility] Comment on above: Performed By: #### L 500.4050, L503.6030, L504.2610, L101.9900, L100.9950, L501.6710, L100.0100, L503.0105 #### [facility] [address] [place], [place], [id number] (954) T PROT 6.9 g/dL Normal 5.9-8.[address] [facility] Comment on above: Performed By: #### L 500.4050, L503.6030, L504.2610, L101.9900, L100.9950, L501.6710, L100.0100, L503.0105 #### [facility] [address] [place], [address] Urea nitrogen [Mass/Vol] 14 mg/dL Normal 4-[address] [facility] Comment on above: Performed By: #### L 500.4050, L503.6030, L504.2610, L101.9900, L100.9950, L501.6710, L100.0100, L503.0105 #### [facility] [address] [place], [address] Eosinophil percentageOrdered By: Katelynn Key on 05-09-2025 Eosinophils/100 WBC (Bld) 1.7 % 0-[address] [facility] Erythrocyte Sed Rateon 05-09 SED RATE 16 mm/hr Normal 0-[address] [facility] Comment on above: Performed By: #### L 500.4050, L503.6030, L504.2610, L101.9900, L100.9950, L501.6710, L100.0100, L503.0105 #### [facility] [address] [place], [address] Erythrocyte distribution wid th ratioOrdered By: Katelynn Key on 05-09-2025 Erythrocyte distribution width (RBC) [Ratio] 14.4 % 11.6-14.[address] [facility] Erythrocyte distribution wid th standard deviationOrdered By: Katelynn Key on 05-09-2025 Erythrocyte distribution width (RBC) [Ratio] 48.1 fl High 35.1-43.[address] [facility] Erythrocyte sedimentation ra teOrdered By: Katelynn eKy on 05-09-2025 ESR (Bld) [Velocity] 16 mm/h 0-30 [facility] Gastroenterology Visit Repor ton 05-09-2025 Gastroenterology Visit Report [facility] [address] [place] [address] OFFICE VISIT Date of Service: 05/09/25 MR#: [id number] Acct: [id number] Name: KAROLINA CANADA Rep #: [id number] : 1955 Provider: MARIA LUZ Ward Age/Sex: 69/F Location: [facility] [place] Status: Signed Intake Vital Signs 11/07/24 16:33 02/22/25 14:06 Height 5 ft 4 in 5 ft 4 in Intake Visit Reasons: 6 M FU Chief Complaint: diarrhea Allergies codeine Allergy (Verified 02/22/25 14:03) Hives fluticasone propionate (From Flonase) Allergy (Verified 02/22/25 14:03) Hives mometasone furoate (From Nasonex) Allergy (Verified 02/22/25 14:03) Hives Penicillins Allergy (Verified 02/22/25 14:03) Hives sitagliptin phosphate (From Januvia) Allergy (Verified 02/22/25 14:03) Hives Sulfa (Sulfonamide Antibiotics) Allergy (Verified 02/22/25 14:03) Hives tramadol Allergy (Verified 02/22/25 14:03) Hives venlafaxine HCl (From Effexor) Allergy (Verified 02/22/25 14:03) Hives cortisone Adverse Reaction (Verified 02/22/25 14:03) Other desvenlafaxine succinate (From Pristiq) Adverse Reaction (Verified 02/22/25 14:03) Other fluoxetine HCl (From Prozac) Adverse Reaction (Verified 02/22/25 14:03) Vomiting gabapentin (From Neurontin) Adverse Reaction (Verified 02/22/25 14:03) Vomiting hydrochlorothiazide Adverse Reaction (Verified 02/22/25 14:03) Other hydrocodone bitartrate (From Vicodin) Adverse Reaction (Verified 02/22/25 14:03) Vomiting lisinopril Adverse Reaction (Verified 02/22/25 14:03) Other losartan (Losartan) Adverse Reaction (Verified 02/22/25 14:03) Other oxycodone HCl (From OxyContin) Adverse Reaction (Verified 02/22/25 14:03) Other pioglitazone HCl (From Actos) Adverse Reaction (Verified 02/22/25 14:03) Vomiting propoxyphene napsylate (From Darvocet-N) Adverse Reaction (Verified 02/22/25 14:03) Vomiting tizanidine Adverse Reaction (Verified 02/22/25 14:03) Other Medications ???Medication ???Instructions ???Recorded ???Confirmed ???Type aspirin 81 mg chewable tablet 81 mg PO DAILY@0800 heart health 0 01/25/16 02/22/25 History nitroglycerin 0.4 mg sublingual 0.4 mg sublingual Q5-15M PRN chest 11/26/20 02/22/25 Rx tablet pain #25 tabs escitalopram oxalate 20 mg tablet 20 mg PO DAILY 11/06/21 02/22/25 History atorvastatin 80 mg tablet 80 mg PO QDAY cholesterol #90 tabs 05/07/22 02/22/25 Rx isosorbide dinitrate 30 mg tablet 30 mg PO DAILY 08/12/22 02/22/25 History metoprolol succinate 50 mg 50 mg PO DAILY #90 tabs 01/21/23 0 02/22/25 Rx tablet,extended release 24 hr sucralfate 1 gram tablet (Carafate) 1 g PO BID #14 tabs 06/22/24 Rx ezetimibe 10 mg tablet (Zetia) 10 mg PO DAILY #90 tabs 11/02/24 0 02/22/25 Rx fluconazole 100 mg tablet 100 mg PO DAILY #7 tabs 11/07/24 0 02/22/25 Rx nystatin 100,000 unit/mL oral 400,000 unit (4 mL) PO 4X/DAY 14 1 01/08/24 02/22/25 Rx suspension days #224 mL famotidine 20 mg tablet 20 mg PO BID #180 TABLETS 04/13/25 Rx ranolazine 1,000 mg 1,000 mg PO DAILY #90 TABLETS 03/29 05/23 Rx tablet,extended release,12 hr insulin glargine 100 unit/mL (3 10 unit subcut QHS 05/09/25 History mL) subcutaneous pen (Lantus Solostar U-100 Insulin) Have you fallen in the past year?: No Nurse's Note: OV 05/09/25 Pt here for a f/u and reports she is doing well. Reports a bm every day but feels she is starting to experience constipation. Reports abdominal pain. Reports she is swallowing much better since the procedure. Continues famotidine and Carafate. [facility] Medical History Anxiety Myocardial infarct Coronary artery disease DVT (deep venous thrombosis) COPD (chronic obstructive pulmonary disease) Brain fog Migraines Anemia Easy bruising Shortness of breath on exertion Chronic cough Leg cramps History of edema Cardiology follow-up encounter History of stress test Chest pain Gastroparesis Wears glasses Wears dentures Marijuana use Diabetes Arthritis High cholesterol Former smoker History of echocardiogram GERD (gastroesophageal reflux disease) Diarrhea Carcinoma, lung Old inferior wall myocardial infarction (03/03/07) Essential (primary) hypertension Depression Atherosclerotic heart disease of [place] coronary artery without angina pectoris Carotid stenosis, right Iron deficiency RLS (restless legs syndrome) Tubular adenoma of colon History of colonic polyps Hyperlipemia Ventral hernia Nausea Reflux esophagitis Osteoarthritis Surgical History Hx of colonoscopy History of lung surgery (03/2021) History of cardiac catheterization H/O coronary artery bypass surgery (04/03/07) History of coronary artery stent placement (more content not included)... Normal [facility] Glomerular filtration rate ( GFR) estimation/1.73 sq m using serum, plasma, or whole bOrdered By: Katelynn Key on 05-09-2025 GFR/1.73 sq M.predicted among non-blacks MDRD (S/P/Bld) [Vol rate/Area] 74 mL/min/{1.73_m2} >60 [facility] Comment on above: mL/min/1.73m2 CKD-EP I Creatinine Equation (2020) Hematocrit Auto (Bld) [Volum e fraction]Ordered By: Katelynn Key on 05-09-2025 Hematocrit (Bld) [Volume fraction] 42.5 % 37-[address] [facility] Hemoglobin measurementOrdere d By: Katelynn Key on 05-09-2025 Hemoglobin (Bld) [Mass/Vol] 14.4 g/dL 12.0-15.[address] [facility] Immature granulocytes/100 WB C Auto (Bld)Ordered By: Katelynn Key on 05-09-2025 Immature granulocytes/100 WBC (Bld) 0.700 % 0.0-0.[address] [facility] Comment on above: IG% - Immature Granu locytes (promyelocytes, myelocytes and metamyelocytes) > 1% indicates that a LEFT SHIFT is Present. Laboratory - Chemistry and C hemistry - challengeOrdered By: Katelynn Key on 05-09-2025 AST [Catalytic activity/Vol] 16 U/L <[address] [facility] MCV (mean corpuscular volume ) determinationOrdered By: Katelynn Key on 05-09-2025 MCV (RBC) [Entitic vol] 90.0 fL 81-99 [facility] Mean corpuscular hemoglobin (MCH) determinationOrdered By: Katelynn Key on 05-09-2025 MCH (RBC) [Entitic mass] 30.5 pg 27.0-32.[address] [facility] Mean corpuscular hemoglobin concentration (MCHC) determinationOrdered By: Katelynn Key on 05-09-2025 MCHC (RBC) [Mass/Vol] 33.9 g/dL 32-36 [facility] Mean platelet volume determi nationOrdered By: Katelynn Key on 05-09-2025 Platelet mean volume (Bld) [Entitic vol] 9.0 fL 6.2-12.[address] [facility] Monocyte percentageOrdered B y: Katelynn Key on 05-09-2025 Monocytes/100 WBC (Bld) 5.7 % 0-10 [facility] Neutrophil percentageOrdered By: Katelynn Key on 05-09-2025 Neutrophils/100 WBC (Bld) 68.6 % 47-[address] [facility] Nucleated red blood cell per centageOrdered By: Katelynn Key on 05-09-2025 Nucleated RBC/100 WBC (Bld) [Ratio] 0 % 0-[address] [facility] Platelet countOrdered By: Nora Key on 05-09-2025 Platelets (Bld) [#/Vol] 234 10*3/uL 150-[address] [facility] Potassium measurement (mass/ volume)Ordered By: Katelynn Key on 05-09-2025 Potassium (Unsp spec) [Mass/Vol] 4.7 mmol/L 3.3-5.[address] [facility] RBC Auto (Bld) [#/Vol]Ordere d By: Katelynn Key on 05-09-2025 RBC (Bld) [#/Vol] 4.72 10*6/uL 4.2-5.4 [facility] Serum creatinine measurement (mass/volume)Ordered By: Katelynn Key on 05-09-2025 Creatinine [Mass/Vol] 0.86 mg/dL 0.70-1.20 [facility] Serum globulin measurementOr dered By: Katelynn Key on 05-09-2025 Globulin (S) [Mass/Vol] 2.9 g/dL 2.2-4.2 [facility] Serum glucose measurement (m ass/volume)Ordered By: Katelynn Key on 05-09-2025 Glucose [Mass/Vol] 418 mg/dL High 70-99 [facility] Serum or plasma C reactive p rotein measurement (mass/volume)Ordered By: Katelynn Key on 05-09-2025 CRP [Mass/Vol] mg/L 0.0-3.[address] [facility] Serum or plasma alanine jaquez otransferase (ALT) measurementOrdered By: Katelynn Key on 05-09-2025 ALT [Catalytic activity/Vol] 9 U/L <[address] [facility] Serum or plasma albumin baldemar urement (mass/volume)Ordered By: Katelynn Key on 05-09-2025 Albumin [Mass/Vol] 4.0 g/dL 3.4-4.8 [facility] Serum or plasma albumin/glob ulin mass ratioOrdered By: Katelynn Key on 05-09-2025 Albumin/Globulin [Mass ratio] 1.4 {ratio} 0.9-2.[address] [facility] Serum or plasma alkaline kate sphatase measurementOrdered By: Katelynn Key on 05-09-2025 ALP [Catalytic activity/Vol] 123 U/L High 35-[address] [facility] Serum or plasma calcium baldemar urement (mass/volume)Ordered By: Katelynn Key on 05-09-2025 Calcium [Mass/Vol] 9.2 mg/dL 7.6-11.0 [facility] Serum or plasma urea nitroge n measurement (mass/volume)Ordered By: Katelynn Key on 05-09-2025 Urea nitrogen [Mass/Vol] 14 mg/dL 4-[address] [facility] Sodium levelOrdered By: Lila Key on 05-09-2025 Sodium [Moles/Vol] 132 mmol/L Low 133-145 [facility] Total proteinOrdered By: Jolene Key on 05-09-2025 Protein [Mass/Vol] 6.9 g/dL 5.9-8.4 [facility] White blood cell (WBC) count Ordered By: Katelynn Key on 05-09-2025 WBC (Bld) [#/Vol] 8.8 10*3/uL 4.4-11.0 [facility] Absolute lymphocyte countOrd ered By: Pablo West on 02-22-2025 Lymphocytes Auto (Unsp spec) [#/Vol] 2.39 10*3/uL 0.83-4.[address] [facility] Absolute neutrophil countOrd ered By: Pablo West on 02-22-2025 Neutrophils (Bld) [#/Vol] 5.5 10*3/uL 2.0-7.[address] [facility] Anion gap in Serum or Plasma Ordered By: Pablo West on 02-22-2025 Anion gap [Moles/Vol] 12 mmol/L 5-15 [facility] Automated lymphocyte count a s percentage of total leukocytesOrdered By: Pablo West on 02-22-2025 Lymphocytes/100 WBC Auto (Unsp spec) 27.0 % 19-[address] [facility] BUN/creatinine ratioOrdered By: Pablo West on 02-22-2025 Urea nitrogen/Creatinine [Mass ratio] 16.9 mg/mg 10-[address] [facility] Basophil percentageOrdered B y: Pablo West on 02-22-2025 Basophils/100 WBC (Bld) 1.0 % 0-1 [facility] Bilirubin, totalOrdered By: Pablo West on 02-22-2025 Bilirubin [Mass/Vol] 0.41 mg/dL 0.00-1.30 [facility] CBC W/Diff, Automatedon 01-28 Absolute Lymph 2.39 X10 3/uL Normal 0.83-4.[address] [facility] Comment on above: Performed By: #### L 500.4050, L503.6030, L504.2610, L101.9900, L100.9950, L501.6710, L100.0100, L503.0105 #### [facility] [address] [place], [address] Absolute Neut 5.5 X10 3/uL Normal 2.0-7.[address] [facility] Comment on above: Performed By: #### L 500.4050, L503.6030, L504.2610, L101.9900, L100.9950, L501.6710, L100.0100, L503.0105 #### [facility] [address] [place], [address] Basophils/100 WBC (Bld) 1.0 % Normal 0-1 [facility] Comment on above: Performed By: #### L 500.4050, L503.6030, L504.2610, L101.9900, L100.9950, L501.6710, L100.0100, L503.0105 #### [facility] [address] [place], [address] Eosinophils/100 WBC (Bld) 1.6 % Normal 0-[address] [facility] Comment on above: Performed By: #### L 500.4050, L503.6030, L504.2610, L101.9900, L100.9950, L501.6710, L100.0100, L503.0105 #### [facility] [address] [place], [address] Erythrocyte distribution width (RBC) [Ratio] 14.0 % Normal 11.6-14.[address] [facility] Comment on above: Performed By: #### L 500.4050, L503.6030, L504.2610, L101.9900, L100.9950, L501.6710, L100.0100, L503.0105 #### [facility] [address] [place], [address] Hematocrit (Bld) [Volume fraction] 43.3 % Normal 37-[address] [facility] Comment on above: Performed By: #### L 500.4050, L503.6030, L504.2610, L101.9900, L100.9950, L501.6710, L100.0100, L503.0105 #### [facility] [address] [place], [place], [id number] (867 Hemoglobin (Bld) [Mass/Vol] 14.3 g/dL Normal 12.0-15.[address] [facility] Comment on above: Performed By: #### L 500.4050, L503.6030, L504.2610, L101.9900, L100.9950, L501.6710, L100.0100, L503.0105 #### [facility] [address] [place], [address] IG% 0.900 Normal 0.0-0.[address] [facility] Comment on above: Result Comment: IG% - Immature Granulocytes (promyelocytes, myelocytes and metamyelocytes) > 1% indicates that a LEFT SHIFT is Present. Performed By: #### L 500.4050, L503.6030, L504.2610, L101.9900, L100.9950, L501.6710, L100.0100, L503.0105 #### [facility] [address] [place], [address] Lymphocytes/100 WBC (Bld) 27.0 % Normal 19-[address] [facility] Comment on above: Performed By: #### L 500.4050, L503.6030, L504.2610, L101.9900, L100.9950, L501.6710, L100.0100, L503.0105 #### [facility] [address] [place], [address] MCH (RBC) [Entitic mass] 29.7 pg Normal 27.0-32.[address] [facility] Comment on above: Performed By: #### L 500.4050, L503.6030, L504.2610, L101.9900, L100.9950, L501.6710, L100.0100, L503.0105 #### [facility] [address] [place], [address] MCHC (RBC) [Mass/Vol] 33.0 g/dL Normal 32-36 [facility] Comment on above: Performed By: #### L 500.4050, L503.6030, L504.2610, L101.9900, L100.9950, L501.6710, L100.0100, L503.0105 #### [facility] [address] [place], [address] MCV (RBC) [Entitic vol] 89.8 fL Normal 81-99 [facility] Comment on above: Performed By: #### L 500.4050, L503.6030, L504.2610, L101.9900, L100.9950, L501.6710, L100.0100, L503.0105 #### [facility] [address] [place], [address] Monocytes/100 WBC (Bld) 7.1 % Normal 0-10 [facility] Comment on above: Performed By: #### L 500.4050, L503.6030, L504.2610, L101.9900, L100.9950, L501.6710, L100.0100, L503.0105 #### [facility] [address] [place], [address] Neutrophils/100 WBC (Bld) 62.4 % Normal 47-[address] [facility] Comment on above: Performed By: #### L 500.4050, L503.6030, L504.2610, L101.9900, L100.9950, L501.6710, L100.0100, L503.0105 #### [facility] [address] [place], [address] Nucleated RBC (Bld) [#/Vol] 0 10*3/uL Normal 0-[address] [facility] Comment on above: Performed By: #### L 500.4050, L503.6030, L504.2610, L101.9900, L100.9950, L501.6710, L100.0100, L503.0105 #### [facility] [address] [place], [address] Platelet mean volume (Bld) [Entitic vol] 8.9 fL Normal 6.2-12.[address] [facility] Comment on above: Performed By: #### L 500.4050, L503.6030, L504.2610, L101.9900, L100.9950, L501.6710, L100.0100, L503.0105 #### [facility] [address] [place], [address] Platelets (Bld) [#/Vol] 349 10*3/uL Normal 150-[address] [facility] Comment on above: Performed By: #### L 500.4050, L503.6030, L504.2610, L101.9900, L100.9950, L501.6710, L100.0100, L503.0105 #### [facility] [address] [place], [address] RBC (Bld) [#/Vol] 4.82 10*6/uL Normal 4.2-5.4 [facility] Comment on above: Performed By: #### L 500.4050, L503.6030, L504.2610, L101.9900, L100.9950, L501.6710, L100.0100, L503.0105 #### [facility] [address] [place], [place], [id number] (202) RDW SD 45.8 fl High 35.1-43.[address] [facility] Comment on above: Performed By: #### L 500.4050, L503.6030, L504.2610, L101.9900, L100.9950, L501.6710, L100.0100, L503.0105 #### [facility] [address] [place], [place], [id number] WBC (Bld) [#/Vol] 8.8 10*3/uL Normal 4.4-11.0 [facility] Comment on above: Performed By: #### L 500.4050, L503.6030, L504.2610, L101.9900, L100.9950, L501.6710, L100.0100, L503.0105 #### [facility] [address] [place], [place], [id number] CRPon 02-22-2025 C-REACTIVE PROT 4.38 mg/L High 0.0-3.[address] [facility] Comment on above: Performed By: #### L 500.4050, L503.6030, L504.2610, L101.9900, L100.9950, L501.6710, L100.0100, L503.0105 #### [facility] [address] [place], [place], [id number] Carbon dioxide, total [Moles /volume] in Central venous bloodOrdered By: Pablo West on 02-22-2025 CO2 [Moles/Vol] 23.2 mmol/L 21.0-32.[address] [facility] Chloride assayOrdered By: Dolly West on 02-22-2025 Chloride [Moles/Vol] 95 mmol/L Low 98-108 [facility] Comprehensive Metabolic Prof ilon 02-22-2025 Albumin [Mass/Vol] 3.5 g/dL Normal 3.4-4.8 [facility] Comment on above: Performed By: #### L 500.4050, L503.6030, L504.2610, L101.9900, L100.9950, L501.6710, L100.0100, L503.0105 #### [facility] [address] [place], [place], [id number] Albumin/Globulin [Mass ratio] 1.2 {ratio} Normal 0.9-2.[address] [facility] Comment on above: Performed By: #### L 500.4050, L503.6030, L504.2610, L101.9900, L100.9950, L501.6710, L100.0100, L503.0105 #### [facility] [address] [place], [place], [id number] ALK PHOS 133 U/L High 35-[address] [facility] Comment on above: Performed By: #### L 500.4050, L503.6030, L504.2610, L101.9900, L100.9950, L501.6710, L100.0100, L503.0105 #### [facility] [address] [place], [place], [id number] ALT [Catalytic activity/Vol] 11 U/L Normal <=[address] [facility] Comment on above: Performed By: #### L 500.4050, L503.6030, L504.2610, L101.9900, L100.9950, L501.6710, L100.0100, L503.0105 #### [facility] [address] [place], [place], [id number] AST [Catalytic activity/Vol] 14 U/L Normal <=[address] [facility] Comment on above: Performed By: #### L 500.4050, L503.6030, L504.2610, L101.9900, L100.9950, L501.6710, L100.0100, L503.0105 #### [facility] [address] [place], [address] Bilirubin [Mass/Vol] 0.41 mg/dL Normal 0.00-1.30 [facility] Comment on above: Performed By: #### L 500.4050, L503.6030, L504.2610, L101.9900, L100.9950, L501.6710, L100.0100, L503.0105 #### [facility] [address] [place], [address] BUN/CRE 16.9 RATIO Normal 10-20 [facility] [facility] Comment on above: Performed By: #### L 500.4050, L503.6030, L504.2610, L101.9900, L100.9950, L501.6710, L100.0100, L503.0105 #### [facility] [address] [place], [address] Calcium [Mass/Vol] 8.9 mg/dL Normal 7.6-11.0 [facility] Comment on above: Performed By: #### L 500.4050, L503.6030, L504.2610, L101.9900, L100.9950, L501.6710, L100.0100, L503.0105 #### [facility] [address] [place], [address] Chloride [Moles/Vol] 95 mmol/L Low 98-108 [facility] Comment on above: Performed By: #### L 500.4050, L503.6030, L504.2610, L101.9900, L100.9950, L501.6710, L100.0100, L503.0105 #### [facility] [address] [place], [address] CO2 [Moles/Vol] 23.2 mmol/L Normal 21.0-32.[address] [facility] Comment on above: Performed By: #### L 500.4050, L503.6030, L504.2610, L101.9900, L100.9950, L501.6710, L100.0100, L503.0105 #### [facility] [address] [place], [address] Creatinine [Mass/Vol] 0.86 mg/dL Normal 0.70-1.20 [facility] Comment on above: Performed By: #### L 500.4050, L503.6030, L504.2610, L101.9900, L100.9950, L501.6710, L100.0100, L503.0105 #### [facility] [address] [place], [address] ECRCL 54.06 ml/min Normal 50-[address] [facility] Comment on above: Performed By: #### L 500.4050, L503.6030, L504.2610, L101.9900, L100.9950, L501.6710, L100.0100, L503.0105 #### [facility] [address] [place], [address] GAP 12 Normal 5-[address] [facility] Comment on above: Performed By: #### L 500.4050, L503.6030, L504.2610, L101.9900, L100.9950, L501.6710, L100.0100, L503.0105 #### [facility] [address] [place], [address] GFR/1.73 sq M.predicted among non-blacks MDRD (S/P/Bld) [Vol rate/Area] 74 mL/min/{1.73_m2} Normal >60 [facility] Comment on above: Result Comment: mL/m in/1.73m2 CKD-EPI Creatinine Equation (2020) Performed By: #### L 500.4050, L503.6030, L504.2610, L101.9900, L100.9950, L501.6710, L100.0100, L503.0105 #### [facility] [address] [place], [address] Globulin (S) [Mass/Vol] 3.0 g/dL Normal 2.2-4.2 [facility] Comment on above: Performed By: #### L 500.4050, L503.6030, L504.2610, L101.9900, L100.9950, L501.6710, L100.0100, L503.0105 #### [facility] [address] [place], [address] Glucose [Mass/Vol] 430 mg/dL High 70-99 [facility] Comment on above: Performed By: #### L 500.4050, L503.6030, L504.2610, L101.9900, L100.9950, L501.6710, L100.0100, L503.0105 #### [facility] [address] [place], [address] Potassium [Moles/Vol] 5.1 mmol/L Normal 3.3-5.1 [facility] Comment on above: Performed By: #### L 500.4050, L503.6030, L504.2610, L101.9900, L100.9950, L501.6710, L100.0100, L503.0105 #### [facility] [address] [place], [address] Sodium [Moles/Vol] 130 mmol/L Low 133-145 [facility] Comment on above: Performed By: #### L 500.4050, L503.6030, L504.2610, L101.9900, L100.9950, L501.6710, L100.0100, L503.0105 #### [facility] [address] [place], [address] T PROT 6.6 g/dL Normal 5.9-8.[address] [facility] Comment on above: Performed By: #### L 500.4050, L503.6030, L504.2610, L101.9900, L100.9950, L501.6710, L100.0100, L503.0105 #### [facility] [address] [place], [address] Urea nitrogen [Mass/Vol] 15 mg/dL Normal 4-[address] [facility] Comment on above: Performed By: #### L 500.4050, L503.6030, L504.2610, L101.9900, L100.9950, L501.6710, L100.0100, L503.0105 #### [facility] [address] [place], [address] Eosinophil percentageOrdered By: Pablo West on 02-22-2025 Eosinophils/100 WBC (Bld) 1.6 % 0-[address] [facility] Erythrocyte Sed Rateon 02-22 SED RATE 18 mm/hr Normal 0-[address] [facility] Comment on above: Performed By: #### L 500.4050, L503.6030, L504.2610, L101.9900, L100.9950, L501.6710, L100.0100, L503.0105 #### [facility] [address] [place], [address] Erythrocyte distribution wid th ratioOrdered By: Pablo West on 02-22-2025 Erythrocyte distribution width (RBC) [Ratio] 14.0 % 11.6-14.[address] [facility] Erythrocyte distribution wid th standard deviationOrdered By: Pablo West on 02-22-2025 Erythrocyte distribution width (RBC) [Ratio] 45.8 fl High 35.1-43.[address] [facility] Erythrocyte sedimentation ra teOrdered By: Pablo West on 02-22-2025 ESR (Bld) [Velocity] 18 mm/h 0-30 [facility] Ferritinon 02-22-2025 Ferritin [Mass/Vol] 202 ng/mL Normal 22-378 [facility] Comment on above: Performed By: #### L 500.4050, L503.6030, L504.2610, L101.9900, L100.9950, L501.6710, L100.0100, L503.0105 #### [facility] [address] [place], [address] Glomerular filtration rate ( GFR) estimation/1.73 sq m using serum, plasma, or whole bOrdered By: Pablo West on 02-22-2025 GFR/1.73 sq M.predicted among non-blacks MDRD (S/P/Bld) [Vol rate/Area] 74 mL/min/{1.73_m2} >60 [facility] Comment on above: mL/min/1.73m2 CKD-EP I Creatinine Equation (2020) Hematocrit Auto (Bld) [Volum e fraction]Ordered By: Pablo West on 02-22-2025 Hematocrit (Bld) [Volume fraction] 43.3 % 37-[address] [facility] Hemoglobin measurementOrdere d By: Pablo West on 02-22-2025 Hemoglobin (Bld) [Mass/Vol] 14.3 g/dL 12.0-15.[address] [facility] Immature granulocytes/100 WB C Auto (Bld)Ordered By: Pablo West on 02-22-2025 Immature granulocytes/100 WBC (Bld) 0.900 % 0.0-0.[address] [facility] Comment on above: IG% - Immature Granu locytes (promyelocytes, myelocytes and metamyelocytes) > 1% indicates that a LEFT SHIFT is Present. Iron measurement (mass/mass) Ordered By: Pablo West on 02-22-2025 Iron (Unsp spec) [Mass/Mass] 50 ug/dL 50-[address] [facility] Iron+Iron Binding Capacityon 02-22-2025 Iron [Mass/Vol] 50 ug/dL Normal 50-[address] [facility] Comment on above: Performed By: #### L 500.4050, L503.6030, L504.2610, L101.9900, L100.9950, L501.6710, L100.0100, L503.0105 #### [facility] [address] [place], [place], [address] UIBC 230 ug/dL Normal 228-[address] [facility] Comment on above: Performed By: #### L 500.4050, L503.6030, L504.2610, L101.9900, L100.9950, L501.6710, L100.0100, L503.0105 #### [facility] [address] [place], [place], [address] L503.0106on 02-22-2025 Cobalamin (Vitamin B12) [Mass/Vol] 718 pg/mL Normal 180-[address] [facility] Comment on above: Performed By: #### L 500.4050, L503.6030, L504.2610, L101.9900, L100.9950, L501.6710, L100.0100, L503.0105 #### [facility] [address] [place], [place], [id number] LDHon 02-22-2025 LDH 134 U/L Normal 84-[address] [facility] Comment on above: Order Comment: 1 Performed By: #### L 500.4050, L503.6030, L504.2610, L101.9900, L100.9950, L501.6710, L100.0100, L503.0105 #### [facility] [address] [place], [place], [id number] Laboratory - Chemistry and C hemistry - challengeOrdered By: Pablo West on 02-22-2025 AST [Catalytic activity/Vol] 14 U/L <[address] [facility] Lactate dehydrogenase (LDH) measurementOrdered By: Pablo West on 02-22-2025 LDH [Catalytic activity/Vol] 134 U/L 84-[address] [facility] MCV (mean corpuscular volume ) determinationOrdered By: Pablo West on 02-22-2025 MCV (RBC) [Entitic vol] 89.8 fL 81-99 [facility] Mean corpuscular hemoglobin (MCH) determinationOrdered By: Pablo West on 02-22-2025 MCH (RBC) [Entitic mass] 29.7 pg 27.0-32.[address] [facility] Mean corpuscular hemoglobin concentration (MCHC) determinationOrdered By: Pablo West on 02-22-2025 MCHC (RBC) [Mass/Vol] 33.0 g/dL 32-36 [facility] Mean platelet volume determi nationOrdered By: Pablo West on 02-22-2025 Platelet mean volume (Bld) [Entitic vol] 8.9 fL 6.2-12.[address] [facility] Monocyte percentageOrdered B y: Pablo West on 02-22-2025 Monocytes/100 WBC (Bld) 7.1 % 0-10 [facility] Neutrophil percentageOrdered By: Pablo West on 02-22-2025 Neutrophils/100 WBC (Bld) 62.4 % 47-[address] [facility] No Panel InformationOrdered By: Pablo West on 02-22-2025 Unsaturated Iron Binding Capacity 230 ug/dL 228-[address] [facility] Nucleated red blood cell per centageOrdered By: Pablo West on 02-22-2025 Nucleated RBC/100 WBC (Bld) [Ratio] 0 % 0-[address] [facility] Oncology Visit Reporton 01-28 Oncology Visit Report [facility] [address] [place] [address] OFFICE VISIT Date of Service: 02/22/25 1403 MR#: [id number] Acct: [id number] Name: KAROLINA CANADA Rep #: [id number] : 1955 From: Pablo West MD Age/Sex: 69/F Location: [facility] [place] Status: Signed HPI Subjective Date of Service 02/22/25 Chief Complaint f/u for NSCLC and JOEY History of Present Illness 68y.o.woman was found to have JOEY, given Oral supplements which caused constipation. She was given IV Iron 1200mg on 02/10/24, 02/17/24, 02/24/24 and 03/02/24. She had fatty infiltration of liver on CT, has US and Liver elastography done which showed Liver fibrosis. She got iron infusion weekly with Venofer on 05/11/2024, 05/18/2024 and 05/25/2024. She had RUL nodulectomy and mediastinal node sampling on 03/12/2021. 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 She is on observation. Comes for follow up. She felt better but feeling tired again. [facility] Medical History Anxiety Myocardial infarct Coronary artery disease DVT (deep venous thrombosis) COPD (chronic obstructive pulmonary disease) Brain fog Migraines Anemia Easy bruising Shortness of breath on exertion Chronic cough Leg cramps History of edema Cardiology follow-up encounter History of stress test Chest pain Gastroparesis Wears glasses Wears dentures Marijuana use Diabetes Arthritis High cholesterol Former smoker History of echocardiogram GERD (gastroesophageal reflux disease) Diarrhea Carcinoma, lung Old inferior wall myocardial infarction (03/03/07) Essential (primary) hypertension Depression Atherosclerotic heart disease of [place] coronary artery without angina pectoris Carotid stenosis, right Iron deficiency RLS (restless legs syndrome) Tubular adenoma of colon History of colonic polyps Hyperlipemia Ventral hernia Nausea Reflux esophagitis Osteoarthritis Surgical History Hx of colonoscopy History of lung surgery (03/2021) History of cardiac catheterization H/O coronary artery bypass surgery (04/03/07) History of coronary artery stent placement (01/27/16) Abnormal colonoscopy (01/10/18) History of cholecystectomy History of rotator cuff surgery History of hysterectomy History of inguinal hernia repair, bilateral History of bilateral carpal tunnel release History of appendectomy History of arthroscopy of right knee Status post laparoscopic cholecystectomy History of laparoscopy History of esophagogastroduodenoscop y (EGD) Hx of colonoscopy Family History Father Cancer bone Grandfather Cancer Grandmother Cancer Other Heart disease Social History Smoking Status: Current every day smoker tobacco type: cigarettes how long ago did patient quit smokin years ago alcohol intake: never substance use type: marijuana caffeine: Yes Type: coffee Number of servings: 3 Intake Vital Signs 08/03/24 13:48 11/07/24 16:33 02/22/25 14:04 02/22/25 14:06 Height 5 ft 4 in 5 ft 4 in 5 ft 4 in 5 ft 4 in Weight: 56.274 kg BMI 21.2 BP 121/76 H Blood Pressure Location Lt brachial Position Sitting Respiration 18 Pulse 94 Pulse Source Monitor Temp 98.4 F Temperature Source Temporal Artery Pulse Oximetry (%) 97 Oxygen Delivery Method room air Intake Is patient in pain?: Yes (general) Pain scale (1-10): 6 Allergies codeine Allergy (Verified 02/22/25 14:03) Hives fluticasone propionate (From Flonase) Allergy (Verified 02/22/25 14:03) Hives mometasone furoate (From Nasonex) Allergy (Verified 02/22/25 14:03) Hives Penicillins Allergy (Verified 02/22/25 14:03) Hives sitagliptin phosphate (From Januvia) Allergy (Verified 02/22/25 14:03) Hives Sulfa (Sulfonamide Antibiotics) Allergy (Verified 02/22/25 14:03) Hives tramadol Allergy (Verified 02/22/25 14:03) Hives venlafaxine HCl (From Effexor) Allergy (Verified 02/22/25 14:03) Hives cortisone Adverse Reaction (Verified 02/22/25 14:03) Other desvenlafaxine succinate (From Pristiq) Adverse Reaction (Verified 02/22/25 14:03) Other fluoxetine HCl (From Prozac) Adverse Reaction (Verified 02/22/25 14:03) Vomiting gabapentin (From Neurontin) Adverse Reaction (Verified 02/22/25 14:03) Vomiting hydrochlorothiazide Adverse Reaction (Verified 02/22/25 14:03) Other hydrocodone bitartrate (From Vicodin) Adverse Reaction (Verified 02/22/25 14:03) Vomiting lisinopril Adverse Reaction (Verified 02/22/25 14:03) Other losartan (Losartan) Adverse Reaction (Verified 02/22/25 14:03) Other oxycodone HCl (From OxyContin) Adverse Reaction (Verified 02/22/25 14:03) Other pioglit (more content not included)... Normal [facility] Platelet countOrdered By: Dloly West on 02-22-2025 Platelets (Bld) [#/Vol] 349 10*3/uL 150-[address] [facility] Potassium measurement (mass/ volume)Ordered By: Pablo West on 02-22-2025 Potassium (Unsp spec) [Mass/Vol] 5.1 mmol/L 3.3-5.[address] [facility] RBC Auto (Bld) [#/Vol]Ordere d By: Pablo West on 02-22-2025 RBC (Bld) [#/Vol] 4.82 10*6/uL 4.2-5.4 [facility] Serum creatinine measurement (mass/volume)Ordered By: Pablo West on 02-22-2025 Creatinine [Mass/Vol] 0.86 mg/dL 0.70-1.20 [facility] Serum globulin measurementOr dered By: Pablo West on 02-22-2025 Globulin (S) [Mass/Vol] 3.0 g/dL 2.2-4.2 [facility] Serum glucose measurement (m ass/volume)Ordered By: Pablo West on 02-22-2025 Glucose [Mass/Vol] 430 mg/dL High 70-99 [facility] Serum or plasma C reactive p rotein measurement (mass/volume)Ordered By: Pablo West on 02-22-2025 CRP [Mass/Vol] 4.38 mg/L High 0.0-3.[address] [facility] Serum or plasma alanine jaquez otransferase (ALT) measurementOrdered By: Pablo West on 02-22-2025 ALT [Catalytic activity/Vol] 11 U/L <[address] [facility] Serum or plasma albumin baldemar urement (mass/volume)Ordered By: Pablo West on 02-22-2025 Albumin [Mass/Vol] 3.5 g/dL 3.4-4.8 [facility] Serum or plasma albumin/glob ulin mass ratioOrdered By: Pablo West on 02-22-2025 Albumin/Globulin [Mass ratio] 1.2 {ratio} 0.9-2.[address] [facility] Serum or plasma alkaline kate sphatase measurementOrdered By: Pablo West on 02-22-2025 ALP [Catalytic activity/Vol] 133 U/L High 35-[address] [facility] Serum or plasma calcium baldemar urement (mass/volume)Ordered By: Pablo West on 02-22-2025 Calcium [Mass/Vol] 8.9 mg/dL 7.6-11.0 [facility] Serum or plasma ferritin alba surement (mass/volume)Ordered By: Pablo West on 02-22-2025 Ferritin [Mass/Vol] 202 ng/mL 22-378 [facility] Serum or plasma iron saturat ion measurement (mass fraction)Ordered By: Pablo West on 02-22-2025 Iron saturation [Mass fraction] 17.9 % 13-[address] [facility] Comment on above: Previous reported re sult: 18.0 %Edited by: PRASANNA on 02/22/25:1531 AMENDED REPORT 02/22/25 1531 IRON SATURATION previously reported as: 18.0 % Serum or plasma urea nitroge n measurement (mass/volume)Ordered By: Pablo West on 02-22-2025 Urea nitrogen [Mass/Vol] 15 mg/dL 4-[address] [facility] Sodium levelOrdered By: David West on 02-22-2025 Sodium [Moles/Vol] 130 mmol/L Low 133-145 [facility] Total proteinOrdered By: Crow West on 02-22-2025 Protein [Mass/Vol] 6.6 g/dL 5.9-8.4 [facility] Vitamin B12 ser/plasOrdered By: Pablo West on 02-22-2025 Cobalamin (Vitamin B12) [Mass/Vol] 718 pg/mL 180-[address] [facility] White blood cell (WBC) count Ordered By: Pablo West on 02-22-2025 WBC (Bld) [#/Vol] 8.8 10*3/uL 4.4-11.0 [facility] ABD Limited w/ Elastographyo n 01-16-2025 ABD Limited w/ Elastography [facility] [address] [place], [place] [address] ABD Limited w/ Elastography MR#: [id number] Acct: [id number] Name: KAROLINA CANADA Rep #: [id number] : 1955 F 69 From: Harry vegas MD PCP: Dr. Tyrel Sy MD Status: REG CLI Study: ABD Limited w/ Elastography Date of Exam: 12/30 07/23 Exam# [id number] Ordering Dr: Jameel Anne MD PROCEDURE: ABD LIMITED W/ ELASTOGRAPHY REASON FOR EXAM: NAFLD COMPARISON: Comparison is made with prior study dated April 12, 2024. TECHNIQUE: Right upper quadrant abdominal ultrasound. Jacey ElastQ Imaging shear wave elastography for non- invasive assessment of liver tissue stiffness. Jacey EPIQ Elite. FINDINGS: LIVER: Size: Unremarkable Length: 17.4 cm Echotexture: Normal Contour: Normal Lesions: None identified Elastography: EQI Med: 7.4 kPa EQI Med Timothy: 1.55 m/s IQR/Med: 18 %* GALLBLADDER: Surgically absent. COMMON BILE DUCT: Normal measures 7 mm.. PANCREAS: Normal Visualized portions of the right kidney are unremarkable. No right upper quadrant ascites. The spleen is not enlarged. It measures 9.7 cm x 4.4 cm x 4.5 cm. There is evidence of scattered calcified splenic granulomas. US/ABD Limited w/ Elastography IMPRESSION: NO TO MILD HEPATIC FIBROSIS Reference Values: SRU <1.37 m/s (5.7kPa): No to mild fibrosis 1.37 m/s - 2.2 m/s: Moderate to severe fibrosis >2.2 m/s (15kPa): Significant fibrosis / cirrhosis METAVIR Score F2 or higher: 1.34 m/s (5.7kPa) F3 or higher: 1.55 m/s (7.3kPa) F4: 1.80 m/s (10kPa) * If the IQR/Med is >30%, the variance in the measurements is a large and the accuracy of the measurement may be in question. Reading Location: [facility] CC: Dr. Tyrel Sy MD; Dr. Jameel Anne MD Dermatology Nurse: Signed Normal [facility] SCRN MAMM (CAD)W/BRITTNI BILATo n 12-26-2024 SCRN MAMM (CAD)W/BRITTNI BILAT [facility] [address] [place] [address] SCRN MAMM (CAD)W/BRITTNI BILAT MR#: [id number] Acct: [id number] Name: KAROLINA CANADA Rep #: [id number] : 1955 F 69 From: Harry vegas MD PCP: Dr. Tyrel Sy MD Status: REG [facility] Study: SCRN MAMM (CAD)W/BRITTNI BILAT Date of Exam: 11/30 07/23 Exam# [id number] Ordering Dr: Tyrel Sy PROCEDURE: SCRN MAMM (CAD)W/BRITTNI BILAT REASON FOR EXAM: F, Age 69 y/o, no family history. History of prior lung cancer. TECHNIQUE: Bilateral screening digital breast tomosynthesis with 2D and 3D images. Computer aided detection. COMPARISON: Prior exam(s) dating back to August 18, 2022.. FINDINGS: The breasts are heterogeneously dense which may obscure small masses. Stable examination. No suspicious masses, areas of developing architectural distortion, or suspicious calcifications. BI/SCRN MAMM (CAD)W/BRITTNI BILAT IMPRESSION: BI-RADS 1: NEGATIVE. RECOMMEND ANNUAL MAMMOGRAPHIC SCREENING. Follow-up code: Routine Follow-up The patient will be notified of the results by letter. Reading Location: [facility] CC: Dr. Tyrel Sy MD Dermatology Nurse: Signed Normal [facility] Gastroenterology Visit Repor ton 11-17-2024 Gastroenterology Visit Report [facility] [address] [place] [address] OFFICE VISIT Date of Service: 11/17/24 MR#: [id number] Acct: [id number] Name: KAROLINA CANADA Rep #: [id number] : 1955 Provider: MARIA LUZ Ward Age/Sex: 69/F Location: [facility] [place] Status: Signed Intake Vital Signs 11/07/24 16:33 Height 5 ft 4 in Intake Visit Reasons: Hospital FU Chief Complaint: f/u Allergies codeine Allergy (Verified 11/06/24 12:17) Hives fluticasone propionate (From Flonase) Allergy (Verified 11/06/24 12:17) Hives mometasone furoate (From Nasonex) Allergy (Verified 11/06/24 12:17) Hives Penicillins Allergy (Verified 11/06/24 12:17) Hives sitagliptin phosphate (From Januvia) Allergy (Verified 11/06/24 12:17) Hives Sulfa (Sulfonamide Antibiotics) Allergy (Verified 11/06/24 12:17) Hives tramadol Allergy (Verified 11/06/24 12:17) Hives venlafaxine HCl (From Effexor) Allergy (Verified 11/06/24 12:17) Hives cortisone Adverse Reaction (Verified 11/06/24 12:17) Other desvenlafaxine succinate (From Pristiq) Adverse Reaction (Verified 11/06/24 12:17) Other fluoxetine HCl (From Prozac) Adverse Reaction (Verified 11/06/24 12:17) Vomiting gabapentin (From Neurontin) Adverse Reaction (Verified 11/06/24 12:17) Vomiting hydrochlorothiazide Adverse Reaction (Verified 11/06/24 12:17) Other hydrocodone bitartrate (From Vicodin) Adverse Reaction (Verified 11/06/24 12:17) Vomiting lisinopril Adverse Reaction (Verified 11/06/24 12:17) Other losartan (Losartan) Adverse Reaction (Verified 11/06/24 12:17) Other oxycodone HCl (From OxyContin) Adverse Reaction (Verified 11/06/24 12:17) Other pioglitazone HCl (From Actos) Adverse Reaction (Verified 11/06/24 12:17) Vomiting propoxyphene napsylate (From Darvocet-N) Adverse Reaction (Verified 11/06/24 12:17) Vomiting tizanidine Adverse Reaction (Verified 11/06/24 12:17) Other Is last menstrual period known: No Patient : No Have you fallen in the past year?: No Nurse's Note: OV 11.17.24 Pt here for f/u from hospital. Pt reports nausea, vomiting, diarrhea, fatigue, and abdominal pain. Reports vomiting and diarrhea a few times a week. Denied bloody stools. Reports gallbladder removed many years ago. Prior colonoscopy . EGD . Reports medical marijuana a couple time daily. Continues famotidine and sucralfate daily. [facility] Medical History Anxiety Myocardial infarct Coronary artery disease DVT (deep venous thrombosis) COPD (chronic obstructive pulmonary disease) Brain fog Migraines Anemia Easy bruising Shortness of breath on exertion Chronic cough Leg cramps History of edema Cardiology follow-up encounter History of stress test Chest pain Gastroparesis Wears glasses Wears dentures Marijuana use Diabetes Arthritis High cholesterol Former smoker History of echocardiogram GERD (gastroesophageal reflux disease) Diarrhea Carcinoma, lung Old inferior wall myocardial infarction (03/03/07) Essential (primary) hypertension Depression Atherosclerotic heart disease of [place] coronary artery without angina pectoris Carotid stenosis, right Iron deficiency RLS (restless legs syndrome) Tubular adenoma of colon History of colonic polyps Hyperlipemia Ventral hernia Nausea Reflux esophagitis Osteoarthritis Surgical History Hx of colonoscopy History of lung surgery (03/2021) History of cardiac catheterization H/O coronary artery bypass surgery (04/03/07) History of coronary artery stent placement (01/27/16) Abnormal colonoscopy (01/10/18) History of cholecystectomy History of rotator cuff surgery History of hysterectomy History of inguinal hernia repair, bilateral History of bilateral carpal tunnel release History of appendectomy History of arthroscopy of right knee Status post laparoscopic cholecystectomy History of laparoscopy History of esophagogastroduodenoscop y (EGD) Hx of colonoscopy Family History Father Cancer bone Grandfather Cancer Grandmother Cancer Other Heart disease Social History Smoking Status: Current every day smoker tobacco type: cigarettes how long ago did patient quit smokin years ago alcohol intake: never substance use type: marijuana caffeine: Yes Type: coffee Number of servings: 3 HPI HPI Chief Complaint: f/u Details: KAROLINA CANADA, is a 69 F who presents to the office today for f/u. PMH lung cancer; myocardial infarction s/p coronary artery stent placement and CABG. FH colitis, unsure type. EGD and Colonoscopy 08.06.[address] Narvaez for reflux and diarrhea. (more content not included)... Normal [facility] Bedside Glucoseon 11-07-2024 FINGERSTICK GLU 144 mg/dL High 74-[address] [facility] Comment on above: Result Comment: HORACIO GEMENT OF PATIENT CARE PER NURSING PROTOCOL Performed By: #### L 501.080 #### [facility] Laboratory [address] [place], [place], [id number] (524) FINGERSTICK GLU 167 mg/dL High 74-[address] [facility] Comment on above: Result Comment: HORACIO GEMENT OF PATIENT CARE PER NURSING PROTOCOL Performed By: #### L 500.4050, L503.6030, L504.2610, L101.9900, L100.9950, L501.6710, L100.0100, L503.0105 #### [facility] Laboratory [address] [place], [place], [id number] FINGERSTICK GLU 165 mg/dL High 74-[address] [facility] Comment on above: Result Comment: HORACIO GEMENT OF PATIENT CARE PER NURSING PROTOCOL Performed By: #### L 500.4050, L503.6030, L504.2610, L101.9900, L100.9950, L501.6710, L100.0100, L503.0105 #### [facility] Laboratory [address] [place], [place], [id number] CBC-Complete Blood Cnt No Di ffon 11-07-2024 Erythrocyte distribution width (RBC) [Ratio] 13.6 % Normal 11.6-14.[address] [facility] Comment on above: Performed By: #### L 500.4050, L503.6030, L504.2610, L101.9900, L100.9950, L501.6710, L100.0100, L503.0105 #### [facility] Laboratory [address] [place], [address] Hematocrit (Bld) [Volume fraction] 39.8 % Normal 37-[address] [facility] Comment on above: Performed By: #### L 500.4050, L503.6030, L504.2610, L101.9900, L100.9950, L501.6710, L100.0100, L503.0105 #### [facility] Laboratory [address] [place], [address] Hemoglobin (Bld) [Mass/Vol] 13.0 g/dL Normal 12.0-15.[address] [facility] Comment on above: Performed By: #### L 500.4050, L503.6030, L504.2610, L101.9900, L100.9950, L501.6710, L100.0100, L503.0105 #### [facility] Laboratory [address] [place], [address] MCH (RBC) [Entitic mass] 30.0 pg Normal 27.0-32.[address] [facility] Comment on above: Performed By: #### L 500.4050, L503.6030, L504.2610, L101.9900, L100.9950, L501.6710, L100.0100, L503.0105 #### [facility] Laboratory [address] [place], [address] MCHC (RBC) [Mass/Vol] 32.7 g/dL Normal 32-36 [facility] Comment on above: Performed By: #### L 500.4050, L503.6030, L504.2610, L101.9900, L100.9950, L501.6710, L100.0100, L503.0105 #### [facility] Laboratory [address] [place], [address] MCV (RBC) [Entitic vol] 91.7 fL Normal 81-99 [facility] Comment on above: Performed By: #### L 500.4050, L503.6030, L504.2610, L101.9900, L100.9950, L501.6710, L100.0100, L503.0105 #### [facility] Laboratory [address] [place], [address] Platelet mean volume (Bld) [Entitic vol] 9.2 fL Normal 6.2-12.[address] [facility] Comment on above: Performed By: #### L 500.4050, L503.6030, L504.2610, L101.9900, L100.9950, L501.6710, L100.0100, L503.0105 #### [facility] Laboratory [address] [place], [address] Platelets (Bld) [#/Vol] 195 10*3/uL Normal 150-[address] [facility] Comment on above: Performed By: #### L 500.4050, L503.6030, L504.2610, L101.9900, L100.9950, L501.6710, L100.0100, L503.0105 #### [facility] Laboratory [address] [place], [address] RBC (Bld) [#/Vol] 4.34 10*6/uL Normal 4.2-5.4 [facility] Comment on above: Performed By: #### L 500.4050, L503.6030, L504.2610, L101.9900, L100.9950, L501.6710, L100.0100, L503.0105 #### [facility] Laboratory [address] [place], [address] RDW SD 46.4 fl High 35.1-43.[address] [facility] Comment on above: Performed By: #### L 500.4050, L503.6030, L504.2610, L101.9900, L100.9950, L501.6710, L100.0100, L503.0105 #### [facility] Laboratory [address] [place], [place], [id number] WBC (Bld) [#/Vol] 8.6 10*3/uL Normal 4.4-11.0 [facility] Comment on above: Performed By: #### L 500.4050, L503.6030, L504.2610, L101.9900, L100.9950, L501.6710, L100.0100, L503.0105 #### [facility] Laboratory [address] [place], [place], [id number] Comprehensive Metabolic Prof [facility] 11-07-2024 Albumin [Mass/Vol] 3.0 g/dL Low 3.2-5.0 [facility] Comment on above: Performed By: #### L 500.4050, L503.6030, L504.2610, L101.9900, L100.9950, L501.6710, L100.0100, L503.0105 #### [facility] Laboratory [address] [place], [place], [id number] Albumin/Globulin [Mass ratio] 0.8 {ratio} Low 0.9-2.[address] [facility] Comment on above: Performed By: #### L 500.4050, L503.6030, L504.2610, L101.9900, L100.9950, L501.6710, L100.0100, L503.0105 #### [facility] Laboratory [address] [place], [address] ALK P 116 U/L Normal 45-[address] [facility] Comment on above: Performed By: #### L 500.4050, L503.6030, L504.2610, L101.9900, L100.9950, L501.6710, L100.0100, L503.0105 #### [facility] [address] [place], [place], [id number] ALT [Catalytic activity/Vol] 13 U/L Normal 13-[address] [facility] Comment on above: Performed By: #### L 500.4050, L503.6030, L504.2610, L101.9900, L100.9950, L501.6710, L100.0100, L503.0105 #### [facility] [address] [place], [place], [id number] AST [Catalytic activity/Vol] 12 U/L Low 15-[address] [facility] Comment on above: Performed By: #### L 500.4050, L503.6030, L504.2610, L101.9900, L100.9950, L501.6710, L100.0100, L503.0105 #### [facility] [address] [place], [address] Bilirubin [Mass/Vol] 1.30 mg/dL High 0.20-1.00 [facility] Comment on above: Result Comment: For patients on eltrombopag therapy, use of Dimension [place] TBIL is not recommended. Performed By: #### L 500.4050, L503.6030, L504.2610, L101.9900, L100.9950, L501.6710, L100.0100, L503.0105 #### [facility] [address] [place], [address] BUN/CRE 12.9 RATIO Normal 10-[address] [facility] Comment on above: Performed By: #### L 500.4050, L503.6030, L504.2610, L101.9900, L100.9950, L501.6710, L100.0100, L503.0105 #### [facility] Laboratory [address] [place], [address] CA,Total 8.8 mg/dL Normal 8.5-10.[address] [facility] Comment on above: Performed By: #### L 500.4050, L503.6030, L504.2610, L101.9900, L100.9950, L501.6710, L100.0100, L503.0105 #### [facility] [address] [place], [address] Chloride [Moles/Vol] 104 mmol/L Normal 98-107 [facility] Comment on above: Performed By: #### L 500.4050, L503.6030, L504.2610, L101.9900, L100.9950, L501.6710, L100.0100, L503.0105 #### [facility] [address] [place], [address] CO2 [Moles/Vol] 26.0 mmol/L Normal 21.0-32.[address] [facility] Comment on above: Performed By: #### L 500.4050, L503.6030, L504.2610, L101.9900, L100.9950, L501.6710, L100.0100, L503.0105 #### [facility] Laboratory [address] [place], [address] Creatinine [Mass/Vol] 0.70 mg/dL Normal 0.55-1.02 [facility] Comment on above: Result Comment: The validity of the calculated GFR GFRAA in patients over 70 years has not been determined. Clinical correlation is essential. Performed By: #### L 500.4050, L503.6030, L504.2610, L101.9900, L100.9950, L501.6710, L100.0100, L503.0105 #### [facility] [address] [place], [address] ECRCL 58.12 ml/min Normal [facility] Comment on above: Performed By: #### L 500.4050, L503.6030, L504.2610, L101.9900, L100.9950, L501.6710, L100.0100, L503.0105 #### [facility] [address] [place], [place], [phone] (006) EST GFR - AA 108 mL/min Normal >[address] [facility] Comment on above: Result Comment: Afri can [place]an GFR Calc Performed By: #### L 500.4050, L503.6030, L504.2610, L101.9900, L100.9950, L501.6710, L100.0100, L503.0105 #### [facility] Laboratory [address] [place], [place], [id number] (130) GAP 5 Normal 5-[address] [facility] Comment on above: Performed By: #### L 500.4050, L503.6030, L504.2610, L101.9900, L100.9950, L501.6710, L100.0100, L503.0105 #### [facility] [address] [place], [place], [id number] (599 GFR/1.73 sq M.predicted among non-blacks MDRD (S/P/Bld) [Vol rate/Area] 89 mL/min/{1.73_m2} Normal >60 [facility] Comment on above: Result Comment: Non- GFR Calc Performed By: #### L 500.4050, L503.6030, L504.2610, L101.9900, L100.9950, L501.6710, L100.0100, L503.0105 #### [facility] [address] [place], [address] Globulin (S) [Mass/Vol] 3.6 g/dL Normal 2.2-4.2 [facility] Comment on above: Performed By: #### L 500.4050, L503.6030, L504.2610, L101.9900, L100.9950, L501.6710, L100.0100, L503.0105 #### [facility] [address] [place], [address] Glucose [Mass/Vol] 158 mg/dL High 74-106 [facility] Comment on above: Result Comment: Fast ing Glucose result greater than or equal to 126 mg/dL suggests DIABETES MELLITUS per A.D.A. criteria. Performed By: #### L 500.4050, L503.6030, L504.2610, L101.9900, L100.9950, L501.6710, L100.0100, L503.0105 #### [facility] [address] [place], [address] Potassium [Moles/Vol] 4.0 mmol/L Normal 3.5-5.1 [facility] Comment on above: Performed By: #### L 500.4050, L503.6030, L504.2610, L101.9900, L100.9950, L501.6710, L100.0100, L503.0105 #### [facility] Laboratory [address] [place], [address] Sodium [Moles/Vol] 135 mmol/L Low 136-145 [facility] Comment on above: Performed By: #### L 500.4050, L503.6030, L504.2610, L101.9900, L100.9950, L501.6710, L100.0100, L503.0105 #### [facility] [address] [place], [address] T PROT 6.6 g/dL Normal 6.4-8.[address] [facility] Comment on above: Performed By: #### L 500.4050, L503.6030, L504.2610, L101.9900, L100.9950, L501.6710, L100.0100, L503.0105 #### [facility] Laboratory [address] [place], [address] Urea nitrogen [Mass/Vol] 9 mg/dL Normal 7-[address] [facility] Comment on above: Performed By: #### L 500.4050, L503.6030, L504.2610, L101.9900, L100.9950, L501.6710, L100.0100, L503.0105 #### [facility] Laboratory [address] [place], [address] EGD Reporton 11-07-2024 EGD Report [facility] Medical Records Department [address] [place] [address] EGD Report MR#: [id number] Acct: [id number] Name: KAROLINA CANADA Rep #: [id number] : 1955 69 From: Charlie Corcoran DO PCP: Dr. Tyrel Sy MD Status:ADM IN Patient Name: Karolina Canada Procedure Date: 11/07/2024 3:41 PM Date of : 1955 Age: 69 Procedure: Upper GI endoscopy Indications: Dysphagia, Odynophagia Providers: Charlie Corcoran DO Medicines: Monitored Anesthesia Care Patient Profile: This is a 69 year old female. Refer to note in patient chart for documentation of history and physical. Patient has symptoms of dysphagia with liquids and dysphagia with solids. Complications: No immediate complications. Procedure: Pre-Anesthesia Assessment: - Prior to the procedure, a History and Physical was performed, and patient medications and allergies were reviewed. The patient is competent. The risks and benefits of the procedure and the sedation options and risks were discussed with the patient. All questions were answered and informed consent was obtained. Patient identification and proposed procedure were verified by the physician in the pre-procedure area. Mental Status Examination: alert and oriented. Airway Examination: normal oropharyngeal airway and neck mobility. Respiratory Examination: clear to auscultation. CV Examination: normal. Prophylactic Antibiotics: The patient does not require prophylactic antibiotics. Prior Anticoagulants: The patient has taken no anticoagulant or antiplatelet agents. ASA Grade Assessment: III - A patient with severe systemic disease. After reviewing the risks and benefits, the patient was deemed in satisfactory condition to undergo the procedure. The anesthesia plan was to use monitored anesthesia care (MAC). Immediately prior to administration of medications, the patient was re-assessed for adequacy to receive sedatives. The heart rate, respiratory rate, oxygen saturations, blood pressure, adequacy of pulmonary ventilation, and response to care were monitored throughout the procedure. The physical status of the patient was re-assessed after the procedure. After obtaining informed consent, the endoscope was passed under direct vision. Throughout the procedure, the patient's blood pressure, pulse, and oxygen saturations were monitored continuously. The Endoscope was introduced through the mouth, and advanced to the second part of duodenum. The upper GI endoscopy was accomplished without difficulty. The patient tolerated the procedure well. Scope In: 3:52:20 PM Scope Out: 3:59:21 PM Total Procedure Duration Time 0 hours 7 minutes 1 second Findings: Diffuse, white plaques were found in the entire esophagus. Biopsies were taken with a cold forceps for histology. Verification of patient identification for the specimen was done. Estimated blood loss was minimal. Mucosal changes including small-caliber esophagus, crepe paper esophagus, esophageal erosions, longitudinal markings and punctate white spots were found in the upper third of the esophagus and in the middle third of the esophagus. Biopsies were obtained from the proximal and distal esophagus with cold forceps for histology of suspected eosinophilic esophagitis. Verification of patient identification for the specimen was done. Estimated blood loss was minimal. A guidewire was placed and the scope was withdrawn. Dilation was performed with a Savary dilator with no resistance at 51 Fr. The dilation site was examined and showed. Estimated blood loss was minimal. No gross lesions were noted in the entire examined stomach. No gross lesions were noted in the duodenal bulb. Impression: - Esophageal plaques were found, consistent with candidiasis. Biopsied. - Esophageal mucosal changes consistent with eosinophilic esophagitis. Dilated. - No gross lesions in the entire stomach. - No gross lesions in the duodenal bulb. - Biopsies were taken with a cold forceps for evaluation of eosinophilic esophagitis. Recommendation: - Discharge patient to home. - Full liquid diet today. - Nystatin suspension 200,000 units PO QID for 10 days. - Continue present medications. Procedure Code(s): --- Professional --- 80164, Esophagogastroduodenoscop y, flexible, transoral; with insertion of guide wire followed by passage of dilator(s) through esophagus over guide wire 08677, 59,51, Esophagogastroduodenoscop y, flexible, transoral; with biopsy, single or multiple CPT copyright 2021 [employer]. All rights reserved. The codes documented in this report are preliminary and upon geospatial systems integrator review may be revised to meet current compliance requirements. Charlie Corcoran DO 11/07/2024 4:08:21 PM This report has been signed electronically. Number of Addenda: 0 (more content not included)... Normal [facility] Hemoglobin A1con 11-07-2024 HbA1c (Bld) [Mass fraction] 8.6 % High 3.8-5.[address] [facility] Comment on above: Result Comment: Norm al < 5.7 % Prediabetic 5.7 - 6.4 % Diabetic >or= 6.5 % Please note range changes. Performed By: #### L 500.4050, L503.6030, L504.2610, L101.9900, L100.9950, L501.6710, L100.0100, L503.0105 #### [facility] Laboratory [address] [facility] [place], [address] MR/POSTOP.ANEon 11-07-2024 MR/POSTOP[facility] Medical Records Department [address] [place] [address] Anesthesia Postop Eval I 11/07/24 1748 MR#: [id number] Acct: [id number] Name: KAROLINA CANADA Rep #: [id number] : 1955 69 From: Lavell Obando CRNA PCP: Dr. Tyrel Sy MD Status:ADM IN Y Race: C Location: [place]3 IG456-3 Anesthesia: Postop Eval I Current Vital Signs Temperature: 97.5 F Pulse Rate: 61 Blood Pressure: 129/60 Respiratory Rate: 16 Pulse Ox: 94 Oxygen Delivery Method: Room Air Assessment Airway patent: Yes Spontaneous unlabored respirations: Yes Mental status: Awake and Calm nausea: No Vomiting: No Anesthesia Complication: No Fluid Hydration Crystalloid volume administer (ml): 30 Total IV fluid infused: 30 Progress Note Anesthesia document: Postop Eval 1 completed: Yes 11/07/24 174 Date Lavell Worthington Signature: CC: Signed Normal [facility] MR/POSTOP.[facility] Medical Records Department [address] [place] [address] Anesthesia Postop Eval I 11/07/24 1605 MR#: [id number] Acct: [id number] Name: KAROLINA CANADA Rep #: [id number] : 1955 69 From: Michael Moran MD PCP: Dr. Tyrel Sy MD Status:ADM IN Y Race: C Location: [place] [address] Anesthesia: Postop Eval I Current Vital Signs Temperature: 97.4 F Pulse Rate: 74 Blood Pressure: 88/67 Respiratory Rate: 16 Pulse Ox: 99 Assessment Airway patent: Yes Spontaneous unlabored respirations: Yes nausea: No Vomiting: No Anesthesia Complication: No Fluid Hydration Crystalloid volume administer (ml): 20 Total IV fluid infused: 20 Progress Note Anesthesia document: Postop Eval 1 completed: Yes 11/07/24 172 Date Michael Worthington Signature: CC: Signed Normal [facility] MR/[id number] 11-07-2024 MR/POST[address] Medical Records Department [address] [place] [address] Anesthesia Postop Eval II 11/07/241653 MR#: [id number] Acct: [id number] Name: KAROLINA CANADA Rep #: [id number] : 1955 69 From: Tommy Olivares MD PCP: Dr. Tyrel Sy MD Status:ADM IN Y Race: C Location: [place] [address] Anesthesia Postop Eval I Sum Anesthesia Postop Eval I Summary Anesthesia Postop Eval I Summary: Anesthesia Postop Eval I: Assessment Summary Airway patent Spontaneous unlabored respirations Mental status nausea Vomiting Anesthesia Postop Eval I: Fluid Summary Crystalloid volume administer (ml) Colloids volume administered ( ml) Blood Product volume administered (ml) Total IV fluid infused Anesthesia Postop Eval I: Summary Notes Anesthesia Complication Anesthesia Complication Comment: Post-operative progress note Anesthesia: Postop Eval II Evaluation Mental status: Awake and Calm Pain Level: 0 nausea: No Vomiting: No Complications Anesthesia Complication: No 11/07/241654 Date Tommy Olivares MD Cosigner Signature: Date CC: Signed Normal [facility] Prothrombin Time w/INRon INR Coag (PPP) [Relative time] 1.2 {INR} Normal [facility] Comment on above: Performed By: #### L 500.4050, L503.6030, L504.2610, L101.9900, L100.9950, L501.6710, L100.0100, L503.0105 #### [facility] Laboratory [address] [place], [address] PT Coag (PPP) [Time] 14.7 s Normal 11.7-14.9 [facility] Comment on above: Performed By: #### L 500.4050, L503.6030, L504.2610, L101.9900, L100.9950, L501.6710, L100.0100, L503.0105 #### [facility] [place], [address] Special Stain Group Ion 12-1 Special Stain Group I ------- Patient Age/Sex Location Account Attending Physician KAROLINA CANADA 69/F MS3 [id number] Dr. Randi Iverson DO Specimen: [id number] Received: 11/07/24 Status: SCOTT David Num: [id number] Spec Type: EGD BIOPSY Subm Dr: Charlie Corcoran, DO HEADER OPERATION: EGD with biopsy and dilation PRE-OP DIAGNOSIS: Esophageal dysphagia TISSUE SUBMITTED: Random esophagus biopsy MICROSCOPIC DIAGNOSIS Esophagus, random biopsy: Acute esophagitis. Fibrinopurulent material suggestive of ulcer. Fungal organisms are present, consistent with Elizabeth species. See comment. AM. 11/09/2024 COMMENT GMS stain with matched control was used in the evaluation of this case. MICROSCOPIC DESCRIPTION Slides are reviewed. GROSS DESCRIPTION Received in fixative is one container labeled with the patient's name and designated Random esophagus biopsy. The specimen consists of multiple irregular fragments of light welsh soft tissue that in aggregate measure 0.5 x 0.3 x 0.1 cm. The specimen is totally submitted in one cassette. 11/08/2024 TC:2 CPT:19022,65644 Patient Age/Sex Location Account Attending Physician KAROLINA CANADA 69/F [place]3 [id number] Dr. Randi Iverson DO Signed (signature on file) Dr. Frantz Figueroa DO 11/09/[address] [facility] Comment on above: Performed By: #### L 500.4050, L503.6030, L504.2610, L101.9900, L100.9950, L501.6710, L100.0100, L503.0105 #### [facility] Laboratory [address] [facility] [place], [address] 12 Lead EKGon 11-06-2024 12 Lead EKG [facility] Cardiovascular Services [address] [place] [address] 12 Lead EKG 11/06/24 1226 MR#: [id number] Acct: [id number] Name: KAROLINA CANADA Rep #: [id number] : 1955 69 From: Chase Mancilla MD Attending Dr: Dr. Randi Iverson, Status: ADM I N Ordering Dr: Eduar Smith MD Date: 11/06/24 Location: [place]3 Sex: F C Admitted: 11/06/24 Test Reason : CP Blood Pressure : */* mmHG Vent. Rate : 75 BPM Atrial Rate : 75 BPM P-R Int : 124 ms QRS Dur : 144 ms QT Int : 454 ms P-R-T Axes : 81 75 94 degrees QTcB Int : 506 ms Normal sinus rhythm Left bundle branch block Abnormal ECG Confirmed by PETRA ROWAN, CHASE ([id number]), editor managing newspaper DARWIN WILLOUGHBY ([id number]) on 11/07/2024 8:17:05 AM Referred By: Confirmed By: CHASE MANCILLA MD 11/07/24 0817 Date Chase Mancilla MD CC: Dr. Eduar Smith MD; Dr. Tyrel Sy MD; Dr. Randi Iverson DO Signed Normal [facility] Basic Metabolic Profile (BMP )on 11-06-2024 BUN/CRE 11.5 RATIO Normal 10-[address] [facility] Comment on above: Order Comment: 'TROP ' Serial specimen #1, #2 or #3: 1 Performed By: #### L 500.4050, L503.6030, L504.2610, L101.9900, L100.9950, L501.6710, L100.0100, L503.0105 #### [facility] [address] [place], [address] CA,Total 10.0 mg/dL Normal 8.5-10.[address] [facility] Comment on above: Order Comment: 'TROP ' Serial specimen #1, #2 or #3: 1 Performed By: #### L 500.4050, L503.6030, L504.2610, L101.9900, L100.9950, L501.6710, L100.0100, L503.0105 #### [facility] [address] [place], [address] Chloride [Moles/Vol] 96 mmol/L Low 98-107 [facility] Comment on above: Order Comment: 'TROP ' Serial specimen #1, #2 or #3: 1 Performed By: #### L 500.4050, L503.6030, L504.2610, L101.9900, L100.9950, L501.6710, L100.0100, L503.0105 #### [facility] [address] [place], [address] CO2 [Moles/Vol] 29.0 mmol/L Normal 21.0-32.[address] [facility] Comment on above: Order Comment: 'TROP ' Serial specimen #1, #2 or #3: 1 Performed By: #### L 500.4050, L503.6030, L504.2610, L101.9900, L100.9950, L501.6710, L100.0100, L503.0105 #### [facility] [address] [place], [address] Creatinine [Mass/Vol] 1.04 mg/dL High 0.55-1.02 [facility] Comment on above: Order Comment: 'TROP ' Serial specimen #1, #2 or #3: 1 Result Comment: The validity of the calculated GFR GFRAA in patients over 70 years has not been determined. Clinical correlation is essential. Performed By: #### L 500.4050, L503.6030, L504.2610, L101.9900, L100.9950, L501.6710, L100.0100, L503.0105 #### [facility] [address] [place], [address] ECRCL 44.71 ml/min Normal [facility] Comment on above: Order Comment: 'TROP ' Serial specimen #1, #2 or #3: 1 Performed By: #### L 500.4050, L503.6030, L504.2610, L101.9900, L100.9950, L501.6710, L100.0100, L503.0105 #### [facility] [address] [place], [address] EST GFR - AA 68 mL/min Normal >[address] [facility] Comment on above: Order Comment: 'TROP ' Serial specimen #1, #2 or #3: 1 Result Comment: Afri can Singaporean GFR Calc Performed By: #### L 500.4050, L503.6030, L504.2610, L101.9900, L100.9950, L501.6710, L100.0100, L503.0105 #### [facility] [address] [place], [address] GAP 5 Normal 5-[address] [facility] Comment on above: Order Comment: 'TROP ' Serial specimen #1, #2 or #3: 1 Performed By: #### L 500.4050, L503.6030, L504.2610, L101.9900, L100.9950, L501.6710, L100.0100, L503.0105 #### [facility] [address] [place], [address] GFR/1.73 sq M.predicted among non-blacks MDRD (S/P/Bld) [Vol rate/Area] 56 mL/min/{1.73_m2} Low >60 [facility] Comment on above: Order Comment: 'TROP ' Serial specimen #1, #2 or #3: 1 Result Comment: Non- GFR Calc Performed By: #### L 500.4050, L503.6030, L504.2610, L101.9900, L100.9950, L501.6710, L100.0100, L503.0105 #### [facility] [address] [place], [address] Glucose [Mass/Vol] 294 mg/dL High 74-106 [facility] Comment on above: Order Comment: 'TROP ' Serial specimen #1, #2 or #3: 1 Result Comment: Gluc ose result greater than or equal to 200 mg/dL suggests DIABETES MELLITUS per A.D.A. criteria. Performed By: #### L 500.4050, L503.6030, L504.2610, L101.9900, L100.9950, L501.6710, L100.0100, L503.0105 #### [facility] [address] [place], [address] Potassium [Moles/Vol] 4.4 mmol/L Normal 3.5-5.1 [facility] Comment on above: Order Comment: 'TROP ' Serial specimen #1, #2 or #3: 1 Performed By: #### L 500.4050, L503.6030, L504.2610, L101.9900, L100.9950, L501.6710, L100.0100, L503.0105 #### [facility] [address] [place], [address] Sodium [Moles/Vol] 130 mmol/L Low 136-145 [facility] Comment on above: Order Comment: 'TROP ' Serial specimen #1, #2 or #3: 1 Performed By: #### L 500.4050, L503.6030, L504.2610, L101.9900, L100.9950, L501.6710, L100.0100, L503.0105 #### [facility] [address] [place], [place], [id number] Urea nitrogen [Mass/Vol] 12 mg/dL Normal 7-[address] [facility] Comment on above: Order Comment: 'TROP ' Serial specimen #1, #2 or #3: 1 Performed By: #### L 500.4050, L503.6030, L504.2610, L101.9900, L100.9950, L501.6710, L100.0100, L503.0105 #### [facility] [address] [place], [place], [address] Bedside Glucoseon 11-06-2024 FINGERSTICK GLU 162 mg/dL High 74-[address] [facility] Comment on above: Result Comment: HORACIO BAKER OF PATIENT CARE PER NURSING PROTOCOL Performed By: #### L 500.4050, L503.6030, L504.2610, L101.9900, L100.9950, L501.6710, L100.0100, L503.0105 #### [facility] [address] [place], [place], [id number] CBC W/Diff, Automatedon 12-0 Absolute Lymph 1.44 X10 3/uL Normal 0.83-4.[address] [facility] Comment on above: Performed By: #### L 500.4050, L503.6030, L504.2610, L101.9900, L100.9950, L501.6710, L100.0100, L503.0105 #### [facility] [address] [place], [address] Absolute Neut 8.9 X10 3/uL High 2.0-7.[address] [facility] Comment on above: Performed By: #### L 500.4050, L503.6030, L504.2610, L101.9900, L100.9950, L501.6710, L100.0100, L503.0105 #### [facility] [address] [place], [address] Basophils/100 WBC (Bld) 0.7 % Normal 0-1 [facility] Comment on above: Performed By: #### L 500.4050, L503.6030, L504.2610, L101.9900, L100.9950, L501.6710, L100.0100, L503.0105 #### [facility] [address] [place], [address] Eosinophils/100 WBC (Bld) 0.5 % Normal 0-[address] [facility] Comment on above: Performed By: #### L 500.4050, L503.6030, L504.2610, L101.9900, L100.9950, L501.6710, L100.0100, L503.0105 #### [facility] [address] [place], [address] Erythrocyte distribution width (RBC) [Ratio] 13.8 % Normal 11.6-14.[address] [facility] Comment on above: Performed By: #### L 500.4050, L503.6030, L504.2610, L101.9900, L100.9950, L501.6710, L100.0100, L503.0105 #### [facility] [address] [place], [address] Hematocrit (Bld) [Volume fraction] 45.2 % Normal 37-[address] [facility] Comment on above: Performed By: #### L 500.4050, L503.6030, L504.2610, L101.9900, L100.9950, L501.6710, L100.0100, L503.0105 #### [facility] [address] [place], [address] Hemoglobin (Bld) [Mass/Vol] 15.1 g/dL High 12.0-15.[address] [facility] Comment on above: Performed By: #### L 500.4050, L503.6030, L504.2610, L101.9900, L100.9950, L501.6710, L100.0100, L503.0105 #### [facility] [address] [place], [address] IG% 0.600 Normal 0.0-0.[address] [facility] Comment on above: Result Comment: IG% - Immature Granulocytes (promyelocytes, myelocytes and metamyelocytes) > 1% indicates that a LEFT SHIFT is Present. Performed By: #### L 500.4050, L503.6030, L504.2610, L101.9900, L100.9950, L501.6710, L100.0100, L503.0105 #### [facility] [address] [place], [address] Lymphocytes/100 WBC (Bld) 12.8 % Low 19-[address] [facility] Comment on above: Performed By: #### L 500.4050, L503.6030, L504.2610, L101.9900, L100.9950, L501.6710, L100.0100, L503.0105 #### [facility] [address] [place], [address] MCH (RBC) [Entitic mass] 30.1 pg Normal 27.0-32.[address] [facility] Comment on above: Performed By: #### L 500.4050, L503.6030, L504.2610, L101.9900, L100.9950, L501.6710, L100.0100, L503.0105 #### [facility] [address] [place], [address] MCHC (RBC) [Mass/Vol] 33.4 g/dL Normal 32-36 [facility] Comment on above: Performed By: #### L 500.4050, L503.6030, L504.2610, L101.9900, L100.9950, L501.6710, L100.0100, L503.0105 #### [facility] [address] [place], [address] MCV (RBC) [Entitic vol] 90.2 fL Normal 81-99 [facility] Comment on above: Performed By: #### L 500.4050, L503.6030, L504.2610, L101.9900, L100.9950, L501.6710, L100.0100, L503.0105 #### [facility] [address] [place], [address] Monocytes/100 WBC (Bld) 6.2 % Normal 0-10 [facility] Comment on above: Performed By: #### L 500.4050, L503.6030, L504.2610, L101.9900, L100.9950, L501.6710, L100.0100, L503.0105 #### [facility] [address] [place], [address] Neutrophils/100 WBC (Bld) 79.2 % High 47-[address] [facility] Comment on above: Performed By: #### L 500.4050, L503.6030, L504.2610, L101.9900, L100.9950, L501.6710, L100.0100, L503.0105 #### [facility] [address] [place], [address] Nucleated RBC (Bld) [#/Vol] 0 10*3/uL Normal 0-[address] [facility] Comment on above: Performed By: #### L 500.4050, L503.6030, L504.2610, L101.9900, L100.9950, L501.6710, L100.0100, L503.0105 #### [facility] [address] [place], [address] Platelet mean volume (Bld) [Entitic vol] 9.6 fL Normal 6.2-12.[address] [facility] Comment on above: Performed By: #### L 500.4050, L503.6030, L504.2610, L101.9900, L100.9950, L501.6710, L100.0100, L503.0105 #### [facility] [address] [place], [address] Platelets (Bld) [#/Vol] 227 10*3/uL Normal 150-[address] [facility] Comment on above: Performed By: #### L 500.4050, L503.6030, L504.2610, L101.9900, L100.9950, L501.6710, L100.0100, L503.0105 #### [facility] [address] [place], [address] RBC (Bld) [#/Vol] 5.01 10*6/uL Normal 4.2-5.4 [facility] Comment on above: Performed By: #### L 500.4050, L503.6030, L504.2610, L101.9900, L100.9950, L501.6710, L100.0100, L503.0105 #### [facility] [address] [place], [address] RDW SD 46.2 fl High 35.1-43.[address] [facility] Comment on above: Performed By: #### L 500.4050, L503.6030, L504.2610, L101.9900, L100.9950, L501.6710, L100.0100, L503.0105 #### [facility] [address] [place], [address] WBC (Bld) [#/Vol] 11.2 10*3/uL High 4.4-11.0 [facility] Comment on above: Performed By: #### L 500.4050, L503.6030, L504.2610, L101.9900, L100.9950, L501.6710, L100.0100, L503.0105 #### [facility] [address] [place], [address] CTA Chest W/WO Contrast CTA Chest W/WO Contrast [facility] [address] [place] [address] CTA Chest W/WO Contrast MR#: [id number] Acct: [id number] Name: KAROLINA CANADA Rep #: [id number] : 1955 F 69 From: Harry vegas MD PCP: Dr. Tyrel Sy MD Status: [facility] ER Study: CTA Chest W/WO Contrast Date of Exam: 11/06/24 Exam# [id number] Ordering Dr: Eduar Smith MD [id number] STUDY: CTA CHEST REASON FOR EXAM: Female, 69 years old. Chest pain, hx cancer, elevated d-dimer RADIATION DOSAGE (If Supplied By Facility): CTDIvol = ( 6.38 ) mGy, DLP = ( 182.47 ) mGycm TECHNIQUE: The examination was performed with the intravenous administration of IV 100mL Isovue-370. Post-processing of the angiographic images was performed, with multiplanar reformation and 3D reconstruction. Individualized dose optimization techniques were used for this CT. COMPARISON: Comparison is made with prior chest radiograph done earlier today. FINDINGS: Normal enhancement of the main pulmonary artery and right and left pulmonary arteries. Normal enhancement of the bilateral peripheral pulmonary arteries. There is no demonstrated pulmonary embolism. There is atherosclerotic calcification of the aortic arch with tortuosity. There is no demonstrated aortic dissection. There are calcifications of the coronary arteries. Sternal cerclage wires and vascular clips are present from a prior sternotomy and coronary artery bypass graft procedure (CABG). Calcified subcarinal lymph nodes. Normal hilar regions. Normal visualized trachea and bronchi. Hyperinflation. Emphysematous changes. Fibrocalcific scarring in the anterior right upper lobe. Calcified granuloma in the left lower lobe. Normal pleura. Normal chest wall structures. There are degenerative changes of thoracic spine. Scattered calcified splenic granulomas. CT/CTA Chest W/WO Contrast IMPRESSION: No evidence of pulmonary embolism. Prior CABG. Coronary artery calcification. Electronically Signed: Harry Yu MD at 14:52 EST Reading Location ID and State: [facility] / [place] , Service support , CC: Dr. Eduar Smith MD; Dr. Tyrel Sy MD Dermatology Nurse: Signed Normal [facility] Chest 1 View (Portable)on Chest 1 View (Portable) [facility] Imaging Services [address] [place] [id number] Chest 1 View (Portable) MR#: [id number] Acct: [id number] Name: KAROLINA CANADA Rep #: [id number] : 1955 F 69 From: Harry vegas MD PCP: Dr. Tyrel Sy MD Status: [facility] ER Study: Chest 1 View (Portable) Date of Exam: 11/06/24 Exam# [id number] Ordering Dr: Eduar Smith MD [id number] STUDY: X-RAY CHEST REASON FOR EXAM: Female, 69 years old. Chest pain TECHNIQUE: Single AP portable view of the chest. COMPARISON: Comparison is made with prior study of June 22, 2024. FINDINGS: EKG electrodes are seen. Hyperinflation. Calcified granuloma in the left lower lobe. There is no demonstrated pleural abnormality. Sternal cerclage wires and vascular clips are present from a prior sternotomy and coronary artery bypass graft procedure (CABG). Normal mediastinum and pili. Normal visualized pulmonary arteries. There is atherosclerotic calcification of the aortic arch with tortuosity. There are diffuse degenerative changes of the visualized thoracic spine. Normal visualized ribs, clavicles, and shoulders. There is no demonstrated abnormality of the visualized soft tissue structures of the upper abdomen. RAD/Chest 1 View (Portable) IMPRESSION: No acute abnormality is seen. Electronically Signed: Harry uY MD at 13:20 EST , CC: Dr. Eduar Smith MD; Dr. Tyrel Sy MD Dermatology Nurse: Signed Normal [facility] D-Dimer Quantitative (DVT/PE )on 11-06-2024 D-DIMER QUANT 1.77 FEU/ug/m Invalid Interpretation Code 0.27-0.[address] [facility] Comment on above: Result Comment: D-Di solange ELEVATED (>0.49): Additional studies and clinical assessments are indicated to conclude diagnosis of: Deep Vein Thrombosis (DVT) or Pulmonary Embolism (PE) CRITICAL VALUE CALLED TO ALEAH STAPLETON 11/06/24 1334 Judith Reynolds. RESULTS READ BACK BY SAME. Performed By: #### L [id number] #### [facility] [address] [place], [address] Emergency Department Summary on 11-06-2024 Emergency Department Summary [facility] Medical Records Department [address] [place] [address] Emergency Department Summary 11/06/24 MR#: [id number] Acct: [id number] Name: KAROLINA CANADA Rep #: [id number] : 1955 69 From: Eduar Smith MD PCP: Dr. Tyrel Sy MD Status:REG ER Location: ED HPI History of Present Illness Chief Complaint: Chest Pain Informant: patient Narrative Narrative: 69-year-old female with chest pain that has been there for 3 days now constantly. She states it hurts to swallow, upper mid chest, but the pain is there less severe when she is not swallowing, and radiates off to the left toward her shoulder. Denies dyspnea. Chronic cough not necessarily different than usual. No hemoptysis. She states she is able to swallow without vomiting, but is significantly painful to do so. She had a history of a lung nodule that was growing and ended up being cancerous, she had surgery for it on her right lower lung, states she did not have any radiation treatments. [facility] Medical History (Updated 11/06/24 @ 15:[address] Eduar Smith MD) Anxiety Myocardial infarct Coronary artery disease DVT (deep venous thrombosis) COPD (chronic obstructive pulmonary disease) Brain fog Migraines Anemia Easy bruising Shortness of breath on exertion Chronic cough Leg cramps History of edema Cardiology follow-up encounter History of stress test Chest pain Gastroparesis Wears glasses Wears dentures Marijuana use Diabetes Arthritis High cholesterol Former smoker History of echocardiogram GERD (gastroesophageal reflux disease) Diarrhea Carcinoma, lung Old inferior wall myocardial infarction (03/03/07) Essential (primary) hypertension Depression Atherosclerotic heart disease of [place] coronary artery without angina pectoris Carotid stenosis, right Iron deficiency RLS (restless legs syndrome) Tubular adenoma of colon History of colonic polyps Hyperlipemia Ventral hernia Nausea Reflux esophagitis Osteoarthritis Home Medications ???Medication ???Instructions ???Recorded ???Last Taken ???Type aspirin 81 mg chewable tablet 81 mg PO DAILY@0800 [facility] 01/25/16 05/01/23 History nitroglycerin 0.4 mg sublingual 0.4 mg sublingual Q5-15M PRN chest 11/26/20 Unknown Rx tablet pain #25 tabs escitalopram oxalate 20 mg tablet 20 mg PO DAILY 11/06/21 Unknown History atorvastatin 80 mg tablet 80 mg PO QDAY cholesterol #90 tabs 05/07/22 11/06/24 Rx isosorbide dinitrate 30 mg tablet 30 mg PO DAILY 08/12/22 05/05/23 History metoprolol succinate 50 mg 50 mg PO DAILY #90 tabs 01/21/23 05/05/23 Rx tablet,extended release 24 hr ranolazine 1,000 mg 1,000 mg PO DAILY #180 tabs 01/17/24 Unknown Rx tablet,extended release,12 hr sucralfate 1 gram tablet (Carafate) 1 g PO BID #14 tabs 06/22/24 Unknown Rx famotidine 20 mg tablet 20 mg PO BID #120 TABLETS 10/03/24 Unknown Rx ezetimibe 10 mg tablet (Zetia) 10 mg PO DAILY #90 tabs 11/02/24 Unknown Rx Allergy/AdvReac Type Severity Reaction Status Date / Time codeine Allergy Hives Verified 11/06/24 12:17 fluticasone propionate (From Allergy Hives Verified 11/06/24 12:17 Flonase) mometasone furoate (From Allergy Hives Verified 11/06/24 12:17 Nasonex) Penicillins Allergy Hives Verified 11/06/24 12:17 sitagliptin phosphate (From Allergy Hives Verified 11/06/24 12:17 Januvia) Sulfa (Sulfonamide Allergy Hives Verified 11/06/24 12:17 Antibiotics) tramadol Allergy Hives Verified 11/06/24 12:17 venlafaxine HCl (From Allergy Hives Verified 11/06/24 12:17 Effexor) cortisone AdvReac Other Verified 11/06/24 12:17 desvenlafaxine succinate AdvReac Other Verified 11/06/24 12:17 (From Pristiq) fluoxetine HCl (From Prozac) AdvReac Vomiting Verified 11/06/24 12:17 gabapentin (From Neurontin) AdvReac Vomiting Verified 11/06/24 12:17 hydrochlorothiazide AdvReac Other Verified 11/06/24 12:17 hydrocodone bitartrate (From AdvReac Vomiting Verified 11/06/24 12:17 Vicodin) lisinopril AdvReac Other Verified 11/06/24 12:17 losartan (Losartan) AdvReac Other Verified 11/06/24 12:17 oxycodone HCl (From AdvReac Other Verified 11/06/24 12:17 OxyContin) pioglitazone HCl (From Actos) AdvReac Vomiting Verified 11/06/24 12:17 propoxyphene napsylate (From AdvReac Vomiting Verified 11/06/24 12:17 Darvocet-N) tizanidine AdvReac Other Verified 11/06/24 12:17 Family History Father Cancer bone Grandfather Cancer Grandmother Cancer Other Heart disease Surgical History Hx of colonoscopy History of lung surgery (03/2021) History of cardiac catheterization H/O coronary artery bypass surgery (04/03/07) History of coronary artery stent lalo (more content not included)... Normal [facility] H AND P Exam - Hospitaliston 11-06-2024 H&P Exam - Hospitalist [facility] Medical Records Department [address] [place] [address] H P Exam - Hospitalist 11/06/24 1617 MR#: [id number] Acct: [id number] Name: CANADAKAROLINA M Rep #: [id number] : 1955 69 From: Nikko Berg DO PCP: Dr. Tyrel Sy MD Status:ADM [place] [facility] [id number] HPI - General General Date of Admission: 11/06/24 Date of Service: 11/06/24 Chief Complaint: Painful swallowing and difficulty swallowing HPI Narrative KAROLINA CANADA, is a 69 F who presented to [facility] ED on 11/06/2024 with 3-day history of painful swallowing and difficulty swallowing. Patient denies any prior history of dysphagia or odynophagia. Does have history of acid reflux but states this feels much different. No specific moment in time where she began having dysphagia or odynophagia. States she has pain in the upper to mid esophagus with eating or drinking anything. She has been able to get some liquids down but has not eaten any food for the past 3 days. Has history of nonspecific colitis and follows with gastroenterology in the office. Also has history of right-sided lung cancer s/p surgical removal with VATS, did not receive any chemotherapy or radiation with this. In the ED vital signs were stable. Labs notable for mild dehydration with sodium 130, chloride 96, and elevated D-dimer of 1.77. CTA chest was negative for PE and showed no other concerning findings. EKG did show new left bundle branch block however troponin was negative and CTA chest was normal as noted above. Case was discussed with Dr. Corcoran who was agreeable for patient to be admitted with GI consult. Hospitalist was then contacted for admission. I saw the patient at bedside in the ED. Patient was moderately fatigued and thin appearing but was otherwise sitting up comfortably in bed in no acute distress. Her mouth did appear dry on exam. She did report feeling very hungry and was frustrated that she had not been able to eat or drink hardly anything because of her pain and difficulty with swallowing. She lives at home with her sister and is able to do everything around the house for herself without issue. Denies any recent illnesses. Denies any fevers or chills. Denies any other pain or discomfort. Will be admitted for further management. [facility] Medical History (Updated 11/06/24 @ 20:[address] Nikko Berg, ) Anxiety Myocardial infarct Coronary artery disease DVT (deep venous thrombosis) COPD (chronic obstructive pulmonary disease) Brain fog Migraines Anemia Easy bruising Shortness of breath on exertion Chronic cough Leg cramps History of edema Cardiology follow-up encounter History of stress test Chest pain Gastroparesis Wears glasses Wears dentures Marijuana use Diabetes Arthritis High cholesterol Former smoker History of echocardiogram GERD (gastroesophageal reflux disease) Diarrhea Carcinoma, lung Old inferior wall myocardial infarction (03/03/07) Essential (primary) hypertension Depression Atherosclerotic heart disease of [place] coronary artery without angina pectoris Carotid stenosis, right Iron deficiency RLS (restless legs syndrome) Tubular adenoma of colon History of colonic polyps Hyperlipemia Ventral hernia Nausea Reflux esophagitis Osteoarthritis Home Medications ???Medication ???Instructions ???Recorded ???Last Taken ???Type aspirin 81 mg chewable tablet 81 mg PO DAILY@0800 heart health 01/25/16 05/01/23 History nitroglycerin 0.4 mg sublingual 0.4 mg sublingual Q5-15M PRN chest 11/26/20 Unknown Rx tablet pain #25 tabs escitalopram oxalate 20 mg tablet 20 mg PO DAILY 11/06/21 Unknown History atorvastatin 80 mg tablet 80 mg PO QDAY cholesterol #90 tabs 05/07/22 11/06/24 Rx isosorbide dinitrate 30 mg tablet 30 mg PO DAILY 08/12/22 05/05/23 History metoprolol succinate 50 mg 50 mg PO DAILY #90 tabs 01/21/23 05/05/23 Rx tablet,extended release 24 hr ranolazine 1,000 mg 1,000 mg PO DAILY #180 tabs 01/17/24 Unknown Rx tablet,extended release,12 hr sucralfate 1 gram tablet (Carafate) 1 g PO BID #14 tabs 06/22/24 Unknown Rx famotidine 20 mg tablet 20 mg PO BID #120 TABLETS 10/03/24 Unknown Rx ezetimibe 10 mg tablet (Zetia) 10 mg PO DAILY #90 tabs 11/02/24 Unknown Rx Allergy/AdvReac Type Severity Reaction Status Date / Time codeine Allergy Hives Verified 11/06/24 12:17 fluticasone propionate (From Allergy Hives Verified 11/06/24 12:17 Flonase) mometasone furoate (From Allergy Hives Verified 11/06/24 12:17 Nasonex) Penicillins Allergy Hives Verified 11/06/24 12:17 sitagliptin phosphate (From Allergy Hives Verified 11/06/24 12:17 Januvia) Sulfa (Sulfonamide Allergy Hives Verified 11/06/24 12:17 Antibiotics) tramadol Allergy Hives Verified 11/06/24 12:17 venlafaxine HCl (From (more content not included)... Normal [facility] Hemoglobin A1con 11-06-2024 HbA1c (Bld) [Mass fraction] 8.4 % High 3.8-5.[address] [facility] Comment on above: Result Comment: Norm al < 5.7 % Prediabetic 5.7 - 6.4 % Diabetic >or= 6.5 % Please note range changes. Performed By: #### L 500.4050, L503.6030, L504.2610, L101.9900, L100.9950, L501.6710, L100.0100, L503.0105 #### [facility] [address] [place], [address] L501.4020on 11-06-2024 TROPONIN-I HS 10 pg/mL Normal 3.0-54.[address] [facility] Comment on above: Order Comment: 'TROP ' Serial specimen #1, #2 or #3: 1 Result Comment: Plea se Note: New Test Units and Gender Specific Reference Ranges. For more information see Policy Stat Procedure [place] High Sensitivity Troponin (TNIH) and attachments. Performed By: #### L 500.4050, L503.6030, L504.2610, L101.9900, L100.9950, L501.6710, L100.0100, L503.0105 #### [facility] [address] [place], [place], [id number] Liver Profileon 11-06-2024 Albumin [Mass/Vol] 4.0 g/dL Normal 3.2-5.0 [facility] Comment on above: Performed By: #### L 500.4050, L503.6030, L504.2610, L101.9900, L100.9950, L501.6710, L100.0100, L503.0105 #### [facility] [address] [place], [address] ALK P 146 U/L High 45-[address] [facility] Comment on above: Performed By: #### L 500.4050, L503.6030, L504.2610, L101.9900, L100.9950, L501.6710, L100.0100, L503.0105 #### [facility] [address] [place], [address] ALT [Catalytic activity/Vol] 12 U/L Low 13-[address] [facility] Comment on above: Performed By: #### L 500.4050, L503.6030, L504.2610, L101.9900, L100.9950, L501.6710, L100.0100, L503.0105 #### [facility] [address] [place], [address] AST [Catalytic activity/Vol] 13 U/L Low 15-[address] [facility] Comment on above: Performed By: #### L 500.4050, L503.6030, L504.2610, L101.9900, L100.9950, L501.6710, L100.0100, L503.0105 #### [facility] [address] [place], [address] Bilirubin [Mass/Vol] 2.20 mg/dL High 0.20-1.00 [facility] Comment on above: Result Comment: For patients on eltrombopag therapy, use of Dimension [place] TBIL is not recommended. Performed By: #### L 500.4050, L503.6030, L504.2610, L101.9900, L100.9950, L501.6710, L100.0100, L503.0105 #### [facility] [address] [place], [address] Bilirubin.direct [Mass/Vol] 0.41 mg/dL High 0.00-0.[address] [facility] Comment on above: Performed By: #### L 500.4050, L503.6030, L504.2610, L101.9900, L100.9950, L501.6710, L100.0100, L503.0105 #### [facility] [address] [place], [address] Globulin (S) [Mass/Vol] 4.2 g/dL Normal 2.2-4.2 [facility] Comment on above: Performed By: #### L 500.4050, L503.6030, L504.2610, L101.9900, L100.9950, L501.6710, L100.0100, L503.0105 #### [facility] [address] [place], [address] T PROT 8.2 g/dL Normal 6.4-8.[address] [facility] Comment on above: Performed By: #### L 500.4050, L503.6030, L504.2610, L101.9900, L100.9950, L501.6710, L100.0100, L503.0105 #### [facility] [address] [place], [address] MR/CON.PCM.GIon 11-06-2024 MR/CON.PCM.GI [facility] Medical Records Department [address] [place] [address] Consultation - GI 11/06/241918 MR#: [id number] Acct: [id number] Name: KAROLINA CANADA Rep #: [id number] : 1955 69 From: [facility] PCP: Dr. Tyrel Sy MD Status:ADM [place] [facility] [place]-[place] HPI Consult Data Date of Consult: 11/06/24 HPI Narrative Reason for Consultation: Dysphagia HPI Narrative: KAROLINA CANADA, is a 69-year-old female with chest pain that has been there for 3 days now constantly. She has a past medical history of COPD, lung CA, fatty liver, JOEY and history of ulcerative colitis. She states it hurts to swallow, upper mid chest, but the pain is there less severe when she is not swallowing, and radiates off to the left toward her shoulder. Denies dyspnea. Chronic cough not necessarily different than usual. No hemoptysis. She states she is able to swallow without vomiting, but is significantly painful to do so. She had a history of a lung nodule that was growing and ended up being cancerous, she had surgery for it on her right lower lung, states she did not have any radiation treatments. [facility] Medical History (Updated 11/06/24 @ 15:[address] Eduar Smith MD) Anxiety Myocardial infarct Coronary artery disease DVT (deep venous thrombosis) COPD (chronic obstructive pulmonary disease) Brain fog Migraines Anemia Easy bruising Shortness of breath on exertion Chronic cough Leg cramps History of edema Cardiology follow-up encounter History of stress test Chest pain Gastroparesis Wears glasses Wears dentures Marijuana use Diabetes Arthritis High cholesterol Former smoker History of echocardiogram GERD (gastroesophageal reflux disease) Diarrhea Carcinoma, lung Old inferior wall myocardial infarction (03/03/07) Essential (primary) hypertension Depression Atherosclerotic heart disease of [place] coronary artery without angina pectoris Carotid stenosis, right Iron deficiency RLS (restless legs syndrome) Tubular adenoma of colon History of colonic polyps Hyperlipemia Ventral hernia Nausea Reflux esophagitis Osteoarthritis Home Medications ???Medication ???Instructions ???Recorded ???Last Taken ???Type aspirin 81 mg chewable tablet 81 mg PO DAILY@0800 [facility] 01/25/16 05/01/23 History nitroglycerin 0.4 mg sublingual 0.4 mg sublingual Q5-15M PRN chest 11/26/20 Unknown Rx tablet pain #25 tabs escitalopram oxalate 20 mg tablet 20 mg PO DAILY 11/06/21 Unknown History atorvastatin 80 mg tablet 80 mg PO QDAY cholesterol #90 tabs 05/07/22 11/06/24 Rx isosorbide dinitrate 30 mg tablet 30 mg PO DAILY 08/12/22 05/05/23 History metoprolol succinate 50 mg 50 mg PO DAILY #90 tabs 01/21/23 05/05/23 Rx tablet,extended release 24 hr ranolazine 1,000 mg 1,000 mg PO DAILY #180 tabs 01/17/24 Unknown Rx tablet,extended release,12 hr sucralfate 1 gram tablet (Carafate) 1 g PO BID #14 tabs 06/22/24 Unknown Rx famotidine 20 mg tablet 20 mg PO BID #120 TABLETS 10/03/24 Unknown Rx ezetimibe 10 mg tablet (Zetia) 10 mg PO DAILY #90 tabs 11/02/24 Unknown Rx Allergy/AdvReac Type Severity Reaction Status Date / Time codeine Allergy Hives Verified 11/06/24 12:17 fluticasone propionate (From Allergy Hives Verified 11/06/24 12:17 Flonase) mometasone furoate (From Allergy Hives Verified 11/06/24 12:17 Nasonex) Penicillins Allergy Hives Verified 11/06/24 12:17 sitagliptin phosphate (From Allergy Hives Verified 11/06/24 12:17 Januvia) Sulfa (Sulfonamide Allergy Hives Verified 11/06/24 12:17 Antibiotics) tramadol Allergy Hives Verified 11/06/24 12:17 venlafaxine HCl (From Allergy Hives Verified 11/06/24 12:17 Effexor) cortisone AdvReac Other Verified 11/06/24 12:17 desvenlafaxine succinate AdvReac Other Verified 11/06/24 12:17 (From Pristiq) fluoxetine HCl (From Prozac) AdvReac Vomiting Verified 11/06/24 12:17 gabapentin (From Neurontin) AdvReac Vomiting Verified 11/06/24 12:17 hydrochlorothiazide AdvReac Other Verified 11/06/24 12:17 hydrocodone bitartrate (From AdvReac Vomiting Verified 11/06/24 12:17 Vicodin) lisinopril AdvReac Other Verified 11/06/24 12:17 losartan (Losartan) AdvReac Other Verified 11/06/24 12:17 oxycodone HCl (From AdvReac Other Verified 11/06/24 12:17 OxyContin) pioglitazone HCl (From Actos) AdvReac Vomiting Verified 11/06/24 12:17 propoxyphene napsylate (From AdvReac Vomiting Verified 11/06/24 12:17 Darvocet-N) tizanidine AdvReac Other Verified 11/06/24 12:17 Family History Father Cancer bone Grandfather Cancer Grandmother Cancer Other Heart disease Surgical History Hx of colonoscopy History of lung surgery (0 (more content not included)... Normal [facility] Gastroenterology Visit Repor ton 10-24-2024 Gastroenterology Visit Report [facility] Gastroenterology [address] [place] [address] OFFICE VISIT Date of Service: 10/24/24 MR#: [id number] Acct: [id number] Name: KAROLINA CANADA Rep #: [id number] : 1955 Provider: Dr. Jameel roberts MD Age/Sex: 68/F Location: [facility] [place] Status: Signed Intake Vital Signs 06/22/24 11:58 08/03/24 13:48 10/24/24 11:10 Height 5 ft 4 in 5 ft 4 in 5 ft 4 in Weight: 125 lb 6 oz 124 lb BMI 21.5 21.2 BP 147/70 H 122/65 H Blood Pressure Location Lt brachial Lt brachial Position Sitting Sitting Respiration 18 Pulse 80 68 Pulse Source Monitor Temp 98.1 F Pulse Oximetry (%) 94 92 Oxygen Delivery Method room air room air Intake Visit Reasons: 6 M FU Allergies codeine Allergy (Verified 10/24/24 11:10) Hives fluticasone propionate (From Flonase) Allergy (Verified 10/24/24 11:10) Hives mometasone furoate (From Nasonex) Allergy (Verified 10/24/24 11:10) Hives Penicillins Allergy (Verified 10/24/24 11:10) Hives sitagliptin phosphate (From Januvia) Allergy (Verified 10/24/24 11:10) Hives Sulfa (Sulfonamide Antibiotics) Allergy (Verified 10/24/24 11:10) Hives tramadol Allergy (Verified 10/24/24 11:10) Hives venlafaxine HCl (From Effexor) Allergy (Verified 10/24/24 11:10) Hives cortisone Adverse Reaction (Verified 10/24/24 11:10) Other desvenlafaxine succinate (From Pristiq) Adverse Reaction (Verified 10/24/24 11:10) Other fluoxetine HCl (From Prozac) Adverse Reaction (Verified 10/24/24 11:10) Vomiting gabapentin (From Neurontin) Adverse Reaction (Verified 10/24/24 11:10) Vomiting hydrochlorothiazide Adverse Reaction (Verified 10/24/24 11:10) Other hydrocodone bitartrate (From Vicodin) Adverse Reaction (Verified 10/24/24 11:10) Vomiting lisinopril Adverse Reaction (Verified 10/24/24 11:10) Other losartan (Losartan) Adverse Reaction (Verified 10/24/24 11:10) Other oxycodone HCl (From OxyContin) Adverse Reaction (Verified 10/24/24 11:10) Other pioglitazone HCl (From Actos) Adverse Reaction (Verified 10/24/24 11:10) Vomiting propoxyphene napsylate (From Darvocet-N) Adverse Reaction (Verified 10/24/24 11:10) Vomiting tizanidine Adverse Reaction (Verified 10/24/24 11:10) Other Medications ???Medication ???Instructions ???Recorded ???Confirmed ???Type aspirin 81 mg chewable tablet 81 mg PO DAILY@0800 heart health 01/25/16 10/24/24 History glimepiride 4 mg tablet 4 mg PO DAILY diabetes 07/24/20 10/24/24 History nitroglycerin 0.4 mg sublingual 0.4 mg sublingual Q5-15M PRN chest 11/26/20 10/24/24 Rx tablet pain #25 tabs escitalopram oxalate 20 mg tablet 20 mg PO DAILY 11/06/21 10/24/24 History atorvastatin 80 mg tablet 80 mg PO QDAY cholesterol #90 tabs 05/07/22 10/24/24 Rx isosorbide dinitrate 30 mg tablet 30 mg PO DAILY 08/12/22 10/24/24 History metoprolol succinate 50 mg 50 mg PO DAILY #90 tabs 01/21/23 10/24/24 Rx tablet,extended release 24 hr ranolazine 1,000 mg 1,000 mg PO DAILY #180 tabs 01/17/24 10/24/24 Rx tablet,extended release,12 hr ezetimibe 10 mg tablet (Zetia) 10 mg PO DAILY #90 tabs 04/12/24 10/24/24 Rx loperamide 2 mg tablet 2 mg PO Q6H PRN loose stool #30 05/12/24 10/24/24 Rx (Anti-Diarrheal (loperamide)) tabs sucralfate 1 gram tablet (Carafate) 1 g PO BID #14 tabs 06/22/24 10/24/24 Rx famotidine 20 mg tablet 20 mg PO BID #120 TABLETS 10/03/24 10/24/24 Rx Have you fallen in the past year?: No PFSH Medical History COPD (chronic obstructive pulmonary disease) Brain fog Migraines Anemia Easy bruising Shortness of breath on exertion Chronic cough Leg cramps History of edema Cardiology follow-up encounter History of stress test Chest pain Gastroparesis Wears glasses Wears dentures Marijuana use Diabetes Arthritis High cholesterol Former smoker History of echocardiogram GERD (gastroesophageal reflux disease) Diarrhea Carcinoma, lung Old inferior wall myocardial infarction (03/03/07) Essential (primary) hypertension Depression Atherosclerotic heart disease of [place] coronary artery without angina pectoris Carotid stenosis, right Iron deficiency RLS (restless legs syndrome) Tubular adenoma of colon History of colonic polyps Hyperlipemia Ventral hernia Nausea Reflux esophagitis Osteoarthritis Surgical History Hx of colonoscopy History of lung surgery (03/2021) History of cardiac catheterization H/O coronary artery bypass surgery (04/03/07) History of coronary artery stent placement (01/27/16) Abnormal colonoscopy (01/10/18) History of cholecystectomy History of rotator cuff surgery History of hysterectomy History of inguinal hernia repair, bilateral History of bilateral carpal t (more content not included)... Normal [facility] CBC W/Diff, Automatedon 09-0 Absolute Lymph 1.95 X10 3/uL Normal 0.83-4.[address] [facility] Comment on above: Performed By: #### L 500.4050, L503.6030, L504.2610, L101.9900, L100.9950, L501.6710, L100.0100, L503.0105 #### [facility] [address] [place], [address] Absolute Neut 5.6 X10 3/uL Normal 2.0-7.[address] [facility] Comment on above: Performed By: #### L 500.4050, L503.6030, L504.2610, L101.9900, L100.9950, L501.6710, L100.0100, L503.0105 #### [facility] [address] [place], [address] Basophils/100 WBC (Bld) 0.6 % Normal 0-1 [facility] Comment on above: Performed By: #### L 500.4050, L503.6030, L504.2610, L101.9900, L100.9950, L501.6710, L100.0100, L503.0105 #### [facility] [address] [place], [address] Eosinophils/100 WBC (Bld) 0.7 % Normal 0-[address] [facility] Comment on above: Performed By: #### L 500.4050, L503.6030, L504.2610, L101.9900, L100.9950, L501.6710, L100.0100, L503.0105 #### [facility] [address] [place], [address] Erythrocyte distribution width (RBC) [Ratio] 15.0 % High 11.6-14.[address] [facility] Comment on above: Performed By: #### L 500.4050, L503.6030, L504.2610, L101.9900, L100.9950, L501.6710, L100.0100, L503.0105 #### [facility] [address] [place], [address] Hematocrit (Bld) [Volume fraction] 43.5 % Normal 37-[address] [facility] Comment on above: Performed By: #### L 500.4050, L503.6030, L504.2610, L101.9900, L100.9950, L501.6710, L100.0100, L503.0105 #### [facility] [address] [place], [address] Hemoglobin (Bld) [Mass/Vol] 14.1 g/dL Normal 12.0-15.[address] [facility] Comment on above: Performed By: #### L 500.4050, L503.6030, L504.2610, L101.9900, L100.9950, L501.6710, L100.0100, L503.0105 #### [facility] [address] [place], [address] IG% 0.200 Normal 0.0-0.[address] [facility] Comment on above: Result Comment: IG% - Immature Granulocytes (promyelocytes, myelocytes and metamyelocytes) > 1% indicates that a LEFT SHIFT is Present. Performed By: #### L 500.4050, L503.6030, L504.2610, L101.9900, L100.9950, L501.6710, L100.0100, L503.0105 #### [facility] [address] [place], [address] Lymphocytes/100 WBC (Bld) 23.6 % Normal 19-[address] [facility] Comment on above: Performed By: #### L 500.4050, L503.6030, L504.2610, L101.9900, L100.9950, L501.6710, L100.0100, L503.0105 #### [facility] [address] [place], [address] MCH (RBC) [Entitic mass] 29.7 pg Normal 27.0-32.[address] [facility] Comment on above: Performed By: #### L 500.4050, L503.6030, L504.2610, L101.9900, L100.9950, L501.6710, L100.0100, L503.0105 #### [facility] [address] [place], [address] MCHC (RBC) [Mass/Vol] 32.4 g/dL Normal 32-36 [facility] Comment on above: Performed By: #### L 500.4050, L503.6030, L504.2610, L101.9900, L100.9950, L501.6710, L100.0100, L503.0105 #### [facility] [address] [place], [address] MCV (RBC) [Entitic vol] 91.6 fL Normal 81-99 [facility] Comment on above: Performed By: #### L 500.4050, L503.6030, L504.2610, L101.9900, L100.9950, L501.6710, L100.0100, L503.0105 #### [facility] [address] [facility] [place], [address] Monocytes/100 WBC (Bld) 6.7 % Normal 0-10 [facility] Comment on above: Performed By: #### L 500.4050, L503.6030, L504.2610, L101.9900, L100.9950, L501.6710, L100.0100, L503.0105 #### [facility] [address] [facility] [place], [address] Neutrophils/100 WBC (Bld) 68.2 % Normal 47-[address] [facility] Comment on above: Performed By: #### L 500.4050, L503.6030, L504.2610, L101.9900, L100.9950, L501.6710, L100.0100, L503.0105 #### [facility] [address] [place], [address] Nucleated RBC (Bld) [#/Vol] 0 10*3/uL Normal 0-[address] [facility] Comment on above: Performed By: #### L 500.4050, L503.6030, L504.2610, L101.9900, L100.9950, L501.6710, L100.0100, L503.0105 #### [facility] [address] [place], [address] Platelet mean volume (Bld) [Entitic vol] 8.8 fL Normal 6.2-12.[address] [facility] Comment on above: Performed By: #### L 500.4050, L503.6030, L504.2610, L101.9900, L100.9950, L501.6710, L100.0100, L503.0105 #### [facility] [address] [place], [address] Platelets (Bld) [#/Vol] 233 10*3/uL Normal 150-[address] [facility] Comment on above: Performed By: #### L 500.4050, L503.6030, L504.2610, L101.9900, L100.9950, L501.6710, L100.0100, L503.0105 #### [facility] [address] [place], [address] RBC (Bld) [#/Vol] 4.75 10*6/uL Normal 4.2-5.4 [facility] Comment on above: Performed By: #### L 500.4050, L503.6030, L504.2610, L101.9900, L100.9950, L501.6710, L100.0100, L503.0105 #### [facility] [address] [place], [address] RDW SD 50.9 fl High 35.1-43.[address] [facility] Comment on above: Performed By: #### L 500.4050, L503.6030, L504.2610, L101.9900, L100.9950, L501.6710, L100.0100, L503.0105 #### [facility] [address] [place], [address] WBC (Bld) [#/Vol] 8.3 10*3/uL Normal 4.4-11.0 [facility] Comment on above: Performed By: #### L 500.4050, L503.6030, L504.2610, L101.9900, L100.9950, L501.6710, L100.0100, L503.0105 #### [facility] [address] [place], [place], [id number] CRPon 08-03-2024 C-REACTIVE PROT 3.11 mg/L High 0.0-3.[address] [facility] Comment on above: Order Comment: 1 Result Comment: C-Re active Protein (CRP) provides useful information for the diagnosis, therapy and monitoring of inflammatory processes and associated diseases. For the evaluation of Relative Risk for Cardiovascular Disease, a High Sensitivity CRP (HSCRP) should be ordered. Performed By: #### L 500.4050, L503.6030, L504.2610, L101.9900, L100.9950, L501.6710, L100.0100, L503.0105 #### [facility] [address] [place], [address] Comprehensive Metabolic Prof ilon 08-03-2024 Albumin [Mass/Vol] 3.7 g/dL Normal 3.2-5.0 [facility] Comment on above: Order Comment: 1 Performed By: #### L 500.4050, L503.6030, L504.2610, L101.9900, L100.9950, L501.6710, L100.0100, L503.0105 #### [facility] [address] [place], [address] Albumin/Globulin [Mass ratio] 0.9 {ratio} Normal 0.9-2.[address] [facility] Comment on above: Order Comment: 1 Performed By: #### L 500.4050, L503.6030, L504.2610, L101.9900, L100.9950, L501.6710, L100.0100, L503.0105 #### [facility] [address] [place], [address] ALK P 141 U/L High 45-[address] [facility] Comment on above: Order Comment: 1 Performed By: #### L 500.4050, L503.6030, L504.2610, L101.9900, L100.9950, L501.6710, L100.0100, L503.0105 #### [facility] [address] [place], [address] ALT [Catalytic activity/Vol] 15 U/L Normal 13-[address] [facility] Comment on above: Order Comment: 1 Performed By: #### L 500.4050, L503.6030, L504.2610, L101.9900, L100.9950, L501.6710, L100.0100, L503.0105 #### [facility] [address] [place], [address] AST [Catalytic activity/Vol] 13 U/L Low 15-[address] [facility] Comment on above: Order Comment: 1 Performed By: #### L 500.4050, L503.6030, L504.2610, L101.9900, L100.9950, L501.6710, L100.0100, L503.0105 #### [facility] [address] [place], [address] Bilirubin [Mass/Vol] 2.40 mg/dL High 0.20-1.00 [facility] Comment on above: Order Comment: 1 Result Comment: For patients on eltrombopag therapy, use of Dimension [place] TBIL is not recommended. Performed By: #### L 500.4050, L503.6030, L504.2610, L101.9900, L100.9950, L501.6710, L100.0100, L503.0105 #### [facility] [address] [place], [address] BUN/CRE 16.5 RATIO Normal 10-[address] [facility] Comment on above: Order Comment: 1 Performed By: #### L 500.4050, L503.6030, L504.2610, L101.9900, L100.9950, L501.6710, L100.0100, L503.0105 #### [facility] [facility] [address] [place], [address] CA,Total 9.4 mg/dL Normal 8.5-10.[address] [facility] Comment on above: Order Comment: 1 Performed By: #### L 500.4050, L503.6030, L504.2610, L101.9900, L100.9950, L501.6710, L100.0100, L503.0105 #### [facility] [address] [place], [address] Chloride [Moles/Vol] 99 mmol/L Normal 98-107 [facility] Comment on above: Order Comment: 1 Performed By: #### L 500.4050, L503.6030, L504.2610, L101.9900, L100.9950, L501.6710, L100.0100, L503.0105 #### [facility] [address] [place], [address] CO2 [Moles/Vol] 25.0 mmol/L Normal 21.0-32.[address] [facility] Comment on above: Order Comment: 1 Performed By: #### L 500.4050, L503.6030, L504.2610, L101.9900, L100.9950, L501.6710, L100.0100, L503.0105 #### [facility] [address] [place], [address] Creatinine [Mass/Vol] 1.03 mg/dL High 0.55-1.02 [facility] Comment on above: Order Comment: 1 Result Comment: The validity of the calculated GFR GFRAA in patients over 70 years has not been determined. Clinical correlation is essential. Performed By: #### L 500.4050, L503.6030, L504.2610, L101.9900, L100.9950, L501.6710, L100.0100, L503.0105 #### [facility] [address] [place], [address] ECRCL 45.77 ml/min Normal [facility] Comment on above: Order Comment: 1 Performed By: #### L 500.4050, L503.6030, L504.2610, L101.9900, L100.9950, L501.6710, L100.0100, L503.0105 #### [facility] [address] [place], [address] EST GFR - AA 69 mL/min Normal >[address] [facility] Comment on above: Order Comment: 1 Result Comment: Afri can Singaporean GFR Calc Performed By: #### L 500.4050, L503.6030, L504.2610, L101.9900, L100.9950, L501.6710, L100.0100, L503.0105 #### [facility] [address] [place], [address] GAP 9 Normal 5-[address] [facility] Comment on above: Order Comment: 1 Performed By: #### L 500.4050, L503.6030, L504.2610, L101.9900, L100.9950, L501.6710, L100.0100, L503.0105 #### [facility] [address] [place], [address] GFR/1.73 sq M.predicted among non-blacks MDRD (S/P/Bld) [Vol rate/Area] 57 mL/min/{1.73_m2} Low >60 [facility] Comment on above: Order Comment: 1 Result Comment: Non- GFR Calc Performed By: #### L 500.4050, L503.6030, L504.2610, L101.9900, L100.9950, L501.6710, L100.0100, L503.0105 #### [facility] [address] [place], [address] Globulin (S) [Mass/Vol] 4.1 g/dL Normal 2.2-4.2 [facility] Comment on above: Order Comment: 1 Performed By: #### L 500.4050, L503.6030, L504.2610, L101.9900, L100.9950, L501.6710, L100.0100, L503.0105 #### [facility] [address] [place], [address] Glucose [Mass/Vol] 284 mg/dL High 74-106 [facility] Comment on above: Order Comment: 1 Result Comment: Gluc ose result greater than or equal to 200 mg/dL suggests DIABETES MELLITUS per A.D.A. criteria. Performed By: #### L 500.4050, L503.6030, L504.2610, L101.9900, L100.9950, L501.6710, L100.0100, L503.0105 #### [facility] [address] [place], [address] Potassium [Moles/Vol] 3.6 mmol/L Normal 3.5-5.1 [facility] Comment on above: Order Comment: 1 Performed By: #### L 500.4050, L503.6030, L504.2610, L101.9900, L100.9950, L501.6710, L100.0100, L503.0105 #### [facility] [address] [place], [address] Sodium [Moles/Vol] 133 mmol/L Low 136-145 [facility] Comment on above: Order Comment: 1 Performed By: #### L 500.4050, L503.6030, L504.2610, L101.9900, L100.9950, L501.6710, L100.0100, L503.0105 #### [facility] [address] [place], [place], [id number] T PROT 7.8 g/dL Normal 6.4-8.[address] [facility] Comment on above: Order Comment: 1 Performed By: #### L 500.4050, L503.6030, L504.2610, L101.9900, L100.9950, L501.6710, L100.0100, L503.0105 #### [facility] [address] [place], [address] Urea nitrogen [Mass/Vol] 17 mg/dL Normal 7-[address] [facility] Comment on above: Order Comment: 1 Performed By: #### L 500.4050, L503.6030, L504.2610, L101.9900, L100.9950, L501.6710, L100.0100, L503.0105 #### [facility] [address] [place], [address] Erythrocyte Sed Rateon 08-03 SED RATE 43 mm/hr High 0-[address] [facility] Comment on above: Performed By: #### L 500.4050, L503.6030, L504.2610, L101.9900, L100.9950, L501.6710, L100.0100, L503.0105 #### [facility] [address] [place], [place], [id number] Iron+Iron Binding Capacityon 08-03-2024 Iron [Mass/Vol] 53 ug/dL Normal 50-[address] [facility] Comment on above: Order Comment: 1 Performed By: #### L 500.4050, L503.6030, L504.2610, L101.9900, L100.9950, L501.6710, L100.0100, L503.0105 #### [facility] [address] [place], [address] IRON SATURATION 14.1 Low 15.0-55.[address] [facility] Comment on above: Order Comment: 1 Performed By: #### L 500.4050, L503.6030, L504.2610, L101.9900, L100.9950, L501.6710, L100.0100, L503.0105 #### [facility] [address] [place], [address] TIBC 376 ug/dL Normal 250-[address] [facility] Comment on above: Order Comment: 1 Performed By: #### L 500.4050, L503.6030, L504.2610, L101.9900, L100.9950, L501.6710, L100.0100, L503.0105 #### [facility] [address] [place], [address] LDHon 08-03-2024 LDH 204 U/L Normal 84-[address] [facility] Comment on above: Order Comment: 1 Performed By: #### L 500.4050, L503.6030, L504.2610, L101.9900, L100.9950, L501.6710, L100.0100, L503.0105 #### [facility] [address] [place], [address] Oncology Visit Reporton Oncology Visit Report [facility] [address] [place] [address] OFFICE VISIT Date of Service: 08/03/24 1344 MR#: [id number] Acct: [id number] Name: KAROLINA CANADA Rep #: [id number] : 1955 From: Pablo West MD Age/Sex: 68/F Location: [facility] [place] Status: Signed HPI Subjective Date of Service 08/03/24 Chief Complaint F/u for Iron deficiency anemia. History of Present Illness 68y.o.woman was found to have JOEY, given Oral supplements which caused constipation. She was given IV Iron 1200mg on 02/10/24, 02/17/24, 02/24/24 and 03/02/24. She had fatty infiltration of liver on CT, has US and Liver elastography done which showed Liver fibrosis. She got iron infusion weekly with Venofer on 05/11/2024, 05/18/2024 amd 05/25/2024. Comes for follow up. She felt better but feeling tired again. [facility] Medical History COPD (chronic obstructive pulmonary disease) Brain fog Migraines Anemia Easy bruising Shortness of breath on exertion Chronic cough Leg cramps History of edema Cardiology follow-up encounter History of stress test Chest pain Gastroparesis Wears glasses Wears dentures Marijuana use Diabetes Arthritis High cholesterol Former smoker History of echocardiogram GERD (gastroesophageal reflux disease) Diarrhea Carcinoma, lung Old inferior wall myocardial infarction (03/03/07) Essential (primary) hypertension Depression Atherosclerotic heart disease of [place] coronary artery without angina pectoris Carotid stenosis, right Iron deficiency RLS (restless legs syndrome) Tubular adenoma of colon History of colonic polyps Hyperlipemia Ventral hernia Nausea Reflux esophagitis Osteoarthritis Surgical History Hx of colonoscopy History of lung surgery (03/2021) History of cardiac catheterization H/O coronary artery bypass surgery (04/03/07) History of coronary artery stent placement (01/27/16) Abnormal colonoscopy (01/10/18) History of cholecystectomy History of rotator cuff surgery History of hysterectomy History of inguinal hernia repair, bilateral History of bilateral carpal tunnel release History of appendectomy History of arthroscopy of right knee Status post laparoscopic cholecystectomy History of laparoscopy History of esophagogastroduodenoscop y (EGD) Hx of colonoscopy Family History Father Cancer bone Grandfather Cancer Grandmother Cancer Other Heart disease Social History Smoking Status: Current every day smoker tobacco type: e-cigarettes how long ago did patient quit smokin years ago alcohol intake: never substance use type: marijuana caffeine: Yes Type: coffee Number of servings: 3 Intake Vital Signs 05/04/24 13:37 08/03/24 13:46 08/03/24 13:48 Height 5 ft 4 in 5 ft 4 in 5 ft 4 in Weight: 56.869 kg BMI 21.5 BP 147/70 H Blood Pressure Location Lt brachial Position Sitting Respiration 18 Pulse 80 Pulse Source Monitor Temp 98.1 F Temperature Source Temporal Artery Pulse Oximetry (%) 94 Oxygen Delivery Method room air Intake Is patient in pain?: Yes (whole body) Pain scale (1-10): 6 Allergies codeine Allergy (Verified 08/03/24 13:48) Hives fluticasone propionate (From Flonase) Allergy (Verified 08/03/24 13:48) Hives mometasone furoate (From Nasonex) Allergy (Verified 08/03/24 13:48) Hives Penicillins Allergy (Verified 08/03/24 13:48) Hives sitagliptin phosphate (From Januvia) Allergy (Verified 08/03/24 13:48) Hives Sulfa (Sulfonamide Antibiotics) Allergy (Verified 08/03/24 13:48) Hives tramadol Allergy (Verified 08/03/24 13:48) Hives venlafaxine HCl (From Effexor) Allergy (Verified 08/03/24 13:48) Hives cortisone Adverse Reaction (Verified 08/03/24 13:48) Other desvenlafaxine succinate (From Pristiq) Adverse Reaction (Verified 08/03/24 13:48) Other fluoxetine HCl (From Prozac) Adverse Reaction (Verified 08/03/24 13:48) Vomiting gabapentin (From Neurontin) Adverse Reaction (Verified 08/03/24 13:48) Vomiting hydrochlorothiazide Adverse Reaction (Verified 08/03/24 13:48) Other hydrocodone bitartrate (From Vicodin) Adverse Reaction (Verified 08/03/24 13:48) Vomiting lisinopril Adverse Reaction (Verified 08/03/24 13:48) Other losartan (Losartan) Adverse Reaction (Verified 08/03/24 13:48) Other oxycodone HCl (From OxyContin) Adverse Reaction (Verified 08/03/24 13:48) Other pioglitazone HCl (From Actos) Adverse Reaction (Verified 08/03/24 13:48) Vomiting propoxyphene napsylate (From Darvocet-N) Adverse Reaction (Verified 08/03/24 13:48) Vomiting tizanidine Adverse Reaction (Verified 08/03/24 13:48) Other (more content not included)... Normal [facility] Retic Panelon 08-03-2024 IM RET FRACTION 12.30 Normal 3.00-15.[address] [facility] Comment on above: Performed By: #### L 500.4050, L503.6030, L504.2610, L101.9900, L100.9950, L501.6710, L100.0100, L503.0105 #### [facility] [address] [place], [place], [id number] RET-HE 32.8 pg Normal - [facility] Comment on above: Performed By: #### L 500.4050, L503.6030, L504.2610, L101.9900, L100.9950, L501.6710, L100.0100, L503.0105 #### [facility] [address] [place], [place], [id number] Retic Count 1.97 High 0.5-1.[address] [facility] Comment on above: Performed By: #### L 500.4050, L503.6030, L504.2610, L101.9900, L100.9950, L501.6710, L100.0100, L503.0105 #### [facility] [address] [place], [place], [id number] Reticulocyte hemoglobin equi valent (RET-He) measurementOrdered By: Pablo West on 08-03-2024 Hemoglobin (Reticulocytes) [Entitic mass] 32.8 pg 30-[address] [facility] Reticulocytes Auto (Bld) [#/ Vol]Ordered By: Pablo West on 08-03-2024 Reticulocytes/100 RBC (Bld) 1.97 % High 0.5-1.[address] [facility] Vitamin B12on 08-03-2024 Cobalamin (Vitamin B12) [Mass/Vol] 487 pg/mL Normal 211-[address] [facility] Comment on above: Performed By: #### L 500.4050, L503.6030, L504.2610, L101.9900, L100.9950, L501.6710, L100.0100, L503.0105 #### [facility] [address] [place], [address] Basic Metabolic Profile (BMP )on 06-22-2024 BUN/CRE 13.9 RATIO Normal 10-[address] [facility] Comment on above: Performed By: #### L 500.4050, L503.6030, L504.2610, L101.9900, L100.9950, L501.6710, L100.0100, L503.0105 #### [facility] [address] [place], [address] CA,Total 8.9 mg/dL Normal 8.5-10.[address] [facility] Comment on above: Performed By: #### L 500.4050, L503.6030, L504.2610, L101.9900, L100.9950, L501.6710, L100.0100, L503.0105 #### [facility] [address] [place], [address] Chloride [Moles/Vol] 102 mmol/L Normal 98-107 [facility] Comment on above: Performed By: #### L 500.4050, L503.6030, L504.2610, L101.9900, L100.9950, L501.6710, L100.0100, L503.0105 #### [facility] [address] [place], [address] CO2 [Moles/Vol] 25.0 mmol/L Normal 21.0-32.[address] [facility] Comment on above: Performed By: #### L 500.4050, L503.6030, L504.2610, L101.9900, L100.9950, L501.6710, L100.0100, L503.0105 #### [facility] [address] [place], [place], [id number] Creatinine [Mass/Vol] 1.01 mg/dL Normal 0.55-1.02 [facility] Comment on above: Result Comment: The validity of the calculated GFR GFRAA in patients over 70 years has not been determined. Clinical correlation is essential. Performed By: #### L 500.4050, L503.6030, L504.2610, L101.9900, L100.9950, L501.6710, L100.0100, L503.0105 #### [facility] [address] [place], [place], [id number] ECRCL 46.67 ml/min Normal [facility] Comment on above: Performed By: #### L 500.4050, L503.6030, L504.2610, L101.9900, L100.9950, L501.6710, L100.0100, L503.0105 #### [facility] [address] [place], [place], [id number] EST GFR - AA 70 mL/min Normal >[address] [facility] Comment on above: Result Comment: Afri can Singaporean GFR Calc Performed By: #### L 500.4050, L503.6030, L504.2610, L101.9900, L100.9950, L501.6710, L100.0100, L503.0105 #### [facility] [address] [place], [place], [id number] GAP 7 Normal 5-[address] [facility] Comment on above: Performed By: #### L 500.4050, L503.6030, L504.2610, L101.9900, L100.9950, L501.6710, L100.0100, L503.0105 #### [facility] [address] [place], [address] GFR/1.73 sq M.predicted among non-blacks MDRD (S/P/Bld) [Vol rate/Area] 58 mL/min/{1.73_m2} Low >60 [facility] Comment on above: Result Comment: Non- GFR Calc Performed By: #### L 500.4050, L503.6030, L504.2610, L101.9900, L100.9950, L501.6710, L100.0100, L503.0105 #### [facility] [address] [place], [address] Glucose [Mass/Vol] 230 mg/dL High 74-106 [facility] Comment on above: Result Comment: Gluc ose result greater than or equal to 200 mg/dL suggests DIABETES MELLITUS per A.D.A. criteria. Performed By: #### L 500.4050, L503.6030, L504.2610, L101.9900, L100.9950, L501.6710, L100.0100, L503.0105 #### [facility] [address] [place], [address] Potassium [Moles/Vol] 4.1 mmol/L Normal 3.5-5.1 [facility] Comment on above: Performed By: #### L 500.4050, L503.6030, L504.2610, L101.9900, L100.9950, L501.6710, L100.0100, L503.0105 #### [facility] [address] [place], [address] Sodium [Moles/Vol] 134 mmol/L Low 136-145 [facility] Comment on above: Performed By: #### L 500.4050, L503.6030, L504.2610, L101.9900, L100.9950, L501.6710, L100.0100, L503.0105 #### [facility] [address] [place], [address] Urea nitrogen [Mass/Vol] 14 mg/dL Normal 7-[address] [facility] Comment on above: Performed By: #### L 500.4050, L503.6030, L504.2610, L101.9900, L100.9950, L501.6710, L100.0100, L503.0105 #### [facility] [address] [place], [address] CBC W/Diff, Automatedon 07-2 5-2023 Absolute Lymph 1.38 X10 3/uL Normal 0.83-4.[address] [facility] Comment on above: Performed By: #### L 500.4050, L503.6030, L504.2610, L101.9900, L100.9950, L501.6710, L100.0100, L503.0105 #### [facility] [address] [place], [address] Absolute Neut 7.0 X10 3/uL Normal 2.0-7.[address] [facility] Comment on above: Performed By: #### L 500.4050, L503.6030, L504.2610, L101.9900, L100.9950, L501.6710, L100.0100, L503.0105 #### [facility] [address] [place], [address] Basophils/100 WBC (Bld) 0.9 % Normal 0-1 [facility] Comment on above: Performed By: #### L 500.4050, L503.6030, L504.2610, L101.9900, L100.9950, L501.6710, L100.0100, L503.0105 #### [facility] [address] [place], [address] Eosinophils/100 WBC (Bld) 0.4 % Normal 0-[address] [facility] Comment on above: Performed By: #### L 500.4050, L503.6030, L504.2610, L101.9900, L100.9950, L501.6710, L100.0100, L503.0105 #### [facility] [address] [place], [address] Erythrocyte distribution width (RBC) [Ratio] 16.0 % High 11.6-14.[address] [facility] Comment on above: Performed By: #### L 500.4050, L503.6030, L504.2610, L101.9900, L100.9950, L501.6710, L100.0100, L503.0105 #### [facility] [address] [place], [address] Hematocrit (Bld) [Volume fraction] 40.0 % Normal 37-[address] [facility] Comment on above: Performed By: #### L 500.4050, L503.6030, L504.2610, L101.9900, L100.9950, L501.6710, L100.0100, L503.0105 #### [facility] [address] [facility] [place], [address] Hemoglobin (Bld) [Mass/Vol] 13.0 g/dL Normal 12.0-15.[address] [facility] Comment on above: Performed By: #### L 500.4050, L503.6030, L504.2610, L101.9900, L100.9950, L501.6710, L100.0100, L503.0105 #### [facility] [address] [place], [address] IG% 0.300 Normal 0.0-0.[address] [facility] Comment on above: Result Comment: IG% - Immature Granulocytes (promyelocytes, myelocytes and metamyelocytes) > 1% indicates that a LEFT SHIFT is Present. Performed By: #### L 500.4050, L503.6030, L504.2610, L101.9900, L100.9950, L501.6710, L100.0100, L503.0105 #### [facility] [address] [place], [address] Lymphocytes/100 WBC (Bld) 15.4 % Low 19-[address] [facility] Comment on above: Performed By: #### L 500.4050, L503.6030, L504.2610, L101.9900, L100.9950, L501.6710, L100.0100, L503.0105 #### [facility] [address] [place], [address] MCH (RBC) [Entitic mass] 29.3 pg Normal 27.0-32.[address] [facility] Comment on above: Performed By: #### L 500.4050, L503.6030, L504.2610, L101.9900, L100.9950, L501.6710, L100.0100, L503.0105 #### [facility] [address] [place], [address] MCHC (RBC) [Mass/Vol] 32.5 g/dL Normal 32-36 [facility] Comment on above: Performed By: #### L 500.4050, L503.6030, L504.2610, L101.9900, L100.9950, L501.6710, L100.0100, L503.0105 #### [facility] [address] [place], [address] MCV (RBC) [Entitic vol] 90.3 fL Normal 81-99 [facility] Comment on above: Performed By: #### L 500.4050, L503.6030, L504.2610, L101.9900, L100.9950, L501.6710, L100.0100, L503.0105 #### [facility] [address] [place], [address] Monocytes/100 WBC (Bld) 5.0 % Normal 0-10 [facility] Comment on above: Performed By: #### L 500.4050, L503.6030, L504.2610, L101.9900, L100.9950, L501.6710, L100.0100, L503.0105 #### [facility] [address] [place], [address] Neutrophils/100 WBC (Bld) 78.0 % High 47-[address] [facility] Comment on above: Performed By: #### L 500.4050, L503.6030, L504.2610, L101.9900, L100.9950, L501.6710, L100.0100, L503.0105 #### [facility] [address] [facility] [place], [address] Nucleated RBC (Bld) [#/Vol] 0 10*3/uL Normal 0-[address] [facility] Comment on above: Performed By: #### L 500.4050, L503.6030, L504.2610, L101.9900, L100.9950, L501.6710, L100.0100, L503.0105 #### [facility] [address] [facility] [place], [address] Platelet mean volume (Bld) [Entitic vol] 8.8 fL Normal 6.2-12.[address] [facility] Comment on above: Performed By: #### L 500.4050, L503.6030, L504.2610, L101.9900, L100.9950, L501.6710, L100.0100, L503.0105 #### [facility] [address] [place], [address] Platelets (Bld) [#/Vol] 222 10*3/uL Normal 150-[address] [facility] Comment on above: Performed By: #### L 500.4050, L503.6030, L504.2610, L101.9900, L100.9950, L501.6710, L100.0100, L503.0105 #### [facility] [address] [place], [place], [id number] (658) RBC (Bld) [#/Vol] 4.43 10*6/uL Normal 4.2-5.4 [facility] Comment on above: Performed By: #### L 500.4050, L503.6030, L504.2610, L101.9900, L100.9950, L501.6710, L100.0100, L503.0105 #### [facility] [address] [place], [place], [id number] (902) RDW SD 53.5 fl High 35.1-43.[address] [facility] Comment on above: Performed By: #### L 500.4050, L503.6030, L504.2610, L101.9900, L100.9950, L501.6710, L100.0100, L503.0105 #### [facility] [address] [place], [place], [id number] (398) WBC (Bld) [#/Vol] 8.9 10*3/uL Normal 4.4-11.0 [facility] Comment on above: Performed By: #### L 500.4050, L503.6030, L504.2610, L101.9900, L100.9950, L501.6710, L100.0100, L503.0105 #### [facility] [address] [place], [place], [id number] CNOVon 06-22-2024 CNOV Office Visit (UCWSTR ) ----- KAROLINA CANADA ([id number]) 1955 F Date Time Provider Department 06/22/24 11:30 AM KERI OSUNAWSTR During your visit today, we recorded the following information about you: Keri Osuna APRN.MUSIC MINISTER 06/22/2024 11:26 AM Signed She came in with complaints of puking up blood. Patient says it started yesterday. Patient says she had picked again this morning and had blood in it again. Patient says is not a significant amount but this is a new change. At this time due to the significant patient history patient is being referred to the ER for more thorough evaluation. Patient was okay with this care plan and will go now. Allergies As of Date: 06/22/2024 Noted Allergy Reaction PENICILLINS 01/18/2006 4 - Hives ACTOS (PIOGLITAZONE HCL) 05/11/2011 14 - Other: See Comments Comments: muscle spasms ADHESIVE TAPE (ROSINS) 04/12/2013 2 - Rash Comments: Skin comes off with tape Use paper tape ATORVASTATIN 03/24/2018 11 - Vomiting CLOPIDOGREL 01/23/2021 11 - Vomiting CODEINE 04/12/2013 8 - GI Upset 16 - Unknown Comments: Can take small amounts CORTISONE 01/18/2006 Comments: loses nerve sensation DARVOCET A500 (PROPOXYPHENE N-ANTWNO*01/18/2006 4 - Hives EFFEXOR (VENLAFAXINE ANALOGUES) 05/11/2011 12 - Shortness of Breath GABAPENTIN 03/13/2019 5 - Intolerance HYDROCHLOROTHIAZIDE 03/13/2019 11 - Vomiting HYDROCODONE BITARTRATE 03/13/2019 8 - GI Upset JANUVIA (SITAGLIPTIN) 05/11/2011 14 - Other: See Comments Comments: muscle spasms LIPITOR (ATORVASTATIN CALCIUM) 05/11/2011 14 - Other: See Comments Comments: abdominal cramping LISINOPRIL 03/13/2019 14 - Other: See Comments LOSARTAN 03/13/2019 14 - Other: See Comments METOPROLOL 08/25/2019 6 - Diarrhea OXYCODONE 03/13/2019 5 - Intolerance OXYCONTIN (OXYCODONE HCL) 05/11/2011 14 - Other: See Comments Comments: headaches PERCOCET (OXYCODONE-ACETAMINOPHEN) 12/09/2012 8 - GI Upset PIOGLITAZONE 03/13/2019 8 - GI Upset PLAVIX (CLOPIDOGREL BISULFATE) 02/21/2016 6 - Diarrhea 11 - Vomiting PROZAC (FLUOXETINE HCL) 05/11/2011 14 - Other: See Comments Comments: low blood pressure SEASONAL ALLERGIES 03/20/2013 14 - Other: See Comments Comments: Itchy eyes, runny nose, sneezing STEROIDS (CORTICOSTEROIDS (GLUCOC*04/12/2013 8 - GI Upset Comments: deathly ill, joint pain SULFA (SULFONAMIDE ANTIBIOTICS) 05/11/2011 4 - Hives 10 - Anaphylaxis Comments: yeast infections TIZANIDINE 03/13/2019 4 - Hives TRAMADOL 03/13/2019 11 - Vomiting Date Reviewed: 06/16/2024 Reviewed by: Татьяна Mistry MA - Fully Assessed Primary Visit Diagnosis:Hematemesis, unspecified whether nausea present [K92.0] Prescriptions as of 06/22/2024 - ranolazine SR (RANEXA) 1,000 mg tab ER 12 hr Take 1 tablet by mouth once daily. - metoprolol succinate ER (TOPROL XL) 50 mg 24 hr tablet Take 1 tablet by mouth every afternoon. - ezetimibe (ZETIA) 10 mg tablet Take 1 tablet by mouth every afternoon. - atorvastatin (LIPITOR) 80 mg tablet Take 1 tablet by mouth every afternoon. - escitalopram oxalate (LEXAPRO) 20 mg tablet Take 20 mg by mouth every morning. - famotidine (PEPCID) 20 mg tablet Take by mouth once daily. - nitroglycerin sublingual (NITROQUICK) 0.4 mg SL tablet Dissolve 1 tablet under the tongue as needed. FOR CHEST PAIN. IF NO RELIEF CALL 911 - glimepiride (AMARYL) 4 mg tablet Take 4 mg by mouth daily with breakfast. - linagliptin (TRADJENTA) 5 mg tab Take 5 mg by mouth once daily. - aspirin, enteric coated (ECOTRIN LOW STRENGTH) 81 mg EC tablet Take 1 tablet by mouth once daily. Facility-Administered Medications as of 06/22/2024 - perflutren lipid microspheres 1.3 mL in NaCl (PF) 0.9% 10 mL injection (DEFINITY) - sodium chloride 0.9 % (flush) 10 mL (BD POSIFLUSH) Meds Comments as of 04/27/2019: Problem List As Of Date 06/22/2024 Noted Resolved CHEST PAIN NOS [R07.9] 03/11/2007 ASCVD [I25.10] 03/11/2007 Mixed hyperlipidemia [E78.2] 03/11/2007 Nausea with Vomiting [R11.2] 01/31/2010 Unspecified Esophagitis [K20.90] 01/31/2010 Diaphragmatic Hernia without Mention of Obstruc*01/31/2010 Acute Gastritis without Mention of Hemorrhage [*01/31/2010 Diarrhea [R19.7] 06/11/2011 Benign neoplasm of colon [D12.6] 06/11/2011 Arthropathy, 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] 12/09/2012 Chronic pain disorder [G89.4] 12/09/2012 Diffuse myofascial pain syndrome [M79.18] 12/09/2012 Adhesive capsulitis of left shoulder [M75.02] 12/21/2012 Left rotator cuff tear [M75.102] 03/20/2013 Acute pain of left shoulder [M25.512] 05/30/2013 Adhesive capsulitis of shoulder [M75.00] 05/30/2013 Arthritis of foot, right [M19.071] 08/15/2013 Right knee pain [M25.561] 01/18/2014 Arthritis of right knee [M17.11] 09/11/2014 Presence of stent in left circumflex coronary a*07/08/2017 Presence of stent in right coronary artery [Z95*07/08/2017 S/P CABG (more content not included)... Normal [facility] Chest PA and Lateralon 06-22 Chest PA and Lateral [facility] [address] [place] [address] Chest PA and Lateral MR#: [id number] Acct: [id number] Name: KAROLINA CANADA Rep #: [id number] : 1955 F 68 From: Ag Burr MD PCP: Dr. Tyrel Sy MD Status: PRE ER Study: Chest PA and Lateral Date of Exam: 06/22/24 Exam# [id number] Ordering Dr: Gamaliel Smith [id number] STUDY: X-RAY CHEST REASON FOR EXAM: Female, 68 years old. cough TECHNIQUE: PA and lateral views of the chest. COMPARISON: 02/05/2023 FINDINGS: Status post median sternotomy. Faint alveolar opacity in the upper right lung worrisome for pneumonia. There is no demonstrated pleural abnormality. Normal size heart. Normal mediastinum and pili. Normal visualized pulmonary arteries. Normal visualized aortic arch and descending thoracic aorta. Normal visualized thoracic spine. Normal visualized ribs, clavicles, and shoulders. There is no demonstrated abnormality of the visualized soft tissue structures of the upper abdomen. RAD/Chest PA and Lateral IMPRESSION: Suspect right upper lobe pneumonia. CT may be useful. Electronically Signed: Ag Burr MD at 13:06 EDT , CC: JYOTSNA Smith; Dr. Tyrel Sy MD Dermatology Nurse: Signed Normal [facility] Emergency Department Summary on 06-22-2024 Emergency Department Summary [facility] Medical Records Department [address] [place] [address] Emergency Department Summary 06/22/24 MR#: [id number] Acct: [id number] Name: KAROLINA CANADA Rep #: [id number] : 1955 68 From: Gamaliel GOYAL PCP: Dr. Tyrel Sy MD Status:DEP ER Location: ED HPI History of Present Illness Chief Complaint: GI Bleed Narrative Narrative: Patient is a 68-year-old female with history of CAD, multiple stents, on aspirin, history of liver fibrosis, who used to smoke 1 pack/day now uses a vape and medical marijuana presenting to the emergency department with complaints of vomiting blood. Patient states the last 2 days has been having some vomiting, she states it is coffee-ground, however it did turn to bright red blood today. Patient states she does have history of anemia. She does see Dr. Corcoran and had her last scope in 2020. Patient also has history of lung cancer. She states she feels overall weak, she does have chronic pain that is been ongoing for 4 years. She states she has not felt well in 4 years. [facility] Medical History COPD (chronic obstructive pulmonary disease) Brain fog Migraines Anemia Easy bruising Shortness of breath on exertion Chronic cough Leg cramps History of edema Cardiology follow-up encounter History of stress test Chest pain Gastroparesis Wears glasses Wears dentures Marijuana use Diabetes Arthritis High cholesterol Former smoker History of echocardiogram GERD (gastroesophageal reflux disease) Diarrhea Carcinoma, lung Old inferior wall myocardial infarction (03/03/07) Essential (primary) hypertension Depression Atherosclerotic heart disease of [place] coronary artery without angina pectoris Carotid stenosis, right Iron deficiency RLS (restless legs syndrome) Tubular adenoma of colon History of colonic polyps Hyperlipemia Ventral hernia Nausea Reflux esophagitis Osteoarthritis Home Medications ???Medication ???Instructions ???Recorded ???Last Taken ???Type aspirin 81 mg chewable tablet 81 mg PO DAILY@0800 heart health 01/25/16 05/01/23 History glimepiride 4 mg tablet 4 mg PO DAILY diabetes 07/24/20 Unknown History nitroglycerin 0.4 mg sublingual 0.4 mg sublingual Q5-15M PRN chest 11/26/20 Unknown Rx tablet pain #25 tabs escitalopram oxalate 20 mg tablet 20 mg PO DAILY 11/06/21 Unknown History atorvastatin 80 mg tablet 80 mg PO QDAY cholesterol #90 tabs 05/07/22 Unknown Rx isosorbide dinitrate 30 mg tablet 30 mg PO DAILY 08/12/22 05/05/23 History metoprolol succinate 50 mg 50 mg PO DAILY #90 tabs 01/21/23 05/05/23 Rx tablet,extended release 24 hr ranolazine 1,000 mg 1,000 mg PO DAILY #180 tabs 01/17/24 Unknown Rx tablet,extended release,12 hr famotidine 20 mg tablet 20 mg PO BID #60 tabs 04/11/24 Unknown Rx ezetimibe 10 mg tablet (Zetia) 10 mg PO DAILY #90 tabs 04/12/24 Unknown Rx loperamide 2 mg tablet 2 mg PO Q6H PRN loose stool #30 05/12/24 Unknown Rx (Anti-Diarrheal (loperamide)) tabs sucralfate 1 gram tablet (Carafate) 1 g PO BID #14 tabs 06/22/24 Unknown Rx Allergy/AdvReac Type Severity Reaction Status Date / Time codeine Allergy Hives Verified 06/22/24 12:00 fluticasone propionate (From Allergy Hives Verified 06/22/24 12:00 Flonase) mometasone furoate (From Allergy Hives Verified 06/22/24 12:00 Nasonex) Penicillins Allergy Hives Verified 06/22/24 12:00 sitagliptin phosphate (From Allergy Hives Verified 06/22/24 12:00 Januvia) Sulfa (Sulfonamide Allergy Hives Verified 06/22/24 12:00 Antibiotics) tramadol Allergy Hives Verified 06/22/24 12:00 venlafaxine HCl (From Allergy Hives Verified 06/22/24 12:00 Effexor) cortisone AdvReac Other Verified 06/22/24 12:00 desvenlafaxine succinate AdvReac Other Verified 06/22/24 12:00 (From Pristiq) fluoxetine HCl (From Prozac) AdvReac Vomiting Verified 06/22/24 12:00 gabapentin (From Neurontin) AdvReac Vomiting Verified 06/22/24 12:00 hydrochlorothiazide AdvReac Other Verified 06/22/24 12:00 hydrocodone bitartrate (From AdvReac Vomiting Verified 06/22/24 12:00 Vicodin) lisinopril AdvReac Other Verified 05/25/24 13:27 losartan (Losartan) AdvReac Other Verified 06/22/24 12:00 oxycodone HCl (From AdvReac Other Verified 06/22/24 12:00 OxyContin) pioglitazone HCl (From Actos) AdvReac Vomiting Verified 06/22/24 12:00 propoxyphene napsylate (From AdvReac Vomiting Verified 06/22/24 12:00 Darvocet-N) tizanidine AdvReac Other Verified 06/22/24 12:00 Family History Father Cancer bone Grandfather Cancer Grandmother Cancer Other Heart disease Surgical History Hx of col (more content not included)... Normal [facility] Lactic Acidon 06-22-2024 Lactate [Moles/Vol] 2.3 mmol/L Invalid Interpretation Code 0.4-1.[address] [facility] Comment on above: Order Comment: Y Result Comment: Crit ical Result(s) Called at: 13:36:51 06/22/2024 by: ABRAHAM WOOD. Results read back by Danielle English Performed By: #### L 500.4050, L503.6030, L504.2610, L101.9900, L100.9950, L501.6710, L100.0100, L503.0105 #### [facility] [address] [place], [place], [id number] Lipaseon 06-22-2024 Lipase [Catalytic activity/Vol] 51 U/L Normal 13-[address] [facility] Comment on above: Result Comment: Beatriz ortiz note: LIPASE revised reference range effective 23. New Lipase methodology. Expected to produce lower values than the previous assay method. NEW Reference Range: 13 - 75 U/L Performed By: #### L 500.4050, L503.6030, L504.2610, L101.9900, L100.9950, L501.6710, L100.0100, L503.0105 #### [facility] [address] [place], [address] Liver Profileon 06-22-2024 Albumin [Mass/Vol] 3.5 g/dL Normal 3.2-5.0 [facility] Comment on above: Performed By: #### L 500.4050, L503.6030, L504.2610, L101.9900, L100.9950, L501.6710, L100.0100, L503.0105 #### [facility] [address] [place], [address] ALK P 124 U/L High 45-[address] [facility] Comment on above: Performed By: #### L 500.4050, L503.6030, L504.2610, L101.9900, L100.9950, L501.6710, L100.0100, L503.0105 #### [facility] [address] [place], [address] ALT [Catalytic activity/Vol] 15 U/L Normal 13-[address] [facility] Comment on above: Performed By: #### L 500.4050, L503.6030, L504.2610, L101.9900, L100.9950, L501.6710, L100.0100, L503.0105 #### [facility] [address] [place], [address] AST [Catalytic activity/Vol] 13 U/L Low 15-[address] [facility] Comment on above: Performed By: #### L 500.4050, L503.6030, L504.2610, L101.9900, L100.9950, L501.6710, L100.0100, L503.0105 #### [facility] [address] [place], [address] Bilirubin [Mass/Vol] 1.60 mg/dL High 0.20-1.00 [facility] Comment on above: Result Comment: For patients on eltrombopag therapy, use of Dimension [place] TBIL is not recommended. Performed By: #### L 500.4050, L503.6030, L504.2610, L101.9900, L100.9950, L501.6710, L100.0100, L503.0105 #### [facility] [address] [place], [address] Bilirubin.direct [Mass/Vol] 0.40 mg/dL High 0.00-0.[address] [facility] Comment on above: Performed By: #### L 500.4050, L503.6030, L504.2610, L101.9900, L100.9950, L501.6710, L100.0100, L503.0105 #### [facility] [address] [place], [address] Globulin (S) [Mass/Vol] 3.9 g/dL Normal 2.2-4.2 [facility] Comment on above: Performed By: #### L 500.4050, L503.6030, L504.2610, L101.9900, L100.9950, L501.6710, L100.0100, L503.0105 #### [facility] [address] [place], [address] T PROT 7.4 g/dL Normal 6.4-8.[address] [facility] Comment on above: Performed By: #### L 500.4050, L503.6030, L504.2610, L101.9900, L100.9950, L501.6710, L100.0100, L503.0105 #### [facility] [address] [place], [address] Prothrombin Time w/INRon INR Coag (PPP) [Relative time] 1.1 {INR} Normal [facility] Comment on above: Performed By: #### L 500.4050, L503.6030, L504.2610, L101.9900, L100.9950, L501.6710, L100.0100, L503.0105 #### [facility] [address] [place], [address] PT Coag (PPP) [Time] 13.9 s Normal 11.7-14.9 [facility] Comment on above: Performed By: #### L 500.4050, L503.6030, L504.2610, L101.9900, L100.9950, L501.6710, L100.0100, L503.0105 #### [facility] [address] [place], [place], [id number] Stool Occult Blood iFOBon STOB Negative Normal [facility] Comment on above: Performed By: #### L 500.4050, L503.6030, L504.2610, L101.9900, L100.9950, L501.6710, L100.0100, L503.0105 #### [facility] [address] [place], [place], [address] CNOVon 06-16-2024 CNOV Office Visit (AGCARD KIAHB) ----- HERONBERTJl GARCÍA ([id number]) 1955 F Date Time Provider Department 06/16/24 3:00 PM DEDE SANTA AGCARDPOB During your visit today, we recorded the following information about you: Pulse Blood pressure Weight 66/minute 125/69 59.2 kg Dede Santa MD 06/16/2024 3:52 PM Signed [facility] [place] [facility] Department of Cardiovascular Medicine SECTION OF INTERVENTIONAL CARDIOLOGY OUTPATIENT VISIT DATE June 16, 2024 OUTPATIENT VISIT TYPE ESTABLISHED PRIMARY CARE PHYSICIAN: Tyrel Sy ([place]) [address] [place] [address] REFERRING PHYSICIAN: SELF CHIEF COMPLAINT: Patient presents with: CARD Follow Up 6 Month HISTORY OF PRESENT ILLNESS: Ms. Canada is a 68 year old female who presents today for follow-up visit. She has PMH of the DM, CAD (S/P CABG, PCI) HTN, HLP, and PAD (per patient has bilateral carotid artery stenosis/P endarterectomy of the right side. She mentioned that about 7 months ago has [facility] out side hospital and they did not do anything. Still waiting for the images to evaluate them (I asked her to bring the CD so I can evaluate it). She complains of fatigue and anemia. And she mentioned that has liver fibrosis ( possible cirrhosis and could be the reason for anemia ) She denies shortness of breath, syncope, and claudication. PAST CARDIAC HISTORY: See HPI PAST MEDICAL HISTORY Diagnosis Date Benign neoplasm of duodenum, jejunum, and ileum CAD (coronary artery disease) bilateral Carotid artery stenosis Cyst on right wrist Diabetes (HCC) Diarrhea HLD (hyperlipidemia) HTN (hypertension) Hx of cardiac cath Knee pain LA (myocardial infarction) (HCC) Nausea Nausea with vomiting [...] ARTERIAL, FOUR+ 2007 COLONOSCOPY W/BIOPSY SINGLE/MULTIPLE 06/11/2011 ESOPHAGOGASTRODUODENOSCOP Y TRANSORAL DIAGNOSTIC 01/31/2010 EGD LAPS ABD PRTMANDOMENTUM DX W/WO SPEC BR/WA SPX Laparoscopy x 3 PAST SURGICAL HISTORY OF 1984 gallbladder PAST SURGICAL HISTORY OF 1985 appendectomy PAST SURGICAL HISTORY OF carpal tunnel bilateral PAST SURGICAL HISTORY OF 1982 double hernia surgery PAST SURGICAL HISTORY OF 1992 hysterectomy PAST SURGICAL HISTORY OF 2016 Cardiac [...] Types: Cigarettes Quit date: 03/01/2007 Years since quittin.3 Smokeless tobacco: Never Tobacco comments: 01/12/24 Strong tobacco smell present Vaping Use Vaping [...] nose, sneezing Steroids [Corticost* GI Upset deathly ill, joint pain Sulfa (Sulfonamide * Hives, Anaphylaxis yeast infections Tizanidine Hives T (more content not included)... Normal [facility] Blood manual differential co mment interpretation (narrative result)Ordered By: Pablo West on 03-30-2024 Manual differential comment Fritz (Bld) [Interp] SCANNED [facility] Gamma glutamyl transferase ( GGT) measurementOrdered By: Pablo West on 03-30-2024 Amylase [Catalytic activity/Vol] 20 U/L 5-[address] [facility] Immature platelet percentage Ordered By: Pablo West on 03-30-2024 Platelets reticulated/100 platelets Auto (Bld) 1.9 % 1.0-7.[address] [facility] Comment on above: Low PLT + Low IPF moise ggest a bone marrow production disorderLow PLT + high IPF suggests peripheral destruction(e.g.ITP, TTP, HIT, DIC, autoimmune) or bone marrow recoveryTrending of serial IPF measurements is recommended when evaluating for bone marrow responesValue above normal range indicates an increase in RBC cellular response from bone marrow. Laboratory - Hematology and Cell countsOrdered By: Pablo West on 03-30-2024 Anisocytosis Ql (Bld) 2+ [facility] Macrocytes detectionOrdered By: Pablo West on 03-30-2024 Macrocytes Ql (Bld) [facility]24 CNOV Office Visit (STEPHEN CC) ----- CANADA,KAROLINA RICKY ([id number]) 1955 F Date Time Provider Department 02/15/24 10:00 AM [facility] During your visit today, we recorded the following information about you: Pulse Blood pressure Weight Height 88/minute 110/54 57.2 kg 1.626 m Isis Best APRN.MUSIC MINISTER 02/15/2024 11:54 AM Signed Karolina Canada 68 year old female S/P Right carotid endarterectomy PROCEDURE: R CEA by Dr. Reilly DATE: 01/19/24 SUBJECTIVE: Karolina Canada returns to the office today for post-op evaluation following her recent surgery. Pt reports that she is doing OK. Denies significant neck pain but admits to some discomfort as she's been healing. No bleeding or drainage from the incision. Swelling has pretty much resolved. Still with numbness and occasional tingling from around R eye down toward ear, to jaw line forward to chin, and down neck. No issues with swallow or voice. Appetite is normal for her. No issues with bowel/bladder. Has had some issues with dizziness for past ~10/14 days, for which she's seen her PCP. She's on iron infusions for anemia (had 1 last week and is due for her second) and had a CT of her brain just this morning at [facility]. No focal neuro s/s of TIA or stroke noted - no amaurosis, facial drooping, or weakness/loss of function in an extremity. EXAM: Neurological Exam: Normal; Awake, alert, oriented, pleasant, and appropriate; Strength and sensation grossly intact; Dizziness resolved at this time; Tongue midline, smile symmetric, voice strong, swallow intact Right Neck Incision: Clean, dry, well approximated, and well healed; No edema, erythema, ecchymosis, or drainage noted IMPRESSION: Stable post op; OK to gradually resume daily activities as tolerated; Continue work-up for dizziness with PCP; Will check for CT results; Will proceed with scheduled post-op Carotid US as discussed -- recommend US now, @6 months, @1 year, then continued annual surveillance; Will refer to Cardiology in [place] as requested PLAN: Will call with results and recommendations following first post-op imaging. Encouraged pt to call with any questions or concerns. The patient is currently taking a statin: Yes The patient is currently taking aspirin: Yes Isis Best APRN.Isis Lucas APRN.CNP 02/15/2024 11:54 AM Signed Information on Stroke: 1. F.A.S.T: F - Facial Droop A - Arms: Raise both arms, one arm will drift downward S - Speech: Slurred or strange sounds when speaking T - Time: Call 911 immediately 2. If you have new or worsening stroke symptoms: Call 911 3. Examples of symptoms: A. Sudden weakness or numbness B. Sudden difficulty seeing C. Sudden confusion or slurred speech D. Sudden problems with balance, coordination E. Sudden severe headache, with no known cause F. Difficulty swallowing 4. Know your personal risks for stroke: Age, sex, race, family history, high cholesterol, alcohol intake, weight, inactive lifestyle, carotid or coronary artery disease. 5. Can you make changes in your personal risks? How? 6. Know what medications you are taking to avoid another stroke. Allergies As of Date: 02/15/2024 Noted Allergy Reaction PENICILLINS 01/18/2006 4 - Hives ACTOS (PIOGLITAZONE HCL) 05/11/2011 14 - Other: See Comments Comments: muscle spasms ADHESIVE TAPE (ROSINS) 04/12/2013 2 - Rash Comments: Skin comes off with tape Use paper tape ATORVASTATIN 03/24/2018 11 - Vomiting CLOPIDOGREL 01/23/2021 11 - Vomiting CODEINE 04/12/2013 8 - GI Upset 16 - Unknown Comments: Can take small amounts CORTISONE 01/18/2006 Comments: loses nerve sensation DARVOCET A500 (PROPOXYPHENE N-ANTWON*01/18/2006 4 - Hives EFFEXOR (VENLAFAXINE ANALOGUES) 05/11/2011 12 - Shortness of Breath GABAPENTIN 03/13/2019 5 - Intolerance HYDROCHLOROTHIAZIDE 03/13/2019 11 - Vomiting HYDROCODONE BITARTRATE 03/13/2019 8 - GI Upset JANUVIA (SITAGLIPTIN) 05/11/2011 14 - Other: See Comments Comments: muscle spasms LIPITOR (ATORVASTATIN CALCIUM) 05/11/2011 14 - Other: See Comments Comments: abdominal cramping LISINOPRIL 03/13/2019 14 - Other: See Comments LOSARTAN 03/13/2019 14 - Other: See Comments METOPROLOL 08/25/2019 6 - Diarrhea OXYCODONE 03/13/2019 5 - Intolerance OXYCONTIN (OXYCODONE HCL) 05/11/2011 14 - Other: See Comments Comments: headaches PERCOCET (OXYCODONE-ACETAMINOPHEN) 12/09/2012 8 - GI Upset PIOGLITAZONE 03/13/2019 8 - GI Upset PLAVIX (CLOPIDOGREL BISULFATE) 02/21/2016 6 - Diarrhea 11 - Vomiting PROZAC (FLUOXETINE HCL) 05/11/2011 14 - Other: See Comments Comments: low blood pressure SEASONAL ALLERGIES 03/20/2013 14 - Other: See Comments Comments: Itchy eyes, runny nose, sneezing STEROIDS (CORTICOSTEROIDS (GLUCOC*04/12/2013 8 - GI Upset Comments: deathly ill, joint pain SULFA (SULFONAMIDE ANT (more content not included)... Normal [facility] Absolute lymphocyte countOrd ered By: Radha Rowan on 02-03-2024 Lymphocytes Auto (Unsp spec) [#/Vol] 2.77 10*3/uL 0.83-4.[address] [facility] Automated lymphocyte count a s percentage of total leukocytesOrdered By: Radha Rowan on 02-03-2024 Lymphocytes/100 WBC Auto (Unsp spec) 24.4 % 19-[address] [facility] Basophil percentageOrdered B y: Radha Rowan on 02-03-2024 Basophils/100 WBC (Bld) 0.7 % 0-1 [facility] Bilirubin [Mass/Vol] 1.40 mg/dL 0.20-1.00 [facility] Comment on above: For patients on eltr ombopag therapy, use of Dimension [place] TBIL is not recommended. Chloride [Moles/Vol] 98 mmol/L 98-107 [facility] Eosinophils/100 WBC (Bld) 1.1 % 0-[address] [facility] Glucose [Mass/Vol] 112 mg/dL 74-106 [facility] Comment on above: Fasting Glucose resu lt from 100 to 125 mg/dL suggests IMPAIRED HOMEOSTASIS per A.D.A. criteria. Hemoglobin (Bld) [Mass/Vol] 8.5 g/dL 12.0-15.[address] [facility] Monocytes/100 WBC (Bld) 9.2 % 0-10 [facility] Neutrophils (Bld) [#/Vol] 7.3 10*3/uL 2.0-7.[address] [facility] Neutrophils/100 WBC (Bld) 64.2 % 47-[address] [facility] Potassium [Moles/Vol] 3.4 mmol/L 3.5-5.1 [facility] Protein [Mass/Vol] 7.5 g/dL 6.4-8.2 [facility] Sodium [Moles/Vol] 134 mmol/L 136-145 [facility] WBC (Bld) [#/Vol] 11.4 10*3/uL 4.4-11.0 [facility] Blood manual differential co mment interpretation (narrative result)Ordered By: Radha Rowan on 02-03-2024 Manual differential comment Fritz (Bld) [Interp] SCANNED [facility] Determination of erythrocyte mean corpuscular volume (MCV)Ordered By: Radha Rowan on 02-03-2024 MCV (RBC) [Entitic vol] 68.0 fL 81-99 [facility] Erythrocyte distribution wid th ratioOrdered By: Radha Rowan on 02-03-2024 Erythrocyte distribution width (RBC) [Ratio] 22.4 % 11.6-14.[address] [facility] Erythrocyte distribution wid th standard deviationOrdered By: Radha Rowan on 02-03-2024 Erythrocyte distribution width (RBC) [Entitic vol] 52.9 fL 35.1-43.9 [facility] Hematocrit Auto (Bld) [Volum e fraction]Ordered By: Radha Rowan on 02-03-2024 Hematocrit (Bld) [Volume fraction] 29.9 % 37-[address] [facility] Immature granulocytes/100 WB C Auto (Bld)Ordered By: Radha Rowan on 02-03-2024 Immature granulocytes/100 WBC (Bld) 0.400 % 0.0-0.[address] [facility] Comment on above: IG% - Immature Granu locytes (promyelocytes, myelocytes and metamyelocytes) > 1% indicates that a LEFT SHIFT is Present. Laboratory - Chemistry and C hemistry - challengeOrdered By: [facility] Southtelly Rwoan on 02-03-2024 Albumin/Globulin [Mass ratio] 0.9 {ratio} 0.9-2.[address] [facility] ALP [Catalytic activity/Vol] 107 U/L 45-[address] [facility] ALT [Catalytic activity/Vol] 14 U/L 13-[address] [facility] CO2 [Moles/Vol] 26.0 mmol/L 21.0-32.[address] [facility] Globulin (S) [Mass/Vol] 4.0 g/dL 2.2-4.2 [facility] Urea nitrogen/Creatinine [Mass ratio] 15.0 mg/mg 10-[address] [facility] Laboratory - Hematology and Cell countsOrdered By: [facility] Southtelly Rowan on 02-03-2024 Anisocytosis Ql (Bld) 2+ [facility] MCH (RBC) [Entitic mass] 19.3 pg 27.0-32.[address] [facility] MCHC (RBC) [Mass/Vol] 28.4 g/dL 32-36 [facility] Nucleated RBC/100 WBC (Bld) [Ratio] 0 % 0-[address] [facility] Platelet mean volume (Bld) [Entitic vol] 9.3 fL 6.2-12.[address] [facility] Platelets (Bld) [#/Vol] 382 10*3/uL 150-[address] [facility] No Panel InformationOrdered By: Radha Rowan on 02-03-2024 Estimated GFR (MDRD) Amer 77 mL/min >[address] [facility] Comment on above: GFR Calc Estimated GFR (MDRD) Non-Af Amer 64 mL/min >[address] [facility] Comment on above: Non- GFR Calc Vitamin D 25-Hydroxy 37.0 ng/mL [facility] Comment on above: Vitamin D 25(OH) Sta tus Range Deficiency <20 ng/mL (50nmol/L) Insufficiency 20 - 30 ng/mL (50 - 75 nmol/L) Sufficiency 30 - 100 ng/mL (75 - 250 nmol/L) Toxicity >100 ng/mL (>250 nmol/L) RBC Auto (Bld) [#/Vol]Ordere d By: Radha Rowan on 02-03-2024 RBC (Bld) [#/Vol] 4.40 10*6/uL 4.2-5.4 [facility] Serum or plasma calcium baldemar urement (mass/volume)Ordered By: Radha Rowan on 02-03-2024 Calcium [Mass/Vol] 8.8 mg/dL 8.5-10.1 [facility] Serum or plasma creatinine m easurement (mass/volume)Ordered By: Radha Rowan on 02-03-2024 Creatinine [Mass/Vol] 0.93 mg/dL 0.55-1.02 [facility] Comment on above: The validity of the calculated GFR & GFRAA in patients over 70 years has not been determined. Clinical correlation is essential. Serum or plasma thyroid stim ulating hormone (TSH) measurement (units/volume)Ordered By: Radha Rowan on 02-03-2024 TSH Qn 1.20 uIU/mL 0.358-3.[address] [facility] Serum or plasma urea nitroge n measurement (mass/volume)Ordered By: Radha Rowan on 02-03-2024 Urea nitrogen [Mass/Vol] 14 mg/dL 7-[address] [facility] Thin prep Papanicolaou smear with manual screeningOrdered By: Radha Rowan on 02-03-2024 Thin prep Papanicolaou smear with manual screening 2+ [facility] Thin prep Papanicolaou smear with manual screening 3.5 g/dL 3.2-5.[address] [facility] Thin prep Papanicolaou smear with manual screening 15 U/L 15-[address] [facility] Thin prep Papanicolaou smear with manual screening 10 5-[address] [facility] Absolute lymphocyte countOrd ered By: Pablo West on 01-25-2024 Lymphocytes Auto (Unsp spec) [#/Vol] 1.78 10*3/uL 0.83-4.[address] [facility] Automated lymphocyte count a s percentage of total leukocytesOrdered By: Pablo West on 01-25-2024 Lymphocytes/100 WBC Auto (Unsp spec) 25.2 % 19-[address] [facility] Basophil percentageOrdered B y: Pablo West on 01-25-2024 Basophils/100 WBC (Bld) 1.0 % 0-1 [facility] Bilirubin [Mass/Vol] 0.50 mg/dL 0.20-1.00 [facility] Comment on above: For patients on eltr ombopag therapy, use of Dimension [place] TBIL is not recommended. Chloride [Moles/Vol] 103 mmol/L 98-107 [facility] Eosinophils/100 WBC (Bld) 1.8 % 0-[address] [facility] Glucose [Mass/Vol] 205 mg/dL 74-106 [facility] Comment on above: Glucose result great er than or equal to 200 mg/dLsuggests DIABETES MELLITUS per A.D.A. criteria. Hemoglobin (Bld) [Mass/Vol] 8.4 g/dL 12.0-15.[address] [facility] LDH [Catalytic activity/Vol] 225 U/L 84-[address] [facility] Monocytes/100 WBC (Bld) 6.8 % 0-10 [facility] Neutrophils (Bld) [#/Vol] 4.6 10*3/uL 2.0-7.[address] [facility] Neutrophils/100 WBC (Bld) 64.8 % 47-[address] [facility] Potassium [Moles/Vol] 3.9 mmol/L 3.5-5.1 [facility] Protein [Mass/Vol] 7.2 g/dL 6.4-8.2 [facility] Sodium [Moles/Vol] 133 mmol/L 136-145 [facility] WBC (Bld) [#/Vol] 7.1 10*3/uL 4.4-11.0 [facility] Blood manual differential co mment interpretation (narrative result)Ordered By: Pablo West on 01-25-2024 Manual differential comment Fritz (Bld) [Interp] SCANNED [facility] Determination of erythrocyte mean corpuscular volume (MCV)Ordered By: Pablo West on 01-25-2024 MCV (RBC) [Entitic vol] 67.4 fL 81-99 [facility] Erythrocyte distribution wid th ratioOrdered By: Pablo West on 01-25-2024 Erythrocyte distribution width (RBC) [Ratio] 22.1 % 11.6-14.[address] [facility] Erythrocyte distribution wid th standard deviationOrdered By: Pablo West on 01-25-2024 Erythrocyte distribution width (RBC) [Entitic vol] 52.0 fL 35.1-43.9 [facility] Erythrocyte sedimentation ra teOrdered By: Pablo West on 01-25-2024 ESR (Bld) [Velocity] 48 mm/h 0-30 [facility] Hematocrit Auto (Bld) [Volum e fraction]Ordered By: Pablo West on 01-25-2024 Hematocrit (Bld) [Volume fraction] 30.6 % 37-[address] [facility] Hemoglobin in reticulocytes (mass per reticulocyte)Ordered By: Pablo West on 01-25-2024 Hemoglobin (Reticulocytes) [Entitic mass] 20.4 pg 30-[address] [facility] Hypochromatic red blood cell detectionOrdered By: Pablo West on 01-25-2024 Hypochromia Ql (Bld) 1+ [facility] Immature granulocytes/100 WB C Auto (Bld)Ordered By: Pablo West on 01-25-2024 Immature granulocytes/100 WBC (Bld) 0.400 % 0.0-0.[address] [facility] Comment on above: IG% - Immature Granu locytes (promyelocytes, myelocytes and metamyelocytes) > 1% indicates that a LEFT SHIFT is Present. Iron measurement (mass/mass) Ordered By: Pablo West on 01-25-2024 Iron (Unsp spec) [Mass/Mass] 15 ug/dL 50-[address] [facility] Laboratory - Chemistry and C hemistry - challengeOrdered By: Pablo West on 01-25-2024 Albumin/Globulin [Mass ratio] 0.8 {ratio} 0.9-2.[address] [facility] ALP [Catalytic activity/Vol] 92 U/L 45-[address] [facility] ALT [Catalytic activity/Vol] 15 U/L 13-[address] [facility] CO2 [Moles/Vol] 27.0 mmol/L 21.0-32.[address] [facility] Ferritin [Mass/Vol] 23 ng/mL 8-252 [facility] Globulin (S) [Mass/Vol] 4.0 g/dL 2.2-4.2 [facility] Urea nitrogen/Creatinine [Mass ratio] 12.7 mg/mg 10-[address] [facility] Laboratory - Hematology and Cell countsOrdered By: Pablo West on 01-25-2024 Anisocytosis Ql (Bld) 2+ [facility] MCH (RBC) [Entitic mass] 18.5 pg 27.0-32.[address] [facility] MCHC (RBC) [Mass/Vol] 27.5 g/dL 32-36 [facility] Nucleated RBC/100 WBC (Bld) [Ratio] 0 % 0-[address] [facility] Platelet mean volume (Bld) [Entitic vol] 9.0 fL 6.2-12.[address] [facility] Platelets (Bld) [#/Vol] 298 10*3/uL 150-[address] [facility] No Panel InformationOrdered By: Pablo West on 01-25-2024 C-Reactive Protein Extended Range 8.26 mg/L 0.0-3.[address] [facility] Comment on above: C-Reactive Protein ( CRP) provides useful information for thediagnosis, therapy and monitoring of inflammatory processesand associated diseases. For the evaluation of Relative Riskfor Cardiovascular Disease, a High Sensitivity CRP (HSCRP)should be ordered. Estimated GFR (MDRD) Amer 93 mL/min >[address] [facility] Comment on above: GFR Calc Estimated GFR (MDRD) Non-Af Amer 77 mL/min >[address] [facility] Comment on above: Non- GFR Calc Immature Reticulocyte Fraction 27.60 % 3.00-15.[address] [facility] Total Iron Binding Capacity 385 ug/dL 250-[address] [facility] Ovalocyte detectionOrdered B y: Pablo West on 01-25-2024 Ovalocytes LM Ql (Bld) 1+ [facility] RBC Auto (Bld) [#/Vol]Ordere d By: Pablo Brett on 01-25-2024 RBC (Bld) [#/Vol] 4.54 10*6/uL 4.2-5.4 [facility] Reticulocytes Auto (Bld) [#/ Vol]Ordered By: Pablo West on 01-25-2024 Reticulocytes/100 RBC (Bld) 2.10 % 0.5-1.[address] [facility] Serum or plasma calcium baldemar urement (mass/volume)Ordered By: Pablo [facility] on 01-25-2024 Calcium [Mass/Vol] 8.6 mg/dL 8.5-10.1 [facility] Serum or plasma carcinoembry onic antigen measurement (mass/volume)Ordered By: Pablo West on 01-25-2024 Carcinoembryonic Ag [Mass/Vol] 7.2 ng/mL High 0.0-4.[address] [facility] Comment on above: Nonsmokers <3.9 Smok ers <5.6[employer] Electrochemiluminescence Immunoassay(ECLIA)Values obtained with different assay methods or kitscannot be used interchangeably. Results cannot beinterpreted as absolute evidence of the presence orabsence of malignant disease.Performed at: [facility] [address] [id number] Director: Jose Le PhD, Phone: [phone] Serum or plasma creatinine m easurement (mass/volume)Ordered By: Pablo West on 01-25-2024 Creatinine [Mass/Vol] 0.79 mg/dL 0.55-1.02 [facility] Comment on above: The validity of the calculated GFR & GFRAA in patients over 70 years has not been determined. Clinical correlation is essential. Serum or plasma iron saturat ion measurement (mass fraction)Ordered By: Pablo West on 01-25-2024 Iron saturation [Mass fraction] 3.9 % 15.0-55.[address] [facility] Serum or plasma urea nitroge n measurement (mass/volume)Ordered By: Pablo West on 01-25-2024 Urea nitrogen [Mass/Vol] 10 mg/dL 7-[address] [facility] Thin prep Papanicolaou smear with manual screeningOrdered By: Pablo West on 01-25-2024 Thin prep Papanicolaou smear with manual screening 2+ [facility] Thin prep Papanicolaou smear with manual screening 3.2 g/dL 3.2-5.[address] [facility] Thin prep Papanicolaou smear with manual screening 15 U/L 15-[address] [facility] Thin prep Papanicolaou smear with manual screening 3 5-[address] 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 Post Anesthesia Patient Status Patient Evaluation: PACU. PACU/ICU Patient Condition: stable. Anticipated Disposition: ICU planned admission. Neurological Status: aware and responsive. Pulmonary Status: breathing comfortably on supplemental oxygen Airway Control: returned to baseline unsupported. Cardiovascular Status: stable. Pain Management: clinically adequate Postoperative Hydration: acceptable. Intraoperative Events: no significant anesthesia events Post Operative Nausea/Vomiting Status: no significant post operative nausea or vomiting Recommendation: continue current plan of care and further care per PACU/ICU/floor team. Anesthesia Observations No Documentation SIGNATURE: Tree Neal MD PATIENT NAME: Karolina Canada DATE: January 20, 2024 TIME: 8:52 AM CSN: [id number] Normal [facility] Basic metabolic 2000 panelon 01-20-2024 Anion gap [Moles/Vol] 10 mmol/L Normal 9-18 [facility] Comment on above: Order Comment: Speci men Type: BLOOD SPECIMEN Ordering Facility: [facility] Address: [address] [place] [address] Performed By: #### 2 4321-2 #### [facility] CLIA [id number] [address] [place] [address] [place] Calcium [Mass/Vol] 8.6 mg/dL Normal 8.5-10.2 [facility] Comment on above: Order Comment: Speci men Type: BLOOD SPECIMEN Ordering Facility: [facility] Address: [address] [place] [address] Performed By: #### 2 4321-2 #### [facility] CLIA [id number] [address] [place] [address] [place] Chloride [Moles/Vol] 103 mmol/L Normal 97-105 [facility] Comment on above: Order Comment: Speci men Type: BLOOD SPECIMEN Ordering Facility: [facility] Address: [address] [place] [address] Performed By: #### 2 4321-2 #### [facility] CLIA [id number] [address] [place] [address] [place] CO2 [Moles/Vol] 24 mmol/L Normal 22-30 [facility] Comment on above: Order Comment: Speci men Type: BLOOD SPECIMEN Ordering Facility: [facility] Address: [address] [place] [address] Performed By: #### 2 4321-2 #### [facility] CLIA [id number] 1 [place] [address] [place] Creatinine [Mass/Vol] 0.79 mg/dL Normal 0.58-0.96 [facility] Comment on above: Order Comment: Speci men Type: BLOOD SPECIMEN Ordering Facility: [facility] Address: [address] [place] [address] Performed By: #### 2 4321-2 #### [facility] CLIA [id number] [address] Creatinine and Glomerular filtration rate.predicted panel (S/P/Bld) 82 mL/min/1.73m??? Normal >=60 [facility] Comment on above: Order Comment: Ravinder nelson Type: BLOOD SPECIMEN Ordering Facility: [facility] Address: [address] [place] [address] Result Comment: Yasmine mated Glomerular Filtration Rate (eGFR) is calculated using the 2020 CKD-EPI creatinine equation. This equation utilizes serum creatinine, sex, and age as parameters. The creatinine assay has traceable calibration to isotope dilution-mass spectrometry. Refer to KDIGO guidelines for clinical interpretation. In patients with unstable renal function, e.g. those with acute kidney injury, the eGFR may not accurately reflect actual GFR. Performed By: #### 2 4321-2 #### [facility] CLIA [id number] [address] [place] [address] [place] Glucose [Mass/Vol] 121 mg/dL High 74-99 [facility] Comment on above: Order Comment: Ravinder nelson Type: BLOOD SPECIMEN Ordering Facility: [facility] Address: [address] [place] [address] Result Comment: The [place] Diabetes Association (ADA) provides guidance for cutoff values for fasting glucose and random glucose. The ADA defines fasting as no caloric intake for at least 8 hours. Fasting plasma glucose results between 100 to 125 mg/dL indicate increased risk for diabetes (prediabetes). Fasting plasma glucose results greater than or equal to 126 mg/dL meet the criteria for diagnosis of diabetes. In the absence of unequivocal hyperglycemia, results should be confirmed by repeat testing. In a patient with classic symptoms of hyperglycemia or hyperglycemic crisis, random plasma glucose results greater than or equal to 200 mg/dL meet the criteria for diagnosis of diabetes. Reference: Standards of Medical Care in Diabetes 2016, [place] Diabetes Association. Diabetes Care. 2016.39(Suppl 1). Performed By: #### 2 4321-2 #### [facility] CLIA [id number] [address] [place] Potassium [Moles/Vol] 4.1 mmol/L Normal 3.7-5.1 [facility] Comment on above: Order Comment: Speci men Type: BLOOD SPECIMEN Ordering Facility: [facility] Address: [address] [place] [address] Performed By: #### 2 4321-2 #### [facility] CLIA [id number] [address] [place] Sodium [Moles/Vol] 137 mmol/L Normal 136-144 [facility] Comment on above: Order Comment: Speci men Type: BLOOD SPECIMEN Ordering Facility: [facility] Address: [address] [place] [address] Performed By: #### 2 4321-2 #### [facility] CLIA [id number] [address] STATES [facility] Urea nitrogen [Mass/Vol] 10 mg/dL Normal 7-21 [facility] Comment on above: Order Comment: Speci men Type: BLOOD SPECIMEN Ordering Facility: [facility] Address: [address] [place] [address] Performed By: #### 2 4321-2 #### [facility] CLIA [id number] [address] STATES OF [facility] CBC panel Auto (Bld)on 01-20 Erythrocyte distribution width (RBC) [Ratio] 21.7 % High 11.5-15.0 [facility] Comment on above: Order Comment: Speci men Type: BLOOD SPECIMEN Ordering Facility: [facility] Address: [address] [place] [address] Performed By: #### 5 8410-2 #### [facility] CLIA [id number] [address] OF [facility] Hematocrit (Bld) [Volume fraction] 26.2 % Low 36.0-46.0 [facility] Comment on above: Order Comment: Speci men Type: BLOOD SPECIMEN Ordering Facility: [facility] Address: [address] [place], [place] [address] Performed By: #### 5 8410-2 #### [facility] CLIA [id number] [address] Hemoglobin (Bld) [Mass/Vol] 7.3 g/dL Low 11.5-15.5 [facility] Comment on above: Order Comment: Speci men Type: BLOOD SPECIMEN Ordering Facility: [facility] Address: [address] [place] [address] Performed By: #### 5 8410-2 #### [facility] CLIA [id number] [address] MCH (RBC) [Entitic mass] 19.1 pg Low 26.0-34.0 [facility] Comment on above: Order Comment: Speci men Type: BLOOD SPECIMEN Ordering Facility: [facility] Address: [address] [place] [address] Performed By: #### 5 8410-2 #### [facility] CLIA [id number] [address] MCHC (RBC) [Mass/Vol] 27.9 g/dL Low 30.5-36.0 [facility] Comment on above: Order Comment: Speci men Type: BLOOD SPECIMEN Ordering Facility: [facility] Address: [address] [place] [address] Performed By: #### 5 8410-2 #### [facility] CLIA [id number] [address] MCV (RBC) [Entitic vol] 68.4 fL Low 80.0-100.0 [facility] Comment on above: Order Comment: Speci men Type: BLOOD SPECIMEN Ordering Facility: [facility] Address: [address] [place] [address] Performed By: #### 5 8410-2 #### [facility] CLIA [id number] [address] OF [facility] Nucleated RBC (Bld) [#/Vol] 10*3/uL Normal <0.01 [facility] Comment on above: Order Comment: Speci men Type: BLOOD SPECIMEN Ordering Facility: [facility] Address: [address] [place] [address] Performed By: #### 5 8410-2 #### [facility] CLIA [id number] [address] [place] Platelet mean volume (Bld) [Entitic vol] 9.0 fL Normal 9.0-12.7 [facility] Comment on above: Order Comment: Speci men Type: BLOOD SPECIMEN Ordering Facility: [facility] Address: [address] [place] [address] Performed By: #### 5 8410-2 #### [facility] CLIA [id number] [address] [place] Platelets (Bld) [#/Vol] 257 10*3/uL Normal 150-400 [facility] Comment on above: Order Comment: Speci men Type: BLOOD SPECIMEN Ordering Facility: [facility] Address: [address] [place] [address] Performed By: #### 5 8410-2 #### [facility] CLIA [id number] [address] [place] [address] [place] RBC (Bld) [#/Vol] 3.83 10*6/uL Low 3.90-5.20 [facility] Comment on above: Order Comment: Speci men Type: BLOOD SPECIMEN Ordering Facility: [facility] Address: [address] [place] [address] Performed By: #### 5 8410-2 #### [facility] CLIA [id number] [address] [place] WBC (Bld) [#/Vol] 12.48 10*3/uL High 3.70-11.00 [facility] Comment on above: Order Comment: Speci men Type: BLOOD SPECIMEN Ordering Facility: [facility] Address: [facility] [place] [address] Performed By: #### 5 8410-2 #### [facility] CLIA [id number] [address] OF [facility] CNDSon 01-20-2024 CNDS HNO ID: [id number] Author: DEYANIRA REILLY MD Service: General Surgery Author Type: Resident Type: Discharge Summary Filed: 01/21/2024 09:26 Note Text: ----- Attestation signed by Deyanira Reilly MD at 01/21/2024 9:26 AM I personally saw and examined the patient on 01/20/24. I reviewed the resident's note. I agree with the resident's assessment and plan unless otherwise noted. ----- DISCHARGE SUMMARY PATIENT NAME: Karolina Canada Code Status: Not on file Highest Readmission Risk Score: 17 The 30 day readmissions risk score is derived from an internally validated risk model which evaluates patient level characteristics, utilization history, medication orders and lab results up until the day of discharge. Patients with a score of 40 or above are considered highest risk for readmission. Specific patient level drivers will be listed at the bottom of the summary. Admission Information Admission Information ADMIT DATE: 01/19/2024 DISCHARGE DATE: 01/20/2024 MY DOCTORS AND MEDICAL TEAM: My Main Hospital Doctor: Deyanira Reilly MD Primary Care Provider: Tyrel Sy MD My Medical Team Members: Treatment Team: Attending Provider: Deyanira Reilly MD MY CONDITION AT DISCHARGE: Stable REASON I WAS IN THE HOSPITAL: Right carotid endarterectomy SUMMARY OF WHAT HAPPENED WHILE I WAS IN THE HOSPITAL: Patient was admitted to [facility] on 01/19/24 for elective carotid endarterectomy. She tolerated the operation well and was admitted to the CVICU post operatively for close monitoring. Her hospital course was complicated by hypertension requiring nitro drip. On 01/20, the patient was discharged in stable condition with instruction to follow up outpatient with Dr. Reilly within two weeks. OTHER PROBLEMS/DIAGNOSIS: Principal Problem: Carotid stenosis, asymptomatic, bilateral Resolved Problems: * No resolved hospital problems. * OPERATIONS PERFORMED WHILE IN THE HOSPITAL: Right carotid endarterectomy IMPORTANT TEST/PROCEDURES: No procedures performed TEST RESULTS NOT AVAILABLE AT THIS TIME: No pending results Discharge Disposition Discharge Disposition: Home With Self Care Activity When You Leave the Hospital Other: You may shower 24 hours after your operation. Do not submerge your wounds in water (ie swimming, hot tub, bath) for the next 3-4 weeks Avoid vigorous activity for the next 3-4 weeks Diet Instructions Resume your pre-hospital diet For Pain When You Leave the Hospital Other: Continue to take daily aspirin Use acetaminophen (Tylenol) as recommended on the bottle Wound/Surgical Site Care Your incision has skin glue. It will peel off on its own. It can get wet Call Your Doctor If Other: You develop any new numbness, tingling, weakness You develop increasing swelling and bruising over your surgical site There is severe pain at the operative site You have a severe headache You have lightheadedness, fainting, or confusion You have persistent or heavy bleeding You have redness, swelling, pus or drainage from the wound Your temperature is greater than 101F Follow Up Appointments Follow-Up Appointment You have a scheduled post op visit at Dr. Reilly's office on 02/15/2024 at 10:00 AM When: In 2 weeks Patient/Parents to call for appointment?: Scheduled Deyanira Reilly MD [phone] [facility] [address] [facility] [address] PCP Requested Referral Additional Provider to Provider Information: Patient was admitted to [facility] on 01/19/24 for elective carotid endarterectomy. She tolerated the operation well and was admitted to the CVICU post operatively for close monitoring. Her hospital course was complicated by hypertension requiring nitro drip. On 01/20, the patient was discharged in stable condition with instruction to follow up outpatient with Dr. Reilly within two weeks. Treatment Team: Attending Provider: Deyanira Reilly MD READY SCHEDULED WITH A [facility] PROVIDER: Future Appointments Date Time Provider Department Center 02/15/2024 10:00 AM Isis Best, MASTER OCEAN.MUSIC MINISTER [facility] 06/02/2024 2:00 PM Dede Santa MD [facility] ALLERGIES Allergen Reactions Penicillins Hives Actos [Pioglitazone* [...] [Atorvastat* Other: See Comments abdominal cramping Lisinopril Ot (more content not included)... [facility] OPERATIVE NOon 01-20-2024 OPERATIVE NO HNO ID: [id number] Author: DEYANIRA REILLY MD Service: Vascular Surgery Author Type: Physician Type: Operative Report Filed: 01/20/2024 10:58 Note Text: [facility] - Operative Report KAROLINA CANADA : 1955 AGE: 68. SEX: F PATIENT TYPE: I HOSP SVC: Surgical LOCATION: [id number] ATTENDING PHYSICIAN: DEYANIRA REILLY CSN NUMBER: [id number] DATE OF SURGERY/PROCEDURE: 01/19/2024 INCISION/PROCEDURE START TIME: 9:35 AM INCISION CLOSE/PROCEDURE END TIME: 11:30 AM PREOPERATIVE DIAGNOSIS: Right carotid stenosis. POSTOPERATIVE DIAGNOSIS: Right carotid stenosis. SURGEON: Deyanira Reilly MD HEAVY EQUIPMENT PLUMBING SUPERVISOR: Resident, Edouard Parker. SURGERY/PROCEDURE: Right carotid endarterectomy. ANESTHESIA: General. DESCRIPTION OF PROCEDURE: The patient was seen in the preoperative area where risks and benefits of the procedure reviewed with the patient. She was consented for the procedure and brought back to the operating room where general anesthesia was induced. She was prepped and draped in a sterile fashion. Appropriate preoperative antibiotics were given at the time of induction. Incision was made over the anterior border of the sternocleidomastoid, dissected down to the subcutaneous tissue and platysma. Sternocleidomastoid was identified and retracted laterally. Internal jugular vein was then identified. Facial vein was identified and ligated with 2 silk ties and hemoclips. The carotid artery was identified in normal anatomic position. This was dissected free from the surrounding tissues and isolated with a vessel loop proximally over the common carotid and distally over the external and internal carotid arteries. The patient was then bolused with heparin. ACTs were monitored throughout the case. Once ACT reached therapeutic range, the internal carotid was clamped followed by the common and external carotid arteries. Continuous EEG monitoring was performed throughout. Arteriotomy was then made from the common extending into the internal carotid artery. Endarterectomy was then performed in standard fashion including eversion of the external carotid artery. Bovine pericardial patch was then usedfor the patch angioplasty. This was completed with a running 6-0 Prolene stitch. Prior to completion of the anastomosis, the common carotid was opened and flushed forward. Good inflow was noted. Patch angioplasty was then completed. The internal carotid, common, and external carotid were opened. Flow was verified with the Doppler in the internal, external, and common carotid arteries. No changes were noted on the EEG throughout the case. Hemostasis was achieved within the wound. Heparin was then reversed with protamine. Incision was then closed with interrupted Vicryl sutures and running 4-0 undyed Monocryl in the skin. The patient tolerated the procedure well. She will be sent to the ICU for further monitoring. Deyanira Reilly MD LM:[id number] /[id number] [facility] ANES PRE-OPon 01-19-2024 ANES PRE-OP HNO ID: [id number] Author: TREE NEAL MD Service: Anesthesiology Author Type: Physician Type: Anesthesia Preprocedure Evaluation Filed: 01/19/2024 09:54 Note Text: ANESTHESIOLOGY DAY OF SURGERY NOTE : 1955 Procedure Information Anesthesia Start Date/Time: 01/19/24 0839 Procedure: ENDARTERECTOMY CAROTID ADULT-right carotid endarterectomy (Right: Neck) Location: [facility] / [facility] Surgeons: Deyanira Reilly MD Estimated body mass index is 22.31 kg/m? as calculated from the following: Height as of 01/12/24: 162.6 cm (5' 4). Weight as of 01/12/24: 59 kg (130 lb). 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 I - PHYSICAL EVALUATION AIRWAY Patient intubated: No. Tracheostomy tube not present Mallampati: II. TM distance: >3 FB. Neck ROM: full ROM without neurological symptoms. Mouth opening: adequate. Short neck: no. Thick neck: no Finley present: no DENTAL Dental findings: edentulous. II - ANESTHESIA PLAN ASA Score: 4 Anesthetic Plan: general Airway type: ETT The patient is a current smoker. NPO Status: adequate Beta Gale Monitoring Plan Monitoring plan: standard ASA and invasive hemodynamic monitoring. Monitoring method: arterial Line Post Procedure Analgesic Plan Postoperative analgesic plan: multimodal analgesia, per surgical service and go to ICU. Informed Consent Anesthetic risks, benefits, alternatives, personnel and consent discussed: yes. Patient / Responsible Republican agrees to proceed: yes Patient / Surrogate agrees to blood products: Yes Potential Anesthesia issues that may suggest increased risk of complications or contraindication to planned procedure: none. Vitals Value Taken Time BP 128/49 01/19/24 0657 Pulse 62 01/19/24 0656 Resp 18 01/19/24 0656 Temp 36.3 ?C (97.3 ?F) 01/19/24 0656 SpO2 99 % 01/19/24 0656 Vitals shown include unfiled device data. Facility-Administered Medications as of 01/19/2024 Medication Dose Route Frequency - lidocaine 10 mg/mL (1 %) 1-2 mg injection (XYLOCAINE) 0.1-0.2 mL INTRADERMAL PRN - NaCl 0.9% iv flush bag 20 mL INTRAVENOUS PRN - vancomycin 750 mg in D5W 250 mL Vial-Bag (VANCOCIN) 0.015 g/kg/dose INTRAVENOUS Pre-Op Once Outpatient Medications as of 01/19/2024 Medication Sig - ranolazine SR (RANEXA) 1,000 mg tab ER 12 hr Take 1 tablet by mouth once daily. - metoprolol succinate ER (TOPROL XL) 50 mg 24 hr tablet Take 1 tablet by mouth every afternoon. - ezetimibe (ZETIA) 10 mg tablet Take 1 tablet by mouth every afternoon. - atorvastatin (LIPITOR) 80 mg tablet Take 1 tablet by mouth every afternoon. - escitalopram oxalate (LEXAPRO) 20 mg tablet Take 20 mg by mouth every morning. - famotidine (PEPCID) 20 mg tablet Take by mouth once daily. - nitroglycerin sublingual (NITROQUICK) 0.4 mg SL tablet Dissolve 1 tablet under the tongue as needed. FOR CHEST PAIN. IF NO RELIEF CALL 911 - isosorbide mononitrate ER (IMDUR) 30 mg 24 hr tablet Take 1 tablet by mouth once daily. - glimepiride (AMARYL) 4 mg tablet Take 4 mg by mouth daily with breakfast. - linagliptin (TRADJENTA) 5 mg tab Take 5 mg by mouth once daily. - aspirin, enteric coated (ECOTRIN LOW STRENGTH) 81 mg EC tablet Take 1 tablet by mouth once daily. - Blood Pressure Monitor kit Check home blood pressure and heart rate daily. I have interviewed and examined the patient. I have reviewed the medical record and/or the pre-anesthesia evaluation, pertinent labs, and test results. This contains updated information obtained within 48 hours of Surgery/Procedure. SIGNATURE: Tree Neal MD PATIENT NAME: Karolina Canada DATE: January 19, 2024 TIME: 9:40 AM CSN: [id number] [facility] BRIEF OP NOTon 01-19-2024 BRIEF OP NOT HNO ID: [id number] Author: DEYANIRA REILLY MD Service: General Surgery Author Type: Resident Type: Brief Op Note Filed: 01/20/2024 10:26 Note Text: ----- Attestation signed by Deyanira Reilly MD at 01/20/2024 10:26 AM I personally saw and examined the patient on 01/19/24. I reviewed the resident's note. I agree with the resident's assessment and plan unless otherwise noted. ----- BRIEF OPERATIVE / PROCEDURE NOTE LOG ID: [id number] Surgery/Procedure Date: 01/19/2024 Incision/Procedure Start Time: 9:35 AM Incision Close/Procedure End Time: 11:30 AM Surgeon(s)/Proceduralist( s) and Top Flavor Attendant(s): Surgeon(s) and Role: * Deyanira Reilly MD - Primary * Andrew Parker DO - Resident - Assisting Physician Top Flavor Attendant: Randi Hennessy PA-C Procedure(s): Procedure(s): ENDARTERECTOMY CAROTID ADULT-right carotid endarterectomy Procedure(s): GWEN Carotid: CAROTID ENDARTERECTOMY: asymptomatic Shunt Use: No Drain: No Stump Pressure: No Anesthesia: General ASA Class: Findings: Right carotid endarterectomy, Large plaque extending from common carotid to internal iliac artery Please see operative report for full details Estimated Blood Loss: 20 mls IV Fluids: Per anesthesia report Urine output: Per anesthesia report Specimens: ID Type Source Tests Collected by Time Destination A : Right Endarterectomy Plaque Tissue PLA[facility] SURGICAL PATHOLOGY Deyanira Reilly MD 01/19/2024 10:27 AM Complications: None Drains: None Wound Classification: Class 1, operative wound clean, non-traumatic, with no inflammation encountered, no break in technique, gastrointestinal and genitor-urinary tracts not entered IMPLANTS: Implant Name Type Inv. Item Serial No. Knee Bolter Lot No. LRB No. Used Action PATCH XENOSURE BOVINE PERICARDIAL TISSUE 8X.8CM VASCULAR STERILE - [id number] Patch PATCH XENOSURE BOVINE PERICARDIAL TISSUE 8X.8CM VASCULAR STERILE 0000 [facility] [facility] [id number] Right 1 Implanted PRE-OP/PRE-PROCEDURE DIAGNOSIS: Right Carotid Artery Stenosis POST-OP/POST-PROCEDURE DIAGNOSIS: Same as Preop From 5pm to 6 am and on weekends, please page surgery on-call [phone] (RNF) or [phone] (ICU) SIGNATURE: Andrew Parker DO PATIENT NAME: Karolina Canada DATE: January 19, 2024 TIME: 11:37 AM PAGER/CONTACT #: [phone] [facility] SURGICAL PATHOLOGYon 024 CASE REPORT [facility] Comment on above: Order Comment: Speci men Type: TISSUE SPECIMEN Ordering Facility: [facility] Address: [address] [place] [address] Result Comment: Surg ical Pathology Report Case: [id number] Authorizing Provider: Deyanira Reilly MD Collected: 01/19/2024 10:27 AM Ordering Location: [facility] Received: 01/19/2024 01:47 PM Pathologist: Tashi Snow MD Specimen: PLAQUE, Right Endarterectomy Plaque Performed By: #### S #### [facility] CLIA [id number] [address] CLINICAL HISTORY [facility] Comment on above: Order Comment: Speci men Type: TISSUE SPECIMEN Ordering Facility: [facility] Address: [address] [place] [address] Result Comment: Pre- op diagnosis: 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 A theromatous plaque of right carotid artery, endarterectomy: - Partially calcified atheromatous plaque. Performed By: #### S #### [facility] CLIA [id number] [address] [place] [address] FINAL PERFORMING LAB [facility] Comment on above: Order Comment: Speci men Type: TISSUE SPECIMEN Ordering Facility: [facility] Address: [address] [place] [address] Result Comment: Diag nostic interpretation performed at [facility], [address] [place] [address] CLIA# [id number] Perforator Loader: Tashi Snow M.D. Performed By: #### S #### [facility] CLIA [id number] [address] [place] [address] GROSS DESCRIPTION A. PLAQUE [facility] Comment on above: Order Comment: Speci men Type: TISSUE SPECIMEN Ordering Facility: [facility] Address: [address] [place] [address] Result Comment: Rece ived in formalin labeled right endarterectomy plaque is a welsh-yellow slightly calcified tubular structure measuring 3 x 0.6 x 0.5 cm. Vessel wall or thrombi are not present. The specimen is serially sectioned and submitted entirely in A1 after light decalcification. Gross examination performed at [facility], [address] [place] [address] CLIA#[id number] OLS January 19, 2024 3:06 PM Performed By: #### S #### [facility] CLIA [id number] [address] [place] [address] TYPE + SCREENon 01-19-2024 ABO O [facility] Comment on above: Order Comment: Speci men Type: BLOOD SPECIMEN Ordering Facility: [facility] Address: [address] [place] [address] Performed By: #### T SCR #### [facility] CLIA [id number] [address] HISTORICAL AB SCR STATUS Negative [facility] Comment on above: Order Comment: Speci men Type: BLOOD SPECIMEN Ordering Facility: [facility] Address: [address] [place] [address] Performed By: #### T SCR #### [facility] CLIA [id number] [address] Rh Nom (Bld) Positive [facility] Comment on above: Order Comment: Speci men Type: BLOOD SPECIMEN Ordering Facility: [facility] Address: [address] [place] [address] Performed By: #### T SCR #### [facility] CLIA [id number] [address] TYPE AND SCREEN EXPIRATION 01/22/2024 23:59 [facility] Comment on above: Order Comment: Speci men Type: BLOOD SPECIMEN Ordering Facility: [facility] Address: [address] [place] [address] Performed By: #### T SCR #### [facility] CLIA [id number] [address] NURSING PROGon 01-17-2024 NURSING PROG HNO ID: [id number] Author: MIN FRITZ APRN.MUSIC MINISTER Service: General Surgery Author Type: Nurse Practitioner Type: Nursing Progress Note Filed: 01/17/2024 10:41 Note Text: ----- Summary: anesthesia ----- Cardiac clearance scanned in epic 01/14/2024. [facility] Nara 01-13-2024 CNPN Telephone (AGCARDPOB ) ----- KAROLINA CANADA ([id number]) 1955 F Date Time Provider Department 01/13/24 DEDE SANTA During your visit today, we recorded the following information about you: Elizabeth Weiss 01/13/2024 3:54 PM Signed Cardiac clearance received from Dr. Kimberlee perez/ [facility] for a right carotid endarterectomy on 01/19/24. Clearance scanned in and in De. Santa's box to be reviewed. Elizabeth Weiss January 13, 2024 3:54 PM Elizabeth Weiss 01/14/2024 1:30 PM Signed Completed clearance scanned in and faxed back on 01/14/24. Elizabeth Weiss January 14, 2024 1:30 PM Allergies As of Date: 01/13/2024 Noted Allergy Reaction PENICILLINS 01/18/2006 4 - Hives ACTOS (PIOGLITAZONE HCL) 05/11/2011 14 - Other: See Comments Comments: muscle spasms ADHESIVE TAPE (ROSINS) 04/12/2013 2 - Rash Comments: Skin comes off with tape Use paper tape ATORVASTATIN 03/24/2018 11 - Vomiting CLOPIDOGREL 01/23/2021 11 - Vomiting CODEINE 04/12/2013 8 - GI Upset 16 - Unknown Comments: Can take small amounts CORTISONE 01/18/2006 Comments: loses nerve sensation DARVOCET A500 (PROPOXYPHENE N-ANTWON*01/18/2006 4 - Hives EFFEXOR (VENLAFAXINE ANALOGUES) 05/11/2011 12 - Shortness of Breath GABAPENTIN 03/13/2019 5 - Intolerance HYDROCHLOROTHIAZIDE 03/13/2019 11 - Vomiting HYDROCODONE BITARTRATE 03/13/2019 8 - GI Upset JANUVIA (SITAGLIPTIN) 05/11/2011 14 - Other: See Comments Comments: muscle spasms LIPITOR (ATORVASTATIN CALCIUM) 05/11/2011 14 - Other: See Comments Comments: abdominal cramping LISINOPRIL 03/13/2019 14 - Other: See Comments LOSARTAN 03/13/2019 14 - Other: See Comments METOPROLOL 08/25/2019 6 - Diarrhea OXYCODONE 03/13/2019 5 - Intolerance OXYCONTIN (OXYCODONE HCL) 05/11/2011 14 - Other: See Comments Comments: headaches PERCOCET (OXYCODONE-ACETAMINOPHEN) 12/09/2012 8 - GI Upset PIOGLITAZONE 03/13/2019 8 - GI Upset PLAVIX (CLOPIDOGREL BISULFATE) 02/21/2016 6 - Diarrhea 11 - Vomiting PROZAC (FLUOXETINE HCL) 05/11/2011 14 - Other: See Comments Comments: low blood pressure SEASONAL ALLERGIES 03/20/2013 14 - Other: See Comments Comments: Itchy eyes, runny nose, sneezing STEROIDS (CORTICOSTEROIDS (GLUCOC*04/12/2013 8 - GI Upset Comments: deathly ill, joint pain SULFA (SULFONAMIDE ANTIBIOTICS) 05/11/2011 4 - Hives 10 - Anaphylaxis Comments: yeast infections TIZANIDINE 03/13/2019 4 - Hives TRAMADOL 03/13/2019 11 - Vomiting Date Reviewed: 01/12/2024 Reviewed by: Brenda Woods APRN.MUSIC MINISTER - Fully Assessed Reason for Visit: Cardiac Clearance [4105] Prescriptions as of 01/14/2024 - ranolazine SR (RANEXA) 1,000 mg tab ER 12 hr Take 1 tablet by mouth once daily. - metoprolol succinate ER (TOPROL XL) 50 mg 24 hr tablet Take 1 tablet by mouth every afternoon. - ezetimibe (ZETIA) 10 mg tablet Take 1 tablet by mouth every afternoon. - atorvastatin (LIPITOR) 80 mg tablet Take 1 tablet by mouth every afternoon. - escitalopram oxalate (LEXAPRO) 20 mg tablet Take 20 mg by mouth every morning. - famotidine (PEPCID) 20 mg tablet Take by mouth once daily. - nitroglycerin sublingual (NITROQUICK) 0.4 mg SL tablet Dissolve 1 tablet under the tongue as needed. FOR CHEST PAIN. IF NO RELIEF CALL 911 - isosorbide mononitrate ER (IMDUR) 30 mg 24 hr tablet Take 1 tablet by mouth once daily. - Blood Pressure Monitor kit Check home blood pressure and heart rate daily. - glimepiride (AMARYL) 4 mg tablet Take 4 mg by mouth daily with breakfast. - linagliptin (TRADJENTA) 5 mg tab Take 5 mg by mouth once daily. - aspirin, enteric coated (ECOTRIN LOW STRENGTH) 81 mg EC tablet Take 1 tablet by mouth once daily. Facility-Administered Medications as of 01/14/2024 - perflutren lipid microspheres 1.3 mL in NaCl (PF) 0.9% 10 mL injection (DEFINITY) - sodium chloride 0.9 % (flush) 10 mL (BD POSIFLUSH) Meds Comments as of 04/27/2019: Problem List As Of Date 01/13/2024 Noted Resolved CHEST PAIN NOS [R07.9] 03/11/2007 ASCVD [I25.10] 03/11/2007 Mixed hyperlipidemia [E78.2] 03/11/2007 Nausea with Vomiting [R11.2] 01/31/2010 Unspecified Esophagitis [K20.90] 01/31/2010 Diaphragmatic Hernia without Mention of Obstruc*01/31/2010 Acute Gastritis without Mention of Hemorrhage [*01/31/2010 Diarrhea [R19.7] 06/11/2011 Benign neoplasm of colon [D12.6] 06/11/2011 Arthropathy, 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] 12/09/2012 Chronic pain disorder [G89.4] 12/09/2012 Diffuse myofascial pain syndrome [M79.18] 12/09/2012 Adhesive capsulitis of left shoulder [M75.02] 12/21/2012 Left rotator cuff tear [M75.102] 03/20/2013 Acute pain of left shoulder [M25.512] 05/30/2013 Adhesive capsulitis of shoulder [M75.00] 05/30/2013 Arthritis of foot, right [M19.071] 08/15/2013 Right knee pain [M25.561] 01/18/2014 Arthritis of right knee [M17.11] 09/11/2014 Presence of stent in left circumflex coronary a* (more content not included)... [facility] CNPN Telephone (AKPRAD) ----- CANADAKAROLINA ([id number]) 1955 F Date Time Provider Department 01/13/24 KEI ATKINSON During your visit today, we recorded the following information about you: Kei Atkinson APRN.SONAL 01/13/2024 2:[address] Reilly, This case was reviewed with Dr. Valle, anesthesiologist. The patient was complaining of chest pain at her PST visit. Dr. Valle is requesting cardiac clearance. I left a message for Steffi at your office- see my progress note for more detail. ThanksKei MASTER OCEAN-MUSIC MINISTER Pre-Anesthesia Testing [phone] Allergies As of Date: 01/13/2024 Noted Allergy Reaction PENICILLINS 01/18/2006 4 - Hives ACTOS (PIOGLITAZONE HCL) 05/11/2011 14 - Other: See Comments Comments: muscle spasms ADHESIVE TAPE (ROSINS) 04/12/2013 2 - Rash Comments: Skin comes off with tape Use paper tape ATORVASTATIN 03/24/2018 11 - Vomiting CLOPIDOGREL 01/23/2021 11 - Vomiting CODEINE 04/12/2013 8 - GI Upset 16 - Unknown Comments: Can take small amounts CORTISONE 01/18/2006 Comments: loses nerve sensation DARVOCET A500 (PROPOXYPHENE N-ANTWON*01/18/2006 4 - Hives EFFEXOR (VENLAFAXINE ANALOGUES) 05/11/2011 12 - Shortness of Breath GABAPENTIN 03/13/2019 5 - Intolerance HYDROCHLOROTHIAZIDE 03/13/2019 11 - Vomiting HYDROCODONE BITARTRATE 03/13/2019 8 - GI Upset JANUVIA (SITAGLIPTIN) 05/11/2011 14 - Other: See Comments Comments: muscle spasms LIPITOR (ATORVASTATIN CALCIUM) 05/11/2011 14 - Other: See Comments Comments: abdominal cramping LISINOPRIL 03/13/2019 14 - Other: See Comments LOSARTAN 03/13/2019 14 - Other: See Comments METOPROLOL 08/25/2019 6 - Diarrhea OXYCODONE 03/13/2019 5 - Intolerance OXYCONTIN (OXYCODONE HCL) 05/11/2011 14 - Other: See Comments Comments: headaches PERCOCET (OXYCODONE-ACETAMINOPHEN) 12/09/2012 8 - GI Upset PIOGLITAZONE 03/13/2019 8 - GI Upset PLAVIX (CLOPIDOGREL BISULFATE) 02/21/2016 6 - Diarrhea 11 - Vomiting PROZAC (FLUOXETINE HCL) 05/11/2011 14 - Other: See Comments Comments: low blood pressure SEASONAL ALLERGIES 03/20/2013 14 - Other: See Comments Comments: Itchy eyes, runny nose, sneezing STEROIDS (CORTICOSTEROIDS (GLUCOC*04/12/2013 8 - GI Upset Comments: deathly ill, joint pain SULFA (SULFONAMIDE ANTIBIOTICS) 05/11/2011 4 - Hives 10 - Anaphylaxis Comments: yeast infections TIZANIDINE 03/13/2019 4 - Hives TRAMADOL 03/13/2019 11 - Vomiting Date Reviewed: 01/12/2024 Reviewed by: Brenda Woods APRN.MUSIC MINISTER - Fully Assessed Reason for Visit: Cardiac clearance needed [Other] Prescriptions as of 01/13/2024 - ranolazine SR (RANEXA) 1,000 mg tab ER 12 hr Take 1 tablet by mouth once daily. - metoprolol succinate ER (TOPROL XL) 50 mg 24 hr tablet Take 1 tablet by mouth every afternoon. - ezetimibe (ZETIA) 10 mg tablet Take 1 tablet by mouth every afternoon. - atorvastatin (LIPITOR) 80 mg tablet Take 1 tablet by mouth every afternoon. - escitalopram oxalate (LEXAPRO) 20 mg tablet Take 20 mg by mouth every morning. - famotidine (PEPCID) 20 mg tablet Take by mouth once daily. - nitroglycerin sublingual (NITROQUICK) 0.4 mg SL tablet Dissolve 1 tablet under the tongue as needed. FOR CHEST PAIN. IF NO RELIEF CALL 911 - isosorbide mononitrate ER (IMDUR) 30 mg 24 hr tablet Take 1 tablet by mouth once daily. - Blood Pressure Monitor kit Check home blood pressure and heart rate daily. - glimepiride (AMARYL) 4 mg tablet Take 4 mg by mouth daily with breakfast. - linagliptin (TRADJENTA) 5 mg tab Take 5 mg by mouth once daily. - aspirin, enteric coated (ECOTRIN LOW STRENGTH) 81 mg EC tablet Take 1 tablet by mouth once daily. Facility-Administered Medications as of 01/13/2024 - perflutren lipid microspheres 1.3 mL in NaCl (PF) 0.9% 10 mL injection (DEFINITY) - sodium chloride 0.9 % (flush) 10 mL (BD POSIFLUSH) Meds Comments as of 04/27/2019: Problem List As Of Date 01/13/2024 Noted Resolved CHEST PAIN NOS [R07.9] 03/11/2007 ASCVD [I25.10] 03/11/2007 Mixed hyperlipidemia [E78.2] 03/11/2007 Nausea with Vomiting [R11.2] 01/31/2010 Unspecified Esophagitis [K20.90] 01/31/2010 Diaphragmatic Hernia without Mention of Obstruc*01/31/2010 Acute Gastritis without Mention of Hemorrhage [*01/31/2010 Diarrhea [R19.7] 06/11/2011 Benign neoplasm of colon [D12.6] 06/11/2011 Arthropathy, 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] 12/09/2012 Chronic pain disorder [G89.4] 12/09/2012 Diffuse myofascial pain syndrome [M79.18] 12/09/2012 Adhesive capsulitis of left shoulder [M75.02] 12/21/2012 Left rotator cuff tear [M75.102] 03/20/2013 Acute pain of left shoulder [M25.512] 05/30/2013 Adhesive capsulitis of shoulder [M75.00] 05/30/2013 Arthritis of foot, right [M19.071] 08/15/2013 Right knee pain [M25.561] 01/18/2014 Arthritis of right knee [M17.11] 09/11/2014 Presence of stent in left circumflex coronary a*07/08/2017 Presence of s (more content not included)... Normal [facility] NURSING PROGon 01-13-2024 NURSING PROG HNO ID: [id number] Author: KEI ATKINSON APRN.MUSIC MINISTER Service: Anesthesiology Author Type: Nurse Practitioner Type: Nursing Progress Note Filed: 01/13/2024 14:30 Note Text: Case reviewed with Dr. Valle, anesthesiologist- reviewed red dot concerns, PST HANDP, last cardiology ov, last stress test 10/11/23 and last ECHO 10/14/23. No clearances were requested per the surgeon. Per Dr. Valle the stress test from 10/11/23 was inconclusive because patient's HR was not adequate during procedure- maximum heart rate was 71 bpm, which is 46% of the predicted heart rate for age. The lockmaker ov from 12/03/23 was reviewed and the patient stated at that visit that she had a cardiac cath completed [address] Valle requested the patient's cardiac cath results and also cardiac clearance. I found out from the patient that her cardiac cath was completed at [facility]. I called [facility] at [phone] and per medical records the patient's last cardiac cath was in 07/2022. They will fax those records. Left message for Steffi at Dr. Reilly's office and let her know that anesthesia is requesting cardiac clearance. Normal [facility] Basic metabolic 2000 panelon 01-12-2024 Anion gap [Moles/Vol] 6 mmol/L Low 9-18 [facility] Comment on above: Order Comment: Speci men Type: BLOOD SPECIMEN Ordering Facility: [facility] Address: [address] [place] [address] Performed By: #### 2 4321-2 #### [facility] CLIA [id number] [address] [place] [address] [place] Calcium [Mass/Vol] 8.8 mg/dL Normal 8.5-10.2 [facility] Comment on above: Order Comment: Speci men Type: BLOOD SPECIMEN Ordering Facility: [facility] Address: [address] [place] [address] Performed By: #### 2 4321-2 #### [facility] CLIA [id number] 1 [place] [address] [place] Chloride [Moles/Vol] 100 mmol/L Normal 97-105 [facility] Comment on above: Order Comment: Speci men Type: BLOOD SPECIMEN Ordering Facility: [facility] Address: [address] [place] [address] Performed By: #### 2 4321-2 #### [facility] CLIA [id number] [address] STATES OF [facility] CO2 [Moles/Vol] 28 mmol/L Normal 22-30 [facility] Comment on above: Order Comment: Speci men Type: BLOOD SPECIMEN Ordering Facility: [facility] Address: [address] [place] [address] Performed By: #### 2 4321-2 #### [facility] CLIA [id number] [address] Creatinine [Mass/Vol] 0.82 mg/dL Normal 0.58-0.96 [facility] Comment on above: Order Comment: Speci men Type: BLOOD SPECIMEN Ordering Facility: [facility] Address: [address] [place] [address] Performed By: #### 2 4321-2 #### [facility] CLIA [id number] [address] Creatinine and Glomerular filtration rate.predicted panel (S/P/Bld) 79 mL/min/1.73m??? Normal >=60 [facility] Comment on above: Order Comment: Speci men Type: BLOOD SPECIMEN Ordering Facility: [facility] Address: [address] [place] [address] Result Comment: Yasmine mated Glomerular Filtration Rate (eGFR) is calculated using the 2020 CKD-EPI creatinine equation. This equation utilizes serum creatinine, sex, and age as parameters. The creatinine assay has traceable calibration to isotope dilution-mass spectrometry. Refer to KDIGO guidelines for clinical interpretation. In patients with unstable renal function, e.g. those with acute kidney injury, the eGFR may not accurately reflect actual GFR. Performed By: #### 2 4321-2 #### [facility] CLIA [id number] [address] OF [facility] Glucose [Mass/Vol] 248 mg/dL High 74-99 [facility] Comment on above: Order Comment: Speci men Type: BLOOD SPECIMEN Ordering Facility: [facility] Address: [address] [place] [address] Result Comment: The [place] Diabetes Association (ADA) provides guidance for cutoff values for fasting glucose and random glucose. The ADA defines fasting as no caloric intake for at least 8 hours. Fasting plasma glucose results between 100 to 125 mg/dL indicate increased risk for diabetes (prediabetes). Fasting plasma glucose results greater than or equal to 126 mg/dL meet the criteria for diagnosis of diabetes. In the absence of unequivocal hyperglycemia, results should be confirmed by repeat testing. In a patient with classic symptoms of hyperglycemia or hyperglycemic crisis, random plasma glucose results greater than or equal to 200 mg/dL meet the criteria for diagnosis of diabetes. Reference: Standards of Medical Care in Diabetes 2016, [place] Diabetes Association. Diabetes Care. 2016.39(Suppl 1). Performed By: #### 2 4321-2 #### [facility] CLIA [id number] [address] [place] [address] [place] Potassium [Moles/Vol] 4.8 mmol/L Normal 3.7-5.1 [facility] Comment on above: Order Comment: Ravinder [facility] Type: BLOOD SPECIMEN Ordering Facility: [facility] Address: [address] [place] [address] Performed By: #### 2 1-2 #### [facility] CLIA [id number] [address] [place] Sodium [Moles/Vol] 134 mmol/L Low 136-144 [facility] Comment on above: Order Comment: Bethaniei men Type: BLOOD SPECIMEN Ordering Facility: [facility] Address: [address] [place] [address] Performed By: #### 2 1-2 #### [facility] CLIA [id number] [address] [place] [address] [place] Urea nitrogen [Mass/Vol] 14 mg/dL Normal 7-21 [facility] Comment on above: Order Comment: Ravinder men Type: BLOOD SPECIMEN Ordering Facility: [facility] Address: [address] [place] [address] Performed By: #### 2 1-2 #### [facility] CLIA [id number] [address] CBC panel Auto (Bld)on 01-12 Erythrocyte distribution width (RBC) [Ratio] 21.7 % High 11.5-15.0 [facility] Comment on above: Order Comment: Speci men Type: BLOOD SPECIMEN Ordering Facility: [facility] Address: [address] [place] [address] Performed By: #### 2 4321-2 #### [facility] CLIA [id number] [address] Hematocrit (Bld) [Volume fraction] 30.9 % Low 36.0-46.0 [facility] Comment on above: Order Comment: Speci men Type: BLOOD SPECIMEN Ordering Facility: [facility] Address: [address] [place] [address] Performed By: #### 2 4321-2 #### [facility] CLIA [id number] [address] Hemoglobin (Bld) [Mass/Vol] 8.5 g/dL Low 11.5-15.5 [facility] Comment on above: Order Comment: Speci men Type: BLOOD SPECIMEN Ordering Facility: [facility] Address: [address] [place] [address] Performed By: #### 2 4321-2 #### [facility] CLIA [id number] [address] MCH (RBC) [Entitic mass] 18.8 pg Low 26.0-34.0 [facility] Comment on above: Order Comment: Speci men Type: BLOOD SPECIMEN Ordering Facility: [facility] Address: [address] [place] [address] Performed By: #### 2 4321-2 #### [facility] CLIA [id number] [address] [place] MCHC (RBC) [Mass/Vol] 27.5 g/dL Low 30.5-36.0 [facility] Comment on above: Order Comment: Speci men Type: BLOOD SPECIMEN Ordering Facility: [facility] Address: [address] [place] [address] Performed By: #### 2 4321-2 #### [facility] CLIA [id number] [address] MCV (RBC) [Entitic vol] 68.5 fL Low 80.0-100.0 [facility] Comment on above: Order Comment: Speci men Type: BLOOD SPECIMEN Ordering Facility: [facility] Address: [address] [place] [address] Performed By: #### 2 4321-2 #### [facility] CLIA [id number] [address] Nucleated RBC (Bld) [#/Vol] 10*3/uL Normal <0.01 [facility] Comment on above: Order Comment: Speci men Type: BLOOD SPECIMEN Ordering Facility: [facility] Address: [address] [place] [address] Performed By: #### 2 4321-2 #### [facility] CLIA [id number] [address] Platelet mean volume (Bld) [Entitic vol] 9.0 fL Normal 9.0-12.7 [facility] Comment on above: Order Comment: Speci men Type: BLOOD SPECIMEN Ordering Facility: [facility] Address: [address] [place] [address] Performed By: #### 2 4321-2 #### [facility] CLIA [id number] [address] [place] Platelets (Bld) [#/Vol] 307 10*3/uL Normal 150-400 [facility] Comment on above: Order Comment: Speci men Type: BLOOD SPECIMEN Ordering Facility: [facility] Address: [address] [place] [address] Performed By: #### 2 4321-2 #### [facility] CLIA [id number] [address] [place] [address] [place] RBC (Bld) [#/Vol] 4.51 10*6/uL Normal 3.90-5.20 [facility] Comment on above: Order Comment: Speci men Type: BLOOD SPECIMEN Ordering Facility: [facility] Address: [address] [place], [place] [id number] Performed By: #### 2 4321-2 #### [facility] CLIA [id number] [address] OF [facility] WBC (Bld) [#/Vol] 7.35 10*3/uL Normal 3.70-11.00 [facility] Comment on above: Order Comment: Speci men Type: BLOOD SPECIMEN Ordering Facility: [facility] Address: [address] [place] [address] Performed By: #### 2 4321-2 #### [facility] CLIA [id number] [address] HISTORY PHYSICALon HISTORY PHYSICAL HNO ID: [id number] Author: BRENDA WOODS APRN.MUSIC MINISTER Service: ? Author Type: Nurse Practitioner Type: H&P Filed: 01/12/2024 12:27 Note Text: HISTORY AND PHYSICAL EXAMINATION SERVICE DATE: 01/12/2024 SERVICE TIME: 9:20 AM PRIMARY CARE PHYSICIAN: Tyrel Sy MD Assessment Patient has the following medical conditions which may affect stephen-operative course: Pre-op examination see note for medical conditions which may affect stephen-operative course that were addressed at today's visit. 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 S/P coronary artery stent placement cardiac stents. [...] that they just say see you next time. Recently saw cardiology in November but unaware [...] - ANESTHESIA PLAN Anesthetic Plan: general Beta Gale Monitoring Plan Post Procedure Analgesic Plan Prepared for Surgery: CONSULTS: Patient does not require consults for optimization at this time Planned Anesthetic: general The Following Tests/Procedures Have Been Initiated: BMP, CBC, and TANDS ordered in PAT per ANI. REASON FOR VISIT: Karolina Canada is a 68 year old female who is scheduled for Procedure(s): ENDARTERECTOMY CAROTID ADULT-right carotid endarterectomy (Right) at the request of Dr. Deyanira Reilly for routine HANDP. My final recommendation will be communicated back [...] Syndrome Adhesive Capsulitis of Left Shoulder Left (more content not included)... Normal [facility] TYPE AND SCREEN,30 DAYon ABO O Normal [facility] Comment on above: Order Comment: Speci men Type: BLOOD SPECIMEN Ordering Facility: [facility] Address: [address] [place] [address] Performed By: #### T SCR30 #### [facility] CLIA [id number] [address] STATES OF [facility] HISTORICAL AB SCR STATUS Negative Normal [facility] Comment on above: Order Comment: Speci men Type: BLOOD SPECIMEN Ordering Facility: [facility] Address: [address] [place] [address] Performed By: #### T SCR30 #### [facility] CLIA [id number] [address] Rh Nom (Bld) Positive Normal [facility] Comment on above: Order Comment: Speci men Type: BLOOD SPECIMEN Ordering Facility: [facility] Address: [address] [place] [address] Performed By: #### T SCR30 #### [facility] CLIA [id number] [address] STATES OF [facility] CNOVtelly 12-14-2023 CNOV Office Visit (MARYJose DRISCOLL) ----- KAROLINA [place] ([id number]) 1955 F Date Time Provider Department 12/14/23 1:30 PM DEYANIRA REILLY AGNAVINACC During your visit today, we recorded the following information about you: Pulse Blood pressure Weight Height 64/minute 114/60 58.1 kg 1.626 m Deyanira Reilly MD 12/14/2023 1:53 PM Signed [facility] [place] DEPARTMENT OF VASCULAR SURGERY OUTPATIENT VISIT DATE [...] to requesting physician via US mail. Ms. Cnaada is a 68 year old female who is seen today for follow up for carotid stenosis. Since her last visit she underwent a CTA and is here to discuss the results. She is currently on ASA, statin medication. Recently had an echo and stress test as well as a visit with her new lockmaker. CTA demonstrated a R ICA stenosis of 80%. PAST MEDICAL HISTORY Diagnosis Date Benign neoplasm of duodenum, jejunum, and ileum CAD (coronary artery disease) bilateral Carotid artery stenosis Cyst on right wrist Diabetes (HCC) Diarrhea HLD (hyperlipidemia) HTN (hypertension) Hx of cardiac cath Knee pain LA (myocardial infarction) (HCC) Nausea Nausea with vomiting [...] ARTERIAL, FOUR+ 03/2006 COLONOSCOPY W/BIOPSY SINGLE/MULTIPLE 06/11/2011 ESOPHAGOGASTRODUODENOSCOP Y TRANSORAL DIAGNOSTIC 01/31/2010 EGD LAPS ABD PRTMANDOMENTUM DX W/WO SPEC BR/WA SPX Laparoscopy x 3 PAST SURGICAL HISTORY OF gallbladder PAST SURGICAL HISTORY OF appendectomy PAST SURGICAL HISTORY OF carpal tunnel bilateral PAST SURGICAL HISTORY OF double hernia surgery PAST SURGICAL HISTORY OF hysterectomy PAST SURGICAL HISTORY OF 2016 Cardiac Stent, x 4 PAST SURGICAL HISTORY OF Open heart due to LA ROTATOR CUFF REPAIR 04/26/2013 left shoulder w/ [...] daily.Disp: 30 tabletRfl: 11 Blood Pressure Monitor [facility] blood pressure and heart rate daily.Disp: [...] Rfl: ALLERGIES: ALLERGIES Allergen Reactions Penicillins Hives (more content not included)... [facility] REYNALDO Telephone (CHRISTOPHKidzloop) ----- KAROLINA [place] ([id number]) 1955 F Date Time Provider Department 12/14/23 DEYANIRA REILLY KEMI During your visit today, we recorded the following information about you: Isis Best APRN.SONAL 12/14/2023 2:01 PM Signed Orders signed. Thank you, Isis Best APRN.SONAL Forrester12/14/2023 3:07 PM Signed I have scheduled the patient for a RCEA on 01/19/24 @ 830 am with a 630 am arrival time. Pretesting 01/12 @ 920am at the [facility] building Post op is 02/14 @ 10 am with Isis Mailed out info 01/19 Forrester12/15/2023 8:17 AM Signed [facility] confirmation [id number] Allergies As of Date: 12/14/2023 Noted Allergy Reaction PENICILLINS 01/18/2006 4 - Hives ACTOS (PIOGLITAZONE HCL) 05/11/2011 14 - Other: See Comments Comments: muscle spasms ADHESIVE TAPE (ROSINS) 04/12/2013 2 - Rash Comments: Skin comes off with tape Use paper tape ATORVASTATIN 03/24/2018 11 - Vomiting CLOPIDOGREL 01/23/2021 11 - Vomiting CODEINE 04/12/2013 8 - GI Upset 16 - Unknown Comments: Can take small amounts CORTISONE 01/18/2006 Comments: loses nerve sensation DARVOCET A500 (PROPOXYPHENE N-ANTWON*01/18/2006 4 - Hives EFFEXOR (VENLAFAXINE ANALOGUES) 05/11/2011 12 - Shortness of Breath GABAPENTIN 03/13/2019 5 - Intolerance HYDROCHLOROTHIAZIDE 03/13/2019 11 - Vomiting HYDROCODONE BITARTRATE 03/13/2019 8 - GI Upset JANUVIA (SITAGLIPTIN) 05/11/2011 14 - Other: See Comments Comments: muscle spasms LIPITOR (ATORVASTATIN CALCIUM) 05/11/2011 14 - Other: See Comments Comments: abdominal cramping LISINOPRIL 03/13/2019 14 - Other: See Comments LOSARTAN 03/13/2019 14 - Other: See Comments METOPROLOL 08/25/2019 6 - Diarrhea OXYCODONE 03/13/2019 5 - Intolerance OXYCONTIN (OXYCODONE HCL) 05/11/2011 14 - Other: See Comments Comments: headaches PERCOCET (OXYCODONE-ACETAMINOPHEN) 12/09/2012 8 - GI Upset PIOGLITAZONE 03/13/2019 8 - GI Upset PLAVIX (CLOPIDOGREL BISULFATE) 02/21/2016 6 - Diarrhea 11 - Vomiting PROZAC (FLUOXETINE HCL) 05/11/2011 14 - Other: See Comments Comments: low blood pressure SEASONAL ALLERGIES 03/20/2013 14 - Other: See Comments Comments: Itchy eyes, runny nose, sneezing STEROIDS (CORTICOSTEROIDS (GLUCOC*04/12/2013 8 - GI Upset Comments: deathly ill, joint pain SULFA (SULFONAMIDE ANTIBIOTICS) 05/11/2011 4 - Hives 10 - Anaphylaxis Comments: yeast infections TIZANIDINE 03/13/2019 4 - Hives TRAMADOL 03/13/2019 11 - Vomiting Date Reviewed: 12/14/2023 Reviewed by: Margie Eduardo LPN - Fully Assessed Reason for Visit: Schedule Surgery [1330] Primary Visit Diagnosis: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 FOR CHEST PAIN. IF NO RELIEF CALL 911 - acetaminophen (TYLENOL) 500 mg tablet Take 2 tablets by mouth every 6 hours. - isosorbide mononitrate ER (IMDUR) 30 mg 24 hr tablet Take 1 tablet by mouth once daily. - Blood Pressure Monitor kit Check home blood pressure and heart rate daily. - glimepiride (AMARYL) 4 mg tablet Take 4 mg by mouth daily with breakfast. - atorvastatin (LIPITOR) 40 mg tablet TAKE 1 TABLET BY MOUTH ONCE DAILY - linagliptin (TRADJENTA) 5 mg tab Take 5 mg by mouth once daily. - escitalopram oxalate (LEXAPRO) 10 mg tablet Take 10 mg by mouth once daily. - aspirin, enteric coated (ECOTRIN LOW STRENGTH) 81 mg EC tablet Take 1 tablet by mouth once daily. Facility-Administered Medications as of 12/15/2023 - perflutren lipid microspheres 1.3 mL in NaCl (PF) 0.9% 10 mL injection (DEFINITY) - sodium chloride 0.9 % (flush) 10 mL (BD POSIFLUSH) Meds Comments as of 04/27/2019: Problem List As Of Date 12/14/2023 Noted Resolved CHEST PAIN NOS [R07.9] 03/11/2007 ASCVD [I25.10] 03/11/2007 Mixed hyperlipidemia [E78.2] 03/11/2007 Nausea with Vomiting [R11.2] 01/31/2010 Unspecified Esophagitis [K20.90] 01/31/2010 Diaphragmatic Hernia without Mention of Obstruc*01/31/2010 Acute Gastritis without Mention of Hemorrhage [*01/31/2010 Diarrhea [R19.7] 06/11/2011 Benign neoplasm of colon [D12.6] 06/11/2011 Arthropathy, 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 Normal [facility] CBC W Auto Differential pane l (Bld)on 12-03-2023 Basophils (Bld) [#/Vol] 0.09 10*3/uL Normal <0.11 [facility] Comment on above: Order Comment: Speci men Type: BLOOD SPECIMEN Ordering Facility: [facility] Address: [address] [place] [address] Performed By: #### 5 7021-8 #### [facility] CLIA [id number] [address] [place] [address] [place] Basophils/100 WBC (Bld) 1.0 % Normal [facility] Comment on above: Order Comment: Speci men Type: BLOOD SPECIMEN Ordering Facility: [facility] Address: [address] [place] [address] Performed By: #### 5 7021-8 #### [facility] LABORATORY CLIA [id number] 1 [place] [address] [place] Differential cell count method Nom (Bld) Auto Normal [facility] Comment on above: Order Comment: Speci men Type: BLOOD SPECIMEN Ordering Facility: [facility] Address: [address] [place] [address] Performed By: #### 5 7021-8 #### [facility] CLIA [id number] 1 [place] [address] [place] Eosinophils (Bld) [#/Vol] 0.16 10*3/uL Normal <0.46 [facility] Comment on above: Order Comment: Speci men Type: BLOOD SPECIMEN Ordering Facility: [facility] Address: [place] [place] [address] Performed By: #### 5 7021-8 #### [facility] CLIA [id number] [address] [place] Eosinophils/100 WBC (Bld) 1.8 % Normal [facility] Comment on above: Order Comment: Speci men Type: BLOOD SPECIMEN Ordering Facility: [facility] Address: [address] [place] [address] Performed By: #### 5 7021-8 #### [facility] CLIA [id number] [address] [place] Erythrocyte distribution width (RBC) [Ratio] 21.6 % High 11.5-15.0 [facility] Comment on above: Order Comment: Speci men Type: BLOOD SPECIMEN Ordering Facility: [facility] Address: [address] [place] [address] Performed By: #### 5 7021-8 #### [facility] CLIA [id number] [address] [place] Hematocrit (Bld) [Volume fraction] 31.7 % Low 36.0-46.0 [facility] Comment on above: Order Comment: Speci men Type: BLOOD SPECIMEN Ordering Facility: [facility] Address: [address] [place] [address] Performed By: #### 5 7021-8 #### [facility] CLIA [id number] [address] [place] Hemoglobin (Bld) [Mass/Vol] 8.7 g/dL Low 11.5-15.5 [facility] Comment on above: Order Comment: Speci men Type: BLOOD SPECIMEN Ordering Facility: [facility] Address: [address] [place] [address] Performed By: #### 5 7021-8 #### [facility] CLIA [id number] [address] [place] Immature granulocytes (Bld) [#/Vol] 0.04 10*3/uL Normal <0.10 [facility] Comment on above: Order Comment: Speci men Type: BLOOD SPECIMEN Ordering Facility: [facility] Address: [address] [place] [address] Performed By: #### 5 7021-8 #### [facility] CLIA [id number] [address] Immature granulocytes/100 WBC (Bld) 0.4 % Normal [facility] Comment on above: Order Comment: Speci men Type: BLOOD SPECIMEN Ordering Facility: [facility] Address: [address] [place] [address] Performed By: #### 5 7021-8 #### [facility] CLIA [id number] [address] Lymphocytes (Bld) [#/Vol] 2.61 10*3/uL Normal 1.00-4.0 0 [facility] Comment on above: Order Comment: Speci men Type: BLOOD SPECIMEN Ordering Facility: [facility] Address: [address] [place] [address] Performed By: #### 5 7021-8 #### [facility] CLIA [id number] [address] Lymphocytes/100 WBC (Bld) 29.2 % Normal [facility] Comment on above: Order Comment: Speci men Type: BLOOD SPECIMEN Ordering Facility: [facility] Address: [address] [place] [address] Performed By: #### 5 7021-8 #### [facility] CLIA [id number] [address] MCH (RBC) [Entitic mass] 18.5 pg Low 26.0-34.0 [facility] Comment on above: Order Comment: Speci men Type: BLOOD SPECIMEN Ordering Facility: [facility] Address: [address] [place] [address] Performed By: #### 5 7021-8 #### [facility] CLIA [id number] [address] MCHC (RBC) [Mass/Vol] 27.4 g/dL Low 30.5-36.0 [facility] Comment on above: Order Comment: Speci men Type: BLOOD SPECIMEN Ordering Facility: [facility] Address: [address] [place] [address] Performed By: #### 5 7021-8 #### [facility] CLIA [id number] [address] [place] MCV (RBC) [Entitic vol] 67.4 fL Low 80.0-100.0 [facility] Comment on above: Order Comment: Speci men Type: BLOOD SPECIMEN Ordering Facility: [facility] Address: [address] [place] [address] Performed By: #### 5 7021-8 #### [facility] CLIA [id number] [address] [place] Monocytes (Bld) [#/Vol] 0.59 10*3/uL Normal <0.87 [facility] Comment on above: Order Comment: Speci men Type: BLOOD SPECIMEN Ordering Facility: [facility] Address: [address] [place] [address] Performed By: #### 5 7021-8 #### [facility] CLIA [id number] [address] OF [facility] Monocytes/100 WBC (Bld) 6.6 % Normal [facility] Comment on above: Order Comment: Speci men Type: BLOOD SPECIMEN Ordering Facility: [facility] Address: [address] [place] [address] Performed By: #### 5 7021-8 #### [facility] CLIA [id number] [address] [place] Neutrophils (Bld) [#/Vol] 5.45 10*3/uL Normal 1.45-7.5 0 [facility] Comment on above: Order Comment: Speci men Type: BLOOD SPECIMEN Ordering Facility: [facility] Address: [address] [place] [address] Performed By: #### 5 7021-8 #### [facility] CLIA [id number] [address] Neutrophils/100 WBC (Bld) 61.0 % Normal [facility] Comment on above: Order Comment: Speci men Type: BLOOD SPECIMEN Ordering Facility: [facility] Address: [address] [place] [address] Performed By: #### 5 7021-8 #### [facility] CLIA [id number] [address] [place] Nucleated RBC (Bld) [#/Vol] 10*3/uL Normal <0.01 [facility] Comment on above: Order Comment: Speci men Type: BLOOD SPECIMEN Ordering Facility: [facility] Address: [address] [place] [address] Performed By: #### 5 7021-8 #### [facility] CLIA [id number] [address] Nucleated RBC/100 WBC (Bld) [Ratio] 0.0 /100 WBC Normal [facility] Comment on above: Order Comment: Speci men Type: BLOOD SPECIMEN Ordering Facility: [facility] Address: [address] [place] [address] Performed By: #### 5 7021-8 #### [facility] CLIA [id number] [address] Platelet mean volume (Bld) [Entitic vol] 9.5 fL Normal 9.0-12.7 [facility] Comment on above: Order Comment: Speci men Type: BLOOD SPECIMEN Ordering Facility: [facility] Address: [address] [place] [address] Performed By: #### 5 7021-8 #### [facility] CLIA [id number] [address] [place] Platelets (Bld) [#/Vol] 330 10*3/uL Normal 150-400 [facility] Comment on above: Order Comment: Speci men Type: BLOOD SPECIMEN Ordering Facility: [facility] Address: [address] [place] [address] Performed By: #### 5 7021-8 #### [facility] CLIA [id number] 1 [place] [address] [place] RBC (Bld) [#/Vol] 4.70 10*6/uL Normal 3.90-5.20 [facility] Comment on above: Order Comment: Speci men Type: BLOOD SPECIMEN Ordering Facility: [facility] Address: [address] [place] [address] Performed By: #### 5 7021-8 #### [facility] CLIA [id number] [address] STATES OF [facility] WBC (Bld) [#/Vol] 8.94 10*3/uL Normal 3.70-11.00 [facility] Comment on above: Order Comment: Speci men Type: BLOOD SPECIMEN Ordering Facility: [facility] Address: [address] [place] [address] Performed By: #### 5 7021-8 #### [facility] CLIA [id number] [address] OF [facility] CNOVon 12-03-2023 CNOV Office Visit (AGCARD POB) ----- KAROLINA CANADA ([id number]) 1955 F Date Time Provider Department 12/03/23 1:00 PM D[facility]E [facility] During your visit today, we recorded the following information about you: Pulse Blood pressure Weight Height 59/minute 127/63 60.1 kg 1.626 m Megan Thurston LPN 12/03/2023 11:57 AM Signed Patient states they are in pain from their left shoulder, neck, and arm. With a dull toothache like pain. ARNALDO Clark Negar, MD 12/03/2023 12:29 PM Signed [facility] [place] Jared Carrizales Department of Cardiovascular Medicine SECTION OF INTERVENTIONAL CARDIOLOGY OUTPATIENT VISIT DATE December 03, 2023 OUTPATIENT VISIT TYPE ESTABLISHED PRIMARY CARE PHYSICIAN: Tyrel Sy ([facility]) [address] [place] [address] REFERRING PHYSICIAN: SELF CHIEF COMPLAINT: Patient presents [...] mentioned that about 5 months ago has [facility] out side hospital and they did not [...] (hypertension) Hx of cardiac cath Knee pain [place] (myocardial infarction) (HCC) Nausea Nausea with vomiting [...] ARTERIAL, FOUR+ 03/2006 COLONOSCOPY W/BIOPSY SINGLE/MULTIPLE 06/11/2011 ESOPHAGOGASTRODUODENOSCOP Y TRANSORAL DIAGNOSTIC 01/31/2010 EGD LAPS ABD PRTMANDOMENTUM DX W/WO SPEC BR/WA SPX Laparoscopy x 3 PAST SURGICAL HISTORY OF gallbladder PAST SURGICAL HISTORY OF appendectomy PAST SURGICAL HISTORY OF carpal tunnel bilateral PAST SURGICAL HISTORY OF double hernia surgery PAST SURGICAL HISTORY OF hysterectomy PAST SURGICAL HISTORY OF 2016 Cardiac Stent, x 4 PAST SURGICAL HISTORY OF Open heart due to [place] ROTATOR CUFF REPAIR 04/26/2013 left shoulder w/ [...] See Comments low blood pressure Seasonal Allergies Oth (more content not included)... Normal [facility] Comprehensive metabolic 2000 panelon 12-03-2023 Albumin [Mass/Vol] 4.0 g/dL Normal 3.9-4.9 [facility] Comment on above: Order Comment: Speci men Type: BLOOD SPECIMEN Ordering Facility: [facility] Address: [address] [place], [place] [address] Performed By: #### 2 4323-8, 29736-3, 44880-9, 3016-3 #### [facility] CLIA [id number] [address] [place] ALP [Catalytic activity/Vol] 101 U/L Normal 34-123 [facility] Comment on above: Order Comment: Speci men Type: BLOOD SPECIMEN Ordering Facility: [facility] Address: [address] [place] [address] Performed By: #### 2 4323-8, 14721-8, 22872-5, 3016-3 #### [facility] CLIA [id number] [address] STATES OF [facility] ALT With P-5'-P [Catalytic activity/Vol] 11 U/L Normal 7-38 [facility] Comment on above: Order Comment: Speci men Type: BLOOD SPECIMEN Ordering Facility: [facility] Address: [address] [place] [address] Performed By: #### 2 4323-8, 51562-9, 21323-0, 3016-3 #### [facility] CLIA [id number] [address] Anion gap [Moles/Vol] 9 mmol/L Normal 9-18 [facility] Comment on above: Order Comment: Speci men Type: BLOOD SPECIMEN Ordering Facility: [facility] Address: [address] [place] [address] Performed By: #### 2 4323-8, 57457-6, 47209-5, 3016-3 #### [facility] CLIA [id number] [address] AST With P-5'-P [Catalytic activity/Vol] 25 U/L Normal 13-35 [facility] Comment on above: Order Comment: Speci men Type: BLOOD SPECIMEN Ordering Facility: [facility] Address: [address] [place] [address] Performed By: #### 2 4323-8, 52734-4, 77287-0, 3016-3 #### [facility] CLIA [id number] [address] [place] Bilirubin [Mass/Vol] 0.6 mg/dL Normal 0.2-1.3 [facility] Comment on above: Order Comment: Speci men Type: BLOOD SPECIMEN Ordering Facility: [facility] Address: [address] [place] [address] Performed By: #### 2 4323-8, 78605-3, 01044-1, 3016-3 #### [facility] CLIA [id number] [address] [place] Calcium [Mass/Vol] 9.3 mg/dL Normal 8.5-10.2 [facility] Comment on above: Order Comment: Speci men Type: BLOOD SPECIMEN Ordering Facility: [facility] Address: [address] [place] [address] Performed By: #### 2 4323-8, 69810-8, 04251-2, 6-3 #### [facility] CLIA [id number] [address] [place] [address] [place] Chloride [Moles/Vol] 99 mmol/L Normal 97-105 [facility] Comment on above: Order Comment: Speci men Type: BLOOD SPECIMEN Ordering Facility: [facility] Address: [address] [place] [address] Performed By: #### 2 4323-8, 92725-1, 56117-2, 6-3 #### [facility] CLIA [id number] [address] [place] CO2 [Moles/Vol] 25 mmol/L Normal 22-30 [facility] Comment on above: Order Comment: Speci men Type: BLOOD SPECIMEN Ordering Facility: [facility] Address: [address] [place] [address] Performed By: #### 2 4323-8, 27430-4, 66002-9, 3016-3 #### [facility] CLIA [id number] [address] [place] [address] [place] Creatinine [Mass/Vol] 0.87 mg/dL Normal 0.58-0.96 [facility] Comment on above: Order Comment: Speci men Type: BLOOD SPECIMEN Ordering Facility: [facility] Address: [address] [place] [address] Performed By: #### 2 4323-8, 03881-5, 54479-2, 3016-3 #### [facility] CLIA [id number] [address] [place] Creatinine and Glomerular filtration rate.predicted panel (S/P/Bld) 73 mL/min/1.73m??? Normal >=60 [facility] Comment on above: Order Comment: Ravinder nelson Type: BLOOD SPECIMEN Ordering Facility: [facility] Address: [address] [place] [address] Result Comment: Yasmine mated Glomerular Filtration Rate (eGFR) is calculated using the 2020 CKD-EPI creatinine equation. This equation utilizes serum creatinine, sex, and age as parameters. The creatinine assay has traceable calibration to isotope dilution-mass spectrometry. Refer to KDIGO guidelines for clinical interpretation. In patients with unstable renal function, e.g. those with acute kidney injury, the eGFR may not accurately reflect actual GFR. Performed By: #### 2 4323-8, 08628-5, 70994-4, 3016-3 #### [facility] CLIA [id number] [address] [place] [address] [place] Glucose [Mass/Vol] 136 mg/dL High 74-99 [facility] Comment on above: Order Comment: Ravinder nelson Type: BLOOD SPECIMEN Ordering Facility: [facility] Address: [address] [place] [address] Result Comment: The [place] Diabetes Association (ADA) provides guidance for cutoff values for fasting glucose and random glucose. The ADA defines fasting as no caloric intake for at least 8 hours. Fasting plasma glucose results between 100 to 125 mg/dL indicate increased risk for diabetes (prediabetes). Fasting plasma glucose results greater than or equal to 126 mg/dL meet the criteria for diagnosis of diabetes. In the absence of unequivocal hyperglycemia, results should be confirmed by repeat testing. In a patient with classic symptoms of hyperglycemia or hyperglycemic crisis, random plasma glucose results greater than or equal to 200 mg/dL meet the criteria for diagnosis of diabetes. Reference: Standards of Medical Care in Diabetes 2016, [place] Diabetes Association. Diabetes Care. 2016.39(Suppl 1). Performed By: #### 2 4323-8, 46799-1, 07359-3, 6-3 #### [facility] CLIA [id number] [address] [place] [address] [place] Potassium [Moles/Vol] 5.6 mmol/L High 3.7-5.1 [facility] Comment on above: Order Comment: Speci men Type: BLOOD SPECIMEN Ordering Facility: [facility] Address: [address] [place] [address] Performed By: #### 2 4323-8, 51968-7, 56125-4, 6-3 #### [facility] CLIA [id number] [address] [place] [address] [place] Protein [Mass/Vol] 7.2 g/dL Normal 6.3-8.0 [facility] Comment on above: Order Comment: Speci men Type: BLOOD SPECIMEN Ordering Facility: [facility] Address: [address] [place] [address] Performed By: #### 2 4323-8, 28127-6, 78344-0, 6-3 #### [facility] CLIA [id number] [address] [place] Sodium [Moles/Vol] 133 mmol/L Low 136-144 [facility] Comment on above: Order Comment: Speci men Type: BLOOD SPECIMEN Ordering Facility: [facility] Address: [address] [place] [address] Performed By: #### 2 4323-8, 28309-3, 42166-2, 6-3 #### [facility] CLIA [id number] [address] [place] [address] [place] Urea nitrogen [Mass/Vol] 9 mg/dL Normal 7-21 [facility] Comment on above: Order Comment: Speci men Type: BLOOD SPECIMEN Ordering Facility: [facility] Address: [address] [place] [address] Performed By: #### 2 4323-8, 92136-5, 74836-5, 3016-3 #### [facility] CLIA [id number] [address] [place] HbA1c (Bld)on 12-03-2023 Average glucose Estimated from glycated hemoglobin (Bld) [Mass/Vol] 160 mg/dL Normal [facility] Comment on above: Order Comment: Ravinder nelson Type: BLOOD SPECIMEN Ordering Facility: [facility] Address: [address] [place] [address] Result Comment: eAG: (Estimated average glucose) is a calculated value from HgbA1c and is guest services representative of the average blood glucose level in the last 2-3 month period. Performed By: #### 5 5454-3 #### [facility] CLIA [id number] [address] [place] [address] [place] HbA1c (Bld) [Mass fraction] 7.2 % High 4.3-5.6 [facility] Comment on above: Order Comment: Ravinder nelson Type: BLOOD SPECIMEN Ordering Facility: [facility] Address: [address] [place] [address] Result Comment: Amer [place] Diabetes Association guidelines indicate that patients with HgbA1c in the range 5.7-6.4% are at increased risk for development of diabetes, and intervention by lifestyle modification may be beneficial. HgbA1c greater or equal to 6.5% is considered diagnostic of diabetes. Performed By: #### 5 5454-3 #### [facility] CLIA [id number] [address] [place] [address] [place] Iron and Iron binding capaci ty panelon 12-03-2023 Iron [Mass/Vol] 19 ug/dL Low 41-186 [facility] Comment on above: Order Comment: Ravinder nelson Type: BLOOD SPECIMEN Ordering Facility: [facility] Address: [address] [place] [address] Performed By: #### 2 4323-8, 79133-1, 91470-9, 3016-3 #### [facility] CLIA [id number] [address] [place] Iron binding capacity [Mass/Vol] 369 ug/dL Normal 232-386 [facility] Comment on above: Order Comment: Speci men Type: BLOOD SPECIMEN Ordering Facility: [facility] Address: [address] [place] [address] Performed By: #### 2 4323-8, 05296-9, 92594-7, 3016-3 #### [facility] CLIA [id number] [address] Iron saturation [Mass fraction] 5.1 % Low 15.0-57.0 [facility] Comment on above: Order Comment: Speci men Type: BLOOD SPECIMEN Ordering Facility: [facility] Address: [address] [place] [address] Performed By: #### 2 4323-8, 05122-0, 84828-5, 3016-3 #### [facility] CLIA [id number] [address] OF [facility] Lipid 1996 panelon 4 Cholesterol [Mass/Vol] 86 mg/dL Normal <200 [facility] Comment on above: Order Comment: Speci men Type: BLOOD SPECIMEN Ordering Facility: [facility] Address: [address] [place] [address] Result Comment: <200 mg/dL, Desirable 200-239 mg/dL, Borderline high >239 mg/dL, High Performed By: #### T SCR30 #### [facility] CLIA [id number] [address] Cholesterol in HDL [Mass/Vol] 43 mg/dL Normal >39 [facility] Comment on above: Order Comment: Speci men Type: BLOOD SPECIMEN Ordering Facility: [facility] Address: [address] [place] [address] Result Comment: 40-5 9 mg/dL, Acceptable >59 mg/dL, High: Negative risk factor for coronary heart disease <40 mg/dL, Low: Positive risk factor for coronary heart disease Performed By: #### T SCR30 #### [facility] CLIA [id number] [address] [place] Cholesterol in LDL [Mass/Vol] 30 mg/dL Normal <100 [facility] Comment on above: Order Comment: Speci men Type: BLOOD SPECIMEN Ordering Facility: [facility] Address: [address] [place] [address] Result Comment: <100 mg/dL, Optimal 100-129 mg/dL, Near optimal/above optimal 130-159 mg/dL, Borderline high 160-189 mg/dL, High >189 mg/dL, Very high Secondary prevention optimal LDL Cholesterol levels are recommended to be < 70 mg/dL Performed By: #### T SCR30 #### [facility] CLIA [id number] [address] OF [facility] Cholesterol in LDL/Cholesterol in HDL [Mass ratio] 0.70 {ratio} Normal <2.54 [facility] Comment on above: Order Comment: Speci men Type: BLOOD SPECIMEN Ordering Facility: [facility] Address: [address] [place] [address] Result Comment: Refe terencece: 1. National Cholesterol Education Program ATP III Guideline At-A-Glance Quick Desk Reference: National Heart, Lung, and Blood [place]. National Institutes of Health. 2001: NIH Publication No. 01-3305. 2. An International Atherosclerosis Society position paper: global recommendations for the management of dyslipidemia: executive summary, Atherosclerosis. 2014: 232(2):410-413. Performed By: #### T SCR30 #### [facility] CLIA [id number] [address] [place] Cholesterol in VLDL [Mass/Vol] 13 mg/dL Normal <30 [facility] Comment on above: Order Comment: Speci men Type: BLOOD SPECIMEN Ordering Facility: [facility] Address: [address] [place] [address] Performed By: #### T SCR30 #### [facility] CLIA [id number] [address] [place] [address] [place] Cholesterol non HDL [Mass/Vol] 43 mg/dL Normal <130 [facility] Comment on above: Order Comment: Bethaniei omar Type: BLOOD SPECIMEN Ordering Facility: [facility] Address: [address] [place] [address] Result Comment: <130 mg/dL, Optimal 130-159 mg/dL, Near optimal/above optimal 160-189 mg/dL, Borderline high 190-219 mg/dL, High >219 mg/dL, Very high Secondary prevention optimal non HDL Cholesterol levels are recommended to be <100 mg/dL Performed By: #### T SCR30 #### [facility] CLIA [id number] [address] Cholesterol.total/Cholest bonnie in HDL [Mass ratio] 2.00 {ratio} Normal <5.10 [facility] Comment on above: Order Comment: Speci men Type: BLOOD SPECIMEN Ordering Facility: [facility] Address: [address] [place] [address] Performed By: #### T SCR30 #### [facility] CLIA [id number] [address] FASTING TIME 12 hrs Normal [facility] Comment on above: Order Comment: Speci men Type: BLOOD SPECIMEN Ordering Facility: [facility] Address: [address] [place] [address] Performed By: #### T SCR30 #### [facility] CLIA [id number] [address] Triglyceride [Mass/Vol] 67 mg/dL Normal <150 [facility] Comment on above: Order Comment: Speci men Type: BLOOD SPECIMEN Ordering Facility: [facility] Address: [address] [place] [address] Result Comment: <150 mg/dL, Normal 150-199 mg/dL, Borderline high 200-499 mg/dL, High >499 mg/dL, Very high Performed By: #### T SCR30 #### [facility] CLIA [id number] [address] TSH SerPl-aCncon 12-03-2023 TSH Qn 1.050 m[IU]/L Normal 0.270-4.20 0 [facility] Comment on above: Order Comment: Speci men Type: BLOOD SPECIMEN Ordering Facility: [facility] Address: [address] [place] [address] Performed By: #### T [id number] #### [facility] BLOOD BANK CLIA [id number] [address] OF [facility] Nara 12-02-2023 SONALN Telephone (QUIQUE) ----- KAROLINA CANADA ([id number]) 1955 F Date Time Provider Department 12/02/23 DEYANIRA REILLY During your visit today, we recorded the following information about you: Deyanira Reilly MD 12/02/2023 11:08 AM Signed Can we bring Ms. Canada in to discuss her test results with me? Thank you! Allergies As of Date: 12/02/2023 Noted Allergy Reaction PENICILLINS 01/18/2006 4 - Hives ACTOS (PIOGLITAZONE HCL) 05/11/2011 14 - Other: See Comments Comments: muscle spasms ADHESIVE TAPE (ROSINS) 04/12/2013 2 - Rash Comments: Skin comes off with tape Use paper tape ATORVASTATIN 03/24/2018 11 - Vomiting CLOPIDOGREL 01/23/2021 11 - Vomiting CODEINE 04/12/2013 8 - GI Upset 16 - Unknown Comments: Can take small amounts CORTISONE 01/18/2006 Comments: loses nerve sensation DARVOCET A500 (PROPOXYPHENE N-ANTWON*01/18/2006 4 - Hives EFFEXOR (VENLAFAXINE ANALOGUES) 05/11/2011 12 - Shortness of Breath GABAPENTIN 03/13/2019 5 - Intolerance HYDROCHLOROTHIAZIDE 03/13/2019 11 - Vomiting HYDROCODONE BITARTRATE 03/13/2019 8 - GI Upset JANUVIA (SITAGLIPTIN) 05/11/2011 14 - Other: See Comments Comments: muscle spasms LIPITOR (ATORVASTATIN CALCIUM) 05/11/2011 14 - Other: See Comments Comments: abdominal cramping LISINOPRIL 03/13/2019 14 - Other: See Comments LOSARTAN 03/13/2019 14 - Other: See Comments METOPROLOL 08/25/2019 6 - Diarrhea OXYCODONE 03/13/2019 5 - Intolerance OXYCONTIN (OXYCODONE HCL) 05/11/2011 14 - Other: See Comments Comments: headaches PERCOCET (OXYCODONE-ACETAMINOPHEN) 12/09/2012 8 - GI Upset PIOGLITAZONE 03/13/2019 8 - GI Upset PLAVIX (CLOPIDOGREL BISULFATE) 02/21/2016 6 - Diarrhea 11 - Vomiting PROZAC (FLUOXETINE HCL) 05/11/2011 14 - Other: See Comments Comments: low blood pressure SEASONAL ALLERGIES 03/20/2013 14 - Other: See Comments Comments: Itchy eyes, runny nose, sneezing STEROIDS (CORTICOSTEROIDS (GLUCOC*04/12/2013 8 - GI Upset Comments: deathly ill, joint pain SULFA (SULFONAMIDE ANTIBIOTICS) 05/11/2011 4 - Hives 10 - Anaphylaxis Comments: yeast infections TIZANIDINE 03/13/2019 4 - Hives TRAMADOL 03/13/2019 11 - Vomiting Date Reviewed: 11/05/2023 Reviewed by: Rita Aj, RT(R) - Fully Assessed Reason for Visit: Appointment [[id number]] Prescriptions as of 12/07/2023 - famotidine (PEPCID) 20 mg tablet - nitroglycerin sublingual (NITROQUICK) 0.4 mg SL tablet Dissolve 1 tablet under the tongue as needed. FOR CHEST PAIN. IF NO RELIEF CALL 911 - acetaminophen (TYLENOL) 500 mg tablet Take 2 tablets by mouth every 6 hours. - isosorbide mononitrate ER (IMDUR) 30 mg 24 hr tablet Take 1 tablet by mouth once daily. - Blood Pressure Monitor kit Check home blood pressure and heart rate daily. - glimepiride (AMARYL) 4 mg tablet Take 4 mg by mouth daily with breakfast. - atorvastatin (LIPITOR) 40 mg tablet TAKE 1 TABLET BY MOUTH ONCE DAILY - linagliptin (TRADJENTA) 5 mg tab Take 5 mg by mouth once daily. - escitalopram oxalate (LEXAPRO) 10 mg tablet Take 10 mg by mouth once daily. - aspirin, enteric coated (ECOTRIN LOW STRENGTH) 81 mg EC tablet Take 1 tablet by mouth once daily. Facility-Administered Medications as of 12/07/2023 - perflutren lipid microspheres 1.3 mL in NaCl (PF) 0.9% 10 mL injection (DEFINITY) - sodium chloride 0.9 % (flush) 10 mL (BD POSIFLUSH) Meds Comments as of 04/27/2019: Problem List As Of Date 12/02/2023 Noted Resolved CHEST PAIN NOS [R07.9] 03/11/2007 ASCVD [I25.10] 03/11/2007 Mixed hyperlipidemia [E78.2] 03/11/2007 Nausea with Vomiting [R11.2] 01/31/2010 Unspecified Esophagitis [K20.90] 01/31/2010 Diaphragmatic Hernia without Mention of Obstruc*01/31/2010 Acute Gastritis without Mention of Hemorrhage [*01/31/2010 Diarrhea [R19.7] 06/11/2011 Benign neoplasm of colon [D12.6] 06/11/2011 Arthropathy, 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] 12/09/2012 Chronic pain disorder [G89.4] 12/09/2012 Diffuse myofascial pain syndrome [M79.18] 12/09/2012 Adhesive capsulitis of left shoulder [M75.02] 12/21/2012 Left rotator cuff tear [M75.102] 03/20/2013 Acute pain of left shoulder [M25.512] 05/30/2013 Adhesive capsulitis of shoulder [M75.00] 05/30/2013 Arthritis of foot, right [M19.071] 08/15/2013 Right knee pain [M25.561] 01/18/2014 Arthritis of right knee [M17.11] 09/11/2014 Presence of stent in left circumflex coronary a*07/08/2017 Presence of stent in right coronary artery [Z95*07/08/2017 S/P CABG x 4 [Z95.1] 07/08/2017 Chest pain [R07.9] 04/27/2019 Iron deficiency anemia [D50.9] 04/28/2019 Diabetes (HCC) [E11.9] 04/28/2019 Coronary artery disease involving chitimacha heath*04/28/2019 S/P coronary artery stent placement [Z95.5] 05/22/2019 Essential hypertension [I10] 05/22/2019 SVT (supraventricular tachycardia) (HCC), brief*10/02/2019 Palpitations [R00.2] 10/02/2019 Impingement syndrome of left shoulder [ (more content not included)... Normal [facility] CTA HEAD W IVCONon 3 CTA HEAD W IVCON * * *Final Report* * * DATE OF EXAM: Nov 05 2023 1:35PM [facility] 0022 - CTA HEAD W IVCON / PROCEDURE REASON: Occlusion and stenosis of unspecified carotid artery * * * * Physician Interpretation * * * * EXAMINATION: CTA NECK W IVCON, CTA HEAD W IVCON HISTORY: Occlusion and stenosis of unspecified carotid artery. TECHNIQUE: Spiral high resolution axial images were obtained through the head, neck and superior mediastinum following bolus administration of intravenous contrast for CT angiography. 3D maximum intensity projection images were created, reviewed and archived . MQ: CTAHN_4 Contrast: 85 mL Omnipaque [address] Radiation dose: Integrated Dose-Length Product (DLP) for this visit = 787 mGy*cm. CT Dose Reduction Employed: Automated exposure control(AEC) and iterative recon COMPARISON: None. RESULT: BRAIN: Evaluation of the individual slices of the CTA demonstrates no evidence of an acute stroke. ASPECT Score = 10 Hemorrhage: No evidence of acute intracranial hemorrhage. ECASS hemorrhagic transformation score: Not Applicable NECK: Soft tissues: The soft tissue planes are maintained throughout. No evidence of a soft tissue mass in the neck or superior mediastinum. No significant lymphadenopathy is seen. Spine: Alignment is normal. Moderate degenerative changes are present. Lung apices: Centrilobular and paraseptal emphysema. CT ARTERIOGRAM: Extracranial Circulation: Aortic Arch: There is a normal branching pattern from the aortic arch. There is no significant stenosis in the proximal brachiocephalic vessels. Carotid Stenosis: Right Common: No significant stenosis. Right Internal Carotid Plaque: Marked calcified plaque formation. Right Internal Carotid Stenosis (% by NASCET Criteria): 80% Left Common: No significant stenosis. Left Internal Carotid Plaque: Mild plaque formation. Left Internal Carotid Stenosis (% by NASCET Criteria): 0 Cervical Vertebral Arteries: Patency: Bilateral Dominance: Codominant Intracranial Circulation: Anterior Circulation: Patent bilateral intracranial ICAs, ACAs, and MCAs. No aneurysm is identified. Vertebrobasilar Circulation: Patent bilateral V4 vertebral artery segments, basilar artery, and major branch vessels. Both chief digital officer are patent, conventional on the right and on the left. Dural venous sinuses and major deep draining veins are grossly patent. Back Maker (topogram) images: No significant findings. IMPRESSION: 1. No large vessel occlusion or high-grade arterial stenosis intracranially. 2. At least 80% stenosis of the proximal right ICA. No significant stenosis of the left ICA. Arterial blood flow was measured to detect acute large vessel occlusion by computer aided detection software: Not Performed. Concordance between software and imaging review: Not Applicable. Dermatology Nurse: ADOLFO Transcribe Date/Time: Nov 05 2023 2:43P Dictated by : KARI SAEZ MD This examination was interpreted and the report reviewed and electronically signed by: KARI SAEZ MD on Nov 05 2023 2:54PM EST [id number] Normal [facility] CTA NECK W IVCONon 3 CTA NECK W IVCON * * *Final Report* * * DATE OF EXAM: Nov 05 2023 1:35PM [facility] 0024 - CTA NECK W IVCON / PROCEDURE REASON: Occlusion and stenosis of unspecified carotid artery * * * * Physician Interpretation * * * * EXAMINATION: CTA NECK W IVCON, CTA HEAD W IVCON HISTORY: Occlusion and stenosis of unspecified carotid artery. TECHNIQUE: Spiral high resolution axial images were obtained through the head, neck and superior mediastinum following bolus administration of intravenous contrast for CT angiography. 3D maximum intensity projection images were created, reviewed and archived . MQ: CTAHN_4 Contrast: 85 mL Omnipaque [address] Radiation dose: Integrated Dose-Length Product (DLP) for this visit = 787 mGy*cm. CT Dose Reduction Employed: Automated exposure control(AEC) and iterative recon COMPARISON: None. RESULT: BRAIN: Evaluation of the individual slices of the CTA demonstrates no evidence of an acute stroke. ASPECT Score = 10 Hemorrhage: No evidence of acute intracranial hemorrhage. ECASS hemorrhagic transformation score: Not Applicable NECK: Soft tissues: The soft tissue planes are maintained throughout. No evidence of a soft tissue mass in the neck or superior mediastinum. No significant lymphadenopathy is seen. Spine: Alignment is normal. Moderate degenerative changes are present. Lung apices: Centrilobular and paraseptal emphysema. CT ARTERIOGRAM: Extracranial Circulation: Aortic Arch: There is a normal branching pattern from the aortic arch. There is no significant stenosis in the proximal brachiocephalic vessels. Carotid Stenosis: Right Common: No significant stenosis. Right Internal Carotid Plaque: Marked calcified plaque formation. Right Internal Carotid Stenosis (% by NASCET Criteria): 80% Left Common: No significant stenosis. Left Internal Carotid Plaque: Mild plaque formation. Left Internal Carotid Stenosis (% by NASCET Criteria): 0 Cervical Vertebral Arteries: Patency: Bilateral Dominance: Codominant Intracranial Circulation: Anterior Circulation: Patent bilateral intracranial ICAs, ACAs, and MCAs. No aneurysm is identified. Vertebrobasilar Circulation: Patent bilateral V4 vertebral artery segments, basilar artery, and major branch vessels. Both chief digital officer are patent, conventional on the right and on the left. Dural venous sinuses and major deep draining veins are grossly patent. Back Maker (topogram) images: No significant findings. IMPRESSION: 1. No large vessel occlusion or high-grade arterial stenosis intracranially. 2. At least 80% stenosis of the proximal right ICA. No significant stenosis of the left ICA. Arterial blood flow was measured to detect acute large vessel occlusion by computer aided detection software: Not Performed. Concordance between software and imaging review: Not Applicable. Dermatology Nurse: ADOLFO Transcribe Date/Time: Nov 05 2023 2:43P Dictated by : KARI SAEZ MD This examination was interpreted and the report reviewed and electronically signed by: KARI SAEZ MD on Nov 05 2023 2:54PM EST [id number] Normal [facility] No Panel Informationon 11-05 [facility] Absolute lymphocyte countOrd ered By: Charlie Corcoran on 10-20-2023 Lymphocytes Auto (Unsp spec) [#/Vol] 2.85 10*3/uL 0.83-4.[address] [facility] Comment on above: Previous reported re sult: 2.91 X10^3/uLEdited by: GRETA on 10/20/23:1348 AMENDED REPORT 10/20/23 1348 Absolute Lymph previously reported as: 2.91 X10^3/uL Albumin Elph [Mass/Vol]Order ed By: Charlie Corcoran on 10-20-2023 Albumin [Mass/Vol] 3.5 g/dL 2.9-4.4 [facility] Basophil percentageOrdered B y: Charlie Corcoran on 10-20-2023 Basophils/100 WBC (Bld) 1.2 % 0-1 [facility] Comment on above: Previous reported re sult: 1.3 %Edited by: GRETA on 10/20/23:1348 AMENDED REPORT 10/20/23 1348 BASO% previously reported as: 1.3 H % Eosinophils/100 WBC (Bld) 2.6 % 0-[address] [facility] Comment on above: Previous reported re sult: 2.8 %Edited by: GRETA on 10/20/23:1348 AMENDED REPORT 10/20/23 134 EO% previously reported as: 2.8 % Neutrophils (Bld) [#/Vol] 4.7 10*3/uL 2.0-7.[address] [facility] Comment on above: Previous reported re sult: 4.7 X10^3/uLEdited by: GRETA on 10/20/23:1348 AMENDED REPORT 10/20/23 134 Absolute Neut previously reported as: 4.7 X10^3/uL Neutrophils/100 WBC (Bld) 54.7 % 47-[address] [facility] Comment on above: Previous reported re sult: 53.7 %Edited by: GRETA on 10/20/23:1348 AMENDED REPORT 10/20/23 134 NEUT% previously reported as: 53.7 % WBC (Bld) [#/Vol] 8.5 10*3/uL 4.4-11.0 [facility] Comment on above: Previous reported re sult: 8.7 K/rx7Efvwki by: GRETA on 10/20/23:1348 AMENDED REPORT 10/20/23 1348 WBC previously reported as: 8.7 K/mm3 Blood erythrocytes count (nu mber/volume)Ordered By: Charlie Corcoran on 10-20-2023 RBC (Bld) [#/Vol] 4.27 10*6/uL 4.2-5.4 [facility] Comment on above: Previous reported re sult: 4.21 M/ho4Qvnlcy by: GRETA on 10/20/23:1348 AMENDED REPORT 10/20/23 1348 RBC previously reported as: 4.21 M/mm3 Blood hemoglobin measurement (mass/volume)Ordered By: Charlie Corcoran on 10-20-2023 Hemoglobin (Bld) [Mass/Vol] 7.6 g/dL 12.0-15.[address] [facility] Comment on above: Previous reported re sult: 7.8 g/dLEdited by: GRETA on 10/20/23:1348 AMENDED REPORT 10/20/23 1348 HGB previously reported as: 7.8 L g/dL Blood lymphocytes/100 leukoc ytesOrdered By: Charlie Corcoran on 10-20-2023 Lymphocytes/100 WBC (Bld) 33.5 % 19-[address] [facility] Comment on above: Previous reported re sult: 33.6 %Edited by: GRETA on 10/20/23:1348 AMENDED REPORT 10/20/23 1348 LY% previously reported as: 33.6 % Blood monocytes/100 leukocyt esOrdered By: Charlie Corcoran on 10-20-2023 Monocytes/100 WBC (Bld) 7.5 % 0-10 [facility] Comment on above: Previous reported re sult: 8.1 %Edited by: GRETA on 10/20/23:1348 AMENDED REPORT 10/20/23 1348 MONO% previously reported as: 8.1 % Blood platelet mean volumeOr dered By: Charlie Corcoran on 10-20-2023 Platelet mean volume (Bld) [Entitic vol] 9.1 fL 6.2-12.[address] [facility] Comment on above: Previous reported re sult: 9.0 flEdited by: GRETA on 10/20/23:1348 AMENDED REPORT 10/20/23 1348 MPV previously reported as: 9.0 fl Blood schistocytes detection by light microscopyOrdered By: Charlie Corcoran on 10-20-2023 Schistocytes LM Ql (Bld) 1+ [facility] Determination of erythrocyte mean corpuscular volume (MCV)Ordered By: Charlie Corcoran on 10-20-2023 MCV (RBC) [Entitic vol] 67.9 fL 81-99 [facility] Comment on above: Previous reported re sult: 68.9 fLEdited by: GRETA on 10/20/23:1348 AMENDED REPORT 10/20/23 1348 MCV previously reported as: 68.9 L fL Hematocrit Auto (Bld) [Volum e fraction]Ordered By: Charlie Corcoran on 10-20-2023 Hematocrit (Bld) [Volume fraction] 29.0 % 37-[address] [facility] Comment on above: Previous reported re sult: 29.0 %Edited by: GRETA on 10/20/23:1348 AMENDED REPORT 10/20/23 134 HCT previously reported as: 29.0 L % Hemoglobin in reticulocytes (mass per reticulocyte)Ordered By: Charlie Corcoran on 10-20-2023 Hemoglobin (Reticulocytes) [Entitic mass] 16.7 pg 30-[address] [facility] Comment on above: Previous reported re sult: 16.2 pgEdited by: GRETA on 10/20/23:1348 AMENDED REPORT 10/20/23 134 RET-HE previously reported as: 16.2 L pg Interpretation of serum or p lasma protein pattern by immunofixation (narrative resultOrdered By: Charlie Corcoran on 10-20-2023 Protein Fractions Immunofixation Fritz [Interp] Not Observed g/dL Not Observed [facility] Iron measurement (mass/mass) Ordered By: Charlie Corcoran on 10-20-2023 Iron (Unsp spec) [Mass/Mass] 12 ug/dL 50-[address] [facility] Laboratory - Chemistry and C hemistry - challengeOrdered By: David Sy on 10-20-2023 Cobalamin (Vitamin B12) [Mass/Vol] 473 pg/mL 211-[address] [facility] Laboratory - Hematology and Cell countsOrdered By: Charlie Corcoran on 10-20-2023 Anisocytosis Ql (Bld) 2+ [facility] Erythrocyte distribution width (RBC) [Entitic vol] 51.7 fL 35.1-43.9 [facility] Comment on above: Previous reported re sult: 51.9 flEdited by: GRETA on 10/20/23:1348 AMENDED REPORT 10/20/23 134 RDW SD previously reported as: 51.9 H fl Erythrocyte distribution width (RBC) [Ratio] 21.5 % 11.6-14.[address] [facility] Comment on above: Previous reported re sult: 21.7 %Edited by: GRETA on 10/20/23:1348 AMENDED REPORT 10/20/23 134 RDW CV previously reported as: 21.7 H % Immature granulocytes/100 WBC (Bld) 0.500 % 0.0-0.[address] [facility] Comment on above: Previous reported re sult: 0.500 %Edited by: GRETA on 10/20/23:1348 AMENDED REPORT 10/20/23 134 IM GRAN % previously reported as: 0.500 % IG% - Immature Granulocytes (promyelocytes, myelocytes and metamyelocytes) > 1% indicates that a LEFT SHIFT is Present. MCH (RBC) [Entitic mass] 17.8 pg 27.0-32.[address] [facility] Comment on above: Previous reported re sult: 18.5 pgEdited by: GRETA on 10/20/23:1348 AMENDED REPORT 10/20/23 1348 MCH previously reported as: 18.5 L pg Nucleated RBC/100 WBC (Bld) [Ratio] 0 % 0-[address] [facility] Comment on above: Previous reported re sult: 0 %Edited by: GRETA on 10/20/23:1348 AMENDED REPORT 10/20/23 134 NRBC, FLAGGED previously reported as: 0 % MCHC Auto (RBC) [Mass/Vol]Or dered By: Charlie Corcoran on 10-20-2023 MCHC (RBC) [Mass/Vol] 26.2 g/dL 32-36 [facility] Comment on above: Previous reported re sult: 26.9 g/dLEdited by: GRETA on 10/20/23:1348 AMENDED REPORT 10/20/23 1348 MCHC previously reported as: 26.9 L g/dL No Panel InformationOrdered By: Charlie Corcoran on 10-20-2023 Addendum Document Comment . [facility] Comment on above: Protein electrophore sis scan will follow via computer,mail, or parliamentary archivist delivery.Performed at: - [facility] [id number] [place], [place] [id number] Director: Jose Le PhD, Phone: [phone] Anti-Gliadin IgA Antibody 9 units 0-[address] [facility] Comment on above: Negative 0 - 19 Weak Positive 20 - 30 Moderate to Strong Positive >30 Anti-Gliadin IgG Antibody 2 units 0-[address] [facility] Comment on above: Negative 0 - 19 Weak Positive 20 - 30 Moderate to Strong Positive >30 Endomysial IgA Antibody Negative Negative [facility] Immature Platelet Fraction 3.2 % 1.0-7.[address] [facility] Comment on above: Low PLT + Low IPF moise ggest a bone marrow production disorderLow PLT + high IPF suggests peripheral destruction(e.g.ITP, TTP, HIT, DIC, autoimmune) or bone marrow recoveryTrending of serial IPF measurements is recommended when evaluating for bone marrow responesValue above normal range indicates an increase in RBC cellular response from bone marrow. Immature Reticulocyte Fraction 27.80 % 3.00-15.[address] [facility] Comment on above: Previous reported re sult: 24.10 %Edited by: GRETA on 10/20/23:1348 AMENDED REPORT 10/20/23 1348 IM RET FRACTION previously reported as: 24.10 H % Reticulocyte Count 1.91 % 0.5-1.5 [facility] Comment on above: Previous reported re sult: 1.90 %Edited by: GRETA on 10/20/23:1348 AMENDED REPORT 10/20/23 1348 RETIC previously reported as: 1.90 H % Tissue Transglutaminase IgG Ab <2 U/mL 0-[address] [facility] Comment on above: Negative 0 - 5 Weak Positive 6 - 9 Positive >9 Total Iron Binding Capacity 411 ug/dL 250-[address] [facility] Platelets bldOrdered By: Troy Corcoran on 10-20-2023 Platelets (Bld) [#/Vol] 330 10*3/uL 150-[address] [facility] Comment on above: Previous reported re sult: 322 K/[id number] by: GRETA on 10/20/23:1348 AMENDED REPORT 10/20/23 1348 PLT previously reported as: 322 K/mm3 Serum dxqlg-[id number] measu rement by electrophoresisOrdered By: Charlie Corcoran on 10-20-2023 Alpha 1 globulin Elph [Mass/Vol] 0.3 g/dL 0.0-0.[address] [facility] Alpha 1 globulin Elph [Mass/Vol] 1.0 g/dL 0.4-1.[address] [facility] Serum globulin measurement ( mass/volume)Ordered By: Charlie Corcoran on 10-20-2023 Globulin (S) [Mass/Vol] 3.1 g/dL 2.2-3.9 [facility] Serum or plasma IgA measurem ent (mass/volume)Ordered By: Charlie Corcoran on 10-20-2023 IgA [Mass/Vol] 179 mg/dL 87-[address] [facility] Serum or plasma IgG measurem ent (mass/volume)Ordered By: Charlie Corcoran on 10-20-2023 IgG [Mass/Vol] 1002 mg/dL [id number] [facility] Serum or plasma IgM measurem ent (mass/volume)Ordered By: Charlie Corcoran on 10-20-2023 IgM [Mass/Vol] 37 mg/dL 26-[address] [facility] Serum or plasma beta globuli n measurement by electrophoresis (mass/volume)Ordered By: Charlie Corcoran on 10-20-2023 Beta globulin Elph [Mass/Vol] 0.9 g/dL 0.7-1.[address] [facility] Serum or plasma ferritin alba surement (mass/volume)Ordered By: Charlie Corcoran on 10-20-2023 Ferritin [Mass/Vol] 20 ng/mL 8-252 [facility] Serum or plasma gamma globul in measurement by electrophoresis (mass/volume)Ordered By: Charlie Corcoran on 10-20-2023 Gamma globulin Elph [Mass/Vol] 0.9 g/dL 0.4-1.[address] [facility] Serum or plasma immunoelectr ophoresis interpretation (nominal result)Ordered By: Charlie Corcoran on 10-20-2023 Interpretation IEP [Interp] Comment . [facility] Comment on above: No monoclonality det ected. Serum or plasma iron saturat ion measurement (mass fraction)Ordered By: Charlie Corcoran on 10-20-2023 Iron saturation [Mass fraction] 2.9 % 15.0-55.[address] [facility] Serum tissue transglutaminas e IgA antibody assay (units/volume)Ordered By: Charlie Corcoran on 10-20-2023 tTG IgA Qn (S) <2 U/mL 0-[address] [facility] Comment on above: Negative 0 - 3 Weak Positive 4 - 10 Positive >10 Tissue Transglutaminase (tTG) has been identified as the endomysial antigen. Studies have demonstr- ated that endomysial IgA antibodies have over 99% specificity for gluten sensitive enteropathy. Thin prep Papanicolaou smear with manual screeningOrdered By: Charlie Corcoran on 10-20-2023 Thin prep Papanicolaou smear with manual screening 1.2 0.7-1.[address] [facility] Total protein bloodOrdered B y: Charlie Corcoran on 10-20-2023 Protein [Mass/Vol] 6.6 g/dL 6.0-8.5 [facility] CNOVon 10-19-2023 CNOV Office Visit ([facility]) ----- KAROLINA CANADA ([id number]) 1955 F Date Time Provider Department 10/19/23 2:30 PM DEYANIRA REILLY During your visit today, we recorded the following information about you: Pulse Respiration Blood pressure Weight 72/minute 18/minute 110/62 59.9 kg Height 1.626 m Deyanira Reilly MD 10/19/2023 3:05 PM Signed [facility] [place] [facility] OF VASCULAR SURGERY OUTPATIENT VISIT DATE October 19, 2023 OUTPATIENT VISIT TYPE CONSULTATION SERVICE DATE: 10/19/2023 SERVICE TIME: 2:59 PM PRIMARY CARE PHYSICIAN: Tyrel Sy MD REFERRING PROVIDER: Isis Lewis [address] [address] Consult requested for an opinion regarding the evaluation and treatment of the above. My final impression and recommendations will be communicated back to the requesting physician by way of the shared medical record or letter via [place] mail. CHIEF COMPLAINT: Caroitd stenosis HISTORY OF PRESENT ILLNESS: Vascular consultation at the request of Dr. Isis Lewis. A copy of this consultation note will be provided to the requesting physician by way of shared Medical record or letter to requesting physician via US mail. Ms. Canada is a 67 year old female who is seen today for carotid stenosis. Ms. Canada has been followed for a few years with carotid US at [facility] for asymptomatic carotid stenosis - recent US showed an increase in the PSV on the R indicated a greater then 70% stenosis. She has a significant cardiac history including CABGx4, LA and previous cardiac stenting. Has a stress [...] (hypertension) Hx of cardiac cath Knee pain LA (myocardial infarction) (HCC) Nausea Nausea with vomiting [...] ARTERIAL, FOUR+ 03/2006 COLONOSCOPY W/BIOPSY SINGLE/MULTIPLE 06/11/2011 ESOPHAGOGASTRODUODENOSCOP Y TRANSORAL DIAGNOSTIC 01/31/2010 EGD LAPS ABD PRTMANDOMENTUM DX W/WO SPEC BR/WA SPX Laparoscopy x 3 PAST SURGICAL HISTORY OF gallbladder PAST SURGICAL HISTORY OF appendectomy PAST SURGICAL HISTORY OF carpal tunnel bilateral PAST SURGICAL HISTORY OF double hernia surgery PAST SURGICAL HISTORY OF hysterectomy PAST SURGICAL HISTORY OF 2016 Cardiac Stent, x 4 PAST SURGICAL HISTORY OF Open heart due to LA ROTATOR CUFF REPAIR 04/26/2013 left shoulder w/ [...] daily.Disp: 30 tabletRfl: 11 Blood Pressure Monitor [facility] home blood pressure and heart rate daily.Disp: 1 KitRfl: 0 glimepiride (AMARYL) 4 mg tabletTake 4 mg by mouth daily with breakfast.Disp: Rfl: atorvastatin (LIPITOR) 40 mg tabletTAKE 1 TABLET BY MOUTH ONCE DAILYDisp: 30 tabletRfl: 1 (more content not included)... Normal [facility] ECHOon 10-14-2023 Echocardiography Echocardiography Rep ort: Transthoracic Echo Counts Include 234 Beds At [facility] Date of service: 10/14/2023 10:08:58 AM Ordering physician: DEDE SANTA Indication: CAD Technologist: Soraida Isabel [facility] Interpreting physician: Brian Drake DO PATIENT: Name: BERT CANADA : 1955 Age: 67 years Gender: F History of hypertension, dyslipidemia and coronary artery disease. Previous cardiovascular interventions: CABG (2005) PCI Primary rhythm: sinus. Height: 162.60 cm BSA: 1.66 m Weight: 60.78 kg BMI: 23.0 kg/m Heart rate 92 bpm Blood pressure 135/61 mmHg Color Doppler was utilized to interrogate the cardiac valves assessed and spectral Doppler was utilized to determine the flow velocities and pressure gradients reported in this exam. MEASUREMENTS: Value Indexed Normal Max aortic dimension 3.3 cm Ao < 3.8 Left atrial volume 49 ml (biplane A-L) 29 ml/m Bianca <= 34 LV ID (diastole) 4.9 cm (2D) 2.94 cm/m LV ID (systole) 3.1 cm (2D) 1.85 cm/m IVS, leaflet tips 1.0 cm (2D) Posterior wall thickness 0.9 cm (2D) Left ventricular mass 168 g (2D) 101 g/m LV stroke volume 63 ml (2D biplane) LV end diastolic volume 108 ml (2D biplane) 65.1 ml/m 29<=EDVi<62 LV end systolic volume 45 ml (2D biplane) 27.3 ml/m Ejection Fraction 58 % (2D biplane) EF > 54 FINDINGS: LEFT VENTRICLE The left ventricle is mildly dilated. Left ventricular systolic function is normal. Grade I left ventricular diastolic dysfunction. Mitral annular lateral E/e': 9.6. Mitral annular septal E/e': 19.2. Wall Motion: All scored segments are normal. RIGHT VENTRICLE The right ventricle is normal in size. Right ventricular systolic function is normal. RV systolic tissue Doppler velocity is 11.0 cm/s. Estimated right atrial pressure is 3 mmHg (although IVC not seen). LEFT ATRIUM The left atrial cavity is normal in size. RIGHT ATRIUM The right atrial cavity is normal in size. Inferior Vena Cava: The inferior vena cava appears normal measuring 1.0 cm. MITRAL VALVE The mitral valve leaflets are structurally normal. There is no mitral valve regurgitation. The pressure half time is 43 msec. The peak mitral E/A ratio is 0.85. The average mitral E/e' ratio is 14.4. The mitral flow deceleration time is 149 msec. TRICUSPID VALVE The tricuspid valve leaflets are structurally normal. There is no tricuspid valve regurgitation. AORTIC VALVE The aortic valve cusps are structurally normal. There is no aortic valve regurgitation. Tricuspid aortic valve. The peak gradient is 9 mmHg (peak velocity = 153.9 cm/s). PULMONIC VALVE The pulmonic valve cusps are structurally normal. There is no pulmonic valve regurgitation. AORTA The visualized aorta is normal in size. Measurements - Mid ascending aorta 3.3 cm. PERICARDIUM There is no pericardial effusion. CONCLUSIONS: - Exam indication: CAD - The left ventricle is mildly dilated. Left ventricular systolic function is normal. EF = 58 5% (2D biplane) Grade I left ventricular diastolic dysfunction. - The right ventricle is normal in size. Right ventricular systolic function is normal. - There are no significant valvular abnormalities. - Exam was compared with the prior CC echocardiographic exam performed on 03/07/2021 ([facility]). * * * Final * * * CC Pieceable Medical Image : [id number] Normal [facility] CNNURSEon 10-11-2023 CNNURSE Nurse Visit (CAWSTR) ----- KAROLINA CANADA ([id number]) 1955 F Date Time Provider Department 10/11/23 9:15 AM NURSE CARD ADMIN [facility] WSTR CAWSTR During your visit today, we recorded the following information about you: Sameera Salguero RN 10/11/2023 10:45 AM Signed RADIOLOGY SERVICE PROGRESS NOTE SERVICE DATE: 10/11/2023 SERVICE TIME: 914 PATIENT IDENTITY VERIFICATION COMPLETED USING TWO (2) METHODS: Patient confirmed name and Date of verbally. ALLERGIES AND MEDICATIONS REVIEWED BY: Sameera Salguero RN PROCEDURE TYPE: NM STRESS: 0.4 mg of Lexiscan was administered IV at 0930 over 10 Seconds by Sameera Salguero RN Reversal agent used:None LOT [id number] EXP 11/29/26 IV SITE: IV palced by nuclear tecnologist POST EXAM PIV STATUS: Discontinued by Client Support Analyst PATIENT DISCHARGED TO: Nuclear Medicine Department for post stress imaging A Diagnostic radioactive procedure has taken place, with no further precautions necessary other than routine body substance precautions. More information regarding radiation safety can be found using this link: [email or web address] [email or web address] SIGNATURE: Sameera Salguero RN PATIENT NAME:Karolina Canada DATE: 10/11/23 TIME: 10:44 AM Referring Provider: ISIS LEWIS [[id number]] Allergies As of Date: 10/11/2023 Noted Allergy Reaction PENICILLINS 01/18/2006 4 - Hives ACTOS (PIOGLITAZONE HCL) 05/11/2011 14 - Other: See Comments Comments: muscle spasms ADHESIVE TAPE (ROSINS) 04/12/2013 2 - Rash Comments: Skin comes off with tape Use paper tape ATORVASTATIN 03/24/2018 11 - Vomiting CLOPIDOGREL 01/23/2021 11 - Vomiting CODEINE 04/12/2013 8 - GI Upset 16 - Unknown Comments: Can take small amounts CORTISONE 01/18/2006 Comments: loses nerve sensation DARVOCET A500 (PROPOXYPHENE N-ANTWON*01/18/2006 4 - Hives EFFEXOR (VENLAFAXINE ANALOGUES) 05/11/2011 12 - Shortness of Breath GABAPENTIN 03/13/2019 5 - Intolerance HYDROCHLOROTHIAZIDE 03/13/2019 11 - Vomiting HYDROCODONE BITARTRATE 03/13/2019 8 - GI Upset JANUVIA (SITAGLIPTIN) 05/11/2011 14 - Other: See Comments Comments: muscle spasms LIPITOR (ATORVASTATIN CALCIUM) 05/11/2011 14 - Other: See Comments Comments: abdominal cramping LISINOPRIL 03/13/2019 14 - Other: See Comments LOSARTAN 03/13/2019 14 - Other: See Comments METOPROLOL 08/25/2019 6 - Diarrhea OXYCODONE 03/13/2019 5 - Intolerance OXYCONTIN (OXYCODONE HCL) 05/11/2011 14 - Other: See Comments Comments: headaches PERCOCET (OXYCODONE-ACETAMINOPHEN) 12/09/2012 8 - GI Upset PIOGLITAZONE 03/13/2019 8 - GI Upset PLAVIX (CLOPIDOGREL BISULFATE) 02/21/2016 6 - Diarrhea 11 - Vomiting PROZAC (FLUOXETINE HCL) 05/11/2011 14 - Other: See Comments Comments: low blood pressure SEASONAL ALLERGIES 03/20/2013 14 - Other: See Comments Comments: Itchy eyes, runny nose, sneezing STEROIDS (CORTICOSTEROIDS (GLUCOC*04/12/2013 8 - GI Upset Comments: deathly ill, joint pain SULFA (SULFONAMIDE ANTIBIOTICS) 05/11/2011 4 - Hives 10 - Anaphylaxis Comments: yeast infections TIZANIDINE 03/13/2019 4 - Hives TRAMADOL 03/13/2019 11 - Vomiting Date Reviewed: 10/05/2023 Reviewed by: Isis Lewis APRN.MUSIC MINISTER - Fully Assessed Primary Visit Diagnosis:Screening for ischemic heart disease [Z13.6] Prescriptions as of 10/11/2023 - nitroglycerin sublingual (NITROQUICK) 0.4 mg SL tablet Dissolve 1 tablet under the tongue as needed. FOR CHEST PAIN. IF NO RELIEF CALL 911 - Ferrous Gluconate (FERGON) 324 mg (38 mg iron) tablet Take 1 tablet by mouth twice daily. - acetaminophen (TYLENOL) 500 mg tablet Take 2 tablets by mouth every 6 hours. - magnesium hydroxide (MOM) 400 mg/5 mL suspension Take 30 mL by mouth every 6 hours as needed. - cholecalciferol (VITAMIN D3) 1,000 unit tab tablet Take 1,000 Units by mouth once daily. - UNIFINE PENTIPS PLUS 32 gauge x use with insulin pen DAILY DIRECTED - LEVEMIR FLEXTOUCH U-100 INSULIN 100 unit/mL (3 mL) injection pen Inject 46 Units subcutaneously daily at bedtime. - isosorbide mononitrate ER (IMDUR) 30 mg 24 hr tablet Take 1 tablet by mouth once daily. - Blood Pressure Monitor kit Check home blood pressure and heart rate daily. - glimepiride (AMARYL) 4 mg tablet Take 4 mg by mouth daily with breakfast. - atorvastatin (LIPITOR) 40 mg tablet TAKE 1 TABLET BY MOUTH ONCE DAILY - Omeprazole 40 mg capsule Take 40 mg by mouth once daily. - linagliptin (TRADJENTA) 5 mg tab Take 5 mg by mouth once daily. - escitalopram oxalate (LEXAPRO) 10 mg tablet Take 10 mg by mouth once daily. - aspirin, enteric coated (ECOTRIN LOW STRENGTH) 81 mg EC tablet Take 1 tablet by mouth once daily. Facility-Administered Medications as of 10/11/2023 - perflutren lipid microspheres 1.3 mL in NaCl (PF) 0. (more content not included)... Normal [facility] CNPNon 10-11-2023 CNPN Telephone (AGCARDPOB ) ----- KAROLINA CANADA ([id number]) 1955 F Date Time Provider Department 10/11/23 ISIS LEWIS During your visit today, we recorded the following information about you: Megan Thurston LPN 10/11/2023 2:04 PM Signed ----- Message from Isis Lewis APRN.MUSIC MINISTER sent at 10/11/2023 1:59 PM EST ----- Please call patient and notify her of stress testing results. Nuclear med stress testing does not suggest ischemia. No indication to pursue a left heart catheterization based on stress testing results. We will wait for echocardiogram results to determine if there is a cardiac cause for symptoms. Thank you! Megan Thurston LPN 10/11/2023 2:07 PM Signed Spoke to Puneet Canada about test results. Patient voiced understanding. Megan Thurston LPN Allergies As of Date: 10/11/2023 Noted Allergy Reaction PENICILLINS 01/18/2006 4 - Hives ACTOS (PIOGLITAZONE HCL) 05/11/2011 14 - Other: See Comments Comments: muscle spasms ADHESIVE TAPE (ROSINS) 04/12/2013 2 - Rash Comments: Skin comes off with tape Use paper tape ATORVASTATIN 03/24/2018 11 - Vomiting CLOPIDOGREL 01/23/2021 11 - Vomiting CODEINE 04/12/2013 8 - GI Upset 16 - Unknown Comments: Can take small amounts CORTISONE 01/18/2006 Comments: loses nerve sensation DARVOCET A500 (PROPOXYPHENE N-ANTWON*01/18/2006 4 - Hives EFFEXOR (VENLAFAXINE ANALOGUES) 05/11/2011 12 - Shortness of Breath GABAPENTIN 03/13/2019 5 - Intolerance HYDROCHLOROTHIAZIDE 03/13/2019 11 - Vomiting HYDROCODONE BITARTRATE 03/13/2019 8 - GI Upset JANUVIA (SITAGLIPTIN) 05/11/2011 14 - Other: See Comments Comments: muscle spasms LIPITOR (ATORVASTATIN CALCIUM) 05/11/2011 14 - Other: See Comments Comments: abdominal cramping LISINOPRIL 03/13/2019 14 - Other: See Comments LOSARTAN 03/13/2019 14 - Other: See Comments METOPROLOL 08/25/2019 6 - Diarrhea OXYCODONE 03/13/2019 5 - Intolerance OXYCONTIN (OXYCODONE HCL) 05/11/2011 14 - Other: See Comments Comments: headaches PERCOCET (OXYCODONE-ACETAMINOPHEN) 12/09/2012 8 - GI Upset PIOGLITAZONE 03/13/2019 8 - GI Upset PLAVIX (CLOPIDOGREL BISULFATE) 02/21/2016 6 - Diarrhea 11 - Vomiting PROZAC (FLUOXETINE HCL) 05/11/2011 14 - Other: See Comments Comments: low blood pressure SEASONAL ALLERGIES 03/20/2013 14 - Other: See Comments Comments: Itchy eyes, runny nose, sneezing STEROIDS (CORTICOSTEROIDS (GLUCOC*04/12/2013 8 - GI Upset Comments: deathly ill, joint pain SULFA (SULFONAMIDE ANTIBIOTICS) 05/11/2011 4 - Hives 10 - Anaphylaxis Comments: yeast infections TIZANIDINE 03/13/2019 4 - Hives TRAMADOL 03/13/2019 11 - Vomiting Date Reviewed: 10/11/2023 Reviewed by: Talia Galicia, RT(R) - Partially Assessed Reason for Visit: Results [95] Prescriptions as of 10/11/2023 - nitroglycerin sublingual (NITROQUICK) 0.4 mg SL tablet Dissolve 1 tablet under the tongue as needed. FOR CHEST PAIN. IF NO RELIEF CALL 911 - Ferrous Gluconate (FERGON) 324 mg (38 mg iron) tablet Take 1 tablet by mouth twice daily. - acetaminophen (TYLENOL) 500 mg tablet Take 2 tablets by mouth every 6 hours. - magnesium hydroxide (MOM) 400 mg/5 mL suspension Take 30 mL by mouth every 6 hours as needed. - cholecalciferol (VITAMIN D3) 1,000 unit tab tablet Take 1,000 Units by mouth once daily. - UNIFINE PENTIPS PLUS 32 gauge x use with insulin pen DAILY DIRECTED - LEVEMIR FLEXTOUCH U-100 INSULIN 100 unit/mL (3 mL) injection pen Inject 46 Units subcutaneously daily at bedtime. - isosorbide mononitrate ER (IMDUR) 30 mg 24 hr tablet Take 1 tablet by mouth once daily. - Blood Pressure Monitor kit Check home blood pressure and heart rate daily. - glimepiride (AMARYL) 4 mg tablet Take 4 mg by mouth daily with breakfast. - atorvastatin (LIPITOR) 40 mg tablet TAKE 1 TABLET BY MOUTH ONCE DAILY - Omeprazole 40 mg capsule Take 40 mg by mouth once daily. - linagliptin (TRADJENTA) 5 mg tab Take 5 mg by mouth once daily. - escitalopram oxalate (LEXAPRO) 10 mg tablet Take 10 mg by mouth once daily. - aspirin, enteric coated (ECOTRIN LOW STRENGTH) 81 mg EC tablet Take 1 tablet by mouth once daily. Facility-Administered Medications as of 10/11/2023 - perflutren lipid microspheres 1.3 mL in NaCl (PF) 0.9% 10 mL injection (DEFINITY) - sodium chloride 0.9 % (flush) 10 mL (BD POSIFLUSH) Meds Comments as of 04/27/2019: Problem List As Of Date 10/11/2023 Noted Resolved CHEST PAIN NOS [R07.9] 03/11/2007 ASCVD [I25.10] 03/11/2007 Mixed hyperlipidemia [E78.2] 03/11/2007 Nausea with Vomiting [R11.2] 01/31/2010 Unspecified Esophagitis [K20.90] 01/31/2010 Diaphragmatic Hernia without Mention of Obstruc*01/31/2010 Acute Gastritis without Mention of Hemorrhage [*01/31/2010 Diarrhea [R19.7] 06/11/2011 Benign neoplasm of colon [D12.6] 06/11/2011 Arthropathy, 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 Normal [facility] NM CARDIAC PERF STRESS/PHARM on 10-11-2023 NM CARDIAC PERF STRESS/PHARM * * *Final Report* * * DATE OF EXAM: Oct 11 2023 10:35AM WON 0006 - NM CARDIAC PERF STRESS/PHARM / PROCEDURE REASON: multiple diagnoses * * * * Physician Interpretation * * * * Stress Optometrist Assistant Report: Counts Include [facility]eds At [facility] Date of service: 10/11/2023 7:35:54 AM Supervising physician: Rakesh Max MD PATIENT: Name: MRS. KAROLINA CANADA Age: 67 years Gender: F The supervising physician was in the department and immediately available. * * * Final * * * PATIENT: Name: MRS. KAROLINA CANADA Age: 67 years Gender: F CONCLUSIONS: 1. SPECT Perfusion Study: Normal. 2. There is no scintigraphic evidence for inducible ischemia. 3. No evidence of scarred myocardium. 4. Left ventricle is normal in size. The left ventricle systolic function is normal. 5. Right ventricle is normal in size. The right ventricle systolic function is normal. 6. This is a low risk scan. Gated Stress FBP Gated Rest FBP LVEF % 60 61 Prior Study Comparison Prior nuclear cardiology exam was performed on 07/06/19 which was normal. Nuclear Med Report:1-Day Gated SPECT Myocardial Perfusion with Regadenoson Stress: Myocardial perfusion imaging was performed at rest 30 minutes following the IV injection of the radiotracer. The patient received 0.4 mg of regadenoson, via rapid IV push, immediately followed by radiotracer IV. Gated post stress tomographic imaging was performed 30 to 60 minutes later. See administered radiotracer and doses below. Counts Include 234 Beds At [facility] Date of service: 10/11/2023 7:35:54 AM Ordering Physician: ISIS LEWIS. Requesting Physician: ISIS LEWIS Indication: Assessment for known CAD, CP - ECG uniterpretable OR unable to exercise and Dyspnea Interpreting physician: Francesco Jimenze MD Height: 162.56 cm BSA: 1.66 m? Weight: 60.78 kg BMI: 23.0 kg/m? Imaging Protocol Limitation Reason G.I. uptake. Exam Type: Rest Stress Radiopharm: Tc-99m Tetrofosmin Tc-99m Tetrofosmin Dosage(mCi): 11.9 31.7 Stress Agent: Regadenoson 0.4mg Supply provided from [facility] Resting Blood Press: 118/60 mmHg Image Quality The overall study imaging quality was deemed to be fair. The following technical issues were noted: G.I. uptake. FINDINGS: Left Ventricle Wall Motion: Stress IR:3D - All segments are normal. Rest IR:3D - Gated Stress FBP - Reversibility - Gated Rest FBP - Stress IR:3D Stress IR:3D Gated Stress FBP Gated Rest FBP LVEF: 60 % 61 % ED Volume: 124 ml 113 ml ES Volume: 49 ml 44 ml TID: 1.12 Perfusion Findings Stress IR:3D - Summed Score=0 All segments demonstrate normal perfusion. Rest IR:3D - Summed Score=0 All segments demonstrate normal perfusion. Stress IR:3D Rest IR:3D Summed Score=0 Summed Score=0 LEFT VENTRICLE The left ventricle is normal in size. Left ventricular systolic function is normal. Right Ventricle The right ventricle is normal in size. Right ventricle systolic function is normal. Stress Test Findings: There is no scintigraphic evidence for inducible ischemia. There is no evidence of scarring. The left ventricular cavity size is unchanged with stress. * * * Final * * * Stress ECG Report: Counts Include 234 [facility] At [facility] Date of service: 10/11/2023 7:35:54 AM Ordering physician: ISIS LEWIS clinical specialist medical device: Sameera Salguero RN Interpreting physician: Rakesh Max MD Patient name: MRS. KAROLINA CANADA Age: 67 years Gender: F Height: 162.56 cm BSA: 1.66 m? Weight: 60.78 kg BMI: 23.0 kg/m? Indication: Dyspnea on exertion and Atherosclerotic heart disease NOS Stress ECG Conclusion: Conclusion: Non-diagnostic due to LBBB Prior exam comparison: Nondiagnostic at present Stress ECG Summary: The patient's resting heart rate was 64 bpm and blood pressure was 118/60 mmHg. The test was terminated due to end of protocol. No symptoms provoked during stress. The maximum heart rate was 71 bpm, which is 46% of the predicted heart rate for age. Peak blood pressure was 116/64 mmHg. The double product achieved was 8236. Medications: Last Used ISOSORBIDE MONONITRATE 1 Days NITROGLYCERIN PRN Resting ECG: Normal Sinus Rhythm and Complete LBBB Symptoms at rest: No symptoms Pharamcologic Protocol: Regadenoson Stress Exercise Table: +-----+--+---+---+ Stage HR SYS JANET +-----+--+---+---+ 1 75 +-----+--+---+---+ 2 79 122 58 +-----+--+---+---+ 3 75 120 62 +-----+--+---+---+ 4 71 116 64 +-----+--+---+---+ +-----+--+---+---+ HR SYS JANET +-- (more content not included)... Normal [facility] (CAWSTR) ----- KAROLINA CANADA ([id number]) 1955 F Date Time Provider Department 10/08/23 NURSE CARD ADMIN [facility] W[facility] CAWSTR During your visit today, we recorded the following information about you: Sameera Salguero RN 10/08/2023 4:25 PM Signed Called and reviewed the below instructions with the patient. Sameera Salguero RN You are scheduled for a stress test on 10/11/23 at 8:00am. This stress test will appear as 3 appointments on your schedule. You may get multiple reminder calls, but please arrive at the earliest scheduled appointment. Please follow below instructions: *NOTHING BY MOUTH 4 HOURS prior to this test. (you may have sips of water) *NO CAFFEINE FOR 24 HOURS PRIOR TO TESTING (including TEA even decaf, COFFEE- even decaf, CHOCOLATE, ARSLAN- even decaf) *Do NOT take MEDICATIONS CONTAINING CAFFEINE/XANTHINE for 24 HOURS prior to testing: Theophylline, Trental, Excedrin, Anacin, Goody Powders, No Doz, Vivarin, Midol, Diurex, Fiorinal, Fioricet, Esgic (butalbital) *Do NOT take Calcium Channel Blockers 24 HOURS prior to test. *Do NOT take Beta blockers 24 HOURS prior to test UNLESS your doctor tells you otherwise. *Do NOT use the following medications 48 HOURS prior to this test: Viagra(Sildenafil citrate), Cialis(Tadalafil), Vardenafil (Levitra, Stanyx), Avanfil (Stendra). *Do not take any of these meds prior to test unless provider directs you otherwise; Nitroglycerine (ex:Deponit, Nitrostat) Isosorbide (ex:Isordil, Sorbitrate,Imdur,Ismo). Medications on your list you should hold on Wednesday: Imdur and Nitro *All other medications may be taken as you normally would. *Guidelines for Diabetics: If you take insulin to control your blood sugar, ask you physician what amount you should take the day of the test. If you take pills to control blood sugar, on the day of the test, do NOT take them until AFTER the test. *FAILURE TO FOLLOW THESE INSTRUCTIONS WILL RESULT IN HAVING TO RESCHEDULE THE TEST. *If you use an inhaler, bring it along with you just in case *THIS TEST MAY TAKE UP TO 3 HOURS TO COMPLETE. Please check in on the first floor at Radiology: [address]; [place] [address] * If you need to cancel or reschedule this test or have any questions regarding this test, please call [phone]. Allergies As of Date: 10/08/2023 Noted Allergy Reaction PENICILLINS 01/18/2006 4 - Hives ACTOS (PIOGLITAZONE HCL) 05/11/2011 14 - Other: See Comments Comments: muscle spasms ADHESIVE TAPE (ROSINS) 04/12/2013 2 - Rash Comments: Skin comes off with tape Use paper tape ATORVASTATIN 03/24/2018 11 - Vomiting CLOPIDOGREL 01/23/2021 11 - Vomiting CODEINE 04/12/2013 8 - GI Upset 16 - Unknown Comments: Can take small amounts CORTISONE 01/18/2006 Comments: loses nerve sensation DARVOCET A500 (PROPOXYPHENE N-ANTWON*01/18/2006 4 - Hives EFFEXOR (VENLAFAXINE ANALOGUES) 05/11/2011 12 - Shortness of Breath GABAPENTIN 03/13/2019 5 - Intolerance HYDROCHLOROTHIAZIDE 03/13/2019 11 - Vomiting HYDROCODONE BITARTRATE 03/13/2019 8 - GI Upset JANUVIA (SITAGLIPTIN) 05/11/2011 14 - Other: See Comments Comments: muscle spasms LIPITOR (ATORVASTATIN CALCIUM) 05/11/2011 14 - Other: See Comments Comments: abdominal cramping LISINOPRIL 03/13/2019 14 - Other: See Comments LOSARTAN 03/13/2019 14 - Other: See Comments METOPROLOL 08/25/2019 6 - Diarrhea OXYCODONE 03/13/2019 5 - Intolerance OXYCONTIN (OXYCODONE HCL) 05/11/2011 14 - Other: See Comments Comments: headaches PERCOCET (OXYCODONE-ACETAMINOPHEN) 12/09/2012 8 - GI Upset PIOGLITAZONE 03/13/2019 8 - GI Upset PLAVIX (CLOPIDOGREL BISULFATE) 02/21/2016 6 - Diarrhea 11 - Vomiting PROZAC (FLUOXETINE HCL) 05/11/2011 14 - Other: See Comments Comments: low blood pressure SEASONAL ALLERGIES 03/20/2013 14 - Other: See Comments Comments: Itchy eyes, runny nose, sneezing STEROIDS (CORTICOSTEROIDS (GLUCOC*04/12/2013 8 - GI Upset Comments: deathly ill, joint pain SULFA (SULFONAMIDE ANTIBIOTICS) 05/11/2011 4 - Hives 10 - Anaphylaxis Comments: yeast infections TIZANIDINE 03/13/2019 4 - Hives TRAMADOL 03/13/2019 11 - Vomiting Date Reviewed: 10/05/2023 Reviewed by: Isis Lewis APRN.CNP - Fully Assessed Reason for Visit: Stress Test Instructions [Other] Prescriptions as of 10/08/2023 - nitroglycerin sublingual (NITROQUICK) 0.4 mg SL tablet Dissolve 1 tablet under the tongue as needed. FOR CHEST PAIN. IF NO RELIEF CALL 911 - Ferrous Gluconate (FERGON) 324 mg (38 mg iron) tablet Take 1 tablet by mouth twice daily. - acetaminophen (TYLENOL) 500 mg tablet Take 2 tablets by mouth every 6 hours. - magnesium hydroxide (MOM) 400 mg/5 mL suspension Take 30 mL by mouth every 6 hours as needed. - cholecalciferol (VITAMIN D3) 1,000 unit tab tablet Take 1,000 Units by mouth once daily. - UNIFINE PENTIPS PLUS 32 gauge x 5/ us (more content not included)... Normal [facility] CNOVon 10-01-2023 CNOV Office Visit (AGCCHEIKH POB) ----- KAROLINA CANADA ([id number]) 1955 F Date Time Provider Department 10/01/23 1:00 PM ISIS LEWIS During your visit today, we recorded the following information about you: Pulse Blood pressure Weight Height 73/minute 118/57 60.8 kg 1.626 m Payton Bravo MA 10/01/2023 12:47 PM Signed No cardiac concerns today Pt does report some chest pains last night Isis Lewis APRN.CNP 10/05/2023 1:17 PM Signed Chief Complaint Patient presents with: Chest Pain History of Present Illness: Karolina Canada is a very pleasant 67 year old female who presents for 4 week follow up. She has a PMhx of CAD (s/p PCI to RCA 2006 with subsequent CABG x4 in 2006 subsequent PCI to OM 2016), chronic angina, hypertension, hyperlipidemia, DM2, carotid stenosis, former smoker, COPD, patient reported history of a lung resection, patient reported history of anemia, former smoker. She was seen in new consult by Dr. Santa in office last month. She has seen multiple cardiologists for different opinions including Dr. Khan at our [place] location, and Dr. Mancilla at [facility]. She underwent a previous cardiac catheterization by Dr. Lopez at [facility] in 2019. Today, she endorses limiting fatigue, dyspnea on exertion, chest discomfort and lightheadedness. Reported lower extremity swelling has resolved without any clear intervention. She is not able to make her bed or walk around the store without feeling limited by symptoms. She states she had a left heart catheterization 6 months ago at [facility]. Results are not available for my review. [...] (hypertension) Hx of cardiac cath Knee pain LA (myocardial infarction) (HCC) Nausea Nausea with vomiting [...] ARTERIAL, FOUR+ 03/2006 COLONOSCOPY W/BIOPSY SINGLE/MULTIPLE 06/11/2011 ESOPHAGOGASTRODUODENOSCOP Y TRANSORAL DIAGNOSTIC 01/31/2010 EGD LAPS ABD PRTMANDOMENTUM DX W/WO SPEC BR/WA SPX Laparoscopy x 3 PAST SURGICAL HISTORY OF gallbladder PAST SURGICAL HISTORY OF appendectomy PAST SURGICAL HISTORY OF carpal tunnel bilateral PAST SURGICAL HISTORY OF double hernia surgery PAST SURGICAL HISTORY OF hysterectomy PAST SURGICAL HISTORY OF 2016 Cardiac Stent, x 4 PAST SURGICAL HISTORY OF Open heart due to [place] ROTATOR CUFF REPAIR 04/26/2013 left shoulder w/ [...] Other: See Comments Metoprolol Diarrhea Oxycodone Intolerance Ox (more content not included)... Normal [facility] Nara 09-23-2023 SONALN Telephone (AGCARDPOB ) ----- KAROLINA CANADA ([id number]) 1955 F Date Time Provider Department 09/23/23 DEDE SANTA During your visit today, we recorded the following information about you: Jennifer Ramon RN 09/23/2023 11:21 AM Signed Spoke with pt. She reports her PCP is arranging for her to have the echo ordered at 09/03/[address] Santa done at [place]. Pt encouraged to have prior to her 10/01/23 OV if possible. ZAYNAB Silver Stacey, RN 09/23/2023 12:00 PM Signed Left message on [employer] requesting pt return call with date of echo. If pt cannot have echo by 10/01/23 OV we will need to move the appt our until after echo is completed.Office phone number provided. ZAYNAB Silver Stacey, RN 09/29/2023 8:57 AM Signed Spoke with pt. She reports she was not to have an echo but rather get the results from an echo she had done in January. She reports having seen Dr Young in the past. I called [facility] ([phone]). Thais agreeable to fax echo report, carotid doppler report and holter reprot to [phone]. ZAYNAB Silver Stacey, RN 09/29/2023 9:33 AM Signed Echo 02/02/23 Carotid Doppler 04/30/23 Event Monitor 05/18/23 Scanned into Epic. Jennifer Ramon RN Allergies As of Date: 09/23/2023 Noted Allergy Reaction PENICILLINS 01/18/2006 4 - Hives ACTOS (PIOGLITAZONE HCL) 05/11/2011 14 - Other: See Comments Comments: muscle spasms ADHESIVE TAPE (ROSINS) 04/12/2013 2 - Rash Comments: Skin comes off with tape Use paper tape ATORVASTATIN 03/24/2018 11 - Vomiting CLOPIDOGREL 01/23/2021 11 - Vomiting CODEINE 04/12/2013 8 - GI Upset 16 - Unknown Comments: Can take small amounts CORTISONE 01/18/2006 Comments: loses nerve sensation DARVOCET A500 (PROPOXYPHENE N-ANTWON*01/18/2006 4 - Hives EFFEXOR (VENLAFAXINE ANALOGUES) 05/11/2011 12 - Shortness of Breath GABAPENTIN 03/13/2019 5 - Intolerance HYDROCHLOROTHIAZIDE 03/13/2019 11 - Vomiting HYDROCODONE BITARTRATE 03/13/2019 8 - GI Upset JANUVIA (SITAGLIPTIN) 05/11/2011 14 - Other: See Comments Comments: muscle spasms LIPITOR (ATORVASTATIN CALCIUM) 05/11/2011 14 - Other: See Comments Comments: abdominal cramping LISINOPRIL 03/13/2019 14 - Other: See Comments LOSARTAN 03/13/2019 14 - Other: See Comments METOPROLOL 08/25/2019 6 - Diarrhea OXYCODONE 03/13/2019 5 - Intolerance OXYCONTIN (OXYCODONE HCL) 05/11/2011 14 - Other: See Comments Comments: headaches PERCOCET (OXYCODONE-ACETAMINOPHEN) 12/09/2012 8 - GI Upset PIOGLITAZONE 03/13/2019 8 - GI Upset PLAVIX (CLOPIDOGREL BISULFATE) 02/21/2016 6 - Diarrhea 11 - Vomiting PROZAC (FLUOXETINE HCL) 05/11/2011 14 - Other: See Comments Comments: low blood pressure SEASONAL ALLERGIES 03/20/2013 14 - Other: See Comments Comments: Itchy eyes, runny nose, sneezing STEROIDS (CORTICOSTEROIDS (GLUCOC*04/12/2013 8 - GI Upset Comments: deathly ill, joint pain SULFA (SULFONAMIDE ANTIBIOTICS) 05/11/2011 4 - Hives 10 - Anaphylaxis Comments: yeast infections TIZANIDINE 03/13/2019 4 - Hives TRAMADOL 03/13/2019 11 - Vomiting Date Reviewed: 09/03/2023 Reviewed by: Matilda Benson MA - Fully Assessed Reason for Visit: Orders [681] Prescriptions as of 11/17/2023 - nitroglycerin sublingual (NITROQUICK) 0.4 mg SL tablet Dissolve 1 tablet under the tongue as needed. FOR CHEST PAIN. IF NO RELIEF CALL 911 - Ferrous Gluconate (FERGON) 324 mg (38 mg iron) tablet Take 1 tablet by mouth twice daily. - acetaminophen (TYLENOL) 500 mg tablet Take 2 tablets by mouth every 6 hours. - magnesium hydroxide (MOM) 400 mg/5 mL suspension Take 30 mL by mouth every 6 hours as needed. - cholecalciferol (VITAMIN D3) 1,000 unit tab tablet Take 1,000 Units by mouth once daily. - UNIFINE PENTIPS PLUS 32 gauge x 5/32 use with insulin pen DAILY DIRECTED - LEVEMIR FLEXTOUCH U-100 INSULIN 100 unit/mL (3 mL) injection pen Inject 46 Units subcutaneously daily at bedtime. - isosorbide mononitrate ER (IMDUR) 30 mg 24 hr tablet Take 1 tablet by mouth once daily. - Blood Pressure Monitor kit Check home blood pressure and heart rate daily. - glimepiride (AMARYL) 4 mg tablet Take 4 mg by mouth daily with breakfast. - atorvastatin (LIPITOR) 40 mg tablet TAKE 1 TABLET BY MOUTH ONCE DAILY - Omeprazole 40 mg capsule Take 40 mg by mouth once daily. - linagliptin (TRADJENTA) 5 mg tab Take 5 mg by mouth once daily. - escitalopram oxalate (LEXAPRO) 10 mg tablet Take 10 mg by mouth once daily. - aspirin, enteric coated (ECOTRIN LOW STRENGTH) 81 mg EC tablet Take 1 tablet by mouth once daily. Facility-Administered Medications as of 11/17/2023 - perflutren lipid microspheres 1.3 mL in NaCl (PF) 0.9% 10 mL injection (DEFINITY) - sodium chloride 0.9 % (flush) 10 mL (BD POSIFLUSH) Meds Comments as of 04/27/2019: Problem List As Of Date 09/23/2023 Noted Resolved (more content not included)... Normal [facility] Basophil percentageOrdered B y: Charlie Corcoran on 09-10-2023 Creatinine [Mass/Vol] 1.0 mg/dL 0.55-1.02 [facility] - Chemistry and C hemistry - challengeOrdered By: Charlie Corcoran on 09-10-2023 GFR/1.73 sq M.predicted among non-blacks MDRD (S/P/Bld) [Vol rate/Area] 58.0000 mL/min/{1.73_m2} >[address] [facility] CNOVon 09-03-2023 CNOV Office Visit (BERNICE MONTOYA) ----- KAROLINA CANADA ([id number]) 1955 F Date Time Provider Department 09/03/23 1:20 PM DEDE SANTA During your visit today, we recorded the following information about you: Pulse Blood pressure Weight Height 78/minute 83/41 59.9 kg 1.626 m Matilda Benson MA 09/03/2023 1:31 PM Signed C/o chest pain at times,c/o being fatigue. DARLENE Marie Negar, MD 09/03/2023 3:11 PM Signed [facility] [place] [facility] Department of Cardiovascular Medicine SECTION OF INTERVENTIONAL CARDIOLOGY OUTPATIENT VISIT DATE 09/03/2023 OUTPATIENT VISIT TYPE NEW PRIMARY CARE PHYSICIAN: Tyrel Sy ([place]) [address] [place] [id number] REFERRING PHYSICIAN: SELF CHIEF COMPLAINT: Patient presents [...] mentioned that about 5 months ago has [facility] out side hospital and ever since has [...] (hypertension) Hx of cardiac cath Knee pain LA (myocardial infarction) (HCC) Nausea Nausea with vomiting OA (osteoarthritis) Reflux Rotator cuff (capsule) sprain Rotator cuff tear, left S/P CABG (coronary artery bypass graft) S/P primary angioplasty with coronary stent 2006 RCA Status post primary angioplasty 2015 OM1 Stomach pain Unspecified cardiovascular disease Vomiting PAST SURGICAL HISTORY Procedure Laterality Date ARTHROSCOPY KNEE DIAGNOSTIC W/WO SYNOVIAL BX SPX 2005 Arthroscopy, knee, Rt. x3 CABG, ARTERIAL, FOUR+ 03/2006 COLONOSCOPY W/BIOPSY SINGLE/MULTIPLE 06/11/2011 ESOPHAGOGASTRODUODENOSCOP Y TRANSORAL DIAGNOSTIC 01/31/2010 EGD LAPS ABD PRTMANDOMENTUM DX W/WO SPEC BR/WA SPX Laparoscopy x 3 PAST SURGICAL HISTORY OF gallbladder PAST SURGICAL HISTORY OF appendectomy PAST SURGICAL HISTORY OF carpal tunnel bilateral PAST SURGICAL HISTORY OF double hernia surgery PAST SURGICAL HISTORY OF hysterectomy PAST SURGICAL HISTORY OF 2016 Cardiac Stent, x 4 PAST SURGICAL HISTORY OF Open heart due to [place] ROTATOR CUFF REPAIR 04/26/2013 left shoulder w/ [...] nose, sneezing Steroids [Corticost* GI Upset deathly ill, joint pain Sulfa (Sulfonamide * Hives, Anaphylaxis yeast infections Tizanidine Hives Tramadol Vomiting MEDICATION (more content not included)... Normal [facility] Absolute lymphocyte countOrd ered By: David Sy on 07-28-2023 Lymphocytes Auto (Unsp spec) [#/Vol] 1.91 10*3/uL 0.83-4.[address] [facility] Basophil percentageOrdered B y: David Sy on 07-28-2023 Basophils/100 WBC (Bld) 1.1 % 0-1 [facility] Bilirubin [Mass/Vol] 0.90 mg/dL 0.20-1.00 [facility] Comment on above: For patients on eltr ombopag therapy, use of Dimension [place] TBIL is not recommended. Chloride [Moles/Vol] 101 mmol/L 98-107 [facility] Eosinophils/100 WBC (Bld) 1.1 % 0-[address] [facility] Glucose [Mass/Vol] 149 mg/dL 74-106 [facility] Comment on above: Fasting Glucose resu lt greater than or equal to 126 mg/dL suggests DIABETES MELLITUS per A.D.A. criteria. Neutrophils (Bld) [#/Vol] 5.8 10*3/uL 2.0-7.[address] [facility] Neutrophils/100 WBC (Bld) 69.1 % 47-[address] [facility] Potassium [Moles/Vol] 4.4 mmol/L 3.5-5.1 [facility] Protein [Mass/Vol] 7.3 g/dL 6.4-8.2 [facility] Sodium [Moles/Vol] 134 mmol/L 136-145 [facility] WBC (Bld) [#/Vol] 8.3 10*3/uL 4.4-11.0 [facility] Blood erythrocytes count (nu mber/volume)Ordered By: David Sy on 07-28-2023 RBC (Bld) [#/Vol] 4.40 10*6/uL 4.2-5.4 [facility] Blood hemoglobin measurement (mass/volume)Ordered By: David Sy on 07-28-2023 Hemoglobin (Bld) [Mass/Vol] 8.4 g/dL 12.0-15.[address] [facility] Blood lymphocytes/100 leukoc ytesOrdered By: David Sy on 07-28-2023 Lymphocytes/100 WBC (Bld) 22.9 % 19-[address] [facility] Blood monocytes/100 leukocyt esOrdered By: David Sy on 07-28-2023 Monocytes/100 WBC (Bld) 5.4 % 0-10 [facility] Blood platelet mean volumeOr dered By: David Sy on 07-28-2023 Platelet mean volume (Bld) [Entitic vol] 9.5 fL 6.2-12.[address] [facility] Determination of erythrocyte mean corpuscular volume (MCV)Ordered By: David Sy on 07-28-2023 MCV (RBC) [Entitic vol] 70.7 fL 81-99 [facility] Hematocrit Auto (Bld) [Volum e fraction]Ordered By: David Sy on 07-28-2023 Hematocrit (Bld) [Volume fraction] 31.1 % 37-[address] [facility] Laboratory - Chemistry and C hemistry - challengeOrdered By: David Sy on 07-28-2023 ALP [Catalytic activity/Vol] 94 U/L 45-[address] [facility] ALT [Catalytic activity/Vol] 17 U/L 13-[address] [facility] CO2 [Moles/Vol] 25.0 mmol/L 21.0-32.[address] [facility] Globulin (S) [Mass/Vol] 3.8 g/dL 2.2-4.2 [facility] Urea nitrogen/Creatinine [Mass ratio] 12.3 mg/mg 10-[address] [facility] Laboratory - Hematology and Cell countsOrdered By: David Sy on 07-28-2023 Erythrocyte distribution width (RBC) [Entitic vol] 50.5 fL 35.1-43.9 [facility] Erythrocyte distribution width (RBC) [Ratio] 20.0 % 11.6-14.[address] [facility] Immature granulocytes/100 WBC (Bld) 0.400 % 0.0-0.[address] [facility] Comment on above: IG% - Immature Granu locytes (promyelocytes, myelocytes and metamyelocytes) > 1% indicates that a LEFT SHIFT is Present. MCH (RBC) [Entitic mass] 19.1 pg 27.0-32.[address] [facility] Nucleated RBC/100 WBC (Bld) [Ratio] 0 % 0-[address] [facility] MCHC Auto (RBC) [Mass/Vol]Or dered By: David Sy on 07-28-2023 MCHC (RBC) [Mass/Vol] 27.0 g/dL 32-36 [facility] No Panel InformationOrdered By: David Sy on 07-28-2023 Estimated GFR (MDRD) Amer 81 mL/min >[address] [facility] Comment on above: GFR Calc Estimated GFR (MDRD) Non-Af Amer 67 mL/min >[address] [facility] Comment on above: Non- GFR Calc Thyroid Stimulating Hormone (TSH) 0.94 uIU/mL 0.358-3.[address] [facility] Platelets bldOrdered By: Uzair Sy on 07-28-2023 Platelets (Bld) [#/Vol] 323 10*3/uL 150-[address] [facility] Serum or plasma albumin baldemar urement (mass/volume)Ordered By: David Sy on 07-28-2023 Albumin [Mass/Vol] 3.5 g/dL 3.2-5.0 [facility] Serum or plasma albumin/glob ulin mass ratioOrdered By: David Sy on 07-28-2023 Albumin/Globulin [Mass ratio] 0.9 {ratio} 0.9-2.[address] [facility] Serum or plasma calcium baldemar urement (mass/volume)Ordered By: David Sy on 07-28-2023 Calcium [Mass/Vol] 8.7 mg/dL 8.5-10.1 [facility] Serum or plasma creatinine m easurement (mass/volume)Ordered By: David Sy on 07-28-2023 Creatinine [Mass/Vol] 0.90 mg/dL 0.55-1.02 [facility] Comment on above: The validity of the calculated GFR & GFRAA in patients over 70 years has not been determined. Clinical correlation is essential. Serum or plasma nicotine abla surement (mass/volume)Ordered By: David Sy on 07-28-2023 Nicotine [Mass/Vol] 9.3 ug/mL . [facility] Comment on above: This test was develo ped and its performance characteristicsdetermined by [facility]. It has not been cleared orapproved by the Food and Drug Administration.Nicotine levels greater than 2.0 are consistent with theuse of tobacco or tobacco cessation products. Serum or plasma urea nitroge n measurement (mass/volume)Ordered By: David Sy on 07-28-2023 Urea nitrogen [Mass/Vol] 11 mg/dL 7-[address] [facility] Thin prep Papanicolaou smear with manual screeningOrdered By: David Sy on 07-28-2023 Thin prep Papanicolaou smear with manual screening 21 U/L 15-[address] [facility] Thin prep Papanicolaou smear with manual screening 8 5-[address] [facility] Thin prep Papanicolaou smear with manual screening 171.4 ug/mL . [facility] Comment on above: This test was develo ped and its performance characteristicsdetermined by [facility]. It has not been cleared orapproved by the Food and Drug Administration.Cotinine levels greater than 20.0 are consistent with theuse of tobacco or tobacco cessation products.Performed at: [facility] [address] [id number] Director: Dotty Kerns MD, Phone: [phone] Iron measurement (mass/mass) Ordered By: David Sy on 05-12-2023 Iron (Unsp spec) [Mass/Mass] 16 ug/dL 50-[address] [facility] No Panel InformationOrdered By: David Sy on 05-12-2023 Total Iron Binding Capacity 429 ug/dL 250-[address] [facility] Serum or plasma ferritin alba surement (mass/volume)Ordered By: David Sy on 05-12-2023 Ferritin [Mass/Vol] 27 ng/mL 8-252 [facility] Laboratory - Chemistry and C hemistry - challengeOrdered By: David Sy on 05-11-2023 Natriuretic peptide B (Bld) [Mass/Vol] 93.3 pg/mL 0-[address] [facility] Glucose Glucometer (BldC) [M ass/Vol]Ordered By: Charlie Corcoran on 05-05-2023 Glucose [Mass/Vol] 145 mg/dL 74-106 [facility] Comment on above: MANAGEMENT OF PATIEN T CARE PER NURSING PROTOCOL Absolute lymphocyte countOrd ered By: Casi Verma on 04-21-2023 Lymphocytes Auto (Unsp spec) [#/Vol] 3.35 10*3/uL 0.83-4.[address] [facility] Basophil percentageOrdered B y: Casi Verma on 04-21-2023 Basophils/100 WBC (Bld) 1.2 % 0-1 [facility] Chloride [Moles/Vol] 103 mmol/L 98-107 [facility] Eosinophils/100 WBC (Bld) 2.1 % 0-[address] [facility] Glucose [Mass/Vol] 127 mg/dL 74-106 [facility] Comment on above: Fasting Glucose resu lt greater than or equal to 126 mg/dL suggests DIABETES MELLITUS per A.D.A. criteria. Neutrophils (Bld) [#/Vol] 4.7 10*3/uL 2.0-7.[address] [facility] Neutrophils/100 WBC (Bld) 52.0 % 47-[address] [facility] Potassium [Moles/Vol] 4.2 mmol/L 3.5-5.1 [facility] Sodium [Moles/Vol] 137 mmol/L 136-145 [facility] WBC (Bld) [#/Vol] 9.0 10*3/uL 4.4-11.0 [facility] Blood erythrocytes count (nu mber/volume)Ordered By: Casi Verma on 04-21-2023 RBC (Bld) [#/Vol] 4.47 10*6/uL 4.2-5.4 [facility] Blood hemoglobin measurement (mass/volume)Ordered By: Casi Verma on 04-21-2023 Hemoglobin (Bld) [Mass/Vol] 9.6 g/dL 12.0-15.[address] [facility] Blood lymphocytes/100 leukoc ytesOrdered By: Casi Verma on 04-21-2023 Lymphocytes/100 WBC (Bld) 37.1 % 19-[address] [facility] Blood monocytes/100 leukocyt esOrdered By: Casi Verma on 04-21-2023 Monocytes/100 WBC (Bld) 7.3 % 0-10 [facility] Blood platelet mean volumeOr dered By: Casi Verma on 04-21-2023 Platelet mean volume (Bld) [Entitic vol] 9.2 fL 6.2-12.[address] [facility] Determination of erythrocyte mean corpuscular volume (MCV)Ordered By: Casi Verma on 04-21-2023 MCV (RBC) [Entitic vol] 73.2 fL 81-99 [facility] Hematocrit Auto (Bld) [Volum e fraction]Ordered By: Casi Verma on 04-21-2023 Hematocrit (Bld) [Volume fraction] 32.7 % 37-[address] [facility] Laboratory - Chemistry and C hemistry - challengeOrdered By: Casi Verma on 04-21-2023 CO2 [Moles/Vol] 28.0 mmol/L 21.0-32.[address] [facility] Magnesium [Mass/Vol] 2.2 mg/dL 1.6-2.6 [facility] Natriuretic peptide B (Bld) [Mass/Vol] 102.9 pg/mL 0-[address] [facility] Urea nitrogen/Creatinine [Mass ratio] 9.2 mg/mg 10-[address] [facility] Laboratory - Hematology and Cell countsOrdered By: Casi Verma on 04-21-2023 Erythrocyte distribution width (RBC) [Entitic vol] 50.8 fL 35.1-43.9 [facility] Erythrocyte distribution width (RBC) [Ratio] 19.6 % 11.6-14.[address] [facility] Immature granulocytes/100 WBC (Bld) 0.300 % 0.0-0.[address] [facility] Comment on above: IG% - Immature Granu locytes (promyelocytes, myelocytes and metamyelocytes) > 1% indicates that a LEFT SHIFT is Present. MCH (RBC) [Entitic mass] 21.5 pg 27.0-32.[address] [facility] Nucleated RBC/100 WBC (Bld) [Ratio] 0 % 0-[address] [facility] MCHC Auto (RBC) [Mass/Vol]Or dered By: Casi Verma on 04-21-2023 MCHC (RBC) [Mass/Vol] 29.4 g/dL 32-36 [facility] No Panel InformationOrdered By: Casi Verma on 04-21-2023 Estimated GFR (MDRD) Amer 73 mL/min >[address] [facility] Comment on above: GFR Calc Estimated GFR (MDRD) Non-Af Amer 61 mL/min >[address] [facility] Comment on above: Non- GFR Calc Thyroid Stimulating Hormone (TSH) 1.03 uIU/mL 0.358-3.[address] [facility] Platelets bldOrdered By: Cezar Verma on 04-21-2023 Platelets (Bld) [#/Vol] 373 10*3/uL 150-[address] [facility] Serum or plasma calcium baldemar urement (mass/volume)Ordered By: Casi Verma on 04-21-2023 Calcium [Mass/Vol] 9.3 mg/dL 8.5-10.1 [facility] Serum or plasma creatinine m easurement (mass/volume)Ordered By: Casi Verma on 04-21-2023 Creatinine [Mass/Vol] 0.98 mg/dL 0.55-1.02 [facility] Comment on above: The validity of the calculated GFR & GFRAA in patients over 70 years has not been determined. Clinical correlation is essential. Serum or plasma urea nitroge n measurement (mass/volume)Ordered By: Casi Verma on 04-21-2023 Urea nitrogen [Mass/Vol] 9 mg/dL 7-[address] [facility] Thin prep Papanicolaou smear with manual screeningOrdered By: Casi Verma on 04-21-2023 Thin prep Papanicolaou smear with manual screening 6 5-[address] [facility] Absolute lymphocyte countOrd ered By: Dr. Young on 02-05-2023 Lymphocytes Auto (Unsp spec) [#/Vol] 2.68 10*3/uL 0.83-4.[address] [facility] Basophil percentageOrdered B y: Dr. Young on 02-05-2023 Basophils/100 WBC (Bld) 0.8 % 0-1 [facility] Chloride [Moles/Vol] 97 mmol/L 98-107 [facility] Eosinophils/100 WBC (Bld) 1.0 % 0-[address] [facility] Glucose [Mass/Vol] 232 mg/dL 74-106 [facility] Comment on above: Glucose result great er than or equal to 200 mg/dLsuggests DIABETES MELLITUS per A.D.A. criteria. Neutrophils (Bld) [#/Vol] 7.7 10*3/uL 2.0-7.[address] [facility] Neutrophils/100 WBC (Bld) 67.7 % 47-[address] [facility] Potassium [Moles/Vol] 3.8 mmol/L 3.5-5.1 [facility] Sodium [Moles/Vol] 132 mmol/L 136-145 [facility] WBC (Bld) [#/Vol] 11.3 10*3/uL 4.4-11.0 [facility] Blood erythrocytes count (nu mber/volume)Ordered By: Dr. Young on 02-05-2023 RBC (Bld) [#/Vol] 4.17 10*6/uL 4.2-5.4 [facility] Blood hemoglobin measurement (mass/volume)Ordered By: Dr. Young on 02-05-2023 Hemoglobin (Bld) [Mass/Vol] 9.7 g/dL 12.0-15.[address] [facility] Blood lymphocytes/100 leukoc ytesOrdered By: Dr. Young on 02-05-2023 Lymphocytes/100 WBC (Bld) 23.7 % 19-[address] [facility] Blood monocytes/100 leukocyt esOrdered By: Dr. Young on 02-05-2023 Monocytes/100 WBC (Bld) 6.3 % 0-10 [facility] Blood platelet mean volumeOr dered By: Dr. Young on 02-05-2023 Platelet mean volume (Bld) [Entitic vol] 8.9 fL 6.2-12.[address] [facility] Determination of erythrocyte mean corpuscular volume (MCV)Ordered By: Dr. Young on 02-05-2023 MCV (RBC) [Entitic vol] 77.0 fL 81-99 [facility] Hematocrit Auto (Bld) [Volum e fraction]Ordered By: Dr. Young on 02-05-2023 Hematocrit (Bld) [Volume fraction] 32.1 % 37-[address] [facility] Laboratory - Chemistry and C hemistry - challengeOrdered By: Dr. Young on 02-05-2023 CO2 [Moles/Vol] 25.0 mmol/L 21.0-32.[address] [facility] T4 [Mass/Vol] 7.8 ug/dL 4.8-13.[address] [facility] Urea nitrogen/Creatinine [Mass ratio] 8.8 mg/mg 10-[address] [facility] Laboratory - Hematology and Cell countsOrdered By: Dr. Young on 02-05-2023 Erythrocyte distribution width (RBC) [Entitic vol] 48.0 fL 35.1-43.9 [facility] Erythrocyte distribution width (RBC) [Ratio] 17.2 % 11.6-14.[address] [facility] Immature granulocytes/100 WBC (Bld) 0.500 % 0.0-0.[address] [facility] Comment on above: IG% - Immature Granu locytes (promyelocytes, myelocytes and metamyelocytes) > 1% indicates that a LEFT SHIFT is Present. MCH (RBC) [Entitic mass] 23.3 pg 27.0-32.[address] [facility] Nucleated RBC/100 WBC (Bld) [Ratio] 0 % 0-[address] [facility] MCHC Auto (RBC) [Mass/Vol]Or dered By: Dr. Young on 02-05-2023 MCHC (RBC) [Mass/Vol] 30.2 g/dL 32-36 [facility] No Panel InformationOrdered By: Dr. Young on 02-05-2023 Estimated GFR (MDRD) Amer 70 mL/min >[address] [facility] Comment on above: GFR Calc Estimated GFR (MDRD) Non-Af Amer 58 mL/min >[address] [facility] Comment on above: Non- GFR Calc Thyroid Stimulating Hormone (TSH) 2.70 uIU/mL 0.358-3.[address] [facility] Platelets bldOrdered By: Dr. Young on 02-05-2023 Platelets (Bld) [#/Vol] 316 10*3/uL 150-[address] [facility] Serum or plasma calcium baldemar urement (mass/volume)Ordered By: Dr. Young on 02-05-2023 Calcium [Mass/Vol] 9.1 mg/dL 8.5-10.1 [facility] Serum or plasma creatinine m easurement (mass/volume)Ordered By: Dr. Young on 02-05-2023 Creatinine [Mass/Vol] 1.02 mg/dL 0.55-1.02 [facility] Comment on above: The validity of the calculated GFR & GFRAA in patients over 70 years has not been determined. Clinical correlation is essential. Serum or plasma urea nitroge n measurement (mass/volume)Ordered By: Dr. Young on 02-05-2023 Urea nitrogen [Mass/Vol] 9 mg/dL 7-[address] [facility] Thin prep Papanicolaou smear with manual screeningOrdered By: Dr. Young on 02-05-2023 Thin prep Papanicolaou smear with manual screening 10 5-[address] [facility] Absolute lymphocyte countOrd ered By: Dr. Sy on 01-11-2023 Lymphocytes Auto (Unsp spec) [#/Vol] 2.69 10*3/uL 0.83-4.[address] [facility] Basophil percentageOrdered B y: Dr. Sy on 01-11-2023 Basophils/100 WBC (Bld) 0.9 % 0-1 [facility] Bilirubin [Mass/Vol] 1.50 mg/dL 0.20-1.00 [facility] Comment on above: For patients on eltr ombopag therapy, use of Dimension [place] TBIL is not recommended. Chloride [Moles/Vol] 99 mmol/L 98-107 [facility] Eosinophils/100 WBC (Bld) 1.6 % 0-[address] [facility] Glucose [Mass/Vol] 168 mg/dL 74-106 [facility] Comment on above: Fasting Glucose resu lt greater than or equal to 126 mg/dL suggests DIABETES MELLITUS per A.D.A. criteria. Neutrophils (Bld) [#/Vol] 7.4 10*3/uL 2.0-7.[address] [facility] Neutrophils/100 WBC (Bld) 66.0 % 47-[address] [facility] Potassium [Moles/Vol] 3.6 mmol/L 3.5-5.1 [facility] Protein [Mass/Vol] 7.6 g/dL 6.4-8.2 [facility] Sodium [Moles/Vol] 133 mmol/L 136-145 [facility] WBC (Bld) [#/Vol] 11.2 10*3/uL 4.4-11.0 [facility] Blood erythrocytes count (nu mber/volume)Ordered By: Dr. Sy on 01-11-2023 RBC (Bld) [#/Vol] 4.37 10*6/uL 4.2-5.4 [facility] Blood hemoglobin measurement (mass/volume)Ordered By: Dr. Sy on 01-11-2023 Hemoglobin (Bld) [Mass/Vol] 10.4 g/dL 12.0-15.[address] [facility] Blood lymphocytes/100 leukoc ytesOrdered By: Dr. Sy on 01-11-2023 Lymphocytes/100 WBC (Bld) 24.0 % 19-[address] [facility] Blood monocytes/100 leukocyt esOrdered By: [address] Sy on 01-11-2023 Monocytes/100 WBC (Bld) 7.0 % 0-10 [facility] Blood platelet mean volumeOr dered By: Dr. Sy on 01-11-2023 Platelet mean volume (Bld) [Entitic vol] 9.5 fL 6.2-12.[address] [facility] Determination of erythrocyte mean corpuscular volume (MCV)Ordered By: Dr. Sy on 01-11-2023 MCV (RBC) [Entitic vol] 79.9 fL 81-99 [facility] Erythrocyte sedimentation ra teOrdered By: Dr. Sy on 01-11-2023 ESR (Bld) [Velocity] 46 mm/h 0-30 [facility] Hematocrit Auto (Bld) [Volum e fraction]Ordered By: Dr. Sy on 01-11-2023 Hematocrit (Bld) [Volume fraction] 34.9 % 37-[address] [facility] Laboratory - Chemistry and C hemistry - challengeOrdered By: Dr. Sy on 01-11-2023 ALP [Catalytic activity/Vol] 109 U/L 45-[address] [facility] ALT [Catalytic activity/Vol] 13 U/L 13-[address] [facility] CO2 [Moles/Vol] 27.0 mmol/L 21.0-32.[address] [facility] Globulin (S) [Mass/Vol] 4.2 g/dL 2.2-4.2 [facility] Urea nitrogen/Creatinine [Mass ratio] 13.3 mg/mg 10-[address] [facility] Laboratory - Hematology and Cell countsOrdered By: Dr. Sy on 01-11-2023 Erythrocyte distribution width (RBC) [Entitic vol] 49.7 fL 35.1-43.9 [facility] Erythrocyte distribution width (RBC) [Ratio] 17.4 % 11.6-14.[address] [facility] Immature granulocytes/100 WBC (Bld) 0.500 % 0.0-0.[address] [facility] Comment on above: IG% - Immature Granu locytes (promyelocytes, myelocytes and metamyelocytes) > 1% indicates that a LEFT SHIFT is Present. MCH (RBC) [Entitic mass] 23.8 pg 27.0-32.[address] [facility] Nucleated RBC/100 WBC (Bld) [Ratio] 0 % 0-[address] [facility] MCHC Auto (RBC) [Mass/Vol]Or dered By: Dr. Sy on 01-11-2023 MCHC (RBC) [Mass/Vol] 29.8 g/dL 32-36 [facility] No Panel InformationOrdered By: Dr. Sy on 01-11-2023 Estimated GFR (MDRD) Amer 67 mL/min >[address] [facility] Comment on above: GFR Calc Estimated GFR (MDRD) Non-Af Amer 56 mL/min >[address] [facility] Comment on above: Non- GFR Calc Troponin I High Sensitivity 12 pg/mL 3.0-54.[address] [facility] Comment on above: Please Note: [place] t Units and Gender Specific Reference Ranges. For more information see Policy Stat Procedure [place] High Sensitivity Troponin (TNIH) and attachments. Platelets bldOrdered By: Dr. Sy on 01-11-2023 Platelets (Bld) [#/Vol] 332 10*3/uL 150-[address] [facility] Serum or plasma C reactive p rotein measurement (mass/volume)Ordered By: Dr. Sy on 02-13-2023 CRP [Mass/Vol] 6.65 mg/L 0.0-3.[address] [facility] Comment on above: C-Reactive Protein ( CRP) provides useful information for thediagnosis, therapy and monitoring of inflammatory processesand associated diseases. For the evaluation of Relative Riskfor Cardiovascular Disease, a High Sensitivity CRP (HSCRP)should be ordered. Serum or plasma albumin baldemar urement (mass/volume)Ordered By: Dr. Sy on 01-11-2023 Albumin [Mass/Vol] 3.4 g/dL 3.2-5.0 [facility] Serum or plasma albumin/glob ulin mass ratioOrdered By: Dr. Sy on 01-11-2023 Albumin/Globulin [Mass ratio] 0.8 {ratio} 0.9-2.[address] [facility] Serum or plasma calcium baldemar urement (mass/volume)Ordered By: Dr. Sy on 01-11-2023 Calcium [Mass/Vol] 9.4 mg/dL 8.5-10.1 [facility] Serum or plasma creatinine m easurement (mass/volume)Ordered By: Dr. Sy on 01-11-2023 Creatinine [Mass/Vol] 1.05 mg/dL 0.55-1.02 [facility] Comment on above: The validity of the calculated GFR & GFRAA in patients over 70 years has not been determined. Clinical correlation is essential. Serum or plasma transthyreti n measurement (mass/volume)Ordered By: Dr. Sy on 01-11-2023 Prealbumin [Mass/Vol] 18.8 mg/dL 20.0-40.0 [facility] Serum or plasma urea nitroge n measurement (mass/volume)Ordered By: Dr. Sy on 01-11-2023 Urea nitrogen [Mass/Vol] 14 mg/dL 7-[address] [facility] Thin prep Papanicolaou smear with manual screeningOrdered By: Dr. Sy on 01-11-2023 Thin prep Papanicolaou smear with manual screening 12 U/L 15-[address] [facility] Thin prep Papanicolaou smear with manual screening 7 5-[address] [facility] No Panel InformationOrdered By: Charlie Corcoran on 11-03-2022 Giardia Antigen (FAITH) [facility] Ova and parasitesOrdered By: Charlie Corcoran on 11-03-2022 Ova and parasites identified LM Nom (Unsp spec) [facility] No Panel InformationOrdered By: Charlie Corcoran on 10-29-2022 Stool Calprotectin 39 ug/g 0-120 [facility] Comment on above: Concentration Interp retation Follow-Up<16 - 50 ug/g Normal None>50 -120 ug/g Borderline Re-evaluate in 4-6 weeks >120 ug/g Abnormal Repeat as clinically indicatedPerformed at: [employer] [id number] Director: Jose Le PhD, Phone: [phone] at: [facility] [address] [id number] Director: Dotty Kerns MD, Phone: [phone] Stool Neutral Fats Normal . [facility] Comment on above: Normal (<60 Droplets /HPF) Stool Pancreatic Elastase 305 >[address] [facility] Comment on above: Result Units: ug [address]g Severe Pancreatic Insufficiency: <100 Moderate Pancreatic Insufficiency: 100 - 200 Normal: >200Performed at: [employer] [id number] Director: Dotty Kerns MD, Phone: [phone] Qualitative fecal fat or lip idsOrdered By: Charlie Corcoran on 10-29-2022 Fat Ql (Stl) Increased . [facility] Comment on above: Normal (<100 Droplet s/HPF) Absolute lymphocyte countOrd ered By: Charlie Corcoran on 10-20-2022 Lymphocytes Auto (Unsp spec) [#/Vol] 2.43 10*3/uL 0.83-4.[address] [facility] Albumin Elph [Mass/Vol]Order ed By: Charlie Corcoran on 10-20-2022 Albumin [Mass/Vol] 3.4 g/dL 2.9-4.4 [facility] Alternaria alternata IgE ser umOrdered By: Charlie Corcoran on 10-20-2022 A. alternata IgE Qn (S) <0.10 kU/L Class 0 [facility] Atypical perinuclear antineu trophil cytoplasmic antibodies measurementOrdered By: Charlie Corcoran on 10-20-2022 Neutrophil cytoplasmic Ab.perinuclear.atypical IF (S) [Titer] 1:160 titer Neg:<1:[address] [facility] Comment on above: The atypical pANCA p attern has been observed in asignificant percentage of patients with ulcerative colitis,primary sclerosing cholangitis and autoimmune hepatitis.Performed at: - [facility] [address] [id number] Director: Jose Le PhD, Phone: [phone] at: - [facility] [id number] Director: Dotty Kerns MD, Phone: [phone] Basophil percentageOrdered B y: Casi Verma on 10-20-2022 Bilirubin [Mass/Vol] 0.90 mg/dL 0.20-1.00 [facility] Comment on above: For patients on eltr ombopag therapy, use of Dimension [place] TBIL is not recommended. Cholesterol [Mass/Vol] 196 mg/dL <200 [facility] Comment on above: <200 mg/dL Desirable 200-240 mg/dL Borderline >240 mg/dL High Risk Protein [Mass/Vol] 8.2 g/dL 6.4-8.2 [facility] Triglyceride [Mass/Vol] 148 mg/dL <199 [facility] Comment on above: The drugs N-Acetylcy steine and Metamizole may falsely depress this assay.Serum Triglycerides Reference Interval Normal <150 mg/dL Borderline high 150 - 199 mg/dL High 200 - 499 mg/dL Very High > or = 500 mg/dL Basophil percentageOrdered B y: Charlie Corcoran on 10-20-2022 Amylase [Catalytic activity/Vol] 63 U/L 25-[address] [facility] Basophil percentage < 0.2 AI 0.0-0.9 [facility] Basophils/100 WBC (Bld) 1.5 % 0-1 [facility] Chloride [Moles/Vol] 100 mmol/L 98-107 [facility] Eosinophils/100 WBC (Bld) 2.1 % 0-[address] [facility] Glucose [Mass/Vol] 166 mg/dL 74-106 [facility] Comment on above: Fasting Glucose resu lt greater than or equal to 126 mg/dL suggests DIABETES MELLITUS per A.D.A. criteria. Neutrophils (Bld) [#/Vol] 4.0 10*3/uL 2.0-7.[address] [facility] Neutrophils/100 WBC (Bld) 56.1 % 47-[address] [facility] Potassium [Moles/Vol] 4.1 mmol/L 3.5-5.1 [facility] Sodium [Moles/Vol] 135 mmol/L 136-145 [facility] WBC (Bld) [#/Vol] 7.2 10*3/uL 4.4-11.0 [facility] Blood erythrocytes count (nu mber/volume)Ordered By: Charlie Corcoran on 10-20-2022 RBC (Bld) [#/Vol] 4.57 10*6/uL 4.2-5.4 [facility] Blood hemoglobin measurement (mass/volume)Ordered By: Charlie Corcoran on 10-20-2022 Hemoglobin (Bld) [Mass/Vol] 12.0 g/dL 12.0-15.[address] [facility] Blood lymphocytes/100 leukoc ytesOrdered By: Charlie Corcoran on 10-20-2022 Lymphocytes/100 WBC (Bld) 34.0 % 19-[address] [facility] Blood monocytes/100 leukocyt esOrdered By: Charlie Corcoran on 10-20-2022 Monocytes/100 WBC (Bld) 5.9 % 0-10 [facility] Blood platelet mean volumeOr dered By: Charlie Corcoran on 10-20-2022 Platelet mean volume (Bld) [Entitic vol] 8.9 fL 6.2-12.[address] [facility] Chocolate RASTOrdered By: Ra dexter Corcoran on 10-20-2022 Chocolate IgE Qn (S) <0.10 kU/L Class 0 [facility] Comment on above: Performed at: - [facility] [address] [id number] Director: Jose Le PhD, Phone: [phone] at: [facility] [id number] Director: Dotty Kerns MD, Phone: [phone] Determination of erythrocyte mean corpuscular volume (MCV)Ordered By: Charlie Corcoran on 10-20-2022 MCV (RBC) [Entitic vol] 85.3 fL 81-99 [facility] Direct bilirubinOrdered By: Casi Verma on 10-20-2022 Bilirubin.direct [Mass/Vol] 0.23 mg/dL 0.00-0.[address] [facility] Erythrocyte sedimentation ra teOrdered By: Charlie Corcoran on 10-20-2022 ESR (Bld) [Velocity] 36 mm/h 0-30 [facility] Hematocrit Auto (Bld) [Volum e fraction]Ordered By: Charlie Corcoran on 10-20-2022 Hematocrit (Bld) [Volume fraction] 39.0 % 37-[address] [facility] Interpretation of serum or p lasma protein pattern by immunofixation (narrative resultOrdered By: Charlie Corcoran on 10-20-2022 Protein Fractions Immunofixation Fritz [Interp] See comment [facility] Comment on above: Result: Not Observed Laboratory - Chemistry and C hemistry - challengeOrdered By: Casi Verma on 10-20-2022 ALP [Catalytic activity/Vol] 124 U/L 45-[address] [facility] ALT [Catalytic activity/Vol] 20 U/L 13-[address] [facility] Globulin (S) [Mass/Vol] 4.6 g/dL 2.2-4.2 [facility] Laboratory - Chemistry and C hemistry - challengeOrdered By: Charlie Corcoran on 10-20-2022 CO2 [Moles/Vol] 30.0 mmol/L 21.0-32.[address] [facility] Lipase [Catalytic activity/Vol] 185 U/L 73-[address] [facility] Urea nitrogen/Creatinine [Mass ratio] 7.3 mg/mg 10-[address] [facility] Laboratory - Hematology and Cell countsOrdered By: Charlie Corcoran on 10-20-2022 Erythrocyte distribution width (RBC) [Entitic vol] 49.1 fL 35.1-43.9 [facility] Erythrocyte distribution width (RBC) [Ratio] 15.9 % 11.6-14.[address] [facility] Immature granulocytes/100 WBC (Bld) 0.400 % 0.0-0.[address] [facility] Comment on above: IG% - Immature Granu locytes (promyelocytes, myelocytes and metamyelocytes) > 1% indicates that a LEFT SHIFT is Present. MCH (RBC) [Entitic mass] 26.3 pg 27.0-32.[address] [facility] Nucleated RBC/100 WBC (Bld) [Ratio] 0 % 0-[address] [facility] MCHC Auto (RBC) [Mass/Vol]Or dered By: Charlie Corcoran on 10-20-2022 MCHC (RBC) [Mass/Vol] 30.8 g/dL 32-36 [facility] Macrocytes detectionOrdered By: Charlie Corcoran on 10-20-2022 Macrocytes Ql (Bld) 7.2 [facility] No Panel InformationOrdered By: Charlie Corcoran on 10-20-2022 Addendum Document Comment . [facility] Comment on above: Protein electrophore sis scan will follow via computer,mail, or parliamentary archivist delivery. Aspergillus fumigatus Allergen <0.10 kU/L Class [address] [facility] Cat Hair Allergen <0.10 kU/L Class [address] [facility] Centromere B Antibody <0.2 AI 0.0-0.9 [facility] Common Ragweed (Short) Allergen <0.10 kU/L Class [address] [facility] Endomysial IgA Antibody Negative Negative [facility] Japanese Plantain Allergen (RAST) <0.10 kU/L Class [address] [facility] Estimated GFR (MDRD) Amer 65 mL/min >[address] [facility] Comment on above: GFR Calc Estimated GFR (MDRD) Non-Af Amer 53 mL/min >[address] [facility] Comment on above: Non- GFR Calc Immunoglobulin E < 2 IU/mL 6-[address] [facility] Maple ([place]) Allergen IgE Ab <0.10 kU/L Class [address] [facility] Miscellaneous Test See comment [facility] Comment on above: TEST RESULT LIMITSIB D Expanded Panel Esme 14 units 0-50 Negative <45 Equivocal 45 - 50 Positive >50 ACCA 10 units 0-90 Negative <80 Equivocal 80 - 90 Positive >90 ALCA 20 units 0-60 Negative <55 Equivocal 55 - 60 Positive >60 AMCA 32 units 0-100 Negative < 90 Equivocal 90 - 100 Positive >100 This test was developed and its performance characteristics determined by [facility]. It has not been cleared or approved by the Food and Drug Administration. The FDA has determined that such clearance or approval is not necessary.Atypical pANCA Positive Abnormal NegativeComments Abnormal Suggestive of Ulcerative Colitis ____ TESTING PERFORMED AT [facility] [facility] [facility]. ORIGINAL REPORT ON FILE IN LAB CONTAINS ADDITIONAL TEST SITE INFORMATION. Mouse Urine Allergen IgE Antibody <0.10 kU/L Class [address] [facility] Comment on above: Performed at: [address] [id number] Director: Dotty Kerns MD, Phone: [phone] RAST Comment Comment . [facility] Comment on above: Levels of Specific I gE Class Description of Class ----- < 0.10 0 Negative 0.10 - 0.31 0/I Equivocal/Low 0.32 - 0.55 I Low 0.56 - 1.40 II Moderate 1.41 - 3.90 III High 3.91 - 19.00 IV Very High 19.01 - 100.00 V Very High >100.00 Very High APIARIST Antibody <0.2 AI 0.0-0.[address] [facility] Seafood Group Allergens (RAST) Negative . [facility] Comment on above: Allergens in this mi x are: Blue mussel Fish [place] Shrimp Tuna [place] Tree Allergen <0.10 kU/L Class 0 [facility] Platelets bldOrdered By: Troy beltran Friend on 10-20-2022 Platelets (Bld) [#/Vol] 301 10*3/uL 150-[address] [facility] Rough pigweed specific IgE a ntibody assayOrdered By: Charlie Corcoran on 10-20-2022 Rough Pigweed IgE Qn (S) <0.10 kU/L Class [address] [facility] Serum Singaporean sycamore IgE antibody assay (units/volume)Ordered By: Charlie Corcoran on 10-20-2022 Singaporean Breeden IgE Qn (S) <0.10 kU/L Class [address] [facility] Serum Aspergillus fumigatus IgE antibody assay (units/volume)Ordered By: Charlie Corcoran on 10-20-2022 A. fumigatus IgE Qn (S) <0.10 kU/L Class 0 [facility] Serum Bermuda grass IgE anti body assay (units/volume)Ordered By: Charlie Corcoran on 10-20-2022 Bermuda grass IgE Qn (S) <0.10 kU/L Class [address] [facility] Serum Cladosporium herbarum IgE antibody assay (units/volume)Ordered By: Charlie Corcoran on 10-20-2022 C. herbarum IgE Qn (S) <0.10 kU/L Class 0 [facility] Serum DNA double strand anti body assay (units/volume)Ordered By: Charlie Corcoran on 10-20-2022 DNA double strand Ab Qn (S) 1 [IU]/mL 0-[address] [facility] Comment on above: Negative <5 Equivoca l 5 - 9 Positive >9 Serum Dermatophagoides farin ae specific IgE antibody assay (units/volume)Ordered By: Charlie Corcoran on 10-20-2022 Singaporean house dust mite IgE Qn (S) <0.10 kU/L Class [address] [facility] Serum house dust mi te IgE antibody assay (units/volume)Ordered By: Charlie Corcoran on 10-20-2022 house dust mite IgE Qn (S) <0.10 kU/L Class [address] [facility] Serum IgA measurement (units /volume)on 10-20-2022 IgA Qn (S) 206 mg/dL 87-[address] [facility] Work Phone: Comment on above: Performed at: [facility] [place], [place] [id number] Director: Jose Le PhD, Phone: [phone] Serum Dolly-1 antibody assay (u nits/volume)Ordered By: Charlie Corcoran on 10-20-2022 Dolly-1 extractable nuclear Ab Qn (S) <0.2 AI 0.0-0.[address] [facility] Serum Lex grass IgE anti body assay (units/volume)Ordered By: Charlie Corcoran on 10-20-2022 Lex grass IgE Qn (S) <0.10 kU/L Class [address] [facility] Serum [place] blue grass Ig E antibody assay (units/volume)Ordered By: Charlie Corcoran on 10-20-2022 [place] blue grass IgE Qn (S) <0.10 kU/L Class [address] [facility] Serum Mucor racemosus IgE an tibody assay (units/volume)Ordered By: Charlie Corcoran on 10-20-2022 Mucor racemosus IgE Qn (S) <0.10 kU/L Class [address] [facility] Serum Penicillium notatum Ig E antibody assay (units/volume)Ordered By: Charlie Corcoran on 10-20-2022 P. notatum IgE Qn (S) <0.10 kU/L Class 0 [facility] Serum Periplaneta americana IgE antibody assay (units/volume)Ordered By: Charlie Corcoran on 10-20-2022 [place]an Cockroach IgE Qn (S) <0.10 kU/L Class [address] [facility] Serum Peruvian thistle specif ic IgE antibody assayOrdered By: Charlie Corcoran on 10-20-2022 Saltwort IgE Qn (S) <0.10 kU/L Class 0 [facility] Serum Scl-70 extractable nuc lear antibody assay (units/volume)Ordered By: Charlie Corcoran on 10-20-2022 SCL-70 extractable nuclear Ab Qn (S) <0.2 AI 0.0-0.[address] [facility] Serum Hernandez extractable nucl ear antibody detectionOrdered By: Charlie Corcoran on 10-20-2022 Hernandez extractable nuclear Ab Ql (S) <0.2 AI 0.0-0.[address] [facility] Serum [id number] measu rement by electrophoresisOrdered By: Charlie Corcoran on 10-20-2022 Alpha 1 globulin Elph [Mass/Vol] 0.3 g/dL 0.0-0.[address] [facility] Alpha 1 globulin Elph [Mass/Vol] 1.1 g/dL 0.4-1.[address] [facility] Serum bahia grass IgE antibo dy assay (units/volume)Ordered By: Charlie Corcoran on 10-20-2022 Bahia grass IgE Qn (S) <0.10 kU/L Class 0 [facility] Serum beef IgE antibody assa y (units/volume)Ordered By: Charlie Corcoran on 10-20-2022 Beef IgE Qn (S) <0.10 kU/L Class [address] [facility] Serum birch specific IgE ant ibody assayOrdered By: Charlie Corcoran on 10-20-2022 Silver Birch IgE Qn (S) <0.10 kU/L Class 0 [facility] Serum black walnut IgE antib tina assay (units/volume)Ordered By: Charlie Corcoran on 10-20-2022 [place] IgE Qn (S) <0.10 kU/L Class 0 [facility] Serum cat dander IgE antibod y assay (units/volume)Ordered By: Charlie Corcoran on 10-20-2022 Cat dander IgE Qn (S) <0.10 kU/L Class 0 [facility] Serum classic neutrophil cyt oplasmic antibody assay (units/volume)Ordered By: Charlie Corcoran on 10-20-2022 Neutrophil cytoplasmic Ab.classic Qn (S) <1:20 titer Neg:<1:[address] [facility] Serum corn IgE antibody assa y (units/volume)Ordered By: Charlie Corcoran on 10-20-2022 [place] IgE Qn (S) <0.10 kU/L Class [address] [facility] Serum cottonwood IgE antibod y assay (units/volume)Ordered By: Charlie Corcoran on 10-20-2022 [place] IgE Qn (S) <0.10 kU/L Class 0 [facility] Serum cow milk IgE antibody assay (units/volume)Ordered By: Charlie Corcoran on 10-20-2022 Cow milk IgE Qn (S) <0.10 kU/L Class 0 [facility] er [facility] Serum dog epithelium IgE ant ibody assay (units/volume)Ordered By: Charlie Corcoran on 10-20-2022 Dog epithelium IgE Qn (S) <0.10 kU/L Class [address] [facility] Serum hazelnut pollen IgE an tibody assay (units/volume)Ordered By: Charlie Corcoran on 10-20-2022 Hazelnut Pollen IgE Qn (S) <0.10 kU/L Class [address] [facility] Serum mountain cedar specifi c IgE antibody assayOrdered By: Charlie Corcoran on 10-20-2022 Mountain Juniper IgE Qn (S) <0.10 kU/L Class [address] [facility] Serum mugwort IgE antibody a ssay (units/volume)Ordered By: Charlie Corcoran on 10-20-2022 Mugwort IgE Qn (S) <0.10 kU/L Class 0 [facility] Serum nettle IgE antibody as say (units/volume)Ordered By: Charlie Corcoran on 10-20-2022 Nettle IgE Qn (S) <0.10 kU/L Class [address] [facility] Serum or plasma C reactive p rotein measurement (mass/volume)Ordered By: Charlie Corcoran on 10-20-2022 CRP [Mass/Vol] 24.80 mg/L 0.0-3.[address] [facility] Comment on above: C-Reactive Protein ( CRP) provides useful information for thediagnosis, therapy and monitoring of inflammatory processesand associated diseases. For the evaluation of Relative Riskfor Cardiovascular Disease, a High Sensitivity CRP (HSCRP)should be ordered. Serum or plasma IgA measurem ent (mass/volume)Ordered By: Charlie Corcoran on 10-20-2022 IgA [Mass/Vol] 198 mg/dL 87-[address] [facility] Serum or plasma IgG measurem ent (mass/volume)Ordered By: Charlie Corcoran on 10-20-2022 IgG [Mass/Vol] 1021 mg/dL [phone] [facility] Serum or plasma IgM measurem ent (mass/volume)Ordered By: Charlie Corcoran on 10-20-2022 IgM [Mass/Vol] 44 mg/dL 26-[address] [facility] Serum or plasma albumin baldemar urement (mass/volume)Ordered By: Casi Verma on 10-20-2022 Albumin [Mass/Vol] 3.6 g/dL 3.2-5.0 [facility] Serum or plasma albumin/glob ulin mass ratioOrdered By: Charlie Corcoran on 10-20-2022 Albumin/Globulin [Mass ratio] 0.8 {ratio} 0.9-2.[address] [facility] Serum or plasma beta globuli n measurement by electrophoresis (mass/volume)Ordered By: Charlie Corcoran on 10-20-2022 Beta globulin Elph [Mass/Vol] 1.0 g/dL 0.7-1.[address] [facility] Serum or plasma calcium baldemar urement (mass/volume)Ordered By: Charlie Corcoran on 10-20-2022 Calcium [Mass/Vol] 9.5 mg/dL 8.5-10.1 [facility] Serum or plasma cholesterol in HDL measurement (mass/volume)Ordered By: Cais Verma on 10-20-2022 Cholesterol in HDL [Mass/Vol] 40 mg/dL >[address] [facility] Comment on above: The drugs N-Acetylcy steine and Metamizole may falsely depress this assay. Reference Range HDL <40 mg/dL Low HDL Cholesterol HDL >or= 60 mg/dL High HDL Cholesterol Serum or plasma cholesterol in VLDL measurement (mass/volume)Ordered By: Casi Verma on 10-20-2022 Cholesterol in VLDL [Mass/Vol] 30 mg/dL 5-[address] [facility] Serum or plasma creatinine m easurement (mass/volume)Ordered By: Charlie Corcoran on 10-20-2022 Creatinine [Mass/Vol] 1.09 mg/dL 0.55-1.02 [facility] Comment on above: The validity of the calculated GFR & GFRAA in patients over 70 years has not been determined. Clinical correlation is essential. Serum or plasma gamma globul in measurement by electrophoresis (mass/volume)Ordered By: Charlie Corcoran on 10-20-2022 Gamma globulin Elph [Mass/Vol] 1.0 g/dL 0.4-1.[address] [facility] Serum or plasma immunoelectr ophoresis interpretation (nominal result)Ordered By: Charlie Corcoran on 10-20-2022 Interpretation IEP [Interp] Comment . [facility] Comment on above: No monoclonality det ected. Serum or plasma low density lipoprotein (LDL) cholesterol measurement (mass/volume)Ordered By: Casi Verma on 10-20-2022 Cholesterol in LDL [Mass/Vol] 126 mg/dL 0-[address] [facility] Serum or plasma urea nitroge n measurement (mass/volume)Ordered By: Charlie Corcoran on 10-20-2022 Urea nitrogen [Mass/Vol] 8 mg/dL 7-[address] [facility] Serum peanut IgE antibody as say (units/volume)Ordered By: Charlie Corcoran on 10-20-2022 Peanut IgE Qn (S) <0.10 kU/L Class [address] [facility] Serum pecan or hickory nut I gE antibody assay (units/volume)Ordered By: Charlie Corcoran on 10-20-2022 Pecan or Grainger Nut IgE Qn (S) <0.10 kU/L Class [address] [facility] Serum perinuclear neutrophil cytoplasmic antibody titer by immunofluorescenceOrdered By: Charlie Corcoran on 10-20-2022 Neutrophil cytoplasmic Ab.perinuclear IF (S) [Titer] <1:20 titer Neg:<1:[address] [facility] Comment on above: The presence of posi tive fluorescence exhibiting P-ANCA orC-ANCA patterns alone is not specific for the diagnosis ofWegener's Granulomatosis (WG) or microscopic polyangiitis.Decisions about treatment should not be based solely onANCA IFA results. The [employer] ANCA [employer] Consensusrecommends follow up testing of positive sera with both AR-3 and MPO-ANCA enzyme immunoassays. As many as 5% serumsamples are positive only by EIA. Ref. AM J Clin [id number];111:507-513. Serum pork IgE antibody assa y (units/volume)Ordered By: Charlie Corcoran on 10-20-2022 Pork IgE Qn (S) <0.10 kU/L Class [address] [facility] Serum sheep sorrel IgE antib tina assay (units/volume)Ordered By: Charlie Corcoran on 10-20-2022 Sheep [place] IgE Qn (S) <0.10 kU/L Class 0 [facility] Serum soybean IgE antibody a ssay (units/volume)Ordered By: Charlie Corcoran on 10-20-2022 Soybean IgE Qn (S) <0.10 kU/L Class 0 [facility] Serum sweet gum IgE radioall ergosorbent test (RAST) class determinationOrdered By: Charlie Corcoran on 10-20-2022 Sweet gum IgE RAST class (S) <0.10 kU/L Class [address] [facility] Serum doyle IgE antibody a ssay (units/volume)Ordered By: Charlie Corcoran on 10-20-2022 [place] IgE Qn (S) <0.10 kU/L Class 0 [facility] Serum tissue transglutaminas e IgA antibody assay (units/volume)Ordered By: Charlie Corcoran on 10-20-2022 tTG IgA Qn (S) <2 U/mL 0-[address] [facility] Comment on above: Negative 0 - 3 Weak Positive 4 - 10 Positive >10 Tissue Transglutaminase (tTG) has been identified as the endomysial antigen. Studies have demonstr- ated that endomysial IgA antibodies have over 99% specificity for gluten sensitive enteropathy. Serum wheat IgE antibody ass ay (units/volume)Ordered By: Charlie Corcoran on 10-20-2022 Wheat IgE Qn (S) <0.10 kU/L Class [address] [facility] Serum white sharlene IgE antibody assay (units/volume)Ordered By: Charlie Corcoran on 10-20-2022 White Sharlene IgE Qn (S) <0.10 kU/L Class 0 [facility] Serum white elm IgE antibody assay (units/volume)Ordered By: Charlie Corcoran on 10-20-2022 White Elm IgE Qn (S) <0.10 kU/L Class 0 [facility] Serum white hickory IgE anti body assay (units/volume)Ordered By: Charlie Corcoran on 10-20-2022 White Grainger IgE Qn (S) <0.10 kU/L Class [address] [facility] Serum white mulberry IgE ant ibody assay (units/volume)Ordered By: Charlie Corcoran on 10-20-2022 White mulberry IgE Qn (S) <0.10 kU/L Class [address] [facility] Serum whole egg IgE antibody assay (units/volume)Ordered By: Charlie Corcoran on 10-20-2022 Whole Egg IgE Qn (S) <0.10 kU/L Class 0 [facility] Stemphylium herbarum IgE ser umOrdered By: Charlie Corcoran on 10-20-2022 Stemphylium botryosum IgE Qn (S) <0.10 kU/L Class [address] [facility] Thin prep Papanicolaou smear with manual screeningOrdered By: Casi Verma on 10-20-2022 Thin prep Papanicolaou smear with manual screening 16 U/L 15-[address] [facility] Thin prep Papanicolaou smear with manual screeningOrdered By: Charlie Corcoran on 10-20-2022 Thin prep Papanicolaou smear with manual screening 5 5-[address] [facility] Thin prep Papanicolaou smear with manual screening 168 U/L 84-[address] [facility] Thin prep Papanicolaou smear with manual screening 1.1 0.7-1.[address] [facility] Total protein bloodOrdered B y: Charlie Corcoran on 10-20-2022 Protein [Mass/Vol] 6.8 g/dL 6.0-8.5 [facility] Basophil percentageOrdered B y: Casi Verma on 10-13-2022 Bilirubin [Mass/Vol] 0.40 mg/dL 0.20-1.00 [facility] Comment on above: For patients on eltr ombopag therapy, use of Dimension [place] TBIL is not recommended. Cholesterol [Mass/Vol] 191 mg/dL <200 [facility] Comment on above: <200 mg/dL Desirable 200-240 mg/dL Borderline >240 mg/dL High Risk Protein [Mass/Vol] 7.7 g/dL 6.4-8.2 [facility] Triglyceride [Mass/Vol] 160 mg/dL <199 [facility] Comment on above: The drugs N-Acetylcy steine and Metamizole may falsely depress this assay.Serum Triglycerides Reference Interval Normal <150 mg/dL Borderline high 150 - 199 mg/dL High 200 - 499 mg/dL Very High > or = 500 mg/dL Direct bilirubinOrdered By: Casi Verma on 10-13-2022 Bilirubin.direct [Mass/Vol] 0.12 mg/dL 0.00-0.[address] [facility] Laboratory - Chemistry and C hemistry - challengeOrdered By: Casi Verma on 10-13-2022 ALP [Catalytic activity/Vol] 114 U/L 45-[address] [facility] ALT [Catalytic activity/Vol] 21 U/L 13-[address] [facility] Globulin (S) [Mass/Vol] 4.2 g/dL 2.2-4.2 [facility] Serum or plasma albumin baldemar urement (mass/volume)Ordered By: Casi Verma on 10-13-2022 Albumin [Mass/Vol] 3.5 g/dL 3.2-5.0 [facility] Serum or plasma cholesterol in HDL measurement (mass/volume)Ordered By: Casi Verma on 10-13-2022 Cholesterol in HDL [Mass/Vol] 46 mg/dL >[address] [facility] Comment on above: The drugs N-Acetylcy steine and Metamizole may falsely depress this assay. Reference Range HDL <40 mg/dL Low HDL Cholesterol HDL >or= 60 mg/dL High HDL Cholesterol Serum or plasma cholesterol in VLDL measurement (mass/volume)Ordered By: Casi Verma on 10-13-2022 Cholesterol in VLDL [Mass/Vol] 32 mg/dL 5-[address] [facility] Serum or plasma low density lipoprotein (LDL) cholesterol measurement (mass/volume)Ordered By: Casi Verma on 10-13-2022 Cholesterol in LDL [Mass/Vol] 113 mg/dL 0-[address] [facility] Thin prep Papanicolaou smear with manual screeningOrdered By: Casi Verma on 10-13-2022 Thin prep Papanicolaou smear with manual screening 20 U/L 15-[address] [facility] Absolute lymphocyte countOrd ered By: Dr. Sy on 10-05-2022 Lymphocytes Auto (Unsp spec) [#/Vol] 2.42 10*3/uL 0.83-4.[address] [facility] Basophil percentageOrdered B y: Dr. Sy on 10-05-2022 Basophils/100 WBC (Bld) 1.0 % 0-1 [facility] Bilirubin [Mass/Vol] 0.60 mg/dL 0.20-1.00 [facility] Comment on above: For patients on eltr ombopag therapy, use of Dimension [place] TBIL is not recommended. Chloride [Moles/Vol] 98 mmol/L 98-107 [facility] Eosinophils/100 WBC (Bld) 2.2 % 0-[address] [facility] Glucose [Mass/Vol] 152 mg/dL 74-106 [facility] Comment on above: Fasting Glucose resu lt greater than or equal to 126 mg/dL suggests DIABETES MELLITUS per A.D.A. criteria. Neutrophils (Bld) [#/Vol] 3.9 10*3/uL 2.0-7.[address] [facility] Neutrophils/100 WBC (Bld) 55.4 % 47-[address] [facility] Potassium [Moles/Vol] 4.4 mmol/L 3.5-5.1 [facility] Protein [Mass/Vol] 7.7 g/dL 6.4-8.2 [facility] Sodium [Moles/Vol] 136 mmol/L 136-145 [facility] WBC (Bld) [#/Vol] 7.0 10*3/uL 4.4-11.0 [facility] Blood erythrocytes count (nu mber/volume)Ordered By: Dr. Sy on 10-05-2022 RBC (Bld) [#/Vol] 4.88 10*6/uL 4.2-5.4 [facility] Blood hemoglobin measurement (mass/volume)Ordered By: Dr. Sy on 10-05-2022 Hemoglobin (Bld) [Mass/Vol] 12.7 g/dL 12.0-15.[address] [facility] Blood lymphocytes/100 leukoc ytesOrdered By: Dr. Sy on 10-05-2022 Lymphocytes/100 WBC (Bld) 34.8 % 19-[address] [facility] Blood monocytes/100 leukocyt esOrdered By: Dr. Sy on 10-05-2022 Monocytes/100 WBC (Bld) 6.3 % 0-10 [facility] Blood platelet mean volumeOr dered By: Dr. Sy on 10-05-2022 Platelet mean volume (Bld) [Entitic vol] 9.4 fL 6.2-12.[address] [facility] Determination of erythrocyte mean corpuscular volume (MCV)Ordered By: Dr. Sy on 10-05-2022 MCV (RBC) [Entitic vol] 84.8 fL 81-99 [facility] Erythrocyte sedimentation ra teOrdered By: Dr. Sy on 10-05-2022 ESR (Bld) [Velocity] 26 mm/h 0-30 [facility] Hematocrit Auto (Bld) [Volum e fraction]Ordered By: Dr. Sy on 10-05-2022 Hematocrit (Bld) [Volume fraction] 41.4 % 37-[address] [facility] Laboratory - Chemistry and C hemistry - challengeOrdered By: Dr. Sy on 10-05-2022 ALP [Catalytic activity/Vol] 115 U/L 45-[address] [facility] ALT [Catalytic activity/Vol] 16 U/L 13-[address] [facility] CO2 [Moles/Vol] 29.0 mmol/L 21.0-32.[address] [facility] Globulin (S) [Mass/Vol] 4.1 g/dL 2.2-4.2 [facility] Magnesium [Mass/Vol] 2.4 mg/dL 1.6-2.6 [facility] Urea nitrogen/Creatinine [Mass ratio] 7.8 mg/mg 10-[address] [facility] Laboratory - Hematology and Cell countsOrdered By: Dr. Sy on 10-05-2022 Erythrocyte distribution width (RBC) [Entitic vol] 46.0 fL 35.1-43.9 [facility] Erythrocyte distribution width (RBC) [Ratio] 15.0 % 11.6-14.[address] [facility] Immature granulocytes/100 WBC (Bld) 0.300 % 0.0-0.[address] [facility] Comment on above: IG% - Immature Granu locytes (promyelocytes, myelocytes and metamyelocytes) > 1% indicates that a LEFT SHIFT is Present. MCH (RBC) [Entitic mass] 26.0 pg 27.0-32.[address] [facility] Nucleated RBC/100 WBC (Bld) [Ratio] 0 % 0-[address] [facility] MCHC Auto (RBC) [Mass/Vol]Or dered By: Dr. Sy on 10-05-2022 MCHC (RBC) [Mass/Vol] 30.7 g/dL 32-36 [facility] No Panel InformationOrdered By: Dr. Sy on 10-05-2022 Estimated GFR (MDRD) Amer 70 mL/min >[address] [facility] Comment on above: GFR Calc Estimated GFR (MDRD) Non-Af Amer 58 mL/min >[address] [facility] Comment on above: Non- GFR Calc Thyroid Stimulating Hormone (TSH) 1.38 uIU/mL 0.358-3.[address] [facility] Platelets bldOrdered By: Dr. Sy on 10-05-2022 Platelets (Bld) [#/Vol] 363 10*3/uL 150-[address] [facility] Serum or plasma albumin baldemar urement (mass/volume)Ordered By: Dr. Sy on 10-05-2022 Albumin [Mass/Vol] 3.6 g/dL 3.2-5.0 [facility] Serum or plasma albumin/glob ulin mass ratioOrdered By: Dr. Sy on 10-05-2022 Albumin/Globulin [Mass ratio] 0.9 {ratio} 0.9-2.[address] [facility] Serum or plasma calcium baldemar urement (mass/volume)Ordered By: Dr. Sy on 10-05-2022 Calcium [Mass/Vol] 9.3 mg/dL 8.5-10.1 [facility] Serum or plasma creatinine m easurement (mass/volume)Ordered By: Dr. Sy on 10-05-2022 Creatinine [Mass/Vol] 1.02 mg/dL 0.55-1.02 [facility] Comment on above: The validity of the calculated GFR & GFRAA in patients over 70 years has not been determined. Clinical correlation is essential. Serum or plasma urea nitroge n measurement (mass/volume)Ordered By: Dr. Sy on 10-05-2022 Urea nitrogen [Mass/Vol] 8 mg/dL 7-[address] [facility] Thin prep Papanicolaou smear with manual screeningOrdered By: Dr. Sy on 10-05-2022 Thin prep Papanicolaou smear with manual screening 16 U/L 15-[address] [facility] Thin prep Papanicolaou smear with manual screening 9 5-[address] [facility] Thin prep Papanicolaou smear with manual screening 5.8 mg/L NO RANGE EST. [facility] 24 hour urine alpha 2 globul in/total protein ratio by electrophoresis (mass fraction)on 07-08-2022 Alpha 2 globulin Elph (24H U) [Mass fraction] 15.3 % . [facility] Work Phone: 24 hour urine beta globulin/ total protein ratio by electrophoresis (mass fraction)on 07-08-2022 Beta globulin Elph (24H U) [Mass fraction] 25.6 % . [facility] Work Phone: 24 hour urine gamma globulin /total protein ratio by electrophoresis (mass fraction)on 07-08-2022 Gamma globulin Elph (24H U) [Mass fraction] 16.0 % . [facility] Work Phone: Erythrocyte sedimentation ra tom 07-08-2022 ESR (Bld) [Velocity] 48 mm/h 0-30 [facility] Work Phone: Laboratory - Chemistry and C hemistry - challengeon 07-08-2022 Sodium (U) [Moles/Vol] 14 mmol/L Not Establ. [facility] Work Phone: Albumin [Mass/Vol] 3.5 g/dL 2.9-4.4 [facility] Work Phone: No Panel Informationon 07-08 Urine Immunofixation PEP Note Comment . [facility] Work Phone: Comment on above: Protein electrophore sis scan will follow via computer,mail, or parliamentary archivist delivery.Performed at: [address] [id number] Director: Jose Le PhD, Phone: [phone] Addendum Document Comment . [facility] Work Phone: Comment on above: The SPE pattern demo nstrates elevation of regionscontaining acute phase proteins suggesting anacute/subacute inflammatory response. Some conditions inwhich this pattern has been observed include: bacterial,viral or parasitic infection; mechanical, physical orchemical trauma; and cardiac failure. The gamma globulinregion is unremarkable and evidence of monoclonal proteinis not apparent.Performed at: - [address] [id number] Director: Jose Le PhD, Phone: [phone] [id number] 0.3 g/dL 0.0-0.[address] [facility] Work Phone: Tyyle-2-[id number] 1.2 g/dL 0.4-1.[address] [facility] Work Phone: [phone] Gamma Globulins 0.9 g/dL 0.4-1.[address] [facility] Work Phone: [phone] Ova and parasites identified LM Nom (Unsp spec)on 07-08-2022 Ova and Parasites [id number] [facility] Work Phone: Protein Fractions Elph [Inte rp]on 07-08-2022 Protein Fractions [Interp] Comment . [facility] Work Phone: Comment on above: Protein electrophore sis scan will follow via computer,mail, or parliamentary archivist delivery. Serum albumin to globulin ra abel by protein electrophoresison 07-08-2022 Albumin/Globulin Elph [Mass ratio] 1.0 0.7-1.[address] [facility] Work Phone: Serum globulin measurement ( mass/volume)on 07-08-2022 Globulin (S) [Mass/Vol] 3.4 g/dL 2.2-3.9 [facility] Work Phone: Serum or plasma beta globuli n measurement by electrophoresis (mass/volume)on 07-08-2022 Beta globulin Elph [Mass/Vol] 1.0 g/dL 0.7-1.[address] [facility] Work Phone: Thin prep Papanicolaou smear with manual screeningon 07-08-2022 Thin prep Papanicolaou smear with manual screening 291 mOsm/KG 280-[address] [facility] Work Phone: Thin prep Papanicolaou smear with manual screening See comment [facility] Work Phone: Comment on above: NOT OBSERVED Total protein bloodon 2021 Protein [Mass/Vol] 6.9 g/dL 6.0-8.5 [facility] Work Phone: Urine albumin/total protein mass ratio by electrophoresison 07-08-2022 Albumin Elph (U) [Mass fraction] 41.4 % . [facility] Work Phone: [phone] Urine alpha 1 globulin/total protein ratio by electrophoresis (mass fraction)on 07-08-2022 Alpha 1 globulin Elph (U) [Mass fraction] 1.8 % . [facility] Work Phone: [phone] Urine monoclonal protein/tot al protein mass ratio by electrophoresison 07-08-2022 Protein.monoclonal Elph (U) [Mass fraction] See comment [facility] Work Phone: Comment on above: Result: Not Observed Urine protein measurement (m ass/volume)on 07-08-2022 Protein (U) [Mass/Vol] 44.8 mg/dL Not Estab. [facility] Work Phone: Absolute lymphocyte counton 07-07-2022 Lymphocytes Auto (Unsp spec) [#/Vol] 3.01 10*3/uL 0.83-4.[address] [facility] Work Phone: Basophil percentageon 2021 Basophils/100 WBC (Bld) 0.8 % 0-1 [facility] Work Phone: [phone] Bilirubin [Mass/Vol] 1.20 mg/dL 0.20-1.00 [facility] Work Phone: [phone] Comment on above: For patients on eltr ombopag therapy, use of Dimension [place] TBIL is not recommended. Chloride [Moles/Vol] 97 mmol/L 98-107 [facility] Work Phone: [phone] Eosinophils/100 WBC (Bld) 0.9 % 0-[address] [facility] Work Phone: [phone] Glucose [Mass/Vol] 172 mg/dL 74-106 [facility] Work Phone: Comment on above: Fasting Glucose resu lt greater than or equal to 126 mg/dL suggests DIABETES MELLITUS per A.D.A. criteria. Neutrophils (Bld) [#/Vol] 8.6 10*3/uL 2.0-7.[address] [facility] Work Phone: Neutrophils/100 WBC (Bld) 67.5 % 47-[address] [facility] Work Phone: Potassium [Moles/Vol] 3.9 mmol/L 3.5-5.1 [facility] Work Phone: Protein [Mass/Vol] 8.2 g/dL 6.4-8.2 [facility] Work Phone: Sodium [Moles/Vol] 133 mmol/L 136-145 [facility] Work Phone: WBC (Bld) [#/Vol] 12.7 10*3/uL 4.4-11.0 [facility] Work Phone: Blood erythrocytes count (nu mber/volume)on 07-07-2022 RBC (Bld) [#/Vol] 5.16 10*6/uL 4.2-5.4 [facility] Work Phone: Blood hemoglobin measurement (mass/volume)on 07-07-2022 Hemoglobin (Bld) [Mass/Vol] 14.1 g/dL 12.0-15.[address] [facility] Work Phone: Blood lymphocytes/100 leukoc yteson 07-07-2022 Lymphocytes/100 WBC (Bld) 23.8 % 19-[address] [facility] Work Phone: Blood monocytes/100 leukocyt eson 07-07-2022 Monocytes/100 WBC (Bld) 6.5 % 0-10 [facility] Work Phone: Blood platelet mean volumeon 07-07-2022 Platelet mean volume (Bld) [Entitic vol] 9.4 fL 6.2-12.[address] [facility] Work Phone: [phone] Determination of erythrocyte mean corpuscular volume (MCV)on 07-07-2022 MCV (RBC) [Entitic vol] 85.5 fL 81-99 [facility] Work Phone: Erythrocyte sedimentation ra tom 07-07-2022 ESR (Bld) [Velocity] 37 mm[facility]h 0-[facility]: Hematocrit Auto (Bld) [Volum e fraction]on 07-07-2022 Hematocrit (Bld) [Volume fraction] 44.1 % 37-[address] [facility] Work Phone: Iron measurement (mass/mass) on 07-07-2022 Iron (Unsp spec) [Mass/Mass] 62 ug/dL 50-[address] [facility] Work Phone: [phone] Laboratory - Chemistry and C hemistry - challengeon 07-07-2022 ALP [Catalytic activity/Vol] 119 U/L 45-[address] [facility] Work Phone: ALT [Catalytic activity/Vol] 23 U/L 13-[address] [facility] Work Phone: CO2 [Moles/Vol] 28.0 mmol/L 21.0-32.[address] [facility] Work Phone: Globulin (S) [Mass/Vol] 4.5 g/dL 2.2-4.2 [facility] Work Phone: Natriuretic peptide B (Bld) [Mass/Vol] 75.2 pg/mL 0-[address] [facility] Work Phone: Urea nitrogen/Creatinine [Mass ratio] 9.7 mg/mg 10-[address] [facility] Work Phone: Laboratory - Hematology and Cell countson 07-07-2022 Erythrocyte distribution width (RBC) [Entitic vol] 48.6 fL 35.1-43.9 [facility] Work Phone: Erythrocyte distribution width (RBC) [Ratio] 15.6 % 11.6-14.[address] [facility] Work Phone: Immature granulocytes/100 WBC (Bld) 0.500 % 0.0-0.[address] [facility] Work Phone: Comment on above: IG% - Immature Granu locytes (promyelocytes, myelocytes and metamyelocytes) > 1% indicates that a LEFT SHIFT is Present. MCH (RBC) [Entitic mass] 27.3 pg 27.0-32.[address] [facility] Work Phone: Nucleated RBC/100 WBC (Bld) [Ratio] 0 % 0-[address] [facility] Work Phone: MCHC Auto (RBC) [Mass/Vol]on 07-07-2022 MCHC (RBC) [Mass/Vol] 32.0 g/dL 32-36 [facility] Work Phone: No Panel Informationon 07-07 Estimated GFR (MDRD) Amer 69 mL/min >[address] [facility] Work Phone: Comment on above: GFR Calc Estimated GFR (MDRD) Non-Af Amer 57 mL/min >[address] [facility] Work Phone: Comment on above: Non- GFR Calc Thyroid Stimulating Hormone (TSH) 2.63 uIU/mL 0.358-3.[address] [facility] Work Phone: Platelets bldon 07-07-2022 Platelets (Bld) [#/Vol] 373 10*3/uL 150-[address] [facility] Work Phone: Serum or plasma albumin baldemar urement (mass/volume)on 07-07-2022 Albumin [Mass/Vol] 3.7 g/dL 3.2-5.0 [facility] Work Phone: Serum or plasma albumin/glob ulin mass ratioon 07-07-2022 Albumin/Globulin [Mass ratio] 0.8 {ratio} 0.9-2.[address] [facility] Work Phone: Serum or plasma calcium baldemar urement (mass/volume)on 07-07-2022 Calcium [Mass/Vol] 9.4 mg/dL 8.5-10.1 [facility] Work Phone: Serum or plasma creatinine m easurement (mass/volume)on 07-07-2022 Creatinine [Mass/Vol] 1.03 mg/dL 0.55-1.02 [facility] Work Phone: Comment on above: The validity of the calculated GFR & GFRAA in patients over 70 years has not been determined. Clinical correlation is essential. Serum or plasma ferritin alba surement (mass/volume)on 07-07-2022 Ferritin [Mass/Vol] 40 ng/mL 8-252 [facility] Work Phone: Serum or plasma nicotine alba surement (mass/volume)on 07-07-2022 Nicotine [Mass/Vol] 5.0 ug/mL . [facility] Work Phone: Comment on above: This test was develo ped and its performance characteristicsdetermined by [employer]. It has not been cleared orapproved by the Food and Drug Administration.Nicotine levels greater than 2.0 are consistent with theuse of tobacco or tobacco cessation products. Serum or plasma urea nitroge n measurement (mass/volume)on 07-07-2022 Urea nitrogen [Mass/Vol] 10 mg/dL 7-[address] [facility] Work Phone: Thin prep Papanicolaou smear with manual screeningon 07-07-2022 Thin prep Papanicolaou smear with manual screening 18 U/L 15-[address] [facility] Work Phone: Thin prep Papanicolaou smear with manual screening 8 5-[address] [facility] Work Phone: Thin prep Papanicolaou smear with manual screening 87.3 ug/mL . [facility] Work Phone: Comment on above: This test was develo ped and its performance characteristicsdetermined by [employer]. It has not been cleared orapproved by the Food and Drug Administration.Cotinine levels greater than 20.0 are consistent with theuse of tobacco or tobacco cessation products.Performed at: [address] [id number] Director: Dotty Kerns MD, Phone: [phone] Basophil percentageon 2021 Bilirubin [Mass/Vol] 0.50 mg/dL 0.20-1.00 [facility] Work Phone: Comment on above: For patients on eltr ombopag therapy, use of Dimension [place] TBIL is not recommended. Chloride [Moles/Vol] 100 mmol/L 98-107 [facility] Work Phone: Cholesterol [Mass/Vol] 226 mg/dL <200 [facility] Work Phone: Comment on above: <200 mg/dL Desirable 200-240 mg/dL Borderline >240 mg/dL High Risk Glucose [Mass/Vol] 152 mg/dL 74-106 [facility] Work Phone: Comment on above: Fasting Glucose resu lt greater than or equal to 126 mg/dL suggests DIABETES MELLITUS per A.D.A. criteria. Potassium [Moles/Vol] 3.8 mmol/L 3.5-5.1 [facility] Work Phone: Protein [Mass/Vol] 8.2 g/dL 6.4-8.2 [facility] Work Phone: Sodium [Moles/Vol] 135 mmol/L 136-145 [facility] Work Phone: Triglyceride [Mass/Vol] 235 mg/dL <199 [facility] Work Phone: Comment on above: The drugs N-Acetylcy steine and Metamizole may falsely depress this assay.Serum Triglycerides Reference Interval Normal <150 mg/dL Borderline high 150 - 199 mg/dL High 200 - 499 mg/dL Very High > or = 500 mg/dL WBC (Bld) [#/Vol] 9.9 10*3/uL 4.4-11.0 [facility] Work Phone: Blood erythrocytes count (nu mber/volume)on 04-06-2022 RBC (Bld) [#/Vol] 5.22 10*6/uL 4.2-5.4 [facility] Work Phone: Blood hemoglobin measurement (mass/volume)on 04-06-2022 Hemoglobin (Bld) [Mass/Vol] 14.1 g/dL 12.0-15.[address] [facility] Work Phone: [phone] Blood platelet mean volumeon 04-06-2022 Platelet mean volume (Bld) [Entitic vol] 9.2 fL 6.2-12.[address] [facility] Work Phone: [phone] Determination of erythrocyte mean corpuscular volume (MCV)on 04-06-2022 MCV (RBC) [Entitic vol] 85.8 fL 81-99 [facility] Work Phone: [phone] Hematocrit Auto (Bld) [Volum e fraction]on 04-06-2022 Hematocrit (Bld) [Volume fraction] 44.8 % 37-[address] [facility] Work Phone: [phone] Laboratory - Chemistry and C hemistry - challengeon 04-06-2022 ALP [Catalytic activity/Vol] 123 U/L 45-[address] [facility] Work Phone: ALT [Catalytic activity/Vol] 23 U/L 13-[address] [facility] Work Phone: CO2 [Moles/Vol] 25.0 mmol/L 21.0-32.[address] [facility] Work Phone: [phone] Cobalamin (Vitamin B12) [Mass/Vol] 537 pg/mL 211-[address] [facility] Work Phone: Globulin (S) [Mass/Vol] 4.7 g/dL 2.2-4.2 [facility] Work Phone: [phone] Urea nitrogen/Creatinine [Mass ratio] 9.1 mg/mg 10-[address] [facility] Work Phone: Laboratory - Hematology and Cell countson 04-06-2022 Erythrocyte distribution width (RBC) [Entitic vol] 48.4 fL 35.1-43.9 [facility] Work Phone: [phone] Erythrocyte distribution width (RBC) [Ratio] 15.6 % 11.6-14.[address] [facility] Work Phone: [phone] MCH (RBC) [Entitic mass] 27.0 pg 27.0-32.[address] [facility] Work Phone: MCHC Auto (RBC) [Mass/Vol]on 04-06-2022 MCHC (RBC) [Mass/Vol] 31.5 g/dL 32-36 [facility] Work Phone: No Panel Informationon 04-06 Estimated GFR (MDRD) Amer 73 mL/min >[address] [facility] Work Phone: Comment on above: GFR Calc Estimated GFR (MDRD) Non-Af Amer 60 mL/min >[address] [facility] Work Phone: Comment on above: Non- GFR Calc Thyroid Stimulating Hormone (TSH) 1.31 uIU/mL 0.358-3.[address] [facility] Work Phone: Vitamin D 25-Hydroxy 39.2 ng/mL [facility] Work Phone: Comment on above: Vitamin D 25(OH) Sta tus Range Deficiency <20 ng/mL (50nmol/L) Insufficiency 20 - 30 ng/mL (50 - 75 nmol/L) Sufficiency 30 - 100 ng/mL (75 - 250 nmol/L) Toxicity >100 ng/mL (>250 nmol/L) Platelets bldon 04-06-2022 Platelets (Bld) [#/Vol] 363 10*3/uL 150-[address] [facility] Work Phone: Serum or plasma albumin baldemar urement (mass/volume)on 04-06-2022 Albumin [Mass/Vol] 3.5 g/dL 3.2-5.0 [facility] Work Phone: Serum or plasma albumin/glob ulin mass ratioon 04-06-2022 Albumin/Globulin [Mass ratio] 0.7 {ratio} 0.9-2.[address] [facility] Work Phone: Serum or plasma calcium baldemar urement (mass/volume)on 04-06-2022 Calcium [Mass/Vol] 9.6 mg/dL 8.5-10.1 [facility] Work Phone: Serum or plasma cholesterol in HDL measurement (mass/volume)on 04-06-2022 Cholesterol in HDL [Mass/Vol] 37 mg/dL >[address] [facility] Work Phone: Comment on above: The drugs N-Acetylcy steine and Metamizole may falsely depress this assay. Reference Range HDL <40 mg/dL Low HDL Cholesterol HDL >or= 60 mg/dL High HDL Cholesterol Serum or plasma cholesterol in VLDL measurement (mass/volume)on 04-06-2022 Cholesterol in VLDL [Mass/Vol] 47 mg/dL 5-[address] [facility] Work Phone: Serum or plasma creatinine m easurement (mass/volume)on 04-06-2022 Creatinine [Mass/Vol] 0.99 mg/dL 0.55-1.02 [facility] Work Phone: Comment on above: The validity of the calculated GFR & GFRAA in patients over 70 years has not been determined. Clinical correlation is essential. Serum or plasma low density lipoprotein (LDL) cholesterol measurement (mass/volume)on 04-06-2022 Cholesterol in LDL [Mass/Vol] 142 mg/dL 0-[address] [facility] Work Phone: Serum or plasma urea nitroge n measurement (mass/volume)on 04-06-2022 Urea nitrogen [Mass/Vol] 9 mg/dL 7-[address] [facility] Work Phone: Thin prep Papanicolaou smear with manual screeningon 04-06-2022 Thin prep Papanicolaou smear with manual screening 18 U/L 15-[address] [facility] Work Phone: Thin prep Papanicolaou smear with manual screening 10 5-[address] [facility] Work Phone: ALLIED HEALTHon 07-06-2019 [facility] HNO ID: [id number] Author: SAMPSON Parnell (Ct) Service: Nuclear Medicine Author Type: Clinical Coal Chemist Type: [facility] Filed: 07/06/2019 1:45 PM Note Text: RADIOLOGY SERVICE PROGRESS NOTE SERVICE DATE: 07/06/2019 SERVICE TIME: 1:44 PM PATIENT IDENTITY VERIFICATION COMPLETED USING TWO (2) METHODS: Patient confirmed name and Date of verbally. PATIENT GENDER DATA: .female : No ALLERGIES: Reviewed and unchanged MEDICATIONS REVIEWED: Not applicable PATIENT RELEVANT IMPLANT DATA REVIEWED: Not Applicable CREATININE: Creatinine Date Value Ref Range Status 05/22/2019 0.73 0.58 - 0.96 mg/dL Final 04/27/2019 0.74 0.51 - 0.95 mg/dL Final 11/04/2017 0.86 0.58 - 0.96 mg/dL Final eGFR-All Other Races Date Value Ref Range Status 05/22/2019 >60 . Final Comment: eGFR (Estimated GFR) [...] GFR. eGFR- Date Value Ref Range Status 05/22/2019 >60 Final P.O.C.T. RESULTS: N/A July 06, [address] PERFORMED: No IV SITE: Ambulatory: A peripheral IV was started in the Right forearm with a Angio cath: 22 gauge. POST EXAM PIV STATUS: Discontinued PROCEDURE TYPE: NC Stress: 12.8mCi [id number] was administered IV for Rest Imaging at 07:55 by SAMPSON Parnell . 34.0 mCi [id number] was administered IV for Stress Imaging at 09:34 by SAMPSON Parnell . ADMINISTRATION TIME: PATIENT DISCHARGED TO: Ambulatory patient, left NC department area. A Diagnostic radioactive procedure has taken place, with no further precautions necessary other than routine body substance precautions. More information regarding radiation safety can be found using this link: [email or web address] SIGNATURE: SAMPSON Parnell PATIENT NAME: Karolina Canada DATE: July 06, 2019 TIME: 1:44 PM PAGER/CONTACT #: [facility] CARDIAC PERF STRESS/PHARM on 07-06-2019 NM CARDIAC PERF STRESS/PHARM * * *Final Report* * * DATE OF EXAM: Jul 06 2019 10:42AM AZAM 0006 - NM CARDIAC PERF STRESS/PHARM / PROCEDURE REASON: multiple diagnoses * * * * Physician Interpretation * * * * PATIENT: Name: KAROLINA CANADA Age: 63 years Gender: F CONCLUSIONS: 1. SPECT Perfusion Study: Normal. 2. There is no scintigraphic evidence for inducible ischemia. 3. No evidence of scarred myocardium. 4. Functional capacity N/A (pharmacological). 5. Left ventricle is normal in size. The left ventricle systolic function is normal. 6. Right ventricle is normal in size. 7. This is a low risk scan. LVEF % 60 Prior Study Comparison Prior nuclear cardiology exam was performed on [..].04/04/2012. Nuclear Med Report:1-Day Tc-Tetrofosmin Gated SPECT Myocardial Perfusion with Regadenoson Stress: Myocardial perfusion imaging was performed at rest 30 minutes following the IV injection of Tc-99m tetrofosmin. The patient received 0.4 mg of regadenoson, via rapid IV push, immediately followed by Tc-99m tetrofosmin IV. Gated post stress tomographic imaging was performed 30 to 60 minutes later. See administered doses below. [facility] Date of service: 07/06/2019 8:05:50 AM Ordering Physician: Nika Robles Requesting Physician: Indication: CP - ECG uniterpretable OR unable to exercise and Dyspnea. Interpreting physician: Brian Drake DO Patient History: History of hypertension, diabetes mellitus, dyslipidemia, Prior smoker, family hx of premature CAD, coronary heart disease and myocardial infarction. Medications currently taking are ASA, statins, B-gale and anti-depressants. Previous Cardiovascular Interventions: CABG (2006 x4) PCI (2007) PCI (2015 x2) Height: 162.56 cm BSA: 1.80 m? Weight: 71.67 kg BMI: 27.1 kg/m? Imaging Protocol Pt was ReScanned: Yes. Primary Rhythm: Sinus. Secondary Rhythm: Sinus. Exam Type: Rest Stress Radiopharm: Tc-99m Tetrofosmin Tc-99m Tetrofosmin Dosage(mCi): 12.8 34.0 Atten Correction: not performed not performed Stress Agent: Regadenoson 0.4mg Supply provided from [facility] Resting Heart Rate: 74 bpm Resting Blood Press: 155/73 mmHg Image Quality The overall study imaging quality was deemed to be good. FINDINGS: LVEF: 60 % LEFT VENTRICLE The left ventricle is normal in size. Left ventricular systolic function is normal. Right Ventricle The right ventricle is normal in size. Stress Test Findings: There is no scintigraphic evidence for inducible ischemia. There is no evidence of scarring. The stress test was terminated due to the following: End of Protocol. Peak HR 112 bpm. (71 % MPHR) Peak BP 223 mmHg/86 mmHg Patient experienced nausea during stress. Stress ECG normal ST segment response and normal sinus rhythm. Stress complications: none. Final Dermatology Nurse: ELMER Transcribe Date/Time: Jul 06 2019 8:05A Dictated by : BRIAN DRAKE DO This examination was interpreted and the report reviewed and electronically signed by: BRIAN DRAKE DO on Jul 06 2019 4:55PM EST [id number] [facility] NUCLEAR STRESS LEXISCAN (CAR D)on 07-06-2019 NUCLEAR STRESS LEXISCAN (CARD) NAME : KAROLINA CANADA PID : [id number] : 1955 Gender : Female Race : ORD : [id number] Procedure Date : Jul 06 2019 09:58:12 Edit Date : Jul 11 2019 12:57:08 Conclusions:PLEASE REFER TO IMAGING SECTION IN [facility] FOR COMPLETE INTERPRETATION OF STRESS TEST AND MYOCARDIAL PERFUSION IMAGING Protocol Name : LEXISCAN Time In Exercise Phase : 00:06:00 Max. Systolic BP : 223 mmHg Max Diastolic BP : 86 mmHg Max Heart Rate : 122 BPM Max Predicted Heart Rate : 158 BPM Recovery ECG Response (OLD) : Reason For Termination : End of Protocol Test Reason : Chest Pain Location :NSL Overread By : BRIAN DRAKE D.O. Edited By : Melida Girard Referred By : NIKA ROBLES Acquired by : Melida Girard [facility] Nara 07-05-2019 CNPN Telephone ([facility]) ----- KAROLINA CANADA ([id number]) 1955 F Date Time Provider Department 07/05/19 MARIA VICTORIA BROWNING (RN) [facility] During your visit today, we recorded the following information about you: Maria Victoria Browning RN, RN 07/05/2019 12:08 PM Signed Left message regarding reminder for stress test tomorrow and given instructions. Allergies As of Date: 07/05/2019 Noted Allergy Reaction PENICILLINS 01/18/2006 4 - [...] - Other: See Comments Comments: headaches PERCOCET (OXYCODONE-ACETAMINOPHEN) 12/09/2012 8 - GI Upset PLAVIX (CLOPIDOGREL BISULFATE) [...] - Hives Comments: yeast infections Date Reviewed: 06/28/2019 Reviewed by: Nika Roca Ma - Fully Assessed Reason for Visit: Reminder Call [[id number]] Prescriptions as of 07/05/2019 Sig: FERROUS SULFATE 325 MG (65 MG* Take 325 mg by mouth twice da* ALBUTEROL SULFATE HFA 90 MCG/* Inhale 2 Puffs as instructed * ERGOCALCIFEROL (VITAMIN D2) 2* Take 1 tablet by mouth once d* GLIMEPIRIDE 4 MG TABLET Take 4 mg by mouth daily with* NITROGLYCERIN 0.4 MG SUBLINGU* Dissolve 1 tablet under the t* ATORVASTATIN 40 MG TABLET TAKE 1 TABLET BY MOUTH ONCE D* OMEPRAZOLE 40 MG CAPSULE,KEV* Take 40 mg by mouth once anisa* LINAGLIPTIN 5 MG TABLET Take 5 mg by mouth once daily* ESCITALOPRAM 10 MG TABLET Take 10 mg by mouth once anisa* ASPIRIN 81 MG TABLET,DELAYED * Take 1 tablet by mouth once d* Problem List As Of Date 07/05/2019 Noted Resolved CHEST PAIN NOS [R07.9] INVALID FOR* ASCVD [I25.10] INVALID FOR* Mixed hyperlipidemia [E78.2] INVALID FOR* Nausea with Vomiting [R11.2] INVALID [...] S/P CABG x 4 [Z95.1] INVALID FOR* Chest pain [R07.9] INVALID FOR* Iron deficiency anemia [D50.9] INVALID FOR* Diabetes (HCC) [E11.9] INVALID FOR* Coronary artery disease [I25.10] INVALID FOR* S/P coronary artery stent placement [Z95.5] INVALID FOR* Essential hypertension [I10] INVALID FOR* Encounter Status:Closed by MARIA VICTORIA BROWNING on 07/05/19 Normal [facility] Glucose Meteron 04-28-2019 Glucose [Mass/Vol] 142 mg/dL High 70-99 [facility] Comment on above: Result Comment: ZAYNAB Campos OTIFIED Performed By: #### G LMET #### [place] [address] Hemogram/Diffon 04-28-2019 Abs Immature Grans 0.02 thou/cmm Normal 0.00-0.05 [facility] Comment on above: Performed By: #### E RTRP #### [place] [address] Abs Neut (ANC) 4.26 thou/cmm Normal 1.56-6.13 [facility] Comment on above: Performed By: #### E RTRP #### [place] [address] Abs. Baso 0.08 thou/cmm Normal 0.01-0.08 [facility] Comment on above: Performed By: #### E RTRP #### [place] [address] Abs. Gregg 0.50 thou/cmm Normal 0.27-0.70 [facility] Comment on above: Performed By: #### E RTRP #### [place] [address] Basophils/100 WBC (Bld) 1.0 % Normal A [facility] [place] Comment on above: Performed By: #### E RTRP #### [place] [address] Eosinophils (Bld) [#/Vol] 0.21 thou/cmm Normal 0.00-0. 31 [facility] Comment on above: Performed By: #### E RTRP #### [facility] [address] [place], [place] [address] Eosinophils/100 WBC (Bld) 2.7 % Normal [facility] Comment on above: Performed By: #### E RTRP #### [facility] [address] [place], [place] [address] Erythrocyte distribution width (RBC) [Ratio] 16.7 % High 11.7-14.4 [facility] Comment on above: Performed By: #### E RTRP #### [facility] [address] [place] [address] Hematocrit (Bld) [Volume fraction] 36.3 % Normal 34.1-44.9 [facility] Comment on above: Performed By: #### E RTRP #### [facility] [address] [place] [address] Hemoglobin (Bld) [Mass/Vol] 10.7 g/dL Low 11.2-15.7 [facility] Comment on above: Performed By: #### E RTRP #### [facility] [address] [place] [address] Immature Grans 0.30 % Normal [facility] Comment on above: Performed By: #### E RTRP #### [facility] [address] [place] [address] Lymphocytes (Bld) [#/Vol] 2.74 thou/cmm Normal 1.18-3. 74 [facility] Comment on above: Performed By: #### E RTRP #### [facility] [address] [place] [address] Lymphocytes/100 WBC (Bld) 35.1 % Normal [facility] Comment on above: Performed By: #### E RTRP #### [facility] [address] [place] [address] MCH (RBC) [Entitic mass] 23.9 pg Low 25.6-32.2 [facility] Comment on above: Performed By: #### E RTRP #### [facility] [address] [place] [address] MCHC (RBC) [Mass/Vol] 29.5 % Low 31.6-34.8 [facility] Comment on above: Performed By: #### E RTRP #### [facility] [address] [place] [address] MCV (RBC) [Entitic vol] 81.0 fL Normal 79.4-94.8 [facility] Comment on above: Performed By: #### E RTRP #### [facility] [address] [place] [address] Monocytes/100 WBC (Bld) 6.4 % Normal [facility] Comment on above: Performed By: #### E RTRP #### [facility] [address] [place] [address] Platelet mean volume (Bld) [Entitic vol] 9.0 fL Low 9.4-12.3 [facility] Comment on above: Performed By: #### E RTRP #### [place] [address] Platelets (Bld) [#/Vol] 279 thou/cmm Normal 182-369 [facility] Comment on above: Performed By: #### E RTRP #### [facility] [address] [place] [address] RBC (Bld) [#/Vol] 4.48 mil/cmm Normal 3.93-5.22 [facility] Comment on above: Performed By: #### E RTRP #### [place] [address] RDW SD 48.5 fl High 36.4-46.3 [facility] Comment on above: Performed By: #### E RTRP #### [facility] [address] [place] [address] Seg Neutrophil 54.5 % Normal [facility] Comment on above: Performed By: #### E RTRP #### [facility] [address] [place] [address] WBC (Bld) [#/Vol] 7.81 thou/cmm Normal 3.98-10.04 [facility] Comment on above: Performed By: #### E RTRP #### [facility] [address] [place], [place] [address] Lipid Profileon 04-28-2019 Cholesterol in HDL [Mass/Vol] 30 mg/dL Normal >40 [facility] Comment on above: Performed By: #### E RTRP #### [facility] [address] [place], [place] [address] Cholesterol in LDL [Mass/Vol] 18 mg/dL Normal [facility] Comment on above: Result Comment: No C AD and with fewer than 2 CAD risk factors <160 mg/dL No CAD but with 2 or more CAD risk factors <130 mg/dL Definite CAD or other atherosclerotic disease <100 mg/dL Performed By: #### E RTRP #### [facility] [address] [place], [place] [address] Cholesterol in LDL/Cholesterol in HDL [Mass ratio] 0.6 Normal 0.6-3.6 [facility] Comment on above: Result Comment: LDL, VLDL,LDL/HDL, Invalid if Triglyceride >400 Performed By: #### E RTRP #### [facility] [address] [place], [place] [address] Cholesterol.total/Cholest bonnie in HDL [Mass ratio] 2.9 {ratio} Normal 1.8-5.3 [facility] Comment on above: Performed By: #### E RTRP #### [address] [address] Cholesterol in VLDL [Mass/Vol] 40 mg/dL Normal <50 Desired [facility] Comment on above: Performed By: #### E RTRP #### [facility] [address] [place], [place] [address] Triglyceride [Mass/Vol] 201 mg/dL High 0-149 A [facility] [place] Comment on above: Result Comment: < 20 0 Desirable Result invalid if not a fasting specimen. Performed By: #### E RTRP #### [facility] [address] [place], [place] [address] Cholesterol [Mass/Vol] 88 mg/dL Normal 0-[address] [facility] Comment on above: Result Comment: <200 Desirable 200-240 Borderline >240 High Performed By: #### E RTRP #### [facility] [address] [place], [place] [address] Basic Panelon 04-27-2019 Creatinine [Mass/Vol] 0.74 mg/dL Normal 0.51-0.95 [facility] Comment on above: Performed By: #### P 8 #### [facility] [address] [place], [place] [address] Anion gap [Moles/Vol] 9 mmol/L Normal 8-16 [facility] Comment on above: Performed By: #### P 8 #### [facility] [address] [place], [place] [address] CO2 [Moles/Vol] 27 mmol/L Normal 21-32 [facility] Comment on above: Performed By: #### P 8 #### [facility] [address], [place] [address] Glucose [Mass/Vol] 301 mg/dL High 70-99 [facility] Comment on above: Performed By: #### P 8 #### [facility] [address] [place], [place] [address] Urea nitrogen [Mass/Vol] 7 mg/dL Normal 7-18 [facility] Comment on above: Performed By: #### P 8 #### [facility] [address] [place], [place] [address] Calcium [Mass/Vol] 8.6 mg/dL Normal 8.5-10.1 [facility] Comment on above: Performed By: #### P 8 #### [facility] [address] [place], [place] [address] Chloride [Moles/Vol] 102 mmol/L Normal 98-107 [facility] Comment on above: Performed By: #### P 8 #### [facility] [address] [place], [place] [address] Potassium [Moles/Vol] 4.2 mmol/L Normal 3.5-5.1 [facility] Comment on above: Performed By: #### P 8 #### [facility] [address] [place], [place] [address] Sodium [Moles/Vol] 134 mmol/L Low 136-145 [facility] Comment on above: Performed By: #### P 8 #### [address] [place], [place] [address] [facility] Troponin Ion 04-27-2019 Troponin I.cardiac [Mass/Vol] ng/mL Normal 0.015-0.04 5 [facility] Comment on above: Performed By: #### E RTRP #### [facility] [address] [place] [address] Ferritinon 04-27-2019 Ferritin [Mass/Vol] 10.10 ng/mL Normal 8.00-252 .0 0 [facility] Comment on above: Performed By: #### F ERR #### [facility] [address] [place] [address] Folateon 04-27-2019 Folate 10.60 ng/mL Normal 3.10-17.50 [facility] Comment on above: Performed By: #### E RTRP #### [facility] [address] [place] [address] Hemogram/Diffon 04-27-2019 Abs Immature Grans 0.05 thou/cmm Normal 0.00-0.05 [facility] Comment on above: Performed By: #### C BCD1 #### [facility] [address] [place] [address] Abs Neut (ANC) 4.03 thou/cmm Normal 1.56-6.13 [facility] Comment on above: Performed By: #### C BCD1 #### [place] [address] Abs. Baso 0.07 thou/cmm Normal 0.01-0.08 [facility] Comment on above: Performed By: #### C BCD1 #### [facility] [address] [place] [address] Abs. Gregg 0.47 thou/cmm Normal 0.27-0.70 [facility] Comment on above: Performed By: #### C BCD1 #### [facility] [address] [place] [address] Basophils/100 WBC (Bld) 1.0 % Normal A [facility] [place] Comment on above: Performed By: #### C BCD1 #### [facility] [address] [place] [address] Eosinophils (Bld) [#/Vol] 0.17 thou/cmm Normal 0.00-0. 31 [facility] Comment on above: Performed By: #### C BCD1 #### [facility] [address] [place] [address] Eosinophils/100 WBC (Bld) 2.5 % Normal [facility] Comment on above: Performed By: #### C BCD1 #### [facility] [address] [place] [address] Erythrocyte distribution width (RBC) [Ratio] 16.5 % High 11.7-14.4 [facility] Comment on above: Performed By: #### C BCD1 #### [facility] [address] [place] [address] Hematocrit (Bld) [Volume fraction] 36.1 % Normal 34.1-44.9 [facility] Comment on above: Performed By: #### C BCD1 #### [facility] [address] [place] [address] Hemoglobin (Bld) [Mass/Vol] 10.9 g/dL Low 11.2-15.7 [facility] Comment on above: Performed By: #### C BCD1 #### [place] [address] Immature Grans 0.70 % Normal [facility] Comment on above: Performed By: #### C BCD1 #### [facility] [address] [place] [address] Lymphocytes (Bld) [#/Vol] 2.11 thou/cmm Normal 1.18-3. 74 [facility] Comment on above: Performed By: #### C BCD1 #### [facility] [address] [place] [address] Lymphocytes/100 WBC (Bld) 30.6 % Normal [facility] Comment on above: Performed By: #### C BCD1 #### [facility] [address] [place] [address] MCH (RBC) [Entitic mass] 23.7 pg Low 25.6-32.2 [facility] Comment on above: Performed By: #### C BCD1 #### [facility] [address] [place], [place] [address] MCHC (RBC) [Mass/Vol] 30.2 % Low 31.6-34.8 [facility] Comment on above: Performed By: #### C BCD1 #### [facility] [address] [place] [address] MCV (RBC) [Entitic vol] 78.5 fL Low 79.4-94.8 [facility] Comment on above: Performed By: #### C BCD1 #### [facility] [address] [place] [address] Monocytes/100 WBC (Bld) 6.8 % Normal [facility] Comment on above: Performed By: #### C BCD1 #### [facility] [address] [place] [address] Platelet mean volume (Bld) [Entitic vol] 9.2 fL Low 9.4-12.3 [facility] Comment on above: Performed By: #### C BCD1 #### [facility] [address] [place] [address] Platelets (Bld) [#/Vol] 294 thou/cmm Normal 182-369 [facility] Comment on above: Performed By: #### C BCD1 #### [facility] [address] [place] [address] RBC (Bld) [#/Vol] 4.60 mil/cmm Normal 3.93-5.22 [facility] Comment on above: Performed By: #### C BCD1 #### [facility] [address] [place] [address] RDW SD 46.6 fl High 36.4-46.3 [facility] Comment on above: Performed By: #### C BCD1 #### [facility] [address] [place] [address] Seg Neutrophil 58.4 % Normal [facility] Comment on above: Performed By: #### C BCD1 #### [facility] [address] [place] [address] WBC (Bld) [#/Vol] 6.90 thou/cmm Normal 3.98-10.04 [facility] Comment on above: Performed By: #### C BCD1 #### [place] [address] Hgb A1con 04-27-2019 HbA1c (Bld) [Mass fraction] 8.7 % High 4.2-6.3 [facility] Comment on above: Result Comment: Meth od is National Glycohemoglobin Standardization Program (NGSP) compliant. Performed By: #### E RTRP #### [place] [address] HbA1c (Bld) [Mass fraction] 203 mg/dl Normal [facility] Comment on above: Performed By: #### E RTRP #### [place] [address] Iron % Saturationon 04-27-20 19 Iron % Saturation 6 % Low 20-55 [facility] Comment on above: Performed By: #### I RONS #### [place] [address] Iron Binding Cap. 359 ug/dL Normal 250-450 [facility] Comment on above: Performed By: #### I RONS #### [place] [address] Iron Serum 21 ug/dL Low 50-170 [facility] Comment on above: Performed By: #### I RONS #### [place] [address] MDRD GFRon 04-27-2019 GFR/1.73 sq M predicted among non-blacks MDRD (S/P/Bld) [Vol rate/Area] mL/min/{1.73_m2} Normal >60mL/min/ 1.73m2 [facility] Comment on above: Result Comment: If t he patient is , multiply the result by 1.210. Performed By: #### G FR #### [place] [address] Magnesium Bloodon 04-27-2019 Magnesium [Mass/Vol] 2.3 mg/dL Normal 1.6-2.6 [facility] Comment on above: Performed By: #### M AG #### [facility] [address] [place] [address] N-terminal Pro-BNPon 019 Natriuretic peptide B (Bld) [Mass/Vol] 38 pg/mL Normal [facility] Comment on above: Result Comment: Note new reference range: Normal Reference Range: Patients <75 yrs old <125pg/ml Patients >=75 yrs old <450 pg/ml Performed By: #### P BNP #### [place] [address] Troponin Ion 04-27-2019 Troponin I.cardiac [Mass/Vol] ng/mL Normal 0.015-0.04 5 [facility] Comment on above: Performed By: #### E RTRP #### [place] [address] Troponin I.cardiac [Mass/Vol] ng/mL Normal 0.015-0.04 5 [facility] Comment on above: Performed By: #### T ROP #### [place] [address] Vitamin B12on 04-27-2019 Cobalamin (Vitamin B12) [Mass/Vol] 503 pg/mL Normal 193-986 [facility] Comment on above: Performed By: #### E RTRP #### [address] Surgical Pathology Depar tmenton 01-10-2018 [facility] Surgical Pathology Department Name [place] Pathologist: ALETHEA GARCIA M.D., PhD.Date of Procedure: 01/10/2018Date Received: 01/10/2018Date Reported 01/13/2018Submitting Physician: JONATAN RANDALL MDLocation: APMIID Copy To/Referring/Attending:ALEJANDRA SY MD Other External # [id number] FINAL DIAGNOSISA. SIGMOID POLYP, POLYPECTOMY:--TUBULAR ADENOMA B. TRANSVERSE POLYP, POLYPECTOMY:--TUBULAR ADENOMAThe gross and/or microscopic findings were reviewed in conjunction withpathology resident, John Curiel M.D. Electronically Signed Out By ALETHEA GARCIA M.D., PhD./[place] the signature on this report, the individual or group listed as making theFinal Interpretation/Diagnosis certifies that they have reviewed this case. Clinical History:Colon polypSpecimens Submitted As:A: SIGMOID POLYP B: TRANSVERSE POLYP Other Case Numbers [id number] Description:A: Received in formalin, labeled with the patient's name and hospital numberand 1-sigmoid polyp, are multiple polypoid segments of welsh, soft tissueranging from 0.4 x 0.3 x 0.2 cm to 1.7 x 1.5 x 0.9 cm. The lines of resectionare inked and the polyps are trisected. The specimen is entirely submitted in7 cassettes.ALTB: Received in formalin, labeled with the patient's name and hospital numberand 2-transverse colon polyp, is a fragment of welsh, soft tissue measuring 0.5x 0.2 x 0.2 cm. The specimen is submitted in toto in one cassette.ALTSummary of Cassettes:Specimen Label SiteA 1 #1 polyp line of resection 2 #1 polyp sides 3 #2 polyp line of resection 4 #2 polyp sides 5 #3 polyp line of resection 6 #3 polyp sides 7 remaining tissuealt/01/11/2018 Normal [facility] Comment on above: Performed By: #### U [facility] ####[facility] Surgical Pathology [id number] [place] [address] Clostridium difficile detect ion by polymerase chain reaction C. difficile DNA HESHAM+probe Ql (Unsp spec) [facility] Work Phone: No Panel Information Giardia Antigen (FAITH) [facility] Work Phone: Ova and parasites Ova and parasites identified LM Nom (Unsp spec) [facility] Work Phone: Stool lactoferrin detection by immunoassay Lactoferrin IA Ql (Stl) [facility] Work Phone: Vital Signs Date Time Vital Sign Value Performing Clinician Faci lity 02-22-2025 14:06-0400 Body height 162.[address] Tyrel Sy MD Work Phone: [facility] 02-22-2025 14:04-0400 Body mass index (BMI) [Ratio] 21.2 kg/m2 Dr. Tyrel Sy MD Work Phone: [facility] 02-22-2025 14:04-0400 Body temperature 98.4 [degF] Dr. Tyrel Sy MD Work Phone: [facility] 02-22-2025 14:04-0400 Body weight 56.[address] Tyrel Sy MD Work Phone: [facility] 02-22-2025 14:04-0400 Diastolic blood pressure 76 mm[Hg] Dr. Tyrel Sy MD Work Phone: [facility] 02-22-2025 14:04-0400 Heart rate 94 /min Dr. Tyrel Sy MD Work Phone: [facility] 02-22-2025 14:04-0400 Respiratory rate 18 /min Dr. Tyrel Sy MD Work Phone: [facility] 02-22-2025 14:04-0400 SaO2% (BldA) [Mass fraction] 97 % Dr. Tyrel Sy MD Work Phone: [facility] 02-22-2025 14:04-0400 Systolic blood pressure 121 mm[Hg] Dr. Tyrel Sy MD Work Phone: [facility] 06-16-2024 14:47-0400 Body mass index (BMI) [Ratio] 22.42 kg/m2 Dede Santa MD Work Phone: [facility] 06-16-2024 14:47-0400 Body weight 59.24 kg Dede Santa MD Work Phone: [facility] 06-16-2024 14:47-0400 Diastolic blood pressure 69 mm[Hg] Dede Santa MD Work Phone: [facility] 06-16-2024 14:47-0400 Heart rate 66 /min Dede Santa MD Work Phone: [facility] 06-16-2024 14:47-0400 SaO2% (BldA) [Mass fraction] 100 % Dede Santa MD Work Phone: [facility] 06-16-2024 14:47-0400 Systolic blood pressure 125 mm[Hg] Dede Santa MD Work Phone: [facility] 05-25-2024 15:32-0400 Diastolic blood pressure 61 mm[Hg] Dr. Tyrel Sy MD Work Phone: [facility] 05-25-2024 15:32-0400 Heart rate 71 /min Dr. Tyrel Sy MD Work Phone: [facility] 05-25-2024 15:32-0400 Respiratory rate 16 /min Dr. Tyrel Sy MD Work Phone: [facility] 05-25-2024 15:32-0400 Systolic blood pressure 119 mm[Hg] Dr. Tyrel Sy MD Work Phone: [facility] 05-25-2024 13:28-0400 Body mass index (BMI) [Ratio] 21.6 kg/m2 Dr. Tyrel Sy MD Work Phone: [facility] 05-25-2024 13:28-0400 Body temperature 97.1 [degF] Dr. Tyrel Sy MD Work Phone: [facility] 05-25-2024 13:28-0400 SaO2% (BldA) [Mass fraction] 100 % Dr. Tyrel Sy MD Work Phone: [facility] 02-17-2024 16:02-0400 Body temperature 97.8 [degF] Dr. David Sy Work Phone: [facility] 02-17-2024 16:02-0400 Diastolic blood pressure 41 mm[Hg] Dr. David Sy Work Phone: [facility] 02-17-2024 16:02-0400 Heart rate 80 /min Dr. David Sy Work Phone: [facility] 02-17-2024 16:02-0400 Respiratory rate 16 /min Dr. David Sy Work Phone: [facility] 02-17-2024 16:02-0400 SaO2% (BldA) [Mass fraction] 97 % Dr. David Sy Work Phone: [facility] 02-17-2024 16:02-0400 Systolic blood pressure 107 mm[Hg] Dr. David Sy Work Phone: [facility] 02-17-2024 14:18-0400 Body height 162.[address] David Sy Work Phone: [facility] 02-17-2024 14:18-0400 Body mass index (BMI) [Ratio] 23.1 kg/m2 Dr. David Sy Work Phone: [facility] 02-17-2024 14:18-0400 Body weight 61.[address] David Sy Work Phone: [facility] 02-15-2024 10:13-0400 Body height 162.6 cm Isis Best APRN.MUSIC MINISTER Work Phone: [facility] 02-15-2024 10:13-0400 Body weight 57.15 kg Isis Best APRN.MUSIC MINISTER Work Phone: [facility] 02-15-2024 10:13-0400 Diastolic blood pressure 54 mm[Hg] Isis Best APRN.MUSIC MINISTER Work Phone: [facility] 02-15-2024 10:13-0400 Heart rate 88 /min Isis Best APRN.MUSIC MINISTER Work Phone: [facility] 02-15-2024 10:13-0400 SaO2% (BldA) [Mass fraction] 98 % Isis Best APRN.MUSIC MINISTER Work Phone: [facility] 02-15-2024 10:13-0400 Systolic blood pressure 110 mm[Hg] Isis Best APRN.CNP Work Phone: [facility] 01-25-2024 11:10-0500 Body height 162.[address] David Sy Work Phone: [facility] 01-25-2024 11:10-0500 Body mass index (BMI) [Ratio] 23.3 kg/m2 Dr. David Sy Work Phone: [facility] 01-25-2024 11:10-0500 Body temperature 98.2 [degF] Dr. David Sy Work Phone: [facility] 01-25-2024 11:10-0500 Body weight 61.[address] David Sy Work Phone: [facility] 01-25-2024 11:10-0500 Diastolic blood pressure 69 mm[Hg] Dr. David Sy Work Phone: [facility] 01-25-2024 11:10-0500 Heart rate 77 /min Dr. David Sy Work Phone: [facility] 01-25-2024 11:10-0500 Respiratory rate 18 /min Dr. David Sy Work Phone: [facility] 01-25-2024 11:10-0500 SaO2% (BldA) [Mass fraction] 100 % Dr. David Sy Work Phone: [facility] 01-25-2024 11:10-0500 Systolic blood pressure 138 mm[Hg] Dr. David Sy Work Phone: [facility] 01-12-2024 09:45-0500 Body height 162.6 [address] 1 [facility] 01-12-2024 09:45-0500 Body temperature 96.8 [degF] Pst 1 [facility] 01-12-2024 09:45-0500 Body weight 58.97 kg [address] 1 [facility] 01-12-2024 09:45-0500 Diastolic blood pressure 57 mm[Hg] Pst 1 [facility] 01-12-2024 09:45-0500 Heart rate 62 /min Pst 1 [facility] 01-12-2024 09:45-0500 Respiratory rate 18 /min Pst 1 [facility] 01-12-2024 09:45-0500 SaO2% (BldA) [Mass fraction] 98 [...] Reilly MD Work Phone: [facility] 09-10-2023 13:54-0400 Diastolic blood pressure 50 mm[Hg] Dr. David Sy Work Phone: [facility] 09-10-2023 13:54-0400 Heart rate 84 /min Dr. David Sy Work Phone: [facility] 09-10-2023 13:54-0400 Respiratory rate 18 /min Dr. David Sy Work Phone: [facility] 09-10-2023 13:54-0400 SaO2% (BldA) [Mass fraction] 98 % Dr. David Sy Work Phone: [facility] 09-10-2023 13:54-0400 Systolic blood pressure 132 mm[Hg] Dr. David Sy Work Phone: [facility] 09-10-2023 11:46-0400 Body height 162.[address] David Sy Work Phone: [facility] 09-10-2023 11:46-0400 Body mass index (BMI) [Ratio] 22.4 kg/m2 Dr. David Sy Work Phone: [facility] 09-10-2023 11:46-0400 Body temperature 97.8 [degF] Dr. David Sy Work Phone: [facility] 09-10-2023 11:46-0400 Body weight 59.[address] David Sy Work Phone: [facility] 09-03-2023 13:20-0400 Body height 162.6 cm Dede Santa MD Work Phone: [facility] 09-03-2023 13:20-0400 Body weight 59.88 kg Dede Santa MD Work Phone: [facility] 09-03-2023 13:20-0400 Diastolic blood pressure 41 mm[Hg] Dede Santa MD Work Phone: [facility] 09-03-2023 13:20-0400 Heart rate 78 /min Dede Santa MD Work Phone: [facility] 09-03-2023 13:20-0400 SaO2% (BldA) [Mass fraction] 99 % Dede Santa MD Work Phone: [facility] 09-03-2023 13:20-0400 Systolic blood pressure 83 mm[Hg] Dede Santa MD Work Phone: [facility] 05-05-2023 10:50-0400 Body temperature 97.9 [degF] Dr. David Sy Work Phone: [facility] 05-05-2023 10:50-0400 Diastolic blood pressure 52 mm[Hg] Dr. David Sy Work Phone: [facility] 05-05-2023 10:50-0400 Heart rate 67 /min Dr. David Sy Work Phone: [facility] 05-05-2023 10:50-0400 Respiratory rate 16 /min Dr. David Sy Work Phone: [facility] 05-05-2023 10:50-0400 SaO2% (BldA) [Mass fraction] 97 % Dr. David Sy Work Phone: [facility] 05-05-2023 10:50-0400 Systolic blood pressure 95 mm[Hg] Dr. David Sy Work Phone: [facility] 05-05-2023 08:24-0400 Body height 162.[address] David Sy Work Phone: [facility] 05-05-2023 08:24-0400 Body mass index (BMI) [Ratio] 22.6 kg/m2 Dr. Davdi Sy Work Phone: [phone] [place] [address] 05-05-2023 08:24-0400 Body weight [address] David Sy Work Phone: [facility] 04-21-2023 15:02-0400 Body height 162.[address] David Sy Work Phone: [facility] 04-21-2023 15:02-0400 Body mass index (BMI) [Ratio] 22.3 kg/m2 Dr. David Sy Work Phone: [facility] 04-21-2023 15:02-0400 Body weight 58.[address] David Sy Work Phone: [facility] 04-21-2023 15:02-0400 Diastolic blood pressure 53 mm[Hg] Dr. David Sy Work Phone: [facility] 04-21-2023 15:02-0400 Heart rate 72 /min Dr. David Sy Work Phone: [facility] 04-21-2023 15:02-0400 Respiratory rate 16 /min Dr. David Sy Work Phone: [facility] 04-21-2023 15:02-0400 Systolic blood pressure 100 mm[Hg] Dr. David Sy Work Phone: [facility] 02-19-2023 14:04-0400 Body temperature 96.7 [degF] Dr. David Sy Work Phone: [facility] 02-19-2023 14:04-0400 Diastolic blood pressure 44 mm[Hg] Dr. David Sy Work Phone: [facility] 02-19-2023 14:04-0400 Heart rate 59 /min Dr. David Sy Work Phone: [facility] 02-19-2023 14:04-0400 Respiratory rate 16 /min Dr. David Sy Work Phone: [facility] 02-19-2023 14:04-0400 SaO2% (BldA) [Mass fraction] 100 % Dr. David Sy Work Phone: [facility] 02-19-2023 14:04-0400 Systolic blood pressure 108 mm[Hg] Dr. David Sy Work Phone: [facility] 02-19-2023 12:21-0400 Body height 162.[address] David Sy Work Phone: [facility] 02-19-2023 12:21-0400 Body mass index (BMI) [Ratio] 21.9 kg/m2 Dr. David Sy Work Phone: [facility] 02-19-2023 12:21-0400 Body weight 58.[address] David Sy Work Phone: [facility] 01-21-2023 14:13-0500 Body height 162.[address] David Sy Work Phone: [facility] 01-21-2023 14:13-0500 Body mass index (BMI) [Ratio] 22.3 kg/m2 Dr. David Sy Work Phone: [facility] 01-21-2023 14:13-0500 Body weight 59.[address] David Sy Work Phone: [facility] 01-21-2023 14:13-0500 Diastolic blood pressure 58 mm[Hg] Dr. Davdi Sy Work Phone: [facility] 01-21-2023 14:13-0500 Heart rate 88 /min Dr. David Sy Work Phone: [facility] 01-21-2023 14:13-0500 Respiratory rate 18 /min Dr. David Sy Work Phone: [facility] 01-21-2023 14:13-0500 Systolic blood pressure 110 mm[Hg] Dr. David Sy Work Phone: [facility] 10-13-2022 11:41-0500 Body height 162.[address] David Sy Work Phone: [facility] 08-07-2022 07:06-0400 Body height 162.[address] David Sy Work Phone: [facility] Work Phone: 08-07-2022 07:06-0400 Body mass index (BMI) [Ratio] 23.6 kg/m2 Dr. David Sy Work Phone: [facility] 08-07-2022 07:06-0400 Body weight 68.[address] David Sy Work Phone: [facility] Work Phone: 08-07-2022 07:06-0400 Body weight 62.[address] David Sy Work Phone: [facility] 08-07-2022 07:06-0400 Diastolic blood pressure 68 mm[Hg] Dr. David Sy Work Phone: [facility] 08-07-2022 07:06-0400 Heart rate 73 /min Dr. David Sy Work Phone: [facility] 08-07-2022 07:06-0400 Respiratory rate 18 /min Dr. David Sy Work Phone: [facility] 08-07-2022 07:06-0400 SaO2% (BldA) [Mass fraction] 97 % Dr. David Sy Work Phone: [facility] 08-07-2022 07:06-0400 Systolic blood pressure 157 mm[Hg] Dr. David Sy Work Phone: [facility] 08-06-2022 08:46-0400 Body mass index (BMI) [Ratio] 25.7 kg/m2 Dr. David Sy Work Phone: [facility] Work Phone: 05-07-2022 11:27-0400 Body height 162.[address] David Sy Work Phone: [facility] Work Phone: 05-07-2022 11:27-0400 Body mass index (BMI) [Ratio] 25.7 kg/m2 Dr. David Sy Work Phone: [facility] Work Phone: 05-07-2022 11:27-0400 Body weight 68.[address] David Sy Work Phone: [facility] Work Phone: 05-07-2022 11:27-0400 Diastolic blood pressure 78 mm[Hg] Dr. David Sy Work Phone: [facility] Work Phone: 05-07-2022 11:27-0400 Heart rate 82 /min Dr. David Sy Work Phone: [facility] Work Phone: 05-07-2022 11:27-0400 Respiratory rate 18 /min Dr. David Sy Work Phone: [facility] Work Phone: 05-07-2022 11:27-0400 SaO2% (BldA) [Mass fraction] 94 % Dr. David Sy Work Phone: [facility] Work Phone: 05-07-2022 11:27-0400 Systolic blood pressure 132 mm[Hg] Dr. David Sy Work Phone: [facility] Work Phone: Encounters Encounter Date Encounter Type Care Provider Facility Start: 05-09-2025 End: 05-09-2025 Patient encounter procedure Katelynn BRAGA -[facility] Work Phone: Start: 05-09-2025 End: 05-09-[address] Tyrel Sy MD Work Phone: [facility] Work Phone: Start: 05-09-2025 End: 05-09-2025 ambulatory Katelynn Key Facility:[facility] Start: 02-22-[address] Pablo West MD -[facility] Start: 02-22-2025 End: 02-22-2025 ambulatory Tyrel Sy Facility:[facility] Start: 02-22-2025 End: 02-22-[address] Pablo West MD -[facility] Work Phone: Start: 01-16-2025 End: 01-16-[address] Jameel Anne MD -[facility] Work Phone: Start: 01-16-2025 End: 01-16-2025 ambulatory Tyrel Sy Facility:[facility] Start: 12-26-2024 End: 12-26-2024 ambulatory Tyrel Sy Facility:[facility] Start: 11-17-2024 End: 11-17-2024 ambulatory Katelynn Key Facility:[facility] Start: 11-07-2024 ambulatory Charlie Corcoran Facility :[facility] Start: 11-06-2024 ambulatory Nikko Berg Fac ility:[facility] Start: 11-06-2024 End: 11-07-2024 Evaluation and management of inpatient Nikko Berg Facility:[facility] Start: 10-24-2024 End: 10-24-2024 [facility] Start: 08-22-2024 [facility] Start: 08-03-2024 End: 08-03-2024 ambulatory [facility] Facility:[facility] Start: 06-22-2024 End: 06-22-2024 Emergency department patient visit Steven Georgesne Facility: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 David Sy Work Phone: [facility] Work Phone: Start: 02-03-2024 End: 02-03-[address] David Sy Work Phone: [facility] Work Phone: Start: 02-03-2024 End: 02-03-[address] David Sy Work Phone: [facility] Start: 02-02-2024 ambulatory Leticia Puga RN NURSE O N CALL Comment on above: General Weakness Start: 01-25-[address] Kyler Sy Work Phone: [facility] Start: 01-25-2024 End: 01-25-[address] David Sy Work Phone: [facility] Work Phone: Start: 01-19-2024 End: 01-20-2024 Evaluation and management of inpatient DEYANIRA REILLY Facility:[facility] Start: 01-14-2024 Patient encounter procedure [facility] Provider [facility] Start: 01-13-2024 Patient encounter procedure [facility] Provider [facility] Start: 01-13-2024 Telephone encounter Kei kellogg APRN.CNP Work Phone: [facility] Comment on above: Cardiac clearance ne eded Cardiac Clearance Start: 01-12-2024 End: 01-12-2024 Admission to establishment Pst [place] 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); S/P coronary artery stent placement; Essential hypertension; Mixed hyperlipidemia; Centrilobular emphysema (HCC); Gastroesophageal reflux disease, unspecified whether esophagitis present; Iron deficiency anemia, unspecified iron deficiency anemia type; Bilateral carotid artery stenosis; Marijuana use; Chest pain, unspecified type Start: 01-12-2024 End: 01-12-2024 Preprocedural examination done Pst 1 [facility] Work Phone: Start: 01-10-2024 Encounter for other preprocedural examination DEYANIRA REILLY [facility] Start: 01-10-2024 Preprocedural examination done Pst 1 [facility] Work Phone: Start: 12-14-2023 End: 12-14-2023 ambulatory DEYANIRA REILLY Facility[facility] Start: 12-03-2023 End: 12-03-2023 ambulatory DEDE SANTA Facility:[facility] Start: 12-03-2023 End: 12-03-2023 ambulatory [facility] Facility:[facility] Start: 11-16-2023 Non-patient / Non-visit Dr. Alejandra Sy Work Phone: [facility] Start: 11-05-2023 End: 11-05-2023 ambulatory TYREL SY Facility:[facility] Start: 11-05-2023 End: 11-05-2023 Subsequent hospital visit by physician Sampson [facility] (I-Stat) Work Phone: Cat Scan Comment on above: Occlusion and stenos is of unspecified carotid artery [I65.29] Start: 10-20-2023 End: 10-20-[address] David Sy Work Phone: [facility] Work Phone: Start: 10-20-2023 End: 10-20-[address] David Sy Work Phone: [facility] Work Phone: Start: 10-19-2023 End: 10-19-2023 Office outpatient new 45 minutes Deyanira Reilly MD Work Phone: [facility] Comment on above: Bilateral carotid ar mitchel stenosis (Primary Dx); Occlusion and stenosis of unspecified carotid artery Start: 10-19-2023 End: 10-19-2023 ambulatory DEYANIRA REILLY Facility:[facility] Start: 10-14-2023 End: 10-14-2023 ambulatory TYREL SY Facility:[facility] Start: 10-11-2023 Telephone encounter Isis Lewis APRN.CNP Work Phone: [facility] Comment on above: Results Start: 10-11-2023 End: 10-11-2023 ambulatory TYREL SY Facility:[facility] Start: 10-11-2023 End: 10-11-2023 Subsequent hospital visit by physician [facility] Work Phone: Nuclear Medicine Comment on above: 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 David Sy Work Phone: [facility] Work Phone: Start: 09-10-2023 End: 09-10-[address] David Sy Work Phone: 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 David Sy Work Phone: [facility] Work Phone: Start: 07-28-2023 End: 07-28-[address] David Sy Work Phone: [facility] Start: 05-24-2023 End: 05-24-[address] David Sy Work Phone: [facility] Work Phone: Start: 05-14-2023 End: 05-14-[address] David Sy Work Phone: [facility] Work Phone: Start: 05-11-2023 End: 05-11-[address] David Sy Work Phone: [facility] Work Phone: Start: 05-05-[address] Deven Sy [facility] Work [facility]: Start: 05-05-2023 End: 05-05-2023 Non-patient / Non-visit Dr. David Sy Work Phone: [facility] Start: 05-05-2023 End: 05-05-2023 Admission to same day surgery center Dr. David Sy Work Phone: [facility]-Endoscopy Start: 05-05-2023 End: 05-05-[address] David Sy Work Phone: [facility] Work Phone: Start: 04-30-2023 Non-patient / Non-visit Dr. Alejandra Sy Work Phone: [facility] Start: 04-30-2023 End: 04-30-[address] David Sy Work Phone: [facility] Work Phone: Start: 04-30-2023 End: 04-30-[address] David Sy Work Phone: [facility]-Cardiovascular Services Start: 04-28-2023 End: 04-28-[address] David Sy Work Phone: [facility] Start: 04-21-2023 End: 04-21-[address] David Sy Work Phone: [facility] Work Phone: Start: 04-21-2023 End: 04-21-[address] David Sy Work Phone: [facility]-Laboratory Start: 02-19-2023 End: 02-19-[address] David Sy Work Phone: [facility] Work Phone: Start: 02-19-2023 End: 02-19-[address] David Sy Work Phone: [facility] Start: 02-19-2023 End: 02-19-[address] Davdi Sy Work Phone: [facility] Work Phone: Start: 02-19-2023 End: 02-19-[address] David Sy Work Phone: [facility]-Medical Out Start: 02-05-2023 End: 02-05-[address] David Sy Work Phone: [facility] Work Phone: Start: 02-05-2023 End: 02-05-[address] David [facility] Start: 02-02-2023 Non-patient / Non-visit Dr. Alejandra Sy Work Phone: [facility] Start: 02-02-2023 End: 02-02-[address] David Sy Work Phone: [facility] Work Phone: Start: 02-02-2023 End: 02-02-[address] David Sy Work Phone: [facility]-Cardiovascular Services Start: 01-21-2023 End: 01-21-[address] David Sy Work Phone: [facility] Start: 01-18-2023 End: 01-18-[address] David Sy Work Phone: [facility] Start: 01-11-2023 End: 01-11-[address] David Sy Work Phone: [facility] Work Phone: Start: 01-11-2023 End: 01-11-[address] David Sy Work Phone: [facility] Start: 01-07-2023 Non-patient / Non-visit Dr. Alejandra Sy Work Phone: [facility] Start: 10-29-2022 End: 10-29-[address] David Sy Work Phone: [facility] Work Phone: Start: 10-29-2022 End: 10-29-[address] David Sy [facility] Start: 10-20-2022 End: 10-20-[address] David Sy Work Phone: [facility]-Laboratory Start: 10-13-2022 End: 10-13-[address] David Sy Work Phone: [facility] Work Phone: Start: 10-13-2022 End: 10-13-[address] David Sy Work Phone: [facility] Start: 10-05-2022 End: 10-05-[address] David Sy [facility] [place] Start: 08-18-2022 End: 08-18-[address] David Sy Work Phone: [facility] Work Phone: Start: 08-18-2022 End: 08-18-[address] David Sy Work Phone: [facility]-Outpatient Bone Densitometry Start: 08-08-2022 Non-patient / Non-visit Dr. Alejandra Sy Work Phone: [facility] [employer] Start: 08-07-2022 End: 08-07-2022 Admission to same day surgery center Dr. David Sy Work Phone: 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 David Sy Work Phone: [facility] Work Phone: Start: 08-06-2022 Non-patient / Non-visit Dr. Alejandra Sy Work Phone: [facility] Start: 08-05-2022 Non-patient / Non-visit Dr. Alejandra Sy Work Phone: [facility] Start: 08-04-2022 End: 08-04-[address] David yS Work Phone: [facility] Work Phone: Start: 08-04-2022 End: 08-04-[address] David Sy Work Phone: [facility]-Pulmonary Services/Neurology Start: 07-21-2022 Non-patient / Non-visit Dr. Alejandra Sy Work Phone: [facility] Start: 07-13-2022 End: 07-13-[address] David Sy [facility] Start: 07-08-2022 End: 07-08-[address] David Sy Work Phone: [facility] Start: 07-07-2022 End: 07-07-[address] David Sy Work Phone: [facility] Start: 06-02-2022 End: 06-02-[address] David Sy Work Phone: [facility] Start: 05-22-2022 Non-patient / Non-visit Dr. Alejandra Sy Work Phone: [facility] Start: 05-22-2022 End: 05-22-[address] David Sy Work Phone: [facility]-Cardiovascular Services Start: 05-19-2022 Non-patient / Non-visit Dr. Alejandra Sy Work Phone: [facility] Start: 05-19-2022 End: 05-19-[address] David Sy Work Phone: [facility]-Cardiovascular Services Start: 05-07-2022 End: 05-07-[address] David Sy Work Phone: [facility] Start: 05-06-[address] Kyler Sy Work Phone: [facility]-Physical Therapy Start: 04-06-2022 End: 04-06-2022 Patient encounter procedure [facility] Start: 01-10-2018 Ambulatory Jonatan Osuna [facility] ility:[facility] Start: 01-10-2018 End: 01-10-2018 Ambulatory JONATAN Looney [facility] ital Procedures Date Procedure Procedure Detail Performing Clinician Start: 02-22-[address] Tyrel Sy MD Work Phone: Start: 02-22-2025 Total iron binding capacity measurement Dr. Tyrel Sy MD Work Phone: Start: 01-16-2025 Ultrasound elastogra phy of liver Dr. Tyrel Sy MD Work Phone: Start: 08-03-[address] fraction Dr. Tyrel Sy MD Work Phone: Start: 08-03-2024 Measurement of renal function Dr. Tyrel Sy MD Work Phone: Comment on above: GFR Calc Start: 03-30-2024 Blood disorder - ini tial assessment Dr. Tyrel Sy MD Work Phone: Start: 02-15-2024 CT of head without contrast Dr. David Sy Work Phone: Start: 01-19-2024 Antibody screen DEYANIRA GREEN Comment on above: Order Comment: Speci men Type: BLOOD SPECIMEN Ordering Facility: [facility] Address: [address] [place] [address] Performed By: #### T SCR #### [facility] CLIA [id number] [address] Start: 01-12-2024 Antibody screen DEYANIRA GREEN Comment on above: Order Comment: Speci men Type: BLOOD SPECIMEN Ordering Facility: [facility] Address: [address] [place] [address] Performed By: #### T [id number] #### [facility] CLIA [id number] [address] Start: 11-05-2023 Ct angiography head w/contrast/noncontrast Deyanira Reilly MD Work Phone: Start: 11-05-2023 Ct angiography neck w/contrast/noncontrast Deyanira Reilly MD Work Phone: Start: 10-11-2023 Myocardial spect multiple studies Isis Lewis APRN.MUSIC MINISTER Work Phone: Start: 09-10-2023 MRI of small intestine Dr. David Sy Work Phone: Start: 05-05-[address] Deven Sy Work Phone: Start: 02-19-2023 CT of chest and abdomen Dr. David Sy Work Phone: Start: 02-05-2023 Plain chest X-ray Dr. Milton Sy Work Phone: Start: 10-05-2022 Complete x-ray serie s of lumbar spine with bending views Dr. David Sy Work Phone: Start: 08-18-2022 Dual energy X-ray absorptiometry Dr. David Sy Work Phone: Start: 08-18-2022 Screening mammography Kat Sy Work Phone: Start: 07-07-2022 Plain chest X-ray Dr. Milton Sy Work Phone: Start: 05-19-2022 Cardiovascular stres s test using pharmacologic stress agent Dr. David Sy Work Phone: Start: 04-06-2022 X-ray of cervical spine Start: 05-22-2019 History of placement of stent for coronary artery disease S/P coronary artery stent placement Dede Santa MD Work Phone: Start: 04-11-2018 Colonoscopy eDde meredith MD Work Phone: Start: 07-08-2017 History of coronary artery bypass grafting S/P CABG x 4 Dede Santa MD Work Phone: Start: 01-27-2016 History of placement of stent for coronary artery disease History of coronary artery stent placement Comment on above: PCI-Mid BMS-RCA w/ 2 .5 x 18 mm Multi Link Vision w/ 2.5 x 18 mm Mini-Vision Stent 02/2007; PCI-SJ-OM1 w/ 2.25 x 18 mm and 2.25 x 22 mm Resolute 01/27/2016 Start: 06-11-2011 Colonoscopy Isis fitzpatrick MASTER OCEAN.MUSIC MINISTER Work Phone: Start: 04-03-2007 History of coronary artery bypass grafting H/O coronary artery bypass surgery Comment on above: CABG x 4 CALIX-LAD, S VG-OM1, sequential SVG-Distal RCA and RPDA 04/03/2007 [address]ost[address]ium diffic[address] e detection Dr. David Sy Work Phone: [facility] (FAITH) Dr. Alejandra Sy Work Phone: [facility] (FAITH) Dr. Alejandra Sy Work Phone: History of carotid endarterectomy S/P carotid endarterectomy Isis Best MASTER OCEAN.MUSIC MINISTER Work Phone: History of coronary artery bypass grafting S/P CABG x 4 Isis Best MASTER OCEAN.MUSIC MINISTER Work Phone: History of placement of stent for coronary artery disease S/P coronary artery stent placement Pst 1 History of placement of stent for coronary artery disease S/P coronary artery stent placement Isis Best MASTER OCEAN.MUSIC MINISTER Work Phone: Laboratory test resu lt abnormal Abnormal laboratory test Lactoferrin measurement Dr. David Sy Work Phone: [facility] parasites identification Dr. David Sy Work Phone: [facility] parasites identification Dr. David Sy Work Phone: Plan of Treatment Date Care Activity Detail Author Start: 06-05-2031 Urine microalbumin profile DTa P,Tdap,Td Vaccine (2 - Td or Tdap) [facility] Start: 06-16-2025 BP Controlled (<130/80) BP Controlle d (<130/80) [facility] Start: 02-14-2025 BP Controlled (<130/80) BP Controlle d (<130/80) [facility] Start: 01-12-2025 BP Controlled (<130/80) BP Controlle d (<130/80) [facility] Start: 12-03-2024 Hepatitis B surface antibody level LDL Cholesterol [facility] Start: 10-19-2024 BP Controlled (<130/80) BP Controlle d (<130/80) [facility] Start: 10-01-2024 BP Controlled (<130/80) BP Controlle d (<130/80) [facility] Start: 09-03-2024 BP Controlled (<130/80) BP Controlle d (<130/80) [facility] Start: 07-30-2024 Influenza vaccination Influenza Vacc ine (#1) [facility] Start: 06-02-2024 Hemoglobin A1c measurement HbA1C [facility] Start: 11-29-2023 Advance Directive Discussion Advance Directive Discussion [facility] Start: 11-29-2023 Behavioral Health Screening Behavioral Health Screening [facility] Start: 11-29-2023 Depression Assessment Depression Ass essment [facility] Start: 11-16-2023 Patient referral [facility] Work Phone: Start: 10-19-2023 End: 01-18-2024 CREATININE BLD CREATININE BLD Lab Routine Bilateral carotid artery stenosis Expected: 10/19/2023, Expires: 01/18/2024 [facility] Work Phone: Comment on above: Expected: 10/19/2023 , Expires: 01/18/2024 Start: 09-10-2023 Following clinical p athway protocol [facility] Start: 07-30-2023 Covid-19 Vaccine ( season) Covid-19 Vaccine () [facility] Start: 07-30-2023 Influenza vaccination Influenza Vacc ine (#1) [facility] Start: 07-28-2023 Nicotine measurement [facility] Start: 05-05-2023 Colonoscopy w/biopsy single/multiple COLONOSCOPY AND BIOPSY [facility] Start: 05-05-2023 Colsc flexible w/con trol bleeding any method COLONOSCOPY W/CONTROL BLEED [facility] Start: 05-05-2023 Egd transoral biopsy single/multiple EGD BIOPSY SINGLE/MULTIPLE [facility] Start: 05-05-2023 Patient discharge [facility] Start: 02-19-2023 Iv infusion therapy prophylaxis/dx ea hour THER/PROPH/DIAG IV INF ADDON [facility] Start: 02-19-2023 Iv infusion therapy/prophylaxis /dx 1st to 1 hr THER/PROPH/DIAG IV INF INIT [facility] Start: 11-29-2022 Advance Directive Discussion Advance Directive Discussion [facility] Start: 11-29-2022 [facility] Start: 10-20-2022 General foods mix RA ST test [facility] Work Phone: Start: 10-20-2022 Immunoglobulin measurement [facility] Work Phone: Start: 10-20-2022 Procedure [facility] Work Phone: Start: 10-20-2022 Serum immunofixation [facility] Work Phone: Start: 10-20-2022 [facility] Work Phone: Start: 08-18-2022 Dual energy X-ray absorptiometry Dexa Bone Density Study [facility] Work Phone: Start: 07-07-2022 Nicotine measurement [facility] Work Phone: Start: 03-14-2022 Pneumococcal Vaccine : 65+ (2 - PCV) Pneumococcal Vaccine: 65+ (2 - PCV) [facility] Start: 03-14-2022 Pneumococcal Vaccine : 65+ (2 of 2 - PCV) Pneumococcal Vaccine: 65+ (2 of 2 - PCV) [facility] Start: 2021 Bone Density Screening Bone Density Screening [facility] Start: 2021 Screening for osteoporosis Bone Dens ity Screening [facility] Start: 06-06-2021 Hemoglobin A1c/Hemoglobin.total in Blood HbA1C [facility] Start: 05-22-2021 Covid-19 Vaccine (3 - Moderna series) Covid-19 Vaccine (3 - Moderna series) [facility] [facility] Start: 04-28-2020 Hepatitis B surface antibody level LDL Cholesterol [facility] Start: 04-11-2019 Colonoscopy Colonoscopy [facility] Start: 04-11-2019 Colorectal Cancer Screening Colorectal Cancer Screening [facility] Start: 2016 Hepatitis B Vaccine (1 of 3 - Risk 3-dose series) Hepatitis B Vaccine (1 of 3 - Risk 3-dose series) [facility] Start: 2016 RSV Vaccine (1 - 1-d ose 60+ series) RSV Vaccine (1 - 1-dose 60+ series) [facility] Start: 03-28-2013 Mammography Mammogram Screening [facility] Start: 03-28-2013 Screening for malign ant neoplasm of breast Mammogram Screening [facility] Start: 12-13-2012 3 comp foot exam completed Diabetic Foot Exam [facility] Start: 12-13-2012 Diabetic foot examination Diabetic F oot Exam [facility] Start: 10-13-2012 Glaucoma screening Dilated Retinal E xam [facility] Start: 10-13-2012 Hepatitis C antibody , confirmatory test Dilated Retinal Exam [facility] Start: 06-11-2012 Colonoscopy Colonoscopy [facility] Start: 06-11-2012 Colorectal Cancer Screening Colorectal Cancer Screening [facility] Start: 06-11-2012 Screening for malign ant neoplasm of colon [facility] Start: 2006 Shingrix Vaccine (1 of 2) Thomas grix Vaccine (1 of 2) [facility] Start: 2001 Cologuard (FIT-DNA) Cologuard (FIT-D NA) [facility] Start: [address] COLONOGRAPHY [facility] Start: 2001 Fecal Occult Blood Fecal Occult Bloo d [facility] Start: 2001 Screening for malign ant neoplasm of colon [facility] Start: 2001 SIGMOIDOSCOPY SIGMOIDOSCOPY [facility] Start: 1986 Zoledronic acid therapy Alpha- 1 Antitrypsin Deficiency Screening [facility] Start: 1975 Urine microalbumin profile DTa P,Tdap,Td Vaccine (1 - Tdap) [facility] Start: 1974 Annual PCP Team [employer] lorelei Disease Visit Annual PCP Team Chronic Disease Visit [facility] Start: 1974 Anxiety Screening Anxiety Screening [facility] Start: 1974 Depression Screening Depression Scre ening [facility] Start: 1974 Hepatitis C Screening Hepatitis C [facility] Start: 1974 Hepatitis C screening Hepatitis C [facility] Start: 1966 Hepatitis B screening Urine Albumin:Creatinine Ratio [facility] Cardiac event recording [facility] Work Phone: Cardiac event recording [facility] Clostridioides diffi cile DNA [Presence] in Unspecified specimen by HESHAM with probe detection [facility] Work Phone: Colonoscopy [facility] Cotinine measurement [facility] Work Phone: Cotinine measurement [facility] End: 11-17-2024 CTA HEAD W IVCON CTA HEAD W IVCON Radiology Routine Occlusion and stenosis of unspecified carotid artery 1 Occurrences starting 10/19/2023 until 11/17/2024 [facility] Work Phone: Comment on above: 1 Occurrences starti ng 10/19/2023 until 11/17/2024 End: 11-17-2024 CTA NECK W IVCON CTA NECK W IVCON Radiology Routine Occlusion and stenosis of unspecified carotid artery 1 Occurrences starting 10/19/2023 until 11/17/2024 [facility] Work Phone: Comment on above: 1 Occurrences starti ng 10/19/2023 until 11/17/2024 ECG B/O W INTERP (ME D OFFICE) ECG B/O W INTERP (MED OFFICE) ECG Routine Presence of stent in left circumflex coronary artery Ordered: 09/03/2023 [facility] Work Phone: Comment on above: Ordered: 09/03/2023 Echocardiography ECHO Cardiology Routine Presence of stent in left circumflex coronary artery 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 Work Phone: Fat [Presence] in Stool [facility] Work Phone: Gastrointestinal pat hogens panel - Stool by HESHAM with probe detection [facility] Work Phone: Lactoferrin [Presenc e] in Stool by Immunoassay [facility] Work Phone: Lipid 1996 panel - S rene or Plasma [facility] Work Phone: Nicotine [Mass/volum e] in Serum or Plasma [facility] Work Phone: Nicotine [Mass/volum e] in Serum or Plasma [facility] Ova and Parasites Ova and Parasites [facility] Work Phone: Ova and parasites identified in Unspecified specimen by Light microscopy [facility] Work Phone: Patient referral [facility] Work Phone: Protein measurement [facility] Work Phone: Protein measurement [facility] US Carotid arteries [facility] Work Phone: US Carotid arteries [facility] End: 02-14-2025 US Carotid arteries - bilateral US CAROTID ARTERIES [facility] Lab Routine S/P carotid endarterectomy Bilateral carotid artery stenosis 1 Occurrences starting 02/15/2024 until 02/14/2025 [facility] Work Phone: Comment on above: 1 Occurrences starti ng 02/15/2024 until 02/14/2025 [facility] Immunizations Immunization Date Immunization Notes Care Provider Fa isabel 03-14-2021 pneumococcal polysaccharide vaccine, 23 trudy Santa MD Work Phone: [facility] 10-16-2020 influenza virus vacc ine, unspecified formulation Dede Santa MD Work Phone: [facility] 08-18-2012 influenza virus vacc ine, unspecified formulation Dede Santa MD Work Phone: [facility] 08-29-2011 influenza virus vacc ine, unspecified formulation Dede Santa MD Work Phone: [facility] 04-12-2007 pneumococcal polysaccharide vaccine, 23 valbob Santa MD Work Phone: [facility] 03-14-2007 pneumococcal polysaccharide vaccine, 23 trudy Santa MD Work Phone: [facility] Payers Date Payer Category Payer Unknown [id number] 2024 Self-pay [id number] 2023 Unknown [id number] 2022 Medicare [facility] MEDICARE [facility] DUAL COMPLETE HMO POS SNP [id number] 2022-Present [phone] [address] [place] [address] Medicare [id number] 2022 Unknown [id number] 2020 Medicaid [facility] MEDICAID MYC ARE [facility] MEDICAID [id number] 2020-Present [phone] [address] [place] [address] Medicaid [id number] 2020 Unknown [id number] 1959 Medicare [id number] Medicare [id number] Unknown [id number] Unknown [id number] Unknown [id number] Unknown [id number] Unknown [id number] Unknown [id number] Unknown [id number] Unknown [id number] Unknown [id number] Unknown [id number] [id number] Unknown [id number] Unknown [id number] Unknown [id number] Unknown [id number] [id number] Unknown [id number] [id number] Unknown [id number] [id number] Unknown [id number] Social History Date Type Detail Facility Start: 11-06-2021 End: 10-20-2023 Tobacco smoking status NHIS Unknown if ever smoked [facility] Start: 03-14-2019 None [facility] Start: 03-14-2019 With Family [facility] Start: 1955 Sex Assigned At Female [facility] Start: 04-08-2018 Cigarettes [facility] Start: 09-03-2023 End: 01-12-2024 Tobacco smoking status NHIS Ex-smoker [facility] End: 03-01-2007 History of tobacco use Current smoker [facility] End: 03-01-2007 History of tobacco use Cigarette Smoker [facility] Start: 09-03-2023 End: 02-15-2024 Cigarettes smoked current (pack per day) - Reported 0.5 [facility] Start: 09-03-2023 End: 01-12-2024 Tobacco use and exposure Smokeless tobacco non-user [facility] Start: 09-03-2023 End: 06-16-2024 Alcohol intake Current non-drinker of alcohol (finding) [facility] Start: 09-03-2023 End: 02-15-2024 Tobacco use panel [facility] PHQ2 Score 0 [facility] Start: 09-03-2023 Tobacco Comment 08-22-20 Strong tobacco smell present [facility] Start: 1955 Sex Assigned At Not on file [facility] Start: 01-12-2024 Tobacco Comment 01/12/24 Strong tobacco smell present [facility] Start: 11-06-2024 Tobacco smoking status NHIS Smokes tobacco daily (finding) [facility] NEGATED: Highlighted row [facility] Medical Equipment Procedure Code Equipment Code Equipment Origin al Text Equipment Identifier Dates Anchr Sut 2 Qanc hr+ Gii Ethbnd - [id number] Start: 04-26-2013 Comment on above: Description: GII Pedro ckanchor Plus use with insulin pen DAILY DIRECTED Start: 12-18-2020 Comment on above: use with insulin pen DAILY DIRECTED Patch Xenosure Bovine Pericardial Tissue 8x.8cm Vascular Sterile - [id number] Start: 01-19-2024 Goals Date Patient Goal Desired Activity /State Personal health goal Mental Status Date Assessment Result Facility 05-25-2024 Cognitive function Voice/Name [facility] Work Phone: 02-17-2024 Cognitive function Voice/Name [facility] Work Phone: 09-10-2023 Cognitive function Voice/Name [facility] Work Phone: 05-05-2023 Cognitive function Voice/Name;Touch/Shaki ng [facility] Work Phone: 02-19-2023 Cognitive function Voice/Name [facility] Work Phone: Clinical Notes 04-03-2007 to 02-22-2025 Note Date & Type Note Facility 02-22-2025 Evaluation note Diagnosis Onset Date Resolution Lung cancer chronic February 22, 025 12:57pm Iron deficiency anemia resolved [facility] 2024 12:57pm [facility] Work Phone: [phone] Evaluation note* Diagnosis Onset Date Resolution Status Admit Date Lung cancer chronic February 22, 025 12:57pm Iron deficiency anemia resolved [facility] 2024 12:57pm Esophageal dysphagia acute May 09, 2025 10:38am Colitis chronic May 09 10:38am Fatty liver chronic May 09 10:38am [facility] Work Phone: 1(127) 803-420812-10-2024 [facility] Medical Records Department [address] [place] [address] Discharge Summary 11/07/24 1845 MR#: [id number] Acct: [id number] Name: KAROLINA CANADA Rep #: [id number] : [id number] 69 From: Randi Iverson DO PCP: Dr. Tyrel Sy MD Status:ADM IN Location: [address] Providers Date of Admission: 11/06/24 Date of Discharge: 11/07/24 Primary Care Physician: Dr. Tyrel Sy MD Consultations 11/06/24 17:43 Consult: Gastroenterology Routine Consulting Provider: [facility] Reason for Consult: acute onset odynophagia w/ dysphagia EMERGENT Consult: No MD Notified: Yes Date Notified: 11/06/24 Time Notified: 17:56 Method of Notification: Text Reason For Visit: ODYNOPHAGIA WITH DYSPHAGIA Diagnosis Discharge Diagnosis (1) Esophageal dysphagia: Status: Acute Code(s): R13.19 - Other dysphagia (2) Odynophagia: Status: Acute Code(s): R13.10 - Dysphagia, unspecified Medications at Discharge Home Medications aspirin 81 mg chewable tablet 81 mg PO DAILY@0800 [facility] 01/25/16 nitroglycerin 0.4 mg sublingual tablet 0.4 mg sublingual Q5-15M PRN chest pain #25 tabs 11/26/20 escitalopram oxalate 20 mg tablet 20 mg PO DAILY 11/06/21 atorvastatin 80 mg tablet 80 mg PO QDAY cholesterol #90 tabs 05/07/22 isosorbide dinitrate 30 mg tablet 30 mg PO DAILY 08/12/22 metoprolol succinate 50 mg tablet,extended release 24 hr 50 mg PO DAILY #90 tabs 01/21/23 ranolazine 1,000 mg tablet,extended release,12 hr 1,000 mg PO DAILY #180 tabs 01/17/24 sucralfate 1 gram tablet (Carafate) 1 g PO BID #14 tabs 06/22/24 famotidine 20 mg tablet 20 mg PO BID #120 TABLETS 10/03/24 ezetimibe 10 mg tablet (Zetia) 10 mg PO DAILY #90 tabs 11/02/24 fluconazole 100 mg tablet 100 mg PO DAILY #7 tabs 11/07/24 metformin 1,000 mg tablet 1,000 mg PO BID #60 tabs 11/07/24 nystatin 100,000 unit/mL oral suspension 400,000 unit (4 mL) PO 4X/DAY 14 days #224 mL 11/07/24 Hospital Course Operations None Procedures EGD, EKG and - (Chest x-ray/CTA chest) Summary of Care Provided Minutes Spent on Discharge: 37 Hospital Course: Patient is a 69-year-old white female who presented to the emergency department at [facility] on 11/06/2024 with a chief complaint of odynophagia. She reported that she had about a 4- day history of odynophagia with difficulty swallowing and painful swallowing. She denied any previous history like this. She reported pain was in the mid to upper esophagus while eating or drinking anything. She stated she has been able to get some liquids down but had not been able to get any food down for the time period that she been symptomatic. She does have a history of tobacco abuse but is not on any inhalers. Vital signs on presentation showed temperature of 97.7, heart rate 84, respirate 16, blood pressure was 114/61 and pulse ox was 95% on room air. CBC was overtly unremarkable with a stable hemoglobin. She did have an elevated white count. Coags were normal. Chemistry panel was overtly unremarkable. She did have a hyperglycemia with a blood glucose level of 158 and hemoglobin A1c of 8.6. Chest x-ray showed no acute abnormalities. D- dimer was obtained due to chest pain and found to be elevated and CTA was subsequently performed without any evidence of PE, prior CABG was noted with coronary artery calcification found. She was admitted to medical floor placed on clear liquid diet and GI was consulted. EGD was performed on 11/07/2024 and showed esophageal plaques consistent with candidiasis, esophageal mucosal changes consistent with eosinophilic esophagitis and had some dilation in this area due to some narrowing with biopsies taken. Nystatin 4000 units p.o. 4 times daily for 10 days and fluconazole for total of 7 days were recommended at the time of discharge. We were going to trial a full liquid diet this evening and tomorrow morning but patient was adamant that she wanted go home. I did discuss this with Dr. Corcoran and he stated she was okay to discharge home as long as she did well with her diet this evening which she did. He plans on seeing her in the office later this week. Prescriptions for nystatin and fluconazole were sent to local pharmacy. She was also found to be diabetic with a hemoglobin A1c of 8.6. I did start her on metformin twice daily and asked her to follow-up closely with her primary care physician with regards to her diabetes. She is to follow- up with Dr. Corcoran at the end of the week. Patient was able to get all diagnostic procedures done more quickly than anticipated and symptoms improved more quickly than anticipated at the time of admission. Physical Exam Const alert, oriented x3, no apparent distress and no limitations; Negative for average body habitus, healthy appearing or well nourished Constitutional Narrative: Thin, upper (more content not included)...[facility]07-25-2024 NoteHNO ID: [id number] Author: KERI OSUNA APRN.SONAL Service: ? Author Type: Nurse Practitioner Type: Progress Notes Filed: 06/22/2024 11:26 Note Text: She came in with complaints of puking up blood. Patient says it started yesterday. Patient says she had picked again this morning and had blood in it again. Patient says is not a significant amount but this is a new change. At this time due to the significant patient history patient is being referred to the ER for more thorough evaluation. Patient was okay with this care plan and will go now.[facility]07-25-2024 History of Present illness Narrative* Keri Osuna APRN.CNP - 06/22/2024 11:25 AM EDT She came in with complaints of puking up blood. Patient says it started yesterday. Patient says shehad picked again this morning and had blood in it again. Patient says is not a significant amount but this is a new change. At this time due to the significant patient history patient is being referred to the ER for more thorough evaluation. Patient was okay with this care plan and will go now. [facility] NoteHNO ID: [id number] Author: DEDE SANTA MD Service: ? Author Type: Physician Type: Progress Notes Filed: 06/16/2024 15:52 Note Text: [facility] Department of Cardiovascular Medicine SECTION OF INTERVENTIONAL CARDIOLOGY OUTPATIENT VISIT DATE June 16, 2024 OUTPATIENT VISIT TYPE ESTABLISHED PRIMARY CARE PHYSICIAN: Tyrel Sy ([place]) [address] [place] [address] REFERRING PHYSICIAN: SELF CHIEF COMPLAINT: Patient presents with: CARD Follow Up 6 Month HISTORY OF PRESENT ILLNESS: Ms. Canada is a 68 year old female who presents today for follow-up visit. She has PMH of the DM, CAD (S/P CABG, PCI) HTN, HLP, and PAD (per patient has bilateral carotid artery stenosis/P endarterectomy of the right side. She mentioned that about 7 months ago has [facility] out side hospital and they did not do anything. Still waiting for the images to evaluate them (I asked her to bring the CD so I can evaluate it). She complains of fatigue and anemia. And she mentioned that has liver fibrosis ( possible cirrhosis and could be the reason for anemia ) She denies shortness of breath, syncope, and claudication. PAST CARDIAC HISTORY: See HPI PAST MEDICAL HISTORY Diagnosis Date Benign neoplasm of duodenum, jejunum, and ileum CAD (coronary artery disease) bilateral Carotid artery stenosis Cyst on right wrist Diabetes (HCC) Diarrhea HLD (hyperlipidemia) HTN (hypertension) Hx of cardiac cath Knee pain LA (myocardial infarction) (HCC) Nausea Nausea with vomiting [...] BX SPX 2004 Arthroscopy, knee, Rt. x3 2008 CABG, ARTERIAL, FOUR+ 2006 COLONOSCOPY W/BIOPSY SINGLE/MULTIPLE 06/11/2011 ESOPHAGOGASTRODUODENOSCOPY TRANSORAL DIAGNOSTIC [...] Types: Cigarettes Quit date: 03/01/2007 Years since quittin.3 Smokeless tobacco: Never Tobacco comments: 01/12/24 Strong tobacco smell present Vaping Use Vaping [...] nose, sneezing Steroids [Corticost* GI Upset deathly ill, joint pain Sulfa (Sulfonamide * Hives, Anaphylaxis yeast infections Tizanidine Hives Tramadol Vomiting MEDICATIONS: Current Outpatient Medications Medication Sig ranolazine SR (RANEXA) 1,000 mg tab ER 12 hr Take 1 tablet by mouth once daily. metoprolol succinate ER (TOPROL XL) 50 mg 24 hr tablet Take 1 tablet by mouth every afternoon. (more content not included)...[facility] 06-16-2024 History of Present illness Narrative* Dede Santa MD - 06/16/2024 3:02 PM EDT Images from the original note were not included. [facility] Department of Cardiovascular Medicine SECTION OF INTERVENTIONAL CARDIOLOGY OUTPATIENT VISIT DATE June 16, 2024 OUTPATIENT VISIT TYPE ESTABLISHED PRIMARY CARE PHYSICIAN: Tyrel Sy ([facility]) [address] [place] [address] REFERRING PHYSICIAN: SELF CHIEF COMPLAINT: Patient presents with: CARD Follow Up 6 Month HISTORY OF PRESENT ILLNESS: Ms. Canada is a 68 year old female who presents today for follow-up visit. She has PMH of the DM,CAD (S/P CABG, PCI) HTN, HLP, and PAD (per patient has bilateral carotid artery stenosis/P endarterectomy of the right side. She mentioned that about 7 months ago has [facility] out side hospital and they did not do anything. Still waiting for the images to evaluate them (I asked her to bring the CD so I can evaluate it). She complains of fatigue and anemia. And she mentioned that has liver fibrosis ( possible cirrhosis and could be the reason for anemia ) She denies shortness of breath, syncope, and claudication. PAST CARDIAC HISTORY: See HPI PAST MEDICAL HISTORY Diagnosis Date Benign neoplasm of duodenum, jejunum, and ileum CAD (coronary artery disease) bilateral Carotid artery stenosis Cyst on right wrist Diabetes (HCC) Diarrhea HLD (hyperlipidemia) HTN (hypertension) Hx of cardiac cath Knee pain LA (myocardial infarction) (HCC) Nausea Nausea with vomiting [...] knee, Rt. x3 2009 CABG, ARTERIAL, FOUR+ 2006 COLONOSCOPY W/BIOPSY SINGLE/MULTIPLE 06/11/2011 ESOPHAGOGASTRODUODENOSCOPY TRANSORAL DIAGNOSTIC 01/31/2010 EGD LAPS ABD PRTM&OMENTUM DX W/WO SPEC BR/WA SPX Laparoscopy x 3 PAST SURGICAL HISTORY OF 1984 gallbladder PAST SURGICAL HISTORY OF 1985 appendectomy PAST SURGICAL HISTORY OF carpal tunnel bilateral PAST SURGICAL HISTORY OF 1982 double hernia surgery PAST SURGICAL HISTORY OF 1992 hysterectomy PAST SURGICAL HISTORY OF 2016 Cardiac [...] Types: Cigarettes Quit date: 03/01/2007 Years since quittin.3 Smokeless tobacco: Never Tobacco comments: 01/12/24 Strong tobacco smell present Vaping Use Vaping [...] nose, sneezing Steroids [Corticost* GI Upset deathly ill, joint pain Sulfa (Sulfonamide * Hives, Anaphylaxis yeast infections Tizanidine Hives Tramadol Vomiting MEDICATIONS: Current Outpatient Medications Medication Sig ranolazine SR (RANEXA) 1,000 mg tab ER 12 hr Take 1 tablet by mouth once daily. metoprolol succinate ER (TOPROL XL) 50 mg 24 hr tablet Take 1 tablet by mouth every afternoon. ezetimibe (ZETIA) 10 mg tablet Take 1 tablet by mouth every afternoon. atorvastatin (LIPITOR) 80 mg tablet Take 1 tablet by mouth every afternoon. escitalopram oxalate (LEXAPRO) 20 mg tablet Take 20 mg by mouth every morning. famotidine (PEPCID) 20 mg tablet Take by mouth once daily. nitroglycerin sublingual (NITROQUICK) 0.4 mg SL tablet Dissolve 1 tablet under the tongue as needed. FOR CHEST PAIN. IF NO RELIEF CALL 911 glimepiride (AMARYL) 4 mg tablet Take 4 mg by mouth daily with breakfast. linagliptin (TRADJENTA) 5 mg tab Take 5 mg by mouth once daily. aspirin, enteric coated (ECOTRIN LOW STRENGTH) 81 mg EC tablet Take 1 tablet by mouth once daily. Current Facility-Administered Medications Medication Dose Route Frequency perflutren lipid microspheres 1.3 mL in NaCl (PF) 0.9% 10 mL injection (DEFINITY) INTRAVENOUS DIRECTED PRN sodium chloride 0.9 % (flush) 10 mL (BD POSIFLUSH) 10 mL INTRAVENOUS DIRECTED PRN REVIEW OF SYSTEMS: All 12 systems reviewed, all negative except what mentioned in HPI. PHYSICAL EXAMINATION: BP 125/69 Pulse 66 Wt 130 lb 9.6 oz (59.2kg) SpO2 100% General:well developed, thin Skin:warm and dry, pale Neck:no JVD, no carotid bruits Lungs:clear to auscultation Heart:regular rhythm and S1, S2 normal PV Pulses:pulses intact Abdomen:soft, non-tender Extremity: no swelling CARDIOVASCULAR MEDICINE TESTING: No Cardiovascular testing perfomed today. Last ECHO Result Conclusion ECHO Collected: 10/14/2023 10:08 AM (Final result) Impression: CONCLUSIONS: - Exam indication: CAD - The left ventricle is mildly dilated. Left ventricular systolic function is normal. EF = 58 5% (2D biplane) Grade I left ventricular diastolic dysfunction. - The right ventricle is normal in size. Right ventricular systolic function is normal. - There are no significant valvular abnormalities. - Exam was compared with the prior echocardiographic exam performed on 03/07/2021 (bout). * * * Final * * * There were no tests performed for review. IMPRESSION: Ms. Canada is a 68 year old female with PMH of the DM, CAD (S/P CABG, PCI) HTN, HLP, and PAD (perpatient has bilateral carotid artery stenosis/P endarterectomy of the right side. She mentioned that about 7 months ago has [facility] out side hospital and they did not do anything. Still waiting for the images to evaluate them (I asked her to bring the CD so I can evaluate it). She complains of fatigue and anemia. And she mentioned that has liver fibrosis ( possible cirrhosis and could be the reason for anemia ). PLAN AND RECOMMENDATIONS: ASSESSMENT/PLAN: 1. 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 Uncontrolled type 2 diabetes mellitus with hyperglycemia (HCC) - ICD9: 250.02, ICD10: E11.65 - Controlled - Continue current medications 3. Hyperlipidemia, unspecified hyperlipidemia type - ICD9: 272.4, ICD10: E78.5 - Controlled - Continue current medications - Counseled on healthy diet and regular exercise 4. Primary hypertension - ICD9: 401.9, ICD10: I10 - Controlled - Continue current medications - Recommend home blood pressure monitoring, to bring results to next visit - Encouraged sodium restriction, DASH or Mediterranean diet - Recommend regular aerobic exercise Dede Santa MD,[facility] Regional Section of Interventional Cardiology [facility], [address], [email or web address] documented in this encounterMary [facility]an Hospital03-19-2024 History of Present illness Narrative* Isis Best APRN.CNP - 02/15/2024 11:55 AM EDT Pt requests to see Single Pointed Operator in [place]. Referral placed as requested. Isis Best APRN.CNP documented in this encounterMary Rutan Hospital03-19-2024 NoteHNO ID: [id number] Author: ISIS BEST APRN.CNP Service: ? Author Type: Nurse Practitioner Type: Progress Notes Filed: 02/15/2024 11:56 Note Text: Pt requests to see Single Pointed Operator in [place]. Referral placed as requested. Isis Best APRN.[facility]NPCal[facility]03-19-2024 Instructions * Patient Instructions* Isis Best APRN.CNP - 02/15/2024 11:54 AM EDT Information on Stroke: 1. F.A.S.T: F - Facial Droop A - Arms: Raise both arms, one arm will drift downward S - Speech: Slurred or strange sounds when speaking T - Time: Call 911 immediately 2. If you have new or worsening stroke symptoms: Call 911 3. Examples of symptoms: A. Sudden weakness or numbness B. Sudden difficulty seeing C. Sudden confusion or slurred speech D. Sudden problems with balance, coordination E. Sudden severe headache, with no known cause F. Difficulty swallowing 4. Know your personal risks for stroke: Age, sex, race, family history, high cholesterol, alcohol intake, weight, inactive lifestyle, carotid or coronary artery disease. 5. Can you make changes in your personal risks? How? 6. Know what medications you are taking to avoid another stroke. documented in this encounterMary Rutan Hospital03-19-2024 NoteHNO ID: [id number] Author: ISIS BEST APRN.CNP Service: ? Author Type: Nurse Practitioner Type: Progress Notes Filed: 02/15/2024 11:54 Note Text: Karolina Canada 68 year old female S/P Right carotid endarterectomy PROCEDURE: R CEA by Dr. Reilly DATE: 01/19/24 SUBJECTIVE: Karolina Canada returns to the office today for post-op evaluation following her recent surgery. Pt reports that she is doing OK. Denies significant neck pain but admits to some discomfort as she's been healing. No bleeding or drainage from the incision. Swelling has pretty much resolved. Still with numbness and occasional tingling from around R eye down toward ear, to jaw line forward to chin, and down neck. No issues with swallow or voice. Appetite is normal for her. No issues with bowel/bladder. Has had some issues with dizziness for past ~10/14 days, for which she's seen her PCP. She's on iron infusions for anemia (had 1 last week and is due for her second) and had a CT of her brain just this morning at [facility]. No focal neuro s/s of TIA or stroke noted - no amaurosis, facial drooping, or weakness/loss of function in anextremity. EXAM: Neurological Exam: Normal; Awake, alert, oriented, pleasant, and appropriate; Strength and sensation grossly intact; Dizziness resolved at this time; Tongue midline, smile symmetric, voice strong, swallow intact Right Neck Incision: Clean, dry, well approximated, and well healed; No edema, erythema, ecchymosis, or drainage noted IMPRESSION: Stable post op; OK to gradually resume daily activities as tolerated; Continue work-up for dizziness with PCP; Will check for CT results; Will proceed with scheduled post-op Carotid US as discussed -- recommend US now, @6 months, @1 year, then continued annual surveillance; Will refer to Cardiology in [place] as requested PLAN: Will call with results and recommendations following first post-op imaging. Encouraged pt to call with any questions or concerns. The patient is currently taking a statin: Yes The patient is currently taking aspirin: Yes Isis Best APRN.[facility]03-19-2024 History of Present illness Narrative* Isis Best APRN.[facility] - 02/15/2024 10:46 AM EDT Karolina Canada 68 year old female S/P Right carotid endarterectomy PROCEDURE: R CEA by Dr. Reilly DATE: 01/19/24 SUBJECTIVE: Karolina Canada returns to the office today for post-op evaluation following her recent surgery. Pt reports that she is doing OK. Denies significant neck pain but admits to some discomfort as she's been healing. No bleeding or drainage from the incision. Swelling has pretty much resolved. Still with numbness and occasional tingling from around R eye down toward ear, to jaw line forward to chin, and down neck. No issues with swallow or voice. Appetite is normal for her. No issues with bowel/bladder. Has had some issues with dizziness for past ~10/14 days, for which she's seen her PCP. She's on iron infusions for anemia (had 1 last week and is due for her second) and had a CT of her brain just this morning at [facility]. No focal neuro s/s of TIA or stroke noted - no amaurosis, facial drooping, or weakness/loss of function in an extremity. EXAM: Neurological Exam: Normal; Awake, alert, oriented, pleasant, and appropriate; Strength and sensation grossly intact; Dizziness resolved at this time; Tongue midline, smile symmetric, voice strong, swallow intact Right Neck Incision: Clean, dry, well approximated, and well healed; No edema, erythema, ecchymosis, or drainage noted IMPRESSION: Stable post op; OK to gradually resume daily activities as tolerated; Continue work-up for dizziness with PCP; Will check for CT results; Will proceed with scheduled post-op Carotid US as discussed -- recommend US now, @6 months, @1 year, then continued annual surveillance; Will refer to Cardiologyin [place] as requested PLAN: Will call with results and recommendations following first post-op imaging. Encouraged pt to call with any questions or concerns. The patient is currently taking a statin: Yes The patient is currently taking aspirin: Yes Isis Best APRN.SONAL documented in this encounterMary [facility]an Hospital03-06-2024 Miscellaneous Notes* Telephone Encounter - Leticia Puga RN - 02/02/2024 6:08 PM EST Reason for Disposition [1] MODERATE weakness (i.e., interferes with work, school, normal activities) AND [2] persists >3 days Answer Assessment - Initial Assessment Questions [...] triage questions Protocols used: Weakness (Generalized) and Ckdolmy-PRDIN-PW she will call the office in the am for an appt. documented in this encounterMary Rutan Hospital02-22-2024 NoteHNO ID: [id number] Author: CINDY BANEGAS RN Service: Care Management Author Type: Registered Nurse Type: Care Mgt Progress Note Filed: 01/20/2024 14:03 Note Text: CARE MANAGEMENT DISCHARGE NOTE SERVICE DATE: January 20, 2024 SERVICE TIME: 2:02 PM Admission Date: 01/19/2024 LOS: 1 day Discharge Arrangement Discharge Arrangement: Home with Self Care Services Arranged Provider Name: NA Phone: NA Caregiver Assessment Caregiver is ready, willing and able to meet the patient's needs as recommended by the inter-professional team: No Caregiver needed Transportation Arrangements Transportation Arrangements: Car Date of Trip: 01/20/24 Destination: Home Handoff Communication: Handoff to: Primary Care Physician Primary Care Physician Name/Phone: Dr Sy [phone] Additional Information: Patient is discharging home with self care. Patient's niece to provide discharge transportation. SIGNATURE: Cindy Banegas RN PATIENT NAME: Karolina Canada DATE: January 20, 2024 TIME: 2:02 PM CONTACT #: [phone]02-22-2024 Note HNO ID: [id number] Author: DEYANIRA REILLY MD Service: General Surgery Author Type: Resident Type: Progress Notes Filed: 01/20/2024 10:27 Note Text: Attestation signed by Deyanira Reilly MD at 01/20/2024 10:27 AM Attending Note I personally saw and examined the patient. I reviewed the resident's note. I agree with the resident's assessment and plan unless otherwise noted. Doing well this AM - regular diet, DC huy, airam DC home this afternoon Signature: Deyanira Reilly [...] ?F) Resp 22 Ht 160 cm (5' 3) Wt 59 kg (130 lb) SpO2 99% BMI 23.03 kg/m? O2 Therapy: Nasal Cannula IANDO: Date 01/19/24699 - 01/20/24 0659 01/20/24699 - 01/21/24 0659 Shift 3357-1705 4703-4029 0660-4504 24 Hour Total 7654-8684 1137-5284 2497-4740 24 Hour Total INTAKE IV 2000 2000 [...] January 20, 2024 TIME: 6:38 AM Pager: [phone] Vascular and Thoracic Service Pager: For questions or concerns Wed-Fri 6a-5p please page [phone]. After 5pm and on Weekends and Holidays, please page [phone] if in ICU or [phone] if on RNF.[facility]02-21-2024 NoteHNO ID: [id number] Author: HELGA WHITT DO Service: General Surgery Author Type: Resident Type: Plan of Care Filed: 01/19/2024 18:00 Note Text: Post-Op Check Subjective: Patient is postop day 0 from a right carotid endarterectomy. Denies much pain. States that she is tolerating liquids without any complication. Objective: 01/19/24 1715 01/19/24 1730 01/19/24 1745 01/19/24 1750 BP: Pulse: 66 67 61 67 Resp: 15 Temp: TempSrc: SpO2: 97% 98% 97% 98% [...] DO PGY-1 General Surgery Resident 01/19/2024 5:57 [facility]02-21-2024 NoteHNO ID: [id number] Author: ?, ?, ? Service: Pharmacy Author Type: Coal Chemist Type: Plan of Care Filed: 01/19/2024 15:25 Note Text: PHARMACY MEDICATION REVIEW Patient Name: Karolina Canada : 1955 The following medications were updated within the SAMPLE SUPERVISOR medication list: Medications ADDED to SAMPLE SUPERVISOR medication list Medications CHANGED on SAMPLE SUPERVISOR medication list Medications REMOVED from SAMPLE SUPERVISOR medication list isosorbide mononitrate ER (IMDUR) 30 [...] medication history: Yes Medication history completed by: Coal Chemist: Akila Zarate (Ore Fielder) Source of history: Patient: Reliability of source: Appears reliable, clearly identified: Medication name, Medication dose, Medication route, and Medication frequency, Pharmacy records: e-scripts/dispense report, and [facility] records Medication nonadherence identified: No barriers noted Reconciliation completed: No, pharmacist not yet reviewed Patient interested in Bedside Delivery Services or using OP Pharmacy at discharge? Unable to assess Preferred outpatient pharmacy: [id number] [place] [address] - [address] [facility] [phone] Allergies: Penicillins Hives Actos [Pioglitazone* Other: See [...] runny nose, sneezing Steroids [Corticost* GI Upset Comment:deathly ill, joint pain Sulfa (Sulfonamide * Hives, Anaphylaxis [...] (BD POSIFLUSH) None recorded 1 Akila Zarate (Ore Fielder)[id number] 01/19/2024[facility]02-21-2024 NoteHNO ID: [id number] Author: YULISSA MG APRN.PSYCHIATRIC TECHNICIAN ASSISTANT Service: Anesthesiology Author Type: Nurse Geoscience Laboratory Technician Type: Anesthesia Procedure Notes Filed: 01/19/2024 10:16 Note Text: ANESTHESIOLOGY PROCEDURE NOTE Airway General Information Procedure Start Time/Medication Administration: 01/19/2024 9:09 AM Patient location during procedure: OR Timeout Performed Pre-procedure: timeout performed Consent Obtained: Yes Patient identity confirmed: patient Staffing Anesthesiologist: Tree Neal MD PSYCHIATRIC TECHNICIAN ASSISTANT: Yulissa Mg APRN.PSYCHIATRIC TECHNICIAN ASSISTANT Performed by: LUCAS Indications and Patient Condition [...] at approach: 1 Airway not difficult SIGNATURE: Yulissa Mg APRN.CRNA PATIENT NAME: Karolina Canada DATE: January 19, 2024 TIME: 10:15 AM CSN: [id number] Regional Hospital02-21-2024 NoteHNO ID: [id number] Author: YULISSA MG APRN.CRNA Service: Anesthesiology Author Type: Nurse Geoscience Laboratory Technician Type: Anesthesia Procedure Notes Filed: 01/19/2024 10:02 Note Text: ANESTHESIOLOGY PROCEDURE NOTE PIV General Information Procedure Start Time/Medication Administration: 01/19/2024 9:15 AM Patient Location: OR Staffing Anesthesiologist: Tree Neal MD PSYCHIATRIC TECHNICIAN ASSISTANT: Yulissa Mg APRN.PSYCHIATRIC TECHNICIAN ASSISTANT Performed by: PSYCHIATRIC TECHNICIAN ASSISTANT Preparation Sterility Preparation: hand hygiene performed prior to procedure, mask used Site Prep: Chloraprep Procedure Details Indication: need for IV access Needle Size/Type: 18 gauge angiocath Orientation: Right Location: Hand Imaging Guidance Used: No SIGNATURE: Yulissa Mg APRN.CRNA PATIENT NAME: Karolina Canada DATE: January 19, 2024 TIME: 10:01 AM CSN: [id number] Regional Hospital02-21-2024 NoteHNO ID: [id number] Author: TREE NEAL MD Service: Anesthesiology Author [...] January 19, 2024 TIME: 9:41 AM CSN: [id number] Regional Hospital02-15-2024 Miscellaneous Notes* Telephone Encounter - Elizabeth Weiss - 01/13/2024 3:53 PM EST Cardiac clearance received from Dr. Kimberlee perez/ [facility] for a right carotid endarterectomy on 01/19/24. Clearance scanned in and in De. Santa's box to be reviewed. Elizabeth Weiss January 13, 2024 3:54 PM documented in this encounterMary Rutan Hospital02-15-2024 Miscellaneous Notes* Telephone Encounter - MasKei kellogg APRN.CNP - 01/13/2024 2:[address] Reilly, This case was reviewed with Dr. Valle, anesthesiologist. The patient was complaining of chest pain at her [facility] visit. Dr. Valle is requesting cardiac clearance. I left a message for Steffi at your office- see my progress note for more detail. Thanks, Kei Atkinson APRN-SONAL Pre-Anesthesia Testing [phone] documented in this encounterMary Rutan Hospital02-14-2024 NoteHNO ID: [id number] Author: BRENDA WOODS APRN.CNP Service: ? Author Type: Nurse [...] that they just say see you next time. Recently saw cardiology in November but unaware [...] at today's visit. Coronary artery disease of [place]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 angina pectoris (HCC) Surgery [...] that they just say see you next time. Recently saw cardiology in November but unaware of surgery that she knows of. [facility]02-14-[facility] History of Present illness Narrative* Brenda Woods APRN.MUSIC MINISTER - 01/12/2024 12:25 PM EST RED DOT ACC ANI please review with anesthesia to see if patient needs any optimization prior to surgery. Patient reports frequent episodes of chest pain that radiates into her arm. She states only lasts a few minutes due to her just going to lay down and take a nap.Asked if cardiology is aware and she states that they just say see you next time. Recently saw cardiology in November but unaware of surgerythat she knows of. She states most recent episode was a couple nights ago. She reports never going to the ER to get this evaluated. METS 2.75 Scheduled to undergo general anesthesia on 01/19 for right carotid endarterectomy with Dr. Reilly. Pre-op examination see note for medical conditions which may affect stephen-operative course that were addressed at today's visit. Coronary artery disease of [place]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 angina pectoris (HCC) Surgery [...] Instructed to continue as prescribed. Centrilobular emphysema ([facility]) No inhalers. Denies hospitalization in the last year due to respiratory issues. 2L home O2 as needed - reports has not needed recently. GERD (gastroesophageal reflux disease) Famotidine. Instructed to take morning of surgery. Diabetes ([facility]) Glimepiride- instructed to hold morning of surgery. [...] that they just say see you next time. Recently saw cardiology in November but unaware of surgery that she knows of. documented in this encounterMary [facility] Hospital02-14-2024 History and physical note * Brenda Woods APRN.CNP - 01/12/2024 9:20 AM EST HISTORY AND PHYSICAL EXAMINATION SERVICE DATE: 01/12/2024 SERVICE TIME: 9:20 AM PRIMARY CARE PHYSICIAN: Tyrel Sy MD Assessment Patient has the following medical conditions which may affect stephen-operative course: Pre-op examination see note for medical conditions which may affect stephen-operative course that were addressed at today's visit. Coronary artery disease of [place]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 angina pectoris (HCC) Surgery [...] the prior echocardiographic exam performed on 03/07/2021 ([facility] S/P coronary artery stent placement cardiac stents. Essential hypertension Imdur and Metoprolol. Instructed to take morning of surgery. Mixed hyperlipidemia Atorvastatin and Ezetimibe. Instructed to continue as prescribed. Centrilobular emphysema ([facility]) No inhalers. Denies hospitalization in the last year due to respiratory issues. 2L home O2 as needed - reports has not needed recently. GERD (gastroesophageal reflux disease) Famotidine. Instructed to take morning of surgery. Diabetes ([facility]) Glimepiride- instructed to hold morning of surgery. [...] that they just say see you next time. Recently saw cardiology in November but unaware [...] - ANESTHESIA PLAN Anesthetic Plan: general Beta Gale Monitoring Plan Post Procedure Analgesic Plan Prepared [...] Anemia Diabetes (Hcc) Coronary Artery Disease of [place] Artery of [place] Heart With Stable Angina Pectoris (Hcc) S/P [...] for presurgical testing. Patient has a history ofcarotid stenosis. A CTA was performed that showed right ICA stenosis of 80%. Endorses dizziness andpresyncopal episodes that she states are getting more [...] Negative for: frequent urination, hematuria and urgency. 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 x3 2008 CABG, ARTERIAL, FOUR+ 2007 COLONOSCOPY W/BIOPSY SINGLE/MULTIPLE [...] since quittin.8 Smokeless tobacco: Never Tobacco comments: 01/12/24 Strong tobacco smell present Vaping Use Vaping [...] rate daily. Medication Comments documented by Elliot (Ore Fielder)Akila on 04/27/2019 at 1413. ALLERGIES Allergen Reactions [...] nose, sneezing Steroids [Corticost* GI Upset deathly ill, joint pain Sulfa (Sulfonamide * Hives, Anaphylaxis [...] (1.63m) Wt 130 lb (59.0kg) SpO2 98% BMI22.30 kg/(m^2). Diagnostic tests reviewed for today's visit: [...] 8760 hour(s)). Recent Results (from the past 80838 hour(s)) ECHO Collection Time: 10/14/23 10:08 AM [...] sternal wires Assessment/Plan Coronary artery disease of [place]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 angina pectoris (HCC) [I25.118] PLAN Planned Procedure: Procedure(s): ENDARTERECTOMY CAROTID ADULT-right carotid endarterectomy (Right) I spent a total of 50 minutes on the date of the service which included preparing to see the patient, [id number] patient care, completing clinical documentation, obtaining and/or reviewing separately obtained history, performing a medically appropriate examination, and counseling and educating the patient/family/caregiver. Instructions Given to Patient: Instructions located in the after visit summary. Patient given verbal and written preop instructions and voices comprehension and compliance. SIGNATURE: Brenda Woods APRN.CNP PATIENT NAME: Karolina [place] DATE: January 12, 2024 TIME: 9:20 AM PAGER/CONTACT #: documented in this encounterMary Rutan Hospital02-12-2024 Instructions* Patient Instructions* Brenda Woods APRN.CNP - 01/10/2024 2:23 PM EST PATIENT PREOPERATIVE INSTRUCTIONS Your surgeon has scheduled for your procedure at this surgery center: [facility]: [phone], [address] [address] Please enter through the main entrance and proceed to the blue elevators. The surgery [place] [facility] is located to the left of the blue elevator. Please read below carefully for your personalized instructions. SURGERY DATE : 01/19/24 Your surgeon's office will provide you with your ARRIVAL TIME for surgery. - If you have not received an arrival time by the afternoon before your surgery date, please followup with your surgeon's office. - If you are scheduled for a Wednesday surgery, please make sure you have your arrival time by Wednesday afternoon. Please be aware that emergency situations arise, [...] pain medications that do not contain aspirin orNSAIDS as needed. IF YOU TAKE ANY OF [...] or the morning of surgery. Use the Cap Thatns body wash supplied to you along with [...] surgery. - YOU MUST HAVE A RESPONSIBLE DEHYDROGENATION CONVERTER OPERATOR TAKE YOU HOME. A FISHING GEAR MECHANIC, CAB OR UBER DEHYDROGENATION CONVERTER OPERATOR CANNOT BE [place] RESPONSIBLE DEHYDROGENATION CONVERTER OPERATOR. - You cannot stay in a hotel alone after outpatient surgery. You will not be permitted to have yoursurgery, if you do not have someone to [...] but if you wish to bring undergarments forafter surgery you may. Hibiclens provided The anti-bacterial [...] to the body areas that have been cleanedwith Hibiclens. Do not use Hibiclens: - If you are allergic to Chlorhexidine gluconate or any other ingredient in this preparation - In contact with the meninges - In the genital area - On wounds that involve more than the superficial layers of the skin Please review Hibiclens pamphlet prior to use. If you already have an Advance Directive, please fax a copy to [phone] or email to for it to be added to your chart. If you do not have an Advance Directive, you can find the appropriate form and more information at [email or web address]. We recommend that youcomplete the Advance Directive form found on the website and bring it with you the day of your surgery. It can be witnessed and scanned into your chart that day. Brenda Woods APRN.CNP 01/12/24 documented in this encounterMary [facility]an Hospital01-16-2024 NoteHNO ID: [id number] Author: DEYANIRA REILLY MD Service: ? 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 CTA demonstrated a R ICA stenosis of 80%. PAST MEDICAL HISTORY Diagnosis Date Benign neoplasm of duodenum, jejunum, and ileum CAD (coronary artery disease) bilateral Carotid artery stenosis Cyst on right wrist Diabetes (HCC) Diarrhea HLD (hyperlipidemia) HTN (hypertension) Hx of cardiac cath Knee pain LA (myocardial infarction) (HCC) Nausea Nausea with vomiting [...] SURGICAL HISTORY OF Open heart due to LA ROTATOR CUFF REPAIR 04/26/2013 left shoulder w/ [...] daily.Disp: 30 tabletRfl: 11 Blood Pressure Monitor [facility] home blood pressure and heart rate daily.Disp: 1 [...] loses nerve sensation Bony (more content not included)...[facility]01-05-2024 NoteHNO ID: [id number] Author: DEDE SANTA MD Service: ? Author Type: Physician Type: Progress Notes Filed: 12/03/2023 12:29 Note Text: Heart, Vascular and Thoracic [place] Jared Carrizales Department of Cardiovascular Medicine SECTION OF INTERVENTIONAL CARDIOLOGY OUTPATIENT VISIT DATE December 03, 2023 OUTPATIENT VISIT TYPE ESTABLISHED PRIMARY CARE PHYSICIAN: Tyrel Sy ([facility]) [address] [place] [id number] REFERRING PHYSICIAN: SELF CHIEF COMPLAINT: Patient presents [...] mentioned that about 5 months ago has [facility] out side hospital and they did not [...] (hypertension) Hx of cardiac cath Knee pain LA (myocardial infarction) (HCC) Nausea Nausea with vomiting [...] SURGICAL HISTORY OF Open heart due to LA ROTATOR CUFF REPAIR 04/26/2013 left shoulder w/ [...] nose, sneezing Steroids [Corticost* GI Upset deathly ill, joint pain Sulfa (Sulfonamide * Hives, Anaphylaxis yeast infections Tizanidine Hives Tramadol Vomiting MEDICATIONS: Current Outpatient Medications Medication Sig famotidine (PEPCID) 20 mg tablet nitroglycerin sublingual (NITROQUICK) 0.4 mg SL tablet Dissolve 1 tablet under the tongue as needed. FOR CHEST PAIN. IF NO RELIEF CALL 911 (more content not included)...[facility]12-08-2023 History of Present illness Narrative* Rita Aj, RT(R) - 11/05/2023 1:00 PM EST Radiology Service Progress Note DATE OF SERVICE: [...] Completed: CTA Brain and CTA Neck SIGNATURE: JAMES Coppola) PATIENT NAME: Karolina Canada DATE: November 05, 2023 TIME: 1:54 PM documented in this encounterMary [facility]12-08-2023 NoteHNO ID: [id number] Author: Rita Aj RT (R) Service: ? Author Type: Coal Chemist Type: Progress Notes Filed: 11/05/2023 1:54 PM [...] [place] DATE: November 05, 2023 TIME: 1:54 [facility]11-21-2023 NoteHNO ID: [id number] Author: Deyanira Reilly MD Service: ? Author Type: Physician Type: Progress Notes Filed: 10/19/2023 3:05 PM Note Text: [facility] [place] DEPARTMENT OF VASCULAR SURGERY OUTPATIENT VISIT DATE October 19, 2023 OUTPATIENT VISIT TYPE CONSULTATION SERVICE DATE: 10/19/2023 SERVICE TIME: 2:59 PM PRIMARY CARE PHYSICIAN: Tyrel Sy MD REFERRING PROVIDER: Isis Lewis [address] [facility] [address] [facility] [id number] Consult requested for an opinion regarding the evaluation and treatment of the above. My final impression and recommendations will be communicated back to the requesting physician by way of the shared medical record or letter via [place] mail. CHIEF COMPLAINT: Caroitd stenosis HISTORY OF PRESENT ILLNESS: Vascular consultation at the request of Dr. Isis Lewis. A copy of this consultation note will be provided to the requesting physician by way of shared Medical record or letter to requesting physician via US mail. Ms. Canada is a 67 year old female who is seen today for carotid stenosis. Ms. Canada has been followed for a few years with carotid US at [facility] for asymptomatic carotid stenosis - recent US showed an increase in the PSV on the R indicated a greater then 70% stenosis. She has a significant cardiac history including CABGx4, LA and previous cardiac stenting. Has a stress [...] (hypertension) Hx of cardiac cath Knee pain LA (myocardial infarction) (HCC) Nausea Nausea with vomiting [...] SURGICAL HISTORY OF Open heart due to LA ROTATOR CUFF REPAIR 04/26/2013 left shoulder w/ [...] daily.Disp: 30 tabletRfl: 11 Blood Pressure Monitor [facility] blood pressure and heart rate daily.Disp: [...] STRENGTH) 81 mg EC (more content not included)...[facility]11-21-2023 History of Present illness Narrative* Deyanira Reilly MD - 10/19/2023 2:59 PM EST Images from the original note were not included. [facility] [place] DEPARTMENT OF VASCULAR SURGERY OUTPATIENT VISIT DATE October 19, 2023 OUTPATIENT VISIT TYPE CONSULTATION SERVICE DATE: 10/19/2023 SERVICE TIME: 2:59 PM PRIMARY CARE PHYSICIAN: Tyrel Sy MD REFERRING PROVIDER: Isis Lewis [address] [facility] [address] [facility] [id number] Consult requested for an opinion regarding the evaluation and treatment of the above. My final impression and recommendations will be communicated back to the requesting physician by way of the shared medical record or letter via US mail. CHIEF COMPLAINT: Caroitd stenosis HISTORY OF PRESENT ILLNESS: Vascular consultation at the request of Dr. Isis Lewis. A copy of this consultation note will be provided to the requesting physician by way of shared Medical record or letter to requesting physician via US mail. Ms. Canada is a 67 year old female who is seen today for carotid stenosis. Ms. Canada has been followed for a few years with carotid US at [facility] for asymptomatic carotid stenosis - recent US showed an increase in the PSV on the R indicated a greater then 70% stenosis. She has a significant cardiac history including CABGx4, LA and previous cardiac stenting. Has a stress [...] (hypertension) Hx of cardiac cath Knee pain LA (myocardial infarction) (HCC) Nausea Nausea with vomiting [...] SURGICAL HISTORY OF Open heart due to LA ROTATOR CUFF REPAIR 04/26/2013 left shoulder w/ [...] by mouth every 6 hours.^Disp: 50 tablet^Rfl: 0(Patient taking differently: Take 1,000 mg by mouth [...] Head/Neck W No IV access, insert saline lockprior to the sedation, infusion, injection for imaging [...] mL by mouth every 6 hours as needed.^Disp:^Rfl: (Patient not taking: Reported on 09/03/2023) UNIFINE PENTIPS PLUS 32 gauge x 5/32^use with insulin pen DAILY DIRECTED^Disp: ^Rfl: (Patient [...] nose, sneezing Steroids [Corticost* GI Upset deathly ill, joint pain Sulfa (Sulfonamide * Hives, Anaphylaxis yeast infections Tizanidine Hives Tramadol Vomiting REVIEW OF SYSTEM: Constitutional: No weight loss, malaise or fevers. Respiratory: Negative for SOB Cardiovascular: Negative for chest pain or recent LA Gatrointestinal: Negative for abdominal discomfort Genitourinary: Negative [...] carotid stenosis, asymptomatic. She is on maximal medicaltherapy including ASA and statin. We discussed today [...] which included preparing to see the patient, [id number] patient care, completing clinical documentation, obtaining and/or reviewing separately obtained history, performing a medically appropriate examination, counseling and educating the pat ient/family/caregiver, communicating with other HCPs (not separately reported), independently interpreting results (not separately reported) and communicating results to the patient/family/caregiver. SIGNATURE: Deyanira Reilly MD PATIENT NAME: Karolina Canada DATE: October 19, 2023 TIME: 2:59 PM documented in this encounterMary [facility] Hospital11-13-2023 Miscellaneous Notes* Telephone Encounter - Megan Thurston LPN - 10/11/2023 2:07 PM EST Spoke to Ms. Canada about test results. Patient voiced understanding. Megan Thurston LPN * Telephone Encounter - Megan Thurston LPN - 10/11/2023 2:04 PM EST ----- Message from Isis Lewis APRN.MUSIC MINISTER sent at 10/11/2023 1:59 PM EST ----- Please call patient and notify her of stress testing results. Nuclear med stress testing does not suggest ischemia. No indication to pursue a left heart catheterization based on stress testing results. We will wait for echocardiogram results to determine if there is a cardiac cause for symptoms. Thank you! documented in this encounterMary Rutan Hospital11-13-2023 NoteHNO ID: [id number] Author: Sameera Salguero RN Service: ? Author [...] Sameera Salguero RN Reversal agent used:None LOT [id number] EXP 11/29/26 IV SITE: IV palced by nuclear tecnologist POST EXAM PIV STATUS: Discontinued by Client Support Analyst PATIENT DISCHARGED TO: Nuclear Medicine Department for post stress imaging A Diagnostic radioactive procedure has taken place, with no further precautions necessary other than routine body substance precautions. More information regarding radiation safety can be found using this link: [email or web address]%20Medicine%20Procedures.[email or web address] SIGNATURE: Sameera Salguero RN PATIENT NAME:Karolina Canada DATE: 10/11/23 TIME: 10:44 [facility]11-13-2023 History of Present illness Narrative* Talia Galicia, RT(R) - 10/11/2023 8:00 AM EST RADIOLOGY SERVICE PROGRESS NOTE SERVICE DATE: 10/11/2023 SERVICE TIME: 08:10 AM PATIENT IDENTITY VERIFICATION COMPLETED USING TWO (2) STANDARD IDENTIFIERS: Name and Date of confirmed by patient verbally FALL SCREENING: Has the patient had 2 falls in the last year or 1 fall with injury or currently using an Ambulatory Assistive Device (Walker, Cane, Wheelchair, Crutches, etc.)? Yes, Patient High Riskfor Falls What interventions were put in place to prevent falls during this visit? Instructed Patient to Callfor Help if Needed, Offered Assistance with Transfers/Clothing, Instructed Patient to Remain Seated(Not on Exam Table) Until Exam, Increased Observations [...] Discontinued PROCEDURE TYPE: NM Stress: 11.9 mCi Ux39h-Twexkhl was administered IV for Rest Imaging at 08:17 by Talia Galicia. 31.7 mCi Yf38k-Cmmrgoi was administered IV for Stress Imaging at 09:30 by Talia Galicia. ADMINISTRATION TIME: PATIENT DISCHARGED TO: Ambulatory patient, left NC department area. A Diagnostic radioactive procedure has taken place, with no further precautions necessary other than routine body substance precautions. More information regarding radiation safety can be found usingthis link: [email or web address]-% 20Diagnostic%20Nuclear%20Medicine%20Procedures.pdf SIGNATURE: JAMES Cruz) PATIENT NAME: Karolina Canada DATE: October 11, 2023 TIME: 10:35 AM PAGER/CONTACT #: documented in this encounterMary Rutan Hospital11-13-2023 Miscellaneous Notes* Result Encounter Note - Isis Lewis APRN.CNP - 10/11/2023 8:00 AM EST Please call patient and notify her of stress testing results. Nuclear med stress testing does not suggest ischemia. No indication to pursue a left heart catheterization based on stress testing results. We will wait for echocardiogram results to determine if there is a cardiac cause for symptoms. Thank you! documented in this encounterMary [facility]an Hospital11-13-2023 NoteHNO ID: [id number] Author: Talia Galicia RT(R) Service: Nuclear Medicine [...] Discontinued PROCEDURE TYPE: NM Stress: 11.9 mCi Fs44e-Dxlrbsn was administered IV for Rest Imaging at 08:17 by Talia Galicia. 31.7 mCi Fs25m-Lqjtfds was administered IV for Stress Imaging at 09:30 by Talia Galicia. ADMINISTRATION TIME: PATIENT DISCHARGED TO: Ambulatory patient, left [place] department area. A Diagnostic radioactive procedure has taken place, with no further precautions necessary other than routine body substance precautions. More information regarding radiation safety can be found using this link: [email or web address]%20Nuclear%20Medicine%[email or web address] SIGNATURE: RT Nancy(R) PATIENT NAME: Karolina Canada DATE: October 11, 2023 TIME: 10:35 AM PAGER/CONTACT #:[facility]11-03-2023 NoteHNO ID: [id number] Author: Isis Lewis APRN.MUSIC MINISTER Service: ? Author Type: Nurse Practitioner Type: [...] was seen in new consult by Dr. Santa in office last month. She has seen multiple cardiologists for different opinions including Dr. Khan at our [place] location, and Dr. Mancilla at [facility]. She underwent a previous cardiac catheterization by Dr. Lopez at [facility] in 2019. Today, she endorses limiting fatigue, dyspnea on exertion, chest discomfort and lightheadedness. Reported lower extremity swelling has resolved without any clear intervention. She is not able to make her bed or walk around the store without feeling limited by symptoms. She states she had a left heart catheterization 6 months ago [address] [facility]. Results are not available for my review. [...] (hypertension) Hx of cardiac cath Knee pain LA (myocardial infarction) (HCC) Nausea Nausea with vomiting [...] SURGICAL HISTORY OF Open heart due to LA ROTATOR CUFF REPAIR 04/26/2013 left shoulder w/ [...] nose, sneezing Steroids [Corticost* GI Upset deathly ill, joint pain Sulfa (Sulfonamide * Hives, Blas (more content not included)...[facility]10-06-2023 NoteHNO ID: [id number] Author: Dede Santa MD Service: ? Author Type: Physician Type: Progress Notes Filed: 09/03/2023 3:11 PM Note Text: [facility] [place] Jared Carrizales Department of Cardiovascular Medicine SECTION OF INTERVENTIONAL CARDIOLOGY OUTPATIENT VISIT DATE 09/03/2023 OUTPATIENT VISIT TYPE NEW PRIMARY CARE PHYSICIAN: Tyrel Sy ([place]) [address] [place] [address] REFERRING PHYSICIAN: SELF CHIEF COMPLAINT: Patient presents [...] mentioned that about 5 months ago has [facility] out side hospital and ever since has [...] (hypertension) Hx of cardiac cath Knee pain LA (myocardial infarction) (HCC) Nausea Nausea with vomiting [...] SURGICAL HISTORY OF Open heart due to LA ROTATOR CUFF REPAIR 04/26/2013 left shoulder w/ [...] nose, sneezing Steroids [Corticost* GI Upset deathly ill, joint pain Sulfa (Sulfonamide * Hives, Anaphylaxis [...] by mouth once daily. (more content not included)...[facility] 09-03-2023 History of Present illness Narrative* Dede Santa MD - 09/03/2023 1:51 PM EDT Images from the original note were not included. [facility] [place] Jared Carrizales Department of Cardiovascular Medicine SECTION OF INTERVENTIONAL CARDIOLOGY OUTPATIENT VISIT DATE 09/03/2023 OUTPATIENT VISIT TYPE NEW PRIMARY CARE PHYSICIAN: Tyrel Sy ([facility]) [address] [place] [address] REFERRING PHYSICIAN: SELF CHIEF COMPLAINT: Patient presents [...] mentioned that about 5 months ago has [facility] out side hospital and ever since has [...] (hypertension) Hx of cardiac cath Knee pain LA (myocardial infarction) (HCC) Nausea Nausea with vomiting OA (osteoarthritis) Reflux Rotator cuff (capsule) sprain Rotator cuff tear, left S/P CABG (coronary artery bypass graft) S/P primary angioplasty with coronary stent 2006 RCA Status post primary angioplasty 2016 OM1 Stomach pain Unspecified cardiovascular disease Vomiting PAST SURGICAL HISTORY Procedure Laterality Date ARTHROSCOPY KNEE DIAGNOSTIC W/WO SYNOVIAL BX SPX 2005 Arthroscopy, knee, Rt. x3 CABG, ARTERIAL, FOUR+ [...] SURGICAL HISTORY OF Open heart due to LA ROTATOR CUFF REPAIR 04/26/2013 left shoulder w/ [...] nose, sneezing Steroids [Corticost* GI Upset deathly ill, joint pain Sulfa (Sulfonamide * Hives, Anaphylaxis yeast infections Tizanidine Hives Tramadol Vomiting MEDICATIONS: Ferrous Gluconate (FERGON) 324 mg (38 mg iron) tablet^Take 1 tablet by mouth twice daily.^Disp: ^Rfl: acetaminophen (TYLENOL) 500 mg tablet^Take 2 tablets by mouth every 6 hours.^Disp: 50 tablet^Rfl: 0(Patient taking differently: Take 1,000 mg by mouth [...] mL by mouth every 6 hours as needed.^Disp:^Rfl: (Patient not taking: Reported on 09/03/2023) UNIFINE PENTIPS PLUS 32 gauge x 5/32^use with insulin pen DAILY DIRECTED^Disp: ^Rfl: (Patient [...] Plan notes found for this encounter. Dede Santa MD,[facility] Section of Interventional Cardiology [facility], [address], [email or web address] documented in this encounterMary Rutan Hospital10-06-2023 Nurse Note* Matilda Benson MA - 09/03/2023 1:26 PM EDT C/o chest pain at times,c/o being fatigue. Matilda Benson MA documented in this encounterMary [facility]an Hospital06-07-2023 [facility]2023 Procedure [facility]06-07-2023 Procedure [facility]05-06-2023 Evaluation note* Diagnosis Onset Date Resolution Status Ulcerative colitis chronic Cardiac murmur acute Palpitations acute Atherosclerotic heart diseas e of [place] coronary artery without angina pectoris chronic H/O coronary artery bypass surgery April 03, 2007 chronic History of coronary artery stent placement December chronic Hyperlipemia chronic Cardiac murmur acute Fatigue acute Palpitations acute Shortness of breath acute H/O coronary artery bypass surgery April 03, 2007 chronic History of coronary artery stent placement December chronic Hyperlipemia chronic Anemia acute Ulcerative colitis [facility] Work Phone: [phone]) 632-964005-06-2007 Evaluation note* Diagnosis Onset Date Resolution Status Cardiac murmur acute Fatigue acute Palpitations acute Shortness of breath acute H/O coronary artery bypass surgery April 03, 2007 chronic History of coronary artery stent placement December chronic Hyperlipemia chronic Anemia acute Ulcerative colitis chronic Carotid stenosis, bilateral acute Anemia acute Ulcerative colitis [facility] Work Phone: evaluation noteNo assessment information available [facility] Work Phone: evaluation note* Diagnosis Onset Date Resolution Status Chest heaviness acute Fatigue acute Atherosclerotic heart diseas e of [place] coronary artery without angina pectoris chronic Carotid stenosis, right beach expert lorelei Essential (primary) hypertension chronic Hyperlipemia [facility] Work Phone: evaluation note* Diagnosis Onset Date Resolution Status Chest heaviness acute Fatigue acute Atherosclerotic heart diseas e of [place] coronary artery without angina pectoris chronic Carotid stenosis, right beach expert lorelei Essential (primary) hypertension chronic Hyperlipemia chronic Carotid stenosis, right beach expert lorelei [facility] Work Phone: evaluation note* Diagnosis Onset Date Resolution Status Carotid stenosis, right beach expert lorelei [facility] Work Phone: Evaluation note* Diagnosis Onset Date Resolution Status Chest heaviness acute Palpitations acute Atherosclerotic heart diseas e of [place] coronary artery without angina pectoris chronic Carotid stenosis, right beach expert lorelei Essential (primary) hypertension chronic Hyperlipemia chronic Colitis [facility] Work Phone: Evaluation note* Diagnosis Onset Date Resolution Status Chest heaviness acute Palpitations acute Atherosclerotic heart diseas e of [place] coronary artery without angina pectoris chronic Carotid stenosis, right beach expert lorelei Essential (primary) hypertension chronic Hyperlipemia chronic Colitis chronic Ulcerative colitis [facility] Work Phone: Evaluation note* Diagnosis Onset Date Resolution Status Chest heaviness acute Palpitations acute Atherosclerotic heart diseas e of [place] coronary artery without angina pectoris chronic Carotid stenosis, right beach expert lorelei Essential (primary) hypertension chronic Hyperlipemia chronic Colitis chronic Ulcerative colitis acute Cardiac murmur acute Palpitations acute Atherosclerotic heart diseas e of [place] coronary artery without angina pectoris chronic H/O coronary artery bypass surgery April 03, 2007 chronic History of coronary artery stent placement December chronic Hyperlipemia [facility] Work Phone: Evaluation note* Diagnosis Onset Date Resolution Status Colitis chronic Ulcerative colitis acute Cardiac murmur acute Palpitations acute Atherosclerotic heart diseas e of [place] coronary artery without angina pectoris chronic H/O coronary artery bypass surgery April 03, 2007 chronic History of coronary artery stent placement December chronic Hyperlipemia [facility] Work Phone: Evaluation note* Diagnosis Onset Date Resolution Status Ulcerative colitis acute Cardiac murmur acute Palpitations acute Atherosclerotic heart diseas e of [place] coronary artery without angina pectoris chronic H/O coronary artery bypass surgery April 03, 2007 chronic History of coronary artery stent placement December chronic Hyperlipemia [facility] Work Phone: Evaluation note* Diagnosis Presence of stent in left circumflex coronary artery- Primary Postsurgical percutaneous transluminal coronary angioplasty status 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 (HCC) Swelling of limb [M79.89] Swelling of limb Uncontrolled type 2 diabetes mellitus with hyperglycemia (HCC) documented [facility] this encounter [facility]* Diagnosis Onset Date Resolution Status Anemia acute Ulcerative colitis [facility] Work Phone: Evaluation note* Diagnosis Coronary artery disease of [place]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 angina pectoris (HCC) HANCOCK (dyspnea on exertion) Other dyspnea and respiratory abnormality [facility] this encounter [facility]* Diagnosis Bilateral carotid artery stenosis- Primary Occlusion and stenosis of carotid artery without mention of cerebral infarction Occlusion and stenosis of unspecified carotid artery [facility] encounter [facility]* Diagnosis Onset Date Resolution Status Anemia chronic Ulcerative colitis [facility] Work Phone: Evaluation note* Diagnosis Occlusion and stenosis of unspecified carotid artery [facility]* Diagnosis Pre-op examination Preoperative examination, unspecified Coronary artery disease of [place]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 angina pectoris (HCC) S/P [...] infarction [facility] this encounter [facility]* Diagnosis Onset Date Resolution Status Anemia chronic Ulcerative colitis chronic Iron deficiency anemia acute Lung cancer [facility] Work Phone: Evaluation note* Diagnosis S/P carotid endarterectomy- Primary Other postprocedural status Bilateral carotid artery stenosis Occlusion and stenosis of carotid artery without mention of cerebral infarction [facility] encounter [facility]* Diagnosis SVT (supraventricular tachycardia) ([facility]), brief 4 beat runs- Primary Other specified cardiac dysrhythmias Palpitations S/P coronary artery stent placement Postsurgical percutaneous transluminal coronary angioplasty status Essential hypertension Unspecified essential hypertension Coronary artery disease of [place]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 angina pectoris (HCC) Presence of stent in left circumflex coronary artery Postsurgical percutaneous transluminal coronary angioplasty status Presence of stent in right coronary artery Postsurgical percutaneous transluminal coronary angioplasty status S/P CABG x 4 Postsurgical aortocoronary bypass status documented [facility] this encounter [facility]* Diagnosis Onset Date Resolution Status Iron deficiency anemia acute Lung cancer [facility] Work Phone: Evaluation note* Diagnosis Coronary artery disease of bypass graft of [place] heart with stable angina pectoris (HCC)- Primary Uncontrolled type 2 diabetes mellitus with hyperglycemia ([facility]) Hyperlipidemia, unspecified hyperlipidemia type Primary hypertension Unspecified essential hypertension [facility] Diagnosis Hematemesis, unspecified whether nausea present- Primary documented [facility] encounter [facility] Author Charlie Friend [facility] May 05, 2023 9:33am Note Date/Time May 05, 2023 9:33a m [facility] Medical Records Department [address] [place] [address] History & Physical Exam 05/05/23931 MR#: [id number] Acct: [id number] Name: KAROLINA CANADA Rep #:[id number] : 1955 67 From: Charlie Friend DO PCP: Dr. David Sy MD Status: [facility] Location: [place] [address] History and Physical Date of Admission: 05/05/23 67 F who presents to the office today for PMH lung cancer; myocardial infarction s/p coronary artery stent placement and CABG. FH colitis, unsure type. EGD and Colonoscopy 08.06.[address] Narvaez for reflux and diarrhea. EGD advanced to pylorus only r/t hypoxia; esophagus and stomach without abnormality seen. Colonoscopy advanced to cecum; Two less than 5mm hyperplastic polyps; Sigmoid colon with focal acute colitis with single gland crypt abscess. *BGI established 10.20.22 with referral from PCP to evaluate diarrhea. Diarrhea with blood and mucous and diffuse lower abdominal/pelvic pain has been present for approximately three years. At onset she was having loose stools with up to nine BM a day; consistency has gotten worse and is now watery stools up to 9 times a day. Reports weight loss of 50-60lbs in the last year. This is the firstepisode of symptoms. Biochemical workup ?CBC, CMP, lipids, amylase, lipase, Allergens, RAST,?BLAS comp, celiac,?IgGAM without pertinent abnormality. ESR H36, CRP H24.80, IgE <2, yijnl-2-lfbrhjft H1.1, p-ANCA H1:160. IBD profile suggestive of UC LFT AST 16/ALT 20/ AP H124. Lipids WNL. Stool studies calprotectin, lactoferrin, C.difficile, elastase, ova/parasite, giardia, EP WNL. ? Total fecal fats increased. Start Mesalamine. Did not wish to have EGD or colonoscopy performed at this timeas she reports the most recent being several months ago with Dr. Narvaez. Contact 01.14.23 from PCP with concern as she did not tolerate?mesalamine r/t increased abdominal pain/cramping, emesis.?Contact with Karolina, she did not wishto make any changes or attempt another medication at this time. OV 01.18.23 Reports that her symptoms have not changed since cessation of mesalamine which was only taken for one week and then stopped. BM frequency 5+ times a day with continued abdominal pain/cramping, nausea and emesis.?Pursue Stelara for therapy OV 04.28. Continues to have numerous symptoms to include N/V/D, abdominal pain blood in stool, bloating, heartburn. She refuses to take Stelara as she is concerned about side effects. Does not want to take any medications; does not want to pursue colectomy as she does not wish to have colostomy. Stelara start 02.19.23 ROS Const Constitutional: No anorexia, fatigue, fever(s), weight change or sleep problems Eyes Eyes: No change in vision ENT ENT: No abnormal hearing, difficulty swallowing, mouth lesions, tongue swelling or throat swelling Resp Respiratory: No cough or shortness of breath Cardio Cardiology: No chest pain at rest, chest pain with exertion, shortness of breathor dyspnea on exertion Gastro GI: No difficulty swallowing Genitourinary-Female: No difficulty urinating or burning urination Musc Musculoskeletal: No joint pain, joint swelling, muscle weakness or decreased muscle mass Skin Skin: No hair loss in leg, yellowing of the eye, itchy eyes, rash, skin ulcer orskin swelling Neuro Neurology: No abnormal hearing, abnormal movements, confusion, unsteady gait/balance or memory loss Psych Psychiatric: No anxiety, No confusion and No memory loss Endo Endocrine: No fatigue or weight change Aller/Imm Allergy/Immunologic: No itchy eyes, throat swelling or tongue swelling Lavon/Lymp Hematologic/Lymphatic: No easy bleeding, easy bruising or enlarged lymph nodes Exam Const General: cooperative and comfortable Nutritional Appearance: average body habitus and well nourished [facility] Head: normal to inspection Ears: hearing grossly normal bilaterally Nose: external nose normal Face and sinus: normal facial exam Mouth: oral mucosae normal Throat: posterior oropharynx normal Eyes General: appearance normal, both eyes and all related structures Neck Neck: normal visual inspection Chest Chest palpation & inspection: normal inspection of the chest and normal palpation of entire chest wall Resp Effort & Inspection: normal respiratory effort Auscultation: Bilateral: Clear to Auscultation Cardio Palpation: normal PMI Rate: regular rate Rhythm: regular rhythm GI Inspection: normal to inspection Auscultation: normal bowel sounds Percussion: normal to percussion Palpation: no hepatosplenomegaly Skin General: no rashes or lesions noted Neuro General: patient alert Extrem General: normal to inspection Psych Affect: normal affect Quality Reporting Tobacco Screening ([facility] 138) Smoking Status: Former smoker Assessment and Plan Assessment and Plan (1) Ulcerative colitis: ?Status:?Chronic ?Plan: Patient with biochemical analysis that says it is more likely that she has a also colitis.? She only tried mesalamine based products for 1 week and she triedStelara for 1 dose.? I have not performed a upper or lower endoscopy on her to stage her and she did not want any other testing.? She comes in today saying shecannot take it anymore and she is want to undergo colonoscopy.? Therefore we will schedule colonoscopy so I can stage her and see if there is any signs or symptoms of active ulcerative colitis. (2) Anemia: ?Status:?Acute ?Plan: I told her that she should undergo testing such as an upper endoscopy since she is undergoing colonoscopy so we can see if she had of acute blood loss anemia and upper GI tract.? She was explained alternatives, risk, benefits include not withstanding bleeding, infection, sepsis, perforation, need for emergent .?She will have an ASA of 3. ? ? ? Orders: Orders Colonoscopy 05/05/23 D64.9 - Anemia, unspecified, K5 1.90 - Ulcerative colitis, unspecified, without complications ? EGD 05/05/23 D64.9 - Anemia, unspecified, K5 1.90 - Ulcerative colitis, unspecified, without complications ? I have examined the patient and the H&P has been reviewed. There are no clinicalchanges since date of exam. 05/05/23 0933 <Electronically signed by Charlie Corcoran DO> Cosigner Signature (if applicable): CC: Dr. David Sy MD; Charlie Corcoran DO~ Signed 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 (HCC) Procedures ECHO ECHO TTHRC R-T 2D W/WOM-MODE COMPL SPEC&COLR D Dede Santa MD [address] [place] [address] Heart [facility] [place] [address] [place] [address] Referral ID Status Reason Start Date Expiration Date Visits Requested Visits Authorized [id number] Pending Review Auto-Generat ed Referral 09/03/2023 09/02/2024 1 1 [facility] for referral (narrative)* Diagnostic Procedure Only (Routine) - Closed Specialty Diagnoses / Procedures Referred By Mounikaac t Referred To Contact MOLECULAR & FUNCTIONAL IMAGING Diagnoses Coronary artery disease of [place]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 angina pectoris (HCC) HANCOCK (dyspnea on exertion) Procedures NM CARDIAC PERF STRESS/PHARM MYOCARDIAL SPECT MULTIPLE STUDIES Isis Lewis APRN.CNP [address] [place] [address] Molecular [facility] Functional Imaging [address] [phone] Referral ID Status Reason Start Date Expiration Date V isits Requested Visits Authorized [id number] Closed Auto-Generate d Referral 10/01/2023 10/30/2024 1 1 [facility] for referral (narrative)* Outpatient Procedure (Routine) - Pending Review Specialty Diagnoses / Procedures Referred By Paulie yañez Referred To Contact [facility] Diagnoses S/P carotid endarterectomy Bilateral carotid artery stenosis Procedures US CAROTID ARTERIES COBY VAS LAB DUPLEX SCAN EXTRACRANIAL ART COMPL BI STUDY Isis Best MASTER OCEAN.MUSIC MINISTER 1 [facility] [address] [place] [address] Heart [facility] [place] [address] [place] [address] Referral ID Status Reason Start Date Expiration Date Visits Requested Visits Authorized [id number] Pending Review Auto-Generat ed Referral 02/15/2024 02/14/2025 1 1 [facility]No reason for referral information [facility] Work Phone: Reason for visit Narrative* Diagnostic Procedure Only (Routine) - Closed Specialty Diagnoses / Procedures Referred By Contac t Referred To Contact MOLECULAR & FUNCTIONAL IMAGING Diagnoses Coronary artery disease of [place]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 angina pectoris (HCC) HANCOCK (dyspnea on exertion) Procedures NM CARDIAC PERF STRESS/PHARM MYOCARDIAL SPECT MULTIPLE STUDIES Isis Lewis APRN.MUSIC MINISTER [address] [place] [address] Molecular & Functional Imaging [address] [phone] Referral ID Status Reason Start Date Expiration Date V isits Requested Visits Authorized [id number] Closed Auto-Generate d Referral 10/01/2023 10/30/2024 1 1 [facility] Summary Purpose Family History No Family History Records Found Relationship Condition Age at Onset Recorded Date/T cristobal Not Specified Cardiac disease Unknown father Malignant neoplasm Unknown grandfather Malignant neoplasm Unknown grandmother Malignant neoplasm Unknown Advance Directives No Advanced Directives Records Found Advance Directive Response Recorded Date/ Time Living Will No August 01 9:54am Power of Ice Cream Chef No August 01, 2021 9:54am Advance Directive Response Recorded Date/ Time Advance Directives No July 7:06am Living Will No August 07 7:06am Power of Ice Cream Chef No August 07, 2022 7:06am Advance Directive Response Recorded Date/ Time Advance Directives No July 6:06am Living Will No August 07 6:06am Power of Ice Cream Chef No August 07, 2022 6:06am Advance Directive Response Recorded Date/ Time Advance Directives No July 7:06am Living Will No April 30, 2023 1 0:12am Power of Ice Cream Chef No April 30, 2023 10:12am Documents on File Type Date Recorded Patient Named Account Executive Expl anation Advance Directive(s) 03/07/2021 2:14 PM Documents on File Type Date Recorded Patient Named Account Executive Expl anation Advance Directive(s) 03/07/2021 2:14 PM Advance Directive Response Recorded Date/ Time Advance Directives No July 6:06am Living Will No April 30, 2023 9 :12am Power of Ice Cream Chef No April 30, 2023 9:12am Advance Directive Response Recorded Date/ Time Living Will No June 22, 2024 12:13pm Do you have a Healthcare Power of Ice Cream Chef? No June 22, 2024 12:13pm Living Will No April 30, 2023 1 0:12am Do you have a Healthcare Power of Ice Cream Chef? No April 30, 2023 10:12am Advance Directives No July 7:06am Chief Complaint and Reason for Visit Chief Complaint EORDER FOR LABS Chief Complaint EORDER FOR LABS CERV DDD C4-6 6 M FU FATIGUE, DYSPNEA ON EXERTION FATIGUE, DYSPNEA ON EXERTION Reason for Visit Chest heaviness Fatigue Atherosclerotic heart disease of [place] coronary artery without angina pectoris Carotid stenosis, right Essential (primary) hypertension Hyperlipemia Chief Complaint EORDER FOR LABS CERV DDD C4-6 6 M FU FATIGUE, DYSPNEA ON EXERTION FATIGUE, DYSPNEA ON EXERTION CAROTID ARTERY PLAQUE, BILAT Reason for Visit Chest heaviness Fatigue Atherosclerotic heart disease of [place] coronary artery without angina pectoris Carotid stenosis, right Essential (primary) hypertension Hyperlipemia Chief Complaint EORDER FOR LABS CERV DDD C4-6 6 M FU FATIGUE, DYSPNEA ON EXERTION FATIGUE, DYSPNEA ON EXERTION CAROTID ARTERY PLAQUE, BILAT CAROTID U/S /24 LABS AND XRAY E ORDERS ALSO Reason for Visit Chest heaviness Fatigue Atherosclerotic heart disease of [place] coronary artery without angina pectoris Carotid stenosis, right Essential (primary) hypertension Hyperlipemia Carotid stenosis, right Chief Complaint CERV DDD C4-6 6 M FU FATIGUE, DYSPNEA ON EXERTION FATIGUE, DYSPNEA ON EXERTION CAROTID ARTERY PLAQUE, BILAT CAROTID U/S /24 LABS AND XRAY E ORDERS ALSO Amb Documentation COPD COPD CP, CAD, HX CABG, PCI, DM CP, CAD, HX CABG, PCI, DM Reason for Visit Chest heaviness Fatigue Atherosclerotic heart disease of [place] coronary artery without angina pectoris Carotid stenosis, right Essential (primary) hypertension Hyperlipemia Carotid stenosis, right Chief Complaint CERV DDD C4-6 6 M FU FATIGUE, DYSPNEA ON EXERTION FATIGUE, DYSPNEA ON EXERTION CAROTID ARTERY PLAQUE, BILAT CAROTID U/S 24 LABS AND XRAY E ORDERS ALSO Amb Documentation COPD COPD CP, CAD, HX CABG, PCI, DM CP, CAD, HX CABG, PCI, DM Amb Documentation SCREENING/OSTEO Reason for Visit Chest heaviness Fatigue Atherosclerotic heart disease of [place] coronary artery without angina pectoris Carotid stenosis, right Essential (primary) hypertension Hyperlipemia Carotid stenosis, right Chief Complaint FATIGUE, DYSPNEA ON EXERTION FATIGUE, DYSPNEA ON EXERTION CAROTID ARTERY PLAQUE, BILAT CAROTID U/S 05/22 LABS AND XRAY E ORDERS ALSO Amb Documentation COPD COPD CP, CAD, HX CABG, PCI, DM CP, CAD, HX CABG, PCI, DM Amb Documentation SCREENING/OSTEO Reason for Visit Carotid stenosis, ri ght Chief Complaint LABS AND XRAY E ORDERS ALSO Amb Documentation COPD COPD CP, CAD, HX CABG, PCI, DM CP, CAD, HX CABG, PCI, DM Amb Documentation SCREENING/OSTEO EORDER FOR LABS 3 M FU E ORDERS Diarrhea E ORDER Reason for Visit Chest heaviness Palpitations Atherosclerotic heart disease of [place] coronary artery without angina pectoris Carotid stenosis, right Essential (primary) hypertension Hyperlipemia Colitis Chief Complaint LABS AND XRAY E ORDERS ALSO Amb Documentation COPD COPD CP, CAD, HX CABG, PCI, DM CP, CAD, HX CABG, PCI, DM Amb Documentation SCREENING/OSTEO EORDER FOR LABS 3 M FU E ORDERS Diarrhea E ORDER E ORDERS Reason for Visit Chest heaviness Palpitations Atherosclerotic heart disease of [place] coronary artery without angina pectoris Carotid stenosis, right Essential (primary) hypertension Hyperlipemia Colitis Chief Complaint EORDER FOR LABS 3 M FU E ORDERS Diarrhea E ORDER E ORDERS Amb Documentation 3 MO FU Reason for Visit Chest heaviness Palpitations Atherosclerotic heart disease of [place] coronary artery without angina pectoris Carotid stenosis, right Essential (primary) hypertension Hyperlipemia Colitis Ulcerative colitis Chief Complaint 3 M FU E ORDERS Diarrhea E ORDER E ORDERS Amb Documentation 3 MO FU 2nd opinion/ wants to see PFM not DIE CAST SUPERVISOR MURMUR INT LABS Reason for Visit Chest heaviness Palpitations Atherosclerotic heart disease of [place] coronary artery without angina pectoris Carotid stenosis, right Essential (primary) hypertension Hyperlipemia Colitis Ulcerative colitis Cardiac murmur Palpitations Atherosclerotic heart disease of [place] coronary artery without angina pectoris H/O coronary artery bypass surgery History of coronary artery stent placement Hyperlipemia Chief Complaint Diarrhea E ORDER E ORDERS Amb Documentation 3 MO FU 2nd opinion/ wants to see PFM not DIE CAST SUPERVISOR MURMUR INT LABS Reason for Visit Colitis Ulcerative colitis Cardiac murmur Palpitations Atherosclerotic heart disease of [place] coronary artery without angina pectoris H/O coronary artery bypass surgery History of coronary artery stent placement Hyperlipemia Chief Complaint E ORDERS Amb Documentation 3 MO FU 2nd opinion/ wants to see PFM not DIE CAST SUPERVISOR MURMUR INT LABS STELARA 390 MG LUNG CANCER Reason for Visit Ulcerative colitis Cardiac murmur Palpitations Atherosclerotic heart disease of [place] coronary artery without angina pectoris H/O coronary artery bypass surgery History of coronary artery stent placement Hyperlipemia Chief Complaint Amb Documentation 3 MO FU 2nd opinion/ wants to see PFM not DIE CAST SUPERVISOR MURMUR INT LABS STELARA 390 MG LUNG CANCER 3 M FU E-ORDER 3 MO FU CAROTID STENOSIS Reason for Visit Ulcerative colitis Cardiac murmur Palpitations Atherosclerotic heart disease of [place] coronary artery without angina pectoris H/O coronary artery bypass surgery History of coronary artery stent placement Hyperlipemia Cardiac murmur Fatigue Palpitations Shortness of breath H/O coronary artery bypass surgery History of coronary artery stent placement Hyperlipemia Anemia Ulcerative colitis Chief Complaint STELARA 390 MG LUNG CANCER 3 M FU E-ORDER 3 MO FU CAROTID STENOSIS Palpitations 14 day event recorder DO ORDERS FROM JANUARY ROUTINE CAROTID 2 WK FU Reason for Visit Cardiac murmur Fatigue Palpitations Shortness of breath H/O coronary artery bypass surgery History of coronary artery stent placement Hyperlipemia Anemia Ulcerative colitis Carotid stenosis, bilateral Anemia Ulcerative colitis Chief Complaint 3 M FU E-ORDER 3 MO FU CAROTID STENOSIS 30 DAY MONITOR Palpitations 14 day event recorder DO ORDERS FROM JANUARY ROUTINE CAROTID 2 WK FU Reason for Visit Cardiac murmur Fatigue Palpitations Shortness of breath H/O coronary artery bypass surgery History of coronary artery stent placement Hyperlipemia Anemia Ulcerative colitis Carotid stenosis, bilateral Anemia Ulcerative colitis Chief Complaint 2 WK FU ENTEROGRAPHY COLITIS Reason for Visit Anemia Ulcerative colitis Chief Complaint ENTEROGRAPHY COLITIS 5 MO FU INT LABS Reason for Visit Anemia Ulcerative colitis Chief Complaint 5 MO FU INT LABS NEW PT - ANEMIA MED ONC Reason for Visit Anemia Ulcerative colitis Iron deficiency anemia Lung cancer Chief Complaint NEW PT - ANEMIA Headache, unspecified MED ONC Reason for Visit Iron deficiency anem ia Lung cancer Chief Complaint Admit Date NAFLD, LIVER FIBROSIS, INCLUDE SPLEEN Fe bruary 2024 8:24am 6MO LABS February 22, 2025 12: 57pm MED ONC February 22, 2025 1:1 5pm 6 M FU May 09, 2025 10:3 8am Reason for Visit Admit Date Lung cancer February 22, 2025 12: 57pm Iron deficiency anemia February 22, 2025 12:57pm Chief Complaint Admit Date NAFLD, LIVER FIBROSIS, INCLUDE SPLEEN Fe bruary 2024 8:24am 6MO LABS February 22, 2025 12: 57pm MED ONC February 22, 2025 1:1 5pm 6 M FU May 09, 2025 10:3 8am E-ORDER 2 ORDERING FRANCIS May 09, 2025 11:16am Reason for Visit Admit Date Lung cancer February 22, 2025 12: 57pm Iron deficiency anemia February 22, 2025 12:57pm Esophageal dysphagia May 09, 2025 10: 38am Colitis May 09, 2025 10:3 8am Fatty liver May 09, 2025 10:3 8am Reason for Referral Specialty Diagnoses / Procedures Referred By Paulie yañez Referred To Contact CT IMAGING Diagnoses Occlusion and stenosis of unspecified carotid artery Procedures CTA NECK W IVCON CT ANGIOGRAPHY NECK W/CONTRAST/NONCONTRAST Deyanira Reilly MD [address] [place] [phone] [address] Imaging [place] [address] Referral ID Status Reason Start Date Expiration Date Visits Requested Visits Authorized [id number] Pending Review Auto-Generat ed Referral 11/17/2024 1 1 Specialty Diagnoses / Procedures Referred By Paulie yañez Referred To Contact CT IMAGING Diagnoses Occlusion and stenosis of unspecified carotid artery Procedures CTA HEAD W IVCON CT ANGIOGRAPHY HEAD W/CONTRAST/NONCONTRAST Deyanira Reilly MD [address] [place] [address] Ct Imaging [place] [address] Referral ID Status Reason Start Date Expiration Date Visits Requested Visits Authorized [id number] Pending Review Auto-Generat ed Referral 11/17/2024 1 1 Referral ID Status Reason Start Date Expiration Date V isits Requested Visits Authorized [id number] Closed Auto-Generate d Referral 10/19/2023 11/17/2024 1 1 Referral ID Status Reason Start Date Expiration Date V isits Requested Visits Authorized [id number] Closed Auto-Generate d Referral 10/19/2023 11/17/2024 1 1 Specialty Diagnoses / Procedures Referred By Paulie yañez Referred To Contact Cardiology Diagnoses SVT (supraventricular tachycardia) (HCC) Palpitations S/P coronary artery stent placement Essential hypertension Coronary artery disease of [place]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 angina pectoris (HCC) Presence of stent in left circumflex coronary artery Presence of stent in right coronary artery S/P CABG x 4 Procedures CONSULT TO CARDIOLOGY OFFICE/OUTPATIENT NEW HIGH MDM 60 MINUTES Isis Best APRN.MUSIC MINISTER [address] [place] [address] Referral ID Status Reason Start Date Expiration Date Visits Requested Visits Authorized [id number] Authorized PCP Requested Referral 02/15/2024 02/14/2025 1 1 Additional Source Comments INFORMATION SOURCE (unrecogn ized section and content) DATE CREATED AUTHOR 05/19/2018 [facility] DATE CREATED AUTHOR AUTHOR'S ORGANIZ ATION 05/20/[address] [facility] DATE CREATED AUTHOR AUTHOR'S ORGANIZ ATION 05/29/[address] [facility] [place] [facility] DATE CREATED AUTHOR AUTHOR'S ORGANIZ ATION 07/15/2019 [facility] DATE CREATED AUTHOR AUTHOR'S ORGANIZ ATION 06/20/[address] [facility] [facility] DATE CREATED AUTHOR AUTHOR'S ORGANIZ ATION 09/29/2024 [facility] DATE CREATED AUTHOR AUTHOR'S ORGANIZ ATION 05/18/2025 [facility] Goals (unrecognized section and content) Goals may be documented in a n alternate sectionGoals may be documented in an alternate sectionGoals may be documented in an alternate sectionGoals may be documented in an alternate sectionGoals may be documented in an alternate sectionGoals may be documented in an alternate sectionGoals may be documented in an alternate sectionGoals may be documented in an alternate sectionGoals may be documented in an alternate sectionGoals may be documented in an alternate sectionGoals may be documented in an alternate sectionGoals may be documented in an alternate sectionGoals may be documented in an alternate sectionGoals may be documented in an alternate sectionGoals may be documented in an alternate sectionGoals may be documented in an alternate sectionGoals may be documented in an alternate sectionGoals may be documented in an alternate sectionGoals may be documented in an alternate sectionGoals may be documented in an alternate sectionGoals may be documented in an alternate sectionGoals may be documented in an alternate sectionGoals may be documented in an alternate section Care Teams (unrecognized sec tion and content) Team Status: Active Member Role Status Dates Dr. David Sy MD Family Provider Active Dr. David Sy MD Primary Care Provider Activ e Team Status: Inactive Member Role Status Dates Dr. David Sy MD Primary Care Provider, Refe rring Provider Active Casi Verma COLOR CONTROL OPERATOR, COLOR CONTROL OPERATOR-C Attending Provider Active Team Status: Inactive Member Role Status Dates Dr. David Sy MD Primary Care Provider, Refe rring Provider Active Dr. Charlie Corcoran DO Attending Provider Active Team Status: Active Member Role Status Dates Dr. David Sy MD Primary Care Provider Activ e Marguerite Torres Attending Provider Active Team Status: Inactive Member Role Status Dates Dr. David Sy MD Primary Care Provider, Atte nding Provider Active Team Status: Inactive Member Role Status Dates Dr. David Sy MD Primary Care Provider Activ e Casi Verma COLOR CONTROL OPERATOR, COLOR CONTROL OPERATOR-C Attending Provider, Referring P serena Active Team Status: Inactive Member Role Status Dates Dr. David Sy MD Primary Care Provider Activ e Dr. Charlie Corcoran DO Attending Provider Active Team Status: Inactive Member Role Status Dates Dr. David Sy MD Primary Care Provider Activ e Dr. Charlie Corcoran DO Attending Provider, Referring Provider Active Team Status: Inactive Member Role Status Dates Dr. David Sy MD Primary Care Provider, Refe rring Provider Active Dr. Gamaliel Young MD Attending Provider Active Team Status: Active Member Role Status Dates Dr. David Sy MD Primary Care Provider Activ e Dr. Gamaliel Young MD Attending Provider Active Team Status: Inactive Member Role Status Dates Dr. David Sy MD Primary Care Provider Activ e Dr. Gamaliel Young MD Attending Provider Active Team Status: Active Member Role Status Dates Dr. David Sy MD Primary Care Provider Activ e Dr. Gamaliel Young MD Attending Provider, Referring Provider Active Team Status: Inactive Member Role Status Dates Dr. David Sy MD Primary Care Provider Activ e Dr. Gamaliel Young MD Attending Provider, Referring Provider Active Team Status: Active Member Role Status Dates Dr. David Sy MD Primary Care Provider, Atte nding Provider Active Team Status: Active Member Role Status Dates Dr. David Sy MD Primary Care Provider Activ e Dr. Ye Olson MD Attending Provider, Referring Provider Active Team Status: Inactive Member Role Status Dates Dr. David Sy MD Primary Care Provider Activ e Dr. Ye Olson MD Attending Provider, Referring Provider Active Team Status: Active Member Role Status Dates Dr. David Sy MD Primary Care Provider Activ e Casi Verma COLOR CONTROL OPERATOR, COLOR CONTROL OPERATOR-C Attending Provider, Referring P serena Active Team Status: Active Member Role Status Dates Dr. David Sy MD Primary Care Provider, Refe rring Provider Active Dr. Charlie Corcoran DO Attending Provider, Other Prov ider Active Team Status: Inactive Member Role Status Dates Dr. David Sy MD Primary Care Provider, Refe rring Provider Active Dr. Ye Olson MD Attending Provider Active Team Status: Active Member Role Status Dates Dr. David Sy MD Primary Care Provider Activ e Casi Verma COLOR CONTROL OPERATOR, COLOR CONTROL OPERATOR-C Attending Provider Active Team Status: Inactive Member Role Status Dates Dr. David Sy MD Primary Care Provider, Attending Provider, Referring Provider Active Team Status: Active Member Role Status Dates Dr. David yS MD Primary Care Provider Activ e Dr. Mely Hou MD Attending Provider Active Casi Verma COLOR CONTROL OPERATOR, COLOR CONTROL OPERATOR-C Referring Provider Active Manager Long Term Care Relationship Specialty Start Date End Date Tyrel Sy MD [address] [place] [id number] PCP - General 01/02/09 Ye Ceballos V [address] [place] [address] Referring Internal Medicine 02/07/21 Manager Long Term Care Relationship Specialty Start Date End Date Tyrel Sy MD [address] [place] [address] PCP - General 01/02/09 Ye Ceballos V [address] [place] [phone] Referring Internal Medicine 02/07/21 Manager Long Term Care Relationship Specialty Start Date End Date Tyrel Sy MD [address] [place], [place] [id number] PCP - General 01/02/09 Ye Ceballos V [address] [place] [phone] Referring Internal Medicine 02/07/21 Manager Long Term Care Relationship Specialty Start Date End Date Tyrel Sy MD [address] [place], [place] [id number] PCP - General 01/02/09 Ye Ceballos V [address] [place] [phone] Referring Internal Medicine 02/07/21 Manager Long Term Care Relationship Specialty Start Date End Date Tyrel Sy MD [address] [place], [place] [id number] PCP - General 01/02/09 Ye Ceballos V [address] [place] [phone] Referring Internal Medicine 02/07/21 Manager Long Term Care Relationship Specialty Start Date End Date Tyrel Sy MD [address] [place], [place] [id number] PCP - General 01/02/09 Ye Ceballos V [address] [place] [phone] Referring Internal Medicine 02/07/21 Manager Long Term Care Relationship Specialty Start Date End Date Tyrel Sy MD [address] [place], [place] [id number] PCP - General 01/02/09 Ye Ceballos V [address] [place] [phone] Referring Internal Medicine 02/07/21 Manager Long Term Care Relationship Specialty Start Date End Date Tyrel Sy MD [address] [place], [place] [id number] PCP - General 01/02/09 Ye Ceballos V [address] [place] [phone] Referring Internal Medicine 02/07/21 Manager Long Term Care Relationship Specialty Start Date End Date Tyrel Sy MD [address] [place], [place] [id number] PCP - General 01/02/09 Ye Ceballos V [address] [place] [phone] Referring Internal Medicine 02/07/21 Team Status: Active Member Role Status Dates Dr. David Sy MD Primary Care Provider Activ e Dr. Charlie Corcoran DO Attending Provider Active Team Status: Inactive Member Role Status Dates Dr. David Sy MD Primary Care Provider, Refe rring Provider Active Dr. Pablo West MD Attending Provider Active Team Status: Active Member Role Status Dates Dr. David Sy MD Primary Care Provider Activ e Dr. Pablo West MD Attending Provider, Referring Pro vider Active Manager Long Term Care Relationship Specialty Start Date End Date Tyrel Sy MD [address] [place] [address] PCP - General 01/02/09 Ye Ceballos V [address] [place] [address] Referring Internal Medicine 02/07/21 Team Status: Inactive Member Role Status Dates Dr. David Sy MD Primary Care Provider Activ e Radha Rowan MD Attending Provider, Referring Provide r Active Manager Long Term Care Relationship Specialty Start Date End Date Tyrel Sy MD [address] [place] [address] PCP - General 01/02/09 Ye Ceballos V [address] [facility] [place] [address] Referring Internal Medicine 02/07/21 Team Status: Active Member Role Status Dates Dr. Tyrel Sy MD Primary Care Provider Acti ve Team Status: Inactive Member Role Status Dates Dr. Tyrel Sy MD Primary Care Provider Acti ve Start: January 16, 2025 End: January 16, 2025 Dr. Jameel Anne MD Attending Provider Active Start: January 16, 2025 End: January 16, 2025 Dr. Jameel Anne MD Referring Provider Active Start: January 16, 2025 End: January 16, 2025 Team Status: Inactive Member Role Status Dates Dr. Tyrel Sy MD Primary Care Provider Acti ve Start: February 22, 2025 End: February 22, 2025 Dr. Tyrel Sy MD Referring Provider Active Start: February 22, 2025 End: February 22, 2025 Dr. Pablo West MD Attending Provider Active S tart: February 22, 2025 End: February 22, 2025 Team Status: Active Member Role Status Dates Dr. Tyrel Sy MD Primary Care Provider Acti ve Start: February 22, 2025 Dr. Pablo West MD Attending Provider Active S tart: February 22, 2025 Dr. Pablo West MD Referring Provider Active S tart: February 22, 2025 Team Status: Inactive Member Role Status Dates Dr. Tyrel Sy MD Primary Care Provider Acti ve Start: May 09, 2025 End: May 09, 2025 Dr. Tyrel Sy MD Referring Provider Active Start: May 09, 2025 End: May 09, 2025 MARIA LUZ Ward Attending Provider Active Start: May 09, 2025 End: May 09, 2025 Team Status: Inactive Member Role Status Dates Dr. Tyrel Sy MD Primary Care Provider Acti ve Start: May 09, 2025 End: May 09, 2025 Dr. Tyrel Sy MD Other Provider Active Start: May 09, 2025 End: May 09, 2025 MARIA LUZ Ward Attending Provider Active Start: May 09, 2025 End: May 09, 2025 MARIA LUZ Ward Referring Provider Active Start: May 09, 2025 End: May 09, 2025 Source Comments (unrecognize d section and content) [...] (unrecogniz ed section and content) Reason Comments New Patient Ref by pcp h/o left heart cath with Dr. Lopez Reason Comments Results Reason Comments Radiology NM Specialty Diagnoses / Procedures Referred By Contac t Referred To Contact MOLECULAR & FUNCTIONAL IMAGING Diagnoses Coronary artery disease of [place]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 angina pectoris (HCC) HANCOCK (dyspnea on exertion) Procedures NM CARDIAC PERF STRESS/PHARM MYOCARDIAL SPECT MULTIPLE STUDIES Isis Lewis ZOE.MUSIC MINISTER [address] [place] [address] Molecular & Functional Imaging [address] [id number] Referral ID Status Reason Start Date Expiration Date V isits Requested Visits Authorized [id number] Closed Auto-Generate d Referral 10/01/2023 10/30/2024 1 1 Reason Comments Carotid artery stenosis Karolina is new pt rfd by Isis Lewis CNP Reason Comments Radiology CT Specialty Diagnoses / Procedures Referred By Contac t Referred To Contact CT IMAGING Diagnoses Occlusion and stenosis of unspecified carotid artery Procedures CTA NECK W IVCON CT ANGIOGRAPHY NECK W/CONTRAST/NONCONTRAST Deyanira Reilly MD [address] [place] [address] [place] [address] Referral ID Status Reason Start Date Expiration Date V isits Requested Visits Authorized [id number] Closed Auto-Generate d Referral 10/19/2023 11/17/2024 1 1 Reason Onset Date Comments Cardiac clearance needed 01/13/2024 Reason Comments Cardiac Clearance Reason Comments General Weakness Reason Comments Post Op R CEA Reason Comments CARD Follow Up 6 Month FOR RECORDS PERTAINING TO PATIENTS WHO ARE [...] BE BASED ON THE PRIMARY CLINICAL RECORDS. [employer] provides no warranty or guarantee of the accuracy or completeness of information in this document.
== END | disposition home or self-care (01) ==
LOC: MFPLAB 14:10
PROVIDERS: PCP Family Medicine; Visit Provider Family Medicine
DX: R53.83 Other fatigue (principal)
CPT/HCPCS: 36415; 80053; 82533; 82607; 82728; 83540; 84443; 85025; 85652; 87086; 87088; 87186

== ENCOUNTER → 2025-10-01 | Outpatient (CLI) | payer MEDICARE, MEDICAID, SELFPAY | END | disposition home or self-care (01) | LOC: PSN 12:13 | PROVIDERS: PCP Family Medicine; Referring Provider Nurse Practitioner Family; Visit Provider Nurse Practitioner Family | DX: R06.02 Shortness of breath (principal) | CPT/HCPCS: 94060; 94726; 94729 ==